=== PATIENT | male | born 1970 | race Caucasian/White ===

== ENCOUNTER → 2018-06-10 16:42 | Outpatient (REF) | payer OTHER, SELFPAY ==
[2018-06-10 20:27] LABS: Abs Immature Grans 0.01 k/cumm (0.0-0.09); Absolute Basophil Count 0.02 k/cumm (0.0-0.2); Absolute Eosinophil Count 0.11 k/cumm (0.0-0.7); Absolute Lymphocyte Count 1.48 k/cumm (1.2-3.4); Absolute Monocyte Count 0.65 k/cumm (0.11-0.7); Absolute Neutrophil Count 3.71 k/cumm (1.2-6.7); Basophils % 0.3; Eosinophils % 1.8; HCT 45.1 % (40.0-50.0); HGB 15.8 g/dL (13.5-17.5); Immature Grans % 0.2; Lymphocytes % 24.7; Mean Corpuscular Volume 88.6 fL (80-95); Mean Platelet Volume 10.6 fL (8.0-11.0); Monocytes % 10.9; Neutrophils % 62.1; Platelet Count 197 x1000/uL (130-400); RBC 5.09 m/cumm (4.50-6.00); RBC Distribution Width 12.5 % (11.8-14.1); White Blood Cell Count 5.98 k/cumm (4.4-10.8)
[2018-06-10 21:08] LABS: ALT 15 U/L (12-78); AST 18 U/L (15-37); Albumin 3.4 g/dL (3.4-5.0); Alkaline Phosphatase 80 U/L (46-116); Anion Gap 10.9 mmol/L (3-11); BUN 13 mg/dL (7-18); Bilirubin, Total 0.9 mg/dL (0.2-1.0); CO2 28.1 mmol/L (21.0-32.0); CREATININE 0.97 mg/dL (0.70-1.30); Calcium 8.7 mg/dL (8.5-10.1); Chloride 101 mmol/L (98-107); Glucose 270 mg/dL (70-100); Potassium 3.8 mmol/L (3.5-5.1); Sodium 140 mmol/L (136-145)
== END ==
LOC: NCHCN 16:42
PROVIDERS: PCP Internal Medicine; Visit Provider Family Medicine
DX: R05 Cough (principal); E11.9 Type 2 diabetes mellitus without complications
CPT/HCPCS: 80053; 85025

== ENCOUNTER 2018-08-05 18:06 | Emergency (ER) | payer OTHER, SELFPAY ==
[2018-08-05 18:10] VITALS: BP 185/117; PULSE 92; RESP 20; TEMP 36.5; O2SAT 99
--- NOTE | 2018-08-05 18:37 | DI.CT_ITS ---
SYMPTOMS/DIAGNOSIS: LEFT FLANK PAIN, ? STONE CT SCAN OF THE ABDOMEN AND PELVIS: No priors. CT scan was performed without oral or intravenous contrast material. The lack of IV contrast does limit evaluation of the abdominal organs. The visualized lung bases are clear. The unenhanced liver, spleen, pancreas, gallbladder and adrenal glands are unremarkable. The kidneys show no evidence of nephrolithiasis or hydronephrosis. The urinary bladder is intact. The reproductive organs are unremarkable. The abdominal aorta shows minimal atherosclerosis but is otherwise unremarkable. Incidental note is made of a circumaortic left renal vein. No significant abdominal or pelvic adenopathy, ascites or pneumoperitoneum is present. Note is made of a small fat-containing umbilical hernia. The bowel shows no evidence of obstruction or inflammation. There is a normal appendix visualized. There are mild degenerative changes seen in the spine. IMPRESSION: No evidence of an acute abdomen.
[2018-08-05 18:48] LABS: Abs Immature Grans 0.01 k/cumm (0.0-0.09); Absolute Basophil Count 0.02 k/cumm (0.0-0.2); Absolute Eosinophil Count 0.11 k/cumm (0.0-0.7); Absolute Lymphocyte Count 1.65 k/cumm (1.2-3.4); Absolute Monocyte Count 0.87 k/cumm (0.11-0.7); Absolute Neutrophil Count 6.24 k/cumm (1.2-6.7); Basophils % 0.2; Eosinophils % 1.2; HCT 41.2 % (40.0-50.0); HGB 14.8 g/dL (13.5-17.5); Immature Grans % 0.1; Lymphocytes % 18.5; Mean Corp. HGB Concentration 35.9 g/dL (32.0-36.0); Mean Corpuscular Hemoglobin 31.2 pg (27.0-33.0); Mean Corpuscular Volume 86.7 fL (80-95); Mean Platelet Volume 10.1 fL (8.0-11.0); Monocytes % 9.8; Neutrophils % 70.2; Platelet Count 213 x1000/uL (130-400); RBC 4.75 m/cumm (4.50-6.00); RBC Distribution Width 12.7 % (11.8-14.1)
[2018-08-05 19:04] LABS: ALT 14 U/L (12-78); AST 14 U/L (15-37); Albumin 3.2 g/dL (3.4-5.0); Alkaline Phosphatase 82 U/L (46-116); Anion Gap 9.7 mmol/L (3-11); BUN 9 mg/dL (7-18); Bilirubin, Total 1.1 mg/dL (0.2-1.0); CO2 27.3 mmol/L (21.0-32.0); CREATININE 0.97 mg/dL (0.70-1.30); Calcium 8.5 mg/dL (8.5-10.1); Chloride 97 mmol/L (98-107); Glucose 234 mg/dL (70-100); Potassium 3.9 mmol/L (3.5-5.1); Sodium 134 mmol/L (136-145); Total Protein 7.4 g/dL (6.4-8.2)
[2018-08-05] MEDS: Lidocaine 5% Patch 1 PATCH TP (19:05)
[2018-08-05] MEDS: Normal Saline 1,000 ML 1000 ML IV (19:06)
[2018-08-05] MEDS: Ketorolac 30 MG/ML VIAL IM (19:07)
[2018-08-05 19:17] LABS: Bilirubin Negative (Negative); Blood Negative (Negative); Clarity Clear; Glucose >=1000 mg/dL (Negative); Ketones 15 mg/dL (Negative); Leukocyte Esterase Negative (Negative); Nitrite Negative (Negative); Specific Gravity 1.015 (1.005-1.025); pH 5.5 (5-8)
--- NOTE | 2018-08-05 19:42 | W.ED.GENAD ---
Discharge Plan Disposition Patient Disposition: HOME Condition: Good Discharge Details Chief Complaint: Nk/Back Pain Clinical Impression: Lumbago, Acute flank pain Primary Care Provider: Jerry Ibrahim ED Provider: Bello Gonzalez Home Meds and New Rx's Prescriptions: New acetaminophen [Mapap Extra Strength] 500 MG tablet 1,000 mg PO Q6H 5 Days Qty: 60 RF: 0 lidocaine [Lidoderm] 1 PATCH patch 1 ea Topical Q24H Qty: 4 RF: 0 ibuprofen [Motrin IB] 200 MG tablet 600 mg PO Q6H 5 Days Qty: 60 RF: 0 No Action hydrochlorothiazide 25 MG tablet 25 mg PO DAILY RF: 0 sertraline 50 MG tablet 50 mg PO DAILY RF: 0 testosterone [AndroGel] 75 GM gel in metered-dose pump 20.25 mg Topical DAILY Qty: 1 RF: 6 insulin glargine [Lantus U-100 Insulin] 100 UNIT/1 ML solution 62 unit SQ HS RF: 0 metformin [Glucophage] 1,000 MG tablet 1,000 mg PO BID@0800,1700 RF: 0 amlodipine 5 MG tablet 5 mg PO BID RF: 0 gabapentin 300 MG capsule 600 mg PO BID RF: 0 losartan 100 MG tablet 100 mg PO DAILY RF: 0 Discharge Instructions Instructions: Low Back Strain (ED), Flank Pain (ED) Additional Instructions: Please take the medication as directed, if you notice any worsening of your symptoms, or any new symptoms such as vomiting, diarrhea, fever, chills, shortness of breath, chest pain, numbness, weakness, or fainting , please return immediately to the emergency department for reevaluation. Please follow up with your primary care provider as soon as possible for reassessment and reevaluation. As always, it was a pleasure participating in your medical care today. Referrals: Jerry Ibrahim MD [Primary Care Provider] - Medical Decision Making This is a 48-year-old male who presents for evaluation of left-sided flank pain. Began suddenly earlier tonight. Describes it as sharp and aching in nature with some radiation towards the anterior groin region. Physical exam demonstrates no significant abnormalities but he does have reproducible left flank pain. He almost demonstrates some hyperesthesia in this area. No abdominal tenderness rebound no evidence of groin herniation. No signs of midline spinal tenderness, he has normal rectal exam, normal strength, movement. We will evaluate for urolithiasis, get a CT scan, check for any other acute etiology. No evidence of chest pain, acute shoulder pain or neck pain, with his symptoms radiating towards the groin feel that his symptoms are inconsistent with any cardiac etiology at this time. 7:[address] scan results have returned and the patient demonstrates no acute process per virtual radiology. No evidence of urolithiasis, no evidence of any other acute process or rib fracture. The patient's laboratory workup demonstrates a negative urinalysis, no significant laboratory abnormalities, no white count, no signs of a left shift or bandemia. CT scan shows no other abnormalities. The patient's vital signs have been completely stable during his entire stay. No significant electrolyte abnormalities except for mild hyperglycemia. The patient did have a Lidoderm patch that was placed, and has had improvement of his symptoms since then. His symptoms are most likely musculoskeletal in origin. Will recommend continued Tylenol, Motrin, and Lidoderm patches. We discussed red flags for which to return the patient understands. I have extensively reviewed the treatment plan and discharge instructions with the patient. I have addressed all patient concerns at this time. The patient was made aware of what symptoms to monitor for that would warrant a return to the emergency department. Discussed the plan with the patient, they demonstrate verbal understanding and agreement with our assessment and plan at this time. HPI General Date/Time Provider Initiated Documentation: 08/05/18 18:21. HPI Narrative: This is a 48-year-old male with a past medical history of diabetes, hypertension, chronic right shoulder pain and elbow pain secondary to previous injuries that is currently being managed by orthopedics, who presents today for left-sided flank pain. Patient states that he was visiting his family member at a local rehab facility when he had a sudden onset of left-sided flank pain which she describes as severe. It radiated down to his groin. It came and went in severity but was always present. He did have some dry heaving but denies any vomiting, diarrhea, he denies any acute chest pain, arm pain, shoulder pain neck pain shortness of breath, pleuritic chest pain, or other complaints. He denies history of kidney stones. His symptoms are made worse with movement, relieved by nothing. Patient also complains of 1 month of mild upper respiratory infection. He has been seen by his PCP for this. He states that he has had some congestion in his nose, but denies any severe headache, vision changes, purulent nasal discharge, ear pain or hearing changes. Patient denies any other complaints at this time. 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 He denies lifting anything particularly heavy recently, he denies any recent trauma. He denies any pertinent family history or history of IV or illicit drug use. He denies any significant tobacco abuse or cardiac history. Related Data Home Medications Medication Instructions Recorded Confirmed insulin glargine [Lantus] 62 unit SQ HS 05/02/13 08/05/18 metformin [Glucophage] 1,000 mg PO BID@0800,1700 05/02/13 08/05/18 amlodipine 5 mg PO BID 09/22/13 08/05/18 gabapentin 600 mg PO BID 09/22/13 08/05/18 losartan 100 mg PO DAILY 09/22/13 08/05/18 hydrochlorothiazide 25 mg PO DAILY tab-cap 12/10/17 08/05/18 sertraline 50 mg PO DAILY tab-cap 12/10/17 08/05/18 testosterone [Androgel] 20.25 mg TOPICAL DAILY #1 script 12/21/17 acetaminophen [Mapap Extra 1,000 mg PO Q6H 5 Days #60 tab 08/05/18 Strength] ibuprofen [Motrin Ib] 600 mg PO Q6H 5 Days #60 tab 08/05/18 lidocaine [Lidoderm] 1 ea TOPICAL Q24H #4 patch 08/05/18 Previous Rx's Medication Instructions Recorded testosterone [Androgel] 20.25 mg TOPICAL DAILY #1 script 12/21/17 acetaminophen [Mapap Extra 1,000 mg PO Q6H 5 Days #60 tab 08/05/18 Strength] ibuprofen [Motrin Ib] 600 mg PO Q6H 5 Days #60 tab 08/05/18 lidocaine [Lidoderm] 1 ea TOPICAL Q24H #4 patch 08/05/18 Allergies Allergy/AdvReac Type Severity Reaction Status Date / Time lisinopril AdvReac Mild Unverified 09/22/13 10:34 General Stated Complaint: Nk/Back Pain KALIN: 3 Review of Systems Review of Systems All systems reviewed & are unremarkable except as noted in HPI and below PFSH Social History Smoking/Tobacco Use Status: Never Exam Narrative Exam Narrative: 1.Const: Well-nourished, Well-developed, appearing stated age 2.Eyes: PERRL, no conjunctival injection, and symmetrical lids. 3.ENT: Atraumatic external nose and ears. Moist MM. Neck: Symmetric, trachea midline, No thyromegaly. 4.CVS: +S1/S2, No murmurs or gallops. Peripheral pulses 2+ and equal in all extremities. Brisk capillary refill in all extremities. 5.RESP: Unlabored respiratory effort. Clear to auscultation bilaterally. No wheezes rales or rhonchi 6.GI: Soft, Nontender/Nondistended, No hepatosplenomegaly. No guarding or rebound. 7.MSK: Normocephalic/Atraumatic, Extremities w/o deformity or ttp No cyanosis or clubbing, Normal movement of all extremities no midline tenderness to palpation over the CTLS spine. Normal ROM in flexion, extension, side bend, and rotation. Patient has +5 out of 5 strength in the lower extremities in dorsiflexion and plantarflexion, knee flexion and extension, hip flexion and extension. There is +2 over 2 dorsalis pedis pulses bilaterally. There is normal sensation to the skin with light touch at the foot, knee, and hip. Normal saddle sensation. Good sensation over the deep sural nerve area bilaterally. Rectal exam deferred. Reflexes are +2 over 4 in the patellar reflex bilaterally. +5 out of 5 strength in the medial, ulnar, radial nerve distribution bilaterally in the hands as well as intact light touch sensation to these dermatomes on the hands. Patient does have some chronic pain in the right elbow and right shoulder secondary to previous injuries that are currently being evaluated by orthopedics at the [facility]. Patient does demonstrate some reproducible left-sided flank pain on palpation and light touch. Similar to hyperesthesias. No evidence of rash or shingles 8.Skin: Warm, Dry. No rashes or lesions. 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 Sensation grossly intact, no focal neurologic deficits. 10.Psych: (AAO) x3. Appropriate mood and affect Course Vital Signs Temperature 36.5 C 08/05/18 18:10 Pulse 92 H 08/05/18 18:10 Respiratory Rate 20 08/05/18 18:10 Blood Pressure 185/117 H 08/05/18 18:10 Pulse Oximetry 99 08/05/18 18:10 Temperature 36.5 C 08/05/18 18:10 Temperature Source Skin 08/05/18 18:10 Pulse 92 H 08/05/18 18:10 Respiratory Rate 20 08/05/18 18:10 Respiratory Effort Short of Breath 08/05/18 18:13 Blood Pressure 185/117 H 08/05/18 18:10 Pulse Oximetry 99 08/05/18 18:10 Pain Level 8 08/05/18 19:07 Lab/Test Results Lab/Test Results: Laboratory Tests Range/Units 08/05/18 08/05/18 08/05/18 18:35 18:35 19:10 WBC (4.4-10.8) k/cumm 8.90 RBC (4.50-6.00) m/cumm 4.75 Hgb (13.5-17.5) g/dL 14.8 Hct (40.0-50.0) % 41.2 MCV (80-95) fL 86.7 MCH (27.0-33.0) pg 31.2 MCHC (32.0-36.0) g/dL 35.9 RDW (11.8-14.1) % 12.7 Plt Count (130-400) x1000/uL 213 MPV (8.0-11.0) fL 10.1 Immature Gran % 0.1 Neutrophils % 70.2 Lymphocytes % 18.5 Monocytes % 9.8 Eosinophils % 1.2 Basophils % 0.2 Absolute Neutrophils (1.2-6.7) k/cumm 6.24 Absolute Lymphocytes (1.2-3.4) k/cumm 1.65 Absolute Monocytes (0.11-0.7) k/cumm 0.87 H Absolute Eosinophils (0.0-0.7) k/cumm 0.11 Absolute Basophils (0.0-0.2) k/cumm 0.02 Sodium (136-145) mmol/L 134 L Potassium (3.5-5.1) mmol/L 3.9 Chloride (98-107) mmol/L 97 L Carbon Dioxide (21.0-32.0) mmol/L 27.3 Anion Gap (3-11) mmol/L 9.7 BUN (7-18) mg/dL 9 Creatinine (0.70-1.30) mg/dL 0.97 Estimated GFR/1.73 m2 (mL/min/1.73m2) >= 60.00 Glucose (70-100) mg/dL 234 H Calcium (8.5-10.1) mg/dL 8.5 Total Bilirubin (0.2-1.0) mg/dL 1.1 H AST (15-37) U/L 14 L ALT (12-78) U/L 14 Alkaline Phosphatase (46-116) U/L 82 Total Protein (6.4-8.2) g/dL 7.4 Albumin (3.4-5.0) g/dL 3.2 L Urine Color (Yellow) Yellow Urine Clarity Clear Urine pH (5-8) 5.5 Ur Specific [place] (1.005-1.025) 1.015 Urine Protein (Negative) mg/dL Negative Urine Ketones (Negative) mg/dL 15 H Urine Blood (Negative) Negative Urine Nitrite (Negative) Negative Urine Bilirubin (Negative) Negative Urine Urobilinogen (Up TO 0.2) EU/dL 1.0 H Ur Leukocyte Esterase (Negative) Negative Urine Glucose (Negative) mg/dL >=1000 H
--- NOTE | 2018-08-05 19:48 | DI.VRAD_ITS ---
EXAM: CT Abdomen and Pelvis Without Intravenous Contrast CLINICAL HISTORY: 48 years old, male; Pain; Abdominal pain TECHNIQUE: Axial computed tomography images of the abdomen and pelvis without intravenous contrast. Coronal and sagittal reformatted images were created and reviewed. COMPARISON: No relevant prior studies available. FINDINGS: Lung bases: Unremarkable. No mass. No consolidation. ABDOMEN: Liver: Unremarkable. Gallbladder and bile ducts: Unremarkable. No calcified stones. No ductal dilation. Pancreas: Unremarkable. No ductal dilation. Spleen: Unremarkable. No splenomegaly. Adrenals: Unremarkable. No mass. Kidneys and ureters: Unremarkable. No obstructing stones. No hydronephrosis. Stomach and bowel: Unremarkable. No obstruction. No mucosal thickening. PELVIS: Appendix: No findings to suggest acute appendicitis. Bladder: Unremarkable. No stones. Reproductive: Unremarkable as visualized. ABDOMEN and PELVIS: Intraperitoneal space: Unremarkable. No free air. No significant fluid collection. Bones/joints: Mild degenerative spondylosis of the lower thoracic and lumbar spine. No acute fracture. No dislocation. Soft tissues: Tiny umbilical hernia containing fat. Vasculature: Unremarkable. No abdominal aortic aneurysm. Lymph nodes: Unremarkable. No enlarged lymph nodes. IMPRESSION: No acute findings. Dictated and Authenticated by: Clarence Cortez MD. Ordering:RANDAL FOX MD
[2018-08-05 20:16] VITALS: BP 154/91; PULSE 80; RESP 16; TEMP 36.8; O2SAT 95
== END 2018-08-05 20:20 | disposition home or self-care (01) ==
PROVIDERS: Emergency Provider Student in an Organized Health Care Education/Training Program; PCP Internal Medicine
DX: M54.5 Low back pain (principal); R10.32 Left lower quadrant pain; E11.65 Type 2 diabetes mellitus with hyperglycemia; Z79.4 Long term (current) use of insulin; I10 Essential (primary) hypertension
CPT/HCPCS: 36415; 80053; 96360; 96372; 99284; 74176; 81003; 85025; J1885

== ENCOUNTER 2018-11-11 16:33 | Outpatient (REF) | payer OTHER, SELFPAY ==
[2018-11-11 21:05] LABS: Abs Immature Grans 0.01 k/cumm (0.0-0.09); Absolute Basophil Count 0.03 k/cumm (0.0-0.2); Absolute Eosinophil Count 0.07 k/cumm (0.0-0.7); Absolute Lymphocyte Count 1.71 k/cumm (1.2-3.4); Absolute Monocyte Count 0.45 k/cumm (0.11-0.7); Basophils % 0.5; Eosinophils % 1.3; HCT 46.5 % (40.0-50.0); HGB 16.6 g/dL (13.5-17.5); Immature Grans % 0.2; Lymphocytes % 31.3; Mean Corp. HGB Concentration 35.7 g/dL (32.0-36.0); Mean Corpuscular Hemoglobin 30.7 pg (27.0-33.0); Mean Corpuscular Volume 86.1 fL (80-95); Mean Platelet Volume 10.5 fL (8.0-11.0); Monocytes % 8.2; Neutrophils % 58.5; Platelet Count 188 x1000/uL (130-400); RBC Distribution Width 13.2 % (11.8-14.1); White Blood Cell Count 5.47 k/cumm (4.4-10.8)
[2018-11-11 22:08] LABS: Iron 81 ug/dL (50-175); Total Iron Binding Capacity 293 ug/dL (250-450); Transferrin Sat 28 % (20-55)
[2018-11-11 22:24] LABS: Anion Gap 10.2 mmol/L (3-11); BUN 12 mg/dL (7-18); CO2 26.8 mmol/L (21.0-32.0); CREATININE 1.02 mg/dL (0.70-1.30); Calcium 9.2 mg/dL (8.5-10.1); Chloride 103 mmol/L (98-107); Ferritin 458 ng/mL (8-388); Glucose 228 mg/dL (70-100); Magnesium 1.7 mg/dL (1.8-2.4); Potassium 4.4 mmol/L (3.5-5.1); Sodium 140 mmol/L (136-145); TSH (W/Ref FT4) 1.52 uIU/mL (0.358-3.74)
== END 2018-11-11 16:53 ==
LOC: NCHCN 16:33
PROVIDERS: PCP Internal Medicine; Visit Provider Nurse Practitioner Family
DX: R55 Syncope and collapse (principal); B37.2 Candidiasis of skin and nail
CPT/HCPCS: 80048; 82728; 83540; 83550; 83735; 84443; 85025

== ENCOUNTER 2018-11-25 01:20 | Outpatient (CLI) | payer OTHER, SELFPAY ==
--- NOTE | 2018-11-28 10:39 | HOLTER_ITS ---
DATE OF DICTATION: November 28, 2018 HOLTER MONITOR REPORT 48-HOUR STUDY Baseline rhythm sinus. Rare single PAC. No SVT or atrial fibrillation. No ventricular ectopy. Heart rates as low as 40-45 bpm, sinus bradycardia, this occurring at 1207 hours. Review of heart rate would suggest lowest heart rates in the manager water wastewater hours up to approximately noon on the first day, manager water wastewater hours to 10 a.m. second day. No symptoms. Average heart rate 72 bpm.
== END 2018-11-25 01:40 ==
PROVIDERS: PCP Internal Medicine; Visit Provider Nurse Practitioner Family
DX: R55 Syncope and collapse (principal); R00.1 Bradycardia, unspecified
CPT/HCPCS: 93225

== ENCOUNTER 2018-11-27 17:20 | Outpatient (CLI) | payer OTHER, SELFPAY | END 2018-11-27 17:40 | PROVIDERS: PCP Internal Medicine; Visit Provider Nurse Practitioner Family | DX: R55 Syncope and collapse (principal); R00.1 Bradycardia, unspecified | CPT/HCPCS: 93226 ==

== ENCOUNTER 2019-12-27 13:58 | Outpatient (CLI) | payer OTHER, SELFPAY | END 2019-12-27 14:18 | PROVIDERS: PCP Internal Medicine; Visit Provider Orthopaedic Surgery | DX: Z01.818 Encounter for other preprocedural examination (principal) ==

== ENCOUNTER 2020-01-08 13:21 | Day surgery (SDC) | payer OTHER, SELFPAY ==
[2020-01-08] VITALS (9 sets, daily range): BP systolic 90–132; BP diastolic 32–88; PULSE 66–79; RESP 12–18; TEMP 36.3–36.9; O2SAT 95–98
[2020-01-08] MEDS: Lactated Ringers 1,000 ML 80 ML IV (14:13)
[2020-01-08] MEDS: ceFAZolin 2 GM/50 ML BAG IVPB (15:10)
--- NOTE | 2020-01-08 15:35 | SKI_PTH ---
PATIENT: Lino Ruiz LOC: [facility] U#:[id number] AGE/SX: 49/M ROOM: RE01/08/[address]: Andi Farrell MD : 1970 BED: DIS: 01/08/2020 SPEC #: [id number] RECD: 01/08/20 18:10 STATUS: ERIK REBrant #: [id number] LIV: 01/08/20 15:[address]: Andi Farrell DEPT: Surgical Specimen RECD BY: Patricia Elias ENTERED: 01/08/20 18:11 SP TYPE: SKI OTHR DR: Jerry Ibrahim Tissues: 1 - SKIN BIOPSY(SHAVE/PUNCH) Procedures: SPECIAL STAIN 2 GROSS AND MICRO LEVEL 4 Comments: [id number]
[2020-01-08] MEDS: Bupivacaine 0.5% Pres-Free 30 ML VIAL (15:36)
--- NOTE | 2020-01-08 15:49 | PDOC.DSDIS_ITS ---
Discharge Plan Disposition Patient Disposition: HOME Condition: Good Discharge Details Reason For Visit: MASS ARCH (R) FOOT Attending Provider: Andi Farrell Primary Care Provider: Jerry Ibrahim Home Meds and New Rx's Prescriptions: New hydrocodone-acetaminophen 5-325 mg tablet 1 tab PO Q6H PRN (Reason: pain) Qty: 7 RF: 0 Continued magnesium oxide 400 mg (241.3 mg magnesium) tablet 200 mg PO DAILY RF: 0 losartan-hydrochlorothiazide 100-25 mg tablet 1 tab PO DAILY RF: 0 tramadol 50 mg tablet 50 mg PO Q6H PRNRF: 0 terazosin 5 mg capsule 5 mg PO QHS RF: 0 valacyclovir 500 mg tablet 500 mg PO BID RF: 0 nystatin 100,000 unit/gram cream 1 applic TP BID RF: 0 albuterol sulfate [Ventolin HFA] 90 mcg/actuation HFA aerosol inhaler 2 puff IH Q4H PRNRF: 0 Levemir U-100 Insulin 100 unit/mL solution 50 unit SC QHS RF: 0 sertraline [Zoloft] 50 mg tablet 50 mg PO DAILY RF: 0 metformin [Glucophage] 1,000 MG tablet 1,000 mg PO BID@0800,1700 RF: 0 gabapentin 300 MG capsule 600 mg PO BID RF: 0 amlodipine 5 mg tablet 10 mg PO DAILY RF: 0 Discharge Instructions Additional Instructions: Try to elevate R foot on 1-2 pillows as much as possible for next 48 hours. Keep dressings dry and in place for 72 hours. After 72 hours, may remove dressings, shower, and get incision wet. Pat wound dry after showering and cover with large band-aid. Put as much weight on R foot as your discomfort allows. Take tylenol or ibuprofen for mild pain. Take hydrocodone for breakthru pain, if needed. Follow up with in 2 weeks. Referrals: Andi Farrell MD [ [facility] STAFF PHYSICIAN] - (f/u in 2 weeks.) Activity:: Activity as Tolerated Remove Dressings/Wound Care:: 72 hours Shower/Bathe:: 72 hours Diet:: As Tolerated Discharge Orders Discharge Orders: Discharge Order (Routine); Ordered 01/08/20 Ordered By: Andi Farrell
[2020-01-08] MEDS: fentaNYL 100 MCG/2 ML VIAL IVP ×2 (16:30→16:40)
[2020-01-08] MEDS: HYDROcodone 5/Acetaminophen 325 TAB PO (17:27)
--- NOTE | 2020-01-09 16:11 | ROE_ITS ---
DATE OF PROCEDURE: January 08, 2020 PREOPERATIVE DIAGNOSIS: Subcutaneous mass, right arch. POSTOPERATIVE DIAGNOSIS: Same. PROCEDURE: Excisional biopsy of subcutaneous mass, arch right foot. ANESTHESIA: General. SURGEON: Andi Farrell M.D. INDICATIONS: This is a 49-year-old white male who noted a mass in the arch of his right foot in appr oximately September of 2019. He began having pain in the area of the arch of his right foot over the next few months as he was working. He then developed some Achilles tendonitis and was put in a work boot. The Achilles tendonitis appeared to calm down, but his arch pain got worse. He was seen and e xamined by me. I felt that he had a nodule in his plantar fascia that was painful. It was in a non- weightbearing portion of the arch. It was fairly large. Probably 2.5 cm in its longest direction. I recommended excisional biopsy to alleviate his discomfort. The risks and complications of the proc edure were explained to the patient in detail preoperatively. PROCEDURE: The patient was taken to the operating room on 01/08/2020. He was placed supine on the ope rating table and a general anesthetic was administered. Once good anesthesia was obtained, a proxima l tourniquet was applied to the right thigh and the right foot and ankle were prepped and draped free in the usual sterile fashion. The right lower extremity was exsanguinated by elevation for two jose nancy and the tourniquet was inflated to 350 mmHg. A longitudinal incision was made over the medial arch just medial to the subcutaneous mass. The inci colton was carried down through the skin and subcu down to the plantar fascia. The incision was about three inches in length. I could easily palpate the nodule. The nodule was really a thickened area o f the plantar fascia. With sharp dissection I freed the plantar fascia from the musculature undernea th, or deep to it. I then excised the thickened plantar fascia nodule and sent it for pathologic exa mination. The rest of the plantar fascia looked normal and did not have any further or other nodules . The wound was irrigated with saline solution. Subcutaneous veins were cauterized. The wound wendi ins were infiltrated with 0.5% Marcaine with an epinephrine solution. The skin edges were approximat ed with interrupted #4-0 nylon sutures. The wound was dressed with Xeroform gauze, sterile gauze 4x4 's, wrapped with a 4-inch Kerlix bandage and wrapped with an RANDA bandage. He was placed in a postop shoe. The tourniquet was released; there was no breakthrough bleeding to the dressings. The patient tolerated the procedure well. His anesthesia was reversed without complications and he was discharg ed to the recovery room in good condition. The patient was discharged home from the Day Surgery Unit when fully recovered from his general anest hesia. He was given instructions to try to elevate his right foot on 1 to 2 pillows as much as possi ble for the next 48 hours. He is to limit his ambulation during this time. He may be weightbearing, as tolerated, to the right foot. He is to keep his dressings clean and dry until he follows up in a week for a wound check. He was given a prescription for breakthrough pain of Hydrocodone with APAP 5/325, one p.o. q6h p.r.n. He will take Tylenol or ibuprofen for mild pain. He will follow-up with me in one week.
== END 2020-01-08 18:26 | disposition home or self-care (01) ==
PROVIDERS: PCP Internal Medicine; Visit Provider Orthopaedic Surgery
PROC: (CPT 28043; principal; 2020-01-08 11:30)
DX: M72.2 Plantar fascial fibromatosis (principal)
CPT/HCPCS: 28043; 88305; 88313; J0690; J1100; J1885; J2405; J3010

== ENCOUNTER 2021-07-17 17:25 | Outpatient (REF) | payer OTHER, SELFPAY ==
[2021-07-17 20:47] LABS: BUN 14 mg/dL (7-18); Chloride 103 mmol/L (98-107); Glucose 237 mg/dL (74-106); Potassium 4.4 mmol/L (3.5-5.1); Sodium 140 mmol/L (136-145)
[2021-07-17 20:54] LABS: Hemoglobin A1C 7.7 % (<5.7)
== END 2021-07-17 17:26 | disposition home or self-care (01) ==
LOC: NCHCN 17:25
PROVIDERS: PCP Internal Medicine; Visit Provider Family Medicine
DX: E11.9 Type 2 diabetes mellitus without complications (principal)
CPT/HCPCS: 80048; 83036

== ENCOUNTER 2021-07-23 00:57 | Outpatient (CLI) | payer OTHER, SELFPAY ==
[2021-07-23 11:17] LABS: Source Nasal/Nares
[2021-07-23 14:12] LABS: COVID-19 PCR Negative (Negative)
== END 2021-07-23 00:58 | disposition home or self-care (01) ==
PROVIDERS: PCP Internal Medicine; Visit Provider Podiatrist
DX: Z20.822 Contact with and (suspected) exposure to COVID-19 (principal); Z01.818 Encounter for other preprocedural examination
CPT/HCPCS: 87635

== ENCOUNTER 2021-07-25 07:42 | Day surgery (SDC) | payer OTHER, SELFPAY ==
[2021-07-25] VITALS (10 sets, daily range): BP systolic 97–153; BP diastolic 59–96; PULSE 61–81; RESP 13–18; TEMP 36.2–36.8; O2SAT 95–100; BMI 30.3
--- NOTE | 2021-07-25 07:06 | HPE_ITS ---
Date of service: 07/25/21 Time of Service: 07:06 History of Present Illness History of Present Illness Chief Complaint: Chronic Achilles tendinitis- tendinosis left lower extremity Narrative: 51-year-old white male with type 2 diabetes with chronic pain associated with left Achilles tendinosis. Nonoperative treatments have failed to provide significant relief of symptoms and he is opting for surgical intervention. [facility] Medical History Diabetes Sleep apnea does not use device Surgical History H/O arthroscopic knee surgery History of nasal surgery Hx of arthroscopy of shoulder Hx of elbow surgery torn tendon Hx of wisdom tooth extraction Social History Smoking/Tobacco Use Status: Never Smoking risk assessment performed?: Yes Alcohol Intake: current Alcohol Intake frequency: holidays/special occasions only Alcohol type: beer Drug use: Never Substance use type: does not use Current gender identity: male Additional Social history: No opportunity to talk privately Meds Allergies and Home Medications Allergies Allergy/AdvReac Type Severity Reaction Status Date / Time lisinopril AdvReac Mild Unverified 07/22/21 14:26 Home Medications Medication Instructions Recorded Confirmed Type metformin [Glucophage] 1,000 mg PO BID@0800,1700 05/02/13 07/22/21 History gabapentin 600 mg PO BID 09/22/13 07/22/21 History albuterol sulfate 90 mcg/actuation 2 puff IH Q4H PRN gm 12/04/19 07/22/21 History aerosol inhaler insulin detemir U-100 100 unit/mL 50 unit SC QHS ml 12/04/19 07/22/21 History subcutaneous solution nystatin 100,000 unit/gram topical 1 applic TP BID 12/04/19 07/22/21 History cream sertraline 50 mg tablet 50 mg PO DAILY 12/04/19 07/22/21 History terazosin 5 mg capsule 5 mg PO QHS 12/04/19 07/22/21 History tramadol 50 mg tablet 50 mg PO Q6H PRN 12/04/19 07/22/21 History valacyclovir 500 mg tablet 500 mg PO BID 12/04/19 07/22/21 History amlodipine 5 mg tablet 10 mg PO DAILY tab 12/13/19 07/22/21 History losartan 100 1 tab PO DAILY 12/13/19 07/22/21 History mg-hydrochlorothiazide 25 mg tablet magnesium oxide 400 mg (241.3 mg 200 mg PO DAILY tab 12/13/19 07/22/21 History magnesium) tablet hydrocodone-acetaminophen 1 tab PO Q6H PRN #7 tab 01/08/20 07/22/21 Rx Exam Narrative Exam Narrative: 51-year-old white male in no acute distress, awake and alert. Head is normocephalic Eyes PERRLA Hearing is adequate Uvula is midline airway looks assessable Heart had regular rate and rhythm without gallops rubs or murmurs noted Lung mcdermott are clear Abdomen was nontender bowel sounds appreciated Peripheral pulses at the ankles easily palpable, no edema Muscle groups 5 out of 5 bilaterally. Diffuse thickening of the left Achilles tendon at its watershed region consistent with tendinosis appreciated. Pain is easily elicited with gentle palpation. Remaining exam is otherwise generally benign Skeletal exam revealed good range of motion of the left ankle. No joint inflammations or gross deformities noted. Neurologically he does suffer from diabetic neuropathy with diminished sensation primarily noted distally within the feet. Impressions: Left Achilles tendinosis chronic Plan: Lady is being brought to the OR for surgical debridement left Achilles tendon. He understands risk and complications pertaining to the potential for pain, scarring, infection, tendon rupture, neurologic injury, ongoing discomfort within the tendon potentially requiring revisional procedures. All questions have been answered in detail. No promises made to final outcome of surgery.
[2021-07-25] MEDS: Lactated Ringers 1,000 ML 80 ML IV (08:28)
--- NOTE | 2021-07-25 08:30 | ANES.PREOP_ITS ---
General Info Date of Service Date Performed: 07/25/21 Height: 5 ft 10 in Weight: 95.8 kg Body Mass Index (BMI): 30.3 Surgical Procedure: Operation Date: 07/25/21 08:55 Proposed Procedures Side Surgeon p Debridement (L) Achilles Tendon/ Resection Fibroma Left Dexter Breen DPM Meds Allergies and Home Medications Allergies Allergy/AdvReac Type Severity Reaction Status Date / Time lisinopril AdvReac Mild Unverified 07/25/21 08:01 Home Medication Medication Instructions Recorded metformin [Glucophage] 1,000 mg PO BID@0800,1700 05/02/13 gabapentin 600 mg PO BID 09/22/13 albuterol sulfate 90 mcg/actuation 2 puff IH Q4H PRN gm 12/04/19 aerosol inhaler insulin detemir U-100 100 unit/mL 50 unit SC QHS ml 12/04/19 subcutaneous solution nystatin 100,000 unit/gram topical 1 applic TP BID 12/04/19 cream sertraline 50 mg tablet 50 mg PO DAILY 12/04/19 terazosin 5 mg capsule 5 mg PO QHS 12/04/19 tramadol 50 mg tablet 50 mg PO Q6H PRN 12/04/19 valacyclovir 500 mg tablet 500 mg PO BID 12/04/19 amlodipine 5 mg tablet 10 mg PO DAILY tab 12/13/19 losartan 100 1 tab PO DAILY 12/13/19 mg-hydrochlorothiazide 25 mg tablet magnesium oxide 400 mg (241.3 mg 200 mg PO DAILY tab 12/13/19 magnesium) tablet hydrocodone-acetaminophen 1 tab PO Q6H PRN #7 tab 01/08/20 Current Visit Medications: Current Medications Generic Name Dose Route Start Last Admin Trade Name Freq PRN Reason Stop Dose Admin Sodium Chloride 500 mls @ 0 mls/hr 07/25/21 06:00 Saline 500ml Bag IV PRN PRN As Directed Cefazolin Sodium 2,000 mg/ 100 mls @ 200 mls/hr 07/25/21 06:00 Sodium Chloride IVPB 07/25/21 16:00 PREOP THEODORE Ringer's Solution 1,000 mls @ 80 mls/hr 07/25/21 06:00 07/25/21 08:28 IV 08/23/21 23:59 80 mls/hr INFUSION [facility] Administration IV Miscellaneous Supplies 1 each 07/25/21 06:00 Iv Access IV DIRECTED [facility] IV Miscellaneous Supplies 1 each 07/25/21 06:00 Iv Access IV 08/23/21 23:59 DIRECTED [facility] Povidone Iodine 0 ml 07/25/21 06:00 Povidone-Iodine Soln. 118 Ml Btl TP 07/25/21 16:00 DIRECTED [facility] Sodium Chloride 0 ml 07/25/21 06:00 Normal Saline Flush 10 Ml Syr IVP PRN PRN Sodium Chloride 0 ml 07/25/21 06:00 Normal Saline Flush 10 Ml Syr IV 08/23/21 23:59 PRN PRN Sodium Chloride 0 ml 07/25/21 06:00 Normal Saline 10 Ml Vial IJ 08/23/21 23:59 DIRECTED PRN Sterile Water 0 ml 07/25/21 06:00 Water,Injection,Sterile 10 Ml Vial IJ 08/23/21 23:59 DIRECTED PRN PFSH Active Problems Active Problems: Problem Status Onset Code Plantar fascial fibromatosis M72.2 Tendonitis, Achilles, right M76.61 Syncope R55 Bronchial pneumonia J18.0 Sexual dysfunction R37 Cough R05 Preventative health care Z00.00 Tinea pedis B35.3 Night sweats R61 Diabetic peripheral neuropathy E11.42 Neck pain, chronic M54.2, G89.29 Diabetic retinopathy, background E11.3299 Overweight E66.3 Herpes, genital A60.00 Depression F32.9 Hypertension I10 Subcutaneous mass of right foot R22.41 Medical History Medical History Diabetes Sleep apnea does not use device Surgical History Surgical History H/O arthroscopic knee surgery History of nasal surgery Hx of arthroscopy of shoulder Hx of elbow surgery torn tendon Hx of wisdom tooth extraction Tobacco Smoking/Tobacco Use Status: Never Alcohol Alcohol Intake: current Alcohol intake frequency: holidays/special occasions only Alcohol type: beer Substance Use Substance use: Never Substance use type: does not use Vital Signs and Lab Results Vital Signs Most Recent Vital Signs in EMR: Most Recent Vital Signs Temp Pulse Resp BP Pulse Ox 36.3 C L 81 16 153/96 H 100 07/25/21 07:53 07/25/21 07:53 07/25/21 07:53 07/25/21 07:53 07/25/21 07:53 Point of Care Results Point of Care Results: Finger Stick Blood Glucose 275 07/25/21 08:20 Lab Results Blood Type / Crossmatch: No Data to Display Complete Blood Count: No Data to Display Complete Metabolic Panel: Sodium Level 140 mmol/L (136-145) 07/17/21 11:30 07/17/21 Potassium Level 4.4 mmol/L (3.5-5.1) 07/17/21 11:30 07/17/21 Chloride Level 103 mmol/L (98-107) 07/17/21 11:30 07/17/21 Carbon Dioxide Level 32.0 mmol/L (21.0-32.0) 07/17/21 11:30 07/17/21 Blood Urea Nitrogen 14 mg/dL (7-18) 07/17/21 11:30 07/17/21 Creatinine 1.0 mg/dL (0.70-1.30) 07/17/21 11:30 07/17/21 Estimated GFR/1.73 m2 >= 60.00 (mL/min/1.73m2) 07/17/21 11:30 07/17/21 Calcium Level 9.0 mg/dL (8.5-10.1) 07/17/21 11:30 07/17/21 Glucose Level 237 mg/dL (74-106) H 07/17/21 11:30 07/17/21 Hemoglobin A1c 7.7 % (<5.7) H 07/17/21 11:30 07/17/21 Liver Function Panel: No Data to Display Coagulation Panel: No Data to Display Cardiac Panel: No Data to Display Arterial Blood Gas: No Data to Display Venous Blood Gas: No Data to Display Pancreas Panel: No Data to Display Thyroid Panel: No Data to Display Infectious Disease: Coronavirus (COVID-19)(PCR) Negative (Negative) 07/23/21 09:41 07/23/21 Coronavirus 2019 Source Nasal/Nares 07/23/21 09:41 07/23/21 Blood Cultures: No Data to Display Toxicology Panel: No Data to Display Anesthesia Assessment and Plan Anesthesia History Personal History: No History of Anesthesia Complications Family History: No Family History of Anesthesia Complications Exercise Tolerance Exercise Tolerance: Metabolic Equivalents>4 Pertinent Negatives Pertinent Negatives: No Symptoms of GERD Cardiac & Pulmonary Exam Cardiac Exam: Normal S1/S2 Heart Sounds Pulmonary Exam: Clear Bilateral Breath Sounds Airway Exam Known Difficult Airway: No Mallampati Class: 2 Mouth Opening: Normal (> 3cm) Thyromental Distance: Greater than 3 cm Neck Range of Motion: Full ROM Neck Circumference: Normal Teeth Condition: Normal Dentition and Removable Dentures/Plates Upper ASA Classification ASA Score: ASA 3 Emergency Case?: No NPO Status NPO Status: NPO Clears >2 hours, Solids >8 hours Anesthesia Plan Resuscitation Status: Full Code Anesthesia Technique: General Anesthesia Airway Planned: Natural Airway Monitors Used: Standard Monitors
[2021-07-25] MEDS: ceFAZolin 2,000 MG in Normal Saline 100 ML 200 ML IVPB (09:15)
[2021-07-25] MEDS: Lidocaine 1% Multi-Dose 50 ML VIAL (09:32)
[2021-07-25] MEDS: Bupivacaine 0.5% Pres-Free 30 ML VIAL (09:32)
--- NOTE | 2021-07-25 10:48 | BONE_PTH ---
PATIENT: Lino Ruiz LOC: [facility] U#:[id number] AGE/SX: 51/M ROOM: RE07/25/[address]: Dexter Breen : 1970 BED: DIS: 07/25/2021 SPEC #: [id number] RECD: 07/25/21 12:42 STATUS: ERIK REQ #: [id number] LIV: 07/25/21 10:[address]: Dexter Breen DEPT: Surgical Specimen RECD BY: Patricia Elias ENTERED: 07/25/21 12:43 SP TYPE: Bone OTHR DR: Jerry Ibrahim Tissues: 1 - BONE BX/CURRETTE NOT PATH FRACTURE Procedures: GROSS AND MICRO LEVEL 4 Comments: [id number]
--- NOTE | 2021-07-25 11:17 | W.PM.OP ---
Date of service: 07/25/21 Time of Service: 11:17 Operative Note Operative Note DATE OF PROCEDURE: 07/25/21 PRE-OP DIAGNOSIS: Achilles tendinosis left lower extremity; plantar fibromatosis left foot Complete Achilles tendon rupture left lower extremity; plantar fibromatosis left foot PROCEDURE: 1.: Open primary repair left Achilles tendon rupture with debridement 2. Excision plantar fibroma left foot SURGEON: Dexter Breen ANESTHESIA TYPE: General:No Airway Refer to Anesthesia Record ESTIMATED BLOOD LOSS: 25 PATHOLOGY: other TOURNIQUET TIME: 0 COMPLICATIONS: None Patient was transported to: same day Patient's condition: stable Indications: 51-year-old white male with chronic Achilles tendinosis left lower extremity interfering with daily activities and work requiring surgical intervention. Also suffering from a plantar fibroma within the medial slip of the plantar fascia causing pain with weightbearing shoe gear and ambulation. Both conditions fail to respond to nonoperative treatments. Lino understands risk and complications of surgery pertaining to pain, scarring, infection, tendon rupture, plantar fibroma recurrence, neurologic injury, the potential for revisional procedures. No promises have been made to the final outcome of surgeries. Informed consent has been obtained. Findings: Upon opening the Achilles tendon surgical site hemorrhagic change within the tendon was noted and upon entering that tissue layer a complete rupture was visualized. Procedure Description: Lino was brought to the operative suite placed in the supine position with the left lower extremity was prepped and draped in the usual podiatric fashion. Anesthesia was achieved through IV general by the anesthesia department. Local block of the Achilles tendon as well as the plantar fibroma was achieved with 30 cc of a 50: 50 mixture 1% lidocaine plain, 0.5% Marcaine plain. The incision lines were then injected with a total of 10 cc 1% lidocaine with epinephrine. Attention was directed to the posterior aspect of the left distal leg over the Achilles tendinosis region. The skin was incised dissection was carried down and it was immediately evident that there was hemorrhagic material within the Achilles tendon tissue this was abnormal in appearance. Hemostasis was acquired with electrocautery as needed the peritenon was incised and dark red bloody material was immediately noted. Inspection of the tendon revealed a full rupture with gapping noted. The hematoma was removed washed out there was a nice distal stump of tendon which was debrided unfortunately the more proximal section was closer to the myotendinous juncture and a little more difficult to grasp this was brought down nevertheless the edges were cleaned up and with the foot in full plantarflexion I was able to bring the edges together utilizing #2 FiberWire as well as 2-0 Vicryl silk suture. The wound was then further closed in layers utilizing 3-0 Vicryl to bring the peritenon together and subcutaneous layers. The skin was subsequently closed with combination of 2 partial continuous running suture of 4-0 nylon in simple interrupted suture. Attention was now directed to the plantar aspect of the foot where a lazy S incision was placed directly over the fibroma. This was located proximal to the first metatarsal head within the medial slip of the plantar fascia. The incision was deepened in controlled depth fashion with hemostasis being acquired with electrocautery. The fibroma was immediately evident once we got through the subcutaneous tissue and it was dissected proximally and distally. From the most proximal aspect a transverse incision was made through the fascia lifting the fascia with the fibroma distally at of the deeper layers. Dissection scissors were then used to further release the fibroma from the surrounding tissues and once I had it up out of the wound it was 7 distally and removed from the operative field sent to pathology. It was highly consistent with a plantar fibroma. Surrounding inspection of the remaining tissue was grossly benign. Copious irrigation was performed with normal saline. The deep layers were repaired with simple interrupted suture 3-0 Vicryl the subcutaneous and subcuticular layers were closed with 3-0 Vicryl and 4-0 Vicryl respectively and the skin was coapted with continuous interlocking suture of 4-0 nylon. Xeroform was applied to both surgical incisions and a well-padded posterior splint was applied with the foot in maximum plantarflexion to maintain the Achilles repair. He will remain nonweightbearing with the left lower extremity protected at all times. He will be followed by myself in the office next week.
--- NOTE | 2021-07-25 11:33 | W.PM.DSUDISC ---
Discharge Plan Disposition Patient Disposition: HOME Condition: Good Discharge Details Reason For Visit: Left Achilles rupture, plantar fibroma Attending Provider: Dexter Breen Primary Care Provider: Jerry Ibrahim Home Meds and New Rx's Prescriptions: Continued magnesium oxide 400 mg (241.3 mg magnesium) tablet 200 mg PO DAILY RF: 0 losartan-hydrochlorothiazide 100-25 mg tablet 1 tab PO DAILY RF: 0 tramadol 50 mg tablet 50 mg PO Q6H PRNRF: 0 terazosin 5 mg capsule 5 mg PO QHS RF: 0 valacyclovir 500 mg tablet 500 mg PO BID RF: 0 nystatin 100,000 unit/gram cream 1 applic TP BID RF: 0 albuterol sulfate [Ventolin HFA] 90 mcg/actuation HFA aerosol inhaler 2 puff IH Q4H PRNRF: 0 Levemir U-100 Insulin 100 unit/mL solution 50 unit SC QHS RF: 0 sertraline [Zoloft] 50 mg tablet 50 mg PO DAILY RF: 0 metformin [Glucophage] 1,000 MG tablet 1,000 mg PO BID@0800,1700 RF: 0 gabapentin 300 MG capsule 600 mg PO BID RF: 0 amlodipine 5 mg tablet 10 mg PO DAILY RF: 0 hydrocodone-acetaminophen 5-325 mg tablet 1 tab PO Q6H PRN (Reason: pain) Qty: 7 RF: 0 Discharge Instructions Activity:: Elevate Remove Dressings/Wound Care:: Do Not Remove Shower/Bathe:: Cover Diet:: Carb Counting Discharge Orders Discharge Orders: Discharge Order (Routine); Ordered 07/25/21 Ordered By: Dexter Breen DS: Diagnosis Discharge Diagnosis (1) Plantar fascial fibromatosis: Status: Acute (2) Tendonitis, Achilles, right: Status: Acute (3) Achilles rupture, left: Status: Acute
--- NOTE | 2021-07-25 11:36 | HPE_ITS ---
Date of service: 07/25/21 Time of Service: 11:36 Assessment and Plan Assessment and plan (1) Plantar fascial fibromatosis: Status: Acute (2) Tendonitis, Achilles, right: Status: Acute (3) Achilles rupture, left: Status: Acute History of Present Illness History of Present Illness Chief Complaint: Chronic Achilles tendinitis- tendinosis left lower extremity Narrative: 51-year-old white male with type 2 diabetes with chronic pain associated with left Achilles tendinosis. Nonoperative treatments have failed to provide significant relief of symptoms and he is opting for surgical intervention. [facility] Medical History Diabetes Sleep apnea does not use device Surgical History H/O arthroscopic knee surgery History of nasal surgery Hx of arthroscopy of shoulder Hx of elbow surgery torn tendon Hx of wisdom tooth extraction Social History Smoking/Tobacco Use Status: Never Smoking risk assessment performed?: Yes Alcohol Intake: current Alcohol Intake frequency: holidays/special occasions only Alcohol type: beer Drug use: Never Substance use type: does not use Current gender identity: male Do you feel safe at home: Yes Do you feel safe in your relationship?: Yes Additional Social history: No opportunity to talk privately Meds Allergies and Home Medications Allergies Allergy/AdvReac Type Severity Reaction Status Date / Time lisinopril AdvReac Mild Unverified 07/25/21 08:01 Home Medications Medication Instructions Recorded Confirmed Type metformin [Glucophage] 1,000 mg PO BID@0800,1700 05/02/13 07/25/21 History gabapentin 600 mg PO BID 09/22/13 07/25/21 History albuterol sulfate 90 mcg/actuation 2 puff IH Q4H PRN gm 12/04/19 07/25/21 History aerosol inhaler insulin detemir U-100 100 unit/mL 50 unit SC QHS ml 12/04/19 07/25/21 History subcutaneous solution nystatin 100,000 unit/gram topical 1 applic TP BID 12/04/19 07/25/21 History cream sertraline 50 mg tablet 50 mg PO DAILY 12/04/19 07/25/21 History terazosin 5 mg capsule 5 mg PO QHS 12/04/19 07/25/21 History tramadol 50 mg tablet 50 mg PO Q6H PRN 12/04/19 07/25/21 History valacyclovir 500 mg tablet 500 mg PO BID 12/04/19 07/25/21 History amlodipine 5 mg tablet 10 mg PO DAILY tab 12/13/19 07/25/21 History losartan 100 1 tab PO DAILY 12/13/19 07/25/21 History mg-hydrochlorothiazide 25 mg tablet magnesium oxide 400 mg (241.3 mg 200 mg PO DAILY tab 12/13/19 07/25/21 History magnesium) tablet hydrocodone-acetaminophen 1 tab PO Q6H PRN #7 tab 01/08/20 07/25/21 Rx Exam Narrative Exam Narrative: 51-year-old white male in no acute distress, awake and alert. Head is normocephalic Eyes PERRLA Hearing is adequate Uvula is midline airway looks assessable Heart had regular rate and rhythm without gallops rubs or murmurs noted Lung mcdermott are clear Abdomen was nontender bowel sounds appreciated Peripheral pulses at the ankles easily palpable, no edema Muscle groups 5 out of 5 bilaterally. Diffuse thickening of the left Achilles tendon at its watershed region consistent with tendinosis appreciated. Pain is easily elicited with gentle palpation. Remaining exam is otherwise generally benign Skeletal exam revealed good range of motion of the left ankle. No joint inflammations or gross deformities noted. A firm soft tissue mass is appreciated within the medial slip of the plantar fascia just proximal to the first metatarsal head of the left foot consistent with plantar fibroma. This has been problematic for him interfering with shoe gear weightbearing and ambulation. Neurologically he does suffer from diabetic neuropathy with diminished sensation primarily noted distally within the feet. Impressions: Left Achilles tendinosis chronic Left plantar fibromatosis Plan: Lino is being brought to the OR for surgical debridement left Achilles tendon and resection of the plantar fibroma. he understands risks and complications pertaining to the potential for pain, scarring, infection, tendon rupture, neurologic injury, ongoing discomfort within the tendon potentially requiring revisional procedures. All questions have been answered in detail. No promises made to final outcome of surgery. Results Last Vital Signs Temp 36.7 C 07/25/21 11:33 Pulse 62 07/25/21 11:33 Resp 13 07/25/21 11:33 BP 103/60 07/25/21 11:33 Pulse Ox 95 07/25/21 11:33
[2021-07-25] MEDS: fentaNYL 100 MCG/2 ML VIAL IVP (12:09)
[2021-07-25] MEDS: oxyCODONE 5 mg/Acetaminophen 325 mg TAB 1 TAB PO (13:35)
--- NOTE | 2021-07-25 13:57 | W.ANESPOSTOP ---
Postoperative Evaluation Date, Time and Location Date Performed: 07/25/21 Time Performed: 13:58 Patient Location: Day Surgery Unit Vital Signs Most Recent Imported Vital Signs: Most Recent Vital Signs Temp Pulse Resp BP Pulse Ox 36.3 C L 67 16 147/74 H 98 07/25/21 13:10 07/25/21 13:10 07/25/21 13:10 07/25/21 13:10 07/25/21 13:10 Pain Score Most Recent Pain Score: Most Recent Pain Score Pain Level 6 07/25/21 13:10 Assessment Mental Status: Awake (Alert & Oriented to Patient Baseline) Airway and Respiratory Function: Patent airway with normal (patient baseline) respiratory exam Cardiovascular Function: Hemodynamically Stable Hydration Status: Adequately Hydrated Nausea & Vomiting: No Nausea or Vomiting Pain: Pain is tolerable per patient Peripheral Nerve Block: Patient did not receive a nerve block
== END 2021-07-25 14:10 | disposition home or self-care (01) ==
PROVIDERS: PCP Internal Medicine; Visit Provider Podiatrist
PROC: (CPT 27650; principal; 2021-07-25 08:45)
DX: M72.2 Plantar fascial fibromatosis (principal); M76.61 Achilles tendinitis, right leg; E11.9 Type 2 diabetes mellitus without complications; G47.30 Sleep apnea, unspecified
CPT/HCPCS: 27650; 28060; 88305; 88304; J0690; J1100; J2001; J2405; J2704; J3010

== ENCOUNTER 2022-02-04 06:32 | Emergency (ER) | payer BC, SELFPAY ==
[2022-02-04] VITALS (26 sets, daily range): BP systolic 151–185; BP diastolic 75–96; PULSE 75–104; RESP 0–22; TEMP 36.7–37.9; O2SAT 84–100
--- NOTE | 2022-02-04 07:00 | RT.EKG_ITS ---
APPROVED REPORT Exam: Resting ECG Reason for Exam: cough, syncope Patient Location: E HR:88 bpm ECG Measurements Heart Rate 88 AXIS [place] 166 P 48 QRSd 90 QRS 31 QT 347 T 14 QTc 421 Conclusion Sinus rhythm...normal P axis, V-rate 60- 99 normal sinusrhythm, normal axis, normal intervals, non ischemic
--- NOTE | 2022-02-04 07:05 | ED.GENADUL_ITS ---
Discharge Plan Disposition Patient Disposition: STILL A PATIENT Condition: Stable Discharge Details Chief Complaint: RespSymp Clinical Impression: Cough, Fever Primary Care Provider: Jerry Ibrahim ED Provider: Navneet Moore Home Meds and New Rx's Prescriptions: No Action magnesium oxide 400 mg (241.3 mg magnesium) tablet 200 mg PO DAILY 0RF losartan-hydrochlorothiazide 100-25 mg tablet 1 tab PO DAILY 0RF tramadol 50 mg tablet 50 mg PO Q6H PRN0RF terazosin 5 mg capsule 5 mg PO QHS 0RF valacyclovir 500 mg tablet 500 mg PO BID 0RF nystatin 100,000 unit/gram cream 1 applic TP BID 0RF albuterol sulfate [Ventolin HFA] 90 mcg/actuation HFA aerosol inhaler 2 puff IH Q4H PRN0RF Levemir U-100 Insulin 100 unit/mL solution 50 unit SC QHS 0RF sertraline [Zoloft] 50 mg tablet 50 mg PO DAILY 0RF metformin [Glucophage] 1,000 MG tablet 1,000 mg PO BID@0800,1700 0RF gabapentin 300 MG capsule 600 mg PO BID 0RF amlodipine 5 mg tablet 10 mg PO DAILY 0RF hydrocodone-acetaminophen 5-325 mg tablet 1 tab PO Q6H PRN (Reason: pain) Qty: 7 0RF Medical Decision Making 51-year-old male history of diabetes tension generalized fatigue nausea vomiting dry cough and low energy over the last several days, multiple negative home Covid test, patient appears mildly uncomfortable fatigue does have dry cough on examination clear lungs, no hypoxia, low-grade fever,-suspicion for viral syndrome must consider COVID-19 versus early bacterial pneumonia versus gastroenteritis versus less likely primary cardiac etiology such as ACS however in the setting of possible syncopal episode will evaluate with EKG and troponin as well as basic labs, will obtain chest x-ray, must consider component of dehydration given persistent nausea vomiting over the past several days has also consider electrolyte abnormalities. Will provide fluid hydration, dose of dexamethasone for anti-inflammatory, Zofran for antiemetic. Close reassessment disposition pending result HPI General Date/Time Provider Initiated Documentation: 02/04/22 06:54 . HPI Narrative: 51-year-old male history of diabetes, obesity, presents with several days of fatigue nausea intermittent vomiting dry cough, feels very weak generalized and either tripped and fell or was so fatigued that he fell to the ground yesterday. Related Data Home Medications Medication Instructions Recorded Confirmed metformin 1,000 mg tablet 1,000 mg PO BID@0800,1700 05/02/13 02/04/22 (Glucophage) gabapentin 300 mg capsule 600 mg PO BID 09/22/13 02/04/22 albuterol sulfate 90 mcg/actuation 2 puff IH Q4H PRN gm 12/04/19 02/04/22 aerosol inhaler (Ventolin HFA) insulin detemir U-100 100 unit/mL 50 unit SC QHS ml 12/04/19 02/04/22 subcutaneous solution (Levemir U-100 Insulin) nystatin 100,000 unit/gram topical 1 applic TP BID 12/04/19 07/25/21 cream sertraline 50 mg tablet (Zoloft) 50 mg PO DAILY 12/04/19 02/04/22 terazosin 5 mg capsule 5 mg PO QHS 12/04/19 02/04/22 tramadol 50 mg tablet 50 mg PO Q6H PRN 12/04/19 07/25/21 valacyclovir 500 mg tablet 500 mg PO BID 12/04/19 07/25/21 amlodipine 5 mg tablet 10 mg PO DAILY tab 12/13/19 02/04/22 losartan 100 1 tab PO DAILY 12/13/19 02/04/22 mg-hydrochlorothiazide 25 mg tablet magnesium oxide 400 mg (241.3 mg 200 mg PO DAILY tab 12/13/19 02/04/22 magnesium) tablet hydrocodone 5 mg-acetaminophen 325 1 tab PO Q6H PRN #7 tab 01/08/20 07/25/21 mg tablet Previous Rx's Medication Instructions Recorded hydrocodone 5 mg-acetaminophen 325 1 tab PO Q6H PRN #7 tab 01/08/20 mg tablet Allergies Allergy/AdvReac Type Severity Reaction Status Date / Time lisinopril AdvReac Mild Unverified 07/25/21 08:01 General Stated Complaint: RespSymp KALIN: 3 Review of Systems Narrative: Review of Systems Constitutional: Fever fatigue Eyes: negative ENT: negative Cardiovascular: negative Respiratory: Cough Gastrointestinal: Nausea vomiting : negative Musculoskeletal: negative Skin: negative Neurologic: negative Psych: negative PFSH All Active Problems (Updated 02/04/22 @ 07:14 by Navneet Moore MD) Cough (Acute) Fever (Acute) Achilles rupture, left (Acute) Plantar fascial fibromatosis (Acute) Tendonitis, Achilles, right (Acute) Syncope (Chronic) Bronchial pneumonia (Acute) Sexual dysfunction (Acute) Cough (Acute) Preventative health care (Acute) Tinea pedis (Acute) Night sweats (Acute) Diabetic peripheral neuropathy (Acute) Neck pain, chronic (Acute) Diabetic retinopathy, background (Acute) Overweight (Acute) Herpes, genital (Acute) Depression (Chronic) Hypertension (Chronic) Subcutaneous mass of right foot (Acute) plantar aspect Medical History Diabetes Sleep apnea does not use device Surgical History H/O arthroscopic knee surgery History of nasal surgery Hx of arthroscopy of shoulder Hx of elbow surgery torn tendon Hx of wisdom tooth extraction Social History Smoking/Tobacco Use Status: Never Smoking risk assessment performed?: Yes Alcohol Intake: current Alcohol Intake frequency: holidays/special occasions only Alcohol type: beer Drug use: Never Substance use type: does not use Current gender identity: male Do you feel safe at home: Yes Do you feel safe in your relationship?: Yes Additional Social history: No opportunity to talk privately Exam Narrative Exam Narrative: Physical Examination General: alert, awake, cooperative, mildly uncomfortable appearing HEENT: normocephalic, atraumatic; PERRL, EOM intact, conjunctiva normal; no nasal discharge; moist mucous membranes, oral and pharyngeal mucosa normal, tolerating secretions Neck: supple, trachea midline; full ROM Chest: normal to inspection Respiratory: normal respiratory effort, speaking in full sentences, clear to auscultation, no wheezing, rales or rhonchi Cardiac: regular rate, regular rhythm, S1S2 intact, no murmurs rubs or gallops GI: abdomen soft, non-tender, non-distended; no palpable mass or hepatosplenomegaly Skin: no lesions, rashes or trauma appreciated Neuro: AAOx3, normal speech, moving all extremities Psych: Appropriate mood and affect Course Vital Signs Vital signs: Vital Signs Temperature 37.9 C H 02/04/22 06:36 Pulse 104 H 04/06/22 06:36 Respiratory Rate 18 02/04/22 06:36 Pulse Oximetry 100 02/04/22 06:36 Temperature 37.9 C H 02/04/22 06:36 Temperature Source Tympanic 02/04/22 06:36 Pulse 104 H 02/04/22 06:36 Respiratory Rate 18 02/04/22 06:36 Respiratory Effort 02/04/22 06:39 Respiratory Depth Normal 02/04/22 06:39 Blood Pressure 185/96 H 02/04/22 06:40 Blood Pressure Position Supine 02/04/22 06:36 Pulse Oximetry 100 02/04/22 06:36 Oxygen Delivery Method Room Air 02/04/22 06:36 Oxygen Flow Rate 0 02/04/22 06:36 Pain Level 7 02/04/22 06:36
[2022-02-04 07:12] LABS: Abs Immature Grans 0.01 10^3/uL (0.0-0.06); Absolute Basophil Count 0.02 10^3/uL (0.0-0.2); Absolute Eosinophil Count 0.01 10^3/uL (0.0-0.7); Absolute Lymphocyte Count 0.73 10^3/uL (1.2-3.4); Absolute Monocyte Count 0.82 10^3/uL (0.1-0.8); Absolute Neutrophil Count 6.26 10^3/uL (1.2-6.7); Basophils % 0.3; Eosinophils % 0.1; HGB 14.7 g/dL (13.5-17.5); Immature Grans % 0.1; Lymphocytes % 9.3; MCH 30.9 pg (27.0-33.0); MCHC 34.2 % (32.0-36.0); MCV 90.5 fL (80-95); MPV 10.2 fL (8.0-11.0); Monocytes % 10.4; Neutrophils % 79.8; Nucleated RBC 0 %; Platelet Count 159 10^3/uL (130-400); RBC 4.75 10^6/uL (4.36-5.78); RDW 12.3 % (11.8-14.1); WBC 7.85 10^3/uL (4.4-10.8)
[2022-02-04] MEDS: Normal Saline 1,000 ML 1000 ML IV (07:15)
[2022-02-04] MEDS: Ondansetron 4 MG/2 ML VIAL IVP (07:15)
[2022-02-04] MEDS: Dexamethasone 10 MG/ML VIAL IVP (07:20)
--- NOTE | 2022-02-04 07:28 | DI.RAD_ITS ---
Exam(s) XR PORTABLE CHEST AP EXAM: XR PORTABLE CHEST AP CLINICAL HISTORY: cough, fever. TECHNIQUE: 2D digital imaging was performed. COMPARISON: No exams were available for comparison FINDINGS: Single AP portable view. Heart size is upper normal. The mediastinum is not widened. Lungs are clear. No infiltrates nor obvious pleural effusions. IMPRESSION: No acute pulmonary findings on this single AP portable view of the chest. DATA REPOSITORY: RADIATION DOSE DELIVERED: All CT scans at this facility use at least one of these dose optimization techniques: automated exposure control; mA and/or kV adjustment per patient size (includes targeted e xams where dose is matched to clinical indication); or iterative reconstruction.
[2022-02-04 07:37] LABS: ALT 19 U/L (16-63); AST 21 U/L (15-37); Albumin 3.5 g/dL (3.4-5.0); Alkaline Phosphatase 74 U/L (46-116); Anion Gap 10.2 mmol/L (3-11); BUN 14 mg/dL (7-18); Bilirubin, Total 0.6 mg/dL (0.2-1.0); CO2 26.8 mmol/L (21.0-32.0); Calcium 8.6 mg/dL (8.5-10.1); Chloride 97 mmol/L (98-107); Glucose 248 mg/dL (74-106); Potassium 4.2 mmol/L (3.5-5.1); Sodium 134 mmol/L (136-145); Total Protein 7.7 g/dL (6.4-8.2); Troponin I < 50 ng/L (<or=60)
--- NOTE | 2022-02-04 07:38 | DI.VRAD_ITS ---
PROCEDURE INFORMATION: Exam: XR Chest Exam date and time: 02/04/2022 7:12 AM Age: 51 years old Clinical indication: Cough and fever; Patient HX: Cough, fever TECHNIQUE: Imaging protocol: XR of the chest. Views: 1 view. COMPARISON: CT ABDOMEN PELVIS WO 08/05/2018 7:02 PM FINDINGS: Tubes, catheters and devices: Monitoring leads project over the chest. Lungs: Low lung volumes. No pneumonia or pulmonary edema. Pleural spaces: No pleural effusion. No pneumothorax. Heart/Mediastinum: Cardiac size not enlarged. Central vessels unremarkable. Vasculature: Aorta normal caliber without aneurysm. Bones/joints: Mild degenerative changes noted throughout the spine. IMPRESSION: Low lung volumes. No acute process. Dictated and Authenticated by: Ozzy Nair MD. Ordering:CHETNA Toth MD
[2022-02-04 08:47] LABS: COVID-19 PCR Negative (Negative); Influenza A PCR Negative (Negative); Influenza B PCR Negative (Negative); RSV PCR Negative (Negative)
[2022-02-04 08:59] LABS: Source Nasopharynx
--- NOTE | 2022-02-04 10:15 | DI.RAD_ITS ---
Exam(s) XR HIP RT COMPLETE AP PELVIS EXAM: XR HIP RT COMPLETE AP PELVIS CLINICAL HISTORY: fall, pain. TECHNIQUE: 2D digital imaging was performed. COMPARISON: CT CT ABDOMEN PELVIS WO from 08/05/2018 FINDINGS: 3 views There is no evidence of obvious pelvic nor hip fracture. Mild degenerative changes are seen in the h ips. There is an amorphous type calcifications seen above the greater trochanter of the right hip which me asures approximately 9 x 7 millimeters, not having typical appearance of a fracture fragment. IMPRESSION: 9 x 7 millimeter osteophytic density seen above the greater trochanter of the right hip. This does n ot have the typical appearance of a fracture fragment. Indeed, it was also evident on prior CT scan of the abdomen performed 2018. DATA REPOSITORY: RADIATION DOSE DELIVERED:
--- NOTE | 2022-02-04 11:01 | W.EDPROG ---
Date of service: 02/04/22 Time of Service: 08:00 Medical Decision Making Care signed out by Dr. Moore, please see his documentation regarding initial ED presentation course. Plan at signout was to follow-up on labs, chest x-ray, and reassess patient for disposition. Labs reviewed: No leukocytosis, no electrolyte abnormalities, COVID-19 is negative. Glucose is elevated. Chest x-ray is reviewed and interpreted by radiology: No acute process. Patient was reassessed and notes continued fatigue, nausea improved, continues to have mild headache. Patient also notes right hip pain. He states he fell yesterday and impacted his hip. He does have some tenderness over his lateral hip and pain with external rotation. Consider fracture. Will obtain x-ray. Right hip x-ray was reviewed and interpreted by me: No fracture. Suspect contusion On reassessment patient has no meningismus. Patient is hypertensive and notes was not able to keep down his meds. Now tolerating p.o. Suspect viral illness, plan for supportive care and outpatient follow-up. Disposition decision was made weighing the risks and benefits of hospitalization versus outpatient treatment, the risk for further decompensation, and the patient's wishes. The patient was stable and requested discharge. Prior to discharge, my usual and customary return precautions were reviewed with the patient - this included follow-up instructions and reason to return to the emergency department if condition worsens, does not improve as expected, or other new concerns arise. Sign Out Sign Out Data: Sign Out Comment: cough, fever, fatigue, concern for covid v other viral syndrome; pending labs, xray, ekg, reassessment after fluids and meds for dispo Last updated by Navneet Moore MD at 02/04/22 07:17 Discharge Plan Disposition Patient Disposition: HOME Condition: Stable Discharge Details Clinical Impression: Cough, Fever, High blood pressure, Headache, Hyperglycemia, Viral illness, Contusion of hip, right Primary Care Provider: Jerry Ibrahim ED Provider: Dank Miller Home Meds and New Rx's Prescriptions: New ondansetron 4 mg tablet,disintegrating 4 mg PO Q8H PRNQty: 10 0RF Continued magnesium oxide 400 mg (241.3 mg magnesium) tablet 200 mg PO DAILY 0RF losartan-hydrochlorothiazide 100-25 mg tablet 1 tab PO DAILY 0RF tramadol 50 mg tablet 50 mg PO Q6H PRN0RF terazosin 5 mg capsule 5 mg PO QHS 0RF valacyclovir 500 mg tablet 500 mg PO BID 0RF albuterol sulfate [Ventolin HFA] 90 mcg/actuation HFA aerosol inhaler 2 puff IH Q4H PRN0RF Levemir U-100 Insulin 100 unit/mL solution 50 unit SC QHS 0RF sertraline [Zoloft] 50 mg tablet 50 mg PO DAILY 0RF metformin [Glucophage] 1,000 MG tablet 1,000 mg PO BID@0800,1700 0RF gabapentin 300 MG capsule 600 mg PO BID 0RF amlodipine 5 mg tablet 10 mg PO DAILY 0RF Discontinued nystatin 100,000 unit/gram cream 1 applic TP BID 0RF Discharge Instructions Additional Instructions: Please drink plenty of fluids and allow for plenty of rest. Be sure to take your medication as prescribed. Use Zofran as prescribed for nausea. Please contact your primary care physician to arrange follow-up. Return to the ER immediately for any worsening or new concerning symptoms. Stand Alone Forms: Work Release Referrals: Jerry Ibrahim MD [Primary Care Provider] - Discharge Data Discharge Date/Time-TO BE ENTERED AT DEPARTURE: 02/04/22 11:20
--- NOTE | 2022-02-04 11:06 | NUR.NOTE ---
PO challenge per MD Nursing Note:
--- NOTE | 2022-02-10 17:30 | INDS_ITS ---
Date of service: 02/10/22 PT Notes Physical Therapy Inpatient Discharge Summary Date: 02/19/22 Dates of services: 02/06/2022 through 02/09/2022 This is a clinical summary of care provided for the duration of dates listed above. No charge was made in the completion of this documentation. Referring Doctor: John Wing MD PT Orders: PT CONSULT: Eval and treat Precautions: Fall. Standard. Patient Profile/Admitting Diagnosis:? Lino is a 51 yo male that presented to the ER the morning of 02/04/22 for generalized fatigue, nausea, vomiting, and a dry cough for the last several days. He was discharged home then returned back to the ER the following afternoon for same complaint. He had a fall on Wednesday landing on his right hip hard. He is having pain in bilateral anterior thighs and lateral hips, more so on right. Ovverall not having back pain. Lumbar MRI this morning showed L5-S1 level there is central-right paracentral protrusion as described above.? There is no central canal stenosis.? There is mild right-sided foraminal stenosis at this level.? Exiting left neural foramen is nicely patent. PMHX: See EMR Social History/Home Situation: Lives with spouse in single level home, ramp to enter. Independent at baseline without AD. Works at [employer]. Equipment Owned/DME: Wheelchair, walker, commode Subjective: NT. See most recent STRATIGRAPHER notes. Objective:? General Observation: NT. See most recent STRATIGRAPHER notes. Mental Status: NT. See most recent STRATIGRAPHER notes. Pain: NT. See most recent STRATIGRAPHER notes. ROM: Right Upper Extremity: Shoulder Flexion WFL. Shoulder abduction WFL. Elbow flexion WFL. Wrist flexion WFL. Opening and closing of hand WFL. Left Upper Extremity: Shoulder Flexion WFL. Shoulder abduction WFL. Elbow flexion WFL. Wrist flexion WFL. Opening and closing of hand WFL. Right Lower Extremity: Hip flexion WFL. Hip abduction WFL. Knee flexion WFL. Ankle dorsiflexion WFL. Ankle plantarflexion WFL. Left Lower Extremity: Hip flexion WFL. Hip abduction WFL. Knee flexion WFL. Ankle dorsiflexion WFL. Ankle plantarflexion WFL. Strength: Right Upper Extremity: Shoulder flexors 5/5. Shoulder abductors 5/5. Elbow flexors 5/5. Elbow extensors 4+/5. Teacher Vocational Training strong. Left Upper Extremity: Shoulder flexors 5-/5. Shoulder abductors 5/5. Elbow flexors 5/5. Elbow extensors 4+/5. Teacher Vocational Training strong. Right Lower Extremity: Hip flexors Not assessed. Knee flexors 5/5. Knee extensors 4+/5 and pain. Ankle dorsiflexors 5/5. Left Lower Extremity: Hip flexors Not assessed. Knee flexors 5/5. Knee extensors 4+/5 and pain. Ankle dorsiflexors 5/5. Sensation:?Intact as to pain and pressure on bilateral lower extremities. Bed Mobility/Transfers: Supine to sit: independent Sit to supine: supervision Sit to stand: supervision Stand to sit: supervision Gait:?UP to 200 feet using FWW with stand by assist with report of continued pain in B hips after activity at 10/10 in anterior thigh. Balance:? Static Sitting: Normal Dynamic Sitting: Normal Static Standing: Fair Dynamic Standing: Poor Assessment: Patient is discharged from services for immediate intervention of bilateral hip abcessess. Will re-evaluate once appropriate agin for PT. Patient presents with clinical signs and symptoms consistent with current/admitting diagnoses that have resulted to mobility limitations, gait instability, generalized weakness, and impairment of motor control as demonstrated by the following impairment level findings: 1. Decreased strength to proximal LE major muscle groups 2. Impaired standing balance 3. Impaired activity tolerance 4. Limitation of joint range of motion in hip flexors, knee extension Impairments are contributing to the following functional limitations: 1. Dependent bed mobility skills 2. Increased dependence with transfers 3. Inability to safely ambulate without assistive device and physical assistance 4. Increase completion time for mobility ADL performance 5. Increased fall risk 6. Inability to negotiate steps alone safely Goals: Goals x1 week 1. Supine-Sit: independent MET 2. Sit-Supine: independent MET 3. Sit-Stand: independent NOT MET 4. Stand-Sit: independent NOT MET 5. Bed-Chair: independent NOT MET 6. Chair-Bed: independent NOT MET 7. Independent gait on level surface with use of least restrictive device for at least 300 feet without report of pain nor dyspnea NOT MET 8. Independent stair negotiation while holding onto bilateral rails for at least 10 steps without report of pain nor dyspnea NOT MET 9. Independent with home exercise program NOT MET 10. Good static and dynamic standing balance/tolerance NOT MET DISCHARGE RECOMMENDATIONS: Re-evaluation with new referral after drainage of bilateral hip drainage. TREATMENT CODE/TIME: NC Thank you for the opportunity to participate in the care of this patient. Ilsa Judd PT, DPT, CLT [facility] [place], [place]
== END 2022-02-04 11:20 | disposition home or self-care (01) ==
PROVIDERS: Emergency Medicine; Emergency Provider Student in an Organized Health Care Education/Training Program; PCP Internal Medicine
DX: R05.1 Acute cough (principal); R50.9 Fever, unspecified; M25.552 Pain in left hip; Z20.822 Contact with and (suspected) exposure to COVID-19; W18.39XA Other fall on same level, initial encounter; R55 Syncope and collapse
CPT/HCPCS: 36415; 80053; 87637; 93005; 96361; 96374; 96375; 99284; U0003; 71045; 73502; 84484; 85025; 93010; J1100; J2405

== ENCOUNTER 2022-02-05 16:31 | Inpatient (IN) | payer BC, SELFPAY ==
[2022-02-05 16:35] VITALS: BP 193/86; PULSE 85; RESP 23; TEMP 37.9; O2SAT 100
[2022-02-05 16:45] VITALS: RESP 23
--- NOTE | 2022-02-05 16:51 | ED.GENADUL_ITS ---
Discharge Plan Disposition Patient Disposition: [facility] INPATIENT Condition: Stable Discharge Details Clinical Impression: Acute pyelonephritis, Fever, Bilateral hip pain, Low back pain Admit Date/Time: 02/06/22 19:13 Admit Provider: John Geronimo Attending Provider: John Geronimo Primary Care Provider: Jerry Ibrahim ED Provider: Zayra Steen Discharge Data Discharge Date/Time-TO BE ENTERED AT DEPARTURE: 02/05/22 20:49 Medical Decision Making 51-year-old male with a history of obesity, diabetes and hypertension presents for vomiting, cough, shortness of breath, fever, low back and bilateral hip pain for the past few days. He denies cauda equina symptoms. Seen here yesterday for the same complaint and had a negative fluvid, unremarkable labs and chest xray and hip xray negative for acute findings. Temp 101.3 oral on arrival. Patient appears significantly uncomfortable and is moaning throughout exam. Patient has significant tenderness to light touch of his bilateral proximal thighs. He has significant pain in his bilateral hips and proximal thighs with limited range of motion of his hips due to pain but there is no obvious evidence of trauma or cellulitis and his distal pulses are intact w/o obvious focal deficits but limited neuro exam secondary to level of pain. He has no midline spinal tenderness. His abdomen is soft and nontender. His lungs are clear. His oxygen saturation is 100% on room air. He has no obvious meningeal signs. Differential diagnosis includes COVID, flu, UTI, pyelonephritis, colitis, pneumonia. As he has no history of IV drug use or evidence of spinal erythema, epidural abscess appears unlikely. We will place an IV, bolus IV fluids, screening labs, urinalysis, fluvid, CT chest abdomen pelvis and give Tylenol, ibuprofen, fluids and reassess. Labs and imaging reviewed. White blood cell count 11. Lactate 2.7. Glucose 247. Bicarb normal at 24. Anion gap minimally elevated at 12.7. Troponin negative. Urinalysis notes findings consistent with UTI. Fluvid negative. CT chest abdomen and pelvis negative for acute findings. There was questionable mild hazy opacities at the lung field and mild pulmonary edema cannot be excluded but no obvious consolidation. Patient reassessed and he is still complaining of significant pain in his bilateral hips. His overall presentation appears likely consistent with pyelonephritis. History and presentation does not appear consistent with cauda equina syndrome at this time. Will admit for IV antibiotics, pain control and observation. Case discussed with Dr. Geronimo who accepts patient for admission. A dose of Rocephin ordered. Medical Records Medical records reviewed: Yes I reviewed the patient's medical records. Medical records narrative: 02/04/22 XR PORTABLE CHEST AP CLINICAL HISTORY: ? cough, fever. ? TECHNIQUE:? 2D digital imaging was performed. COMPARISON:? No exams were available for comparison FINDINGS: Single AP portable view. Heart size is upper normal.? The mediastinum is not widened. Lungs are clear.? No infiltrates nor obvious pleural effusions. IMPRESSION: No acute pulmonary findings on this single AP portable view of the chest. 02/04/22 ?XR HIP RT COMPLETE ? AP PELVIS CLINICAL HISTORY: ? fall, pain. ? TECHNIQUE:? 2D digital imaging was performed. COMPARISON:? CT CT ABDOMEN ? PELVIS WO from 08/05/2018 FINDINGS: 3 views There is no evidence of obvious pelvic nor hip fracture.? Mild degenerative changes are seen in the hips. There is an amorphous type calcifications seen above the greater trochanter of the right hip which measures approximately 9 x 7 millimeters, not having typical appearance of a fracture fragment. IMPRESSION: 9 x 7 millimeter osteophytic density seen above the greater trochanter of the right hip.? This does not have the typical appearance of a fracture fragment.? Indeed, it was also evident on prior CT scan of the abdomen performed 2017. Imaging Data Radiologic Study: Radiologist's impression: CTA Chest With Contrast Exam date and time: 02/05/2022 6:06 PM Age: 51 years old Clinical indication: Other: Cough, SOB, vomiting, b/l hip pain TECHNIQUE: Imaging protocol: Computed tomographic angiography of the chest with contrast. 3D rendering (Not supervised by radiologist): MIP and/or 3D reconstructed images were created by the technologist. Radiation optimization: All CT scans at this facility use at least one of these dose optimization techniques: automated exposure control; mA and/or kV adjustment per patient size (includes targeted exams where dose is matched to clinical indication); or iterative reconstruction. Contrast material: OMNIPAQUE 350; Contrast volume: 99 ml; Contrast route: INTRAVENOUS (IV);? COMPARISON: 1. XR PORTABLE CHEST AP 02/04/2022 7:[address] ABDOMEN PELVIS WO 08/05/2018 7:02 PM FINDINGS: Pulmonary arteries: Normal. No pulmonary emboli. Aorta: Unremarkable. No aortic aneurysm. No aortic dissection. Lungs: Mild diffuse hazy ground-glass opacities throughout the lungs is likely related to the end expiratory phase of respiration. No focal consolidation is identified. Pleural spaces: Unremarkable. No pneumothorax. No pleural effusion. Heart: Unremarkable. No cardiomegaly. No pericardial effusion. Lymph nodes: Unremarkable. No enlarged lymph nodes. Bones/joints: Unremarkable. No acute fracture. Soft tissues: Unremarkable. IMPRESSION: Minimal hazy opacities throughout the lung mcdermott , which is likely due to the end expiratory phase of respiration. Mild pulmonary edema can also be considered. CT Angiography Abdomen With Contrast Exam date and time: 02/05/2022 6:06 PM Age: 51 years old Clinical indication: Other: Cough, SOB, vomiting, b/l hip pain TECHNIQUE: Imaging protocol: Computed tomographic angiography images of the abdomen with intravenous contrast material. 3D rendering (Not supervised by radiologist): MIP and/or 3D reconstructed images were created by the technologist. Radiation optimization: All CT scans at this facility use at least one of these dose optimization techniques: automated exposure control; mA and/or kV adjustment per patient size (includes targeted exams where dose is matched to clinical indication); or iterative reconstruction. Contrast material: OMNIPAQUE 350; Contrast volume: 99 ml; Contrast route: INTRAVENOUS (IV);? COMPARISON: 1. XR PORTABLE CHEST AP 02/04/2022 7:[address] ABDOMEN PELVIS WO 08/05/2018 7:02 PM FINDINGS: Aorta: No aortic aneurysm. No aortic dissection. Celiac trunk and mesenteric arteries: No occlusion or significant stenosis. Renal arteries: No occlusion or significant stenosis. Liver: Hepatic steatosis is present. Gallbladder and bile ducts: Normal. No calcified stones. No ductal dilation. Pancreas: Normal. No ductal dilation. Spleen: Spleen is mildly enlarged measuring 14.8 cm in craniocaudal dimension. Adrenals: Normal. No mass. Kidneys and ureters: A couple hypodense lesions are present in the kidneys bilaterally that are too small to characterize and likely represent cysts. Stomach and bowel: Unremarkable. No obstruction. No mucosal thickening. Lymph nodes: Unremarkable. No enlarged lymph nodes. Intraperitoneal space: Unremarkable. No free air. No significant fluid collection. Reproductive: The prostate gland is mildly enlarged causing mass effect on base the bladder. Bones/joints: Mild multilevel degenerative changes are present in the spine.? There are mild degenerative changes in the hips. Soft tissues: Unremarkable. IMPRESSION: 1. No acute abnormality of the abdomen and pelvis. 2. Hepatic steatosis. 3. Mild splenomegaly. 4. Prostatomegaly. Lab Data Lab results reviewed: Yes I reviewed the patient's lab results. Labs: 02/05/22 18:40 Blood Blood Culture - Pending 02/05/22 17:10 Blood Blood Culture - Pending 02/05/22 16:54 Urine - Reflex from Ua Urine Culture - Pending Laboratory Tests Range/Units 02/05/22 02/05/22 02/05/22 16:54 17:10 17:10 WBC (4.4-10.8) 10^3/uL RBC (4.36-5.78) 10^6/uL Hgb (13.5-17.5) g/dL Hct (40.0-50.0) % MCV (80-95) fL MCH (27.0-33.0) pg MCHC (32.0-36.0) % RDW (11.8-14.1) % Plt Count (130-400) 10^3/uL MPV (8.0-11.0) fL Immature Gran % Neutrophils % Lymphocytes % Monocytes % Eosinophils % Basophils % Nucleated RBC % % Absolute Neutrophils (1.2-6.7) 10^3/uL Absolute Lymphocytes (1.2-3.4) 10^3/uL Absolute Monocytes (0.1-0.8) 10^3/uL Absolute Eosinophils (0.0-0.7) 10^3/uL Absolute Basophils (0.0-0.2) 10^3/uL VBG Lactate (0.6-1.4) mmol/L 2.7 H* Sodium (136-145) mmol/L 137 Potassium (3.5-5.1) mmol/L 4.0 Chloride (98-107) mmol/L 100 Carbon Dioxide (21.0-32.0) mmol/L 24.3 Anion Gap (3-11) mmol/L 12.7 H BUN (7-18) mg/dL 20 H D Creatinine (0.70-1.30) mg/dL 0.9 Estimated GFR/1.73 m2 (mL/min/1.73m2) >= 60.00 Glucose (74-106) mg/dL 247 H Calcium (8.5-10.1) mg/dL 8.7 Magnesium (1.8-2.4) mg/dL 2.1 Total Bilirubin (0.2-1.0) mg/dL 0.6 AST (15-37) U/L 18 ALT (16-63) U/L 17 Alkaline Phosphatase (46-116) U/L 81 Troponin I (<or=60) ng/L < 50 Total Protein (6.4-8.2) g/dL 7.8 Albumin (3.4-5.0) g/dL 3.3 L Urine Color (Yellow) Yellow Urine Clarity (Clear) Cloudy Urine pH (5-8) 7.0 Ur Specific [place] (1.005-1.025) 1.025 Urine Protein (Negative) mg/dL 30 H Urine Ketones (Negative) mg/dL Negative Urine Blood (Negative) Small H Urine Nitrite (Negative) Positive H Urine Bilirubin (Negative) Negative Urine Urobilinogen (Up TO 0.2) EU/dL 1.0 H Ur Leukocyte Esterase (Negative) Small H Urine RBC (0-2) HPF Negative Urine WBC (0-5) HPF 5-10 Ur Epithelial Cells (Negative) HPF Negative Urine Crystals (Negative) HPF Negative Urine Bacteria (Negative) HPF Many Urine Casts (Negative) LPF Negative Urine Mucus (Negative) Negative Urine Other (Negative) Negative Ur Culture Indicated? Yes Urine Glucose (Negative) mg/dL >=1000 H COVID-19 Source SARS-CoV-2 (PCR) (Negative) Influenza Type A (PCR) (Negative) Influenza Type B (PCR) (Negative) RSV (PCR) (Negative) Range/Units 02/05/22 02/05/22 17:10 17:15 WBC (4.4-10.8) 10^3/uL 11.02 H RBC (4.36-5.78) 10^6/uL 4.80 Hgb (13.5-17.5) g/dL 14.6 Hct (40.0-50.0) % 42.8 MCV (80-95) fL 89.2 MCH (27.0-33.0) pg 30.4 MCHC (32.0-36.0) % 34.1 RDW (11.8-14.1) % 12.1 Plt Count (130-400) 10^3/uL 204 MPV (8.0-11.0) fL 10.2 Immature Gran % 0.2 Neutrophils % 82.6 Lymphocytes % 9.3 Monocytes % 7.7 Eosinophils % 0.0 Basophils % 0.2 Nucleated RBC % % 0 Absolute Neutrophils (1.2-6.7) 10^3/uL 9.10 H Absolute Lymphocytes (1.2-3.4) 10^3/uL 1.02 L Absolute Monocytes (0.1-0.8) 10^3/uL 0.85 H Absolute Eosinophils (0.0-0.7) 10^3/uL 0.00 Absolute Basophils (0.0-0.2) 10^3/uL 0.02 VBG Lactate (0.6-1.4) mmol/L Sodium (136-145) mmol/L Potassium (3.5-5.1) mmol/L Chloride (98-107) mmol/L Carbon Dioxide (21.0-32.0) mmol/L Anion Gap (3-11) mmol/L BUN (7-18) mg/dL Creatinine (0.70-1.30) mg/dL Estimated GFR/1.73 m2 (mL/min/1.73m2) Glucose (74-106) mg/dL Calcium (8.5-10.1) mg/dL Magnesium (1.8-2.4) mg/dL Total Bilirubin (0.2-1.0) mg/dL AST (15-37) U/L ALT (16-63) U/L Alkaline Phosphatase (46-116) U/L Troponin I (<or=60) ng/L Total Protein (6.4-8.2) g/dL Albumin (3.4-5.0) g/dL Urine Color (Yellow) Urine Clarity (Clear) Urine pH (5-8) Ur Specific [place] (1.005-1.025) Urine Protein (Negative) mg/dL Urine Ketones (Negative) mg/dL Urine Blood (Negative) Urine Nitrite (Negative) Urine Bilirubin (Negative) Urine Urobilinogen (Up TO 0.2) EU/dL Ur Leukocyte Esterase (Negative) Urine RBC (0-2) HPF Urine WBC (0-5) HPF Ur Epithelial Cells (Negative) HPF Urine Crystals (Negative) HPF Urine Bacteria (Negative) HPF Urine Casts (Negative) LPF Urine Mucus (Negative) Urine Other (Negative) Ur Culture Indicated? Urine Glucose (Negative) mg/dL COVID-19 Source Nasopharynx SARS-CoV-2 (PCR) (Negative) Negative Influenza Type A (PCR) (Negative) Negative Influenza Type B (PCR) (Negative) Negative RSV (PCR) (Negative) Negative HPI General Mode of arrival: ambulatory . Date/Time Provider Initiated Documentation: 02/05/22 16:48 . Limitations to Documentation: no limitations . Information obtained by: patient . HPI Narrative: Patient is a 51-year-old male with a history of obesity, diabetes, hypertension and depression who presents for cough, vomiting, shortness of breath, lower back and bilateral hip pain for the past 3 days. Patient states the symptoms first started with vomiting a few days ago. He states he has been had a cough with has been occasionally productive of white sputum. He states his vomitus has mainly been food or bile. He states he vomits every time he eats. He states for the past few days he has had right groin, right lower back and right hip pain. He states he was walking at home a couple days ago and slipped and fell onto his right hip and has had worsening pain since then. He states since this morning he now has worsening left-sided lower back and left hip pain. He denies any new injury. He states he has had a fever intermittently, T-max 100.3 yesterday. States his last dose of Tylenol or ibuprofen was yesterday. He admits to occasional headache. He denies any neck pain, chest pain, significant abdominal pain, diarrhea or urinary symptoms. He states he is fully vaccinated including a booster for COVID and denies any known exposure to coronavirus. Of note, patient was seen here yesterday for the same complaint and had negative Fluvid and unremarkable labs and chest and hip x-ray and was discharged home. Related Data Home Medications Medication Instructions Recorded Confirmed metformin 1,000 mg tablet 1,000 mg PO BID@0800,1700 05/02/13 02/05/22 (Glucophage) gabapentin 300 mg capsule 600 mg PO BID 09/22/13 02/05/22 albuterol sulfate 90 mcg/actuation 2 puff IH Q4H PRN gm 02/03/20 04/07/22 aerosol inhaler (Ventolin HFA) insulin detemir U-100 100 unit/mL 50 unit SC QHS ml 12/04/19 02/05/22 subcutaneous solution (Levemir U-100 Insulin) sertraline 50 mg tablet (Zoloft) 50 mg PO DAILY 12/04/19 02/05/22 terazosin 5 mg capsule 5 mg PO QHS 12/04/19 02/05/22 tramadol 50 mg tablet 50 mg PO Q6H PRN 12/04/19 02/05/22 valacyclovir 500 mg tablet 500 mg PO BID 12/04/19 02/05/22 amlodipine 5 mg tablet 10 mg PO DAILY tab 12/13/19 02/05/22 losartan 100 1 tab PO DAILY 12/13/19 02/05/22 mg-hydrochlorothiazide 25 mg tablet magnesium oxide 400 mg (241.3 mg 200 mg PO DAILY tab 12/13/19 02/05/22 magnesium) tablet ondansetron 4 mg disintegrating 4 mg PO Q8H PRN #10 tab 02/04/22 02/05/22 tablet Previous Rx's Medication Instructions Recorded ondansetron 4 mg disintegrating 4 mg PO Q8H PRN #10 tab 02/04/22 tablet Allergies Allergy/AdvReac Type Severity Reaction Status Date / Time lisinopril AdvReac Mild Unverified 02/05/22 16:45 General Stated Complaint: GenMedical KALIN: 3 Review of Systems All systems reviewed & are unremarkable except as noted in HPI and below Constitutional Constitutional: Reports as per HPI, Reports body ache(s), Denies chills, Denies excessive sweating, Denies fatigue and Reports fever(s) Eyes Eyes: Denies blurry vision ENT Ears, Nose, Mouth, and Throat: Denies dizziness, Denies sore throat and Denies throat swelling Cardiovascular Cardiovascular: Denies chest pain and Denies dyspnea Respiratory Respiratory: Denies cough and Denies dyspnea Gastrointestinal Gastrointestinal: Denies abdominal pain, Denies diarrhea and Denies vomiting Genitourinary Genitourinary: Denies hematuria and Denies dysuria Musculoskeletal Musculoskeletal: Reports back pain and Denies numbness Comments: b/l hip pain Integumentary/Breasts Skin/Breast: Denies lesions and Denies rash Neurologic Neurologic: Denies behavioral changes, Denies confusion, Denies dizziness, D enies localized weakness and Denies numbness Psychiatric Psychiatric: Denies behavioral changes, Denies confusion and Denies depression Endocrine Endocrine: Denies excessive sweating and Denies fatigue Hematologic/Lymphatic Hematologic/Lymphatic: Denies easy bruising and Denies lymphadenopathy Allergic/Immunologic Allergic/Immunologic: Denies throat swelling PFSH All Active Problems (Updated 02/07/22 @ 16:48 by Lizett Marmolejo MD) Bacteremia (Acute) Discharge planning issues (Acute) DVT prophylaxis (Acute) Herniation of intervertebral disc between L5 and S1 (Acute) Pain in both lower extremities (Acute) Type 2 diabetes mellitus (Chronic) Myalgia (Acute) Viral gastroenteritis (Acute) UTI (urinary tract infection) (Acute) Cough (Acute) Fever (Acute) High blood pressure (Chronic) Headache (Acute) Hyperglycemia (Acute) Viral illness (Acute) Contusion of hip, right (Acute) Acute pyelonephritis (Acute) Fever (Acute) Bilateral hip pain (Acute) Low back pain (Acute) Achilles rupture, left (Acute) Plantar fascial fibromatosis (Acute) Tendonitis, Achilles, right (Acute) Syncope (Chronic) Bronchial pneumonia (Acute) Sexual dysfunction (Acute) Cough (Acute) Preventative health care (Acute) Tinea pedis (Acute) Night sweats (Acute) Diabetic peripheral neuropathy (Acute) Neck pain, chronic (Acute) Diabetic retinopathy, background (Acute) Overweight (Acute) Herpes, genital (Acute) Depression (Chronic) Hypertension (Chronic) Subcutaneous mass of right foot (Acute) plantar aspect Medical History Diabetes Sleep apnea does not use device Surgical History H/O arthroscopic knee surgery History of nasal surgery Hx of arthroscopy of shoulder Hx of elbow surgery torn tendon Hx of wisdom tooth extraction Social History Smoking/Tobacco Use Status: Never Smoking risk assessment performed?: Yes Alcohol Intake: current Alcohol Intake frequency: holidays/special occasions only Alcohol type: beer Drug use: Never Substance use type: does not use Current gender identity: male Do you feel safe at home: Yes Do you feel safe in your relationship?: Yes Exam Const General: cooperative and in distress Orientation: alert, awake and oriented x3 HENMT Head: normal to inspection Ears: hearing grossly normal bilaterally and external ears normal General nose exam: external nose normal Face and sinus: normal facial exam Mouth: oral mucosae normal Throat: posterior oropharynx normal, uvula midline and no peritonsillar masses Eyes General: appearance normal, both eyes and all related structures Eyelids: eyelids normal Pupils: PERRL EOM: EOM intact bilaterally Neck Neck: normal visual inspection Lymphatic: no lymphadenopathy noted Chest Chest: normal inspection of the chest Resp Effort & Inspection: normal respiratory effort and able to speak in complete sentences Auscultation: clear to auscultation bilaterally Cardio Rate: regular rate Rhythm: regular rhythm GI Inspection: normal to inspection Palpation: soft, not firm, no guarding, no hepatosplenomegaly, no masses and nontender Auscultation: normal bowel sounds Back/Spine/Pelvis Back: no CVA tenderness Thoracic/Lumbar Spine: thoracic and lumbar spine normal to inspection, No thoracic spinal tenderness and No lumbar spinal tenderness Skin General skin exam: no rashes or lesions noted Neuro General: patient alert and patient awake Cognition: normal cognition Speech: speech normal Gait: normal gait Motor: muscle tone normal throughout Sensory Exam: no sensory deficits noted Extrem Other: Significant tenderness palpation to bilateral proximal thighs with light touch. Significant pain with range of motion in bilateral hips. No evidence of cellulitis to bilateral hips. Bilateral DP/PT pulses intact. Psych Appearance: grossly normal Mental Status: mental status grossly normal Speech and Movement: speech and movement normal Affect: normal affect Thought Process: normal Course Vital Signs Vital signs: Vital Signs Temperature 100.3 F H 02/05/22 16:35 Pulse 85 02/05/22 16:35 Respiratory Rate 23 02/05/22 16:35 Blood Pressure 193/86 H 02/05/22 16:35 Pulse Oximetry 100 02/05/22 16:35 Temperature 100.3 F H 02/05/22 16:35 Temperature Source Temporal Artery Scan 02/05/22 16:35 Pulse 85 02/05/22 16:35 Respiratory Rate 23 02/05/22 16:35 Respiratory Effort Non-Labored 02/05/22 16:42 Blood Pressure 193/86 H 02/05/22 16:35 Blood Pressure Position Supine 02/05/22 16:35 Pulse Oximetry 100 02/05/22 16:35 Oxygen Delivery Method Room Air 02/05/22 16:35 Oxygen Flow Rate 0 02/05/22 16:35 Pain Level 10 02/05/22 16:35 Lab/Test Results Lab/Test Results: 02/05/22 16:49 Blood Blood Culture - Pending 02/05/22 16:49 Blood Blood Culture - Pending
--- NOTE | 2022-02-05 17:00 | DI.CT_ITS ---
Exam(s) CT CHEST PE ABD PELVIS W EXAM: CT CHEST PE ABD PELVIS W CLINICAL HISTORY: cough, short of breath, vomiting, b/l hip pain. TECHNIQUE: Imaging Protocol: Axial CT angiography was performed with multi-slice acquisition and m ulti-planar and/or 3D reconstructions. CONTRAST MATERIAL: Intravenous: Omnipaque 350 Contrast volume:99 mL Oral: None COMPARISON: CT CT ABDOMEN PELVIS WO from 08/05/2018 CR,XR XR PORTABLE CHEST AP from 02/04/2022 FINDINGS: CHEST: PULMONARY ARTERIES: There are no intra-arterial filling defects to suggest the presence of acute pulm onary emboli. LUNGS: Mild diffuse hazy ground-glass opacities throughout the lung mcdermott is probably related to pha se of respiration. There are no confluent infiltrates. No ominous pulmonary nodules.. There are no pleural effusions. MEDIASTINUM: There is no hilar nor mediastinal adenopathy. Visualized thyroid unremarkable. CARDIAC: Heart size is normal. There is no pericardial effusion. There is no significant shift of t he interventricular septum.Caliber of the thoracic aorta is within normal limits. OSSEOUS: No significant osseous lesions.. ABDOMEN: There is no ascites. LIVER: There are no focal hepatic lesions nor dilatation of intrahepatic ducts. GALLBLADDER/BILIARY: No obvious gallbladder pathology. CBD is not dilated. PANCREAS: No evidence of pancreatic mass nor dilatation of the pancreatic duct. SPLEEN: Mild splenomegaly. No focal intrasplenic lesions. Splenic and portal veins are patent. ADRENALS: There are no significant adrenal masses. KIDNEYS:No cysts evident. No calculi nor hydronephrosis. No solid renal masses. Some relatively sym metrical perinephric streaking is unchanged from 2018. Ureters are not dilated. No obvious abnormal ity in the urinary bladder. ABDOMINAL AORTA: Abdominal aorta is not enlarged. LYMPH NODES: There are few slightly prominent portacaval lymph nodes which are unchanged from 2018. No increase in adenopathy. ABDOMINAL WALL/GI: No evidence of significant anterior abdominal wall hernia. No bowel obstruction. PELVIS: LYMPH NODES: There is no intrapelvic nor inguinal adenopathy. GI: No evidence of appendicitis.No evidence of sigmoid diverticulitis. URINARY BLADDER: No calculi nor masses evident REPRODUCTIVE: Mild prostate enlargement. Seminal vesicles unremarkable. OSSEOUS: No significant osseous lesions. Sacroiliac joints unremarkable. No fractures IMPRESSION: 1. No evidence of acute pulmonary emboli nor pulmonary infarction. 2. There are no pleural effusions.There is mild hazy opacities throughout both lung mcdermott which is p robably related to suboptimal inspiratory/air trapping. 3. Mild splenomegaly. 4. Mild prostate enlargement. 5. No ascites. RADIATION DOSE DELIVERED: 1,432.71mGy.cm Total DLP DATA REPOSITORY: All CT scans at this facility are submitted to the National Radiology Data Registry (NRDR) Dose Index Registry (DIR) with the [employer] (A[employer]). RADIATION OPTIMIZATION: All CT scans at this facility use at least one of these dose optimization te chniques: automated exposure control; mA and/or kV adjustment per patient size (includes targeted exa ms where dose is matched to clinical indication); or iterative reconstruction.
[2022-02-05 17:02] LABS: Bilirubin Negative (Negative); Blood Small (Negative); Clarity Cloudy (Clear); Glucose >=1000 mg/dL (Negative); Ketones Negative (Negative); Leukocyte Esterase Small (Negative); Nitrite Positive (Negative); Specific Gravity 1.025 (1.005-1.025)
[2022-02-05 17:09] LABS: Bacteria Many HPF (Negative); C & S Indicated? Yes; Casts Negative LPF (Negative); Crystals Negative HPF (Negative); Epithelial Cells Negative HPF (Negative); Mucus Negative (Negative); Other Cells Negative (Negative); RBC Negative HPF (0-2)
[2022-02-05 17:25] LABS: Abs Immature Grans 0.02 10^3/uL (0.0-0.06); Absolute Basophil Count 0.02 10^3/uL (0.0-0.2); Absolute Lymphocyte Count 1.02 10^3/uL (1.2-3.4); Absolute Monocyte Count 0.85 10^3/uL (0.1-0.8); Basophils % 0.2; HCT 42.8 % (40.0-50.0); HGB 14.6 g/dL (13.5-17.5); Immature Grans % 0.2; Lymphocytes % 9.3; MCH 30.4 pg (27.0-33.0); MCHC 34.1 % (32.0-36.0); MCV 89.2 fL (80-95); MPV 10.2 fL (8.0-11.0); Monocytes % 7.7; Neutrophils % 82.6; Nucleated RBC 0 %; Platelet Count 204 10^3/uL (130-400); RDW 12.1 % (11.8-14.1); WBC 11.02 10^3/uL (4.4-10.8)
[2022-02-05] MEDS: Normal Saline 1,000 ML 1000 ML IV ×2 (17:26→19:35)
[2022-02-05 17:27] LABS: Lactate 2.7 mmol/L (0.6-1.4)
[2022-02-05 17:30] VITALS: TEMP 38.5
[2022-02-05] MEDS: ACETAMINOPHEN 1,000 MG/100 ML BTL 400 MG IVPB (17:30)
[2022-02-05] MEDS: Ketorolac 30 MG/ML VIAL IVP (17:31)
[2022-02-05 17:42] LABS: ALT 17 U/L (16-63); AST 18 U/L (15-37); Albumin 3.3 g/dL (3.4-5.0); Alkaline Phosphatase 81 U/L (46-116); Anion Gap 12.7 mmol/L (3-11); BUN 20 mg/dL (7-18); Bilirubin, Total 0.6 mg/dL (0.2-1.0); CO2 24.3 mmol/L (21.0-32.0); CREATININE 0.9 mg/dL (0.70-1.30); Calcium 8.7 mg/dL (8.5-10.1); Chloride 100 mmol/L (98-107); Glucose 247 mg/dL (74-106); Magnesium 2.1 mg/dL (1.8-2.4); Sodium 137 mmol/L (136-145); Total Protein 7.8 g/dL (6.4-8.2); Troponin I < 50 ng/L (<or=60)
[2022-02-05] MEDS: Normal Saline Flush 10 ML SYR IVP ×2 (18:03→22:08)
[2022-02-05] MEDS: Omnipaque 350 MG/ML 100 ML BTL IJ (18:03)
[2022-02-05 18:06] LABS: COVID-19 PCR Negative (Negative); Influenza A PCR Negative (Negative); Influenza B PCR Negative (Negative); RSV PCR Negative (Negative)
[2022-02-05 18:07] LABS: Source Nasopharynx
--- NOTE | 2022-02-05 18:44 | DI.VRAD_ITS ---
PROCEDURE INFORMATION: Exam: CTA Chest With Contrast Exam date and time: 02/05/2022 6:06 PM Age: 51 years old Clinical indication: Other: Cough, SOB, vomiting, b/l hip pain TECHNIQUE: Imaging protocol: Computed tomographic angiography of the chest with contrast. 3D rendering (Not supervised by radiologist): MIP and/or 3D reconstructed images were created by the technologist. Radiation optimization: All CT scans at this facility use at least one of these dose optimization techniques: automated exposure control; mA and/or kV adjustment per patient size (includes targeted exams where dose is matched to clinical indication); or iterative reconstruction. Contrast material: OMNIPAQUE 350; Contrast volume: 99 ml; Contrast route: INTRAVENOUS (IV); COMPARISON: 1. XR PORTABLE CHEST AP 02/04/2022 7:[address] ABDOMEN PELVIS WO 08/05/2018 7:02 PM FINDINGS: Pulmonary arteries: Normal. No pulmonary emboli. Aorta: Unremarkable. No aortic aneurysm. No aortic dissection. Lungs: Mild diffuse hazy ground-glass opacities throughout the lungs is likely related to the end expiratory phase of respiration. No focal consolidation is identified. Pleural spaces: Unremarkable. No pneumothorax. No pleural effusion. Heart: Unremarkable. No cardiomegaly. No pericardial effusion. Lymph nodes: Unremarkable. No enlarged lymph nodes. Bones/joints: Unremarkable. No acute fracture. Soft tissues: Unremarkable. IMPRESSION: Minimal hazy opacities throughout the lung mcdermott , which is likely due to the end expiratory phase of respiration. Mild pulmonary edema can also be considered. PROCEDURE INFORMATION: Exam: CT Angiography Abdomen With Contrast Exam date and time: 02/05/2022 6:06 PM Age: 51 years old Clinical indication: Other: Cough, SOB, vomiting, b/l hip pain TECHNIQUE: Imaging protocol: Computed tomographic angiography images of the abdomen with intravenous contrast material. 3D rendering (Not supervised by radiologist): MIP and/or 3D reconstructed images were created by the technologist. Radiation optimization: All CT scans at this facility use at least one of these dose optimization techniques: automated exposure control; mA and/or kV adjustment per patient size (includes targeted exams where dose is matched to clinical indication); or iterative reconstruction. Contrast material: OMNIPAQUE 350; Contrast volume: 99 ml; Contrast route: INTRAVENOUS (IV); COMPARISON: 1. XR PORTABLE CHEST AP 02/04/2022 7:[address] ABDOMEN PELVIS WO 08/05/2018 7:02 PM FINDINGS: Aorta: No aortic aneurysm. No aortic dissection. Celiac trunk and mesenteric arteries: No occlusion or significant stenosis. Renal arteries: No occlusion or significant stenosis. Liver: Hepatic steatosis is present. Gallbladder and bile ducts: Normal. No calcified stones. No ductal dilation. Pancreas: Normal. No ductal dilation. Spleen: Spleen is mildly enlarged measuring 14.8 cm in craniocaudal dimension. Adrenals: Normal. No mass. Kidneys and ureters: A couple hypodense lesions are present in the kidneys bilaterally that are too small to characterize and likely represent cysts. Stomach and bowel: Unremarkable. No obstruction. No mucosal thickening. Lymph nodes: Unremarkable. No enlarged lymph nodes. Intraperitoneal space: Unremarkable. No free air. No significant fluid collection. Reproductive: The prostate gland is mildly enlarged causing mass effect on base the bladder. Bones/joints: Mild multilevel degenerative changes are present in the spine. There are mild degenerative changes in the hips. Soft tissues: Unremarkable. IMPRESSION: 1. No acute abnormality of the abdomen and pelvis. 2. Hepatic steatosis. 3. Mild splenomegaly. 4. Prostatomegaly. Dictated and Authenticated by: Morena Godfrey MD. Ordering:MARIA LUISA Iverson MD
[2022-02-05 19:30] LABS: BE (Venous) -1 mmol/L (-2-3); HCO3 (Venous) 23 mmol/L (23-28); pCO2 (Venous) 33 mmHg (41-51); pH (Venous) 7.44 (7.31-7.41); pO2 (Venous) 135 mmHg
[2022-02-05 19:32] LABS: O2 Sat (Venous) > 99 %
[2022-02-05] MEDS: HYDROmorphone 2 MG/ML VIAL 1 MG IVP (19:33)
[2022-02-05 19:34] LABS: TCO2 (Venous) 29 mmol/L (24-29)
[2022-02-05] MEDS: cefTRIAXone 1 GM/50 ML BAG IVPB (19:34)
--- NOTE | 2022-02-05 19:49 | HPE_ITS ---
Date of service: 02/05/22 Time of Service: 20:38 Assessment and Plan Assessment and plan (1) Viral gastroenteritis: Start date: 02/02/22 Status: Acute Assessment and plan: This is a 51-year-old gentleman who had an acute onset of viral appearing gastroenteritis which persisted for 4 days prior to admission. He has progressive symptoms of myalgias which were the main reason he was seen in the ED. Is mostly involving the lower extremities. He is having intermittent fever and appears to have an associated UTI but no evidence of pyelonephritis by exam or imaging. Patient is not tolerating pain well and is a diabetic with possible history of neuropathy on gabapentin. Patient GI symptoms are slowly improving though his myalgias are the main persisting symptoms along with intermittent fever. He was Covid and flu negative the day prior to admission. He will continue on clear fluid advance diet as tolerated and IV hydration for lactic acidosis. Follow-up lab in the morning. (2) UTI (urinary tract infection): Start date: 02/05/22 Status: Acute Assessment and plan: Patient has a positive urine with urine culture performed and Rocephin initiated. There is some questionable pacing in his lung mcdermott on chest x-ray and CT this should be covered with Rocephin as well. He did have a cough prior to admission but this is not a prominent part of his symptoms presently. Follow-up imaging and clinically. Adjust antibiotic therapy if urine culture positive for respiratory symptoms return indicating the need for broader antibiotic coverage for pneumonia. (3) Myalgia: Start date: 02/05/22 Status: Acute Assessment and plan: Patient has severe pain with muscle tenderness over lower extremities and pelvic area with sed rate and CRP to be checked consider steroid therapy if this appears to be viral induced myalgias or PMR. This is an unusual presentation for PMR. There is no evidence of synovitis associate with his probable viral infection. Continue to monitor and treat symptomatically. (4) Type 2 diabetes mellitus: Status: Chronic Assessment and plan: Glucometer checks with short acting insulin coverage while patient is hospitalized. Hold Metformin with lactic acidosis. Diabetic diet. History of Present Illness Narrative: Patient is a 51-year-old male with a history of obesity, diabetes, hypertension and depression who presents for cough, nausea and vomiting, shortness of breath for 4 days and lower back and bilateral hip pain for the past 2 days.? Patient states the symptoms first started with vomiting 4 days ago.? He states he has been had a cough with has been occasionally productive of white sputum.? He states his vomitus has mainly been food or bile.? He states he vomits every time he eats. He has missed work for the last 4 days because of this illness. He states for the past 2 days he has had right groin, right lower back and right hip pain.? He states he was walking at home a couple days ago and because of increasing weakness slipped and fell onto his right hip and has had worsening pain since that fall and has been seen in the ED the day prior to admission with imaging negative for acute fracture. He states since the morning of admission he has had worsening left sided lower back and left hip pain.? He denies any new injury. The patient states that the pain is mostly in his muscles and is very intense with any movement especially over his thighs. He describes the pain as 15 out of 10. He states he has had a fever intermittently, T-max 100.3 the day prior to admission.? Patient states his last dose of Tylenol or ibuprofen was the day prior to admission.? He admits to occasional headache.? He denies any neck pain, chest pain, significant abdominal pain, diarrhea or urinary symptoms.? He states he is fully vaccinated including a booster for COVID and denies any known exposure to coronavirus. Patient was seen in the ED the day prior to admission with similar complaint and had negative Fluvid and unremarkable labs and chest and hip x-ray and was discharged home. Patient temperature was 101.3 in the ED prior to admission. He was found to have a lactic acidosis and glucose elevated with a history of diabetes but only mildly elevated WBC and negative troponin. Chest x-ray and CT of the abdomen and pelvis were negative for acute findings except for questionable bases in the lung field without obvious consolidation. His urine was positive a urine culture was started with Rocephin IV given and to be continued. There was a question of pyelonephritis with the ED physician but CT scan did not appear to be pyelonephritis and he is not complaining of CVA area of pain but more hips and the lower extremities. Review of Systems Narrative: 13 point review of systems otherwise unrevealing or stable. Patient is not coping well with his acute illness and pain. [facility] All Active Problems (Updated 02/06/22 @ 09:30 by John Geronimo) Type 2 diabetes mellitus (Chronic) Myalgia (Acute) Viral gastroenteritis (Acute) UTI (urinary tract infection) (Acute) Cough (Acute) Fever (Acute) High blood pressure (Chronic) Headache (Acute) Hyperglycemia (Acute) Viral illness (Acute) Contusion of hip, right (Acute) Acute pyelonephritis (Acute) Fever (Acute) Bilateral hip pain (Acute) Low back pain (Acute) Achilles rupture, left (Acute) Plantar fascial fibromatosis (Acute) Tendonitis, Achilles, right (Acute) Syncope (Chronic) Bronchial pneumonia (Acute) Sexual dysfunction (Acute) Cough (Acute) Preventative health care (Acute) Tinea pedis (Acute) Night sweats (Acute) Diabetic peripheral neuropathy (Acute) Neck pain, chronic (Acute) Diabetic retinopathy, background (Acute) Overweight (Acute) Herpes, genital (Acute) Depression (Chronic) Hypertension (Chronic) Subcutaneous mass of right foot (Acute) plantar aspect Medical History Diabetes Sleep apnea does not use device Surgical History H/O arthroscopic knee surgery History of nasal surgery Hx of arthroscopy of shoulder Hx of elbow surgery torn tendon Hx of wisdom tooth extraction Social History Smoking/Tobacco Use Status: Never Smoking risk assessment performed?: Yes Alcohol Intake: current Alcohol Intake frequency: holidays/special occasions only Alcohol type: beer Drug use: Never Substance use type: does not use Current gender identity: male Do you feel safe at home: Yes Do you feel safe in your relationship?: Yes Meds Allergies and Home Medications Allergies Allergy/AdvReac Type Severity Reaction Status Date / Time lisinopril AdvReac Mild Unverified 02/05/22 16:45 Home Medications Medication Instructions Recorded Confirmed Type metformin 1,000 mg tablet 1,000 mg PO BID@0800,1700 05/02/13 02/05/22 History (Glucophage) gabapentin 300 mg capsule 600 mg PO BID 09/22/13 02/05/22 History albuterol sulfate 90 mcg/actuation 2 puff IH Q4H PRN gm 12/04/19 02/05/22 History aerosol inhaler (Ventolin HFA) insulin detemir U-100 100 unit/mL 50 unit SC QHS ml 12/04/19 02/05/22 History subcutaneous solution (Levemir U-100 Insulin) sertraline 50 mg tablet (Zoloft) 50 mg PO DAILY 12/04/19 02/05/22 History terazosin 5 mg capsule 5 mg PO QHS 12/04/19 02/05/22 History tramadol 50 mg tablet 50 mg PO Q6H PRN 12/04/19 02/05/22 History valacyclovir 500 mg tablet 500 mg PO BID 12/04/19 02/05/22 History amlodipine 5 mg tablet 10 mg PO DAILY tab 12/13/19 02/05/22 History losartan 100 1 tab PO DAILY 12/13/19 02/05/22 History mg-hydrochlorothiazide 25 mg tablet magnesium oxide 400 mg (241.3 mg 200 mg PO DAILY tab 12/13/19 02/05/22 History magnesium) tablet ondansetron 4 mg disintegrating 4 mg PO Q8H PRN #10 tab 02/04/22 02/05/22 Rx tablet Exam Narrative Exam Narrative: General: Patient appears appropriate for age, in moderate to severe distress with his complaints of pain in his lower extremities with flattened affect and becoming easily agitated. He is alert and oriented x3. HEENT: Normocephalic, eyes with pupils equal and reactive to light sy mmetrically, extraocular movement intact and sclera anicteric. Oropharynx with dry mucosa and fair dentition. Face does appear slightly puffy without pitting edema. There is flushing and erythema. Neck: Supple without JVD. Back: No CVA tenderness with slightly stooped posture. No tenderness palpation over the lumbar spine. Slightly tender over the SI joint areas bilaterally. No fluctuance. Lungs: Fair aeration and clear to auscultation and percussion. Heart: Regular rate and rhythm with no murmurs or gallops appreciated. Abdomen: Obese contour, soft and nontender to palpation with no palpable hepatosplenomegaly. Bowel sounds positive in all quadrants. Genitalia/rectal: Exam deferred. Extremities: Tender to palpation over the anterior. Of the hip as well as trochanteric areas and exquisitely tender with any movement of the patient's lower extremities especially flexion of the knees with increased pain over the thighs but no palpable fluctuance or swelling and no areas of erythema. No induration. Rotational movement of the hip is less tender when taking out of the movement of the thigh muscles. Peripheral pulses intact. No clubbing or cyanosis. Extremities without any tenderness to range of motion or palpation of muscles. Skin: Flushing of the face and upper body otherwise normal color, warm and dry. Normal turgor. Neuro: Cranial nerves II to XII grossly intact. No focal motor deficits. No Babinski's. No clonus though increased tone of lower extremities with patient guarding pain. Psych: Flattened affect with depressed mood with patient ruminating over physic al complaints and history of illness. No abnormal thought processes. Remote and recent memory intact. Results Imaging Imaging Studies: Exam: CTA Chest With Contrast Exam date and time: 02/05/2022 6:06 PM Age: 51 years old Clinical indication: Other: Cough, SOB, vomiting, b/l hip pain TECHNIQUE: Imaging protocol: Computed tomographic angiography of the chest with contrast. 3D rendering (Not supervised by radiologist): MIP and/or 3D reconstructed images were created by the technologist. Radiation optimization: All CT scans at this facility use at least one of these dose optimization techniques: automated exposure control; mA and/or kV adjustment per patient size (includes targeted exams where dose is matched to clinical indication); or iterative reconstruction. Contrast material: OMNIPAQUE 350; Contrast volume: 99 ml; Contrast route: INTRAVENOUS (IV);? COMPARISON: 1. XR PORTABLE CHEST AP 02/04/2022 7:[address] ABDOMEN PELVIS WO 08/05/2018 7:02 PM FINDINGS: Pulmonary arteries: Normal. No pulmonary emboli. Aorta: Unremarkable. No aortic aneurysm. No aortic dissection. Lungs: Mild diffuse hazy ground-glass opacities throughout the lungs is likely related to the end expiratory phase of respiration. No focal consolidation is identified. Pleural spaces: Unremarkable. No pneumothorax. No pleural effusion. Heart: Unremarkable. No cardiomegaly. No pericardial effusion. Lymph nodes: Unremarkable. No enlarged lymph nodes. Bones/joints: Unremarkable. No acute fracture. Soft tissues: Unremarkable. IMPRESSION: Minimal hazy opacities throughout the lung mcdermott , which is likely due to the end expiratory phase of respiration. Mild pulmonary edema can also be considered. PROCEDURE INFORMATION: Exam: CT Angiography Abdomen With Contrast Exam date and time: 02/05/2022 6:06 PM Age: 51 years old Clinical indication: Other: Cough, SOB, vomiting, b/l hip pain TECHNIQUE: Imaging protocol: Computed tomographic angiography images of the abdomen with intravenous contrast material. 3D rendering (Not supervised by radiologist): MIP and/or 3D reconstructed images were created by the technologist. Radiation optimization: All CT scans at this facility use at least one of these dose optimization techniques: automated exposure control; mA and/or kV adjustment per patient size (includes targeted exams where dose is matched to clinical indication); or iterative reconstruction. Contrast material: OMNIPAQUE 350; Contrast volume: 99 ml; Contrast route: INTRAVENOUS (IV);? COMPARISON: 1. XR PORTABLE CHEST AP 02/04/2022 7:[address] ABDOMEN PELVIS WO 08/05/2018 7:02 PM FINDINGS: Aorta: No aortic aneurysm. No aortic dissection. Celiac trunk and mesenteric arteries: No occlusion or significant stenosis. Renal arteries: No occlusion or significant stenosis. Liver: Hepatic steatosis is present. Gallbladder and bile ducts: Normal. No calcified stones. No ductal dilation. Pancreas: Normal. No ductal dilation. Spleen: Spleen is mildly enlarged measuring 14.8 cm in craniocaudal dimension. Adrenals: Normal. No mass. Kidneys and ureters: A couple hypodense lesions are present in the kidneys bilaterally that are too small to characterize and likely represent cysts. Stomach and bowel: Unremarkable. No obstruction. No mucosal thickening. Lymph nodes: Unremarkable. No enlarged lymph nodes. Intraperitoneal space: Unremarkable. No free air. No significant fluid collection. Reproductive: The prostate gland is mildly enlarged causing mass effect on base the bladder. Bones/joints: Mild multilevel degenerative changes are present in the spine.? There are mild degenerative changes in the hips. Soft tissues: Unremarkable. IMPRESSION: 1. No acute abnormality of the abdomen and pelvis. 2. Hepatic steatosis. 3. Mild splenomegaly. 4. Prostatomegaly. Dictated and Authenticated by: Morena Godfrey MD. EXAM:? XR HIP RT COMPLETE ? AP PELVIS CLINICAL HISTORY: ? fall, pain. ? TECHNIQUE:? 2D digital imaging was performed. COMPARISON:? CT CT ABDOMEN ? PELVIS WO from 08/05/2018 FINDINGS: 3 views There is no evidence of obvious pelvic nor hip fracture.? Mild degenerative changes are seen in the hips. There is an amorphous type calcifications seen above the greater trochanter of the right hip which measures approximately 9 x 7 millimeters, not having typical appearance of a fracture fragment. IMPRESSION: 9 x 7 millimeter osteophytic density seen above the greater trochanter of the right hip.? This does not have the typical appearance of a fracture fragment.? Indeed, it was also evident on prior CT scan of the abdomen performed 2018. Labs Result diagrams: 02/06/22 05:55 02/06/22 05:55 Labs: Laboratory Results - last 24 hr 02/05/22 02/05/22 02/05/22 16:54 17:10 17:10 WBC RBC Hgb Hct MCV MCH MCHC RDW Plt Count MPV Immature Gran % Neutrophils % Lymphocytes % Monocytes % Eosinophils % Basophils % Nucleated RBC % Absolute Neutrophils Absolute Lymphocytes Absolute Monocytes Absolute Eosinophils Absolute Basophils VBG pH VBG pCO2 VBG pO2 VBG HCO3 VBG Total CO2 VBG O2 Saturation VBG Base Excess VBG Lactate 2.7 H* Sodium 137 Potassium 4.0 Chloride 100 Carbon Dioxide 24.3 Anion Gap 12.7 H BUN 20 H D Creatinine 0.9 Estimated GFR/1.73 m2 >= 60.00 Glucose 247 H Calcium 8.7 Magnesium 2.1 Total Bilirubin 0.6 AST 18 ALT 17 Alkaline Phosphatase 81 Troponin I < 50 Total Protein 7.8 Albumin 3.3 L Urine Color Yellow Urine Clarity Cloudy Urine pH 7.0 Ur Specific [place] 1.025 Urine Protein 30 H Urine Ketones Negative Urine Blood Small H Urine Nitrite Positive H Urine Bilirubin Negative Urine Urobilinogen 1.0 H Ur Leukocyte Esterase Small H Urine RBC Negative Urine WBC 5-10 Ur Epithelial Cells Negative Urine Crystals Negative Urine Bacteria Many Urine Casts Negative Urine Mucus Negative Urine Other Negative Ur Culture Indicated? Yes Urine Glucose >=1000 H COVID-19 Source SARS-CoV-2 (PCR) Influenza Type A (PCR) Influenza Type B (PCR) RSV (PCR) 02/05/22 02/05/22 02/05/22 17:10 17:15 19:25 WBC 11.02 H RBC 4.80 Hgb 14.6 Hct 42.8 MCV 89.2 MCH 30.4 MCHC 34.1 RDW 12.1 Plt Count 204 MPV 10.2 Immature Gran % 0.2 Neutrophils % 82.6 Lymphocytes % 9.3 Monocytes % 7.7 Eosinophils % 0.0 Basophils % 0.2 Nucleated RBC % 0 Absolute Neutrophils 9.10 H Absolute Lymphocytes 1.02 L Absolute Monocytes 0.85 H Absolute Eosinophils 0.00 Absolute Basophils 0.02 VBG pH 7.44 H VBG pCO2 33 L VBG pO2 135 VBG HCO3 23 VBG Total CO2 29 VBG O2 Saturation > 99 VBG Base Excess -1 VBG Lactate Sodium Potassium Chloride Carbon Dioxide Anion Gap BUN Creatinine Estimated GFR/1.73 m2 Glucose Calcium Magnesium Total Bilirubin AST ALT Alkaline Phosphatase Troponin I Total Protein Albumin Urine Color Urine Clarity Urine pH Ur Specific [place] Urine Protein Urine Ketones Urine Blood Urine Nitrite Urine Bilirubin Urine Urobilinogen Ur Leukocyte Esterase Urine RBC Urine WBC Ur Epithelial Cells Urine Crystals Urine Bacteria Urine Casts Urine Mucus Urine Other Ur Culture Indicated? Urine Glucose COVID-19 Source Nasopharynx SARS-CoV-2 (PCR) Negative Influenza Type A (PCR) Negative Influenza Type B (PCR) Negative RSV (PCR) Negative Last Vital Signs Temp 38.5 C H 02/05/22 17:30 Pulse 85 02/05/22 16:35 Resp 23 02/05/22 16:45 BP 193/86 H 02/05/22 16:35 Pulse Ox 100 02/05/22 16:35
[2022-02-05 21:14] VITALS: BP 150/88; PULSE 71; RESP 18; TEMP 36.1; O2SAT 98
[2022-02-05] MEDS: traMADol 50 MG TAB PO (22:07)
[2022-02-05] MEDS: Enoxaparin 40 MG/0.4 ML SYR SC (22:08)
[2022-02-05] MEDS: Normal Saline 1,000 ML 125 ML IV (22:08)
[2022-02-05] MEDS: Acetaminophen 325 MG TAB 650 MG PO (23:56)
[2022-02-06] VITALS (7 sets, daily range): BP systolic 115–143; BP diastolic 71–95; PULSE 61–79; RESP 17–18; TEMP 35.7–37.1; O2SAT 95–98
--- NOTE | 2022-02-06 | DI.MRI_ITS ---
Exam(s) MR LUMBAR SPINE WO EXAM: MR LUMBAR SPINE WO CLINICAL HISTORY: lower back pain, BLE pain (?radiculopathy). TECHNIQUE: Multiplanar multisequence MRI of the Lumbar spine was performed. COMPARISON: CT CT ABDOMEN PELVIS WO from 08/05/[address] CHEST PE ABD PELVIS W from 02/05/2022 FINDINGS: There are no plain films of the lumbar spine available time this MRI interpretation. Therefore 5 lum bar vertebrae are presumed. Conus medullaris is at normal level. There is no evidence of conus mass nor subjacent clumping of in trathecal nerve roots to suggest arachnoiditis. The distal thecal sac appears unremarkable.There is no evidence of Tarlov intrasacral cysts nor other significant findings within the sacral canal Bones:There are no fractures nor ominous osseous lesions in the lumbar vertebral bodies and visualize d sacrum. With respect to the individual levels... T12-L1: Unremarkable L1-2: Normal disc height and signal. No disc herniation nor central canal stenosis.No foraminal steno sis L2-3: Normal disc height. No disc herniation nor central canal stenosis.No foraminal stenosis.No face t arthropathy. L3-4: Normal disc height. No disc herniation or central canal stenosis.No foraminal stenosis.No face t arthropathy. L4-5: Normal disc height and signal. No disc herniation or central spinal canal stenosis. No forami nal stenosis. No significant facet arthropathy. L5-S1: Normal disc height. However, there is a central-right paracentral disc protrusion extends pos teriorly 4 millimeters and is approximately 1.2 cm wide. There is some associated posterior bony rid ging exiting right neural foramen. The disc bulge here contacts the thecal sac but without prominent compression. It extends into the exiting right neural foramen. There is mild right-sided foraminal stenosis. No foraminal stenosis on the opposite-left side. Mild right-sided facet degenerative tye nges. Soft tissues: paraspinal soft tissues appear unremarkable. IMPRESSION: 1. At L5-S1 level there is central-right paracentral protrusion as described above. There is no cent ral canal stenosis. There is mild right-sided foraminal stenosis at this level. Exiting left neural foramen is nicely patent. 2. Other disc spaces appear unremarkable the lumbosacral spinal column. 3. There is no significant facet arthropathy evident. No significant osseous lesions. DATA REPOSITORY:
--- NOTE | 2022-02-06 | DI.RAD_ITS ---
Exam(s) XR HIP LT COMPLETE AP PELVIS EXAM: XR HIP LT COMPLETE AP PELVIS CLINICAL HISTORY: B hip pain. TECHNIQUE: 2D digital imaging was performed. COMPARISON: CR XR HIP RT COMPLETE AP PELVIS from 02/04/2022 FINDINGS: Four views There is no evidence of pelvic nor hip fracture. Additional views of the left hip reveal no osteophy nancy joint space narrowing. Bone density normal. No osseous. IMPRESSION: DATA REPOSITORY: RADIATION DOSE DELIVERED:
[2022-02-06] MEDS: HYDROmorphone 2 MG/ML SYR (02:53)
[2022-02-06] MEDS: Normal Saline 1,000 ML 125 ML IV (05:41)
[2022-02-06 06:14] LABS: Abs Immature Grans 0.05 10^3/uL (0.0-0.06); Absolute Basophil Count 0.01 10^3/uL (0.0-0.2); Absolute Eosinophil Count 0.01 10^3/uL (0.0-0.7); Absolute Lymphocyte Count 1.46 10^3/uL (1.2-3.4); Absolute Neutrophil Count 7.36 10^3/uL (1.2-6.7); Basophils % 0.1; Eosinophils % 0.1; HCT 34.6 % (40.0-50.0); HGB 11.5 g/dL (13.5-17.5); Immature Grans % 0.5; Lymphocytes % 14.6; MCH 30.6 pg (27.0-33.0); MCHC 33.2 % (32.0-36.0); Neutrophils % 73.7; Nucleated RBC 0 %; Platelet Count 161 10^3/uL (130-400); RBC 3.76 10^6/uL (4.36-5.78); RDW 12.5 % (11.8-14.1); RDW-SD 42.5 fL; WBC 9.99 10^3/uL (4.4-10.8)
[2022-02-06 06:29] LABS: ALT 11 U/L (16-63); AST 10 U/L (15-37); Albumin 2.5 g/dL (3.4-5.0); Alkaline Phosphatase 55 U/L (46-116); BUN 21 mg/dL (7-18); Bilirubin, Total 0.5 mg/dL (0.2-1.0); CREATININE 1.1 mg/dL (0.70-1.30); Calcium 7.4 mg/dL (8.5-10.1); Chloride 105 mmol/L (98-107); Glucose 261 mg/dL (74-106); Potassium 4.2 mmol/L (3.5-5.1); Sodium 136 mmol/L (136-145); Total Protein 5.9 g/dL (6.4-8.2)
[2022-02-06] MEDS: Magnesium Oxide 400 MG TAB 200 MG PO (08:02)
[2022-02-06] MEDS: valACYclovir 500 MG TAB PO ×2 (08:02→19:32)
[2022-02-06] MEDS: Sertraline 50 MG TAB PO (08:03)
[2022-02-06] MEDS: amLODIPine 5 MG TAB 10 MG PO (08:03)
[2022-02-06] MEDS: traMADol 50 MG TAB PO ×2 (08:03→16:47)
[2022-02-06] MEDS: Gabapentin 300 MG CAP 600 MG PO ×2 (08:04→20:07)
[2022-02-06] MEDS: Losartan 50 MG TAB 100 MG PO (08:04)
[2022-02-06] MEDS: Normal Saline Flush 10 ML SYR IVP (08:04)
[2022-02-06] MEDS: Insulin Aspart 300 UNITS/3 ML PEN SC ×4 (08:07→20:59)
[2022-02-06 08:33] LABS: Lactate 1.3 mmol/L (0.6-1.4)
[2022-02-06 08:34] LABS: ESR 20 mm/hr (0-15)
[2022-02-06 08:50] LABS: C-Reactive Protein 15.25 mg/dL (0.0-0.3); Creatine Kinase 78 U/L (39-308)
[2022-02-06 09:00] LABS: TSH (W/Ref FT4) 2.44 uIU/mL (0.36-3.74)
[2022-02-06 09:09] LABS: Procalcitonin 0.3 ng/mL
--- NOTE | 2022-02-06 09:17 | INITIAL_ITS ---
- If Service Date Differs Date of service: 02/06/22 Time of Service: 09:17 Care Management Initial Assess REASON FOR HOSPITALIZATION:: UTI, Myalgias, fever, lactic acidosis PAST MEDICAL HISTORY/PAST SURGICAL HISTORY:: All Active Problems . Cough (Acute). Fever (Acute). High blood pressure (Chronic). Headache (Acute). Hyperglycemia (Acute). Viral illness (Acute). Contusion of hip, right (Acute). Acute pyelonephritis (Acute). Fever (Acute). Bilateral hip pain (Acute). Low back pain (Acute). Achilles rupture, left (Acute). Plantar fascial fibromatosis (Acute). Tendonitis, Achilles, right (Acute). Syncope (Chronic). Bronchial pneumonia (Acute). Sexual dysfunction (Acute). Cough (Acute). Preventative health care (Acute). Tinea pedis (Acute). Night sweats (Acute). Diabetic peripheral n europathy (Acute). Neck pain, chronic (Acute). Diabetic retinopathy, background (Acute). Overweight (Acute). Herpes, genital (Acute). Depression (Chronic). Hypertension (Chronic). Subcutaneous mass of right foot (Acute). plantar aspect. Medical History . Diabetes. Sleep apnea. does not use device. Surgical History . H/O arthroscopic knee surgery. History of nasal surgery. Hx of arthroscopy of shoulder. Hx of elbow surgery. torn tendon. Hx of wisdom tooth extraction PREVIOUS FUNCTIONAL STATUS/SOCIAL/FAMILY SUPPORTS:: Lino lives in [place] with his Calli. He works at [employer] and is independent at baseline. CURRENT FUNCTIONAL STATUS:: Lino was lying in bed when CM met with him. He was alert, oriented and easy to engage in conversation. He is visiting with his . His pain is an 8 on 0-10 scale, RN aware and gave Dilaudid, followed by PO tylenol. ADVANCE DIRECTIVES:: Pt completed appointment of [facility] form today. [facility] is Call[facility], no alt. agent per pt request. No Adv. Directives, forms given to patient. Has patient been provided with info about the portal/API?: Yes Did the patient sign up for the portal?: No CODE STATUS:: Full Code INSURANCE COVERAGE / FINANCIAL ISSUES:: BC ANT. BC BS CURRENT HOME/COMMUNITY SERVICES/EQUIPMENT:: None PRIMARY CARE PHYSICIAN:: Jerry Ibrahim POTENTIAL DISCHARGE NEEDS:: Follow up appointments PATIENT/FAMILY EDUCATION NEEDS:: Review discharge instructions, limitations, medications and plan to follow up with community providers. ask me three. TRANSPORTATION:: via private vehicle with . PLAN:: Lino requires admission for close monitoring, IV abx and further medical work up. Anticipate, Lino will discharge home via private vehicle with when medically cleared by provider. Anticipate he will need follow up appointments with his PCP and urology. CM will continue to support discharge planning needs.
[2022-02-06] MEDS: Acetaminophen 500 MG TAB 1000 MG PO ×3 (09:54→20:59)
[2022-02-06] MEDS: Ondansetron 4 MG TAB PO (09:57)
[2022-02-06] MEDS: Docusate Sodium 100 MG CAP PO ×2 (11:03→21:06)
[2022-02-06] MEDS: Polyethylene Glycol 3350 17 GM PACKET PO (11:03)
[2022-02-06] MEDS: HYDROmorphone 2 MG/ML SYR 0.5 MG IVP (12:44)
--- NOTE | 2022-02-06 12:56 | IN_ITS ---
PT Notes Visit Reasons: UTI, Myalgias, Fever, Lactic acidosis Physical Therapy Inpatient Initial Evaluation Date: 02/06/22 Referring Doctor: John Wing MD PT Orders: PT CONSULT: Eval and treat Precautions: Fall. Standard. Patient Profile/Admitting Diagnosis: Lino is a 51 yo male that presented to the ER the morning of 02/04/22 for generalized fatigue, nausea, vomiting, and a dry cough for the last several days. He was discharged home then returned back to the ER the following afternoon for same complaint. He had a fall on Wednesday landing on his right hip hard. He is having pain in bilateral anterior thighs and lateral hips, more so on right. Ovverall not having back pain. Lumbar MRI this morning showed L5-S1 level there is central-right paracentral protrusion as described above.? There is no central canal stenosis.? There is mild right-sided foraminal stenosis at this level.? Exiting left neural foramen is nicely patent. PMHX: See EMR Social History/Home Situation: Lives with spouse in single level home, ramp to enter. Independent at baseline without AD. Works at [employer]. Equipment Owned/DME: Wheelchair, walker, commode Subjective: Cleared by nursing to see patient and patient is agreeable to PT. Patient is resting in bed at time of consult and had just finished lunch. He is connected to IV. Objective: General Observation: Resting in bed, pain with movement Mental Status: A&O x3 Pain: 6/10 thigh pain at rest, 10/10 with activity ROM: Right Upper Extremity: Shoulder Flexion WFL. Shoulder abduction WFL. Elbow flexion WFL. Wrist flexion WFL. Opening and closing of hand WFL. Left Upper Extremity: Shoulder Flexion WFL. Shoulder abduction WFL. Elbow flexion WFL. Wrist flexion WFL. Opening and closing of hand WFL. Right Lower Extremity: Hip flexion WFL. Hip abduction WFL. Knee flexion WFL. Ankle dorsiflexion WFL. Ankle plantarflexion WFL. Left Lower Extremity: Hip flexion WFL. Hip abduction WFL. Knee flexion WFL. Ankle dorsiflexion WFL. Ankle plantarflexion WFL. Strength: Right Upper Extremity: Shoulder flexors 5/5. Shoulder abductors 5/5. Elbow flexors 5/5. Elbow extensors 4+/5. Open End Spinning Operator strong. Left Upper Extremity: Shoulder flexors 5-/5. Shoulder abductors 5/5. Elbow flexors 5/5. Elbow extensors 4+/5. Open End Spinning Operator strong. Right Lower Extremity: Hip flexors Not assessed. Knee flexors 5/5. Knee extensors 4+/5 and pain. Ankle dorsiflexors 5/5. Left Lower Extremity: Hip flexors Not assessed. Knee flexors 5/5. Knee extensors 4+/5 and pain. Ankle dorsiflexors 5/5. Sensation: Intact as to pain and pressure on bilateral lower extremities. Bed Mobility/Transfers: Supine to sit: SBA Sit to supine: Min A with legs Sit to stand: CGA Stand to sit: CGA Gait: Ambulated to HOB of with left side step/shuffle using FWW Balance: Static Sitting: Normal Dynamic Sitting: Normal Static Standing: Fair Dynamic Standing: Poor Special Tests: Mobility Limitations Standardized Measure [facility] AM-PAC 6 clicks Basic Mobility Inpatient Short Form: Raw Score: 9 CMS Score: 81% Informed Consent/Education: Patient instructed in purpose of PT consult and plan of care. Assessment: Patient presents with clinical signs and symptoms consistent with current/ad mitting diagnoses that have resulted to mobility limitations, gait instability, generalized weakness, and impairment of motor control as demonstrated by the following impairment level findings: 1. Decreased strength to proximal LE major muscle groups 2. Impaired standing balance 3. Impaired activity tolerance 4. Limitation of joint range of motion in hip flexors, knee extension Impairments are contributing to the following functional limitations: 1. Dependent bed mobility skills 2. Increased dependence with transfers 3. Inability to safely ambulate without assistive device and physical assistance 4. Increase completion time for mobility ADL performance 5. Increased fall risk 6. Inability to negotiate steps alone safely Patient is assessed as a Low complexity based on the following: History: 51 year old male with impairment level findings, functional limitations, and past medical history as indicated above Examination: Demonstrable impairment in strength, balance, and mobility level w ith underlying impairments and functional limitations as documented above Presentation: Stable Decision Making: Low complexity Lino is not at his baseline of functional mobility. Very slow to perform transfers and pain in bilateral quads with any activation or stretch of them. He needs assist return to bed. Was able to stand with great effort, but has notable pain. L5-S1 level there is central-right paracentral protrusion on MRI does not correlate with his leg pain. Instructed in light bed exercises. Goals: Goals x1 week 1. Supine-Sit: independent 2. Sit-Supine: independent 3. Sit-Stand: independent 4. Stand-Sit: independent 5. Bed-Chair: independent 6. Chair-Bed: independent 7. Independent gait on level surface with use of least restrictive device for at least 300 feet without report of pain nor dyspnea 8. Independent stair negotiation while holding onto bilateral rails for at least 10 steps without report of pain nor dyspnea 9. Independent with home exercise program 10. Good static and dynamic standing balance/tolerance Plan of Care/Treatment Plan: 1-2x/day, 7 days/week x 1 week. Plan of care has been reviewed with the CASE MANAGER SPECIALIST providing the service under Physical Therapy direction. Initiate Physical Therapy intervention for strengthening, bed mobility, transfers, gait, stairs, balance training, and use of assistive device. Discharge Plan DISCHARGE RECOMMENDATIONS: Patient not at baseline of mobility, will monitor closely, not safe to return home in current state. TREATMENT CODE/TIME: 13:15-13:48 (33 minutes), [id number], [id number] Thank you for the opportunity to participate in the care of this patient. Hien Babin, PT, DPT, OCS [facility] [place], [place]
--- NOTE | 2022-02-06 14:46 | W.INDIABCONS ---
Date of service: 02/06/22 Time of Service: 14:46 Diabetes Inpatient Consult Reason for Visit: dm DESCRIPTION/ASSESSMENT: 51 year old male admitted with viral gastroenteritis, UTI with hx of DM2, obesity. Most recent Aid 7.7% (07/17/21) indicating mildly elevated blood sugars. Home MD meds: 50 units detrimir HS, 1000 mg metformin BID. Attempted to visit today and provide diabetes education/support. Not available. Will try again on Wednesday if still admitted. Following diabetic diet with adequate intake. BMI indicates obesity, stable. Not at nutritional risk. Time Spent in Nutritional Counseling and Treatment: 0
[2022-02-06] MEDS: cefTRIAXone 1 GM/50 ML BAG IVPB (17:14)
--- NOTE | 2022-02-06 17:54 | PGE_ITS ---
Date of Service Date of service: 02/06/22 Time of Service: 17:54 Assessment and Plan Assessment and plan (1) Pain in both lower extremities: Status: Acute Assessment and plan: Not matching the picture of where you would expect pain from a herniation at that level, however, quite significant. I am concerned about elevated inflammatory markers, though these could be elevated due to his UTI rather than the pain. Will schedule toradol and add prednisone in addition to increasing gabapentin. Tick/lyme studies pending. Ceftriaxone would at least be partially treating Lyme disease. CPK ok. CRP elevated. Checking B12. Continue PT. Obtain venous dopplers BLEs, though I doubt a VTE. The patient is clarifying for me whether he has a family h/o autoimmune disease. CPK is nml. (2) UTI (urinary tract infection): Status: Acute Assessment and plan: Due to Staph Aureus, present on admission. Blood cultures are pending. Will add vancomycin until more information is available about sensitivities. Given enlarged prostate, monitor bladder scans. (3) Type 2 diabetes mellitus: Status: Chronic Assessment and plan: Continue home basal bolus insulin (4) Herniation of intervertebral disc between L5 and S1: Status: Acute Assessment and plan: Will review images with [facility] [place] spine. No evidence of Cauda equina clinically. Continue working with PT. Monitor bladder scans. (5) DVT prophylaxis: Status: Acute Assessment and plan: enoxaparin SC (6) Discharge planning issues: Status: Acute Assessment and plan: Full code Admit to inpatient status Subjective Subjective Interval history since last seen: Continues to report BLE - anterior and lateral thigh pain, R>L, with hypersensitivity to touch. States that the pain started in right groin and got worse on the right after the fall and appeared the day after the fall on the left and he described it as stiffness on the left. Lower back hurts too. Noticed dark urine and is concerned about it. Denies dizziness, chest pain, shortness of breath, nausea. No abdominal pain. Appetite poor. Describes tick bites last year. Able to work with PT. Current pain management is not sufficient. Exam Narrative Exam Narrative: General: Anxious Obese male, A&Ox3, appears uncomfortable HEENT: EOMI, MMM Heart: RRR, no m/r/g Lungs: CTAB Abdomen: soft, nontender, nondistended Extremities: no edema; Bilateral anterior thigh tenderness to even mild touch Objective Last Vital Signs Temp 36.5 C 02/06/22 15:53 Pulse 79 02/06/22 15:53 Resp 18 02/06/22 15:53 BP 122/71 02/06/22 15:53 Pulse Ox 95 02/06/22 15:53 Laboratory Results - last 24 hr 02/05/22 02/05/22 02/06/22 17:15 19:25 05:55 WBC RBC Hgb Hct MCV MCH MCHC RDW Plt Count MPV Immature Gran % Neutrophils % Lymphocytes % Monocytes % Eosinophils % Basophils % Nucleated RBC % Absolute Neutrophils Absolute Lymphocytes Absolute Monocytes Absolute Eosinophils Absolute Basophils ESR VBG pH 7.44 H VBG pCO2 33 L VBG pO2 135 VBG HCO3 23 VBG Total CO2 29 VBG O2 Saturation > 99 VBG Base Excess -1 VBG Lactate Sodium 136 Potassium 4.2 Chloride 105 Carbon Dioxide 25.0 Anion Gap 6.0 BUN 21 H Creatinine 1.1 Estimated GFR/1.73 m2 >= 60.00 Glucose 261 H Calcium 7.4 L Total Bilirubin 0.5 AST 10 L ALT 11 L Alkaline Phosphatase 55 Creatine Kinase C-Reactive Protein Total Protein 5.9 L Albumin 2.5 L Procalcitonin TSH COVID-19 Source Nasopharynx SARS-CoV-2 (PCR) Negative Influenza Type A (PCR) Negative Influenza Type B (PCR) Negative RSV (PCR) Negative 02/06/22 02/06/22 02/06/22 05:55 08:25 08:25 WBC 9.99 RBC 3.76 L Hgb 11.5 L D Hct 34.6 L MCV 92.0 MCH 30.6 MCHC 33.2 RDW 12.5 Plt Count 161 MPV 10.0 Immature Gran % 0.5 Neutrophils % 73.7 Lymphocytes % 14.6 Monocytes % 11.0 Eosinophils % 0.1 Basophils % 0.1 Nucleated RBC % 0 Absolute Neutrophils 7.36 H Absolute Lymphocytes 1.46 Absolute Monocytes 1.10 H Absolute Eosinophils 0.01 Absolute Basophils 0.01 ESR VBG pH VBG pCO2 VBG pO2 VBG HCO3 VBG Total CO2 VBG O2 Saturation VBG Base Excess VBG Lactate 1.3 Sodium Potassium Chloride Carbon Dioxide Anion Gap BUN Creatinine Estimated GFR/1.73 m2 Glucose Calcium Total Bilirubin AST ALT Alkaline Phosphatase Creatine Kinase 78 C-Reactive Protein 15.25 H Total Protein Albumin Procalcitonin 0.3 TSH COVID-19 Source SARS-CoV-2 (PCR) Influenza Type A (PCR) Influenza Type B (PCR) RSV (PCR) 02/06/22 02/06/22 08:25 08:25 WBC RBC Hgb Hct MCV MCH MCHC RDW Plt Count MPV Immature Gran % Neutrophils % Lymphocytes % Monocytes % Eosinophils % Basophils % Nucleated RBC % Absolute Neutrophils Absolute Lymphocytes Absolute Monocytes Absolute Eosinophils Absolute Basophils ESR 20 H VBG pH VBG pCO2 VBG pO2 VBG HCO3 VBG Total CO2 VBG O2 Saturation VBG Base Excess VBG Lactate Sodium Potassium Chloride Carbon Dioxide Anion Gap BUN Creatinine Estimated GFR/1.73 m2 Glucose Calcium Total Bilirubin AST ALT Alkaline Phosphatase Creatine Kinase C-Reactive Protein Total Protein Albumin Procalcitonin TSH 2.44 COVID-19 Source SARS-CoV-2 (PCR) Influenza Type A (PCR) Influenza Type B (PCR) RSV (PCR) Objective Narrative Objective Narrative: MRI lumbar spine: 1. At L5-S1 level there is central-right paracentral protrusion as described above.? There is no central canal stenosis.? There is mild right-sided foraminal stenosis at this level.? Exiting left neural foramen is nicely patent. 2. Other disc spaces appear unremarkable the lumbosacral spinal column. 3. There is no significant facet arthropathy evident.? No significant osseous lesions.
[2022-02-06] MEDS: Enoxaparin 40 MG/0.4 ML SYR SC (19:10)
[2022-02-06] MEDS: Ketorolac 30 MG/ML VIAL IVP ×2 (19:11→23:23)
[2022-02-06] MEDS: VANCOMYCIN 1,500 MG in Normal Saline 250 ML 166.667 MG IVPB (20:00)
[2022-02-06] MEDS: predniSONE 20 MG TAB 40 MG PO (20:06)
[2022-02-07] VITALS (8 sets, daily range): BP systolic 130–168; BP diastolic 80–94; PULSE 50–69; RESP 16–20; TEMP 35.8–36.4; O2SAT 97–99
--- NOTE | 2022-02-07 | DI.RAD_ITS ---
Exam(s) XR FEMUR RT EXAM: XR FEMUR RT CLINICAL HISTORY: bacteremia, pain TECHNIQUE: COMPARISON: CR,XR XR FEMUR LT from 02/07/2022 FINDINGS: Three views were obtained. Moderate degenerative changes of the hip noted. No rows of or destructiv e process identified. No evidence of fracture. IMPRESSION: RADIATION DOSE DELIVERED: Total DLP
--- NOTE | 2022-02-07 | DI.RAD_ITS ---
Exam(s) XR FEMUR LT EXAM: XR FEMUR LT CLINICAL HISTORY: bacteremia, pain TECHNIQUE: COMPARISON: No exams were available for comparison FINDINGS: Four views were obtained. There are moderate degenerative changes of the hip. No gross erosive or d estructive lesion identified involving the femur. No fracture seen. IMPRESSION: RADIATION DOSE DELIVERED: Total DLP
[2022-02-07] MEDS: Acetaminophen 500 MG TAB 1000 MG PO ×3 (05:34→21:03)
[2022-02-07] MEDS: Ketorolac 30 MG/ML VIAL IVP (05:34)
[2022-02-07] MEDS: Normal Saline Flush 10 ML SYR IVP ×5 (05:36→23:14)
[2022-02-07 06:41] LABS: Abs Immature Grans 0.03 10^3/uL (0.0-0.06); Absolute Basophil Count 0.01 10^3/uL (0.0-0.2); Absolute Lymphocyte Count 0.51 10^3/uL (1.2-3.4); Absolute Monocyte Count 0.26 10^3/uL (0.1-0.8); Absolute Neutrophil Count 7.95 10^3/uL (1.2-6.7); Basophils % 0.1; HGB 12.3 g/dL (13.5-17.5); Immature Grans % 0.3; Lymphocytes % 5.8; MCH 30.1 pg (27.0-33.0); MCHC 33.2 % (32.0-36.0); MCV 90.5 fL (80-95); MPV 10.3 fL (8.0-11.0); Neutrophils % 90.8; Nucleated RBC 0 %; Platelet Count 188 10^3/uL (130-400); RBC 4.09 10^6/uL (4.36-5.78); RDW 12.2 % (11.8-14.1); RDW-SD 40.5 fL; WBC 8.76 10^3/uL (4.4-10.8)
[2022-02-07 06:49] LABS: Hemoglobin A1C 8.7 % (<5.7)
[2022-02-07 06:51] LABS: Magnesium 2.2 mg/dL (1.8-2.4)
[2022-02-07 07:15] LABS: C-Reactive Protein 22.81 mg/dL (0.0-0.3)
[2022-02-07 07:19] LABS: Anion Gap 8.5 mmol/L (3-11); BUN 21 mg/dL (7-18); CO2 24.5 mmol/L (21.0-32.0); Chloride 102 mmol/L (98-107); Glucose 286 mg/dL (74-106); Potassium 4.8 mmol/L (3.5-5.1); Sodium 135 mmol/L (136-145); Vitamin B12 635 pg/mL (193-986)
[2022-02-07] MEDS: cefTRIAXone 2 GM/50 ML BAG IVPB (08:51)
[2022-02-07] MEDS: Insulin Aspart 300 UNITS/3 ML PEN SC ×4 (08:51→21:03)
[2022-02-07] MEDS: VANCOMYCIN/WATER (PEG) 1.5 GM/300 ML BAG IV ×2 (09:41→18:31)
[2022-02-07] MEDS: Gabapentin 300 MG CAP 600 MG PO ×3 (09:42→20:54)
[2022-02-07] MEDS: Cyanocobalamin 500 MCG TAB 1000 MCG PO (09:42)
[2022-02-07] MEDS: amLODIPine 5 MG TAB 10 MG PO (09:42)
[2022-02-07] MEDS: Losartan 50 MG TAB 100 MG PO (09:42)
[2022-02-07] MEDS: Magnesium Oxide 400 MG TAB 200 MG PO (09:43)
[2022-02-07] MEDS: valACYclovir 500 MG TAB PO ×2 (09:43→20:54)
[2022-02-07] MEDS: Sertraline 50 MG TAB PO (09:43)
[2022-02-07] MEDS: Omeprazole 20 MG CAPCR PO (09:43)
--- NOTE | 2022-02-07 10:20 | DI.CT_ITS ---
Exam(s) CT LOWER EXTREMITY RT W EXAM: CT LOWER EXTREMITY RT W CLINICAL HISTORY: Right Thigh Pain and Swelling TECHNIQUE: COMPARISON: CT CT CHEST PE ABD PELVIS W from 02/05/2022 FINDINGS: CT examination of the thigh was performed intravenous infusion of 100 cc of Omnipaque 350. There are mild degenerative changes of the hip and knee. There is a knee joint effusion with fluid in the sup rapatellar bursa. Note is made of small quantity of fluid layered along the quadriceps musculature anteriorly which is nonspecific. No focal fluid collection seen. No evidence of enhancing margin. IMPRESSION: There is an apparent subfascial fluid collection of the quadriceps compartment, this measures up to a bout 5 millimeters in thickness. Mild overlying soft tissue edema also noted. No focal evidence of abscess or CT evidence of muscle necrosis. Additional evaluation with MR may be considered if clinic ally indicated. RADIATION DOSE DELIVERED: 1,100.35mGy.cm Total DLP !Error CTDIvol RADIATION OPTIMIZATION: All CT scans at this facility use at least one of these dose optimization te chniques: automated exposure control; mA and/or kV adjustment per patient size (includes targeted exa ms where dose is matched to clinical indication); or iterative reconstruction.
--- NOTE | 2022-02-07 10:20 | OCONE_ITS ---
History of Present Illness History of Present Illness Chief Complaint: Bilateral hip and thigh pain Narrative: Lino is a 51-year-old who presented to the emergency department initially on February 04. He reported having a GI bug with primarily nausea and vomiting for a few days. He tried to go to work but was unable to stay at work due to the nausea and vomiting and thus went home. After resting at home, he got up and felt quite weak. As he was walking from the bedroom he stumbled and fell onto his right side. He had some immediate discomfort about the right hip and thigh region but was able to stand on his own and proceeded to the kitchen. He had some continued discomfort about the right hip and thigh but it seemed to be manageable. However, due to this pain he presented to the emergency department where initial x-ray was performed and was negative for any acute fracture and he was diagnosed with a contusion. His initial work-up seem to reveal that this was all related to a GI bug. However, he then try to go back to work on once again was unable to with significant weakness and pain in his legs. Once again, he took a rest at home and when he got up he had immediate pain. He was unable to move very much and had to work to get back to bed. Even laying flat he had pain. At that point, he called EMS and was transferred to the emergency department now on February 05. He was admitted to the medicine service for this bilateral leg and hip pain as well as positive cultures of his urine. He has had 1 of 2 blood cultures returned posi tive for gram-positive cocci in both pairs and clusters. This is still awaiting confirmation with culture and repeat blood cultures have been drawn. I was consulted due to the pain about the hips and thighs. He states that the right is worse than the left although both bothered very similar ways. He reports significant sensitivity to touch over the anterior aspect of the mid thigh. He was able to stand and take a few steps earlier today where he was unable to do that previous. He is currently on ketorolac. Due to the current infection prednisone was initially considered but then not administered. He denies any groin or buttock pain. Does report some mild low back pain. No numbness or tingling. No pain radiating down the leg. The pain seems to be concentrated the midportion of the thigh, once again worse on the right. He denies any significant swelling which is different than his usual. He denies any knee pain. Currently denies fevers or chills. Does have malaise. Denies cough. No recent nausea vomiting. An MRI of his lumbar spine was also performed which demonstrated a small right-sided paracentral disc herniation L5-S1 with minimal foraminal encroachment on the right side and no central stenosis. Consults Consult date: 02/07/22 Requesting physician: Lizett Marmolejo Consult Reason Bilateral thigh pain in the setting of infection Assessment and Plan Assessment and plan (1) Bilateral hip pain: Status: Acute (2) Myalgia: Status: Acute Assessment and plan: Lino is a 51-year-old who has a very interesting presentation of pain about both legs. His pain is really about the mid thigh. It includes both a hypersensitivity component but also pain with active use. This would suggest that it is somewhat superficial or is in the muscle but not necessarily within the bone. His exam would also suggest this not within the joint. Int erestingly, it involves both right and left legs and very similar fashions. He does have 1 set of positive blood cultures which will need to be confirmed and there is a second set still pending. It is possible that he has urosepsis and has an abscess in this region although being very unique area to have an infection. I have very little concern about the joint being involved. Is also possible this may represent some type of post viral myalgia although I do not have a specific diagnosis. Given that the right side is the one that bothers him the most and is the most severe in symptoms, I would proceed with a CT scan of the right thigh with contrast to evaluate for any soft tissue fluid co llections or any other changes to the bone which may suggest an infectious process. Both sides bother him in a very similar fashion so we will use the right side as a first step. He is on ketorolac which is a good option. I think prednisone may be very beneficial if we rule out infection in the leg and follow his blood cultures. He is seemingly getting slightly better although slowly and therefore I do not think we need to urgently [place] anything except proceeding with a CT scan today. I will follow with a CT scan and also follow his labs. Review of Systems All systems reviewed & are unremarkable except as noted in HPI and below PFSH All Active Problems Discharge planning issues (Acute) DVT prophylaxis (Acute) Herniation of intervertebral disc between L5 and S1 (Acute) Pain in both lower extremities (Acute) Type 2 diabetes mellitus (Chronic) Myalgia (Acute) Viral gastroenteritis (Acute) UTI (urinary tract infection) (Acute) Cough (Acute) Fever (Acute) High blood pressure (Chronic) Headache (Acute) Hyperglycemia (Acute) Viral illness (Acute) Contusion of hip, right (Acute) Acute pyelonephritis (Acute) Fever (Acute) Bilateral hip pain (Acute) Low back pain (Acute) Achilles rupture, left (Acute) Plantar fascial fibromatosis (Acute) Tendonitis, Achilles, right (Acute) Syncope (Chronic) Bronchial pneumonia (Acute) Sexual dysfunction (Acute) Cough (Acute) Preventative health care (Acute) Tinea pedis (Acute) Night sweats (Acute) Diabetic peripheral neuropathy (Acute) Neck pain, chronic (Acute) Diabetic retinopathy, background (Acute) Overweight (Acute) Herpes, genital (Acute) Depression (Chronic) Hypertension (Chronic) Subcutaneous mass of right foot (Acute) plantar aspect Medical History Diabetes Sleep apnea does not use device Surgical History H/O arthroscopic knee surgery History of nasal surgery Hx of arthroscopy of shoulder Hx of elbow surgery torn tendon Hx of wisdom tooth extraction Social History Smoking/Tobacco Use Status: Never Smoking risk assessment performed?: Yes Alcohol Intake: current Alcohol Intake frequency: holidays/special occasions only Alcohol type: beer Drug use: Never Substance use type: does not use Current gender identity: male Do you feel safe at home: Yes Do you feel safe in your relationship?: Yes Exam Narrative Exam Narrative: Resting in the hospital bed. He is in no acute distress. Head is normocephalic and atraumatic. He is able to demonstrate full active motion of bilateral upper extremities. Cranial nerves are intact without any significant asymmetries to his face. In the bed he has his right leg slightly more externally rotated in the left side. Both legs are actually rotated. He has a resting plantigrade position of both feet. He is able demonstrate active ankle dorsiflexion and plantarflexion as well as great toe extension and flexion of both feet. Palpation throughout his leg is generally negative except for an area over the anterior aspect of the mid thigh. There may be some slight fluid or at least some increased swelling this area. This literally is within the midportion of the thigh distal to the hip and proximal to the knee over an area of about 10 to 12 cm. He has pain mostly on the right side but the left side has pain in the exact same region. He also has some hyperesthesias in this region as well. Palpation laterally, medially, and posteriorly does not seem to elicit the pain. He is unable to actively straight leg raise. He is able demonstrate active hip flexion with the heel against the bed on the right side but it causes significant pain. On the left side he is able do this with much less discomfort although it does cause pain. When he is fully relaxed I am able to flex and extend the right knee with minimal discomfort. I can also logroll and internally and externally rotate the right hip with minimal discomfort. Once again, any active motion about the right leg causes pain in the mid thigh region. There is no surrounding erythema or swelling about either leg. Once again, there may be some mild fullness in the thigh region but no area of fluctuance. The muscle to palpation is soft. The compartments are soft. No notable lymphadenopathy is palpable. Results Last Vital Signs Temp 36.0 C L 02/07/22 07:27 Pulse 63 02/07/22 09:54 Resp 20 02/07/22 07:27 BP 168/90 H 02/07/22 09:54 Pulse Ox 98 02/07/22 07:27 Labs Result diagrams: 02/07/22 05:55 02/07/22 05:55 Labs: Laboratory Results - last 24 hr 02/07/22 02/07/22 02/07/22 05:55 05:55 05:55 WBC RBC Hgb Hct MCV MCH MCHC RDW Plt Count MPV Immature Gran % Neutrophils % Lymphocytes % Monocytes % Eosinophils % Basophils % Nucleated RBC % Absolute Neutrophils Absolute Lymphocytes Absolute Monocytes Absolute Eosinophils Absolute Basophils Sodium 135 L Potassium 4.8 Chloride 102 Carbon Dioxide 24.5 Anion Gap 8.5 BUN 21 H Creatinine 1.0 Estimated GFR/1.73 m2 >= 60.00 Glucose 286 H Hemoglobin A1c 8.7 H Calcium 8.0 L Magnesium 2.2 C-Reactive Protein 22.81 H Vitamin B12 635 02/07/22 05:55 WBC 8.76 RBC 4.09 L Hgb 12.3 L Hct 37.0 L MCV 90.5 MCH 30.1 MCHC 33.2 RDW 12.2 Plt Count 188 MPV 10.3 Immature Gran % 0.3 Neutrophils % 90.8 Lymphocytes % 5.8 Monocytes % 3.0 Eosinophils % 0.0 Basophils % 0.1 Nucleated RBC % 0 Absolute Neutrophils 7.95 H Absolute Lymphocytes 0.51 L Absolute Monocytes 0.26 Absolute Eosinophils 0.00 Absolute Basophils 0.01 Sodium Potassium Chloride Carbon Dioxide Anion Gap BUN Creatinine Estimated GFR/1.73 m2 Glucose Hemoglobin A1c Calcium Magnesium C-Reactive Protein Vitamin B12 Imaging Imaging Studies: X-ray of the right hip and left hip did not show any significant findings. There are no suspicious bony lesions. No notable effusions. There is some mild arthritis of each hip with still preserved joint space superiorly. Some minor fragmentation seen at the superior rim of the acetabulum with some prominent posterior acetabular osteophyte. The head neck angles are slightly varus. There is dense cortical thickness throughout the proximal femur shaft. X-ray of the right and the left femur does not show any significant abnormalities. He does have very thick cortical dimensions. On the lateral of the right femur there may be some dystrophic calcification seen around the midportion of the femur but I do not see it on the AP view. Is hard appreciate any significant soft tissue abnormality with the x-ray. No significant abnormality in soft tissue and no bony lesions.
--- NOTE | 2022-02-07 11:07 | DI.VRAD_ITS ---
PROCEDURE INFORMATION: Exam: XR Left Femur Exam date and time: 02/07/2022 10:27 AM Age: 51 years old Clinical indication: Pain; Thigh; Bilateral; Patient HX: HX tick bite TECHNIQUE: Imaging protocol: XR Left femur. Views: 2 views. COMPARISON: CR XR HIP LT COMPLETE AP PELVIS 02/06/2022 12:11 PM FINDINGS: Bones/joints: Small left knee effusion. No evidence of acute fracture Soft tissues: Unremarkable. Vasculature: Diffuse vascular calcifications IMPRESSION: No evidence of acute fracture Small left knee joint effusion Dictated and Authenticated by: Sindhu Cotton MD. Ordering:ILIR Phoenix MD
--- NOTE | 2022-02-07 11:08 | DI.VRAD_ITS ---
PROCEDURE INFORMATION: Exam: XR Right Femur Exam date and time: 02/07/2022 10:30 AM Age: 51 years old Clinical indication: Pain; Thigh; Bilateral; Patient HX: HX tick bite TECHNIQUE: Imaging protocol: XR Right femur. Views: 2 views. COMPARISON: MR LOWER EXT RIGHT W/O 11/27/2019 1:40 AM FINDINGS: Bones/joints: Mild osteoarthritis right hip. Small knee joint effusion. No evidence of acute fracture Soft tissues: Unremarkable. Vasculature: Diffuse vascular calcifications IMPRESSION: No evidence of acute fracture Dictated and Authenticated by: Sindhu Cotton MD. Ordering:ILIR Phoenix MD
[2022-02-07] MEDS: Ketorolac 15 MG/ML VIAL IVP ×3 (12:54→23:14)
--- NOTE | 2022-02-07 13:00 | PT.INTREAT ---
PT Notes Visit Reasons: UTI, Myalgias, Fever, Lactic acidosis Inpatient Physical Therapy Treatment Note [facility] Date: 02/07/22 SUBJECTIVE: Lino states that he is will to go for a walk. Still unsure as to what is going on but seems to think it is muscular. OBJECTIVE: [] PAIN:bilateral thighs, right greater than left. BED MOBILITY/TRANSFERS Rolling L/R: I Supine-sit:I Sit-stand: S Stand-sit: S GAIT Assistive Device:FWW Weight bearing:WBAT Assist: CGA Distance: 100' ASSESSMENT: tolerated session well. Pain seemed to get better once on his feet and few steps in. Tends to hold his breath and cues were given to avoid that. PLAN: will look to continue. Progressing ambulation and begin a ther ex routine tomorrow am. TREATMENT CODE/TIME: 15 min [id number]
[2022-02-07] MEDS: Omnipaque 350 MG/ML 100 ML BTL IJ (14:29)
[2022-02-07] MEDS: traMADol 50 MG TAB PO (14:49)
--- NOTE | 2022-02-07 16:20 | W.PM.PROGNOT ---
Date of Service Date of service: 02/07/22 Time of Service: 16:20 Assessment and Plan Assessment and plan (1) Bacteremia: Status: Acute Assessment and plan: 1 blood culture/4 positive for GPCs in pairs and clusters. This is concerning because the patient is growing Staph aureus in his urine (sensitivities pending), so this may be true bacteremia. Vancomycin added yesterday. Increase dose of ceftriaxone to 2 grams daily. Repeat blood cultures. If discordant results from urine C&S, likely a contaminant. However, if concordant, would consider getting an echo to r/o endocaridtis. (2) Pain in both lower extremities: Status: Acute Assessment and plan: Not matching the picture of where you would expect pain from a herniation at that level, however, quite significant. Orthopedics consulted and CT of RLE obtained, demonstrating a small fluid collection which is subfascial in the quadriceps compartment, 5 mm in thickness with soft tissue edema. No evidence of muscle necrosis. MRI is recommended which we plan to obtain on Wednesday. Ddx: hematoma, abscess, serous fluid. Will trial baclofen. Continue antibiotics. Continue scheduled toradol, but d/c prednisone, continue increased dose of gabapentin. Tick/lyme studies pending. Ceftriaxone would at least be partially treating Lyme disease. CPK ok. CRP elevated. B12 somewhat low, but not enough to expalin pain. Continue PT. Await venous dopplers BLEs, though I doubt a VTE. Consider neurology eval. (3) UTI (urinary tract infection): Status: Acute Assessment and plan: Due to Staph Aureus, present on admission. Blood cultures positive (1 bottle/4). Sensitivities of urine C&S pending, speciation of blood cultures is also pending. Continue vancomycin and ceftriaxone 2 grams daily. Given enlarged prostate, monitor bladder scans. (4) Type 2 diabetes mellitus: Status: Chronic Assessment and plan: Continue home basal bolus insulin (5) Herniation of intervertebral disc between L5 and S1: Status: Acute Assessment and plan: Discussed with Dr Moran - not a clinical concern at this time. Will need follow up. No evidence of Cauda equina clinically. Continue working with PT. Monitor bladder scans. (6) Sleep apnea: Assessment and plan: Used to use CPAP, but does not have one currently. PCP is attempting to set up a sleep study referral for him. Meanwhile, we will provide CPAP here because the patient was having apneic episodes when I came to examine him today and he was asleep. (7) DVT prophylaxis: Status: Acute Assessment and plan: enoxaparin SC (8) Discharge planning issues: Status: Acute Assessment and plan: Full code Continues to require hospitalization. Subjective Subjective Interval history since last seen: Mr Ruiz states that the pain in his RLE is a little better. The pain in LLE persists. RLE is worse. It feels like squeezing or a spasm every time he stretches his leg. Denies dizziness, chest pain, shortness of breath, nausea. States he is supposed to use a CPAP - he was diagnosed with sleep apnea after a sleep study at [facility] [place]. 1 blood culture bottle positive for GPCs in pairs and clusters. Exam Narrative Exam Narrative: General: Obese male, asleep and snoring loudy with apneic pauses, wakes up startled, A&Ox3, appears uncomfortable HEENT: EOMI, MMM Heart: RRR, no m/r/g Lungs: CTAB Abdomen: soft, nontender, nondistended Extremities: no edema; Bilateral anterior thigh tenderness to even mild touch, no noticeable improvement. Objective Last Vital Signs Temp 35.8 C L 02/07/22 11:27 Pulse 69 02/07/22 11:27 Resp 20 02/07/22 11:27 BP 168/94 H 02/07/22 11:27 Pulse Ox 99 02/07/22 11:27 Laboratory Results - last 24 hr 02/07/22 02/07/22 02/07/22 05:55 05:55 05:55 WBC RBC Hgb Hct MCV MCH MCHC RDW Plt Count MPV Immature Gran % Neutrophils % Lymphocytes % Monocytes % Eosinophils % Basophils % Nucleated RBC % Absolute Neutrophils Absolute Lymphocytes Absolute Monocytes Absolute Eosinophils Absolute Basophils Sodium 135 L Potassium 4.8 Chloride 102 Carbon Dioxide 24.5 Anion Gap 8.5 BUN 21 H Creatinine 1.0 Estimated GFR/1.73 m2 >= 60.00 Glucose 286 H Hemoglobin A1c 8.7 H Calcium 8.0 L Magnesium 2.2 C-Reactive Protein 22.81 H Vitamin B12 635 02/07/22 05:55 WBC 8.76 RBC 4.09 L Hgb 12.3 L Hct 37.0 L MCV 90.5 MCH 30.1 MCHC 33.2 RDW 12.2 Plt Count 188 MPV 10.3 Immature Gran % 0.3 Neutrophils % 90.8 Lymphocytes % 5.8 Monocytes % 3.0 Eosinophils % 0.0 Basophils % 0.1 Nucleated RBC % 0 Absolute Neutrophils 7.95 H Absolute Lymphocytes 0.51 L Absolute Monocytes 0.26 Absolute Eosinophils 0.00 Absolute Basophils 0.01 Sodium Potassium Chloride Carbon Dioxide Anion Gap BUN Creatinine Estimated GFR/1.73 m2 Glucose Hemoglobin A1c Calcium Magnesium C-Reactive Protein Vitamin B12
[2022-02-07] MEDS: Docusate Sodium 100 MG CAP PO (21:04)
[2022-02-07] MEDS: Milk of Magnesia 30 ML CUP PO (21:04)
[2022-02-08] MEDS: VANCOMYCIN/WATER (PEG) 1.5 GM/300 ML BAG IV (03:15)
[2022-02-08] MEDS: Normal Saline Flush 10 ML SYR IVP ×6 (03:16→18:05)
[2022-02-08 03:44] VITALS: BP 132/85; PULSE 61; RESP 18; TEMP 36.7; O2SAT 96
[2022-02-08] MEDS: Acetaminophen 500 MG TAB 1000 MG PO ×3 (05:32→22:33)
[2022-02-08] MEDS: Ketorolac 15 MG/ML VIAL IVP ×3 (05:33→18:05)
[2022-02-08 07:04] LABS: Abs Immature Grans 0.02 10^3/uL (0.0-0.06); Absolute Basophil Count 0.03 10^3/uL (0.0-0.2); Absolute Lymphocyte Count 0.87 10^3/uL (1.2-3.4); Absolute Monocyte Count 0.66 10^3/uL (0.1-0.8); Absolute Neutrophil Count 6.17 10^3/uL (1.2-6.7); Basophils % 0.4; Eosinophils % 1.3; HCT 33.9 % (40.0-50.0); HGB 11.3 g/dL (13.5-17.5); Immature Grans % 0.3; Lymphocytes % 11.1; MCH 30.5 pg (27.0-33.0); MCHC 33.3 % (32.0-36.0); MCV 91.4 fL (80-95); MPV 10.1 fL (8.0-11.0); Monocytes % 8.4; Neutrophils % 78.5; Nucleated RBC 0 %; Platelet Count 204 10^3/uL (130-400); RBC 3.71 10^6/uL (4.36-5.78); RDW 12.2 % (11.8-14.1); RDW-SD 40.9 fL; WBC 7.85 10^3/uL (4.4-10.8)
[2022-02-08 07:37] LABS: Anion Gap 9.4 mmol/L (3-11); BUN 21 mg/dL (7-18); CO2 22.6 mmol/L (21.0-32.0); Calcium 7.9 mg/dL (8.5-10.1); Chloride 107 mmol/L (98-107); Glucose 139 mg/dL (74-106); Magnesium 2.1 mg/dL (1.8-2.4); Potassium 3.9 mmol/L (3.5-5.1); Sodium 139 mmol/L (136-145)
[2022-02-08 07:42] VITALS: BP 148/89; PULSE 64; RESP 16; TEMP 36.3; O2SAT 99
[2022-02-08] MEDS: Gabapentin 300 MG CAP 600 MG PO ×3 (07:47→20:28)
[2022-02-08] MEDS: valACYclovir 500 MG TAB PO ×2 (07:47→20:27)
[2022-02-08] MEDS: Cyanocobalamin 500 MCG TAB 1000 MCG PO (07:47)
[2022-02-08] MEDS: amLODIPine 5 MG TAB 10 MG PO (07:48)
[2022-02-08] MEDS: Magnesium Oxide 400 MG TAB 200 MG PO (07:48)
[2022-02-08] MEDS: cefTRIAXone 2 GM/50 ML BAG IVPB (07:48)
[2022-02-08] MEDS: Omeprazole 20 MG CAPCR PO (07:48)
[2022-02-08] MEDS: Sertraline 50 MG TAB PO (07:48)
[2022-02-08 07:49] LABS: Procalcitonin 0.2 ng/mL
[2022-02-08] MEDS: Losartan 50 MG TAB 100 MG PO (07:51)
[2022-02-08 08:00] LABS: C-Reactive Protein 10.79 mg/dL (0.0-0.3)
[2022-02-08] MEDS: ceFAZolin 2 GM/50 ML BAG IVPB ×2 (11:04→18:05)
[2022-02-08 11:47] VITALS: BP 160/90; PULSE 70; RESP 18; TEMP 35.8; O2SAT 98
[2022-02-08] MEDS: Baclofen 10 MG TAB PO ×2 (11:57→20:28)
--- NOTE | 2022-02-08 13:46 | PT.INTREAT ---
PT Notes Visit Reasons: UTI, Myalgias, Fever, Lactic acidosis Inpatient Physical Therapy Treatment Note [facility] Date: 02/07/22 SUBJECTIVE: Lino states that he is concerned and frustrated as he still doesn't have answers as to what is going on. He reports that the antibiotic he was on yesterday is not the right one. Feels he lost a day. Spasms are worse today with any type of mvmt. Willing to walk. Willing ot sit for lunch but doesn't want to sit too long. OBJECTIVE: [] PAIN:bilateral thighs, right greater than left. Seems to be worse with knee flex greater than 80 degrees either actively or passively. BED MOBILITY/TRANSFERS Supine-sit:I Sit-supine: min A with LE Sit-stand: S Stand-sit: S GAIT Assistive Device:FWW Weight bearing:WBAT Assist: CGA Distance: 100' Ther ex: performed bed level ex, see flowsheet for detials. ASSESSMENT: tolerated session fair. Many spasms today which took his breath away. Any type of stretch of quads/ hip flexors seems to trigger a muscle spasm. He can sit as long as his knees are straight. This almost immediately takes pain away. Seems to have good strength in both U/LE. States meds are not helpful. PLAN: will look to continue with mobility. TREATMENT CODE/TIME: 30 min total. [id number], [id number]
[2022-02-08] MEDS: Polyethylene Glycol 3350 17 GM PACKET PO (14:59)
[2022-02-08] MEDS: Docusate Sodium 100 MG CAP PO ×2 (14:59→20:28)
[2022-02-08] MEDS: Milk of Magnesia 30 ML CUP PO ×2 (14:59→20:28)
--- NOTE | 2022-02-08 15:19 | W.PM.PROGNOT ---
Date of Service Date of service: 02/08/22 Time of Service: 15:20 Assessment and Plan Assessment and plan (1) MSSA bacteremia: Status: Acute Assessment and plan: Present on admission 02/05: 1 blood culture bottle/4 positive 02/06: 1 bottle/4 positive for GPCs, speciation/sensitivities pending. Likely due to MSSA UTI, also present on admission; however, there is a concern that other parts of the body, such as BLEs, have now been seeded as well as this is where the patient has pain. Endocarditis is also a possibility. Change abx to cefazolin. Await MRIs BLEs tomorrow as well as echo. Blood cultures repeated today. (2) Pain in both lower extremities: Status: Acute Assessment and plan: Not improving. Not matching the picture of where you would expect pain from a herniation at that level, however, quite significant. CT RLE shows a small fluid collection which is subfascial in the quadriceps compartment, 5 mm in thickness with soft tissue edema. No evidence of muscle necrosis on CT, which rules out necrotizing fasciitis. Await MRI BLEs ordered for tomorrow - w/w/o contrast. Continue scheduled toradol and gabapentin. Also pending venous dopplers BLEs, which I expect to be negative. Schedule baclofen, increase dose of dilaudid. Bowel regimen. As above. (3) UTI (urinary tract infection): Status: Acute Assessment and plan: Due to Staph Aureus, present on admission. See #1: changing abx to cefazolin. The patient did not have a full series of bladder scans, so we will reattempt this now given his enlarged prostate. Consider urology consult. (4) Type 2 diabetes mellitus: Status: Chronic Assessment and plan: Half the dose of long acting insulin in anticipation of possible need for OR tomrorow. (5) Herniation of intervertebral disc between L5 and S1: Status: Acute Assessment and plan: Discussed with Dr Moran - not a clinical concern at this time. Will need follow up as outpatient. No evidence of Cauda equina clinically. Continue working with PT. Monitor bladder scans. (6) Sleep apnea: Assessment and plan: Used to use CPAP at home but does not have one currently. Doing well with CPAP at night here. PCP is attempting to set up a sleep study referral for him - we will attempt to call sleep clinic. Continue CPAP HS/with naps (7) DVT prophylaxis: Status: Acute Assessment and plan: enoxaparin SC on hold in light of potential surgery tomorrow (8) Discharge planning issues: Status: Acute Assessment and plan: Full code Continues to require hospitalization. Subjective Subjective Interval history since last seen: Mr Ruiz states that he slept very well on the CPAP last night. I had not slept like that in I don't know how long. The thigh pain in both legs is not any better. He again compares the feeling in the legs to rubber band and spasm with any stretching kind of movement, such as sitting in a chair. He denies dizziness, chest pain, shortness of breath, nausea. Appetite is picking up. He is constipated. He is very anxious about not knowing what's going on. We discussed the plan for tomorrow; MRIs, venous doppler of the legs, echo, that he will be kept NPO after midnight. I saw the patient with his Rosenda present, and all questions were answered. Exam Narrative Exam Narrative: General: Obese male, awake, anxious and uncomfortable, A&Ox3 HEENT: EOMI, MMM Heart: RRR, no m/r/g Lungs: CTAB Abdomen: soft, nontender, nondistended Extremities: no edema; Bilateral anterior thigh tenderness to even mild touch, no erythema; R thigh does feel warm; no clinical improvement Objective Last Vital Signs Temp 35.8 C L 02/08/22 11:47 Pulse 70 02/08/22 11:47 Resp 18 02/08/22 11:47 BP 160/90 H 02/08/22 11:47 Pulse Ox 98 02/08/22 11:47 Laboratory Results - last 24 hr 02/08/22 02/08/22 02/08/22 06:10 06:10 06:10 WBC 7.85 RBC 3.71 L Hgb 11.3 L Hct 33.9 L MCV 91.4 MCH 30.5 MCHC 33.3 RDW 12.2 Plt Count 204 MPV 10.1 Immature Gran % 0.3 Neutrophils % 78.5 Lymphocytes % 11.1 Monocytes % 8.4 Eosinophils % 1.3 Basophils % 0.4 Nucleated RBC % 0 Absolute Neutrophils 6.17 Absolute Lymphocytes 0.87 L Absolute Monocytes 0.66 Absolute Eosinophils 0.10 Absolute Basophils 0.03 Sodium 139 Potassium 3.9 Chloride 107 Carbon Dioxide 22.6 Anion Gap 9.4 BUN 21 H Creatinine 1.0 Estimated GFR/1.73 m2 >= 60.00 Glucose 139 H D Calcium 7.9 L Magnesium 2.1 C-Reactive Protein 10.79 H Procalcitonin 0.2 Vancomycin Trough 02/08/22 13:00 WBC RBC Hgb Hct MCV MCH MCHC RDW Plt Count MPV Immature Gran % Neutrophils % Lymphocytes % Monocytes % Eosinophils % Basophils % Nucleated RBC % Absolute Neutrophils Absolute Lymphocytes Absolute Monocytes Absolute Eosinophils Absolute Basophils Sodium Potassium Chloride Carbon Dioxide Anion Gap BUN Creatinine Estimated GFR/1.73 m2 Glucose Calcium Magnesium C-Reactive Protein Procalcitonin Vancomycin Trough Cancelled
[2022-02-08 15:35] VITALS: BP 184/108; PULSE 66; RESP 26; TEMP 36.9; O2SAT 98
[2022-02-08] MEDS: traMADol 50 MG TAB PO (15:52)
[2022-02-08] MEDS: Insulin Aspart 300 UNITS/3 ML PEN SC ×3 (17:18→23:58)
[2022-02-08 19:43] VITALS: BP 145/89; PULSE 72; RESP 15; TEMP 36.5; O2SAT 99
[2022-02-08] MEDS: HYDROmorphone 2 MG/ML SYR 1 MG IVP (20:27)
[2022-02-08 22:32] VITALS: BP 155/95; PULSE 70; RESP 16; TEMP 36.6; O2SAT 98
[2022-02-09] MEDS: Ketorolac 15 MG/ML VIAL IVP ×4 (00:01→23:12)
[2022-02-09] MEDS: Normal Saline Flush 10 ML SYR IVP ×6 (00:01→20:19)
[2022-02-09] MEDS: DEXTROSE 5%-0.9% SALINE 1,000 ML 100 ML IV ×2 (00:06→10:33)
[2022-02-09] MEDS: ceFAZolin 2 GM/50 ML BAG IVPB ×2 (02:07→09:22)
[2022-02-09 03:10] VITALS: BP 152/82; PULSE 72; RESP 16; TEMP 36.7; O2SAT 98
[2022-02-09] MEDS: Insulin Aspart 300 UNITS/3 ML PEN SC ×3 (05:59→20:18)
[2022-02-09 06:49] LABS: Abs Immature Grans 0.03 10^3/uL (0.0-0.06); Absolute Basophil Count 0.02 10^3/uL (0.0-0.2); Absolute Eosinophil Count 0.19 10^3/uL (0.0-0.7); Absolute Lymphocyte Count 1.06 10^3/uL (1.2-3.4); Absolute Monocyte Count 0.61 10^3/uL (0.1-0.8); Absolute Neutrophil Count 4.23 10^3/uL (1.2-6.7); Basophils % 0.3; Eosinophils % 3.1; HCT 35.8 % (40.0-50.0); HGB 11.6 g/dL (13.5-17.5); Immature Grans % 0.5; Lymphocytes % 17.3; MCH 30.2 pg (27.0-33.0); MCHC 32.4 % (32.0-36.0); MCV 93.2 fL (80-95); MPV 9.6 fL (8.0-11.0); Monocytes % 9.9; Neutrophils % 68.9; Nucleated RBC 0 %; Platelet Count 237 10^3/uL (130-400); RBC 3.84 10^6/uL (4.36-5.78); RDW 12.3 % (11.8-14.1); RDW-SD 42.5 fL; WBC 6.14 10^3/uL (4.4-10.8)
[2022-02-09 07:28] LABS: Anion Gap 6.5 mmol/L (3-11); BUN 18 mg/dL (7-18); C-Reactive Protein 8.83 mg/dL (0.0-0.3); CO2 28.5 mmol/L (21.0-32.0); Calcium 7.9 mg/dL (8.5-10.1); Chloride 106 mmol/L (98-107); Creatine Kinase 23 U/L (39-308); Glucose 150 mg/dL (74-106); Magnesium 2.4 mg/dL (1.8-2.4); Sodium 141 mmol/L (136-145)
[2022-02-09 07:44] VITALS: BP 156/89; PULSE 60; RESP 18; TEMP 36; O2SAT 99
--- NOTE | 2022-02-09 08:00 | DI.US_ITS ---
Exam(s) US EXTREMITY VENOUS BI EXAM: US EXTREMITY VENOUS BI CLINICAL HISTORY: BLE pain. TECHNIQUE: Bilateral lower extremity venous ultrasound performed using grayscale, color-flow, and sp ectral Doppler analysis. COMPARISON: No exams were available for comparison FINDINGS: The bilateral common femoral, femoral and popliteal veins demonstrate normal compressibility, augment ation, and color Doppler. The posterior tibial veins are patent. IMPRESSION: Right: Negative for DVT Left: Negative for DVT DATA REPOSITORY:
--- NOTE | 2022-02-09 08:00 | DI.MRI_ITS ---
Exam(s) MR LOWER EXTREMITY RT WO/W MR LOWER EXTREMITY LT WO/W EXAM: MR LOWER EXTREMITY RT WO/W CLINICAL HISTORY: RLE pain hip to knee, subfacial fluid collection. TECHNIQUE: Multiplanar multisequence MRI was performed. CONTRAST MATERIAL: IV Contrast: 20 mL of Dotarem contrast administered. COMPARISON: CT 07 February 2022 FINDINGS: Right thigh: There is abnormal swelling and edema within the right vastus lateralis muscle. There is a focal abscess measuring 3.7 cm in diameter by 5.7 cm in length. There is also subcutaneous edema and fluid along the lateral aspect of the vastus lateralis muscle. The marrow signal appears normal where visualized. The knee and hip joints are not included on the exam. Left side: Edema and rim enhancement seen distally in the left vastus lateralis muscle with area of e nhancement measuring 4.2 AP by 1.5 transverse by 3.1 cm cephalo caudad. Remaining muscles show daisy l signal. No abnormal marrow signal. Edema in the subcutaneous fat laterally with without drainable collection. IMPRESSION: 5.7 cm abscess in the proximal right vastus lateralis muscle. 4.2 cm abscess in the distal left vastus lateralis muscle. DATA REPOSITORY:
--- NOTE | 2022-02-09 08:00 | DI.US_ITS ---
APPROVED REPORT EXAM: Comprehensive 2D, Doppler, and color-flow Echocardiogram Patient Location: In-Patient Room/Bed: 212 Sde: Ciara Eng RDCS (AE) Indications: Staph bacteremia, Concern for endocarditis Other Information Study Quality: Adequate. Technically limited study due to inability to position patient exam done sup ine on stretcher. Conclusion Normal left ventricular wall thickness and chamber size. Estimated ejection fraction is 60%. Wall m otion is normal The right ventricle is not well visualized Both atria are normal in size There is no structural or hemodynamically significant valvular disease No valvular vegetations were identified Mildly dilated ascending aorta measuring 3.73 cm Wall motion Left Ventricle The left ventricle is normal size. The left ventricular systolic function is normal. The left ventric ular ejection fraction is within the normal range. There is normal left ventricular wall thickness. T here is normal LV segmental wall motion. There is no ventricular septal defect visualized. LVEF is 60 %. Right Ventricle Right ventricle is not well visualized. Right ventricular systolic function could not be assessed. Atria The left atrium size is normal. The right atrium size is normal. The interatrial septum is intact wit h no evidence for an atrial septal defect. Aortic Valve The aortic valve is normal in structure. Aortic valve is trileaflet. There is no aortic valvular sten osis. No aortic regurgitation is present. There is no aortic valvular vegetation. Mitral Valve The mitral valve is normal in structure. No evidence of mitral valve stenosis. Trace mitral regurgita tion. There is no evidence of mitral valve vegetations. Tricuspid Valve The tricuspid valve is normal in structure. Trace tricuspid regurgitation. Unable to assess PA pressu re. There is no tricuspid valve vegetations. Pulmonic Valve The pulmonary valve is normal in structure. There is no pulmonic valvular stenosis. Trace pulmonic re gurgitation. There is no pulmonic valve vegetations. Great Vessels The aortic root is normal in size. The ascending aorta is mildly dilated. Aortic arch is not well vis ualized. The IVC collapses <50% with inspiration. Pericardium There is no pericardial effusion. 2D Dimensions IVSD d PLAX 1.05 cm M: 0.6-1.2 LV Vol A2C d MOD 126.3 mL LVPW d PLAX 1.06 cm M: 0.6 - 1.2 LV Vol A4C d MOD 128.5 mL LVID d PLAX 4.77 cm M: 4.2 - 5.8 LA vol/ BSA A2C s A-L 10.4 mL/m2 LVDs 3.20 cm M: 2.5 - 4.0 LA vol/ BSA A4C s A-L 13.7 mL/m2 Ao Root d 2.91 cm M: 3.1 - 3.7 LA Vol/ BSA Biplane s A-L 14.0 mL/m2 RA Area A4C 13.10 cm2 LA Area A4C s MOD 13.01 cm2 RA Vol/ BSA A4C s A-L 16.3 mL/m2 LA Area A2C s MOD 9.72 cm2 Ao Asc Diam d 3.73 cm M: 2.6 - 3.4 LV EF A4C MOD 58.0 % LV EF Teichholz 60.1 % LV EF A2C MOD 60.3 % LVEF (Prieto's) 60.19 % M: 52 - 72 LV EF Biplane MOD 60.2 % LV Volume 99.60 mL M: 62 - 150 SV 82.09 mL LV Volume Index 45.89 mL/m2 M: 34 - 74 SV Index 37.80 mL/m2 LV Vol Biplane MOD 136.4 mL FS 32.00 % M-Mode TAPSE 2.45 cm (M/F) >1.7 LV Diastology MV E' medial 0.117 (>0.07 m/s) E/A Ratio 1.8 LV E/e MED 7.55 (<14) MV E Vmax 0.89 (0.4-1.3 m/s) MV E' lateral 0.142 (>0.1 m/s) MV A Vmax 0.50 (0.4-1.3 m/s) LV E/e LAT 6.25 (<14) MV E/A Ratio 1.72 MV E/E' medial 7.57 MV E/E' lateral 6.26 Aortic Valve LVOT Area 3.28 cm2 AoV Area Vmax 2.69 cm2 LVOT Vmax 0.94 m/s AoV Area/ BSA (Vmax) 1.24 cm2/m2 LVOT Mean Carlos. 0.63 m/s GUS Mean Carlos. 2.42 cm2 LVOT Peak Grad 3.5 mmHg GUS Mean Carlos. Index 1.11 cm2/m2 LVOT Mean Grad 1.8 mmHg LVOT VTI 0.207 m LVOT Diam s 2.00 cm AoV Vmax 1.15 m/s Velocity Ratio 0.81 AoV Mean Carlos. 0.85 m/s AoV Peak Grad 5.3 mmHg LVOT SV 67.93 mL AoV Mean Grad 3.2 mmHg AoV VTI 0.233 m AoV Area VTI 2.91 cm2 AoV Area/ BSA (VTI) 1.34 cm/m2 Mitral Valve MV DT 180 (160-240 msec) MV PHT 52 msec MV Area PHT 4.22 cm2 MV VTI 0.319 m MV Area VTI 2.13 (4.0-6.0 cm2) Pulmonary Valve PV Vmax 1.02 (0.5-1.5 m/s) RVOT Peak Gr. 1.25 mmHg PV Peak Grad 4.2 mmHg RVOT Mean Gr. 0.70 mmHg PV Mean Grad 2.4 mmHg RVOT VTI 0.138 m PV VTI 0.238 m RVOT Vmax 0.56 m/s
[2022-02-09] MEDS: Gabapentin 300 MG CAP 600 MG PO ×3 (08:04→20:15)
[2022-02-09] MEDS: Baclofen 10 MG TAB PO ×3 (08:04→20:17)
[2022-02-09] MEDS: Polyethylene Glycol 3350 17 GM PACKET PO (08:04)
[2022-02-09] MEDS: Docusate Sodium 100 MG CAP PO ×2 (08:04→20:16)
[2022-02-09] MEDS: amLODIPine 5 MG TAB 10 MG PO (08:04)
[2022-02-09] MEDS: Losartan 50 MG TAB 100 MG PO (08:04)
[2022-02-09] MEDS: Magnesium Oxide 400 MG TAB 200 MG PO (08:05)
[2022-02-09] MEDS: Omeprazole 20 MG CAPCR PO (08:05)
[2022-02-09] MEDS: valACYclovir 500 MG TAB PO ×2 (08:05→20:16)
[2022-02-09] MEDS: Cyanocobalamin 500 MCG TAB 1000 MCG PO (08:05)
[2022-02-09] MEDS: Sertraline 50 MG TAB PO (08:05)
--- NOTE | 2022-02-09 08:05 | NUR.NOTE ---
Nursing Note: At this time patient is NPO. Charge nurse stated he can have all his AM medications.
[2022-02-09] MEDS: Ondansetron 4 MG TAB PO (08:14)
--- NOTE | 2022-02-09 08:41 | CMPROGNOTE_ITS ---
- If Service Date Differs Date of service: 02/09/22 Time of Service: 08:41 Care Management Progress Note S/O: Lino was sitting up in bed visiting with his when CM met with him. He was alert, oriented and easy to engage in conversation. He had additional testing today and is back on a regular diet which he is happy about. Lino is using a CPAP at and tolerating well. A: 51 year old male admitted to [facility] on 02/06/22 for UTI, Myalgias, fever, lactic acidosis P: Lino requires admission for close monitoring, IV abx and further medical work up. Anticipate, Lino will discharge home via private vehicle with when medically cleared by provider. Anticipate he will need follow up appointments with his PCP and urology. CM will continue to support discharge planning needs.
[2022-02-09] MEDS: HYDROmorphone 2 MG/ML SYR 1 MG IVP (09:22)
[2022-02-09 10:48] LABS: Lyme Ab w Rflx to Lyme Confirm Negative (Negative)
[2022-02-09] MEDS: Gadoterate meglumine 20 ML VIAL IVP (11:55)
--- NOTE | 2022-02-09 13:48 | PT.INTREAT ---
Date of service: 02/09/22 Time of Service: 10:47 PT Notes Visit Reasons: UTI, Myalgias, Fever, Lactic acidosis Inpatient Physical Therapy Treatment Note [facility] Date: 02/09/2022 PRECAUTIONS: Fall, activity as tolerated SUBJECTIVE: Lino reports that he continues to experience significant stretching pain in B anterior thighs and B hips with changes in position. His SO is present for afternoon session, stating that she has experience helping him with bathing, dressing, etc, from his recent surgical repair of his Achilles tendon. She also reports that they still have all of the DME he needed after that procedure, including crutches, FWW, wheelchair, commode. OBJECTIVE: Sent request to Clinical Coordinator for Aqu[employer] heating unit for relief of B thigh and hip pain. PAIN: Patient c/o pain in B anterior thigh and B hips with position chages, occasionally reaching 10/10. BED MOBILITY/TRANSFERS Supine-sit: I Sit-supine: Min A of B LE in a.m.; I in p.m. Sit-stand: S Stand-sit: S GAIT Assistive Device: FWW Weight bearing: WBAT B Assist: SBA Distance: 100' in a.m.; 200' in p.m. Deviation: Increased B LE pain, flexed hip and trunk posture, standing rest THEREX: With patient in long-sitting, performed hip abductor stretch 3x20 seconds, bilaterally. ASSESSMENT: Patient tolerated session with complaint of increased pain in B anterior thigh and hips with changes in position and gait training. He was able to demonstrate independence with bed mobility and tolerated a progression in gait training with FWW support. PLAN: Continue with stretching to B LE, ?add manual therapy (IASTM) per PT discretion, continue with gait and transfer training for improved mobility and activity tolerance. TREATMENT CODE/TIME: Session 1: 19 minutes; 17588 (10:47) Session 2: 23 minutes; 47465 x2 (14:27)
[2022-02-09] MEDS: Acetaminophen 500 MG TAB 1000 MG PO ×2 (13:55→20:13)
[2022-02-09 15:25] VITALS: BP 144/86; PULSE 62; RESP 18; TEMP 36; O2SAT 98
--- NOTE | 2022-02-09 16:48 | W.PM.PROGNOT ---
Date of Service Date of service: 02/10/22 Time of Service: 15:16 Assessment and Plan Assessment and plan (1) MSSA bacteremia: Start date: 02/09/22 Start time: 17:37 Status: Acute Assessment and plan: Present on admission 02/05: 1 blood culture bottle/4 positive 02/06: 1 bottle/4 positive for GPCs, speciation/sensitive to cipro, gentamicin, dapto, erythromycin, oxacillin, vanco 02/07: blood cultures with MSSA ID'd. 02/08: blood cultures negative x 48 hours. Likely due to MSSA UTI, also present on admission; Cont oxacillin. MRI bilateral proximal legs: 5.7 cm abscess in the proximal right vastus lateralis muscle. 4.2 cm abscess in the distal left vastus lateralis muscle. US of bilateral proximal legs: left thigh, there is a 2.9 x 0.6 x 3.5 cm intramuscular fluid collection.? right thigh, there is a 5 x 1.3 x 3.1 cm intramuscular fluid collection Echo revealing : Normal left ventricular wall thickness and chamber size.? Estimated ejection fraction is 60%.? Wall motion is normal The right ventricle is not well visualized Both atria are normal in size There is no structural or hemodynamically significant valvular disease No valvular vegetations were identified Mildly dilated ascending aorta measuring 3.73 cm IR at [facility] evaluating radiology studies to determine if fluid collections are amenable to drainage. (2) Pain in both lower extremities: Start date: 02/09/22 Start time: 17:40 Status: Acute Assessment and plan: Warm compressed have been helpful. Pain has improved. Hold off on PT at this time. He states it makes pain and spasing worse. (3) UTI (urinary tract infection): Start date: 02/09/22 Start time: 17:43 Status: Acute Assessment and plan: Due to Staph Aureus, present on admission. as above (4) Type 2 diabetes mellitus: Start date: 02/09/22 Start time: 17:44 Status: Chronic Assessment and plan: SSI and long acting; adjusing as necessary. (5) Herniation of intervertebral disc between L5 and S1: Start date: 02/09/22 Start time: 17:45 Status: Acute Assessment and plan: Discussed with Dr Moran - not a clinical concern at this time. Will need follow up as outpatient. No evidence of Cauda equina clinically. Continue working with PT. Monitor bladder scans. (6) Sleep apnea: Start date: 02/09/22 Start time: 17:45 Assessment and plan: Used to use CPAP at home but does not have one currently. Doing well with CPAP at night here. PCP is attempting to set up a sleep study referral for him, sleep study referral on discharge Continue CPAP HS/with naps (7) DVT prophylaxis: Start date: 02/09/22 Start time: 17:46 Status: Acute Assessment and plan: enoxaparin SC on hold in light of potential IR tomorrow (8) Discharge planning issues: Start date: 02/09/22 Start time: 17:46 Status: Acute Assessment and plan: Full code Continues to require hospitalization. Subjective Subjective Patient reports: no new complaints, still having pain, pain is less, bowel movement, afebrile and other; denies nausea, vomiting or shortness of breath Exam Const General: cooperative and no acute distress Orientation: alert, awake and oriented x3 HENMT Head: normal to inspection Ears: hearing grossly normal bilaterally, external ears normal and TM's normal bilaterally General nose exam: external nose normal Face and sinus: normal facial exam Mouth: oral mucosae normal Teeth and gingiva: dentition normal Throat: posterior oropharynx normal, uvula midline and no peritonsillar masses Eyes General: appearance normal, both eyes and all related structures Eyelids: eyelids normal Pupils: PERRL EOM: EOM intact bilaterally Neck Neck: normal visual inspection Chest Chest: normal inspection of the chest Resp Effort & Inspection: normal respiratory effort and able to speak in complete sentences Auscultation: clear to auscultation bilaterally Cardio Rate: regular rate Rhythm: regular rhythm Heart Sounds: S1 normal and S2 normal GI Inspection: normal to inspection Palpation: soft, not firm, no guarding, no hepatosplenomegaly, no masses and nontender Auscultation: normal bowel sounds Back/Spine/Pelvis Back: no CVA tenderness Thoracic/Lumbar Spine: thoracic and lumbar spine normal to inspection, No thoracic spinal tenderness and No lumbar spinal tenderness Skin General skin exam: no rashes or lesions noted Neuro General: patient alert and patient awake Cognition: normal cognition Speech: speech normal Gait: normal gait Motor: muscle tone normal throughout Sensory Exam: no sensory deficits noted Extrem General: normal to inspection, full ROM, capillary refill normal, no pedal edema and no calf tenderness Upper/lower leg/hip images: 1. Tenderness in proximal lateral thigh. No erythema/swelling. 2. Tenderness in distal lateral thigh. No erhtyema/swelling. Psych Appearance: grossly normal Mental Status: mental status grossly normal Speech and Movement: speech and movement normal Affect: normal affect Thought Process: normal Objective Last Vital Signs Temp 36.0 C L 02/09/22 07:44 Pulse 60 02/09/22 07:44 Resp 18 02/09/22 07:44 BP 156/89 H 02/09/22 07:44 Pulse Ox 99 02/09/22 07:44 Laboratory Results - last 24 hr 02/06/22 02/09/22 02/09/22 08:25 06:18 06:18 WBC 6.14 RBC 3.84 L Hgb 11.6 L Hct 35.8 L MCV 93.2 MCH 30.2 MCHC 32.4 RDW 12.3 Plt Count 237 MPV 9.6 Immature Gran % 0.5 Neutrophils % 68.9 Lymphocytes % 17.3 Monocytes % 9.9 Eosinophils % 3.1 Basophils % 0.3 Nucleated RBC % 0 Absolute Neutrophils 4.23 Absolute Lymphocytes 1.06 L Absolute Monocytes 0.61 Absolute Eosinophils 0.19 Absolute Basophils 0.02 Sodium 141 Potassium 4.0 Chloride 106 Carbon Dioxide 28.5 Anion Gap 6.5 BUN 18 Creatinine 1.0 Estimated GFR/1.73 m2 >= 60.00 Glucose 150 H Calcium 7.9 L Magnesium 2.4 Creatine Kinase 23 L C-Reactive Protein 8.83 H Lyme Disease Antibody Negative
[2022-02-09 17:41] LABS: Anaplasma phagocytophilum Negative (Negative); B. miyamotoi PCR Negative (Negative); Babesia divergens/MO-1 Negative (Negative); Babesia duncani Negative (Negative); Babesia microti Negative (Negative); Ehrlichia chaffeensis Negative (Negative); Ehrlichia ewingii/canis Negative (Negative); Ehrlichia muris eauclairensis Negative (Negative)
[2022-02-09 19:45] VITALS: BP 132/71; PULSE 71; RESP 18; TEMP 36.6; O2SAT 98
[2022-02-09 23:51] VITALS: BP 132/71; PULSE 70; RESP 20; TEMP 36.6; O2SAT 98
--- NOTE | 2022-02-10 | DI.US_ITS ---
Exam(s) US SOFT TISSUE EXTREMITY EXAM: US SOFT TISSUE EXTREMITY CLINICAL HISTORY: bilateral vastus lateralis abscesses. TECHNIQUE: Ultrasound was performed using standard protocol. COMPARISON: MR MR LOWER EXTREMITY RT WO/W from 02/09/2022 US US SOFT TISSUE EXTREMITY from 02/10/2022 FINDINGS: Sonographic assessment utilizing grayscale and color Doppler imaging was performed and targeted to th e area of clinical concern. In the left thigh, there is a 2.9 x 0.6 x 3.5 cm intramuscular fluid collection. On the MRI, the flu id collection measured 4.2 cm. IMPRESSION: DATA REPOSITORY:
--- NOTE | 2022-02-10 | DI.US_ITS ---
Exam(s) US SOFT TISSUE EXTREMITY EXAM: US SOFT TISSUE EXTREMITY CLINICAL HISTORY: Bilateral thigh abscesses.. TECHNIQUE: Ultrasound was performed using standard protocol. COMPARISON: MR MR LOWER EXTREMITY RT WO/W from 02/09/2022 FINDINGS: Sonographic assessment utilizing grayscale and color Doppler imaging was performed and targeted to th e area of clinical concern. In the right thigh, there is a 5 x 1.3 x 3.1 cm intramuscular fluid collection. On the MRI, this col lection measured 5.7 cm. IMPRESSION: DATA REPOSITORY:
[2022-02-10 03:26] VITALS: BP 157/95; PULSE 102; RESP 20; TEMP 36.6; O2SAT 99
[2022-02-10] MEDS: Normal Saline Flush 10 ML SYR IVP ×6 (04:56→23:20)
[2022-02-10] MEDS: Ketorolac 15 MG/ML VIAL IVP ×4 (05:04→23:20)
[2022-02-10] MEDS: Acetaminophen 500 MG TAB 1000 MG PO ×3 (05:04→21:00)
[2022-02-10 06:47] LABS: Abs Immature Grans 0.03 10^3/uL (0.0-0.06); Absolute Basophil Count 0.03 10^3/uL (0.0-0.2); Absolute Eosinophil Count 0.21 10^3/uL (0.0-0.7); Absolute Lymphocyte Count 1.13 10^3/uL (1.2-3.4); Absolute Monocyte Count 0.59 10^3/uL (0.1-0.8); Absolute Neutrophil Count 4.25 10^3/uL (1.2-6.7); Basophils % 0.5; Eosinophils % 3.4; HCT 33.2 % (40.0-50.0); Immature Grans % 0.5; Lymphocytes % 18.1; MCH 30.6 pg (27.0-33.0); MCHC 33.1 % (32.0-36.0); MCV 92.2 fL (80-95); MPV 9.5 fL (8.0-11.0); Monocytes % 9.5; Nucleated RBC 0 %; Platelet Count 246 10^3/uL (130-400); RDW 12.4 % (11.8-14.1); WBC 6.24 10^3/uL (4.4-10.8)
[2022-02-10 06:58] LABS: Anion Gap 6.7 mmol/L (3-11); BUN 20 mg/dL (7-18); CO2 27.3 mmol/L (21.0-32.0); Chloride 107 mmol/L (98-107); Glucose 134 mg/dL (74-106); Potassium 4.5 mmol/L (3.5-5.1); Sodium 141 mmol/L (136-145)
[2022-02-10] MEDS: Losartan 50 MG TAB 100 MG PO (07:44)
[2022-02-10] MEDS: Gabapentin 300 MG CAP 600 MG PO ×3 (07:44→21:01)
[2022-02-10] MEDS: Polyethylene Glycol 3350 17 GM PACKET PO (07:44)
[2022-02-10] MEDS: amLODIPine 5 MG TAB 10 MG PO (07:44)
[2022-02-10] MEDS: Cyanocobalamin 500 MCG TAB 1000 MCG PO (07:45)
[2022-02-10] MEDS: Omeprazole 20 MG CAPCR PO (07:45)
[2022-02-10] MEDS: Sertraline 50 MG TAB PO (07:45)
[2022-02-10] MEDS: valACYclovir 500 MG TAB PO ×2 (07:45→21:00)
[2022-02-10] MEDS: Magnesium Oxide 400 MG TAB 200 MG PO (07:45)
[2022-02-10] MEDS: Docusate Sodium 100 MG CAP PO ×2 (07:45→21:01)
[2022-02-10] MEDS: Baclofen 10 MG TAB PO ×2 (07:45→14:41)
[2022-02-10 07:51] VITALS: BP 169/96; PULSE 63; RESP 20; TEMP 36; O2SAT 98
--- NOTE | 2022-02-10 08:49 | PDOC.CMPRO ---
- If Service Date Differs Date of service: 02/10/22 Time of Service: 08:49 Care Management Progress Note S/O: Lino continues to require hospitalization for IV Abx, PT and additional medication work up. Lino is using a CPAP at and tolerating well. He is anxious to discharge home, however he also wants to be medically ready. A: 51 year old male admitted to [facility] on 02/06/22 for UTI, Myalgias, fever, lactic acidosis P: Lino requires admission for close monitoring, IV abx and further medical work up. Anticipate, Lino will discharge home via private vehicle with when medically cleared by provider. Anticipate he will need follow up appointments with his PCP and urology. CM will continue to support discharge planning needs.
[2022-02-10 12:15] VITALS: BP 170/97; PULSE 69; RESP 18; TEMP 36.4; O2SAT 97
[2022-02-10] MEDS: Insulin Aspart 300 UNITS/3 ML PEN SC ×3 (12:23→21:02)
[2022-02-10 15:30] VITALS: BP 149/87; PULSE 71; RESP 18; TEMP 36.4; O2SAT 97
[2022-02-10] MEDS: diazePAM 5 MG TAB PO ×2 (18:04→20:59)
[2022-02-10 19:58] VITALS: BP 150/82; PULSE 72; RESP 18; TEMP 36.7; O2SAT 97
[2022-02-10 23:27] VITALS: BP 156/90; PULSE 69; RESP 18; TEMP 36.6; O2SAT 98
[2022-02-11 03:22] VITALS: BP 155/85; PULSE 70; RESP 18; TEMP 36.8; O2SAT 98
[2022-02-11] MEDS: Normal Saline Flush 10 ML SYR IVP ×8 (05:05→23:29)
[2022-02-11] MEDS: Ketorolac 15 MG/ML VIAL IVP ×4 (05:05→23:30)
[2022-02-11] MEDS: Acetaminophen 500 MG TAB 1000 MG PO ×3 (06:00→21:24)
[2022-02-11 06:27] LABS: HCT 31.9 % (40.0-50.0); HGB 10.4 g/dL (13.5-17.5); MCH 30.2 pg (27.0-33.0); MCHC 32.6 % (32.0-36.0); MCV 92.7 fL (80-95); MPV 9.7 fL (8.0-11.0); Platelet Count 259 10^3/uL (130-400); RBC 3.44 10^6/uL (4.36-5.78); RDW 12.1 % (11.8-14.1); RDW-SD 41.7 fL; WBC 5.62 10^3/uL (4.4-10.8)
[2022-02-11 07:45] VITALS: BP 164/96; PULSE 106; RESP 19; TEMP 36; O2SAT 98
[2022-02-11] MEDS: amLODIPine 5 MG TAB 10 MG PO (07:56)
[2022-02-11] MEDS: Cyanocobalamin 500 MCG TAB 1000 MCG PO (07:56)
[2022-02-11] MEDS: Gabapentin 300 MG CAP 600 MG PO ×3 (07:57→21:23)
[2022-02-11] MEDS: diazePAM 5 MG TAB PO ×2 (07:57→18:50)
[2022-02-11] MEDS: Docusate Sodium 100 MG CAP PO ×2 (07:57→21:23)
[2022-02-11] MEDS: Losartan 50 MG TAB 100 MG PO (07:58)
[2022-02-11] MEDS: Omeprazole 20 MG CAPCR PO (07:59)
[2022-02-11] MEDS: Magnesium Oxide 400 MG TAB 200 MG PO (07:59)
[2022-02-11] MEDS: Sertraline 50 MG TAB PO (08:00)
[2022-02-11] MEDS: valACYclovir 500 MG TAB PO ×2 (08:00→21:24)
[2022-02-11] MEDS: Insulin Aspart 300 UNITS/3 ML PEN SC ×4 (08:18→21:29)
--- NOTE | 2022-02-11 09:07 | PDOC.CMPRO ---
- If Service Date Differs Date of service: 02/11/22 Time of Service: 09:07 Care Management Progress Note S/O: Lino was sitting up in bed eating his lunch when CM met with him. He is planning on having surgical intervention tomorrow, and will be NPO after Mid-Night. Per Dr. Murillo, if Lino is able to transition to oral ABX he may be able to discharge home on Wednesday. He would benefit from outpatient PT or [facility] PT. Pts brought in Medical forms from his employer for short term disability. CM faxed forms to his PCP, Mariella Ramon at [facility] to complete. Original forms were handed back to Lino's . Lino will follow up with his PCP for short term disability, if he qualifies. Lino doesn't feel he needs a note for work to support his inpatient hospital admission, at this time. He will notify CM if that changes. A: 51 year old male admitted to [facility] on 02/06/22 for UTI, Myalgias, fever, lactic acidosis P: Lino requires admission for close monitoring, IV abx and further medical work up. Anticipate, Lino will discharge home via private vehicle with when medically cleared by provider. Anticipate he will need follow up appointments with his PCP and urology. CM will continue to support discharge planning needs.
[2022-02-11 12:00] VITALS: BP 164/100; PULSE 66; RESP 18; TEMP 36.4; O2SAT 98
--- NOTE | 2022-02-11 14:08 | W.PM.PROGNOT ---
Date of Service Date of service: 02/11/22 Time of Service: 14:08 Assessment and Plan Assessment and plan (1) MSSA bacteremia: Status: Acute Assessment and plan: Present on admission 02/05: 1 blood culture bottle/4 positive 02/06: 1 bottle/4 positive for GPCs, speciation/sensitive to cipro, gentamicin, dapto, erythromycin, oxacillin, vanco 02/07: blood cultures with MSSA ID'd. 02/08: blood cultures negative x 48 hours. Likely due to MSSA UTI, also present on admission; Cont oxacillin. MRI bilateral proximal legs: 5.7 cm abscess in the proximal right vastus lateralis muscle. 4.2 cm abscess in the distal left vastus lateralis muscle. US of bilateral proximal legs: left thigh, there is a 2.9 x 0.6 x 3.5 cm intramuscular fluid collection.? right thigh, there is a 5 x 1.3 x 3.1 cm intramuscular fluid collection Echo revealing : Normal left ventricular wall thickness and chamber size.? Estimated ejection fraction is 60%.? Wall motion is normal The right ventricle is not well visualized Both atria are normal in size There is no structural or hemodynamically significant valvular disease No valvular vegetations were identified Mildly dilated ascending aorta measuring 3.73 cm Planned drainage of RLE abscess tomorrow [place] [facility] [place]. Orders sent. (2) Pain in both lower extremities: Status: Acute Assessment and plan: Warm compressed have been helpful. Pain has improved. Hold off on PT at this time. He states it makes pain and spasing worse. (3) UTI (urinary tract infection): Status: Acute (4) Type 2 diabetes mellitus: Status: Chronic Assessment and plan: SSI and long acting; adjusing as necessary. (5) Herniation of intervertebral disc between L5 and S1: Status: Acute (6) Sleep apnea: Assessment and plan: Previous use of CPAP but not currently. PCP planning to set up sleep study. Using CPAP while inpatient. (7) DVT prophylaxis: Status: Acute Assessment and plan: Enoxaparin on hold for procedure tomorrow. SCDs. (8) Discharge planning issues: Status: Acute Assessment and plan: Full code Continues to require hospitalization. Subjective Subjective Patient reports: no new complaints, tolerating a regular diet and afebrile; denies nausea, vomiting or shortness of breath Exam Const General: cooperative and no acute distress Orientation: alert, awake and oriented x3 HENMT Head: normal to inspection Ears: hearing grossly normal bilaterally, external ears normal and TM's normal bilaterally General nose exam: external nose normal Face and sinus: normal facial exam Mouth: oral mucosae normal Teeth and gingiva: dentition normal Throat: posterior oropharynx normal, uvula midline and no peritonsillar masses Eyes General: appearance normal, both eyes and all related structures Eyelids: eyelids normal Pupils: PERRL EOM: EOM intact bilaterally Neck Neck: normal visual inspection Chest Chest: normal inspection of the chest Resp Effort & Inspection: normal respiratory effort and able to speak in complete sentences Auscultation: clear to auscultation bilaterally Cardio Rate: regular rate Rhythm: regular rhythm Heart Sounds: S1 normal and S2 normal GI Inspection: normal to inspection Palpation: soft, not firm, no guarding, no hepatosplenomegaly, no masses and nontender Auscultation: normal bowel sounds Back/Spine/Pelvis Back: no CVA tenderness Thoracic/Lumbar Spine: thoracic and lumbar spine normal to inspection, No thoracic spinal tenderness and No lumbar spinal tenderness Skin General skin exam: no rashes or lesions noted Neuro General: patient alert and patient awake Cognition: normal cognition Speech: speech normal Gait: normal gait Motor: muscle tone normal throughout Sensory Exam: no sensory deficits noted Extrem General: normal to inspection, full ROM, no pedal edema and no calf tenderness Upper/lower leg/hip images: 1. Mild tenderness with deep palpation. NO swelling/erythema. 2. Mild tenderness with deep palpation. No swelling/erythema. Psych Appearance: grossly normal Mental Status: mental status grossly normal Speech and Movement: speech and movement normal Affect: normal affect Thought Process: normal Objective Last Vital Signs Temp 36.4 C L 02/11/22 12:00 Pulse 66 02/11/22 12:00 Resp 18 02/11/22 12:00 BP 164/100 H 02/11/22 12:00 Pulse Ox 98 02/11/22 12:00 Laboratory Results - last 24 hr 02/11/22 06:02 WBC 5.62 RBC 3.44 L Hgb 10.4 L Hct 31.9 L MCV 92.7 MCH 30.2 MCHC 32.6 RDW 12.1 Plt Count 259 MPV 9.7
[2022-02-11 15:30] VITALS: BP 158/96; PULSE 71; RESP 17; TEMP 36.7; O2SAT 96
[2022-02-11 18:44] VITALS: BP 160/85; PULSE 76; RESP 18; TEMP 36.1; O2SAT 99
--- NOTE | 2022-02-11 21:19 | W.PM.PROGNOT ---
Date of Service Date of service: 02/11/22 Time of Service: 13:00 Assessment and Plan Assessment and plan (1) Abscess of right thigh: Status: Acute Assessment and plan: Lino is a 51yo who has MSSA urosepsis and intramuscular abscesses of both the right and left vastus lateralis. I recommend IR drainage of these abscesses if amenable but given the relatively small size, this is not a good case for any open debridement due to its positioning and the inherent collateral damage required to access these areas. There are no signs or symptoms of any contiguous spread to neighboring joints. At this point, I will continue to follow peripherally but do not see any need for orthopaedic involvement but simply to treat the infection per ID recommendations. (2) Abscess of left thigh: Status: Acute Subjective Subjective Interval history since last seen: Lino has had some improvement with the symptoms. He is now able to ambulate far distances. His right hip and thigh is definitely the worst of the 2. However, the left still bothersome. In general, he is happy that he is making some progress. He has had an MRI which I had reviewed previously with Dr. Bach current staff which did show to intramuscular abscesses. Further imaging has been performed and I recommended interventional radiology for drainage of these abscesses. He is scheduled for this on February 12. He has had no other changes symptoms. He denies any groin or buttock pain. He denies any knee joint pain. Objective Last Vital Signs Temp 36.1 C L 02/11/22 18:44 Pulse 76 02/11/22 18:44 Resp 18 02/11/22 18:44 BP 160/85 H 02/11/22 18:44 Pulse Ox 99 02/11/22 18:44 Laboratory Results - last 24 hr 02/11/22 06:02 WBC 5.62 RBC 3.44 L Hgb 10.4 L Hct 31.9 L MCV 92.7 MCH 30.2 MCHC 32.6 RDW 12.1 Plt Count 259 MPV 9.7
[2022-02-11 23:25] VITALS: BP 151/92; PULSE 65; RESP 18; TEMP 36.3; O2SAT 94
[2022-02-12] MEDS: Ketorolac 15 MG/ML VIAL IVP (06:06)
[2022-02-12] MEDS: Normal Saline Flush 10 ML SYR IVP ×3 (06:06→23:42)
[2022-02-12 06:08] VITALS: BP 162/78; PULSE 73; RESP 18; TEMP 36.2; O2SAT 95
[2022-02-12 07:13] LABS: Anion Gap 7.9 mmol/L (3-11); BUN 23 mg/dL (7-18); CO2 30.1 mmol/L (21.0-32.0); Calcium 8.3 mg/dL (8.5-10.1); Chloride 104 mmol/L (98-107); Glucose 160 mg/dL (74-106); Potassium 4.5 mmol/L (3.5-5.1); Sodium 142 mmol/L (136-145)
[2022-02-12 08:39] VITALS: BP 152/95; PULSE 72; RESP 16; TEMP 36.3; O2SAT 98
--- NOTE | 2022-02-12 09:55 | CMPROGNOTE_ITS ---
- If Service Date Differs Date of service: 02/12/22 Time of Service: 09:55 Care Management Progress Note S/O: Lino is going to [facility] for a down and back procedure today. Per yesterday's discussion with Dr. Murillo, if Lino is able to transition to oral ABX after the procedure he may be able to discharge home on Wednesday. Lino will need outpatient PT vs [facility] PT. Yesterday, CM faxed Short Term disability paperwork to his PCP, Mariella Ramon at [facility]. Original forms were handed back to Lino's . Lino reports that his employer is aware of his Hospital Admission and a work letter is not needed at this time. Lino will notify CM if that changes. A: 51 year old male admitted to [facility] on 02/06/22 for UTI, Myalgias, fever, lactic acidosis P: Lino requires admission for close monitoring, IV abx and further medical work up. Anticipate, Lino will discharge home via private vehicle with when medically cleared by provider. Anticipate he will need follow up appointments with his PCP and urology. CM will continue to support discharge planning needs.
[2022-02-12 13:35] VITALS: BP 154/91; PULSE 66; RESP 16; TEMP 36.8; O2SAT 94
[2022-02-12] MEDS: Acetaminophen 500 MG TAB 1000 MG PO ×2 (13:48→21:17)
[2022-02-12] MEDS: ceFAZolin 2 GM/50 ML BAG IVPB ×2 (13:49→21:17)
[2022-02-12] MEDS: amLODIPine 5 MG TAB 10 MG PO (13:49)
[2022-02-12] MEDS: Gabapentin 300 MG CAP 600 MG PO ×2 (13:50→20:18)
[2022-02-12] MEDS: diazePAM 5 MG TAB PO ×2 (13:50→20:17)
[2022-02-12] MEDS: Cyanocobalamin 500 MCG TAB 1000 MCG PO (13:50)
[2022-02-12] MEDS: Magnesium Oxide 400 MG TAB 200 MG PO (13:51)
[2022-02-12] MEDS: Omeprazole 20 MG CAPCR PO (13:51)
[2022-02-12] MEDS: Polyethylene Glycol 3350 17 GM PACKET PO (13:51)
[2022-02-12] MEDS: Losartan 50 MG TAB 100 MG PO (13:51)
[2022-02-12] MEDS: Sertraline 50 MG TAB PO (13:52)
[2022-02-12] MEDS: valACYclovir 500 MG TAB PO ×2 (14:15→20:18)
--- NOTE | 2022-02-12 15:21 | PGE_ITS ---
Date of Service Date of service: 02/12/22 Time of Service: 15:44 Assessment and Plan Assessment and plan (1) MSSA bacteremia: Status: Acute Assessment and plan: Present on admission 02/05: 1 blood culture bottle/4 positive 02/06: 1 bottle/4 positive for GPCs, speciation/sensitive to cipro, gentamicin, dapto, erythromycin, oxacillin, vanco 02/07: blood cultures with MSSA ID'd. 02/08: blood cultures negative x 48 hours. Likely due to MSSA UTI, also present on admission; Cont oxacillin. MRI bilateral proximal legs: 5.7 cm abscess in the proximal right vastus latera lis muscle. 4.2 cm abscess in the distal left vastus lateralis muscle. US of bilateral proximal legs: left thigh, there is a 2.9 x 0.6 x 3.5 cm intramuscular fluid collection.? right thigh, there is a 5 x 1.3 x 3.1 cm intramuscular fluid collection Echo revealing : Normal left ventricular wall thickness and chamber size.? Estimated ejection fraction is 60%.? Wall motion is normal The right ventricle is not well visualized Both atria are normal in size There is no structural or hemodynamically significant valvular disease No valvular vegetations were identified Mildly dilated ascending aorta measuring 3.73 cm Antibiotic coverage changed to Cefazolin 2 gr Q8H. This may allow for him to d/c to home with self administration. Planning 1 more week of antibiotics. (2) UTI (urinary tract infection): Status: Acute Assessment and plan: MSSA / treated and asymptomatic. (3) Type 2 diabetes mellitus: Status: Chronic Assessment and plan: SSI and long acting; adjusing as necessary. (4) Sleep apnea: Assessment and plan: Previous use of CPAP but not currently. PCP planning to set up sleep study. Using CPAP while inpatient. (5) DVT prophylaxis: Status: Acute Assessment and plan: Enoxaparin on hold for procedure tomorrow. SCDs. (6) Discharge planning issues: Status: Acute Assessment and plan: Full code Continues to require hospitalization. (7) Abscess of leg, right: Status: Acute Assessment and plan: Abscess of both R and L vastus lateralis muscle. S/P drainage of RLE abscess drainage by IR. Drain in place. See above for antibiotic coverage. Subjective Subjective Patient reports: no new complaints, tolerating a regular diet and afebrile; denies nausea or vomiting Interval history since last seen: s/p IR guided drainage of RLE abscess. Some discomfort/pain in the RLE drainage site. Exam Const General: cooperative and no acute distress Orientation: alert, awake and oriented x3 HENMT Head: normal to inspection Ears: hearing grossly normal bilaterally, external ears normal and TM's normal bilaterally General nose exam: external nose normal Face and sinus: normal facial exam Mouth: oral mucosae normal Teeth and gingiva: dentition normal Throat: posterior oropharynx normal, uvula midline and no peritonsillar masses Eyes General: appearance normal, both eyes and all related structures Eyelids: eyelids normal Pupils: PERRL EOM: EOM intact bilaterally Neck Neck: normal visual inspection Chest Chest: normal inspection of the chest Resp Effort & Inspection: normal respiratory effort and able to speak in complete sentences Auscultation: clear to auscultation bilaterally Cardio Rate: regular rate Rhythm: regular rhythm Heart Sounds: S1 normal and S2 normal GI Inspection: normal to inspection Palpation: soft, not firm, no guarding, no hepatosplenomegaly, no masses and nontender Auscultation: normal bowel sounds Back/Spine/Pelvis Back: no CVA tenderness Thoracic/Lumbar Spine: thoracic and lumbar spine normal to inspection, No thoracic spinal tenderness and No lumbar spinal tenderness Skin General skin exam: no rashes or lesions noted Neuro General: patient alert and patient awake Cognition: normal cognition Speech: speech normal Gait: normal gait Motor: muscle tone normal throughout Sensory Exam: no sensory deficits noted Extrem General: normal to inspection, no pedal edema and no calf tenderness Upper/lower leg/hip images: 1. ANJELICA drain Psych Appearance: grossly normal Mental Status: mental status grossly normal Speech and Movement: speech and movement normal Affect: normal affect Thought Process: normal Objective Last Vital Signs Temp 36.8 C 02/12/22 13:35 Pulse 66 02/12/22 13:35 Resp 16 02/12/22 13:35 BP 154/91 H 02/12/22 13:35 Pulse Ox 94 02/12/22 13:35 Laboratory Results - last 24 hr 02/12/22 06:30 Sodium 142 Potassium 4.5 Chloride 104 Carbon Dioxide 30.1 Anion Gap 7.9 BUN 23 H Creatinine 1.0 Estimated GFR/1.73 m2 >= 60.00 Glucose 160 H Calcium 8.3 L
[2022-02-12 15:24] VITALS: BP 155/92; PULSE 67; RESP 20; TEMP 35.6; O2SAT 96
[2022-02-12] MEDS: traMADol 50 MG TAB PO ×2 (16:29→21:33)
[2022-02-12] MEDS: HYDROmorphone 2 MG/ML SYR 1 MG IVP ×2 (16:44→23:42)
[2022-02-12] MEDS: Lactated Ringers 1,000 ML 80 ML IV (19:23)
[2022-02-12 19:42] VITALS: BP 134/90; PULSE 68; RESP 19; TEMP 36.1; O2SAT 95
[2022-02-12] MEDS: Docusate Sodium 100 MG CAP PO (20:18)
[2022-02-12] MEDS: Insulin Aspart 300 UNITS/3 ML PEN SC (21:27)
[2022-02-12 23:10] VITALS: BP 160/90; PULSE 68; RESP 18; TEMP 36.2; O2SAT 97
[2022-02-13] MEDS: Zolpidem 5 MG TAB PO (00:04)
[2022-02-13 04:19] VITALS: BP 142/91; PULSE 59; RESP 20; TEMP 36.4; O2SAT 96
[2022-02-13] MEDS: Acetaminophen 500 MG TAB 1000 MG PO ×3 (05:14→21:35)
[2022-02-13] MEDS: ceFAZolin 2 GM/50 ML BAG IVPB ×3 (05:15→21:36)
[2022-02-13] MEDS: HYDROmorphone 2 MG/ML SYR 1 MG IVP (05:22)
[2022-02-13] MEDS: Normal Saline Flush 10 ML SYR IVP (05:23)
[2022-02-13 06:25] LABS: Platelet Count 295 10^3/uL (130-400)
[2022-02-13 07:46] VITALS: BP 149/90; PULSE 71; RESP 22; TEMP 36.1; O2SAT 96
[2022-02-13] MEDS: Gabapentin 300 MG CAP 600 MG PO ×3 (08:03→20:20)
[2022-02-13] MEDS: Docusate Sodium 100 MG CAP PO ×2 (08:03→20:20)
[2022-02-13] MEDS: Cyanocobalamin 500 MCG TAB 1000 MCG PO (08:03)
[2022-02-13] MEDS: amLODIPine 5 MG TAB 10 MG PO (08:03)
[2022-02-13] MEDS: valACYclovir 500 MG TAB PO ×2 (08:03→20:32)
[2022-02-13] MEDS: Magnesium Oxide 400 MG TAB 200 MG PO (08:04)
[2022-02-13] MEDS: Sertraline 50 MG TAB PO (08:04)
[2022-02-13] MEDS: Losartan 50 MG TAB 100 MG PO (08:04)
[2022-02-13] MEDS: Omeprazole 20 MG CAPCR PO (08:04)
[2022-02-13] MEDS: diazePAM 5 MG TAB PO ×3 (08:05→20:20)
[2022-02-13] MEDS: Polyethylene Glycol 3350 17 GM PACKET PO (08:05)
--- NOTE | 2022-02-13 09:56 | CMPROGNOTE_ITS ---
- If Service Date Differs Date of service: 02/13/22 Time of Service: 09:56 Care Management Progress Note S/O: CM spoke with Lino and his about discharge plan for tomorrow Morning. Lino is planning on discharging at 10am, after he works with PT. Pt will receive home IV ABX and Equipment through [facility]. Per Mariella at [facility] DME will be delivered to patients home by 2pm Wednesday. Irving at [facility] was notified, and will plan to have a RN there for 2pm, to help administer first home dose. Patient's is willing to help support the process. Lino hasn't ambulated much since his procedure at [facility] and would like to work with PT tomorrow morning before he's discharged. This will give him peace of mind that he's ready for discharge from a PT standpoint. His took a week off work, so she can be home with him following discharge. A: 51 year old male admitted to [facility] on 02/06/22 for UTI, Myalgias, fever, lactic acidosis P: Lino requires admission for close monitoring, IV abx and further medical work up. Anticipate, Lino will discharge home via private vehicle with . He will require IV ABX X 7 days through [facility] and New [facility] RN, PT. Anticipate he will need follow up appointments with his PCP and urology. CM will continue to support discharge planning needs.
[2022-02-13 11:19] VITALS: BP 164/97; PULSE 70; RESP 17; TEMP 36.2; O2SAT 97
--- NOTE | 2022-02-13 11:56 | W.ANESVAS ---
Midline Placement Date Performed: 02/13/22 Procedure Time: 11:48 Requesting Provider: Navneet Murillo Procedure Location: Med/Surg Sedation Given (Indicate Dose Given): No Sedation given Patient Mental Status: Awake Sterility: Hand Hygiene, Surgical Cap, Surgical Mask, Sterile Gloves and Chlorhexidine Laterality: Right Insertion Site: Brachial Midline Device: PowerGlide Pro 18G Catheter Length: 10 cm Midline Procedure Procedure: 1% Lidocaine to skin and subcutaneous tissue with 25g needle, Vessel accessed with needle, Vessel accessed with catheter over needle, Guidewire placed with ease and Catheter placed without resistance Dressing: Tegaderm Applied and Chlorhexidine Dressing Blood Return: Present Flushes: Easily Ultrasound: Sterile probe cover and gel used Ultrasound Image Saved?: Yes Number of Attempts (See previous attempts in note section): 1 Procedure Tolerated: No Complications Procedure Outcome: Successful Performed By: Fabrizio Harvey
[2022-02-13 11:59] LABS: Bilirubin Negative (Negative); Blood Large (Negative); Clarity Cloudy (Clear); Glucose Negative (Negative); Ketones Negative (Negative); Leukocyte Esterase Negative (Negative); Nitrite Negative (Negative); Urobilinogen 0.2 EU/dL (Up TO 0.2)
[2022-02-13] MEDS: traMADol 50 MG TAB PO ×2 (12:05→20:20)
[2022-02-13 12:08] LABS: Bacteria Negative HPF (Negative); C & S Indicated? No; Crystals Negative HPF (Negative); Epithelial Cells Rare HPF (Negative); Mucus Negative (Negative); RBC >50 HPF (0-2); WBC 0-2 HPF (0-5)
[2022-02-13] MEDS: Insulin Aspart 300 UNITS/3 ML PEN SC ×3 (12:16→21:37)
[2022-02-13 15:35] VITALS: BP 150/69; PULSE 82; RESP 22; TEMP 36.7; O2SAT 98
[2022-02-13 20:23] VITALS: BP 131/78; PULSE 76; RESP 16; TEMP 36.6; O2SAT 98
[2022-02-13] MEDS: Lactated Ringers 1,000 ML 80 ML IV (20:34)
[2022-02-13 23:29] VITALS: BP 142/87; PULSE 70; RESP 18; TEMP 37.2; O2SAT 95
[2022-02-14 05:57] VITALS: BP 131/89; PULSE 67; RESP 16; TEMP 36.4; O2SAT 98
[2022-02-14] MEDS: ceFAZolin 2 GM/50 ML BAG IVPB ×3 (05:57→21:51)
[2022-02-14] MEDS: Acetaminophen 500 MG TAB 1000 MG PO ×3 (05:57→21:50)
[2022-02-14] MEDS: traMADol 50 MG TAB PO ×2 (06:32→22:00)
[2022-02-14] MEDS: Polyethylene Glycol 3350 17 GM PACKET PO (07:38)
[2022-02-14] MEDS: Gabapentin 300 MG CAP 600 MG PO ×3 (07:38→19:48)
[2022-02-14] MEDS: Magnesium Oxide 400 MG TAB 200 MG PO (07:38)
[2022-02-14] MEDS: Omeprazole 20 MG CAPCR PO (07:38)
[2022-02-14] MEDS: Sertraline 50 MG TAB PO (07:38)
[2022-02-14] MEDS: amLODIPine 5 MG TAB 10 MG PO (07:38)
[2022-02-14] MEDS: Losartan 50 MG TAB 100 MG PO (07:38)
[2022-02-14] MEDS: Cyanocobalamin 500 MCG TAB 1000 MCG PO (07:39)
[2022-02-14] MEDS: valACYclovir 500 MG TAB PO ×2 (07:39→19:48)
[2022-02-14] MEDS: diazePAM 5 MG TAB PO ×3 (07:39→19:48)
[2022-02-14] MEDS: Docusate Sodium 100 MG CAP PO ×2 (07:39→19:48)
[2022-02-14 07:43] VITALS: BP 152/94; PULSE 70; RESP 17; TEMP 35.9; O2SAT 98
--- NOTE | 2022-02-14 09:21 | PGE_ITS ---
Date of Service Date of service: 02/14/22 Time of Service: 09:21 Assessment and Plan Assessment and plan (1) MSSA bacteremia: Status: Acute Assessment and plan: Present on admission 02/05: 1 blood culture bottle/4 positive 02/06: 1 bottle/4 positive for GPCs, speciation/sensitive to cipro, gentamicin, dapto, erythromycin, oxacillin, vanco 02/07: blood cultures with MSSA ID'd. 2 of 4 bottles cultures positive 02/08: blood cultures negative x 120 hrs MRI bilateral proximal legs: 5.7 cm abscess in the proximal right vastus lateralis muscle. 4.2 cm abscess in the distal left vastus lateralis muscle. US of bilateral proximal legs: left thigh, there is a 2.9 x 0.6 x 3.5 cm intramuscular fluid collection.? right thigh, there is a 5 x 1.3 x 3.1 cm intramuscular fluid collection Echo revealing : Normal left ventricular wall thickness and chamber size.? Estimated ejection fraction is 60%.? Wall motion is normal The right ventricle is not well visualized Both atria are normal in size There is no structural or hemodynamically significant valvular disease No valvular vegetations were identified Mildly dilated ascending aorta measuring 3.73 cm Antibiotic coverage changed to Cefazolin 2 gr Q8H since 02/08 but prior coverage w/ Rocephin and oxacillin. His was prepared to give him his cefazolin at home and [facility] was to provide the antibiotics, however w/ his concerns over not having walked for P.T. and wi th his new hematuria, I have put his dc on hold for the weekend. (2) UTI (urinary tract infection): Status: Acute Assessment and plan: MSSA / treated and asymptomatic. He continues to claim no dysuria or flank pain and no difficulty initiating his stream. however he has had gross hematuria for two days beginning yesterday. I will reculture his urine and get UA w/micro. I will also have Dr. Alvarez from urology see him on Wednesday and get renal and bladder U.S. His CT of his abdomen and pelvis reportedly did not show any pathology of his kidneys, ureteres or bladder and he did not have a olivia during this admission. (3) Type 2 diabetes mellitus: Status: Chronic Assessment and plan: SSI and long acting; adjusing as necessary. (4) Sleep apnea: Assessment and plan: Previous use of CPAP but not currently. PCP planning to set up sleep study. Using CPAP while inpatient. (5) DVT prophylaxis: Status: Acute Assessment and plan: Enoxaparin on hold for procedure tomorrow. SCDs. (6) Abscess of leg, right: Status: Acute Assessment and plan: Abscess of both R and L vastus lateralis muscle. S/P drainage of RLE abscess drainage by IR. Drain in place but is draining minimal amount of serosanguineous fluid. Total of 15 mL all day yesterday. I have nursing discontinue his drainage catheter. See above for antibiotic coverage. (7) Discharge planning issues: Status: Acute Assessment and plan: Full code Continues to require hospitalization For physical therapy, parenteral antibiotic treatment as well as evaluation of his hematuria. Will discharge home with the above who have been completed. Subjective Subjective Interval history since last seen: Patient still complaining of significant bilateral thigh pain and pain in his hips. Patient is concerned that he still does not work with physical therapy and is concerned about his ability to ambulate at home. His brought up a concern that for the last 2 days he has been voiding blood in his urine. Patient saved a urine specimen and clearly he has some blood in the urine. Patient has MSSA bacteremia with initial positive blood cultures from February 05 February 06 and February 07 and finally had negative blood cultures on February 08, 2022. He has bilateral psoas abscesses and is status post IR drainage of the right psoas abscess. Drainage catheter still in the right thigh but now just has serosanguineous fluid. Patient was treated for UTI had MSSA in his urine however he states that until yesterday he had been voiding clear yellow urine and had no gross blood in his urine. Patient was scheduled to return home and continue receiving Ancef 2 g IV every 8 hours for another week. We will get a hold up his discharge over the weekend pending his working with physical therapy to assess his gait and strength and balance. This will also give us time to work-up his hematuria and continue parenteral antibiotics for MSSA. Patient had a transthoracic echocardiogram performed February 09, 2022 that showed normal left ventricular size and function with an EF of 60% with no significant valvular disease and no valvular vegetations. He has a mildly dilated ascending aorta measuring 3.7 cm. Exam Narrative Exam Narrative: Obese male lying in bed in semisolid position talking on cell phone with his Rosenda who is outside hospital. I also spoke with his Rosenda and discussed her concerns. Patient showed me a urine sample that was not a clean-catch midstream void that appears to be somewhat cloudy and pinkish in coloration. Lungs are clear to auscultation Heart regular rate and rhythm no appreciable murmur rub Abdomen is obese soft and slightly distended but nontender. Normal bowel sounds. Lower extremities right thigh has induration around the anterolateral aspect of the thigh extending from the hip to a few centimeters above the knee. The area of previously demarcated erythema has receded. The area was marked with a skin marker and there is obviously been recession in the area of erythema and induration. However still feels firm and is tender to touch. Furthermore with hip flexion and external rotation elicits significant pain. Likewise the left thigh is examined the area of induration is smaller and there is no erythema but is cloth washer back tender over the lateral aspect of the proximal to mid thigh and again there is pain with hip flexion and external rotation. Feet are examined patient has a dry ulcerated callus over the bottom of his first toe on the right foot. There is no purulent drainage. Patient states that his creping machine operator helper Dr. Breen is aware of it and has been following this. I do not see any other openings in the skin over the rest of his right or his left foot. Pedal pulses are intact. Upper extremities were examined. He has a left antecubital IV in place there is no induration or erythema. He has a midline in the right upper arm also with no induration or erythema. Objective Last Vital Signs Temp 35.9 C L 02/14/22 07:43 Pulse 70 02/14/22 07:43 Resp 17 02/14/22 07:43 BP 152/94 H 02/14/22 07:43 Pulse Ox 98 02/14/22 07:43 Laboratory Results - last 24 hr 02/13/22 11:38 Urine Color [place] Urine Clarity Cloudy Urine pH 6.0 Ur Specific [place] 1.020 Urine Protein 30 H Urine Ketones Negative Urine Blood Large H Urine Nitrite Negative Urine Bilirubin Negative Urine Urobilinogen 0.2 Ur Leukocyte Esterase Negative Urine RBC >50 H Urine WBC 0-2 Ur Epithelial Cells Rare Urine Crystals Negative Urine Bacteria Negative Urine Mucus Negative Ur Culture Indicated? No Urine Glucose Negative
--- NOTE | 2022-02-14 09:33 | PT.INIE ---
Date of service: 02/14/22 Time of Service: 11:33 PT Notes Visit Reasons: UTI, Myalgias, Fever, Lactic acidosis Physical Therapy Inpatient Initial Evaluation Date: 02/14/2022 Referring Doctor: Navneet Murillo MD PT Orders: PT CONSULT: Eval and treat Precautions: Fall. Standard. WBAT on B LE with AD. Patient Profile/Admitting Diagnosis:? Lino is a [id number] male who presented to the ED on 02/04/22 for generalized fatigue, nausea, vomiting, and a dry cough for the last several days. He was discharged home then returned back to the ER the following afternoon for same complaint. He had a fall on at home prior to admission which caused him to land on his R hip. Patient is diagnosed with MSSA bacteremia, urinary tract infection, type II DM, sleep apnea, and abscess of the right and left leg status post drainage of the right leg abscess with drain in place. PMHX: All Active Problems?(Updated 02/06/22 @ 09:30 by John Geronimo) Type 2 diabetes mellitus (Chronic) Myalgia (Acute) Viral gastroenteritis (Acute) UTI (urinary tract infection) (Acute) Cough (Acute) Fever (Acute) High blood pressure (Chronic) Headache (Acute) Hyperglycemia (Acute) Viral illness (Acute) Contusion of hip, right (Acute) Acute pyelonephritis (Acute) Fever (Acute) Bilateral hip pain (Acute) Low back pain (Acute) Achilles rupture, left (Acute) Plantar fascial fibromatosis (Acute) Tendonitis, Achilles, right (Acute) Syncope (Chronic) Bronchial pneumonia (Acute) Sexual dysfunction (Acute) Cough (Acute) Preventative health care (Acute) Tinea pedis (Acute) Night sweats (Acute) Diabetic peripheral neuropathy (Acute) Neck pain, chronic (Acute) Diabetic retinopathy, background (Acute) Overweight (Acute) Herpes, genital (Acute) Depression (Chronic) Hypertension (Chronic) Subcutaneous mass of right foot (Acute) plantar aspect Medical History? Diabetes Sleep apnea does not use device Surgical History? H/O arthroscopic knee surgery History of nasal surgery Hx of arthroscopy of shoulder Hx of elbow surgery torn tendonHx of wisdom tooth extraction Social History/Home Situation: Lives with spouse in single level home, ramp to enter. Independent at baseline without AD. 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 Equipment Owned/DME: Wheelchair, 4WW, bedside commode Subjective:? Agreeable to PT consult. Anxious about how he is going to manage at home with persistent pain during transfers and ambulation. Fell once in the past 12 months which contribited to this admission. Objective:? General Observation: Resting in bed. Drain in place in R thigh. IV through L UE. Mental Status: A&O x3 Pain: 6/10 thigh pain at rest, 9-10/10 with movement transitions and weight bearing ROM: Right Upper Extremity: Shoulder Flexion WFL. Shoulder abduction WFL. Elbow flexion WFL. Wrist flexion WFL. Opening and closing of hand WFL. Left Upper Extremity: Shoulder Flexion WFL. Shoulder abduction WFL. Elbow flexion WFL. Wrist flexion WFL. Opening and closing of hand WFL. Right Lower Extremity: Hip flexion to 80 degrees in supine. Hip abduction 20 degrees in supine, gravity eliminated. Knee flexion allows up to 90 degrees in supine. Knee extension WFL. Ankle dorsiflexion WFL. Ankle plantarflexion WFL. Left Lower Extremity: Hip flexion to 100 degrees in supine. Hip abduction 30 degrees in supine, gravity eliminated. Knee flexion allows up to 90 degrees in supine. Knee extension WFL. Ankle dorsiflexion WFL. Ankle plantarflexion WFL. Strength: Right Upper Extremity: Shoulder flexors 5/5. Shoulder abductors 5/5. Elbow flexors 5/5. Elbow extensors 4+/5. Professor Of Exercise Science strong. Left Upper Extremity: Shoulder flexors 5-/5. Shoulder abductors 5/5. Elbow flexors 5/5. Elbow extensors 4+/5. Professor Of Exercise Science strong. Right Lower Extremity: Hip flexors 3-/5. Knee flexors 4/5. Knee extensors 4-/5. Ankle dorsiflexors 5/5. Ankle plantar flexors 5/5. Left Lower Extremity: Hip flexors 3-/5. Knee flexors 4/5. Knee extensors 4-/5. Ankle dorsiflexors 5/5. Ankle plantar flexors 5/5. Sensation:?Intact as to pain and pressure on bilateral lower extremities. Bed Mobility/Transfers: Supine to sit: Standby assist Sit to supine: Standby assist Sit to stand: Standby assist Stand to sit: Standby assist Gait:? Level surface ambulation 100 feet using front wheeled walker with step to gait pattern with report of 2 9?10/10 pain in bilateral thighs with the right hip and thigh more than the left. No loss of balance. No shortness of breath that subsided with rest. Hip flexion limited during limb advancement. Balance:? Static Sitting: Normal Dynamic Sitting: Normal Static Standing: Fair Dynamic Standing: Fair Special Tests: Mobility Limitations Standardized Measure [facility]-PAC 6 clicks Basic Mobility Inpatient Short Form: Raw Score: 23 ? CMS Score: 11% Informed Consent/Education:?Patient instructed in purpose of PT consult and plan of care. ASSESSMENT: Lino demonstrates functional mobility decline due to persistent bilateral hip and thigh pain requiring the use of a front wheeled walker for all transfers and ambulation test performance. The distance he covered during mobility assessment is far more than he is going to walk at home. He will require home health physical therapy services for a week or 2 and then transition to outpatient PT services for continued rehabilitation of bilateral quadriceps muscles to facilitate return to work. Patient presents with clinical signs and symptoms consistent with current/admitting diagnoses that have resulted to mobility limitations, gait instability, generalized weakness, and impairment of motor control as demonstrated by the following impairment level findings: 1. Decreased strength to proximal LE major muscle groups 2. Impaired standing balance 3. Impaired activity tolerance 4. Limitation of joint range of motion in hip flexors, knee extension Impairments are contributing to the following functional limitations: 1. Dependent bed mobility skills 2. Increased dependence with transfers 3. Inability to safely ambulate without assistive device and physical assistance 4. Increase completion time for mobility ADL performance 5. Increased fall risk 6. Inability to negotiate steps alone safely Patient is assessed as a 35870 moderate complexity based on the following: History: 51 year old male with impairment level findings, functional limitations, and past medical history as indicated above Examination: Demonstrable impairment in strength, balance, and mobility level with underlying impairments and functional limitations as documented above Presentation: Stable Decision Makin moderate complexity Goals: Goals x1 week 1. Supine-Sit: independent 2. Sit-Supine: independent 3. Sit-Stand: independent 4. Stand-Sit: independent 5. Bed-Chair: independent 6. Chair-Bed: independent 7. Independent gait on level surface with use of least restrictive device for at least 100 feet without report of pain nor dyspnea 8. Good static and dynamic standing balance/tolerance Plan of Care/Treatment Plan: 1-2x/day, 7 days/week x 1 week. Plan of care has been reviewed with the TUBE ROLLER providing the service under Physical Therapy direction. Initiate Physical Therapy intervention for strengthening, bed mobility, transfers, gait, stairs, balance training, and use of assistive device. DISCHARGE RECOMMENDATIONS: [] Home with no services [] [X] Home with services. Home when medically cleared by hospitalist. Patient will benefit from home health PT services in order to progress mobility level using least restrictive assistive ambulatory device, assess home safety, identify additional equipment needs, and establish a functional maintenance program that will increase ability of patient to remain at home. [] Home with outpatient PT [] [] SNF for continued rehabilitation [] [] Nursing Home Care [] [] SNF versus LTC based on ability to participate and progress [] [X] patient will benefit from the use of a front wheeled walker to maximize independence and reduce fall risk at home. TREATMENT CODE/TIME: 00240 x 20 minutes, 15077 x 38 minutes beginning at 9:33 AM. Thank you for the opportunity to participate in the care of this patient. Ilsa Judd PT, DPT, CLT [facility] [place], [place]
[2022-02-14 10:06] LABS: Bilirubin Negative (Negative); Blood Large (Negative); Clarity Clear (Clear); Glucose Negative (Negative); Ketones Negative (Negative); Leukocyte Esterase Negative (Negative); Nitrite Negative (Negative); Specific Gravity 1.015 (1.005-1.025); Urobilinogen 0.2 EU/dL (Up TO 0.2)
[2022-02-14 10:12] LABS: Bacteria Few HPF (Negative); C & S Indicated? C&S Done As Ordered; Casts Negative LPF (Negative); Crystals Negative HPF (Negative); Epithelial Cells Negative HPF (Negative); Mucus Trace (Negative); RBC >50 HPF (0-2)
[2022-02-14 11:33] VITALS: BP 127/80; PULSE 73; RESP 15; TEMP 36.7; O2SAT 98
[2022-02-14 15:24] VITALS: BP 130/84; PULSE 69; RESP 15; TEMP 36.2; O2SAT 99
[2022-02-14] MEDS: Normal Saline Flush 10 ML SYR IVP ×2 (21:51→22:07)
[2022-02-14] MEDS: Insulin Aspart 300 UNITS/3 ML PEN SC (22:00)
[2022-02-14] MEDS: Zolpidem 5 MG TAB PO (22:06)
[2022-02-14 23:31] VITALS: BP 134/82; PULSE 66; RESP 16; TEMP 36.3; O2SAT 97
[2022-02-15] MEDS: Acetaminophen 500 MG TAB 1000 MG PO ×3 (05:44→22:17)
[2022-02-15] MEDS: ceFAZolin 2 GM/50 ML BAG IVPB ×3 (05:44→22:17)
[2022-02-15 06:24] LABS: Platelet Count 271 10^3/uL (130-400)
[2022-02-15 06:36] VITALS: BP 143/91; PULSE 75; RESP 16; TEMP 37.4; O2SAT 96
[2022-02-15] MEDS: amLODIPine 5 MG TAB 10 MG PO (07:55)
[2022-02-15] MEDS: Docusate Sodium 100 MG CAP PO ×2 (07:55→20:51)
[2022-02-15] MEDS: Gabapentin 300 MG CAP 600 MG PO ×3 (07:55→20:50)
[2022-02-15] MEDS: Cyanocobalamin 500 MCG TAB 1000 MCG PO (07:55)
[2022-02-15] MEDS: diazePAM 5 MG TAB PO ×3 (07:56→20:51)
[2022-02-15] MEDS: Magnesium Oxide 400 MG TAB 200 MG PO (07:56)
[2022-02-15] MEDS: valACYclovir 500 MG TAB PO ×2 (07:56→20:51)
[2022-02-15] MEDS: Omeprazole 20 MG CAPCR PO (07:57)
[2022-02-15] MEDS: Losartan 50 MG TAB 100 MG PO (07:57)
[2022-02-15] MEDS: Polyethylene Glycol 3350 17 GM PACKET PO (07:57)
[2022-02-15] MEDS: Insulin Aspart 300 UNITS/3 ML PEN SC ×4 (07:57→22:20)
[2022-02-15] MEDS: Sertraline 50 MG TAB PO (07:57)
[2022-02-15] MEDS: traMADol 50 MG TAB PO (12:25)
--- NOTE | 2022-02-15 15:01 | W.PM.PROGNOT ---
Date of Service Date of service: 02/15/22 Time of Service: 15:01 Assessment and Plan Assessment and plan (1) MSSA bacteremia: Status: Acute Assessment and plan: 02/05: 1 blood culture bottle/4 positive 02/06: 1 bottle/4 positive for GPCs, speciation/sensitive to cipro, gentamicin, dapto, erythromycin, oxacillin, vanco 02/07: blood cultures with MSSA ID'd. 2 of 4 bottles cultures positive 02/08: blood cultures negative x 120 hrs MRI bilateral proximal legs: 5.7 cm abscess in the proximal right vastus lateralis muscle. 4.2 cm abscess in the distal left vastus lateralis muscle. US of bilateral proximal legs: left thigh, there is a 2.9 x 0.6 x 3.5 cm intramuscular fluid collection.? right thigh, there is a 5 x 1.3 x 3.1 cm intramuscular fluid collection Echo: Normal left ventricular wall thickness and chamber size.? Estimated ejection fraction is 60%.? Wall motion is normal The right ventricle is not well visualized Both atria are normal in size There is no structural or hemodynamically significant valvular disease No valvular vegetations were identified Mildly dilated ascending aorta measuring 3.73 cm Antibiotic coverage changed to Cefazolin 2 gr Q8H since 02/08 but prior coverage w/ Rocephin and oxacillin. patient and his still concened over hematuria and I have explained that he had MSSA in his urine and may have a cytstitis w/ a lot of inflammation of the bladder leading to heamturia. Nevertheless, I have repeat his urine culture, ordered renal and bladder US and requested urology consult for tomorrrow. (2) Abscess of leg, right: Status: Acute Assessment and plan: Abscess of both R and L vastus lateralis muscle. S/P drainage of RLE abscess drainage by IR. Drain in place but is draining minimal amount of serosanguineous fluid. Total of 15 mL all day yesterday. I have nursing discontinue his drainage catheter. See above for antibiotic coverage. (3) Hematuria: Status: Acute Assessment and plan: Work-up as above Qualifiers: Hematuria type: gross Qualified Code(s): R31.0 - Gross hematuria (4) UTI (urinary tract infection): Status: Acute Assessment and plan: MSSA / treated and asymptomatic. He continues to claim no dysuria or flank pain and no difficulty initiating his stream. however he has had gross hematuria for two days beginning yesterday. I will reculture his urine and get UA w/micro. I will also have Dr. Alvarez from urology see him on Wednesday and get renal and bladder U.S. His CT of his abdomen and pelvis reportedly did not show any pathology of his kidneys, ureteres or bladder and he did not have a olivia during this admission. Qualifiers: Urinary tract infection type: acute cystitis Hematuria presence: with hematuria Qualified Code(s): N30.01 - Acute cystitis with hematuria (5) Type 2 diabetes mellitus: Status: Chronic Assessment and plan: SSI and long acting; adjusing as necessary. (6) Sleep apnea: Assessment and plan: Previous use of CPAP but not currently. PCP planning to set up sleep study. Using CPAP while inpatient. Qualifiers: Sleep apnea type: obstructive Qualified Code(s): G47.33 - Obstructive sleep apnea (adult) (pediatric) (7) DVT prophylaxis: Status: Acute Assessment and plan: Enoxaparin was placed on hold on 02/07 but was discontinued on 02/14. He received a total of 2 doses of enoxaparin on 4?7, and again on 4?8. (8) Discharge planning issues: Status: Acute Assessment and plan: Full code Continues to require hospitalization For physical therapy, parenteral antibiotic treatment as well as evaluation of his hematuria. Will discharge home with the above who have been completed. Subjective Subjective Interval history since last seen: Patient was seen with his present at the time of my visit this afternoon. Patient still has discomfort in his legs but he is now ambulating on his own and not requiring any assistance. Physical therapy has cleared him to return home. Both he and his are still concerned that he is having hematuria when he voids. Repeat urine culture is pending at this time. I explained to his and to the patient that we will go to have urology see him tomorrow as well as get follow-up ultrasound of his kidneys and bladder. I will review his medication record with the pharmacist and see if any of the antibiotics could have caused this hematuria. His expressed concern that he has been on different antibiotics and she seems to associate hematuria with the change from amoxicillin to Ancef. Exam Narrative Exam Narrative: Middle aged white male sitting up in his chair no acute distress. Lungs: clear Heart: RRR Abdomen: soft, nondistended, nontender; no suprapubic tenderness Flank w/out CVA tenderness Legs: no erythema;areas of induration over right and left lateral thighs is softer now but still mildly tender Objective Last Vital Signs Temp 37.4 C 02/15/22 06:36 Pulse 75 02/15/22 06:36 Resp 16 02/15/22 06:36 BP 143/91 H 02/15/22 06:36 Pulse Ox 96 02/15/22 06:36 Laboratory Results - last 24 hr 02/15/22 05:45 Plt Count 271 Reviewed Pertinent PMH: Yes
[2022-02-15 15:17] VITALS: BP 135/85; PULSE 67; RESP 16; TEMP 36; O2SAT 98
[2022-02-15] MEDS: Zolpidem 5 MG TAB PO (22:17)
[2022-02-15 22:56] VITALS: BP 144/88; PULSE 84; RESP 16; TEMP 36.7; O2SAT 97
--- NOTE | 2022-02-16 | DI.CT_ITS ---
Exam(s) CT LOWER EXTREMITY LT W EXAM: CT LOWER EXTREMITY LT W CLINICAL HISTORY: abscess left vastus lateralis. TECHNIQUE: Imaging Protocol: Axial computed tomography images with coronal and sagittal reformatted images were created and reviewed. CONTRAST MATERIAL: Intravenous: Omnipaque 350 Contrast volume:structured data in ml Contrast route:I V - Oral: yes / no COMPARISON: MR MR LOWER EXTREMITY RT WO/W from 02/09/2022 FINDINGS: SOFT TISSUES: There is significant subcutaneous edema throughout the thigh, most evident posterolater ally. There is still a small fluid collection in the vastus lateralis muscle, presently measuring 3. 4 x 0.5 x 2 cm and consistent with probable abscess. This exhibits minimal change from the prior lorenzo dy. There is no radiopaque foreign body. OSSEOUS: No evidence of femur fracture. No evidence of osteomyelitis. However, there is small-moder ate size ipsilateral left knee joint effusion evident. IMPRESSION: Persistent abscess in the left vastus lateralis muscle, allowing for differences in modalities this e xhibits minimal change from the MRI scan of 02/09/2022. In addition, there is prominent subcutaneous edema again noted. In addition, there is an ipsilateral left knee joint effusion. If clinically in dicated this can be tapped to determine if it is septic. No obvious evidence of osteomyelitis. RADIATION DOSE DELIVERED: 503.19mGy.cm Total DLP DATA REPOSITORY: All CT scans at this facility are submitted to the National Radiology Data Registry (NRDR) Dose Index Registry (DIR) with the [employer] (ACR). RADIATION OPTIMIZATION: All CT scans at this facility use at least one of these dose optimization te chniques: automated exposure control; mA and/or kV adjustment per patient size (includes targeted exa ms where dose is matched to clinical indication); or iterative reconstruction.
[2022-02-16 03:15] VITALS: BP 143/84; PULSE 70; RESP 18; TEMP 37.8; O2SAT 98
[2022-02-16] MEDS: Acetaminophen 500 MG TAB 1000 MG PO ×3 (06:03→21:57)
[2022-02-16] MEDS: ceFAZolin 2 GM/50 ML BAG IVPB ×3 (06:03→21:58)
[2022-02-16 06:10] VITALS: BP 115/77; PULSE 61; RESP 16; TEMP 36.8; O2SAT 97
[2022-02-16 06:49] LABS: Abs Immature Grans 0.02 10^3/uL (0.0-0.06); Absolute Basophil Count 0.04 10^3/uL (0.0-0.2); Absolute Eosinophil Count 0.15 10^3/uL (0.0-0.7); Absolute Monocyte Count 0.44 10^3/uL (0.1-0.8); Basophils % 0.7; Eosinophils % 2.6; HCT 37.3 % (40.0-50.0); Immature Grans % 0.3; Lymphocytes % 18.8; MCHC 32.2 % (32.0-36.0); MCV 93.3 fL (80-95); MPV 9.5 fL (8.0-11.0); Monocytes % 7.5; Neutrophils % 70.1; Platelet Count 272 10^3/uL (130-400); RDW 11.9 % (11.8-14.1); RDW-SD 41.3 fL; WBC 5.85 10^3/uL (4.4-10.8)
[2022-02-16 07:09] LABS: Anion Gap 4.7 mmol/L (3-11); BUN 23 mg/dL (7-18); C-Reactive Protein 1.92 mg/dL (0.0-0.3); CO2 32.3 mmol/L (21.0-32.0); CREATININE 1.1 mg/dL (0.70-1.30); Calcium 8.9 mg/dL (8.5-10.1); Chloride 102 mmol/L (98-107); Glucose 142 mg/dL (74-106); Potassium 4.3 mmol/L (3.5-5.1); Sodium 139 mmol/L (136-145)
--- NOTE | 2022-02-16 07:35 | UCONE_ITS ---
Date of service: 02/16/22 Time of Service: 15:30 Assessment and Plan Assessment and plan (1) Hematuria: Status: Acute Assessment and plan: This gentleman certainly has an unusual presentation for his illness. He does not really have any of the usual risk factors for a Staph UTI such as previous urologic instrumentation. In spite of his positive urine culture, he has had no typical UTI symptoms. Because Staph Aureus is such an unusual organism for urinary tract infections in the absence of previous instrumentation, it would not surprise me if the bacteria spread by hematogenous route to the kidneys (which filter roughly 1/4 of the blood flow in the body every minute). Blood and urine cultures from 02/05 both showed the presence of staph aureus. I do not know a way of telling which infection came first. If the infection happened to spread to the urinary tract by hematogenous means, postinfectious glomerulonephritis is certainly a possibility. This is most commonly seen with strep or staph organisms. Regardless of the exact timing of his infectious process, our management remains the same. We treat with antibiotics as dictated by the cultures. If the blood is related to hemorrhagic cystitis from a UTI, the hematuria should resolve on its own within a week. The blood in the urine is generally self-limited, but if it is not, we would have a low threshold for performing cystoscopy to rule out lower urinary tract etiologies for bleeding. If no pathology is identified with cystoscopy or if there is any evidence of renal function impairment, we would need to get nephrology involved. As far as I am aware, postinfectious glomerulonephritis requires a renal biopsy for con firmation. Qualifiers: Hematuria type: gross Qualified Code(s): R31.0 - Gross hematuria History of Present Illness History of Present Illness Chief Complaint: Hematuria Narrative: This is a 51-year-old gentleman who presented to the emergency department with what he thought was viral gastroenteritis. He developed nausea and vomiting while he was at work one day. He was sent home from work and tried to return the following day, but again developed nausea and vomiting. He had a low-grade fever and a dry cough. He took some home Covid tests but no infection was identified. He describes some weakness and fatigue, so much so that he fell while ambulating at home and landed on his right hip. He was seen in the emergency department. His lab work appeared relatively normal. His Covid test was negative. His chest x-ray was unremarkable. A hip x-ray was unremarkable. He was reassured and discharged, but returned to the emergency room about 24 mercedes rs later when his pain worsened and began affecting the left lower extremity as well. At the time of his ER visit, he was not having any dysuria or gross hematuria. Urine and blood cultures both grew staph aureus. A CT of the chest, abdomen and pelvis was performed. No hydronephrosis, stones, perinephric abscess or renal mass was identified. It was presumed that he had a urinary tract infection that spread to the bloodstream. Ultimately, he was found to have bilateral thigh abscess which required drainage and antibiotics. His most recent blood and urine cultures have been unremarkable, but he developed gross painless hematuria about 3 or 4 days ago. I have been asked to see him for this issue. This gentleman does have diabetes, but has never had a urethral catheter. He is not anticoagulated. He is not immunocompromised. He has no history of urinary retention and no prior history of kidney stones or UTIs. He has never been a smoker. He has no history of pesticide/chemical exposure. Review of Systems Narrative: No fevers or chills No vision change or dysphasia Hx diabetes. No thyroid dysfunction No shortness of breath, cough or hemoptysis No chest pain or palpitations No hepatitis, ulcers, jaundice Peripheral neuropathy. No seizures, strokes No bleeding disorders or anemia No gout PFSH All Active Problems (Updated 02/15/22 @ 19:19 by Dixon Greenberg) Hematuria (Acute) Abscess of leg, right (Acute) Abscess of left thigh (Acute) Abscess of right thigh (Acute) MSSA bacteremia (Acute) Bacteremia (Acute) Discharge planning issues (Acute) DVT prophylaxis (Acute) Herniation of intervertebral disc between L5 and S1 (Acute) Pain in both lower extremities (Acute) Type 2 diabetes mellitus (Chronic) Myalgia (Acute) Viral gastroenteritis (Acute) UTI (urinary tract infection) (Acute) Cough (Acute) Fever (Acute) High blood pressure (Chronic) Headache (Acute) Hyperglycemia (Acute) Viral illness (Acute) Contusion of hip, right (Acute) Acute pyelonephritis (Acute) Fever (Acute) Bilateral hip pain (Acute) Low back pain (Acute) Achilles rupture, left (Acute) Plantar fascial fibromatosis (Acute) Tendonitis, Achilles, right (Acute) Syncope (Chronic) Bronchial pneumonia (Acute) Sexual dysfunction (Acute) Cough (Acute) Preventative health care (Acute) Tinea pedis (Acute) Night sweats (Acute) Diabetic peripheral neuropathy (Acute) Neck pain, chronic (Acute) Diabetic retinopathy, background (Acute) Overweight (Acute) Herpes, genital (Acute) Depression (Chronic) Hypertension (Chronic) Subcutaneous mass of right foot (Acute) plantar aspect Medical History Diabetes Sleep apnea does not use device Surgical History H/O arthroscopic knee surgery History of nasal surgery Hx of arthroscopy of shoulder Hx of elbow surgery torn tendon Hx of wisdom tooth extraction Social History Smoking/Tobacco Use Status: Never Smoking risk assessment performed?: Yes Alcohol Intake: current Alcohol Intake frequency: holidays/special occasions only Alcohol type: beer Drug use: Never Substance use type: does not use Current gender identity: male Do you feel safe at home: Yes Do you feel safe in your relationship?: Yes Exam Narrative Exam Narrative: He is seen at his bedside. His is present during the encounter as well. He does not appear septic or toxic His vital signs are documented elsewhere in the chart His abdomen is soft with no peritoneal signs. He has no CVA tenderness He is awake and alert Results Last Vital Signs Temp 36.8 C 02/16/22 06:10 Pulse 61 02/16/22 06:10 Resp 16 02/16/22 06:10 BP 115/77 02/16/22 06:10 Pulse Ox 97 02/16/22 06:10 Labs Result diagrams: 02/17/22 06:10 02/17/22 06:10 Labs: Laboratory Results - last 24 hr 02/16/22 02/16/22 06:18 06:18 WBC 5.85 RBC 4.00 L Hgb 12.0 L Hct 37.3 L MCV 93.3 MCH 30.0 MCHC 32.2 RDW 11.9 Plt Count 272 MPV 9.5 Immature Gran % 0.3 Neutrophils % 70.1 Lymphocytes % 18.8 Monocytes % 7.5 Eosinophils % 2.6 Basophils % 0.7 Nucleated RBC % 0.0 Absolute Neutrophils 4.10 Absolute Lymphocytes 1.10 L Absolute Monocytes 0.44 Absolute Eosinophils 0.15 Absolute Basophils 0.04 Sodium 139 Potassium 4.3 Chloride 102 Carbon Dioxide 32.3 H Anion Gap 4.7 BUN 23 H Creatinine 1.1 Estimated GFR/1.73 m2 >= 60.00 Glucose 142 H Calcium 8.9 C-Reactive Protein 1.92 H Imaging Imaging Studies: I reviewed the CT of the abdomen and pelvis done on 02/05/2022. The study was done with IV contrast. I do not see any evidence of hydronephrosis, renal mass, renal stone, perinephric abscess or bladder lesion.
[2022-02-16] MEDS: amLODIPine 5 MG TAB 10 MG PO (07:37)
[2022-02-16] MEDS: valACYclovir 500 MG TAB PO ×2 (07:37→19:44)
[2022-02-16] MEDS: Magnesium Oxide 400 MG TAB 200 MG PO (07:37)
[2022-02-16] MEDS: Cyanocobalamin 500 MCG TAB 1000 MCG PO (07:37)
[2022-02-16] MEDS: Losartan 50 MG TAB 100 MG PO (07:38)
[2022-02-16] MEDS: Sertraline 50 MG TAB PO (07:38)
[2022-02-16] MEDS: Polyethylene Glycol 3350 17 GM PACKET PO (07:38)
[2022-02-16] MEDS: Docusate Sodium 100 MG CAP PO ×2 (07:38→19:43)
[2022-02-16] MEDS: diazePAM 5 MG TAB PO ×3 (07:38→19:43)
[2022-02-16] MEDS: Gabapentin 300 MG CAP 600 MG PO ×3 (07:38→19:43)
[2022-02-16] MEDS: Omeprazole 20 MG CAPCR PO (07:38)
[2022-02-16] MEDS: Insulin Aspart 300 UNITS/3 ML PEN SC ×3 (07:39→17:48)
--- NOTE | 2022-02-16 09:38 | DI.US_ITS ---
Exam(s) US RENAL EXAM: US RENAL CLINICAL HISTORY: hematuria. TECHNIQUE: Stroud scale, color and spectral Doppler were used. COMPARISON: CT CT ABDOMEN PELVIS WO from 08/05/[address] LOWER EXTREMITY RT W from 02/07/2022 US US OR ANESTHESIA from 02/13/2022 FINDINGS: Renal size in cm: Right: 12 left: 12 Echogenicity: Normal Hydronephrosis: No Cyst or mass: No Nephrolithiasis: No Bladder:Normal Prevoid vol:170 Prostate volume 53 cc IMPRESSION: Negative renal ultrasound. DATA REPOSITORY:
--- NOTE | 2022-02-16 10:54 | PT.INTREAT ---
Date of service: 02/16/22 Time of Service: 10:54 PT Notes Visit Reasons: UTI, Myalgias, Fever, Lactic acidosis Physical Therapy Inpatient Trreatment Note Date: 02/16/2022 Precautions: Fall. Standard.? WBAT on B LE with AD. Subjective:? Understands that he may not need to walk as far as he has been walking at home but hopes to ultimately return to work whenever medically cleared. Objective:? General Observation: Resting in bed.? Drain in place in R thigh.? IV access in L UE. Mental Status: A&O x3 Pain: 6/10 thigh pain with movement transitions and weight bearing. States that the R hip screams at him more during walking Bed Mobility/Transfers: Supine to sit: Standby assist Sit to supine: Standby assist Sit to stand: Standby assist Stand to sit: Standby assist Gait:? Level surface ambulation 240 feet using front-wheeled walker with step-to gait pattern with report of 6/10 pain in bilateral thighs with the right hip and thigh more than the left.? No loss of balance.? Increasing bilateral hip flexion during each limb advancement compared to 02/14/2022. 2 standing rests. Balance:? Static Sitting: Normal Dynamic Sitting: Normal Static Standing: Fair Dynamic Standing: Fair ASSESSMENT: Lino demonstrates functional mobility decline due to persistent bilateral hip and thigh pain requiring the use of a front-wheeled walker for all transfers and ambulation test performance.? He will require home health physical therapy services and then transition to outpatient PT services for continued rehabilitation of bilateral quadriceps muscles to facilitate return to work. DISCHARGE RECOMMENDATIONS: [] ? Home with no services [] [X] ? Home with services.? Home when medically cleared by hospitalist.? Patient will benefit from home health PT services in order to progress mobility level using least restrictive assistive ambulatory device, assess home safety, identify additional equipment needs, and establish a functional maintenance program that will increase ability of patient to remain at home. [] ? Home with outpatient PT [] [] ? SNF for continued rehabilitation [] [] ? [employer] [] [] ? SNF versus LTC based on ability to participate and progress [] [X] patient will benefit from the use of a front wheeled walker to maximize independence and reduce fall risk at home. TREATMENT CODE/TIME: 39151 x 16 minutes beginning at 10:54 AM.
--- NOTE | 2022-02-16 11:50 | PDOC.CMPRO ---
- If Service Date Differs Date of service: 02/16/22 Time of Service: 11:50 Care Management Progress Note S/O: Lino had a consult with Dr. Alvarez today, followed by a renal US. His discharge for Wednesday was postponed due to hematuria. He requires a few additional days of IV ABX, unsure if he will remain at the hospital to finish out the course of ABX vs. discharge home with home IV abx and [facility] RN/PT. A: 51 year old male admitted to [facility] on 02/06/22 for UTI, Myalgias, fever, lactic acidosis P: Lino requires admission for close monitoring, IV abx and further medical work up. Anticipate, Lino will discharge home via private vehicle with . He will require IV ABX X 7 days through [facility] and New [facility] RN, PT. Anticipate he will need follow up appointments with his PCP and urology. CM will continue to support discharge planning needs.
[2022-02-16] MEDS: traMADol 50 MG TAB PO (12:39)
[2022-02-16 15:15] VITALS: BP 143/84; PULSE 70; RESP 18; TEMP 35.8; O2SAT 98
--- NOTE | 2022-02-16 17:41 | W.PM.PROGNOT ---
Date of Service Date of service: 02/16/22 Time of Service: 17:41 Assessment and Plan Assessment and plan (1) MSSA bacteremia: Status: Acute Assessment and plan: Initially had positive B.C. for MSSA and blood cultures remained positive from 02/05 and 02/07 but finally became negative on 02/08 and have remained negative. TTE did not show any vegetations. Urine cultures from 02/05 also grew MSSA. Patient was initially treated w/ Ceftriaxone (02/05 to 02/08) and Vancomycin (02/06 to 02/08) but then was put on oxacillin (02/09 to 02/12) and finally Ancef was started on 410-02/09 and restarted on 02/12 through today. Patient probably needs I&D of his right thigh abscess. He should remain on parenteral antibiotics for at least two weeks and then continue oral antibiotics for another 4 weeks, however, I will discuss w/ I.D. (2) Abscess of leg, right: Status: Acute Assessment and plan: Abscess of both R and L vastus lateralis muscle. S/P drainage of RLE abscess drainage by IR. Drain in place but is draining minimal amount of serosanguineous fluid. Total of 15 mL all day yesterday. I have nursing discontinue his drainage catheter. See above for antibiotic coverage. (3) Abscess of left thigh: Status: Acute Assessment and plan: I spoke w/ [facility] tape controlled machine stitcher IR fellow, Dr. Randolph who reviewed the patient's MRI from last week and feels that the patient needs an updated study and recommends getting CT of the left thigh. Once this is done, he indicated that he will review the film to determine whether or not there is enough fluid to drain (4) Hematuria: Status: Acute Assessment and plan: Work-up as above. I do not feel that this is a glomerulonephritis as he has not had SOO, nor uncontrolled HTN nor edema. Nevertheless this bears watching. Patient did state that his urine appeared to be clearing a bit today. I still think this could just be severe cystitis from the MSSA. Dr. Alvarez's input is appreciated. Renal and bladder U.S. were unremarkable which I conveyed to the patient. Qualifiers: Hematuria type: gross Qualified Code(s): R31.0 - Gross hematuria (5) UTI (urinary tract infection): Status: Acute Assessment and plan: MSSA / treated and asymptomatic. He continues to claim no dysuria or flank pain and no difficulty initiating his stream. however he has had gross hematuria for two days beginning yesterday. I will reculture his urine and get UA w/micro. I will also have Dr. Alvarez from urology see him on Wednesday and get renal and bladder U.S. His CT of his abdomen and pelvis reportedly did not show any pathology of his kidneys, ureteres or bladder and he did not have a olivia during this admission. Qualifiers: Urinary tract infection type: acute cystitis Hematuria presence: with hematuria Qualified Code(s): N30.01 - Acute cystitis with hematuria (6) Type 2 diabetes mellitus: Status: Chronic Assessment and plan: SSI and long acting; adjusing as necessary. (7) Sleep apnea: Assessment and plan: Previous use of CPAP but not currently. PCP planning to set up sleep study. Using CPAP while inpatient. Qualifiers: Sleep apnea type: obstructive Qualified Code(s): G47.33 - Obstructive sleep apnea (adult) (pediatric) (8) DVT prophylaxis: Status: Acute Assessment and plan: Enoxaparin was placed on hold on 02/07 but was discontinued on 02/14. He received a total of 2 doses of enoxaparin on 4?7, and again on 4?8. (9) Discharge planning issues: Status: Acute Assessment and plan: Full code Continues to require hospitalization For physical therapy, parenteral antibiotic treatment as well as evaluation of his hematuria. Will discharge home with the above who have been completed. Subjective Subjective Interval history since last seen: Lino is complaining of incr. pain in his L. thigh. He remains aferile. R. thigh has improved in pain and induration has gone down but L. thigh is still swollen. Exam Narrative Exam Narrative: R. thigh edema and erythema have resolved and it really is not tender to palpation However, left thigh is tender and firm over the lateral aspect of his mid to lower thigh. no redness however Objective Last Vital Signs Temp 36.8 C 02/16/22 06:10 Pulse 61 02/16/22 06:10 Resp 16 02/16/22 06:10 BP 115/77 02/16/22 06:10 Pulse Ox 97 02/16/22 06:10 Laboratory Results - last 24 hr 02/16/22 02/16/22 06:18 06:18 WBC 5.85 RBC 4.00 L Hgb 12.0 L Hct 37.3 L MCV 93.3 MCH 30.0 MCHC 32.2 RDW 11.9 Plt Count 272 MPV 9.5 Immature Gran % 0.3 Neutrophils % 70.1 Lymphocytes % 18.8 Monocytes % 7.5 Eosinophils % 2.6 Basophils % 0.7 Nucleated RBC % 0.0 Absolute Neutrophils 4.10 Absolute Lymphocytes 1.10 L Absolute Monocytes 0.44 Absolute Eosinophils 0.15 Absolute Basophils 0.04 Sodium 139 Potassium 4.3 Chloride 102 Carbon Dioxide 32.3 H Anion Gap 4.7 BUN 23 H Creatinine 1.1 Estimated GFR/1.73 m2 >= 60.00 Glucose 142 H Calcium 8.9 C-Reactive Protein 1.92 H
[2022-02-16] MEDS: Omnipaque 350 MG/ML 100 ML BTL IJ (19:19)
[2022-02-16] MEDS: Normal Saline Flush 10 ML SYR IVP ×2 (19:21→21:58)
--- NOTE | 2022-02-16 19:30 | DI.VRAD_ITS ---
PROCEDURE INFORMATION: Exam: CT Left Lower Extremity With Contrast; Thigh Exam date and time: 02/16/2022 6:54 PM Age: 51 years old Clinical indication: Pain; Thigh; Patient HX: Abscess left vastus lateralis; Additional info: Thigh pain for a week and a half TECHNIQUE: Imaging protocol: CT of the Left lower extremity with intravenous contrast was performed. Exam focused on the thigh. Radiation optimization: All CT scans at this facility use at least one of these dose optimization techniques: automated exposure control; mA and/or kV adjustment per patient size (includes targeted exams where dose is matched to clinical indication); or iterative reconstruction. Contrast material: OMNIPAQUE 350; Contrast volume: 100 ml; Contrast route: INTRAVENOUS (IV); COMPARISON: 1. MR LOWER EXTREMITY LT WO/W 02/09/2022 11:[address] LOWER EXTREMITY RT W 02/07/2022 2:24 PM FINDINGS: Bones/joints: The left femur is intact, without fracture or bony erosion. A mild joint effusion is present in the left knee. Mild narrowing and osteophyte formation noted in the left hip. Soft tissues: A small fluid collection in the vastus lateralis muscle continues, measuring 3.5 x 0.6 x 1.9 cm. Previous measurements 4.2 x 1.5 x 3.1 cm. There is no air within the collection. There are no new loculated collections in the left thigh. Moderate subcutaneous edema is present throughout the thigh, most severe in the posterolateral thigh. IMPRESSION: Continued small abscess or other fluid collection in the left vastus lateralis muscle, improved from previous. Dictated and Authenticated by: Colin Alvarez MD. [facility] Dionicio Metcalf MD
[2022-02-16 23:08] VITALS: BP 149/84; PULSE 75; RESP 18; TEMP 36.1; O2SAT 96
[2022-02-17] MEDS: ceFAZolin 2 GM/50 ML BAG IVPB ×3 (06:12→21:23)
[2022-02-17] MEDS: Acetaminophen 500 MG TAB 1000 MG PO ×3 (06:12→21:22)
[2022-02-17 06:50] LABS: Abs Immature Grans 0.03 10^3/uL (0.0-0.06); Absolute Basophil Count 0.05 10^3/uL (0.0-0.2); Absolute Eosinophil Count 0.12 10^3/uL (0.0-0.7); Absolute Lymphocyte Count 1.16 10^3/uL (1.2-3.4); Absolute Monocyte Count 0.42 10^3/uL (0.1-0.8); Absolute Neutrophil Count 4.34 10^3/uL (1.2-6.7); Basophils % 0.8; HGB 11.3 g/dL (13.5-17.5); Immature Grans % 0.5; MCH 30.3 pg (27.0-33.0); MCHC 33.2 % (32.0-36.0); MCV 91.2 fL (80-95); MPV 9.9 fL (8.0-11.0); Monocytes % 6.9; Neutrophils % 70.8; Platelet Count 299 10^3/uL (130-400); RBC 3.73 10^6/uL (4.36-5.78); RDW 12.2 % (11.8-14.1); RDW-SD 40.7 fL; WBC 6.12 10^3/uL (4.4-10.8)
[2022-02-17 06:53] LABS: ESR 50 mm/hr (0-15)
[2022-02-17 06:57] LABS: Anion Gap 5.8 mmol/L (3-11); BUN 23 mg/dL (7-18); CO2 30.2 mmol/L (21.0-32.0); Chloride 102 mmol/L (98-107); Glucose 169 mg/dL (74-106); Potassium 4.3 mmol/L (3.5-5.1); Sodium 138 mmol/L (136-145)
[2022-02-17 07:04] LABS: ALT 13 U/L (16-63); AST 18 U/L (15-37); Albumin 2.7 g/dL (3.4-5.0); Alkaline Phosphatase 70 U/L (46-116); Bilirubin, Direct < 0.1 mg/dL (0.0-0.2); Bilirubin, Total 0.2 mg/dL (0.2-1.0); Total Protein 6.8 g/dL (6.4-8.2)
[2022-02-17 07:10] VITALS: BP 132/87; PULSE 74; RESP 17; TEMP 36.3; O2SAT 98
[2022-02-17] MEDS: Losartan 50 MG TAB 100 MG PO (07:50)
[2022-02-17] MEDS: Docusate Sodium 100 MG CAP PO ×2 (07:50→19:37)
[2022-02-17] MEDS: diazePAM 5 MG TAB PO ×3 (07:50→19:38)
[2022-02-17] MEDS: Insulin Aspart 300 UNITS/3 ML PEN SC ×3 (07:50→21:24)
[2022-02-17] MEDS: Omeprazole 20 MG CAPCR PO (07:50)
[2022-02-17] MEDS: Sertraline 50 MG TAB PO (07:50)
[2022-02-17] MEDS: Cyanocobalamin 500 MCG TAB 1000 MCG PO (07:51)
[2022-02-17] MEDS: Gabapentin 300 MG CAP 600 MG PO ×3 (07:51→19:37)
[2022-02-17] MEDS: Magnesium Oxide 400 MG TAB 200 MG PO (07:51)
[2022-02-17] MEDS: Polyethylene Glycol 3350 17 GM PACKET PO (07:51)
[2022-02-17] MEDS: valACYclovir 500 MG TAB PO ×2 (07:51→19:37)
[2022-02-17] MEDS: amLODIPine 5 MG TAB 10 MG PO (07:51)
--- NOTE | 2022-02-17 09:28 | PGE_ITS ---
Date of Service Date of service: 02/17/22 Time of Service: 09:28 Assessment and Plan Assessment and plan (1) MSSA bacteremia: Status: Acute Assessment and plan: Initially had positive B.C. for MSSA and blood cultures remained positive from 02/05 and 02/07 but finally became negative on 02/08 and have remained negative. TTE did not show any vegetations. Urine cultures from 02/05 also grew MSSA. Patient was initially treated w/ Ceftriaxone (02/05 to 02/08) and Vancomycin (02/06 to 02/08) but then was put on oxacillin (02/09 to 02/12) and finally Ancef was started on 410-02/09 and restarted on 02/12 through today. Per [facility] IR radiologist, Dr. Castellano, the IR team reviewed his CT of his left leg and have determined that there is not enough pocket of fluid to drain. I have placed a call to [facility] infectious disease for a call back to have a telephone consultation with an ID doctor to discuss optimal length of treatment for his MSSA bacteremia and bilateral thigh abscesses as well as to discuss whether to pursue TETO. Once his questions have been settled the patient can be discharged home. (2) Abscess of leg, right: Status: Acute Assessment and plan: Abscess of both R and L vastus lateralis muscle. Right thigh abscess is markedly improved. No tenderness to palpation and no induration and no redness. Drainage catheter was removed over the weekend. (3) Abscess of left thigh: Status: Acute Assessment and plan: Discussion with IR radiologist from [facility] as noted above. Left thigh abscess has decreased in size. Per V rad's reading last night the left vastus lateralis muscle fluid collection is decreased to 3.5 cm x 0.6 cm x 1.9 cm from his previous values of 4.2 x 1.5 x 3.1 cm. (4) Hematuria: Status: Acute Assessment and plan: Work-up as above. I do not feel that this is a glomerulonephritis as he has not had SOO, nor uncontrolled HTN nor edema. Nevertheless this bears watching. Patient did state that his urine appeared to be clearing a bit today. I still think this could just be severe cystitis from the MSSA. Dr. Alvarez's input is appreciated. Renal and bladder U.S. were unremarkable which I conveyed to the patient. Awaiting complement levels. Urinalysis yesterday only showed trace of protein. Blood pressure has not been uncontrolled. If he has normal complement levels and this would go against glomerulonephritis. Qualifiers: Hematuria type: gross Qualified Code(s): R31.0 - Gross hematuria (5) UTI (urinary tract infection): Status: Acute Assessment and plan: MSSA grew in his urine culture. Question whether this was the primary source of his infection with this also entered into his urine through kidney damage. Qualifiers: Urinary tract infection type: acute cystitis Hematuria presence: with hematuria Qualified Code(s): N30.01 - Acute cystitis with hematuria (6) Type 2 diabetes mellitus: Status: Chronic Assessment and plan: SSI and long acting; adjusing as necessary. (7) Sleep apnea: Assessment and plan: Previous use of CPAP but not currently. PCP planning to set up sleep study. Using CPAP while inpatient. Qualifiers: Sleep apnea type: obstructive Qualified Code(s): G47.33 - Obstructive sleep apnea (adult) (pediatric) (8) DVT prophylaxis: Status: Acute Assessment and plan: Enoxaparin was placed on hold on 02/07 but was discontinued on 02/14. He received a total of 2 doses of enoxaparin on 4?7, and again on 4?8. Now using SCDs and will add BESSY hose. (9) Discharge planning issues: Status: Acute Assessment and plan: Possible discharge home later this afternoon or tomorrow morning at the latest pending my conversation with infectious disease. Subjective Subjective Interval history since last seen: Patient states that his urine is clearing this morning. Still has pain in the left thigh but not as severe. Right thigh is feeling markedly better. He remains afebrile. I explained to the patient that I had a discussion with in terventional radiology from [facility] I spoke with Dr. Rhodes who had a discussion with the entire IR team after reviewing the patient's left leg CT scan from last night they feel that the abscess is decreased significantly enough that they would not be able to put a drainage catheter in there. They did indicate potential ability to aspirate it if we need fluid for cultures however at this point we already know the organism. Dr. Rhodes looked up the cultures from the drainage from the right leg and this was growing rare staph aureus. It is MSSA the same as his blood cultures and urine cultures. I also explained to Lino and his whom we called on his cell phone that his discharge is pending my discussion with infectious disease from [facility] to answer 3 questions. #1 how long does hetal need to be on IV antibiotics, #2 when can we switch him to oral antibiotics and what is the duration of his entire antibiotic course that is required, #3 does hetal need a TETO to definitively rule out endocarditis given that his TTE was negative for vegetations and his most recent blood culture showed clearance of the MSSA bacteremia. Once I am able to answer those questions I think we can arrange for him to be discharged home although if he still requires IV antibiotics we will have to reconsult [facility] and arrange home Ancef. Exam Narrative Exam Narrative: He is sitting up in bed in no acute distress. He and I spoke with his over his cell phone and went over the discussion as noted above. Examination of his legs the right thigh no longer has induration or tenderness and no redness. Left thigh still has an area of induration that is few centimeters in length and a couple centimeters wide. There is no redness but there is still some tenderness to the thigh. Pedal pulses are intact. Patient has chronic edema in left foot and ankle secondary to prior Achilles tendon repair. Right foot does not appear edematous. Objective Last Vital Signs Temp 36.3 C L 02/17/22 07:10 Pulse 74 02/17/22 07:10 Resp 17 02/17/22 07:10 BP 132/87 02/17/22 07:10 Pulse Ox 98 02/17/22 07:10 Laboratory Results - last 24 hr 02/17/22 02/17/22 02/17/22 06:10 06:10 06:10 WBC 6.12 RBC 3.73 L Hgb 11.3 L Hct 34.0 L MCV 91.2 MCH 30.3 MCHC 33.2 RDW 12.2 Plt Count 299 MPV 9.9 Immature Gran % 0.5 Neutrophils % 70.8 Lymphocytes % 19.0 Monocytes % 6.9 Eosinophils % 2.0 Basophils % 0.8 Nucleated RBC % 0.0 Absolute Neutrophils 4.34 Absolute Lymphocytes 1.16 L Absolute Monocytes 0.42 Absolute Eosinophils 0.12 Absolute Basophils 0.05 ESR 50 H Sodium 138 Potassium 4.3 Chloride 102 Carbon Dioxide 30.2 Anion Gap 5.8 BUN 23 H Creatinine 1.0 Estimated GFR/1.73 m2 >= 60.00 Glucose 169 H Calcium 9.0 Total Bilirubin Conjugated Bilirubin AST ALT Alkaline Phosphatase Total Protein Albumin 02/17/22 06:10 WBC RBC Hgb Hct MCV MCH MCHC RDW Plt Count MPV Immature Gran % Neutrophils % Lymphocytes % Monocytes % Eosinophils % Basophils % Nucleated RBC % Absolute Neutrophils Absolute Lymphocytes Absolute Monocytes Absolute Eosinophils Absolute Basophils ESR Sodium Potassium Chloride Carbon Dioxide Anion Gap BUN Creatinine Estimated GFR/1.73 m2 Glucose Calcium Total Bilirubin 0.2 Conjugated Bilirubin < 0.1 AST 18 ALT 13 L Alkaline Phosphatase 70 Total Protein 6.8 Albumin 2.7 L Reviewed Pertinent PMH: Yes Objective Narrative Objective Narrative: complement levels are still pending
--- NOTE | 2022-02-17 12:36 | W.PM.PROGNOT ---
Date of Service Date of service: 02/17/22 Time of Service: 12:37 Assessment and Plan Assessment and plan (1) Hematuria: Status: Acute Assessment and plan: We discussed our proposed followup. If his urine clears within a week or so, no cystoscopy should be needed. If the blood persists, we would recommend cystoscopy. If the cysto is normal, we would then refer to nephrology. Qualifiers: Hematuria type: gross Qualified Code(s): R31.0 - Gross hematuria Subjective Subjective Interval history since last seen: His urine is about the same color. He still has no dysuria and his most recent urine culture shows no bacterial growth. Exam Narrative Exam Narrative: He does not appear septic or toxic His vital signs are documented elsewhere He is awake and alert I reviewed yesterday's renal ultrasound on the PACS system. There is no hydronephrosis and no perinephric abscess noted. His most recent urine culture shows no bacterial growth Objective Last Vital Signs Temp 36.3 C L 02/17/22 07:10 Pulse 74 02/17/22 07:10 Resp 17 02/17/22 07:10 BP 132/87 02/17/22 07:10 Pulse Ox 98 02/17/22 07:10 Laboratory Results - last 24 hr 02/17/22 02/17/22 02/17/22 06:10 06:10 06:10 WBC 6.12 RBC 3.73 L Hgb 11.3 L Hct 34.0 L MCV 91.2 MCH 30.3 MCHC 33.2 RDW 12.2 Plt Count 299 MPV 9.9 Immature Gran % 0.5 Neutrophils % 70.8 Lymphocytes % 19.0 Monocytes % 6.9 Eosinophils % 2.0 Basophils % 0.8 Nucleated RBC % 0.0 Absolute Neutrophils 4.34 Absolute Lymphocytes 1.16 L Absolute Monocytes 0.42 Absolute Eosinophils 0.12 Absolute Basophils 0.05 ESR 50 H Sodium 138 Potassium 4.3 Chloride 102 Carbon Dioxide 30.2 Anion Gap 5.8 BUN 23 H Creatinine 1.0 Estimated GFR/1.73 m2 >= 60.00 Glucose 169 H Calcium 9.0 Total Bilirubin Conjugated Bilirubin AST ALT Alkaline Phosphatase Total Protein Albumin 02/17/22 06:10 WBC RBC Hgb Hct MCV MCH MCHC RDW Plt Count MPV Immature Gran % Neutrophils % Lymphocytes % Monocytes % Eosinophils % Basophils % Nucleated RBC % Absolute Neutrophils Absolute Lymphocytes Absolute Monocytes Absolute Eosinophils Absolute Basophils ESR Sodium Potassium Chloride Carbon Dioxide Anion Gap BUN Creatinine Estimated GFR/1.73 m2 Glucose Calcium Total Bilirubin 0.2 Conjugated Bilirubin < 0.1 AST 18 ALT 13 L Alkaline Phosphatase 70 Total Protein 6.8 Albumin 2.7 L
[2022-02-17 14:24] VITALS: BP 117/70; PULSE 71; RESP 17; TEMP 35.5; O2SAT 96
--- NOTE | 2022-02-17 14:40 | PT.INTREAT ---
Date of service: 02/17/22 Time of Service: 10:40 PT Notes Visit Reasons: UTI, Myalgias, Fever, Lactic acidosis Inpatient Physical Therapy Treatment Note [facility] Date: 02/17/2022 PRECAUTIONS: Activity as tolerated, WBAT B SUBJECTIVE: Lino is pleasant and agreeable to participating in PT. He reports that he is feeling a bit better and that he wants to get up and walk today. OBJECTIVE: PAIN: Patient c/o pain in B thighs with gait training and transfers BED MOBILITY/TRANSFERS Sit-stand: S Stand-sit: S GAIT Assistive Device: FWW Weight bearing: WBAT B Assist: S Distance: 600' in a.m.; 800' in p.m. Deviation: Cueing for FWW management for safety, step-through gait pattern, exaggerated B hip flexion ASSESSMENT: Patient tolerated session with c/o B anterior thigh pain with gait training and transfers. He was able to tolerate a progression in gait distance with FWW support and supervision, although requires cueing for FWW management for safety. PLAN: Continue with global strengthening and general conditioning for improved mobility and activity tolerance. TREATMENT CODE/TIME: Session 1: 25 minutes; [id number] x2 (10:40) Session 2: 28 minutes; [id number] x2 (15:34)
--- NOTE | 2022-02-17 14:45 | PDOC.CMPRO ---
- If Service Date Differs Date of service: 02/17/22 Time of Service: 14:45 Care Management Progress Note S/O: Lino requires further medical work up and IV abx. Dr. Greenberg has been in contact with [facility]. Lino may have a down and back to [facility] for a TETO this week, which will help determine the course of IV ABX. CM will continue to support discharge planning needs. A: 51 year old male admitted to [facility] on 02/06/22 for UTI, Myalgias, fever, lactic acidosis P: Lino requires admission for close monitoring, IV abx and further medical work up. Anticipate, Lino will discharge home via private vehicle with . He will require IV ABX X 7 days through [facility] and New [facility] RN, PT. Anticipate he will need follow up appointments with his PCP and urology. CM will continue to support discharge planning needs.
--- NOTE | 2022-02-17 17:40 | INDS_ITS ---
Date of service: 02/17/22 PT Notes Visit Reasons: MSSA bacteremia with bilateral leg abscesses, UTI Physical Therapy Inpatient Discharge Summary Date: 02/17/2022 Precautions: Fall. Standard.? WBAT on B LE with AD. Patient Profile/Admitting Diagnosis:? Lino is a [id number]-csb male who presented to the ED on 02/04/22 for generalized fatigue, nausea, vomiting, and a dry cough for the last several days. He was discharged home then returned back to the ER the following afternoon for same complaint. He had a fall on at home prior to admission which caused him to land on his R hip.? Patient is diagnosed with MSSA bacteremia, urinary tract infection, type II DM, sleep apnea, and abscess of the right and left leg status post drainage of the right leg abscess with drain in place. PMHX: All Active Problems?(Updated 02/06/22 @ 09:30 by John Geronimo) Type 2 diabetes mellitus (Chronic) Myalgia (Acute) Viral gastroenteritis (Acute) UTI (urinary tract infection) (Acute) Cough (Acute) Fever (Acute) High blood pressure (Chronic) Headache (Acute) Hyperglycemia (Acute) Viral illness (Acute) Contusion of hip, right (Acute) Acute pyelonephritis (Acute) Fever (Acute) Bilateral hip pain (Acute) Low back pain (Acute) Achilles rupture, left (Acute) Plantar fascial fibromatosis (Acute) Tendonitis, Achilles, right (Acute) Syncope (Chronic) Bronchial pneumonia (Acute) Sexual dysfunction (Acute) Cough (Acute) Preventative health care (Acute) Tinea pedis (Acute) Night sweats (Acute) Diabetic peripheral neuropathy (Acute) Neck pain, chronic (Acute) Diabetic retinopathy, background (Acute) Overweight (Acute) Herpes, genital (Acute) Depression (Chronic) Hypertension (Chronic) Subcutaneous mass of right foot (Acute) plantar aspect Medical History? Diabetes Sleep apnea does not use device Surgical History? H/O arthroscopic knee surgery History of nasal surgery Hx of arthroscopy of shoulder Hx of elbow surgery torn tendonHx of wisdom tooth extraction Social History/Home Situation: Lives with spouse in single level home, ramp to enter. Independent at baseline without AD. 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 Equipment Owned/DME: Wheelchair, 4WW, bedside commode Subjective:? NT. See most recent HYDRAULIC LIFT DRIVER notes. Objective:? General Observation: NT. See most recent HYDRAULIC LIFT DRIVER notes. Mental Status: NT. See most recent HYDRAULIC LIFT DRIVER notes. Pain: NT. See most recent HYDRAULIC LIFT DRIVER notes. ROM: Right Upper Extremity: Shoulder Flexion WFL. Shoulder abduction WFL. Elbow flexion WFL. Wrist flexion WFL. Opening and closing of hand WFL. Left Upper Extremity: Shoulder Flexion WFL. Shoulder abduction WFL. Elbow flexion WFL. Wrist flexion WFL. Opening and closing of hand WFL. Right Lower Extremity: Hip flexion to 80 degrees in supine. Hip abduction 20 degrees in supine, gravity eliminated. Knee flexion allows up to 90 degrees in supine.? Knee extension WFL.? Ankle dorsiflexion WFL. Ankle plantarflexion WFL. Left Lower Extremity: Hip flexion to 100 degrees in supine. Hip abduction 30 degrees in supine, gravity eliminated. Knee flexion allows up to 90 degrees in supine.? Knee extension WFL.? Ankle dorsiflexion WFL. Ankle plantarflexion WFL. Strength: Right Upper Extremity: Shoulder flexors 5/5. Shoulder abductors 5/5. Elbow flexors 5/5. Elbow extensors 4+/5. Kindergarten Paraprofessional strong. Left Upper Extremity: Shoulder flexors 5-/5. Shoulder abductors 5/5. Elbow flexors 5/5. Elbow extensors 4+/5. Kindergarten Paraprofessional strong. Right Lower Extremity: Hip flexors 3-/5. Knee flexors 4/5. Knee extensors 4-/5. Ankle dorsiflexors 5/5.? Ankle plantar flexors 5/5. Left Lower Extremity: Hip flexors 3-/5. Knee flexors 4/5. Knee extensors 4-/5. Ankle dorsiflexors 5/5.? Ankle plantar flexors 5/5. Sensation:?Intact as to pain and pressure on bilateral lower extremities. Bed Mobility/Transfers: Supine to sit: supervision Sit to supine: supervision Sit to stand: supervision Stand to sit: supervision Gait:? Level surface ambulation 800 feet using front-wheeled walker with step-to gait pattern. No loss of balance.? No shortness of breath that subsided with rest.? Balance:? Static Sitting: Normal Dynamic Sitting: Normal Static Standing: Fair Dynamic Standing: Fair Informed Consent/Education:?Patient instructed in purpose of PT consult and plan of care. ASSESSMENT: Patient demonstrates functional mobility improvement as by mobility level above and goal status below. Goals: Goals x1 week 1. Supine-Sit: independent MET 2. Sit-Supine: independent MET 3. Sit-Stand: independent MET 4. Stand-Sit: independent MET 5. Bed-Chair: independent MET 6. Chair-Bed: independent MET 7. Independent gait on level surface with use of least restrictive device for at least 100 feet without report of pain nor dyspnea MET 8. Good static and dynamic standing balance/tolerance MET DISCHARGE RECOMMENDATIONS: [] ? Home with no services [] [X] ? Home with services.? Home when medically cleared by hospitalist.? Patient will benefit from home health PT services in order to progress mobility level using least restrictive assistive ambulatory device, assess home safety, identify additional equipment needs, and establish a functional maintenance program that will increase ability of patient to remain at home. [] ? Home with outpatient PT [] [] ? SNF for continued rehabilitation [] [] ? [facility] [] [] ? SNF versus LTC based on ability to participate and progress [] [X] patient will benefit from the use of a front wheeled walker to maximize independence and reduce fall risk at home. TREATMENT CODE/TIME: SC Thank you for the opportunity to participate in the care of this patient. Ilsa Judd PT, DPT, CLT [facility] [place], [place]
[2022-02-17] MEDS: Normal Saline Flush 10 ML SYR IVP (21:22)
[2022-02-17 22:57] VITALS: BP 148/88; PULSE 74; RESP 16; TEMP 36.6; O2SAT 96
[2022-02-18] MEDS: traMADol 50 MG TAB PO (03:16)
[2022-02-18] MEDS: Acetaminophen 500 MG TAB 1000 MG PO ×3 (05:31→21:49)
[2022-02-18] MEDS: ceFAZolin 2 GM/50 ML BAG IVPB ×3 (05:32→21:50)
[2022-02-18] MEDS: Normal Saline Flush 10 ML SYR IVP ×5 (05:32→21:50)
[2022-02-18 08:00] VITALS: BP 135/85; PULSE 71; RESP 20; TEMP 36.4; O2SAT 93
[2022-02-18] MEDS: Losartan 50 MG TAB 100 MG PO (08:01)
[2022-02-18] MEDS: Cyanocobalamin 500 MCG TAB 1000 MCG PO (08:01)
[2022-02-18] MEDS: amLODIPine 5 MG TAB 10 MG PO (08:01)
[2022-02-18] MEDS: Sertraline 50 MG TAB PO (08:01)
[2022-02-18] MEDS: Omeprazole 20 MG CAPCR PO (08:01)
[2022-02-18] MEDS: diazePAM 5 MG TAB PO ×3 (08:01→19:30)
[2022-02-18] MEDS: valACYclovir 500 MG TAB PO ×2 (08:01→19:30)
[2022-02-18] MEDS: Gabapentin 300 MG CAP 600 MG PO ×3 (08:01→19:31)
[2022-02-18] MEDS: Docusate Sodium 100 MG CAP PO ×2 (08:02→19:30)
[2022-02-18] MEDS: Magnesium Oxide 400 MG TAB 200 MG PO (08:02)
[2022-02-18] MEDS: Insulin Aspart 300 UNITS/3 ML PEN SC ×4 (08:03→21:51)
[2022-02-18 08:55] LABS: C3 Complement 187 mg/dL (81-157)
--- NOTE | 2022-02-18 09:27 | CMPROGNOTE_ITS ---
- If Service Date Differs Date of service: 02/18/22 Time of Service: 09:27 Care Management Progress Note S/O: Lino requires further medical work up and IV abx. Dr. Greenberg has been in contact with [facility] ID. Lino may have a down and back to [facility] for a TETO this week, which will help determine the course of IV ABX. CM will continue to support discharge planning needs. A: 51 year old male admitted to [facility] on 02/06/22 for UTI, Myalgias, fever, lactic acidosis P: Lino requires admission for close monitoring, IV abx and further medical work up. Anticipate, Lino will discharge home via private vehicle with . He will require IV ABX X 7 days through [facility] and New [facility] RN, PT. Anticipate he will need follow up appointments with his PCP and urology. CM will continue to support discharge planning needs.
--- NOTE | 2022-02-18 09:27 | PDOC.CMPRO ---
- If Service Date Differs Date of service: 02/18/22 Time of Service: 09:27 Care Management Progress Note S/O: Lino requires further medical work up and IV abx. Dr. Greenberg has been in contact with [facility] ID. Lino may have a down and back to [facility] for a TETO this week, which will help determine the course of IV ABX. CM will continue to support discharge planning needs. A: 51 year old male admitted to [facility] on 02/06/22 for UTI, Myalgias, fever, lactic acidosis P: Lino requires admission for close monitoring, IV abx and further medical work up. Anticipate, Lino will discharge home via private vehicle with . He will require IV ABX X 7 days through [facility] and New [facility] RN, PT. Anticipate he will need follow up appointments with his PCP and urology. CM will continue to support discharge planning needs.
[2022-02-18 10:45] LABS: HBs Antibody, Qual Negative (See Note); HBs Antibody, Quant 4.4 mIU/mL (See Note); Hepatitis B Core Antibody Negative (Negative); Hepatitis B surface Ag Negative (Negative); Hepatitis C Ab w Rflx HCV PCR Negative (Negative)
[2022-02-18 16:11] VITALS: BP 121/78; PULSE 78; RESP 20; TEMP 35.7; O2SAT 98
--- NOTE | 2022-02-18 17:05 | CMPROGNOTE_ITS ---
- If Service Date Differs Date of service: 02/18/22 Time of Service: 17:05 Care Management Progress Note Anticipate Lino will discharge home tomorrow or the following day, depending on how long it takes to coordinate his home IV ABX through [facility]. Per Dr. Greenberg he needs more 4 weeks of home IV ABX, through 03/19/22. CM faxed the new order to [facility]. He will also need [facility] RN to help manage his home IV ABX, once approved. CM will arrange.
--- NOTE | 2022-02-18 18:00 | W.PM.PROGNOT ---
Date of Service Date of service: 02/18/22 Time of Service: 18:00 Assessment and Plan Assessment and plan (1) Abscess of leg, right: Status: Acute Assessment and plan: see dc summary from 02/19 (2) Abscess of left thigh: Status: Acute (3) Endocarditis: Status: Suspected Subjective Subjective Interval history since last seen: see dc note from early moning of 02/19 for details. Note that dc note reflects my visit details and phone calls made on 02/18 in attempts to arrange TETO and IR drainage of his thigh abscess. No further details for this note are necessary Exam Narrative Exam Narrative: exam unchanged from 02/17 and note from 02/19 reflects my visit from 02/18 Objective Last Vital Signs Temp 36.5 C 02/20/22 07:33 Pulse 74 02/20/22 07:33 Resp 17 02/20/22 07:33 BP 142/95 H 02/20/22 07:33 Pulse Ox 96 02/20/22 07:33
[2022-02-18] MEDS: LORazepam 2 MG/ML VIAL 1 MG IM (18:01)
[2022-02-18 20:17] LABS: Complement, Total 72 U/mL (30-75)
[2022-02-19] MEDS: traMADol 50 MG TAB PO (01:30)
--- NOTE | 2022-02-19 02:48 | DSE_ITS ---
Date of service: 02/19/22 Time of Service: 02:48 DS: Diagnosis Discharge Diagnosis (1) Endocarditis: Status: Suspected Asessment and Plan: suspected based on multiple blood cultures positive for MSSA. TTE did not show any vegeations.. patient to have outpatient TETO at [facility] in [place], [place] next week. The echo lab will call the patient to schedule date/time. (2) MSSA bacteremia: Status: Acute Asessment and Plan: Positive BC on 02/05, 02/07 but negative on 02/08. Treated w/ Vancomycin and Rocephin initially 02/05 to 02/08 then treated w/ oxacillin 02/09 to 02/12 and finally treated w/ Ancef 02/12 through present. Plan is for 4 to 6 weeks of Ancef from first negative blood culture on 02/08. Patient to have OP TETO at [place], [place] next week. (3) Abscess of left thigh: Status: Acute Asessment and Plan: s/p I&D by IR radiology w/ drainage catheter 02/12; catheter removed on 02/15. wound cultures also positive for MSSA (4) Abscess of right thigh: Status: Acute (5) Type 2 diabetes mellitus: Status: Chronic (6) UTI (urinary tract infection): Status: Acute Asessment and Plan: MSSA bacteruria that followup urine culture from 02/14 was negative. Suspect that this was not the primary site as he had no symptoms of dysuria prior to admission. Susptect hematogenous spread to the kidneys. Renal function remained stable through hospital course. Creatinine remained 1.0 to 1.1 and BUN 20 to 23. complement levels were checked and found to be normal (7) Hematuria: Status: Acute Asessment and Plan: probably secondary to hematogenous spread of bacteremia to kidneys. however may need cystoscopy to be sure no anatomical abnormalities. Patient to follow up w/ Dr. Alvarez Discharge Plan Disposition Patient Disposition: HOME W/HOME HEALTH SERVICE Condition: Improving Discharge Details Reason For Visit: MSSA bacteremia with bilateral leg abscesses, UTI Admit Date/Time: 02/06/22 18:25 Admit Provider: John Geronimo Attending Provider: John Geronimo Primary Care Provider: Jerry Ibrahim Hospital Course Hospital Course: This 51 yr old male w/ PMH of DM2 on insulin, HTN, HLD, s/p L achilles tendon repair in fall of 2020, presented w/ 4 days of nauea, vomting, myalgias, low grade fevers, low back pain and bilateral hip pain and groin pain w/ pain in both thighs. Workup revealed that he had MSSA bacteremia and MSSA cystitis and b ilateral vastus lateralis abscess also growing MSSA. MRI fo LS spine did not show any vertebral osteomyelitis but demonstrated DJD. Xrays of hips was unrevealing. CT of right leg suggested an abscess and MRI of both legs demonstrated bilateral abscess involving the vastus lateralis muscles on each side (R. leg 5.7 cm and L. leg 4.2 cm). TTE showed normal LV function w/out vegetations. Patient was treated initially w/ Vancomycin and Rocephin then switched to oxacillin for a few days before being put on Ancef on 02/12. Blood cultures were positive on 02/05, 02/07 but finally cleared on 02/08. Orthopedic consult was obtained w/ Dr. Moran who recommended IR drainage and appropriate antibiotic coverage. Patient was sent to [facility] interventional radiology on 02/12 for I&D w/ drainage catheter. Wound culture also grew MSSA. Catheter was left in place until 02/15 when it was pulled d/t minimal drainage of serosanguinous fluid (10 mL/24h). Although the patient had microscopic hematuria on admssion labs, he did not develop gross hematuria until 02/14. Although admission CTA of abdomen and pelvis did not show any renal/bladder abnormalities, a renal and bladder US was performed on 02/16 and urology consult was obtained w/ Dr. Alvarez. he felt that it was likely the urinary tract infection had been seed from hematogenous route to the kidneys. He recommended continued treatment of the infection and wa tchful waiting and if the hematuria did not clear up within 1 week then he would recommend cystoscopy and if this was unrevealing then nephrology referral. When the patient continued to have pain and induration in the left mid thigh a CT of the left leg was done on 02/16 and this showed a decr. in size of abscess to 3.4 cm. IR radiology at [facility] was again consulted but after a meeting of the IR team on 02/17 they decided that the abscess was too small to place a drainage catheter. I.D. telephone consult was obtained on 02/17 w/ Dr. Andi Zuniga from [facility], while he could not address specifics on this patient w/out seeing Mr. Ruiz, he did indicate that he would recommend at least 4 wks of iv antibiotics w/ Ancef and probably longer if endocarditis is shown on TETO. He did recommend TETO be performed. [facility] cardiology was consulted on 02/17 however they could not perform a down and back inpatient TETO but offered an outpatient appointment in 3 to 4 weeks. I consulted w/ the echo team at [facility] in [place], [place] and they offered an appointment as outpatient in the next week. They requested an order and H&P and demographic sheet be faxed to them and they would call the patient to make the appointment for next week. Case management facilitiated arrranging outpatient Ancef to be delivered from [facility]. Patient needs a minimum of 4 weeks of antibiotics from his first negative blood culture and probably needs as much as 6 weeks. Proposed end date March 08 if only doing 4 weeks but March 22 if going out to 6 weeks. Patient should have follow up with infectious disease as outpatient and follow up with Dr. Alvarez. Patient received P.T. services to work on his strength and gait. He was ambulating w/ a FWW but he should continue w/ home P.T. and home health nurse to help w/ supervising the patient's on administration of iv antibiotics. He had a midline placed in his right arm on 02/13 but this was exchanged for PICC line on 02/18. Home Meds and New Rx's Prescriptions: No Action magnesium oxide 400 mg (241.3 mg magnesium) tablet 200 mg PO DAILY 0RF losartan-hydrochlorothiazide 100-25 mg tablet 1 tab PO DAILY 0RF tramadol 50 mg tablet 50 mg PO Q6H PRN0RF terazosin 5 mg capsule 5 mg PO QHS 0RF valacyclovir 500 mg tablet 500 mg PO BID 0RF albuterol sulfate [Ventolin HFA] 90 mcg/actuation HFA aerosol inhaler 2 puff IH Q4H PRN0RF Levemir U-100 Insulin 100 unit/mL solution 50 unit SC QHS 0RF sertraline [Zoloft] 50 mg tablet 50 mg PO DAILY 0RF metformin [Glucophage] 1,000 MG tablet 1,000 mg PO BID@0800,1700 0RF gabapentin 300 MG capsule 600 mg PO BID 0RF amlodipine 5 mg tablet 10 mg PO DAILY 0RF ondansetron 4 mg tablet,disintegrating 4 mg PO Q8H PRNQty: 10 0RF Discharge Instructions Instructions: Endocarditis (DC), Sepsis (DC), Bacteremia (DC) Additional Instructions: You have been treated for a bacterial bloodstream infection known as methicillin sensitive staph aureus which infected both of your thighs as well as her kidneys and bladder. It is suspected that you may have endocarditis. A surface echocardiogram did not show any vegetations on your heart valves. However given the fact that the bacteria was found in the muscles in both eyes as well as your bladder and the fact that she had hematuria it is suspected that the source came from elsewhere and quite possibly infected your heart valves. You have been referred to the [facility] cardiology department to have a transesophageal echocardiogram. This is an ultrasound of your heart obtained by placing a probe down your esophagus to obtain ultrasound pictures from the backside of the heart. This is a procedure in which she will be given an anesthetic to facilitate the procedure. The echocardiography department within the cardiology department at the [facility] will call you next week with a date and time for your procedure and they will give you instructions to have a preoperative COVID test performed. Stand Alone Forms: Nursing Discharge Form Referrals: Mariella Ramon [ NON-[facility] STAFF PHYSICIAN] - 02/27/22 1:30 pm Activity:: Activity as Tolerated Equipment/Supplies:: No Equipment Needed Diet:: Carb Counting Discharge Orders Discharge Orders: Discharge Order (Routine); Ordered 02/19/22 Ordered By: Dixon Greenberg DS: Summary Time Spent with Patient providing and/or coordinating discharge services: Greater than 30 minutes Specific discharge activities: Setting up cardiology follow-up, arranging home IV antibiotics, discharge instructions Status at Discharge Functional status at discharge: uses cane/walker Overall status at discharge: patient is progressing back to baseline Mental Status: mental status grossly normal Speech and Movement: speech and movement normal Mood: congruent mood Affect: normal affect Exam Narrative Exam Narrative: Examination of his legs the right thigh no longer has induration or tenderness and no redness. Left thigh still has an area of induration that is few centimeters in length and a couple centimeters wide. There is no redness but there is still some tenderness to the thigh. Pedal pulses are intact. Patient has chronic edema in left foot and ankle secondary to prior Achilles tendon repair. Right foot does not appear edematous. Psych Mental Status: mental status grossly normal Speech and Movement: speech and movement normal Mood: congruent mood Affect: normal affect DS: Data Vitals/I&O Vitals and I&O: Vital Signs Temperature 35.7 C L 02/18/22 16:11 Temperature Source Tympanic 02/18/22 16:11 Pulse 78 02/18/22 16:11 Pulse Rhythm Regular 02/18/22 20:31 Respiratory Rate 20 02/18/22 16:11 Respiratory Effort Non-Labored 02/18/22 20:31 Respiratory Depth Normal 02/18/22 20:31 Respiratory Pattern Normal 02/18/22 20:31 Blood Pressure 121/78 02/18/22 16:11 Blood Pressure Position Supine 02/05/22 16:35 Pulse Oximetry 98 02/18/22 16:11 Oxygen Delivery Method Room Air 02/18/22 16:11 Oxygen Flow Rate 0 02/18/22 16:11 Fraction of Inspired Oxygen (FIO2) 02/18/22 08:33 Pain Level 10 02/19/22 01:30 Comment 02/12/22 23:10 Intake & Output 02/18/22 02/18/22 02/19/22 11:59 23:59 11:59 Intake Total 340 / 930 590 / 930 Output Total 800 / 1100 300 / 1100 Balance -460 / -170 290 / -170 Weight 102.3 kg Intake: IV 100 / 150 50 / 150 Oral 240 / 780 540 / 780 Output: Urine 800 / 1100 300 / 1100 Other: Urine Color Light Altagracia Brown Urine Appearance Clear Clear Urine Odor None Comment pT is indepentdently toileting at this time. Stool Size Moderate Stool Characteristics Formed Voiding Methods Urinal Toilet Data Completed and Pending Labs on day of discharge: Labs from last 24 hours 02/17/22 02/17/22 06:10 06:10 Complement C3 187 H Tot Complement (CH50) 72 Hep Bs Antigen Negative Hep Bs Antibody Negative Hep Bs Antibody, Quant 4.4 Hep B Core Total Ab Negative Hepatitis C Antibody Negative PFSH All Active Problems Hematuria (Acute) Abscess of leg, right (Acute) Abscess of left thigh (Acute) Abscess of right thigh (Acute) MSSA bacteremia (Acute) Bacteremia (Acute) Discharge planning issues (Acute) DVT prophylaxis (Acute) Herniation of intervertebral disc between L5 and S1 (Acute) Pain in both lower extremities (Acute) Type 2 diabetes mellitus (Chronic) Myalgia (Acute) Viral gastroenteritis (Acute) UTI (urinary tract infection) (Acute) Cough (Acute) Fever (Acute) High blood pressure (Chronic) Headache (Acute) Hyperglycemia (Acute) Viral illness (Acute) Contusion of hip, right (Acute) Acute pyelonephritis (Acute) Fever (Acute) Bilateral hip pain (Acute) Low back pain (Acute) Achilles rupture, left (Acute) Plantar fascial fibromatosis (Acute) Tendonitis, Achilles, right (Acute) Syncope (Chronic) Bronchial pneumonia (Acute) Sexual dysfunction (Acute) Cough (Acute) Preventative health care (Acute) Tinea pedis (Acute) Night sweats (Acute) Diabetic peripheral neuropathy (Acute) Neck pain, chronic (Acute) Diabetic retinopathy, background (Acute) Overweight (Acute) Herpes, genital (Acute) Depression (Chronic) Hypertension (Chronic) Subcutaneous mass of right foot (Acute) plantar aspect Medical History Diabetes Sleep apnea does not use device Surgical History H/O arthroscopic knee surgery History of nasal surgery Hx of arthroscopy of shoulder Hx of elbow surgery torn tendon Hx of wisdom tooth extraction Social History Smoking/Tobacco Use Status: Never Smoking risk assessment performed?: Yes Alcohol Intake: current Alcohol Intake frequency: holidays/special occasions only Alcohol type: beer Drug use: Never Substance use type: does not use Current gender identity: male Do you feel safe at home: Yes Do you feel safe in your relationship?: Yes
--- NOTE | 2022-02-19 03:00 | PDOC.HHF2F ---
Home Health Certification Home Health Certification: 1. Encounter Date and Reason I certify that Lino Ruiz was seen by Dixon Greenberg on 02/19/22 and that I had a [id number] encounter with this patient that meets the physician face to face encounter requirements. 2. Clinical Findings Supporting Skilled Need and Homebound Status I certify that home health services are medically necessary, include either intermittent senior care and/or physical/speech therapy, and that this patient is homebound in that absences from the home require considerable and taxing effort and are infrequent or of short duration, or are attributable to the need to receive medical care. [X] (a) Attached documentation from encounter provides clinical findings supporting skilled need and homebound status (including what assistance patient requires to leave the home). The encounter with the patient was in whole, or in part, for the following medical condition, which is the primary reason for home health care: MSSA bacteremia with bilateral leg abscesses, UTI Mcc: correction is needed to assist patient and his and setting up and administering IV antibiotics as well as monitoring his response to treatment. Physical Therapy: Home physical therapy as needed to improve the patient's gait strength and amatory function. Speech Therapy: Homebound: Patient is homebound due to generalized weakness and deconditioning due to recent hospital stay due to MSSA bacteremia. 3. Certification and Authentication I certify that I composed the above information based on my clinical judgement relating to this patient's medical condition and, if applicable, clinical findings communicated to me by the NPP or inpatient physician who performed the Home Health Referral. All further orders will be obtained through Mariella Ramon (Community Based Physician - PCP)
[2022-02-19] MEDS: Acetaminophen 500 MG TAB 1000 MG PO ×3 (05:45→21:41)
[2022-02-19] MEDS: ceFAZolin 2 GM/50 ML BAG IVPB ×3 (05:47→21:41)
[2022-02-19] MEDS: Normal Saline Flush 10 ML SYR IVP ×4 (05:47→20:32)
[2022-02-19 07:32] VITALS: BP 105/86; PULSE 79; RESP 17; TEMP 35.7; O2SAT 97
[2022-02-19 08:28] VITALS: BP 149/94; PULSE 80
[2022-02-19] MEDS: diazePAM 5 MG TAB PO ×3 (08:29→20:31)
[2022-02-19] MEDS: amLODIPine 5 MG TAB 10 MG PO (08:29)
[2022-02-19] MEDS: Cyanocobalamin 500 MCG TAB 1000 MCG PO (08:29)
[2022-02-19] MEDS: Losartan 50 MG TAB 100 MG PO (08:29)
[2022-02-19] MEDS: valACYclovir 500 MG TAB PO ×2 (08:30→20:31)
[2022-02-19] MEDS: Insulin Aspart 300 UNITS/3 ML PEN SC ×4 (08:30→21:41)
[2022-02-19] MEDS: Sertraline 50 MG TAB PO (08:30)
[2022-02-19] MEDS: Docusate Sodium 100 MG CAP PO ×2 (08:30→20:31)
[2022-02-19] MEDS: Omeprazole 20 MG CAPCR PO (08:30)
[2022-02-19] MEDS: Gabapentin 300 MG CAP 600 MG PO ×3 (08:30→20:31)
[2022-02-19] MEDS: Magnesium Oxide 400 MG TAB 200 MG PO (08:30)
--- NOTE | 2022-02-19 14:32 | PDOC.CMPRO ---
- If Service Date Differs Date of service: 02/19/22 Time of Service: 14:32 Care Management Progress Note S/O: Lino was siting up in a chair when CM met with him. During the visit his daughter and arrived and joined in the conversation. Lino had hoped to be discharged home today but [facility] was unable to get the antibiotics delivered today. Additionally, [facility] was unable to do an admission today so the discharge is now planned for tomorrow. Lino was very disappointed and a bit teary because he could not go home and see his dogs. His was frustrated about the delay and was unable to understand the chronology of the orders for the antibiotic and the home health orders. While the plan for home infusions was made several days ago and the orders were faxed to [facility] and [facility] was notified, Lino's condition required an additional few days of hospitalization. All of the orders had to be redone late in the day yesterday when it was clear he was ready for discharge but neither agency was able to provide same day service. A: 51 year old male admitted to [facility] on 02/06/22 for UTI, Myalgias, fever, lactic acidosis P: Lino will discharge home via private vehicle with , likely tomorrow. He will require IV ABX X 7 days through [facility] and [facility] RN, PT. Orders were faxed late in the day yesterday but services were unable to be initiated until tomorrow. Anticipate he will need follow up appointments with his PCP and urology. will continue to support discharge planning needs.
[2022-02-19 14:50] VITALS: BP 130/85; PULSE 84; RESP 17; TEMP 36.2; O2SAT 98
[2022-02-19] MEDS: Zolpidem 5 MG TAB PO (21:47)
[2022-02-19 23:30] VITALS: BP 131/83; PULSE 77; RESP 18; TEMP 36.4; O2SAT 93
[2022-02-20] MEDS: traMADol 50 MG TAB PO ×2 (03:35→09:08)
[2022-02-20] MEDS: ceFAZolin 2 GM/50 ML BAG IVPB (05:07)
[2022-02-20] MEDS: Acetaminophen 500 MG TAB 1000 MG PO (05:07)
[2022-02-20] MEDS: Normal Saline Flush 10 ML SYR IVP ×2 (05:08→08:59)
[2022-02-20 07:33] VITALS: BP 142/95; PULSE 74; RESP 17; TEMP 36.5; O2SAT 96
--- NOTE | 2022-02-20 08:00 | DI.US_ITS ---
Exam(s) US SOFT TISSUE EXTREMITY EXAM: US SOFT TISSUE EXTREMITY CLINICAL HISTORY: LLE - follow up abscess L thigh. TECHNIQUE: Ultrasound was performed using standard protocol. COMPARISON: US US SOFT TISSUE EXTREMITY from 02/10/[address] LOWER EXTREMITY LT W from 02/16/2022 US US RENAL from 02/16/2022 FINDINGS: Sonographic assessment utilizing grayscale and color Doppler imaging was performed and targeted to th e area of clinical concern. There has been interval increase in size of the previously noted abscess of the mid thigh, now measur ing 4 x 0.7 x 2.1 cm compared with 2.9 x 0.6 x 3.5 cm on the previous exam. No new collections ident ified. IMPRESSION: Mild interval increase in size of left thigh abscess. DATA REPOSITORY:
[2022-02-20] MEDS: Polyethylene Glycol 3350 17 GM PACKET PO (08:58)
[2022-02-20] MEDS: Insulin Aspart 300 UNITS/3 ML PEN SC ×2 (08:58→12:16)
[2022-02-20] MEDS: Magnesium Oxide 400 MG TAB 200 MG PO (08:59)
[2022-02-20] MEDS: Docusate Sodium 100 MG CAP PO (09:00)
[2022-02-20] MEDS: diazePAM 5 MG TAB PO (09:00)
[2022-02-20] MEDS: valACYclovir 500 MG TAB PO (09:00)
[2022-02-20] MEDS: Sertraline 50 MG TAB PO (09:00)
[2022-02-20] MEDS: amLODIPine 5 MG TAB 10 MG PO (09:00)
[2022-02-20] MEDS: Cyanocobalamin 500 MCG TAB 1000 MCG PO (09:00)
[2022-02-20] MEDS: Gabapentin 300 MG CAP 600 MG PO (09:01)
[2022-02-20] MEDS: Losartan 50 MG TAB 100 MG PO (09:01)
[2022-02-20] MEDS: Omeprazole 20 MG CAPCR PO (09:01)
--- NOTE | 2022-02-20 11:38 | CMDISCH_ITS ---
- If Service Date Differs Date of service: 02/20/22 Time of Service: 11:39 LACE Index Scoring Tool - Questions: Length of Stay (in days): 14 or more Acuity (Admit via E.D.?): Yes Comorbidities: Diabetes w/o Complication E.D. Visits: 2 - Answers: Total Score: 13 Risk of Readmission: High Risk Care Management Discharge Reason for Hospitalization: UTI, Myalgias, fever, lactic acidosis Discharge Plan: Discharge home with New IV ABX and [facility] RN/PT services. [facility] will admit Lino to services today at 2pm. [facility] will deliver home IV DME prior to that time. Lino will have a TETO at [facility] next week, date/time TBD. He also needs an appointment with [facility] ID. [facility] Echo lab will call pt next week to schedule date/time. In addition, Lino needs an appointment with [facility] for outpatient drainage, order faxed to [facility], appointment date and time to follow. In addition, Lino has a follow up with his PCP 02/27/22 1:30pm and a follow up with Urology on 03/03/22 at 0900. Patient/Family Education Needs: Review discharge instructions, limitations, med ications and plan to follow up with community providers. ask me three. Services Needed at Discharge: DME Agency ([facility], IV ABX), Home Health Care Services ([facility] RN, PT)
--- NOTE | 2022-02-20 11:38 | PDOC.CMDIS ---
- If Service Date Differs Date of service: 02/20/22 Time of Service: 11:39 LACE Index Scoring Tool - Questions: Length of Stay (in days): 14 or more Acuity (Admit via E.D.?): Yes Comorbidities: Diabetes w/o Complication E.D. Visits: 2 - Answers: Total Score: 13 Risk of Readmission: High Risk Care Management Discharge Reason for Hospitalization: UTI, Myalgias, fever, lactic acidosis Discharge Plan: Discharge home with New IV ABX and [facility] RN/PT services. [facility] will admit Lino to services today at 2pm. [facility] will deliver home IV DME prior to that time. Lino will have a TETO at [facility] next week, date/time TBD. He also needs an appointment with [facility] ID. [facility] Echo lab will call pt next week to schedule date/time. In addition, Lino needs an appointment with [facility] for outpatient drainage, order faxed to [facility], appointment date and time to follow. In addition, Lino has a follow up with his PCP 02/27/22 1:30pm and a follow up with Urology on 03/03/22 at 0900. Patient/Family Education Needs: Review discharge instructions, limitations, medications and plan to follow up with community providers. ask me three. Services Needed at Discharge: DME Agency ([facility], IV ABX), Home Health Care Services ([facility] RN, PT)
--- NOTE | 2022-02-20 12:29 | W.PM.PROGNOT ---
Date of Service Date of service: 02/20/22 Time of Service: 12:29 Assessment and Plan Assessment and plan (1) MSSA bacteremia: Status: Acute Assessment and plan: Present on admission, suspected endocarditis. Being discharged home on cefazolin via home health. Has a PICC Will need LLE abscesses drained. TETO referral is at [facility], but it is not yet scheduled. Will need ID follow up - referral sent. (2) Pain in both lower extremities: Status: Acute Assessment and plan: Due to BLE abscesses. RLE pain has resolved post drainage. LLE pain remains - due to an abscess. IR drainage referral sent. Able to ambulate. (3) Endocarditis: Status: Suspected Assessment and plan: TETO referral received at [facility] but it is not yet scheduled. I have discussed with our care management that this will need to be followed up next week. (4) Abscess of left thigh: Status: Acute Assessment and plan: As above. (5) Hematuria: Status: Acute Assessment and plan: evaluated by urology. Glomerulonephritis unlikely - complement levels not consistent with it. F/u as outpatient. Qualifiers: Hematuria type: gross Qualified Code(s): R31.0 - Gross hematuria (6) UTI (urinary tract infection): Status: Resolved Assessment and plan: Due to Staph Aureus, present on admission. On cefazolin. Qualifiers: Urinary tract infection type: acute cystitis Hematuria presence: with hematuria Qualified Code(s): N30.01 - Acute cystitis with hematuria Subjective Subjective Interval history since last seen: The patient remained in our hospital overnight until his abx can be delivered home this afternoon. He denies dizziness, chest pain, shortness of breath, nausea. His LLE is still swollen and painful. US today shows increase in size of his LLE abscess. This was reviewed with [facility] who feel that the patient would be a candidate for drainage of this. Order for outpatient drainage faxed to [facility]. Exam Narrative Exam Narrative: General: Obese male, awake, sitting up in a chair, looks comfortable HEENT: EOMI, MMM Heart: RRR, no m/r/g Lungs: CTAB Abdomen: soft, nontender, nondistended Extremities: lateral L thigh fluid collection appears bigger; no erythema. Objective Last Vital Signs Temp 36.5 C 02/20/22 07:33 Pulse 74 02/20/22 07:33 Resp 17 02/20/22 07:33 BP 142/95 H 02/20/22 07:33 Pulse Ox 96 02/20/22 07:33 Objective Narrative Objective Narrative: US soft tissues LLE: Sonographic assessment utilizing grayscale and color Doppler imaging was performed and targeted to the area of clinical concern. There has been interval increase in size of the previously noted abscess of the mid thigh, now measuring 4 x 0.7 x 2.1 cm compared with 2.9 x 0.6 x 3.5 cm on the previous exam.? No new collections identified
== END 2022-02-20 13:17 | disposition home health service (06) | DRG 307 ==
LOC: ER 19:10 → MS 20:52
PROVIDERS: Family Medicine; General Practice; Internal Medicine; Nurse Practitioner Family; Admitting Provider Family Medicine; Emergency Provider Physician Assistant; PCP Internal Medicine; Visit Provider Family Medicine
DX: I38 Endocarditis, valve unspecified (principal); N30.01 Acute cystitis with hematuria; M60.003 Infective myositis, unspecified right leg; R78.81 Bacteremia; M60.004 Infective myositis, unspecified left leg; E66.9 Obesity, unspecified; Z68.33 Body mass index [BMI] 33.0-33.9, adult; I10 Essential (primary) hypertension; M25.552 Pain in left hip; M25.551 Pain in right hip; M51.27 Other intervertebral disc displacement, lumbosacral region; E11.42 Type 2 diabetes mellitus with diabetic polyneuropathy; F32.A Depression, unspecified; A08.4 Viral intestinal infection, unspecified; W01.0XXA Fall on same level from slipping, tripping and stumbling without subsequent striking against object, initial encounter; R53.1 Weakness; N40.0 Benign prostatic hyperplasia without lower urinary tract symptoms; B95.61 Methicillin susceptible Staphylococcus aureus infection as the cause of diseases classified elsewhere; G47.33 Obstructive sleep apnea (adult) (pediatric)
CPT/HCPCS: 36410; 36415; 36569; 71275; 73552; 74177; 76770; 76881; 76942; 80048; 80053; 80076; 82550; 82805; 84145; 85027; 85652; 86704; 86706; 86803; 87040; 87077; 87340; 87637; 87798; 96361; 96365; 96367; 96375; 97110; 97161; 97162; 97530; 99285; J1650; 72148; 73502; 73701; 73720; 80202; 81003; 81015; 82607; 83036; 83605; 83735; 84443; 84484; 85025; 85049; 86140; 86160; 86162; 86618; 87086; 87186; 93306; 93970; 94660; 99220; 99232; 99233; 99238; G0378; J0131; J0690; J0696; J1170; J1885; J2060; J2700; J3490; J7042; J7512; J8597

== ENCOUNTER 2022-02-24 14:04 | Outpatient (REF) | payer BC, SELFPAY ==
[2022-02-24 14:58] LABS: Abs Immature Grans 0.01 10^3/uL (0.0-0.06); Absolute Basophil Count 0.05 10^3/uL (0.0-0.2); Absolute Eosinophil Count 0.16 10^3/uL (0.0-0.7); Absolute Lymphocyte Count 1.28 10^3/uL (1.2-3.4); Absolute Neutrophil Count 2.73 10^3/uL (1.2-6.7); Basophils % 1.1; Eosinophils % 3.5; HCT 37.8 % (40.0-50.0); HGB 12.6 g/dL (13.5-17.5); Immature Grans % 0.2; Lymphocytes % 27.6; MCH 30.1 pg (27.0-33.0); MCHC 33.3 % (32.0-36.0); MCV 90.4 fL (80-95); MPV 10.4 fL (8.0-11.0); Monocytes % 8.6; Platelet Count 241 10^3/uL (130-400); RBC 4.18 10^6/uL (4.36-5.78); RDW 12.9 % (11.8-14.1); RDW-SD 41.1 fL; WBC 4.63 10^3/uL (4.4-10.8)
[2022-02-24 15:04] LABS: Anion Gap 6.9 mmol/L (3-11); BUN 15 mg/dL (7-18); CO2 31.1 mmol/L (21.0-32.0); CREATININE 0.9 mg/dL (0.70-1.30); Chloride 102 mmol/L (98-107); Glucose 120 mg/dL (74-106); Potassium 4.4 mmol/L (3.5-5.1); Sodium 140 mmol/L (136-145)
== END 2022-02-24 14:05 | disposition home or self-care (01) ==
LOC: LBN 14:04
PROVIDERS: PCP Internal Medicine; Visit Provider Internal Medicine
DX: R78.81 Bacteremia (principal)
CPT/HCPCS: 80048; 85025

== ENCOUNTER 2022-02-27 13:57 | Outpatient (REF) | payer BC, SELFPAY ==
[2022-02-27 14:06] LABS: Source Nasal/Nares
[2022-02-27 17:28] LABS: COVID-19 PCR Negative (Negative)
== END 2022-02-27 13:58 | disposition home or self-care (01) ==
LOC: NCHCN 13:57
PROVIDERS: PCP Internal Medicine; Visit Provider Family Medicine
DX: Z20.822 Contact with and (suspected) exposure to COVID-19 (principal); Z01.818 Encounter for other preprocedural examination
CPT/HCPCS: 87635

== ENCOUNTER 2022-03-03 19:10 | Outpatient (REF) | payer BC, SELFPAY ==
[2022-03-03 13:05] LABS: ESR 17 mm/hr (0-15)
[2022-03-03 13:06] LABS: Abs Immature Grans 0.01 10^3/uL (0.0-0.06); Absolute Basophil Count 0.04 10^3/uL (0.0-0.2); Absolute Eosinophil Count 0.19 10^3/uL (0.0-0.7); Absolute Monocyte Count 0.62 10^3/uL (0.1-0.8); Absolute Neutrophil Count 5.03 10^3/uL (1.2-6.7); Basophils % 0.6; Eosinophils % 2.7; HCT 36.8 % (40.0-50.0); HGB 12.5 g/dL (13.5-17.5); Immature Grans % 0.1; Lymphocytes % 16.9; MCH 30.3 pg (27.0-33.0); MCV 89 fL (80-95); MPV 10.3 fL (8.0-11.0); Monocytes % 8.7; Platelet Count 194 10^3/uL (130-400); RBC 4.13 10^6/uL (4.36-5.78); RDW 13.1 % (11.8-14.1); RDW-SD 42.4 fL; WBC 7.09 10^3/uL (4.4-10.8)
[2022-03-03 14:11] LABS: BUN 18 mg/dL (7-18); C-Reactive Protein 0.67 mg/dL (0.0-0.3)
== END 2022-03-03 19:11 | disposition home or self-care (01) ==
LOC: NCHCN 19:10
PROVIDERS: PCP Internal Medicine; Visit Provider Family Medicine
DX: L02.415 Cutaneous abscess of right lower limb (principal)
CPT/HCPCS: 84520; 85652; 82565; 85025; 86140

== ENCOUNTER 2022-03-10 22:19 | Outpatient (REF) | payer BC, SELFPAY ==
[2022-03-10 14:31] LABS: Abs Immature Grans 0.01 10^3/uL (0.0-0.06); Absolute Basophil Count 0.05 10^3/uL (0.0-0.2); Absolute Eosinophil Count 0.27 10^3/uL (0.0-0.7); Absolute Lymphocyte Count 1.34 10^3/uL (1.2-3.4); Absolute Monocyte Count 0.52 10^3/uL (0.1-0.8); Absolute Neutrophil Count 3.03 10^3/uL (1.2-6.7); Eosinophils % 5.2; HCT 39.1 % (40.0-50.0); HGB 13.4 g/dL (13.5-17.5); Immature Grans % 0.2; Lymphocytes % 25.7; MCH 30.7 pg (27.0-33.0); MCHC 34.3 % (32.0-36.0); MCV 90 fL (80-95); MPV 10.1 fL (8.0-11.0); Neutrophils % 57.9; Platelet Count 226 10^3/uL (130-400); RBC 4.36 10^6/uL (4.36-5.78); RDW 12.7 % (11.8-14.1); WBC 5.22 10^3/uL (4.4-10.8)
[2022-03-10 14:35] LABS: ESR 22 mm/hr (0-15)
[2022-03-10 14:39] LABS: C-Reactive Protein 0.72 mg/dL (0.0-0.3); CREATININE 1.1 mg/dL (0.70-1.30)
[2022-03-10 22:02] LABS: BUN 17 mg/dL (7-18)
== END 2022-03-10 22:20 | disposition home or self-care (01) ==
LOC: NCHCN 22:19
PROVIDERS: Internal Medicine Infectious Disease; PCP Internal Medicine; Visit Provider Family Medicine
DX: B95.61 Methicillin susceptible Staphylococcus aureus infection as the cause of diseases classified elsewhere (principal); R78.81 Bacteremia; Z79.899 Other long term (current) drug therapy
CPT/HCPCS: 84520; 85652; 82565; 85025; 86140

== ENCOUNTER 2022-03-17 16:25 | Outpatient (REF) | payer BC, SELFPAY ==
[2022-03-17 12:20] LABS: ESR 17 mm/hr (0-15)
[2022-03-17 12:21] LABS: Abs Immature Grans 0.01 10^3/uL (0.0-0.06); Absolute Basophil Count 0.04 10^3/uL (0.0-0.2); Absolute Lymphocyte Count 0.97 10^3/uL (1.2-3.4); Absolute Neutrophil Count 2.88 10^3/uL (1.2-6.7); Basophils % 0.9; Eosinophils % 2.3; HCT 36.8 % (40.0-50.0); HGB 12.4 g/dL (13.5-17.5); Immature Grans % 0.2; MCH 30.1 pg (27.0-33.0); MCHC 33.7 % (32.0-36.0); MCV 89 fL (80-95); MPV 9.9 fL (8.0-11.0); Monocytes % 9.1; Neutrophils % 65.5; Platelet Count 197 10^3/uL (130-400); RBC 4.12 10^6/uL (4.36-5.78); RDW 12.6 % (11.8-14.1); RDW-SD 41.8 fL
[2022-03-17 12:42] LABS: BUN 19 mg/dL (7-18); C-Reactive Protein 0.46 mg/dL (0.0-0.3)
== END 2022-03-17 16:26 | disposition home or self-care (01) ==
LOC: NCHCN 16:25
PROVIDERS: PCP Internal Medicine; Visit Provider Family Medicine
DX: R78.81 Bacteremia (principal); B95.61 Methicillin susceptible Staphylococcus aureus infection as the cause of diseases classified elsewhere; Z79.899 Other long term (current) drug therapy
CPT/HCPCS: 84520; 85652; 82565; 85025; 86140

== ENCOUNTER 2022-08-07 00:59 | Outpatient (CLI) | payer OTHER, SELFPAY ==
--- NOTE | 2022-08-07 07:15 | DI.RAD_ITS ---
Exam(s) XR FOOT LT COMPLETE EXAM: XR FOOT LT COMPLETE CLINICAL HISTORY: L hallux ulcer,DIABETES, E11.9,L97.509. TECHNIQUE: 2D digital imaging was performed. COMPARISON: CR,XR HEEL RIGHT 2 VIEW from 11/25/2019 FINDINGS: 3 views No evidence of fracture or diastasis of Lisfranc joint. No osseous lesions. Great toe metatarsophal angeal joint appears unremarkable. Also no hallux valgus. On the oblique view there is a region of interest marked over the region of interphalangeal joint of the great toe. There is a possible skin ulcer at this level. There is a small focus of subcortical bone lucency in the lateral aspect of the head of the proximal phalanx at this level. Cortical thinn ing also noted. IMPRESSION: As above. If there is suspicion for osteomyelitis and I recommend dedicated views of the great toe a s the next step. DATA REPOSITORY: RADIATION DOSE DELIVERED:
== END 2022-08-07 01:19 ==
LOC: DI 00:59
PROVIDERS: PCP Internal Medicine; Visit Provider Podiatrist Foot & Ankle Surgery
DX: E11.9 Type 2 diabetes mellitus without complications (principal); L97.529 Non-pressure chronic ulcer of other part of left foot with unspecified severity
CPT/HCPCS: 73630

== ENCOUNTER 2022-09-28 16:00 | Outpatient (CLI) | payer OTHER, SELFPAY ==
--- NOTE | 2022-09-28 15:45 | DI.RAD_ITS ---
Exam(s) XR FOOT LT LIMITED EXAM: XR FOOT LT LIMITED INDICATION: assess for osteomyelitis, compare to previous xray L97.509 ULCER LEFT FOOT. COMPARISON: CR XR FOOT LT COMPLETE from 08/07/2022 TECHNIQUE: 2D digital imaging was performed. Two views. FINDINGS: Exam is limited by overlap of the toes on the lateral view. There is soft tissue swelling at the med ial aspect adjacent to the interphalangeal joint of the great toe. No bony erosion is seen. DATA REPOSITORY: RADIATION DOSE DELIVERED:
== END 2022-09-28 16:20 ==
LOC: DI 16:00
PROVIDERS: PCP Internal Medicine; Visit Provider Podiatrist Foot & Ankle Surgery
DX: L97.528 Non-pressure chronic ulcer of other part of left foot with other specified severity; M79.89 Other specified soft tissue disorders
CPT/HCPCS: 73620

== ENCOUNTER 2023-03-16 17:57 | Outpatient (REF) | payer OTHER, SELFPAY ==
[2023-03-16 15:26] LABS: Abs Immature Grans 0.01 10^3/uL (0.0-0.06); Absolute Basophil Count 0.03 10^3/uL (0.0-0.2); Absolute Eosinophil Count 0.07 10^3/uL (0.0-0.7); Absolute Lymphocyte Count 1.21 10^3/uL (1.2-3.4); Absolute Monocyte Count 0.39 10^3/uL (0.1-0.8); Absolute Neutrophil Count 3.56 10^3/uL (1.2-6.7); Basophils % 0.6; Eosinophils % 1.3; HCT 43.1 % (40.0-50.0); Immature Grans % 0.2; MCH 31.2 pg (27.0-33.0); MCHC 34.8 % (32.0-36.0); MCV 90 fL (80-95); MPV 10.5 fL (8.0-11.0); Monocytes % 7.4; Neutrophils % 67.5; Platelet Count 230 10^3/uL (130-400); RBC 4.81 10^6/uL (4.36-5.78); RDW 12.3 % (11.8-14.1); RDW-SD 40.2 fL; WBC 5.27 10^3/uL (4.4-10.8)
[2023-03-16 15:31] LABS: ESR 8 mm/hr (0-20)
[2023-03-16 15:43] LABS: ALT 20 U/L (16-63); AST 26 U/L (15-37); Albumin 3.8 g/dL (3.4-5.0); Alkaline Phosphatase 69 U/L (46-116); Anion Gap 5.7 mmol/L (3-11); BUN 21 mg/dL (7-18); Bilirubin, Total 0.5 mg/dL (0.2-1.0); C-Reactive Protein 0.31 mg/dL (0.0-0.3); CO2 29.3 mmol/L (21.0-32.0); CREATININE 1.5 mg/dL (0.70-1.30); Calcium 8.9 mg/dL (8.5-10.1); Chloride 106 mmol/L (98-107); Estimated GFR 56.02 (mL/min/1.73m2); Glucose 136 mg/dL (74-106); Potassium 4.4 mmol/L (3.5-5.1); Sodium 141 mmol/L (136-145); Total Protein 7.3 g/dL (6.4-8.2)
== END 2023-03-16 17:58 | disposition home or self-care (01) ==
LOC: NCHCN 17:57
PROVIDERS: PCP Internal Medicine; Visit Provider Internal Medicine
DX: R10.32 Left lower quadrant pain (principal); E11.9 Type 2 diabetes mellitus without complications; Z87.2 Personal history of diseases of the skin and subcutaneous tissue; Z86.19 Personal history of other infectious and parasitic diseases; R79.82 Elevated C-reactive protein (CRP)
CPT/HCPCS: 80053; 85652; 85025; 86140

== ENCOUNTER 2023-05-10 22:33 | Emergency (ER) | payer OTHER, SELFPAY ==
[2023-05-10 22:39] VITALS: BP 150/121; PULSE 74; RESP 16; TEMP 36.4; O2SAT 99
[2023-05-10 22:47] VITALS: RESP 16
--- NOTE | 2023-05-10 23:06 | W.EDPROG ---
Date of service: 05/10/23 Time of Service: 23:25 Discharge Plan Discharge Details Chief Complaint: Vascular Primary Care Provider: Jerry Ibrahim ED Provider: Osei Wells Home Meds and New Rx's Prescriptions: No Action magnesium oxide 400 mg (241.3 mg magnesium) tablet 200 mg PO DAILY losartan-hydrochlorothiazide 100-25 mg tablet 1 tab PO DAILY terazosin 5 mg capsule 5 mg PO QHS valacyclovir 500 mg tablet 500 mg PO BID albuterol sulfate [Ventolin HFA] 90 mcg/actuation HFA aerosol inhaler 2 puff IH Q4H PRN sertraline [Zoloft] 50 mg tablet 50 mg PO DAILY Levemir U-100 Insulin 100 unit/mL solution 62 unit SC QHS metformin [Glucophage] 1,000 MG tablet 1,000 mg PO BID@0800,1700 gabapentin 300 MG capsule 600 mg PO BID amlodipine 5 mg tablet 10 mg PO DAILY
[2023-05-10] MEDS: Amoxicillin 875/Clav. 125 TAB PO (23:25)
[2023-05-10] MEDS: Povidone-Iodine Soln. 118 ML BTL (23:25)
--- NOTE | 2023-05-10 23:25 | ED.GENADUL_ITS ---
Discharge Plan Disposition Patient Disposition: Home Discharge Details Clinical Impression: Blister of toe Primary Care Provider: Jerry Ibrahim ED Provider: Osei Wells Meds and New Rx's Prescriptions: New amoxicillin-pot clavulanate 875-125 mg tablet 1 tab PO BID Qty: 14 0RF Continued magnesium oxide 400 mg (241.3 mg magnesium) tablet 200 mg PO DAILY losartan-hydrochlorothiazide 100-25 mg tablet 1 tab PO DAILY terazosin 5 mg capsule 5 mg PO QHS valacyclovir 500 mg tablet 500 mg PO BID albuterol sulfate [Ventolin HFA] 90 mcg/actuation HFA aerosol inhaler 2 puff IH Q4H PRN sertraline [Zoloft] 50 mg tablet 50 mg PO DAILY Levemir U-100 Insulin 100 unit/mL solution 62 unit SC QHS metformin [Glucophage] 1,000 MG tablet 1,000 mg PO BID@0800,1700 gabapentin 300 MG capsule 600 mg PO BID amlodipine 5 mg tablet 10 mg PO DAILY Discharge Instructions Stand Alone Forms: Work Release Referrals: Jerry Ibrahim MD [Primary Care Provider] - 2 days Discharge Data Discharge Physician: Osei Wells Medical Decision Making MDM: Summary: Patient presents to the emergency department when he noted that his left great toe was red with the broken blister. He is a diabetic who has neuropathy so does not feel and this is clearly an injury from being in wet Environment. There is no signs of infection at this time just a broken blister. He will be placed on antibiotics. He had labs done which were unremarkable. Data Review Analysis All the data on this patient was reviewed by me including laboratory and imaging studies as well as bedside studies performed by me Independent review of Studies Imaging Lab: Labs do not show white count or any electrolyte abnormality Risk Stratification: Patient who is a diabetic who has diabetic neuropathy and only today noted that his foot was red reddened and a blister but there is no signs of infection he will be placed on prophylactic antibiotics and will be off work with a dressing and spoken to him that he needs his foot to be dry. Differential Diagnosis: 1. Wet injury diabetic neuropathy 2. Cellulitis 3. Diabetic foot ulcer 4. 5. Consultants: Shared disposition: Patient understands instructions and he will follow-up with his primary care physician Impression: Medical Records Medical records reviewed: Yes I reviewed the patient's medical records. Lab Data Lab results reviewed: Yes I reviewed the patient's lab results. HPI General Date/Time Provider Initiated Documentation: 05/10/23 22:45 . HPI Narrative: Patient presents to the emergency department stating that he was working all day with wet shoes and he has diabetic neuropathy and does not feel his feet and when he took off his shoe he noted that his left great toe had a denuded blister and was swollen and red. Patient states that he does not have feeling denies any fever denies any chills denies any foot redness. He states that he did not notice that the skin was peeling on the bottom of his left great toe Related Data Home Medications Medication Instructions Recorded Confirmed metformin 1,000 mg tablet 1,000 mg PO BID@0800,1700 05/02/13 02/18/23 (Glucophage) gabapentin 300 mg capsule 600 mg PO BID 09/22/13 02/18/23 albuterol sulfate 90 mcg/actuation 2 puff inhalation Q4H PRN 12/04/19 02/18/23 aerosol inhaler (Ventolin HFA) sertraline 50 mg tablet (Zoloft) 50 mg PO DAILY 12/04/19 02/18/23 terazosin 5 mg capsule 5 mg PO QHS 12/04/19 02/18/23 valacyclovir 500 mg tablet 500 mg PO BID 12/04/19 02/18/23 amlodipine 5 mg tablet 10 mg PO DAILY 12/13/19 02/18/23 losartan 100 1 tab PO DAILY 12/13/19 02/18/23 mg-hydrochlorothiazide 25 mg tablet magnesium oxide 400 mg (241.3 mg 200 mg PO DAILY 12/13/19 02/18/23 magnesium) tablet insulin detemir U-100 100 unit/mL 62 unit subcut QHS 08/03/22 02/18/23 subcutaneous solution (Levemir U-100 Insulin) amoxicillin 875 mg-potassium 1 tab PO BID #14 tabs 05/11/23 clavulanate 125 mg tablet Previous Rx's Medication Instructions Recorded amoxicillin 875 mg-potassium 1 tab PO BID #14 tabs 05/11/23 clavulanate 125 mg tablet Allergies Allergy/AdvReac Type Severity Reaction Status Date / Time lisinopril AdvReac Mild Unverified 02/22/23 15:58 General Stated Complaint: GenMedical KALIN: 4 Review of Systems Narrative: Review of Systems: Constitutional: No fevers, chills, sweats Eye: No recent visual problems ENT: No ear pain, nasal congestion, sore throat Respiratory: No shortness of breath, cough Cardiovascular: No Chest pain, palpitations, syncope Gastrointestinal: No nausea, vomiting, diarrhea Genitourinary: No hematuria Jose/Lymph: Negative for bruising tendency, swollen lymph glands Endocrine: Negative for excessive thirst, excessive hunger Musculoskeletal: No back pain, neck pain, joint pain, muscle pain, decreased range of motion Integumentary: No rash, pruritus, abrasions Neurologic: Alert & oriented X 4 Psychiatric: No anxiety, depression PFSH All Active Problems (Updated 05/11/23 @ 01:01 by Osei Wells MD) Blister of toe (Acute) Ulcer of other part of foot (Acute) Hematuria (Acute) Abscess of leg, right (Acute) Abscess of left thigh (Acute) Abscess of right thigh (Acute) Herniation of intervertebral disc between L5 and S1 (Acute) Type 2 diabetes mellitus (Chronic) Achilles rupture, left (Acute) Plantar fascial fibromatosis (Acute) Tendonitis, Achilles, right (Acute) Syncope (Chronic) Bronchial pneumonia (Acute) Sexual dysfunction (Acute) Cough (Acute) Preventative health care (Acute) Tinea pedis (Acute) Night sweats (Acute) Diabetic peripheral neuropathy (Acute) Neck pain, chronic (Acute) Diabetic retinopathy, background (Acute) Overweight (Acute) Herpes, genital (Acute) Depression (Chronic) Hypertension (Chronic) Subcutaneous mass of right foot (Acute) plantar aspect Medical History Diabetes Sleep apnea does not use device Surgical History H/O arthroscopic knee surgery History of nasal surgery Hx of arthroscopy of shoulder Hx of elbow surgery torn tendon Hx of wisdom tooth extraction Social History Smoking/Tobacco Use Status: Never Smoking risk assessment performed?: Yes Alcohol Intake: current Alcohol Intake frequency: holidays/special occasions only Alcohol type: beer Drug use: Never Substance use type: does not use Household members: none Number of Children: 0 current occupation: employed - [employer]. Current gender identity: male Do you feel safe at home: Yes Do you feel safe in your relationship?: Yes Exam Narrative Exam Narrative: Exam; vitals signs as reported above Constitutional; In no acute distress, afebrile General: cooperative, healthy appearing, comfortable and no acute distress HEENT: Head: normal to inspection, no palpable skull fracture and normocephalic Eyes: l: appearance normal, both eyes and all related structures ]Pupils: PERRL EOM: EOM intact bilaterally Direct ophthalmoscopy: normal light reflex, normal conjunctiva, normal visual acuity Neck no JVD, supple Neck: normal visual inspection, full ROM and no lymphadenopathy Chest Chest: normal inspection of the chest Respiratory : normal respiratory effort and able to speak in complete sentences Cardio Rate: regular rate Rhythm: regular rhythm normal heart sounds S1 and S2 no murmurs, gallops, or rubs GI Inspection: normal to inspection, normal bowel sounds, soft, non tender, non distended, no organomegally Back/Spine/ no CVA tenderness Thoracic/Lumbar Spine: no tenderness or deformities Skin no rashes or lesions redness to the dorsal aspect of the left great toe with skin avulsion in the inferior aspect and visible wet injury Neuro: patient alert and no meningeal signs, Cranial Nerves: CN's II-XI intact bilaterally, Cognition: normal cognition, Speech: speech normal, Gait: normal g ait, Depp tendon reflexes normal 2+ Extremities, no edema, full range of motion, normal strength Course Vital Signs Vital signs: Vital Signs Temperature 36.4 C 05/10/23 22:39 Pulse 74 05/10/23 22:39 Respiratory Rate 16 05/10/23 22:39 Blood Pressure 150/121 H 05/10/23 22:39 Pulse Oximetry 99 05/10/23 22:39 Temperature 36.4 C 05/10/23 22:39 Temperature Source Oral 05/10/23 22:39 Pulse 74 05/10/23 22:39 Respiratory Rate 16 05/10/23 22:47 Respiratory Effort Normal 05/10/23 22:47 Respiratory Depth Normal 05/10/23 22:47 Respiratory Pattern Normal 05/10/23 22:47 Blood Pressure 150/121 H 05/10/23 22:39 Blood Pressure Position Sitting 05/10/23 22:39 Pulse Oximetry 99 05/10/23 22:39 Oxygen Delivery Method Room Air 05/10/23 22:39 Oxygen Flow Rate 0 05/10/23 22:39 Pain Level 3 05/10/23 22:39 Comment pain where skin is peeled 05/10/23 22:39 Vital Signs & Lab Results Vital Signs Most Recent Vital Signs: Most Recent Vital Signs Temp Pulse Resp BP Pulse Ox 36.4 C 74 16 150/121 H 99 05/10/23 22:39 05/10/23 22:39 05/10/23 22:47 05/10/23 22:39 05/10/23 22:39 Point of Care Results Nursing Point of Care Results: No Data to Display Lab Results 05/10/23 23:30 05/10/23 23:30 Blood Type / Crossmatch: No Data to Display Complete Blood Count: White Blood Count 5.46 10^3/uL (4.4-10.8) 05/10/23 23:30 Red Blood Count 4.55 10^6/uL (4.36-5.78) 05/10/23 23:30 Hemoglobin 14.2 g/dL (13.5-17.5) 05/10/23 23:30 Hematocrit 40.6 % (40.0-50.0) 05/10/23 23:30 Platelet Count 208 10^3/uL (130-400) 05/10/23 23:30 Complete Metabolic Panel: Sodium 139 mmol/L (136-145) 05/10/23 23:30 Potassium 4.7 mmol/L (3.5-5.1) 05/10/23 23:30 Chloride 103 mmol/L (98-107) 05/10/23 23:30 Carbon Dioxide 30.0 mmol/L (21.0-32.0) 05/10/23 23:30 BUN 15 mg/dL (7-18) 05/10/23 23:30 Creatinine 1.1 mg/dL (0.70-1.30) 05/10/23 23:30 Est GFR (CKD-EPI 2020) 81.28 (mL/min/1.73m2) 05/10/23 23:30 Calcium 8.3 mg/dL (8.5-10.1) L 05/10/23 23:30 Albumin 3.6 g/dL (3.4-5.0) 05/10/23 23:30 Glucose 278 mg/dL (74-106) H 05/10/23 23:30 Liver Function Panel: Alanine Aminotransferase (ALT/SGPT) 18 U/L (16-63) 05/10/23 23: 30 Aspartate Amino Transf (AST/SGOT) 22 U/L (15-37) 05/10/23 23:30 Coagulation Panel: No Data to Display Cardiac Panel: No Data to Display Arterial Blood Gas: No Data to Display Venous Blood Gas: No Data to Display Pancreas Panel: No Data to Display Thyroid Panel: No Data to Display Infectious Disease: No Data to Display Blood Cultures: No Data to Display Toxicology Panel: No Data to Display
[2023-05-10 23:34] LABS: Abs Immature Grans 0.01 10^3/uL (0.0-0.06); Absolute Basophil Count 0.05 10^3/uL (0.0-0.2); Absolute Eosinophil Count 0.09 10^3/uL (0.0-0.7); Absolute Lymphocyte Count 1.48 10^3/uL (1.2-3.4); Absolute Monocyte Count 0.57 10^3/uL (0.1-0.8); Absolute Neutrophil Count 3.26 10^3/uL (1.2-6.7); Basophils % 0.9; Eosinophils % 1.6; HCT 40.6 % (40.0-50.0); HGB 14.2 g/dL (13.5-17.5); Immature Grans % 0.2; Lymphocytes % 27.1; MCH 31.2 pg (27.0-33.0); MCV 89 fL (80-95); MPV 9.8 fL (8.0-11.0); Monocytes % 10.4; Neutrophils % 59.8; Platelet Count 208 10^3/uL (130-400); RBC 4.55 10^6/uL (4.36-5.78); RDW 12.7 % (11.8-14.1); RDW-SD 41.7 fL; WBC 5.46 10^3/uL (4.4-10.8)
[2023-05-10 23:58] LABS: ALT 18 U/L (16-63); AST 22 U/L (15-37); Albumin 3.6 g/dL (3.4-5.0); Alkaline Phosphatase 76 U/L (46-116); BUN 15 mg/dL (7-18); Bilirubin, Total 0.6 mg/dL (0.2-1.0); CREATININE 1.1 mg/dL (0.70-1.30); Calcium 8.3 mg/dL (8.5-10.1); Chloride 103 mmol/L (98-107); Estimated GFR 81.28 (mL/min/1.73m2); Glucose 278 mg/dL (74-106); Potassium 4.7 mmol/L (3.5-5.1); Sodium 139 mmol/L (136-145); Total Protein 6.5 g/dL (6.4-8.2)
== END 2023-05-11 01:07 | disposition home or self-care (01) ==
PROVIDERS: Emergency Provider Emergency Medicine Emergency Medical Services; PCP Internal Medicine
DX: S90.442A External constriction, left great toe, initial encounter (principal); X58.XXXA Exposure to other specified factors, initial encounter
CPT/HCPCS: 80053; 99283; 85025; 99284

== ENCOUNTER 2023-08-04 19:42 | Outpatient (REF) | payer OTHER, SELFPAY ==
[2023-08-04 15:55] LABS: Abs Immature Grans 0.02 10^3/uL (0.0-0.06); Absolute Basophil Count 0.04 10^3/uL (0.0-0.2); Absolute Eosinophil Count 0.15 10^3/uL (0.0-0.7); Absolute Lymphocyte Count 1.19 10^3/uL (1.2-3.4); Absolute Monocyte Count 0.35 10^3/uL (0.1-0.8); Absolute Neutrophil Count 2.86 10^3/uL (1.2-6.7); Basophils % 0.9; Eosinophils % 3.3; HCT 41.9 % (40.0-50.0); HGB 14.7 g/dL (13.5-17.5); Immature Grans % 0.4; Lymphocytes % 25.8; MCH 31.3 pg (27.0-33.0); MCHC 35.1 % (32.0-36.0); MCV 89 fL (80-95); MPV 10.4 fL (8.0-11.0); Monocytes % 7.6; Platelet Count 219 10^3/uL (130-400); RDW-SD 39.1 fL; WBC 4.61 10^3/uL (4.4-10.8)
[2023-08-04 16:07] LABS: Anion Gap 6.4 mmol/L (3-11); BUN 12 mg/dL (7-18); CO2 28.6 mmol/L (21.0-32.0); Calcium 8.9 mg/dL (8.5-10.1); Chloride 102 mmol/L (98-107); Estimated GFR 91.12 (mL/min/1.73m2); Glucose 204 mg/dL (74-106); Potassium 4.8 mmol/L (3.5-5.1); Sodium 137 mmol/L (136-145)
== END 2023-08-04 19:43 | disposition home or self-care (01) ==
LOC: NCHCN 19:42
PROVIDERS: PCP Internal Medicine; Visit Provider Family Medicine
DX: E11.621 Type 2 diabetes mellitus with foot ulcer (principal); Z01.818 Encounter for other preprocedural examination
CPT/HCPCS: 80048; 85025

== ENCOUNTER 2024-01-26 21:38 | Outpatient (REF) | payer BC, SELFPAY ==
[2024-01-26 21:26] LABS: HCT 48.9 % (40.0-50.0); HGB 17.2 g/dL (13.5-17.5); MCH 31.4 pg (27.0-33.0); MCHC 35.2 % (32.0-36.0); MCV 89 fL (80-95); MPV 10.5 fL (8.0-11.0); Platelet Count 191 10^3/uL (130-400); RBC 5.48 10^6/uL (4.36-5.78); RDW 12.1 % (11.8-14.1)
== END 2024-01-26 21:39 | disposition home or self-care (01) ==
LOC: NCHCN 21:38
PROVIDERS: PCP Internal Medicine; Visit Provider Family Medicine
DX: M54.6 Pain in thoracic spine (principal)
CPT/HCPCS: 85027

== ENCOUNTER → 2024-02-16 02:39 | Outpatient (CLI) | payer OTHER, SELFPAY ==
--- NOTE | 2024-02-16 09:11 | DI.RAD_ITS ---
Exam(s) XR LUMBAR SPINE AP, LAT EXAM: XR LUMBAR SPINE AP, LAT CLINICAL HISTORY: Z02.71 Disability Determination, Low Back Pain,state severity of disease. TECHNIQUE: 2D digital imaging was performed. Five views. COMPARISON: No exams were available for comparison FINDINGS: BONES: No fracture or destructive lesion. Vertebral body heights are maintained. Mild endplate osteo phytes, mainly projecting anteriorly. Mild facet hypertrophy identified L4-5 and L5-S1.. DISKS: Intervertebral disc spaces are maintained. ALIGNMENT: Lumbar spinal alignment is within normal limits. SOFT TISSUE: Normal. IMPRESSION: Mild degenerative changes of the lumbar spine. DATA REPOSITORY: RADIATION DOSE DELIVERED:
--- NOTE | 2024-02-16 09:11 | DI.RAD_ITS ---
Exam(s) XR CERVICAL SP CEDENO TRAUMA 2-3V EXAM: XR CERVICAL SP CEDENO TRAUMA 2-3V CLINICAL HISTORY: Z02.71 Disability Determination, Neck pain,state severity of disease. TECHNIQUE: 2D digital imaging was performed. Three views. COMPARISON: No exams were available for comparison FINDINGS: BONES: No fracture or destructive lesion. Vertebral bodies are unremarkable. No significant facet de generative changes. DISKS: Moderate narrowing of the C5-6 and C6-7 disc spaces with circumferentially projecting osteophy nancy. The remaining intervertebral disc spaces are maintained. ALIGNMENT: Cervical spinal alignment is within normal limits. The odontoid and atlantoaxial articulat ions are normal. SOFT TISSUE: Normal. The lung apices are clear. IMPRESSION: Moderate degenerative disc changes at C5-6 and C6-7. DATA REPOSITORY: RADIATION DOSE DELIVERED:
--- NOTE | 2024-02-16 09:11 | DI.RAD_ITS ---
Exam(s) XR SHOULDER LT COMPLETE 2+V EXAM: XR SHOULDER LT COMPLETE 2+V CLINICAL HISTORY: Z02.71 Disability Determination, L- shoulder pain,state severity of disease. TECHNIQUE: 2D digital imaging was performed. Five views. COMPARISON: CR LEFT SHOULDER COMPLETE from 09/13/2013 FINDINGS: BONES: No acute fracture is present. No bony destructive lesion is seen. JOINTS: No dislocation present. Minimal changes of the AC joint. Spurring at the tip of the acromio n. Glenohumeral joint space is maintained. Mild spurring at the glenoid. SOFT TISSUE: Normal. IMPRESSION: Mild degenerative changes of the left shoulder. DATA REPOSITORY: RADIATION DOSE DELIVERED:
== END ==
PROVIDERS: PCP Internal Medicine; Visit Provider Pediatrics Pediatric Rheumatology
DX: Z02.71 Encounter for disability determination (principal); M54.50 Low back pain, unspecified; M54.2 Cervicalgia; M25.512 Pain in left shoulder; M19.012 Primary osteoarthritis, left shoulder; M51.36 Other intervertebral disc degeneration, lumbar region; M50.322 Other cervical disc degeneration at C5-C6 level; M50.323 Other cervical disc degeneration at C6-C7 level
CPT/HCPCS: 72040; 72100; 73030

== ENCOUNTER 2024-05-19 07:17 | Day surgery (SDC) | payer BC, SELFPAY ==
--- NOTE | 2024-05-18 21:11 | W.PM.DSUDISC ---
Date of service: 05/19/24 Time of Service: 09:57 Discharge Plan Disposition Patient Disposition: Home Condition: Good Discharge Details Reason For Visit: screening colonoscopy Attending Provider: Ozzy Garcia Primary Care Provider: Jerry Ibrahim Home Meds and New Rx's Prescriptions: Continued magnesium oxide 400 mg (241.3 mg magnesium) tablet 200 mg PO DAILY losartan-hydrochlorothiazide 100-25 mg tablet 1 tab PO DAILY polyethylene glycol 3350 17 gram/dose powder 17 g PO ONCE Qty: 238 0RF Rx Instructions: Take per colonoscopy instructions provided by ordering providers office terazosin 5 mg capsule 5 mg PO QHS valacyclovir 500 mg tablet 500 mg PO BID Patient Comments: pt reports not taking anymore albuterol sulfate [Ventolin HFA] 90 mcg/actuation HFA aerosol inhaler 2 puff IH Q4H PRN sertraline [Zoloft] 50 mg tablet 50 mg PO DAILY methocarbamol 1,000 mg tablet 1,000 mg PO QID meloxicam 15 mg tablet 15 mg PO DAILY Levemir U-100 Insulin 100 unit/mL solution 80 unit SC QHS Patient Comments: 40 U HS 7/18 metformin [Glucophage] 1,000 MG tablet 1,000 mg PO BID@0800,1700 gabapentin 300 MG capsule 600 mg PO BID amlodipine 5 mg tablet 10 mg PO DAILY Discontinued bisacodyl [Dulcolax (bisacodyl)] 5 mg tablet,delayed release (DR/EC) 5 mg PO ONCE Qty: 4 0RF Rx Instructions: Take per colonoscopy instructions provided by ordering providers office Discharge Instructions Instructions: Colon polyps Additional Instructions: Lino, we were able to complete yur colonoscopy today just as we discussed. I did find and remove 2 polyps today. There are no features worrisome to the naked eye. I will send them off for testing and that information will guide the timing of your next colonscopy. Those results will take aweek or two and we will be in touch as soon as they are available. 1. If tolerated, consume a soft, low fiber diet for 1-2 days. 2[address] Do not drive, drink alcohol, operate machinery, make critical decisions, or do activities that require coordination or balance for 24 hours. 3. Because air was put into your colon during the procedure, expelling air from your rectum (passing gas or farting) is normal. 4. You may not have a bowel movement for 1-3 days because of the colonoscopy prep. This is normal. 5. Go directly to the emergency room if you notice any of the following: Develop chills (warm to touch), or if you have a thermometer and your temperature is above 101 Difficulty breathing or difficultly swallowing Persistent vomiting Severe abdominal pain, other than gas cramps Severe chest pain Black, tarry stools Any bleeding ? exceeding one tablespoon 6. Call your physician if the site where your intravenous was started becomes red, swollen, painful, and warm to touch. 7. Your physician has reviewed your pre-procedure medications. Please continue to take those medications as previously ordered. You will be given specific information/education regarding any changes to your medications before leaving. Activity:: Activity as Tolerated Diet:: As Tolerated Discharge Orders Discharge Orders: Discharge Order (Routine); Ordered 05/18/24 Ordered By: Ozzy Garcia DS: Diagnosis Discharge Diagnosis (1) Encounter for screening colonoscopy: Status: Acute Asessment and Plan: Follow up on polypectomy results
--- NOTE | 2024-05-18 21:13 | W.COLOREPORT ---
Date of service: 05/19/24 Time of Service: 09:59 Colonoscopy Report Date of procedure: 05/19/24 Pre-op diagnosis general: screening colonoscopy Post-op diagnosis procedure note: other (colon polyps) Procedure: colonoscopy with polypectomy Surgeon: Ozzy Garcia Anesthesia Type: General:No Airway Estimated blood loss (mL): 5 Pathology: other (0.25 cm flat polyp at 65 cm, 0.5 cm pedunculated polyp at 40 cm) Complications: None Disposition: same day Indications: Lino is a 54 years old. He needs a screening colonoscopy. He has a family history of colon cancer. Prep: Miralax/Dulcolax Procedure Start Time: 09:32 Procedure End Time: 09:50 Retraction Time: 13 Findings: 0.25 cm flat polyp at 65 cm, 0.5 cm pedunculated polyp at 40 cm Procedure Description: After the induction of anesthesia, and with the patient in left lateral decubitus position, I began by performing an external anorectal exam.? The perineum and skin were normal, as was the anal verge.? There was no evidence of external hemorrhoids.? Next, I performed a digital rectal exam.? I did not appreciate any abnormal findings.? Next, I advanced a colonoscope into the rectal vault.? I performed retroflexion.? This appeared normal.? Using insufflation, I then advanced the colonoscope beyond the rectal folds and into the sigmoid colon before advancing towards the cecum.? The scope was noted to be in the cecum by identification of the ileocecal valve and appendiceal orifice.? I then began withdrawing the colonoscope using repeated irrigation as necessary for full evaluation of the colonic mucosa. Around 65 cm from the anal verge I identified a 0.25 cm polyp. ?It appeared flat in character. ?I was able to remove this with a cold forcep polypectomy. ?I examined the site, and there was minimal bleeding. ?Once this was completed, I continued to withdraw the scope and examine the remainder of the colonic mucosa.? I found another polyp at 40 cm from the anal verge. This was about half of a centimeter. This was a little more pedunculated. I was able to remove this in its entirety with cold forceps as well. Once the scope was withdrawn to the level of the rectum, great care was taken to examine portions of the rectal folds.? Finally, the scope was withdrawn and the patient was brought to the same-day surgery recovery unit as the anesthetic wore off. ?The findings and instructions were shared with the patient prior to discharge. [place] Bowel Prep [place] Bowel Prep Right Colon: 3 Left Colon: 3 Transverse Colon: 3 Total Score: 9
[2024-05-19 08:11] VITALS: BP 172/105; PULSE 69; RESP 16; TEMP 36.3; O2SAT 100
--- NOTE | 2024-05-19 08:34 | W.ANESPRE ---
General Info Date of Service Date Performed: 05/19/24 Height: 5 ft 9 in Weight: 97.7 kg Body Mass Index (BMI): 31.8 Surgical Procedure: Operation Date: 05/19/24 09:05 Proposed Procedure Side Surgeon arsenio Garcia MD Meds Allergies and Home Medications Allergies Allergy/AdvReac Type Severity Reaction Status Date / Time lisinopril AdvReac Mild Other (See Verified 05/19/24 08:04 Comment) Home Medication ?Medication ?Instructions ?Recorded metformin 1,000 mg tablet 1,000 mg PO BID@0800,1700 05/02/13 (Glucophage) gabapentin 300 mg capsule 600 mg PO BID 09/22/13 albuterol sulfate 90 mcg/actuation 2 puff inhalation Q4H PRN 12/04/19 aerosol inhaler (Ventolin HFA) sertraline 50 mg tablet (Zoloft) 50 mg PO DAILY 12/04/19 terazosin 5 mg capsule 5 mg PO QHS 12/04/19 valacyclovir 500 mg tablet 500 mg PO BID 12/04/19 amlodipine 5 mg tablet 10 mg PO DAILY 12/13/19 losartan 100 1 tab PO DAILY 12/13/19 mg-hydrochlorothiazide 25 mg tablet magnesium oxide 400 mg (241.3 mg 200 mg PO DAILY 12/13/19 magnesium) tablet meloxicam 15 mg tablet 15 mg PO DAILY 08/31/23 methocarbamol 1,000 mg tablet 1,000 mg PO QID 08/31/23 insulin detemir U-100 100 unit/mL 80 unit subcut QHS 04/27/24 subcutaneous solution (Levemir U-100 Insulin) polyethylene glycol 3350 17 17 g PO ONCE #238 grams 04/27/24 gram/dose oral powder Current Visit Medications: Current Medications Generic Name Dose Route Start Last Admin Trade Name Freq PRN Reason Stop Dose Admin Ringer's Solution 1,000 mls @ 80 mls/hr 05/19/24 06:00 IV 05/19/24 23:59 INFUSION [facility] IV Miscellaneous Supplies 1 each 05/19/24 06:00 Iv Access IV 05/19/24 23:59 DIRECTED [facility] Ondansetron HCl 4 mg 05/18/24 21:12 Ondansetron 4 Mg/2 Ml Vial IVP 06/17/24 21:11 Q4H PRN PRN Nausea / Vomiting Sodium Chloride 0 ml 05/19/24 06:00 Normal Saline Flush 10 Ml Syr IV 05/19/24 23:59 PRN PRN Sodium Chloride 0 ml 05/19/24 06:00 Normal Saline 10 Ml Vial IJ 05/19/24 23:59 DIRECTED PRN Sterile Water 0 ml 05/19/24 06:00 Water,Injection,Sterile 10 Ml Vial IJ 05/19/24 23:59 DIRECTED PRN PFSH Active Problems Active Problems: Problem Status Onset Code Encounter for screening colonoscopy Acute Z12.11 Ulcer of other part of foot Acute L97.509 Hematuria Acute R31.9 Abscess of leg, right Acute L02.415 Abscess of left thigh Acute L02.416 Abscess of right thigh Acute L02.415 Herniation of intervertebral disc between L5 and S1 Acute M51.27 Type 2 diabetes mellitus Chronic E11.9 Achilles rupture, left Acute S86.012A Plantar fascial fibromatosis Acute M72.2 Subcutaneous mass of right foot Acute R22.41 Hypertension Chronic I10 Depression Chronic F32.9 Herpes, genital Acute A60.00 Overweight Acute E66.3 Diabetic retinopathy, background Acute E11.3299 Neck pain, chronic Acute M54.2, G89.29 Diabetic peripheral neuropathy Acute E11.42 Night sweats Acute R61 Tinea pedis Acute B35.3 Preventative health care Acute Z00.00 Cough Acute R05 Sexual dysfunction Acute R37 Bronchial pneumonia Acute J18.0 Syncope Chronic R55 Tendonitis, Achilles, right Acute M76.61 Medical History Medical History Family hx of colon cancer Brother Sleep apnea does not use device Diabetes Medical History Comments:: Reports brother had stage 1 colon Ca; pt reports startling easy on waking up Surgical History Surgical History Hx of foot surgery Hx of wisdom tooth extraction Hx of arthroscopy of shoulder Hx of elbow surgery torn tendon History of nasal surgery H/O arthroscopic knee surgery Tobacco Smoking/Tobacco Use Status: Never Alcohol Alcohol Intake: current Alcohol intake frequency: holidays/special occasions only Alcohol type: beer Substance Use Substance use: Never Substance use type: does not use Vital Signs and Lab Results Vital Signs Most Recent Vital Signs in EMR: Most Recent Vital Signs Temp Pulse Resp BP Pulse Ox 36.3 C L 69 16 172/105 H 100 05/19/24 08:11 05/19/24 08:11 05/19/24 08:11 05/19/24 08:11 05/19/24 08:11 Lab Results Blood Type / Crossmatch: No Data to Display Complete Blood Count: No Data to Display Complete Metabolic Panel: No Data to Display Liver Function Panel: No Data to Display Coagulation Panel: No Data to Display Cardiac Panel: No Data to Display Arterial Blood Gas: No Data to Display Venous Blood Gas: No Data to Display Pancreas Panel: No Data to Display Thyroid Panel: No Data to Display Infectious Disease: No Data to Display Blood Cultures: No Data to Display Toxicology Panel: No Data to Display Imaging and Studies Imaging and Studies Study information below may be from another EMR and interpreted by another provider. Please see original notes in EMR for more complete details. EKG Summary: Conclusion Sinus rhythm...normal P axis, V-rate 60- 99 normal sinusrhythm, normal axis, normal intervals, non ischemic 02/04/22 Stress Test Summary: RESULTS Arrhythmias: None Angina: None HR response: Max 166 bpm BP response: Hypertensive ST-T changes: No significant EKG changes. MIBI SPECT images: Functional Capacity: Negative for ischemia. Mildly diminished functional capacity CONCLUSION: Negative for ischemia. 09/12/13 Echocardiogram Summary: Conclusion Normal left ventricular wall thickness and chamber size. Estimated ejection fraction is 60%. Wall motion is normal The right ventricle is not well visualized Both atria are normal in size There is no structural or hemodynamically significant valvular disease No valvular vegetations were identified Mildly dilated ascending aorta measuring 3.73 cm 02/09/22 Anesthesia Assessment and Plan Anesthesia History Personal History: Delayed Emergence Family History: No Family History of Anesthesia Complications Exercise Tolerance Exercise Tolerance: Metabolic Equivalents>4 Pertinent Negatives Pertinent Negatives: No Symptoms of GERD, No Major Cardiovascular Symptoms or Complaints and No Major Pulmonary Symptoms or Complaints Cardiac & Pulmonary Exam Cardiac Exam: Normal S1/S2 Heart Sounds Pulmonary Exam: Clear Bilateral Breath Sounds Implantable Cardiac Device Does patient have a Pacemaker or an ICD?: No Airway Exam Known Difficult Airway: No Mallampati Class: 2 Mouth Opening: Normal (> 3cm) Thyromental Distance: Greater than 3 cm Neck Range of Motion: Full ROM Neck Circumference: Normal Teeth Condition: Normal Dentition and Removable Dentures/Plates Upper ASA Classification ASA Score: ASA 2 Emergency Case?: No NPO Status NPO Status: NPO Clears >2 hours, Solids >8 hours Anesthesia Plan Resuscitation Status: Full Code Anesthesia Technique: General Anesthesia Airway Planned: Natural Airway Monitors Used: Standard Monitors Preoperative Comments:: 54 y/o male with history of HTN, Type 2 DM, depression and diabetic peripheral neuropathy presents for colonoscopy screening pre-op. He has a family history of colon cancer in his brother
[2024-05-19] MEDS: Lactated Ringers 1,000 ML 80 ML IV (08:45)
[2024-05-19 09:11] VITALS: BMI 31.8
--- NOTE | 2024-05-19 09:44 | BOWEL_PTH ---
PATIENT: Lino Ruiz LOC: [facility] U#:[id number] AGE/SX: 54/M ROOM: RE05/19/[address]: Ozzy Garcia MD : 1970 BED: DIS: 05/19/2024 SPEC #: [id number] RECD: 05/19/24 12:56 STATUS: ERIK RE #: [id number] LIV: 05/19/24 09:[address]: Ozzy Garcia DEPT: Surgical Specimen RECD BY: Patricia Elias ENTERED: 05/19/24 12:58 SP TYPE: Bowel OTHR DR: Jerry Ibrahim Tissues: 1 - BIOPSY BOWEL 2 - BIOPSY BOWEL Procedures: GROSS AND MICRO LEVEL 4 Comments: [id number]
[2024-05-19 09:56] VITALS: BP 99/68; PULSE 68; RESP 14; TEMP 36.1; O2SAT 97
--- NOTE | 2024-05-19 10:11 | W.ANESPOSTOP ---
Postoperative Evaluation Date, Time and Location Date Performed: 05/19/24 Time Performed: 10:11 Patient Location: Day Surgery Unit Vital Signs Most Recent Imported Vital Signs: Most Recent Vital Signs Temp Pulse Resp BP Pulse Ox 36.3 C L 69 16 172/105 H 100 05/19/24 08:11 05/19/24 08:11 05/19/24 08:11 05/19/24 08:11 05/19/24 08:11 Pain Score Most Recent Pain Score: Most Recent Pain Score Pain Level 0 05/19/24 08:11 Assessment Mental Status: Awake (Alert & Oriented to Patient Baseline) Airway and Respiratory Function: Patent airway with normal (patient baseline) respiratory exam Cardiovascular Function: Hemodynamically Stable Hydration Status: Adequately Hydrated Nausea & Vomiting: No Nausea or Vomiting Pain: Pt. Denies Any Pain Peripheral Nerve Block: Patient did not receive a nerve block
[2024-05-19 10:40] VITALS: BP 166/98; PULSE 66; RESP 15; TEMP 36.3; O2SAT 97
== END 2024-05-19 11:05 | disposition home or self-care (01) ==
PROVIDERS: PCP Internal Medicine; Visit Provider Surgery
PROC: 0DJD8ZZ Inspection of Lower Intestinal Tract, Via Natural or Artificial Opening Endoscopic (ICD-10-PCS; CPT 45378; principal; 2024-05-19 09:00)
DX: Z12.11 Encounter for screening for malignant neoplasm of colon (principal); I10 Essential (primary) hypertension; Z80.0 Family history of malignant neoplasm of digestive organs; D12.5 Benign neoplasm of sigmoid colon; D12.4 Benign neoplasm of descending colon
CPT/HCPCS: 45380; 88305; J2250; J2704

== ENCOUNTER 2024-08-20 14:12 | Emergency (ER) | payer BC, SELFPAY ==
[2024-08-20] VITALS (36 sets, daily range): BP systolic 137–219; BP diastolic 66–114; PULSE 63–83; RESP 9–20; TEMP 36.8; O2SAT 75–99
--- NOTE | 2024-08-20 14:20 | ED.GENADUL_ITS ---
Discharge Plan Disposition Patient Disposition: Home Condition: Improving Discharge Details Clinical Impression: Anaphylaxis Primary Care Provider: Jerry Ibrahim ED Provider: Navneet Moore Home Meds and New Rx's Prescriptions: New epinephrine [EpiPen 2-Moiz] 0.3 mg/0.3 mL auto-injector 0.3 ml IM ONCE Qty: 2 0RF Rx Instructions: as a single dose; may repeat once No Action magnesium oxide 400 mg (241.3 mg magnesium) tablet 200 mg PO DAILY losartan-hydrochlorothiazide 100-25 mg tablet 1 tab PO DAILY polyethylene glycol 3350 17 gram/dose powder 17 g PO ONCE Qty: 238 0RF Rx Instructions: Take per colonoscopy instructions provided by ordering providers office terazosin 5 mg capsule 5 mg PO QHS valacyclovir 500 mg tablet 500 mg PO BID Patient Comments: pt reports not taking anymore albuterol sulfate [Ventolin HFA] 90 mcg/actuation HFA aerosol inhaler 2 puff IH Q4H PRN sertraline [Zoloft] 50 mg tablet 50 mg PO DAILY methocarbamol 1,000 mg tablet 1,000 mg PO QID meloxicam 15 mg tablet 15 mg PO DAILY Levemir U-100 Insulin 100 unit/mL solution 80 unit SC QHS Patient Comments: 40 U HS 05/18 metformin [Glucophage] 1,000 MG tablet 1,000 mg PO BID@0800,1700 gabapentin 300 MG capsule 600 mg PO BID amlodipine 5 mg tablet 10 mg PO DAILY Discharge Instructions Instructions: Anaphylaxis Additional Instructions: Please follow-up with your primary care physician. Return to the emergency department for any worsening symptoms HPI General Date/Time Provider Initiated Documentation: 08/20/24 14:19 . 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 Related Data Home Medications ?Medication ?Instructions ?Recorded ?Confirmed metformin 1,000 mg tablet 1,000 mg PO BID@0800,1700 05/02/13 08/20/24 (Glucophage) gabapentin 300 mg capsule 600 mg PO BID 09/22/13 08/20/24 albuterol sulfate 90 mcg/actuation 2 puff inhalation Q4H PRN 12/04/19 08/20/24 aerosol inhaler (Ventolin HFA) sertraline 50 mg tablet (Zoloft) 50 mg PO DAILY 12/04/19 08/20/24 terazosin 5 mg capsule 5 mg PO QHS 12/04/19 08/20/24 valacyclovir 500 mg tablet 500 mg PO BID 12/04/19 08/20/24 amlodipine 5 mg tablet 10 mg PO DAILY 12/13/19 08/20/24 losartan 100 1 tab PO DAILY 12/13/19 08/20/24 mg-hydrochlorothiazide 25 mg tablet magnesium oxide 400 mg (241.3 mg 200 mg PO DAILY 12/13/19 08/20/24 magnesium) tablet meloxicam 15 mg tablet 15 mg PO DAILY 08/31/23 08/20/24 methocarbamol 1,000 mg tablet 1,000 mg PO QID 08/31/23 08/20/24 insulin detemir U-100 100 unit/mL 80 unit subcut QHS 04/27/24 08/20/24 subcutaneous solution (Levemir U-100 Insulin) polyethylene glycol 3350 17 17 g PO ONCE #238 grams 04/27/24 08/20/24 gram/dose oral powder epinephrine 0.3 mg/0.3 mL 0.3 ml IM ONCE #2 ea 08/20/24 injection, auto-injector (EpiPen 2-Moiz) Previous Rx's ?Medication ?Instructions ?Recorded polyethylene glycol 3350 17 17 g PO ONCE #238 grams 04/27/24 gram/dose oral powder epinephrine 0.3 mg/0.3 mL 0.3 ml IM ONCE #2 ea 08/20/24 injection, auto-injector (EpiPen 2-Moiz) Allergies Allergy/AdvReac Type Severity Reaction Status Date / Time venom-honey bee Allergy Severe Anaphylaxis Verified 08/20/24 14:23 lisinopril AdvReac Mild Other (See Verified 08/20/24 14:23 Comment) General KALIN: 4 Exam Narrative Exam Narrative: Alert interactive Tolerating secretions normal voice no stridor Shallow quiet breath sounds bilaterally no wheeze rales or rhonchi appreciated Localized erythema to right lateral neck no stinger in place Normal heart sounds no murmurs rubs or gallops Abdomen soft nontender nondistended No peripheral edema No systemic rash noted Medical Decision Making 54-year-old 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 Close reassessment of symptomatology to determine disposition 16: 45 resting comfortably hemodynamically stable no acute distress. Will continue to assess for any worsening signs or recrudescence of anaphylaxis 18: 09 resting comfortably no acute distress. Asymptomatic. Hemodynamically stable. Home care instructions and strict return precautions given. Will be given prescription for EpiPen Quality:[facility] Health Related Social Needs: No Data to Display PFSH All Active Problems (Updated 08/20/24 @ 18:10 by Navneet Moore MD) Anaphylaxis (Acute) Encounter for screening colonoscopy (Acute) Ulcer of other part of foot (Acute) Hematuria (Acute) Abscess of leg, right (Acute) Abscess of left thigh (Acute) Abscess of right thigh (Acute) Herniation of intervertebral disc between L5 and S1 (Acute) Type 2 diabetes mellitus (Chronic) Achilles rupture, left (Acute) Plantar fascial fibromatosis (Acute) Subcutaneous mass of right foot (Acute) plantar aspect Hypertension (Chronic) Depression (Chronic) Herpes, genital (Acute) Overweight (Acute) Diabetic retinopathy, background (Acute) Neck pain, chronic (Acute) Diabetic peripheral neuropathy (Acute) Night sweats (Acute) Tinea pedis (Acute) Preventative health care (Acute) Cough (Acute) Sexual dysfunction (Acute) Bronchial pneumonia (Acute) Syncope (Chronic) Tendonitis, Achilles, right (Acute) Medical History (Updated 08/20/24 @ 18:10 by Navneet Moore MD) Tubular adenoma of colon (~05/2024) Family hx of colon cancer Brother Sleep apnea does not use device Diabetes Surgical History (Updated 05/23/24 @ 07:47 by Urmila Bundy) History of colonoscopy (~05/2024) Hx of foot surgery Hx of wisdom tooth extraction Hx of arthroscopy of shoulder Hx of elbow surgery torn tendon History of nasal surgery H/O arthroscopic knee surgery Family History (Updated 04/27/24 @ 13:47 by ERIC Evans) Brother Colon cancer Social History (Reviewed 04/27/24 @ 13:47 by MARA Evans Smoking/Tobacco Use Status: Never Smoking risk assessment performed?: Yes Alcohol Intake: current Alcohol Intake frequency: holidays/special occasions only Alcohol type: beer Drug use: Never Substance use type: does not use Household members: none Housing: house Number of Children: 0 current occupation: employed - [employer] Current gender identity: male Additional Social history: [employer]
--- OUTSIDE RECORDS SUMMARY | 2024-08-20 14:21 | XMS_ITS ---
Author Organization Unknown Address [address] [place] [address] [phone] Phone Care Team Providers Care Runner Out Name Role Phone DAVE Meza Attending Unavailable LOLA Herr Primary Unavailable Social History Type Status Start Date End Date Code Code Syst em Sex Male Hospital Discharge Instructions Should you have any questions prior to discharge, please contact a member of your healthcare team. If you have left the hospital and have any questions, please contact your primary care physician. Reason For Referral No Data Found Allergies and Adverse Reactions Allergy Substance Reaction Severity Start Date Concern Status Co de Code System LISINOPRIL Active 06338 RxNorm Plan of Treatment MRI LOWER EXT W/O CONTRAST 08/06/2023 Encounters Encounter Diagnosis Start Date Code Code Sys tem Chronic ulcer of foot 05/25/2023 893943385 SNOMED -CT Personal Care Team Section Performer Name Performer Role Active Date Inactive Da suresh
--- OUTSIDE RECORDS SUMMARY | 2024-08-20 14:22 | XMS_ITS ---
Author Organization Unknown Address [address] [place] [address] [phone] Phone Care Team Providers Care Centrifugal Supervisor Name Role Phone DAVE Meza Attending Unavailable LOLA Herr Primary Unavailable Results HEMOGLOBIN A1C* - Collect Da te/Time: 06/30/2023 15:23 [facility] ID: [id number] [address] [place] [address], [address] LOINC: 4548-4 Test Value Unit Reference Range Code Code System Flag Hgb A1c 9.3 % L=3.8 H=5.7 4548-4 LOINC H MEAN BLOOD GLUCOSE 224 mg/dL 18545-6 LOINC COMPREHENSIVE METABOLIC PANE L (CMP) - Collect Date/Time: 06/30/2023 15:23 [facility] ID: [id number] [address] [place] [address], [address] LOINC: 13370-2 Test Value Unit Reference Range Code Code System Flag GLUCOSE 242 mg/dL L=70 H=116 2345-7 LOINC H BUN 22 mg/dL L=6 H=25 3094-0 LOINC CREATININE 1.45 mg/dL L=0.67 H=1.17 2160-0 LOINC H SODIUM SERUM 138 mmol/L L=136 H=145 2951-2 LOINC POTASSIUM SERUM 4.4 mmol/L L=3.4 H=5.2 2823-3 LOINC CHLORIDE SERUM 103 mmol/L L=96 H=110 2075-0 LOINC CARBON DIOXIDE (CO2) 29 mmol/L L=22 H=34 2028-9 LOINC ANION GAP 6.0 mmol/L 81392-0 LOINC CALCIUM SERUM 9.0 mg/dL L=8.2 H=10.2 89322-7 LOINC BILIRUBIN TOTAL 0.6 mg/dL L=0.0 H=1.3 1975-2 LOINC ALK. PHOS. 86 U/L L=46 H=116 6768-6 LOINC SGOT (AST) 19 U/L L=15 H=37 1920-8 LOINC SGPT (ALT) 13 U/L L=12 H=78 1742-6 LOINC TOTAL PROTEIN 7.0 gm/dL L=6.0 H=8.0 2885-2 LOINC ALBUMIN 3.5 gm/dL L=3.4 H=5.0 1751-7 LOINC AGE 53 years eGFR (non-Afr.Amer.) 51 mL/min 59770-9 LOINC eGFR (Afr-Sudanese) 62 mL/min 86467-6 LOINC Social History Type Status Start Date End [...] Status Co de Code System LISINOPRIL Active 10746 RxNorm Plan of Treatment MRI LOWER EXT W/O CONTRAST 08/06/2023 Encounters Encounter Diagnosis Start Date Code Code Sys tem Non-pressure chronic ulcer o f other part of left foot with fat layer exposed 06/30/2023 SNOMED-CT Personal Care Team Section Performer Name Performer Role Active Date Inactive Da te
--- OUTSIDE RECORDS SUMMARY | 2024-08-20 14:22 | XMS_ITS ---
Author Organization Unknown Address [address] [place] [address] [phone] Phone Care Team Providers Care Sales Representative Aircraft Name Role Phone DAVE Meza Attending Unavailable LOLA Herr Primary Unavailable Results XR TOE(S) 2V OR MORE LT* - C ompleted: 06/30/2023 14:40 [facility]: [place], [place] [address] PACS GROUND PRODUCTS DIRECTOR REPORT Patient Name: LUDY JARA MRN: Sex: : Age: [id number] M 1970 53 Account: Accession: Admit: StayType: [id number] 06/30/2023 CLINIC Ordered: Order ID: Submitted: Ordering Provider: 06/30/2023 14:28 [id number] [facility] MARTY ACOSTA Completed: Technologist: Resulted: 06/30/2023 14:40 [facility] 06/30/2023 15:15 Study Description: XR TOES 2V OR MORE LT Study Reason: Pain Technique: 2D digital imaging was performed. 3 images were obtained. COMPARISON: None. FINDINGS: Bones: No acute fractures present. There is an erosion at the medial aspect of the head of the proximal phalanx of the great toe. Joint space is otherwise well-maintained. Joints: No dislocation is present. Soft tissues: There is soft tissue swelling of the great toe. IMPRESSION: Erosion of the head of the proximal phalanx of the great toe with soft tissue swelling. An inflammatory arthritis or infection should be considered. Report Digitally Signed by Thompson Garcia on 06/30/2023 03:15 PM EDT Social History Type Status Start Date End [...] Status Co de Code System LISINOPRIL Active 18315 RxNorm Plan of Treatment MRI LOWER EXT W/O CONTRAST 08/06/2023 Encounters Encounter Diagnosis Start Date Code Code Sys tem Chronic ulcer of foot 06/30/2023 [id number] SNOMED -CT Personal Care Team Section Performer Name Performer Role Active Date Inactive Da te
--- OUTSIDE RECORDS SUMMARY | 2024-08-20 14:22 | XMS_ITS ---
Author Organization Unknown Address [address] [place] [address] [phone] Phone Care Team Providers Care Threat Analyst Name Role Phone DAVE Meza Attending Unavailable [...] Status Co de Code System LISINOPRIL Active 71651 RxNorm Plan of Treatment MRI LOWER EXT W/O CONTRAST 08/06/2023 Encounters Encounter Diagnosis Start Date Code Code Sys tem Chronic ulcer of foot 06/03/2023 900154456 SNOMED -CT Personal Care Team Section Performer Name Performer Role Active Date Inactive Da suresh
--- OUTSIDE RECORDS SUMMARY | 2024-08-20 14:22 | XMS_ITS ---
Author Organization Unknown Address [address] [place] [address] [phone] Phone Care Team Providers Care Prototype Technician Name Role Phone DAVE Meza Attending Unavailable [...] Status Co de Code System LISINOPRIL Active 01306 RxNorm Plan of Treatment MRI LOWER EXT W/O CONTRAST 08/06/2023 Encounters Encounter Diagnosis Start Date Code Code Sys tem Chronic ulcer of foot 06/16/2023 [id number] SNOMED -CT Personal Care Team Section Performer Name Performer Role Active Date Inactive Da suresh
--- OUTSIDE RECORDS SUMMARY | 2024-08-20 14:23 | XMS_ITS ---
Author Organization Unknown Address [address] [place] [address] [phone] Phone Care Team Providers Care Social Economist Name Role Phone DAVE Meza Attending Unavailable [...] Status Co de Code System LISINOPRIL Active 36852 RxNorm Plan of Treatment MRI LOWER EXT W/O CONTRAST 08/06/2023 Encounters Encounter Diagnosis Start Date Code Code Sys tem Canceled operative procedure 08/03/2023 29687856 SNOMED-CT Personal Care Team Section Performer Name Performer Role Active Date Inactive Da suresh
--- OUTSIDE RECORDS SUMMARY | 2024-08-20 14:23 | XMS_ITS ---
Author Organization Unknown Address [address] [place] [address] [phone] Phone Care Team Providers Care Sock Knitting Machine Operator Name Role Phone DAVE Meza Attending Unavailable LOLA Herr Primary Unavailable Results XR TOE(S) 2V OR MORE LT* - C ompleted: 07/14/2023 15:31 [facility]: [place], [place] [address] PACS DISC RECORDIST REPORT Patient Name: LUDY JARA MRN: Sex: : Age: [id number] M 1970 53 Account: Accession: Admit: StayType: [id number] 07/14/2023 CLINIC Ordered: Order ID: Submitted: Ordering Provider: 07/14/2023 15:01 [id number] [facility] MARTY ACOSTA Completed: Technologist: Resulted: 07/14/2023 15:01 07/14/2023 15:15 Study Description: XR TOE(S) 2V OR MORE LT Study Reason: Numbness TECHNIQUE: 3 Views COMPARISON: Left great toe 30 June 2023 FINDINGS: There is a smoothly marginated erosion at the medial distal distal aspect of the proximal phalanx of the great toe. There has been no further progression. There are mild degenerative changes of the interphalangeal joint and first MTP joint. No new findings. IMPRESSION: Stable appearance of road erosion at the distal aspect of the proximal phalanx Report Digitally Signed by Arabella Lara on 07/14/2023 03:15 PM EDT Social History Type Status [...] Status Co de Code System LISINOPRIL Active 30375 RxNorm Plan of Treatment MRI LOWER EXT W/O CONTRAST 08/06/2023 Encounters Encounter Diagnosis Start Date Code Code Sys tem Chronic ulcer of foot 07/14/2023 040922221 SNOMED -CT Personal Care Team Section Performer Name Performer Role Active Date Inactive Da te
[2024-08-20] MEDS: EPINEPHrine 0.3 MG KIT IM ×2 (14:24→18:22)
--- OUTSIDE RECORDS SUMMARY | 2024-08-20 14:24 | XMS_ITS ---
Author Organization Unknown Address [address] [place] [address] [phone] Phone Care Team Providers Care State Attorney Name Role Phone DAVE Meza Attending Unavailable LOLA Herr Primary Unavailable Results MR LOWER EXT NOT JOINT LT WO CONTRAST - Completed: 08/06/2023 11:40 [facility]: RADIOLOGY [place], [place] [address] PACS DISTRIBUTOR SALES CONSULTANT REPORT Patient Name: LUDY JARA MRN: Sex: : Age: [id number] M 1970 53 Account: Accession: Admit: StayType: [id number] 08/06/2023 E/R Ordered: Order ID: Submitted: Ordering Provider: 08/06/2023 10:54 [id number] [facility] MARTY ACOSTA Completed: Technologist: Resulted: 08/06/2023 11:41 [facility] 08/06/2023 13:20 Study Description: MR LOWER EXT NOT JOINT LT WO CONTRAST Study Reason: Osteomyelitis TECHNIQUE: Multiplanar multisequence MRI was performed without intravenous contrast. COMPARISON: Plain films 07/28/2023 reviewed. FINDINGS: SKIN/SUBCUTANEOUS: There is ulceration over the distal aspect of the great toe over the dorsal aspect. BONES/JOINTS: There is STIR bright abnormal signal throughout the distal phalanx of the great toe. On the T1 images there is confluent hypointense signal in the distal phalanx with additional ghosting of the tuft of the distal phalanx. There is no joint effusion in the interphalangeal joint. Mild edema is noted in the distal half of the proximal phalanx seen on STIR sequence but there is no abnormal hypointense intraosseous signal on T1 images in the middle phalanx. There is some degenerative change in the great toe metatarsophalangeal joint. Small joint effusion at this level. No evidence of osteomyelitis in the great toe metatarsal. Incidentally noted is abnormal signal within the more medial of the 2 sesamoid bones subjacent to the great toe metatarsal head. However on T1 images there appears to be a fracture line in this sesamoid. SOFT TISSUES: Some inflammatory signal is noted in the musculature on the undersurface of the great toe. No abscess evident. Tendons are intact. No tenosynovitis. No evidence of interdigital neuroma. IMPRESSION: 1. Findings are consistent with osteomyelitis of the distal phalanx of the great toe. 2. Other findings as above including what appears to be a fracture in the more medial of the 2 sesamoid bones subjacent to the great toe metatarsal head. Report Digitally Signed by Enrrique Whelan on 08/06/2023 01:20 PM EDT Social History Type Status Start [...] Status Co de Code System LISINOPRIL Active 98789 RxNorm Plan of Treatment MRI LOWER EXT W/O CONTRAST 08/06/2023 Encounters Encounter Diagnosis Start Date Code Code Sys tem Osteomyelitis, unspecified 08/06/2023 S NOMED-CT Personal Care Team Section Performer Name Performer Role Active Date Inactive Da te
--- OUTSIDE RECORDS SUMMARY | 2024-08-20 14:24 | XMS_ITS ---
Author Organization Unknown Address [address] [place] [address] [phone] Phone Care Team Providers Care Machine Precision Engraver Name Role Phone DAVE Meza Attending Unavailable LOLA Herr Primary Unavailable Results XR TOE(S) 2V OR MORE LT* - C ompleted: 07/28/2023 15:54 [facility]: [place], [place] [address] PACS SHIP SCRAPER REPORT Patient Name: LUDY JARA MRN: Sex: : Age: [id number] M 1970 53 Account: Accession: Admit: StayType: [id number] 07/28/2023 CLINIC Ordered: Order ID: Submitted: Ordering Provider: 07/28/2023 14:41 [id number] BSK MARTY ACOSTA Completed: Technologist: Resulted: 07/28/2023 15:54 BSK 07/28/2023 18:45 Study Description: XR TOES 2V OR MORE LT Study Reason: toe pain TECHNIQUE: 2D digital imaging was performed. COMPARISON: Prior x-rays 07/14/2023. FINDINGS: NUMBER OF VIEWS: 3 Great toe distal ulcer noted. No fractures. No obvious radiographic evidence of osteomyelitis of the subjacent tuft of the distal phalanx. Smooth erosion on the distal medial aspect proximal phalanx remains stable. No new additional osseous findings. IMPRESSION: As above without new radiographic evidence of osteomyelitis. Report Digitally Signed by Enrrique Whelan on 07/28/2023 06:45 PM EDT Social History Type Status Start [...] Status Co de Code System LISINOPRIL Active 39082 RxNorm Plan of Treatment MRI LOWER EXT W/O CONTRAST 08/06/2023 Encounters Encounter Diagnosis Start Date Code Code Sys tem Chronic ulcer of foot 07/28/2023 851292082 SNOMED -CT Personal Care Team Section Performer Name Performer Role Active Date Inactive Da te
--- OUTSIDE RECORDS SUMMARY | 2024-08-20 14:24 | XMS_ITS ---
Author Organization Unknown Address [address] [place] [address] [phone] Phone Care Team Providers Care Voting Machine Mechanic Name Role Phone DAVE Meza Attending Unavailable LOLAPIERRE FARRAR Nemesio Primary Unavailable Results GRAM STAIN* - Collect Date/T vito: 08/02/2023 15:05 [facility] ID: [id number] [address] [place] [address], [phone] LOINC: 664-3 Test Value Unit Reference Range Code Code System Flag SOURCE- Other WBC s few [employer] Gram neg rods Social History Type Status Start Date End [...] Status Co de Code System LISINOPRIL Active 69643 RxNorm Plan of Treatment MRI LOWER EXT W/O CONTRAST 08/06/2023 Encounters Encounter Diagnosis Start Date Code Code Sys tem Acute osteomyelitis of ankle and/or foot 08/02/2023 804358250 SNOMED-CT Personal Care Team Section Performer Name Performer Role Active Date Inactive Da te
--- OUTSIDE RECORDS SUMMARY | 2024-08-20 14:25 | XMS_ITS ---
Author Organization Unknown Address [address] [place] [address] [phone] Phone Care Team Providers Care Animation Camera Operator Name Role Phone DAVE Meza Attending [...] Status Co de Code System LISINOPRIL Active 00548 RxNorm Plan of Treatment MRI LOWER EXT W/O CONTRAST 08/06/2023 Encounters Encounter Diagnosis Start Date Code Code Sys tem Acute osteomyelitis of ankle and/or foot 08/19/2023 831594279 SNOMED-CT Personal Care Team Section Performer Name Performer Role Active Date Inactive Da suresh
--- OUTSIDE RECORDS SUMMARY | 2024-08-20 14:25 | XMS_ITS ---
Author Organization Unknown Address [address] [place] [address] [phone] Phone Care Team Providers Care Tree Fruit And Nut Crops Farmer Name Role Phone DAVE Meza Attending Unavailable Social History Type Status Start Date [...] Status Co de Code System LISINOPRIL Active 25958 RxNorm Plan of Treatment MRI LOWER EXT W/O CONTRAST 08/06/2023 Encounters Encounter Diagnosis Start Date Code Code Sys tem Acute osteomyelitis of ankle and/or foot 08/12/2023 271993333 SNOMED-CT Personal Care Team Section Performer Name Performer Role Active Date Inactive Da te
--- OUTSIDE RECORDS SUMMARY | 2024-08-20 14:25 | XMS_ITS ---
Author Organization Unknown Address [address] [place] [address] [phone] Phone Care Team Providers Care Regional Marketing Manager Name Role Phone DAVE eMza Attending Unavailable RUPERT Montenegro HVAC FIELD SERVICE TECHNICIAN Unavailable LOLA Herr Primary Unavailable Results CULT ANAEROBIC ([facility]) CULTU RE - Collect Date/Time: 08/12/2023 08:46 [facility] ID: [id number] [address] [place] [address], [phone] LOINC: 635-3 Test Value Unit Reference Range Code Code System Flag Result ACTINOMYCES ODONTOLYTICUS A GRAM STAIN* - Collect Date/T vito: 08/12/2023 08:46 [facility] ID: [id number] [address] [place] [address], [phone] LOINC: 664-3 Test Value Unit Reference Range Code Code System Flag SOURCE- Other WBC s few [employer] Gram pos cocci GRAM STAIN* - Collect Date/T vito: 08/12/2023 08:46 [facility] ID: [id number] [address] [place] [address], [phone] LOINC: 664-3 Test Value Unit Reference Range Code Code System Flag SOURCE- Other WBC s few [employer] Gram pos cocci CULT ANAEROBIC ([facility]) CULTU RE - Collect Date/Time: 08/12/2023 08:46 [facility] ID: [id number] [address] [place] [address] [place], [phone] LOINC: 635-3 Test Value Unit Reference Range Code Code System Flag Result IVON Meza BASIC METABOLIC PANEL (BMP) - Collect Date/Time: 08/12/2023 07:00 [facility] ID: [id number] [address] [place] [address], [address] LOINC: 17663-8 Test Value Unit Reference Range Code Code System Flag GLUCOSE 256 mg/dL L=70 H=116 2345-7 LOINC H BUN 21 mg/dL L=6 H=25 3094-0 LOINC CREATININE 1.00 mg/dL L=0.67 H=1.17 2160-0 LOINC SODIUM SERUM 135 mmol/L L=136 H=145 2951-2 LOINC L POTASSIUM SERUM 4.3 mmol/L L=3.4 H=5.2 2823-3 LOINC CHLORIDE SERUM 100 mmol/L L=96 H=110 2075-0 LOINC CARBON DIOXIDE (CO2) 26 mmol/L L=22 H=34 2028-9 LOINC ANION GAP 9.0 mmol/L 59338-5 LOINC CALCIUM SERUM 9.1 mg/dL L=8.2 H=10.2 85742-4 LOINC AGE 53 years eGFR (non-Afr.Amer.) 79 mL/min 15612-8 LOINC eGFR (Afr-Cymro) 95 mL/min 98084-0 LOINC CBC W/ DIFFERENTIAL* - Colle ct Date/Time: 08/12/2023 07:00 [facility] ID: [id number] [address] [place] [address], [address] LOINC: 12712-9 Test Value Unit Reference Range Code Code System Flag WBC 5.01 th/cmm L=5.00 H=10.00 6690-2 LOINC NEUT % 60.9 % L=40.0 H=80.0 LYMPH % 25.9 % L=10.0 H=50.0 MONO % 9.6 % L=2.0 H=12.0 42439-2 LOINC EOS % 2.6 % L=0.0 H=8.0 BASO % 0.8 % L=0.0 H=3.0 IG % 0.2 % L=0.0 H=1.1 2514-8 LOINC NRBC % 0.0 % L=0.0 H=0.0 72132-8 LOINC NEUT abs count 3.1 th/cmm L=1.6 H=8.4 751-8 LOINC LYMPH abs count 1.3 th/cmm L=1.5 H=4.0 731-0 LOINC L MONO abs count 0.5 th/cmm L=0.2 H=1.0 742-7 LOINC EOS abs count 0.1 th/cmm L=0.0 H=0.5 711-2 LOINC BASO abs count 0.0 th/cmm L=0.0 H=0.2 704-7 LOINC IG abs count 0.0 th/cmm L=0.0 H=0.1 27524-6 LOINC NRBC abs count 0.0 mil/cmm L=0.0 H=0.0 90812-2 LOINC RBC 4.85 mil/cmm L=4.30 H=6.20 789-8 LOINC HEMOGLOBIN 14.7 gm/dL L=13.0 H=17.0 718-7 LOINC HEMATOCRIT 43 % L=45 H=52 4544-3 LOINC L MCV 89 fL L=82 H=92 787-2 LOINC MCH 30.3 pg L=27.0 H=31.0 785-6 LOINC MCHC 34.0 % L=32.0 H=36.0 786-4 LOINC RDW-SD 40.0 fL L=39.0 H=49.0 788-0 LOINC PLATELET COUNT 221 th/cmm L=150 H=450 777-3 LOINC NOVA GLUCOSE FINGER HEEL CAP ILLARY - Collect Date/Time: 08/12/2023 06:55 [facility] ID: [id number] [address] [place], [place], [phone] LOINC: 89826-0 Test Value Unit Reference Range Code Code System Flag GLUCOSE CAP 236 mg/dL L=70 H=116 48206-3 LOINC H Social History Type Status Start Date End Date Code Code Rochelle em Sex Male Vital Signs Vital Sign Value Unit Ely Value Ely Unit Date/Time Recent/Initial? Code Code System Body Mass Index 32.19 kg/m2 08/04/2023 14:04 Initial 14096 -5 LOINC Systolic Blood Pressure 171 mm[Hg] 08/12/2023 09:13 Initial 8480- 6 LOINC Diastolic Blood Pressure 95 mm[Hg] 08/12/2023 09:13 Initial 8462- 4 LOINC Body Surface Area 2.19 m2 08/04/2023 14:04 Initial 3140- 1 LOINC Height 175.260 0 cm 69.00 in 08/04/2023 14:04 Initial 8302- 2 LOINC O2 Saturation 97 % 2022 09:13 Initial 35901 -5 LOINC Pulse 59.0 /min 08/12/2023 09:13 Initial 8867- 4 LOINC Respiration 10 /min 08/12/20 09:13 Initial 9279- 1 LOINC Temperature 36.3 Destiny 97.3 F 08/12/20 09:13 Initial 8310- 5 LOINC Weight 98.88 kg 217.99 lbs 08/04/2023 14:04 Initial 39333 -7 LOINC Hospital Discharge Instructions Should you have any questions prior to discharge, please contact a member of your healthcare team. If you have left the hospital and have any questions, please contact your primary care physician. Reason For Referral No Data Found Procedures Procedure Name Date Status Code Code Maite meraz Amputation, Toe; Interphalangeal Joint 08/12/2023 complete d 68441 CPT Anesthesia, Nerves/Muscles/T endons & Fascia, Lower Leg/Ankle/Foot; NOS 08/12/2023 completed 45498 CPT Allergies and Adverse Reactions Allergy Substance Reaction Severity Start Date Concern Status Co de Code System LISINOPRIL Active 26177 RxNorm Plan of Treatment MRI LOWER EXT W/O CONTRAST 08/06/2023 Encounters Encounter Diagnosis Start Date Code Code Sys tem Other acute osteomyelitis, left ankle and foot 023 SNOMED-CT Personal Care Team Section Performer Name Performer Role Active Date Inactive Da te
--- OUTSIDE RECORDS SUMMARY | 2024-08-20 14:25 | XMS_ITS ---
Author Organization Unknown Address [address] [place] [address] [phone] Phone Care Team Providers Care Heel Scorer Name Role Phone DAVE Meza Attending Unavailable [...] Status Co de Code System LISINOPRIL Active 47893 RxNorm Plan of Treatment MRI LOWER EXT W/O CONTRAST 08/06/2023 Encounters Encounter Diagnosis Start Date Code Code Sys tem Acute osteomyelitis of ankle and/or foot 08/09/2023 858731434 SNOMED-CT Personal Care Team Section Performer Name Performer Role Active Date Inactive Da suresh
--- OUTSIDE RECORDS SUMMARY | 2024-08-20 14:26 | XMS_ITS ---
Author Organization Unknown Address [address] [place] [address] [phone] Phone Care Team Providers Care Auto Clutch Rebuilder Name Role Phone DAVE Meza Attending Unavailable LOLAPIERRE FARRAR Nemesio Primary Unavailable Results GRAM STAIN* - Collect Date/T vito: 09/15/2023 17:12 [facility] ID: [id number] [address] [place] [address], [phone] LOINC: 664-3 Test Value Unit Reference Range Code Code System Flag SOURCE- Other WBC s moderate [employer] Gram pos cocci SUSCEPTIBILITY OF BACTERIAL ORGANISM* - Collect Date/Time: 09/15/2023 16:00 [facility] ID: [id number] [address] [place] [address], [phone] LOINC: 71887-0 Test Value Unit Reference Range Code Code System Flag Result STAPHYLOCOCCUS CAPRAE A Report Status See Below Social History Type Status Start Date End [...] Status Co de Code System LISINOPRIL Active 49878 RxNorm Plan of Treatment MRI LOWER EXT W/O CONTRAST 08/06/2023 Encounters Encounter Diagnosis Start Date Code Code Sys tem Abscess of foot 09/15/2023 859290469 SNOMED-CT Personal Care Team Section Performer Name Performer Role Active Date Inactive Da te
--- OUTSIDE RECORDS SUMMARY | 2024-08-20 14:26 | XMS_ITS ---
Author Organization Unknown Address [address] [place] [address] [phone] Phone Care Team Providers Care Operations Advisor Name Role Phone DAVE Meza Attending Unavailable [...] Status Co de Code System LISINOPRIL Active 14445 RxNorm Plan of Treatment MRI LOWER EXT W/O CONTRAST 08/06/2023 Encounters Encounter Diagnosis Start Date Code Code Sys tem Abscess of foot 09/22/2023 013139070 SNOMED-CT Personal Care Team Section Performer Name Performer Role Active Date Inactive Da suresh
--- OUTSIDE RECORDS SUMMARY | 2024-08-20 14:26 | XMS_ITS ---
Author Organization Unknown Address [address] [place] [address] [phone] Phone Care Team Providers Care Automotive Metalsmith Name Role Phone DAVE Meza Attending Unavailable [...] Status Co de Code System LISINOPRIL Active 74793 RxNorm Plan of Treatment MRI LOWER EXT W/O CONTRAST 08/06/2023 Encounters Encounter Diagnosis Start Date Code Code Sys tem Abscess of foot 09/29/2023 727825509 SNOMED-CT Personal Care Team Section Performer Name Performer Role Active Date Inactive Da suresh
--- OUTSIDE RECORDS SUMMARY | 2024-08-20 14:26 | XMS_ITS ---
Author Organization Unknown Address [address] [place] [address] [phone] Phone Care Team Providers Care Attorney Name Role Phone DAVE Meza Attending [...] Status Co de Code System LISINOPRIL Active 25823 RxNorm Plan of Treatment MRI LOWER EXT W/O CONTRAST 08/06/2023 Encounters Encounter Diagnosis Start Date Code Code Sys tem 10/20/2023 [id number] SNOMED-CT Personal Care Team Section Performer Name Performer Role Active Date Inactive Da suresh
--- OUTSIDE RECORDS SUMMARY | 2024-08-20 14:27 | XMS_ITS ---
Author Organization Unknown Address [address] [place] [address] [phone] Phone Care Team Providers Care Mailroom Manager Name Role Phone DAVE Meza Attending Unavailable [...] Status Co de Code System LISINOPRIL Active 91124 RxNorm Plan of Treatment MRI LOWER EXT W/O CONTRAST 08/06/2023 Encounters Encounter Diagnosis Start Date Code Code Sys tem Abscess of foot 10/07/2023 601543566 SNOMED-CT Personal Care Team Section Performer Name Performer Role Active Date Inactive Da suresh
--- OUTSIDE RECORDS SUMMARY | 2024-08-20 14:27 | XMS_ITS ---
Author Organization Unknown Address [address] [place] [address] [phone] Phone Care Team Providers Care Retail Salesworker Name Role Phone DAVE Meza Attending Unavailable LOLA Herr Primary Unavailable Results CBC W/ DIFFERENTIAL* - Colle ct Date/Time: 10/27/2023 11:36 [facility] ID: [id number] [address] [place] [address], [address] LOINC: 34684-5 Test Value Unit Reference Range Code Code System Flag WBC 5.47 th/cmm L=5.00 H=10.00 6690-2 LOINC NEUT % 64.0 % L=40.0 H=80.0 LYMPH % 25.8 % L=10.0 H=50.0 MONO % 7.7 % L=2.0 H=12.0 98975-2 LOINC EOS % 1.8 % L=0.0 H=8.0 BASO % 0.5 % L=0.0 H=3.0 IG % 0.2 % L=0.0 H=1.1 2514-8 LOINC NRBC % 0.0 % L=0.0 H=0.0 07908-9 LOINC NEUT abs count 3.5 th/cmm L=1.6 H=8.4 751-8 LOINC LYMPH abs count 1.4 th/cmm L=1.5 H=4.0 731-0 LOINC L MONO abs count 0.4 th/cmm L=0.2 H=1.0 742-7 LOINC EOS abs count 0.1 th/cmm L=0.0 H=0.5 711-2 LOINC BASO abs count 0.0 th/cmm L=0.0 H=0.2 704-7 LOINC IG abs count 0.0 th/cmm L=0.0 H=0.1 49945-8 LOINC NRBC abs count 0.0 mil/cmm L=0.0 H=0.0 50269-9 LOINC RBC 5.18 mil/cmm L=4.30 H=6.20 789-8 LOINC HEMOGLOBIN 15.8 gm/dL L=13.0 H=17.0 718-7 LOINC HEMATOCRIT 47 % L=45 H=52 4544-3 LOINC MCV 90 fL L=82 H=92 787-2 LOINC MCH 30.5 pg L=27.0 H=31.0 785-6 LOINC MCHC 33.8 % L=32.0 H=36.0 786-4 LOINC RDW-SD 41.6 fL L=39.0 H=49.0 788-0 LOINC PLATELET COUNT 214 th/cmm L=150 H=450 777-3 LOINC BASIC METABOLIC PANEL (BMP) - Collect Date/Time: 10/27/2023 11:36 [facility] ID: [id number] [address] [place] [address], [address] LOINC: 34627-5 Test Value Unit Reference Range Code Code System Flag GLUCOSE 200 mg/dL L=70 H=116 2345-7 LOINC H BUN 22 mg/dL L=6 H=25 3094-0 LOINC CREATININE 1.34 mg/dL L=0.67 H=1.17 2160-0 LOINC H SODIUM SERUM 137 mmol/L L=136 H=145 2951-2 LOINC POTASSIUM SERUM 4.9 mmol/L L=3.4 H=5.2 2823-3 LOINC CHLORIDE SERUM 100 mmol/L L=96 H=110 2075-0 LOINC CARBON DIOXIDE (CO2) 32 mmol/L L=22 H=34 2028-9 LOINC ANION GAP 4.7 mmol/L 88854-0 LOINC CALCIUM SERUM 8.8 mg/dL L=8.2 H=10.2 17042-5 LOINC AGE 53 years eGFR (non-Afr.Amer.) 56 mL/min 75546-8 LOINC eGFR (Afr-Scottish) 68 mL/min 26792-9 LOINC XR TOE(S) 2V OR MORE LT* - C ompleted: 10/27/2023 11:21 LOINC: [facility] RADIOLOGY [place], [place] [address] PACS MANAGEMENT DEPARTMENT CHAIR REPORT Patient Name: LUDY JARA MRN: Sex: : Age: [id number] M [id number] Account: Accession: Admit: StayType: [id number] 10/27/2023 CLINIC Ordered: Order ID: Submitted: Ordering Provider: 10/27/2023 08:04 [id number] MARTY WARD Completed: Technologist: Resulted: 10/27/2023 11:21 MLL 10/27/2023 11:23 Study Description: XR TOE(S) 2V OR MORE LT Study Reason: PRE OP LT 2ND TOE 3 Views TECHNIQUE: 2D digital imaging was performed. COMPARISON: 02 September 2023 FINDINGS: Marked soft tissue swelling around distal aspect of the second toe. Erosion at the tip of the distal phalanx. No foreign body. 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 Impression: Erosion at the tip of the distal phalanx of the second toe consistent with osteomyelitis. Report Digitally Signed by Arabella Lara on 10/27/2023 11:23 AM EST Social History Type Status Start Date End [...] Status Co de Code System LISINOPRIL Active 20894 RxNorm Plan of Treatment MRI LOWER EXT W/O CONTRAST 08/06/2023 Encounters Encounter Diagnosis Start Date Code Code Sys tem Acute osteomyelitis of ankle and/or foot 10/27/2023 [id number] SNOMED-CT Personal Care Team Section Performer Name Performer Role Active Date Inactive Da te
--- OUTSIDE RECORDS SUMMARY | 2024-08-20 14:27 | XMS_ITS ---
Author Organization Unknown Address [address] [place] [address] [phone] Phone Care Team Providers Care Cruise Coordinator Name Role Phone DAVE Meza Attending Unavailable [...] Status Co de Code System LISINOPRIL Active 33609 RxNorm Plan of Treatment MRI LOWER EXT W/O CONTRAST 08/06/2023 Encounters Encounter Diagnosis Start Date Code Code Sys tem Acute osteomyelitis of ankle and/or foot 11/10/2023 818384222 SNOMED-CT Personal Care Team Section Performer Name Performer Role Active Date Inactive Da suresh
--- OUTSIDE RECORDS SUMMARY | 2024-08-20 14:27 | XMS_ITS ---
Author Organization Unknown Address [address] [address] [phone] Phone Care Team Providers Care Drafter Civil (Cad) Name Role Phone DAVE Meza Attending Unavailable [...] Status Co de Code System LISINOPRIL Active 44720 RxNorm Plan of Treatment MRI LOWER EXT W/O CONTRAST 08/06/2023 Encounters Encounter Diagnosis Start Date Code Code Sys tem 10/14/2023 [id number] SNOMED-CT Personal Care Team Section Performer Name Performer Role Active Date Inactive Da suresh
--- OUTSIDE RECORDS SUMMARY | 2024-08-20 14:28 | XMS_ITS | Clinical Summary ---
Author Organization [facility] Address [address] [place] [address] Care Team Providers Care Prescription Eyeglass Maker Name Role Phone Mariella Ramon MD Primary Care Provider [phone] Allergies Active Allergy Reactions Criticality Noted Date Comments Lisinopril Low 02/26/2022 Medications Medication Sig Dispensed Refills Start Date End Date Status cefazolin sodium (CEFAZOLIN INTRAVENOUS) Inject into the vein daily. Active metFORMIN (GLUCOPHAGE) 1,000 mg tablet Take 1,000 mg by mouth 2 times daily. Active gabapentin (NEURONTIN) 600 mg tablet Take 600 mg by mouth 2 times daily. Active traMADol (ULTRAM) 50 mg tablet Take 50 mg by mouth every 6 hours as needed for Pain. Active terazosin (HYTRIN) 5 mg capsule Take 5 mg by mouth at bedtime. Active sertraline (ZOLOFT) 50 mg tablet Take 50 mg by mouth daily. Active valACYclovir (VALTREX) 500 mg tablet Take 500 mg by mouth 2 times daily. Active ALBUTEROL SULFATE INHALATION Inhale as directed as needed. Active insulin detemir U-100 (LEVEMIR) 100 unit/mL injection Inject into the skin at bedtime. Active MAGNESIUM OXIDE ORAL Take 200 mg by mouth daily. Active LOSARTAN-HYDROCHLORO THIAZIDE ORAL Take by mouth daily. Active amLODIPine (NORVASC) 10 mg tablet Take 10 mg by mouth daily. Active ondansetron (ZOFRAN) 4 mg tablet Take 8 mg by mouth every 8 hours as needed for Nausea. Active diphenhydrAMINE (BENADRYL) 50 mg capsuleIndications:H igh risk medication use Take 1 capsule by mouth as needed for up to 1 dose (hives). 2 capsule 02/26/2022 Active Active Problems Patient Care Coordination No te Formatting of this note migh t be different from the original. Clinic: Please confirm that PT does not have a Middle Initial. Hien Sheffield 02/20/2022 18:09 Problem Noted Date Diagnosed Date MSSA bacteremia 02/26/2022 Social History Tobacco Use Types Packs/Day Years Used Date Smoking Tobacco: Never Assessed Interpersonal Safety Answer Date Record ed Physically Hurt Never 06/03/2020 Verbally Threaten Not on file 06/03/2020 Sex and Gender Information Value Date Recorded Sex Assigned at Not on file Gender Identity Male 02/20/2022 18:09 EDT Sexual Orientation Not on file Last Filed Vital Signs Vital Sign Reading Time Taken Comments Blood Pressure 169/92 02/26/2022 0902 EDT Pulse 77 02/26/2022 0902 EDT Temperature 36.2 ??C (97.1 ??F) 02/26/2022 0902 EDT Respiratory Rate - - Oxygen Saturation - - Inhaled Oxygen Concentration - - Weight 103.9 kg (229 lb) 02/26/2022 0902 EDT pt reported Height - - Body Mass Index - - Plan of Treatment Health Maintenance Due Date Last Done Comments Hepatitis C Screen 1970 Hepatitis B Vaccine (1 of 3 - 19+ 3-dose series) 03/07 COVID-19 Vaccine (2023- season) 2024 Care Teams Prescription Eyeglass Maker Relationship Specialty Start Date End Date Mariella Ramon MD [address] [place] [address] PCP - General Family Medicine - Primary Care 02/23/22
--- OUTSIDE RECORDS SUMMARY | 2024-08-20 14:28 | XMS_ITS | Encounter Summary ---
Author Organization [facility] Address [address] [place] [address] Care Team Providers Care Shoe Repair Supervisor Name Role Phone Mariella Ramon MD Primary Care Provider [phone] Encounter Details Date Type Department Care Team (Late st Contact Info) Description 05/20/2024 Lab Requisition [facility] Pathology & Laboratory Medicine - [address] [address] Ozzy Garcia MD [address] [place] [address], [address] [place], [place] [address] Encounter for screening for malignant neoplasm of colon Social History Tobacco Use Types Packs/Day Years Used Date Smoking Tobacco: Never Assessed Interpersonal Safety Answer Date Record ed Physically Hurt Never 06/03/2020 Verbally Threaten Not on file 06/03/2020 Sex and Gender Information Value Date Recorded Sex Assigned at Not on file Gender Identity Male 02/20/2022 18:09 EDT Sexual Orientation Not on file documented as of this encounter Plan of Treatment Not on file documented as of this encounter Procedures Procedure Name Priority Date/Time Associated Diagnosis Comments SURGICAL PATHOLOGY Today 05/19/2024 9:44 EDT Encounter for screening for malignant neoplasm of colon documented in this encounter Results * SURGICAL PATHOLOGY (05/19/2024 9:44 EDT) Note to Patient The following pathology results have been interpreted by your pathologist and may be available to you before your health provider has had the opportunity to review them. Please allow time for your provider to receive these results and explore management options, if applicable. 05/25/2024 14:22 [facility] Final Diagnosis A. COLON, 65 CM, POLYP, BIOPSY: - Tubular adenoma fragments. B. COLON, 40 CM, POLYP, BIOPSY: - Tubular adenoma fragments. 05/25/2024 14:22 [facility] Attestation By the signature below, the attending physician certifies that they have 1) personally conducted a gross and/or microscopic examination of the described specimen(s), and/or personally interpreted the results of laboratory testing of the described specimen(s), and 2) personally rendered or confirmed the above diagnosis. 05/25/2024 14:22 [facility] at 1422 Clinical History Screening colonoscopy, polyps 05/25/2024 14:22 [facility] Gross Description A. Received in formalin labelled with proper patient identification (initials L, L) and 1. Polyp at 65 cm are 2 castro tissue fragments (0.7 x 0.3 x 0.1 cm in aggregate). Entirely submitted in A1. B. Received in formalin labelled with proper patient identification (initials L, L) and 2. Polyp at 40 cm is an aggregate of castro-brown tissue fragments (0.9 x 0.9 x 0.2 cm). Entirely submitted in B1. ERIC ABRAHAM(ASCP) 05/22/2024 7:34 05/25/2024 14:22 [facility] Performing Lab [facility] 05/25/2024 14:22 T [facility] Scanned Images 05/25/2024 14:22 [facility] Tissue POLYP OF COLON / Unknown 05/19/2024 9:44 EDT 05/20/2024 10:36 EDT Tissue specimen (specimen) POLYP OF COLON / Unknown 05/19/2024 9:44 EDT 05/20/2024 10:36 EDT Ozzy Garcia MD PATHOLOGY ORDERABLES [facility] [address] [place] [address] documented in this encounter Visit Diagnoses Diagnosis Encounter for screening for malignant neoplasm of colon Special screening for malignant neoplasms, colon documented in this encounter Care Teams Shoe Repair Supervisor Relationship Specialty Start Date End Date Mariella Ramon MD [address] [place] [address] PCP - General Family Medicine - Primary Care 02/23/22 documented as of this encounter
--- OUTSIDE RECORDS SUMMARY | 2024-08-20 14:28 | XMS_ITS | Encounter Summary ---
Author Organization [facility] Address [address] [place] [address] Care Team Providers Care Sailmaker Name Role Phone Mariella Ramon MD Primary Care Provider [phone] Encounter Details Date Type Department Care Team (Late st Contact Info) Description 08/12/2023 Lab Requisition [facility] Pathology & Laboratory Medicine - [address] [address] Outr Resulting Lab, Provider Social History Tobacco Use Types Packs/Day Years [...] Procedure Name Priority Date/Time Associated Diagnosis Comments ANAEROBE CULTURE, REFERENCE Routine 08/12/2023 8:46 EDT documented in this encounter Results * (ABNORMAL) ANAEROBE CULTURE, REFERENCE (08/12/2023 8:46 EDT) Organism ID Few Actinomyces odontolyticus(A ) 08/19/2023 11:02 EDT [facility] Tissue TOE STRUCTURE / Unknown 08/12/2023 8:46 EDT 08/12/2023 22:49 EDT Provider Outr Resulting Lab MICROBIOLOGY - GENERAL ORDERABLES [facility] [address] [place] [address] documented in this encounter Visit Diagnoses Not on filedocumented in this encounter Care Teams Sailmaker Relationship Specialty Start Date End Date Mariella Ramon MD [address] [place] [phone] PCP - General Family Medicine - Primary Care 02/23/22 documented as of this encounter
--- OUTSIDE RECORDS SUMMARY | 2024-08-20 14:28 | XMS_ITS | Referral Summary ---
Author Organization [facility] Address [address] [place] [address] Care Team Providers Care Rayon Winder Name Role Phone Mariella Ramon MD Primary Care Provider [phone] Allergies Active Allergy Reactions Criticality Noted Date [...] Mass Index - - Plan of Treatment Not on file Care Teams Rayon Winder Relationship Specialty Start Date End Date Mariella Ramon MD [address] [place] [address] PCP - General Family Medicine - Primary Care 02/23/22
--- OUTSIDE RECORDS SUMMARY | 2024-08-20 14:28 | XMS_ITS ---
Author Organization Unknown Address [address] [place] [address] [phone] Phone Care Team Providers Care Java Web Engineer Name Role Phone DAVE Meza Attending Unavailable [...] Status Co de Code System LISINOPRIL Active 22643 RxNorm Plan of Treatment MRI LOWER EXT W/O CONTRAST 08/06/2023 Encounters Encounter Diagnosis Start Date Code Code Sys tem 12/16/2023 [id number] SNOMED-CT Personal Care Team Section Performer Name Performer Role Active Date Inactive Da suresh
--- OUTSIDE RECORDS SUMMARY | 2024-08-20 14:28 | XMS_ITS | Encounter Summary ---
Author Organization [facility] Address [address] [place] [address] Care Team Providers Care Mold Press Operator Name Role Phone Mariella Ramon MD Primary Care Provider [phone] Encounter Details Date Type Department Care Team (Late st Contact Info) Description 09/20/2023 Lab Requisition [facility] Pathology & Laboratory Medicine - [address] [phone] Outr Resulting Lab, Provider Social History Tobacco [...] Procedure Name Priority Date/Time Associated Diagnosis Comments SUSCEPTIBILITY Routine 09/15/2023 16:00 EST documented in this encounter Results * (ABNORMAL) SUSCEPTIBILITY (09/15/2023 16:00 EST) Organism ID Staphylococcus caprae(A) VITEK SUSCEPTIBILITY 09/22/2023 7:48 EST [facility] Organism TOE STRUCTURE / Unknown 09/15/2023 16:00 EST 09/20/2023 16:39 EST Narrative Organism Antibiotic Method Susceptibility Staphylococcus caprae Cefazolin VITEK SUSCEPTIBILIT Y Deduced Susceptible Staphylococcus caprae Clindamycin VITEK SUSCEPTIBILIT Y >=4 ug/mL: Resistant Staphylococcus caprae Erythromycin VITEK SUSCEPTIBILIT Y >=8 ug/mL: Resistant Staphylococcus caprae Oxacillin VITEK SUSCEPTIBILIT Y <=0.25 ug/mL: Susceptible Staphylococcus caprae Trimethoprim-Sulfa me thoxazole VITEK SUSCEPTIBILITY <=10 ug/mL: Susceptible Staphylococcus caprae Vancomycin VITEK SUSCEPTIBILIT Y <=0.5 ug/mL: Susceptible Provider Outr Resulting Lab MICROBIOLOGY - GENERAL ORDERABLES [facility] [address] [place] [address] documented in this encounter Visit Diagnoses Not on filedocumented in this encounter Care Teams Mold Press Operator Relationship Specialty Start Date End Date Mariella Ramon MD [address] [place] [address] PCP - General Family Medicine - Primary Care 02/23/22 documented as of this encounter
--- OUTSIDE RECORDS SUMMARY | 2024-08-20 14:28 | XMS_ITS ---
Author Organization Unknown Address [address] [place] [address] [phone] Phone Care Team Providers Care Senior Medical Director Name Role Phone DAVE Meza Attending Unavailable [...] Procedures Procedure Name Date Status Code Code Syste m Amputation, Toe; Interphalangeal Joint 11/15/2023 complete d 09393 CPT Allergies and Adverse Reactions Allergy Substance Reaction Severity Start Date Concern Status Co de Code System LISINOPRIL Active 76468 RxNorm Plan of Treatment MRI LOWER EXT W/O CONTRAST 08/06/2023 Encounters Encounter Diagnosis Start Date Code Code Sys tem Other chronic osteomyelitis, left ankle and foot 11/15 SNOMED-CT Personal Care Team Section Performer Name Performer Role Active Date Inactive Da te
--- OUTSIDE RECORDS SUMMARY | 2024-08-20 14:28 | XMS_ITS ---
Author Organization Unknown Address [address] [place] [address] [phone] Phone Care Team Providers Care Video Effects Editor Name Role Phone DAVE Meza Attending Unavailable EVELIN Javier ADJUNCT PROFESSOR OF ENGLISH Unavailable LOLA Herr Primary Unavailable Results GRAM STAIN* - Collect Date/T vito: 11/15/2023 11:15 [facility] ID: [id number] [address] [place] [address], [id number] LOINC: 664-3 Test Value Unit Reference Range Code Code System Flag SOURCE- Other WBC s few [employer] Gram pos cocci NOVA GLUCOSE FINGER HEEL CAP ILLARY - Collect Date/Time: 11/15/2023 08:56 [facility] ID: [id number] [address] [place] [address], [id number] LOINC: 37742-9 Test Value Unit Reference Range Code Code System Flag GLUCOSE CAP 244 mg/dL L=70 H=116 77593-0 LOINC H NOVA GLUCOSE FINGER HEEL CAP ILLARY - Collect Date/Time: 11/15/2023 07:31 [facility] ID: [id number] [address] [place] [address], [id number] LOINC: 30032-6 Test Value Unit Reference Range Code Code System Flag GLUCOSE CAP 267 mg/dL L=70 H=116 70704-6 LOINC H Social History Type Status Start Date End Date Code Code Syst em Sex Male Vital Signs Vital Sign Value Unit [place] Value [place] Unit Date/Time Recent/Initial? Code Code System Body Mass Index 33.23 kg/m2 11/10/2023 12:45 Initial 44470 -5 LOINC Systolic Blood Pressure 176 mm[Hg] 11/15/2023 10:15 Most Recent 8480- 6 LOINC Diastolic Blood Pressure 87 mm[Hg] 11/15/2023 10:15 Most Recent 8462- 4 LOINC Systolic Blood Pressure 93 mm[Hg] 11/15/2023 09:01 Initial 8480- 6 LOINC Diastolic Blood Pressure 57 mm[Hg] 11/15/2023 09:01 Initial 8462- 4 [facility] Body Surface Area 2.23 m2 11/10/2023 12:45 Initial 3140- 1 [facility] Height 175.260 0 cm 69.00 in 11/10/2023 12:45 Initial 8302- 2 INC O2 Saturation 95 % 2023 10:15 Most Recent 32833 -5 [facility] O2 Saturation 100 % 2023 09:01 Initial 02435 -5 INC Pulse 64.0 /min 11/15/2023 10:15 Most Recent 8867- 4 [facility] Pulse 65.0 /min 11/15/2023 09:01 Initial 8867- 4 INC Respiration 12 /min 11/15/19 24 10:15 Most Recent 9279- 1 LOINC Respiration 11 /min 11/15/19 24 09:01 Initial 9279- 1 INC Temperature 36.5 Destiny 97.7 F 11/15/19 24 09:01 Initial 8310- 5 INC Weight 102.06 kg 225.00 lbs 11/10/2023 12:45 Initial 95425 -7 [facility] Hospital Discharge Instructions Should you have any questions prior to discharge, please contact a member of your healthcare team. If you have left the hospital and have any questions, please contact your primary care physician. Reason For Referral No Data Found Procedures Procedure Name Date Status Code Code Syste m Amputation, Toe; Interphalangeal Joint 11/15/2023 complete d 85898 CPT Anesthesia, Nerves/Muscles/T endons & Fascia, Lower Leg/Ankle/Foot; NOS 11/15/2023 completed 30434 CPT Allergies and Adverse Reactions Allergy Substance Reaction Severity Start Date Concern Status Co de Code System LISINOPRIL Active 14297 RxNorm Plan of Treatment MRI LOWER EXT W/O CONTRAST 08/06/2023 Encounters Encounter Diagnosis Start Date Code Code Sys tem Other chronic osteomyelitis, left ankle and foot 11/15 SNOMED-CT Personal Care Team Section Performer Name Performer Role Active Date Inactive Da te
--- OUTSIDE RECORDS SUMMARY | 2024-08-20 14:29 | XMS_ITS | Encounter Summary ---
Author Organization [facility] [place] [address] Care Team Providers Care Liquid Natural Gas Plant Operator Name Role Phone Mariella Ramon MD Primary Care Provider [phone] Encounter Details Date Type Department Care Team (Late st Contact Info) Description 02/10/2022 1:40 PM EDT Ancillary Procedure Radiology Library at [facility] [place] [phone] Mariella Ramon MD [address] [place], [place] [phone] Social History Tobacco Use Types Packs/Day Years Used Date Smoking Tobacco: Never Assessed Sex and Gender Information Value Date Recorded Sex Assigned at Male 02/26/2022 5:17 PM EDT Gender Identity Not on file Sexual Orientation Not on file documented as of this encounter Plan of Treatment Not on file documented as of this encounter Procedures Procedure Name Priority Date/Time Associated Diagnosis Comments FILM LIBRARY STORAGE ONLY ULTRASOUND STUDY Routine 02/10/2022 1:39 PM EDT documented in this encounter Results * Film Library- Storage Only Ultrasound Study (02/10/2022 1:39 PM EDT) Narrative PING - 02/10/2022 1:39 PM EDT This exam is auto-finalizing. It's purpose is for storage only. Mariella Ramon MD G FILM LIBRARY ORD ERABLES [place], [place] documented in this encounter Visit Diagnoses Not on filedocumented in this encounter Care Teams Liquid Natural Gas Plant Operator Relationship Specialty Start Date End Date Mariella Ramon MD [address] [place] [address] PCP - General Family Medicine 06/01/19 documented as of this encounter
--- OUTSIDE RECORDS SUMMARY | 2024-08-20 14:29 | XMS_ITS | Encounter Summary ---
Author Organization [facility] [place] [address] Care Team Providers Care Licensed Aircraft Maintenance Engineer Name Role Phone Mariella Ramon MD Primary Care Provider [phone] Encounter Details Date Type Department Care Team (Late st Contact Info) Description 02/07/2022 Ancillary Procedure Radiology Library at [facility] [place] [phone] Mariella Ramon MD [address] [place], [place] [phone] Social History Tobacco Use Types Packs/Day Years [...] Associated Diagnosis Comments FILM LIBRARY STORAGE ONLY CT LOWER EXTREMITY Routine 02/07/2022 12:00 AM EDT documented in this encounter Results * Film Library- Storage Only CT Lower Extremity (02/07/2022 12:00 AM EDT) Narrative [facility] - 02/16/2022 6:07 PM EDT This exam is auto-finalizing. It's purpose is for storage only. Mariella Ramon MD G FILM LIBRARY ORD ERABLES [facility] [place] documented in this encounter Visit Diagnoses Not on filedocumented in this encounter Care Teams Licensed Aircraft Maintenance Engineer Relationship Specialty Start Date End Date Mariella Ramon MD [address] [place] [address] PCP - General Family Medicine 06/01/19 documented as of this encounter
--- OUTSIDE RECORDS SUMMARY | 2024-08-20 14:29 | XMS_ITS | Encounter Summary ---
[place] [address] Care Team Providers Care Aquarium Tank Attendant Name Role Phone Mariella Ramon MD Primary Care Provider [phone] Encounter Details Date Type Department Care Team (Late st Contact Info) Description 02/26/2022 [place] [address] Davi Bower MD [facility] [address] Social History Tobacco Use Types Packs/Day Years Used Date Smoking Tobacco: Never Assessed Sex and Gender Information Value Date Recorded Sex Assigned at Male 02/26/2022 5:17 PM EDT Gender Identity Not on file Sexual Orientation Not on file documented as of this encounter H&P Notes * Davi Bower MD - 02/26/2022 1:27 PM EDT Images from the original note were not included. INTERVENTIONAL RADIOLOGY FOCUSED H&P and PRE-PROCEDURE NOTE: PCP: Mariella Ramon MD Referring Provider: No ref. provider found Planned Procedure: Procedure Indication: Recurrent thigh soft tissue abscesses Interventional Radiology Service contacted by Jerry Sams MD at [facility] Infectious Disease clinic regarding the procedure request below. There are no answered order specific questions. Presenting Diagnosis/ Complaint: Lino Ruiz is a 51 y.o. male with past medical history of type2 diabetes, sleep apnea, recent admission to [facility] with MSSA bacteremia and UTI. MRI 02/09 showed bilateral thigh collections. Ultrasound 02/10 showed the right collection to be drainable but not the left. IR placed right-sided thigh drain on 02/12/2022. Patient is was readmitted at [facility] with increased pain, erythema, and tenderness of the left thigh. IR was contacted by about aspirating/draining the left thigh, on 02/[address] showed the collection was too small to drain, which was communicated to [facility] team as documented in a consult note written by myself. On day of discharge (02/20/22) the collection had increased in size on ultrasound and we agreed to complete an outpatient drain placement once we received a fax with an order and recent H&P. This is documented in Paul Ennis's consult note dated 02/20/22. Interval history: The order from [facility] was received on 02/25/22. Today, 02/26 we received a call from Per Sams MD from [facility] Infectious Disease about mr Ruiz who is currently in clinic and presenting with increasing size of the left thigh collection. Per Dr. Sams his labs today show a normal WBC, and additionally he has had no fevers. He is continuing on antibiotic therapy with ID at [facility], and they are requesting drain placement. Past Medical/Surgical History: There is no problem list on file for this patient. No past medical history on file. Past Surgical History: Procedure Laterality Date ??? IR ALL DRAINAGE PROCEDURES 02/12/2022 IR All Drainage Procedures 02/12/2022 Wilfrido Rojo MD [facility] INTERVENTIONL RAD Medications: Current Outpatient Medications on File Prior to Visit Medication Sig Dispense Refill ??? CIS Free Text Med - Albuterol ??? hydrochlorothiazide (HYDRODIURIL) 25 mg tablet ??? metoprolol tartrate (LOPRESSOR) 50 mg tablet ??? sitaGLIPtin-metFORMIN (JANUMET) 50-1,000 mg per tablet 1 Tablet(s), PO, Twice daily No current facility-administered medications on file prior to visit. Allergies: Patient has no known allergies. Social History and Habits: Social History Socioeconomic History ??? Marital status: Single Spouse name: Not on file ??? Number of children: Not on file ??? Years of education: Not on file ??? Highest education level: Not on file Occupational History ??? Not on file Tobacco Use ??? Smoking status: Not on file ??? Smokeless tobacco: Not on file Substance and Sexual Activity ??? Alcohol use: Not on file ??? Drug use: Not on file ??? Sexual activity: Not on file Other Topics Concern ??? Not on file Social History Narrative ??? Not on file Social Determinants of Health Financial Resource Strain: Not on file Food Insecurity: Not on file Transportation Needs: Not on file Physical Activity: Not on file Housing Stability: Not on file Significant Family History: No family history on file. Pertinent ROS: as per HPI Labs: normal WBC at [facility] ID clinic per Dr. Sams Imaging: OSH Ultrasound dated 02/20/22 Physical Exam: Pending (to be performed in angio the day of procedure) ASA: Pending (to be assessed in angio the day of procedure) Mallampati Class: Pending (to be assessed in angio the day of procedure) Assessment: 51 y.o. male with bilateral thigh soft tissue collections presenting to [facility] for drain placement in the setting of increased collection size and ultra Plan: Planned procedure: Left thigh drain placement Labs to be performed day of procedure: No labs Sedation: Moderate (Conscious sedation) Prophylactic antibiotic : None Contrast: No contrast Additional medications for procedure: Lidocaine Planned access site: to be determined Position: Supine Consent: Pending Medications to discontinue (and days held): None Discussed with Dr. Baker 02/26/2022 documented in this encounter Plan of Treatment Not on file documented as of this encounter Visit Diagnoses Not on filedocumented in this encounter Care Teams Aquarium Tank Attendant Relationship Specialty Start Date End Date Mariella Ramon MD [address] [place] [address] PCP - General Family Medicine 06/01/19 documented as of this encounter
--- OUTSIDE RECORDS SUMMARY | 2024-08-20 14:29 | XMS_ITS | Encounter Summary ---
[place] [address] Care Team Providers Care Mess Attendant Crew Name Role Phone Mariella Ramon MD Primary Care Provider [phone] Reason for Referral * Consultation (Routine) - Authorized Specialty Diagnoses / Procedures Referred By Contac t Referred To Contact [facility] Diagnoses Low back pain, unspecified back pain laterality, unspecified chronicity, unspecified whether sciatica present low back pain/h/o diabetic foot issues/MRI 02/22/24 in e-DH/Tried PT Mariella Ramon MD [address] [place] [address] [facility] [place] [place] [address] Referral ID Status Reason Start Date Expiration Date Visits Requested Visits Authorized [id number] Authorized Consult, Test & Treat PCP Updated and/or Approved 02/14/2024 02/13/2025 1 1 Encounter Details Date Type Department Care Team (Latest Contact Info) Description 02/22/2024 Transcribe Orders eDH Incoming Referrals [phone] Mariella Ramon MD [address] [place] [address] Low back pain, unspecified back pain laterality, unspecified chronicity, unspecified whether sciatica present Social History Tobacco Use Types Packs/Day Years Used Date Smoking Tobacco: Never Smokeless Tobacco: Never Alcohol Use Standard Drinks/Week Comments Not Currently 0 (1 standard drink = 0.6 oz pur e alcohol) Sex and Gender Information Value Date Recorded Sex Assigned at Male 02/26/2022 5:17 PM EDT Gender Identity Not on file Sexual Orientation Not on file documented as of this encounter Plan of Treatment Scheduled Referrals Name Type Priority Associated Diagnoses Orde r Schedule Referral to Spine Center Outpatient Referral Routine Low back pain, unspecified back pain laterality, unspecified chronicity, unspecified whether sciatica present Ordered: 02/22/2024 documented as of this encounter Visit Diagnoses Diagnosis Low back pain, unspecified back pain laterality, unspecified chronicity, unspecified whether sciatica present documented in this encounter Care Teams Mess Attendant Crew Relationship Specialty Start Date End Date Mariella Ramon MD [address] [place] [id number] PCP - General Family Medicine 06/01/19 documented as of this encounter
--- OUTSIDE RECORDS SUMMARY | 2024-08-20 14:29 | XMS_ITS | Encounter Summary ---
Author Organization [facility] Address [address] [place] [address] Care Team Providers Care Physician/Internist Name Role Phone Mariella Ramon MD Primary Care Provider [phone] Encounter Details Date Type Department Care Team (Late st Contact Info) Description 08/12/2023 Lab Requisition [facility] Pathology & Laboratory Medicine - [address] [id number] Outr Resulting Lab, Provider Social History Tobacco [...] REFERENCE (08/12/2023 8:46 EDT) Organism ID Few [email or web address] [id number]([email or web address]) 08/18/2023 13:55 EDT [facility] Tissue TOE STRUCTURE / Unknown 08/12/2023 8:46 EDT 08/12/2023 22:48 EDT Provider Outr Resulting Lab MICROBIOLOGY - GENERAL ORDERABLES [facility] [address] [place] [address] documented in this encounter Visit Diagnoses Not on filedocumented in this encounter Care Teams Physician/Internist Relationship Specialty Start Date End Date Mariella Ramon MD [address] [place] [id number] PCP - General Family Medicine - Primary Care 02/23/22 documented as of this encounter
--- OUTSIDE RECORDS SUMMARY | 2024-08-20 14:29 | XMS_ITS | Encounter Summary ---
Author Organization [facility] [place] [address] Care Team Providers Care Inserter Operator Name Role Phone Mariella Ramon MD Primary Care Provider [phone] Encounter Details Date Type Department Care Team (Late st Contact Info) Description 02/09/2022 12:05 AM EDT Ancillary Procedure Radiology Library at [facility] [place] [id number] Mariella Ramon MD [address] [place], [place] [id number] Social History Tobacco Use Types Packs/Day Years [...] FILM LIBRARY STORAGE ONLY ULTRASOUND STUDY Routine 02/09/2022 12:05 AM EDT documented in this encounter Results * Film Library- Storage Only Ultrasound Study (02/09/2022 12:05 AM EDT) Narrative PING - 02/17/2022 11:55 AM EDT This exam is auto-finalizing. It's purpose is for storage only. Mariella Ramon MD G FILM LIBRARY ORD ERABLES [place] [place] documented in this encounter Visit Diagnoses Not on filedocumented in this encounter Care Teams Inserter Operator Relationship Specialty Start Date End Date Mariella Ramon MD [address] [place] [address] PCP - General Family Medicine 06/01/19 documented as of this encounter
--- OUTSIDE RECORDS SUMMARY | 2024-08-20 14:29 | XMS_ITS | Encounter Summary ---
[place] [address] Care Team Providers Care Hat Sizer Name Role Phone Mariella Ramon MD Primary Care Provider [phone] Reason for Referral * Diagnostic Test (Routine) - Closed Specialty Diagnoses / Procedures Referred By Contac t Referred To Contact Radiology Diagnoses MSSA bacteremia Urinary tract infection without hematuria, site unspecified Abscess of thigh Pain of thigh, unspecified laterality Procedures IR All Drainage Procedures Navneet Murillo MD [address] [place] [id number] [place] [address] Referral ID Status Reason Start Date Expiration Date V isits Requested Visits Authorized [id number] Closed Specialty Service Requested 02/12/2022 10/31/2022 1 1 Reason for Visit * Diagnostic Test (Routine) - Closed Specialty Diagnoses / Procedures Referred By Contac t Referred To Contact Radiology Diagnoses MSSA bacteremia Urinary tract infection without hematuria, site unspecified Abscess of thigh Pain of thigh, unspecified laterality Procedures IR All Drainage Procedures Navneet Murillo MD [address] [place] [address] [place] [address] Referral ID Status Reason Start Date Expiration Date V isits Requested Visits Authorized [id number] Closed Specialty Service Requested 02/12/2022 10/31/2022 1 1 Encounter Details Date Type Department Care Team (Latest Contact Info) Description 02/12/2022 9:23 AM EDT - 02/12/2022 11:59 PM EDT Hospital [place] [address] Navneet Murillo MD [address] [place] [id number] MSSA bacteremia; Urinary tract infection without hematuria, site unspecified; Abscess of thigh; Pain of thigh, unspecified laterality Discharge Disposition: Home Social History Tobacco Use Types Packs/Day Years Used Date Smoking Tobacco: Never Assessed Sex and Gender Information Value Date Recorded Sex Assigned at Male 02/26/2022 5:17 PM EDT Gender Identity Not on file Sexual Orientation Not on file documented as of this encounter Last Filed Vital Signs Vital Sign Reading Time Taken Comments Blood Pressure 20272 02/12/2022 11:45 AM EDT Pulse 64 02/12/2022 10:00 AM EDT Temperature 36.6 ??C (97.9 ??F) 02/12/2022 10:00 AM E DT Respiratory Rate 16 02/12/2022 11:45 AM EDT Oxygen Saturation 96% 02/12/2022 11:50 AM EDT Inhaled Oxygen Concentration - - Weight - - Height - - Body Mass Index - - documented in this encounter Discharge Instructions * Discharge Instructions* Julianne Hobbs RN - 02/12/2022 11:52 AM EDT Images from the original note were not included. INTERVENTIONAL RADIOLOGY DRAIN CARE INSTRUCTIONS Drains help to keep fluid from collecting by removing the extra blood and fluid from under the skinor from an abscess within the body. A drain is temporary. It stays in place until the drainage has slowed down or stopped. Your Provider will decide when each drain should be removed. This is usuallyafter each drain has 30cc or less in 24 hours for 2-3 days in a row. You will then be scheduled for what is called a Sinogram to check and see if the fluid collection has gotten smaller. How do I care for the drains at home? Pin your drain/s to your clothing by using a safety pin through the plastic loop on the top of the bulb. If the drain is not attached to your clothing, it may pull out from under your skin. Also, a drain usually feels more comfortable when it???s attached. To care for the drain at home, you will have to empty the drain, ???strip?? the drain tubing, and change the dressing if applicable. * See the following information on instructions on how to do this. You will go home with a dressing over the insertion site. Usually, Visiting Nurses are set up to show you how to change the dressing and care for the drain. They may teach a family member if they arewilling. The dressing needs to only be change once a week provided there is no leakage around the tube. What problems may I have with my drain? The bulb is not compressed- The bulb may not be squeezed tightly enough, the plug may not be closedsecurely, or the tube has slipped out a bit and is leaking. Follow the instructions on how to emptythe drain. If the bulb remains expanded, then notify your doctor or nurse during business hours. No drainage or sudden decrease in amount of drainage- This may be due to a plug in the drain. Please notify your doctor or nurse during business hours. The tube accidentally falls out- If this happens, place a dry gauze dressing over the drain site and notify your doctor or nurse during business hours. Increased redness, swelling, or heat around the tube insertion site- This may be a sign of infection. Take your temperature: if it is higher than 101F or 38.8C, call your doctor or nurse immediately.Otherwise, notify your doctor or nurse during business hours and keep the dressing clean and dry. How to Empty Your Drain and flush drain Note: Wash your hands thoroughly before emptying your drain(s). Unpin the drain from your clothing. 1. Turn the white stopcock so it is not parallel (in line) with the tubing. 2. Unscrew the tubing with the bulb attached from stopcock. Make sure you keep everything clean. 3. Attach the syringe with sterile saline to the stopcock. 4. Inject saline per MD order, 3-5 cc's once per day. Forward flush only, do not aspirate back. 5. Re-attach the tubing with the bulb to the stopcock. 6. Invert the bulb and pull open the plug. 7. Have the plastic measuring cup from the hospital ready to collect and measure the drainage. Please measure the output at the same time every 24 hours and record the amount. 8. Turn the drain upside down and squeeze the contents of the bulb into the measuring cup. Be sure to empty the bulb as completely as possible. Flush the contents in the toilet. 9. Use the drain output log chart to record the amount of drainage twice a day or any time the bulbis full. Record the total for 24 hours for each drain you have. 10. If you have more than one drain, remember to record the drainage from each drain separately. 11. To prevent infection, do not let the stopper or top of the bottle touch the measuring cup or any other surface. Use one hand to squeeze all of the air from the drain. With the drain still squeezed, use your other hand to replace the top. This creates the suction necessary to remove the fluids from your body. Pin the drain back on your clothing to avoid pulling it out accidently. Wash your hands again. Remember to wash your hands before and after the procedure to reduce the risk of infection. Flushing the Drain: Your doctor may want the drain to be flushed once or twice daily to keep the fluid from plugging the drain. Flush the drain with 3-5 cc daily with the syringes supplied to you. FORWARD FLUSH ONLY, DO NOT ASPIRATE BACK. When to call the Interventional Radiology Department: Please call with any questions or concerns. If it is during regular office hours, please call [phone]. If it is after regular office hours, or on weekends or holidays, please call [phone] and ask to speak to the Gasoline [employer] electronics utility worker for Interventional Radiology. XX You have received medication during your procedure to help lessen anxiety and keep you comfortable. These medications affect judgement and reaction time. We recommend that you do not drive, operate equipment, sign any important documents, or smoke unattended for 24 hours following your procedure. Because of the sedation, be careful on stairs, as you may be unsteady on your feet. You may resume your regular diet as tolerated. IV site -- slight redness, or tenderness is normal, you can use a warm compress. If tenderness and redness increases or foul drainage occurs, please contact your M. D. Revised 08/17/19 Drainage Record NAME: Date of Surgery: Date: Time: If more than one drain, which one: Drainage Amount (per drain) Total Amount (per drain; in 24 hours) documented in this encounter Medications at Time of Discharge Medication Sig Dispensed Refills Start Date End Date CIS Free Text Med - Albuterol 12/14/2008 hydrochlorothiazide (HYDRODIURIL) 25 mg tablet 12/14/2008 metoprolol tartrate (LOPRESSOR) 50 mg tablet 12/14/2008 sitaGLIPtin-metFORMIN (JANUMET) 50-1,000 mg per tablet 1 Tablet(s), PO, Twice daily 12/14/2008 documented as of this encounter Progress Notes * Davi Bower MD - 02/12/2022 11:59 PM EDT Images from the original note were not included. Results: Abscess/Wound Aspirate Culture Abscess; Leg, Right Abnormal Status: Final result (Collected: 02/12/2022 11:42) Result Information Date and Time: Resulted: 02/16/2022 08:21 Status: Final result ??-- Abnormal??Abnormal?? Component Results Specimen Information: Leg, Right; Abscess ?? Component Value Abscess/Wound Aspirate Culture ??Abnormal?? Rare Staphylococcus aureus Gram Stain ??Abnormal?? Many Neutrophils seen Rare Gram Positive Cocci seen ??Contains abnormal data??Abscess/Wound Aspirate Culture Abscess; Leg, Right Order: [id number] Status: Final result ?? Visible to patient: No (not released) ?? Next appt: None ?? Specimen Information: Leg, Right; Abscess ?? 0 Result Notes Component 5 d ago Abscess/Wound Aspirate Culture Rare Staphylococcus aureus??Abnormal?? Gram Stain ??Abnormal?? Many Neutrophils seen Rare Gram Positive Cocci seen Organism Staphylococcus aureus??Abnormal?? Organism Gram Positive Cocci??Abnormal?? Resulting Agency [facility] Lab Susceptibility Staphylococcus aureus VITEK 2 METHOD Clindamycin Sensitive Erythromycin Sensitive Gentamicin Sensitive 1 Oxacillin Sensitive 2 Tetracycline Sensitive Trimethoprim/Sulfa Sensitive Vancomycin Sensitive ?? 1 Gentamicin is not appropriate for Lee-therapy. 2 Oxacillin (methicillin) susceptibility is a surrogate for the oral and parenteral cephalosporins, beta-lactam combination agents (amoxicillin-clavulanate, ampicillin-sulbactam and piperacillin-tazobactam) and carbapenem agents. ??It is NOT a surrogate for penicillin, ampicillin or piperacillin susceptibility. Resulting Agency's Comment Spec In Lab Specimen Collected: 02/12/22 11:42 Last Resulted: 02/16/22 08:21 ??Lab Flowsheet ?? Order Details ?? View Encounter ?? Lab and Collection Details ?? Routing ?? Result History ?? Result Care Coordination Patient Communication Not Released Not seen Back to Top Other Results from 02/12/2022 POCT Glucose Order: [id number] Status: Final result ?? Visible to patient: No (not released) ?? Next appt: None ?? 0 Result Notes Component Ref Range & Units 5 d ago POC Glucose 65 - 199 mg/dL 142 Comment: Supplemental ranges: <140 mg/dL before meals <180 mg/dL all other times of the day Resulting Agency [facility] Lab Specimen Collected: 02/12/22 10:16 Last Resulted: 02/12/22 10:16 ??Lab Flowsheet ?? Order Details ?? View Encounter ?? Lab and Collection Details ?? Routing ?? Result History ?? Result Care Coordination Patient Communication Not Released Not seen Back to Top Susceptibility Staphylococcus aureus VITEK 2 METHOD Clindamycin Sensitive Erythromycin Sensitive Gentamicin Sensitive 1 Oxacillin Sensitive 2 Tetracycline Sensitive Trimethoprim/Sulfa Sensitive Vancomycin Sensitive ?? 1 Gentamicin is not appropriate for Lee-therapy. 2 Oxacillin (methicillin) susceptibility is a surrogate for the oral and parenteral cephalosporins, beta-lactam combination agents (amoxicillin-clavulanate, ampicillin-sulbactam and piperacillin-tazobactam) and carbapenem agents. ??It is NOT a surrogate for penicillin, ampicillin or piperacillin susceptibility. Linear View Reference Links Lab Handbook ?? Lab Information Lab unless otherwise noted: [facility] [place], [place] [address] Heating Equipment Repairer: Sierra Brandt M.D., M.Sc., F.R.C.Path ? Results Routing Details Abscess/Wound Aspirate Culture Abscess; Leg, Right (Order #[id number]) on 02/12/22 Base Name & eD-H Order Name Info Abscess/Wound Aspirate Culture Abscess; Leg, Right (Order #[id number]) on 02/12/22 Printer Friendly Result Report Printable Result Report * Julianne Hobbs RN - 02/12/2022 11:02 AM EDT [facility]IO NURSING DATABASE Name: LINO RUIZ Date of : 1970 AGE: 51 y.o. Address: [address] [place] [address] (home) [phone] (work) Mobile: Telephone Information: Referring Provider: Navneet Murillo REASON FOR VISIT: U/S Guided Thigh Drain Placement Order Questions Answers Where will study be performed? [facility] Radiology [120] Is the patient on anticoagulant / antiplatelet therapy? No Reason for exam and clinical history: Thigh muscle abscess. ,Please culture abscess fluid. Plan: Planned procedure: US guided drain placement Labs to be performed day of procedure: No labs Sedation: Moderate sedation Prophylactic antibiotic: None Contrast: No contrast Additional medications for procedure: Lidocaine Position: Supine Consent: Pending Medications to discontinue (and days held): None Cytopathology presence needed: No Case Urgency: G-Other (non E or F elective cases) ?? Case discussed with Dr. Carvajal, IR attending ?? Ozzy Bazan MD, JAMILA Resident, Interventional Radiology, PGY-3 No Known Allergies Pertinent PMH: There is no problem list on file for this patient. Pertinent PSH: No past surgical history on file. Date/Procedure Meds Given/Comments 02/12/22 US guided R thigh drain placement Fentanyl 100 mcg IV. Tolerated procedure well. 1112 to procedure room 1 via stretcher. Onto stretcher supine. All monitors, O2, safety strap in place. Meds per protocol. Laboratory Results: Medications: Prior to Admission medications Medication Sig Start Date End Date Taking? Authorizing Provider CIS Free Text Med - Albuterol 12/14/08 hydrochlorothiazide (HYDRODIURIL) 25 mg tablet 2/13/09 metoprolol tartrate (LOPRESSOR) 50 mg tablet 12/14/08 sitaGLIPtin-metFORMIN (JANUMET) 50-1,000 mg per tablet 1 Tablet(s), PO, Twice daily 12/14/08 documented in this encounter H&P Notes * Kalpana Wilkerson PA - 02/12/2022 10:09 AM EDT INTERVENTIONAL RADIOLOGY FOCUSED H&P: Procedure: Right lower extremity drainage catheter placement The patient's history and physical exam have been reviewed and completed. There has been no interval change from that of the pre-operative history and physical exam done within the last 30 days. Physical Exam: Cardiovascular: Regular, Normal Pulmonary: Breath sounds clear to auscultation The planned procedure (and sedation plan if appropriate) , its benefits and risks, and alternativeswere discussed with the patient. The patient consented to the procedure. PRE-SEDATION ASSESSMENT: Sedation Plan: moderate (conscious sedation) ASA: 2: Patient with mild systemic disease Mallampati: I: soft palate, fauces, tonsillar pillars and uvula can be seen Confirm NPO status: Yes History of anesthetic complications: No Current medications reviewed: Yes Allergies reviewed: Yes Source Note - Ozzy Bazan MD - 02/11/2022 11:50 AM EDT Images from the original note were not included. INTERVENTIONAL RADIOLOGY FOCUSED H&P and PRE-PROCEDURE NOTE: PCP: Mariella Ramon MD Referring Provider: Navneet Murillo MD Planned Procedure: IR Drainage Procedure Procedure Indication: Right lower extremity collection Interventional Radiology Service contacted by the transfer center 02/10/2022 at approximately 0938 regarding the procedure request below. Presenting Diagnosis/ Complaint: Lino Ruiz is a 51 y.o. male with history of type 2 DM and sleep apnea, currently admitted to [facility] with MSSA bacteremia and UTI.He has tenderness to palpation in his right proximal lateral thigh and his left distal lateral thigh. MRI concerning for a 5.7 cm abscess in the proximal right vastus lateralis muscle and a 4.2 cm abscess in the distal left vastus lateralis muscle. IR was contacted by Dr. Murillo through the transfer center regarding aspirating fluid for culture and placing a drain in the collections. Due to the sensitivity of MRI for edema, IR requested an US be obtained of the collections to verify there was adrainable collection. US was obtained revealing a right lateral thigh 5.0 cm fluid collection that appears amenable to drainage. The left thigh fluid collection does not appear amendable to drainage. Past Medical/Surgical History: Type 2 DM Sleep apnea Medications: Please see scanned docs for current medications at [facility] Current Outpatient Medications on File Prior to [...] file. Pertinent ROS: as per HPI Labs: Platelet Count 259 02/11/22. See scan docs for complete labs. Imaging: MRI 02/09/22 US 02/10/22 Physical Exam: Pending (to be performed in angio the day of procedure) ASA: Pending (to be assessed in angio the day of procedure) Mallampati Class: Pending (to be assessed in angio the day of procedure) Assessment: 51 y.o. male with history of type 2 DM and sleep apnea, currently admitted to [facility] with MSSA bacteremia and UTI. He appears to have a right lateral thigh5.0 cm fluid collection that appears amenable to drainage. The left thigh fluid collection does notappear amendable to drainage. Plan: Planned procedure: US guided drain placement Labs to be performed day of procedure: No labs Sedation: Moderate sedation Prophylactic antibiotic: None Contrast: No contrast Additional medications for procedure: Lidocaine Position: Supine Consent: Pending Medications to discontinue (and days held): None Cytopathology presence needed: No Case Urgency: G-Other (non E or F elective cases) Case discussed with Dr. Carvajal, IR attending Ozzy Bazan MD, JAMILA Resident, Interventional Radiology, PGY-3 02/11/2022 documented in this encounter Plan of Treatment Not on file documented as of this encounter Procedures Procedure Name Priority Date/Time Associated Diagnosis Comments IR ALL DRAINAGE PROCEDURES Routine 02/12/2022 12:01 PM EDT MSSA bacteremia Urinary tract infection without hematuria, site unspecified Abscess of thigh Pain of thigh, unspecified laterality HC WOUND/ABSCESS CX Routine 02/12/2022 1 1:42 AM EDT POCT GLUCOSE Routine 02/12/2022 10:16 AM EDT documented in this encounter Results * IR All Drainage Procedures (02/12/2022 12:01 PM EDT) Anatomical Region Laterality Modality X-Ray Angiograph y Narrative 02/12/2022 12:04 PM EDT IR Procedure Note Procedure: ?? US guided right lateral thigh drain placement History/indication: ?? 51 yr old m patient- PMHx ??of type 2 DM and sleep apnea. Currently admitted to [facility] with MSSA bacteremia and UTI. MRI concerning for a 5.7 cm abscess in the proximal right vastus lateralis muscle; due to the sensitivity of MRI for edema, IR requested an US be obtained of the collections to verify there was a drainable collection. US was obtained revealing a right lateral thigh 5.0 cm fluid collection that appears amenable to drainage. Technique: ?? After discussing risks (including infection and hemorrhage), and benefits, patient consented to the procedure. The patient received split doses of intravenous fentanyl from the IR nurse while pulse, pressure, end tidal CO2 and oxygen saturation were continuously monitored. Fluid was identified in the proximal/lateral aspect of the right thigh, approximately 5 cm deep, superficial to the femur. After sterile preparation of the overlying skin, 1% lidocaine SQ was administered for anesthesia, and an 18 ga Smiley needle was advanced under US guidance into the collection. ??There was spontaneous return of marco, purulent appearing fluid. A specimen was sent for Gram stain and culture. Over an .035 Sauceda guidewire, tract was dilated to 7 Fr, and an 8.5 Fr locking pigtail drain ([place]) was placed. ??The catheter was secured to the skin with 2-0 nylon suture and connected to suction bulb drainage. ?? The patient tolerated the procedure well. Complications: ?None immediate; ??EBL=0 Medications: ??1% lidocaine (<10 cc); fentanyl 100 mcg Findings: 1. US evaluation identified the fluid collection in the proximal/lateral aspect of the right thigh. 2. ??Spontaneous return of marco, purulent appearing fluid; specimen was sent for microbiology. 3. Placement of an 8.5 Fr locking loop drain as detailed above. Recommendation: ??Fluoroscopic drain injection in 7-14 days. Attending: ?Birgit Rojo MD ? I was present during the intraservice time as documented by the IR Nurse. Navneet Murillo MD IM IR ORDERABLES * (ABNORMAL) Abscess/Wound Aspirate Culture Abscess; Leg, Right (02/12/2022 11:42 AM EDT) Abscess/Wound Aspirate Culture Rare Staphylococcus aureus(A) [facility] Gram Stain Many Neutrophils seen Rare Gram Positive Cocci seen (A) [facility] Organism Staphylococcus aureus(A) [facility] Organism Gram Positive Cocci(A) [facility] Abscess STRUCTURE OF RIGHT LOWER LIMB / Unknown 02/12/2022 11:42 AM EDT 02/12/2022 12:23 PM EDT Narrative Resulting Agency Comment Spec In Lab Organism Antibiotic Method Susceptibility Staphylococcus aureus Clindamycin VITEK 2 METHOD Sensitive Staphylococcus aureus Erythromycin VITEK 2 METHOD Sensitive Staphylococcus aureus Gentamicin VITEK 2 METHOD Sensitive Comment:Gentamicin i s not appropriate for Lee-therapy. Staphylococcus aureus Oxacillin VITEK 2 METHOD Sensitive Comment: Oxacillin (methicillin) susceptibility is a surrogate for the oral and parenteral cephalosporins, beta-lactam combination agents (amoxicillin-clavulanate, ampicillin-sulbactam and piperacillin-tazobactam) and carbapenem agents. ??It is NOT a surrogate for penicillin, ampicillin or piperacillin susceptibility. Staphylococcus aureus Trimethoprim/Sulfa VITEK 2 METHO D Sensitive Staphylococcus aureus Tetracycline VITEK 2 METHOD Sensitive Staphylococcus aureus Vancomycin VITEK 2 METHOD Sensitive Navneet Murillo MD MICROBIOLOGY - GENER AL ORDERABLES Performing Organization Address City/[facility]/ZIP Co de Phone Number [facility] [place] [address] * POCT Glucose (02/12/2022 10:16 AM EDT) Glucose, POC 142 65 - 199 mg/dL [facility] Comment: Supplemental ranges: <140 mg/dL before meals <180 mg/dL all other times of the day Blood 02/12/2022 10:1 6 AM EDT 02/12/2022 10:16 AM EDT Navneet Murillo MD POINT OF CARE TEST O RDERABLES Performing Organization Address [facility]/ZIP Co de Phone Number [facility] [place] [address] documented in this encounter Visit Diagnoses Diagnosis MSSA bacteremia Urinary tract infection without hematuria, site unspecified Abscess of thigh Cellulitis and abscess of leg, except foot Pain of thigh, unspecified laterality documented in this encounter Administered Medications Inactive Administered Medications - up to 3 most recent administrations Medication Order MAR Action Action Date Dose Rate Site fentaNYL (pf) (50 mcg/mL) multi-dose injection 25-50 mcg 25-50 mcg, Intravenous, EVERY 3 MIN PRN, Starting on Amy 02/12/22 at 1013, Until Wed02/13/22 at 0439, Pain, per unit protocol, - Start dose 50 mcg (reduce dose to 25 mcg if history of sedation sensitivity). - Titration dose 25-50 mcg IV, (based on patient response) every 3 minutes PRN, to maintain procedural pain less than 2 per pain Scale. Maximum dose: 50 mcg/dose, 250 mcg/hour For use in Interventional Radiology (IR) only for procedural sedation with direct provider supervision and verbal order., Angio/IR (Day of Procedure), Routine Given 02/12/2022 11:34 AM EDT 25 mcg Given 02/12/2022 11:29 AM EDT 25 mcg Given 02/12/2022 11:25 AM EDT 25 mcg lidocaine (Xylocaine) 1% (10 mg/mL) injection 10 mg 10 mg, Subcutaneous, ONCE, 1 dose, On Amy 02/12/22 at 1030, For use in Interventional Radiology (IR) only for procedure with direct provider supervision and verbal order., Angio/IR (Day of Procedure), Routine Given 02/12/2022 11:34 AM EDT 10 mg sodium chloride 0.9 % (flush) (BD PosiFlush Normal Saline 0.9) flush 5 mL 5 mL, Intravenous, 2 TIMES DAILY, First dose on Amy 02/12/22 at 1030, Until Discontinued, Angio/IR (Day of Procedure), Routine Given 02/12/2022 11:25 AM EDT 5 mLs documented in this encounter Care Teams Hat Sizer Relationship Specialty Start Date End Date Mariella Ramon MD PO [address] [place] [address] PCP - General Family Medicine 06/01/19 documented as of this encounter
--- OUTSIDE RECORDS SUMMARY | 2024-08-20 14:29 | XMS_ITS | Encounter Summary ---
Author Organization [facility] Address [address] [place] [address] Care Team Providers Care Rn Cvor Name Role Phone Mariella Ramon MD Primary Care Provider Reason for Visit * Reason Comments Acute Illness * Consult (Routine) - Receiving Office to Obtain Authorization Specialty Diagnoses / Procedures Referred By Contac t Referred To Contact Infectious Disease Diagnoses MSSA bacteremia Thigh abscess Lizett Marmolejo MD [address] [place] [phone] [facility] Ep5 Infectious Disease [address] [place] [address] Referral ID Status Reason Start Date Expiration Date Visits Requested Visits Authorized [id number] Receiving Office to Obtain Authorization 1 1 Encounter Details Date Type Department Care Team (Late st Contact Info) Description 02/26/2022 9:30 EDT Office Visit [facility] Infectious Disease - [facility] [address], [place] [id number] Jerry Sams DO [address] [facility], [facility] [address] [place] [address] Staph aureus infection (Primary Dx) Social History Tobacco Use Types Packs/Day Years [...] Reading Time Taken Comments Blood Pressure 169/92 02/26/2022901 EDT Pulse 77 02/26/2022901 EDT Temperature 36.2 ??C (97.1 ??F) 02/26/2022901 EDT Respiratory Rate - - Oxygen Saturation - - Inhaled Oxygen Concentration - - Weight 103.9 kg (229 lb) 02/26/2022901 EDT pt reported Height - - Body Mass Index - - documented in this encounter Progress Notes * Jerry Sams, DO - 02/26/2022929 EDT Images from the original note were not included. I spent a total of 120 minutes on the date of this encounter meeting with the patient and reviewingdocumentation/coordinating care as described in the above note. No procedures were performed at thetime of the visit. INFECTIOUS DISEASE CLINIC VISIT Patient name: Lino Ruiz Today's date: 02/25/2022 Chief Complaint: Hospital follow-up care, initial visit with [facility] ID HPI: Mr. Ruiz is a 51 y.o. male with a history of type 2 diabetes, HLD, status post left Achilles tendon repair, and sleep apnea was referred to [facility] infectious diseases clinic in follow-up of a prolonged admission earlier this month at [facility] for MSSA bacteremia and a bilateral thigh abscess. Records are limited but during his admission, ID at [facility] was consulted over the phone for antibiotic recommendations and patient transported briefly down to [facility] for IR guided right thigh drain placement and then returned to [facility] same day. [facility] was not able to provide TETO in setting of high-grade MSSA bacteremia. Patient was discharged home and referred to the [facility] system for ID follow-up and a TETO. Patient was in usual state of health when he presented to the ER 05 February with a chief complaint of4 days of nausea, vomiting, low-grade fevers, bilateral hip pain and bilateral thigh pain. Blood cultures and urine cultures were collected that day both of which grew MSSA. Imaging of his bilateral thighs showed a R>L bilateral thigh abscesses. Patient transported to [facility] briefly 14 [address] for IR guided drainage of the right abscess. The left abscess was deemed too small to require drainage. Patient had a surface echo that was unremarkable for endocarditis. His bacteremia cleared starting 08 February and after a brief course of ceftriaxone/vancomycin, then oxacillin, patient was transferred to [facility] with a plan for 4-6 weeks of IV antibiotics. Initially [facility] ID recommended TETO viaa phone consult but [facility] was unable to schedule patient for another month so upon discharge Apr, patient was scheduled to have follow-up with [facility] ID and then a TETO with [facility] cardiology. Currently, feels OK. No fevers, chills, night sweats. No nausea, vomiting or diarrhea. VNA visits weekly for dressing change on PICC. L thigh pain at site of known abcess is getting worse and making it difficult to walk. No other ortho or CLINICAL SPECIALIST complaints. Pt R thigh pain has improved. Review of Systems: 10-point review of systems is negative except as noted in the HPI. Current antibiotics [facility] 12 February-present Prior antibiotics Vancomycin/ceftriaxone 05 February-08 February Oxacillin 09 February-12 February Past Medical History: Type 2 diabetes Obstructive sleep apnea Hypertension Depression Past Surgical History: Arthroscopy knee Arthroscopy shoulder Elbow surgery for torn tendon No current outpatient medications on file. Not on File FB: R UE PICC Social History Tobacco:none Alcohol:rare Recreational drugs: None Professional drives fork lift Relationships / Living Situation: Lives in [place] [facility] [place] [facility] [place], with . No kids Travel:Born [facility], came to [place] age 7. No overseas. Never lived anywhere else. Animal exposure: Dogs/cats Food: no raw milk or meat. Other comments: No HCV or HIV testing his report. Meds: gabapentin Metformin Social History Socioeconomic History ??? Marital status: Spouse name: Not on file ??? Number of children: Not on file ??? Years of education: Not on file ??? Highest education level: Not on file Occupational History ??? Not on file Tobacco Use ??? Smoking status: Not on file Substance and Sexual Activity [...] on file Physical Activity: Not on file Stress: Not on file Social Connections: Not on file Family history: Pertinent for The Family History was reviewed and is non-contributory for a past history of infection or immunocompromised state. Physical Exam General: NAD HEENT and oral exam: AT/NC. EOMI. PERRL. Sclera anicteric. Oropharnyx w/o erythema or exudates. Dentures on top, fair dentition on bottom. CV: RRR, no MRG, S1 + S2 normal Pulm: CTAB, no wheezes, rales, or rhonchi Abd: BS+, soft, non-tender, non-distended, no hepatosplenomegaly Ext: Warm, well-perfused, no edema, 2+ pulses globally. See photo of R foot. No TTP. Suspect this was entry point for MSSA. Neuro: A+Ox3 Thigh: R thigh soft, minimal TTP, no erythema. L thigh soft, TTP on lateral aspect. No erythema or drainage. No warmth Skin: No concern for lesions of immunological or vascular phenomenon consistent with endocarditis. Laboratory: 05 February urine cultures MSSA 05 February blood cultures MSSA ([facility]) susceptible to Cipro, gentamicin, daptomycin, erythromycin, oxacillin, vancomycin 05 February blood cultures no growth 07 February blood cultures MSSA ( St ) 08 February blood cultures no growth 12 February right thigh abscess MSSA ([facility]) Radiology: 12 February ultrasound-guided right lateral thigh IR drain placement. Spontaneous return of ready, purulent appearing fluid. IR catheter removed 15 February. Pus grew MSSA Remainder of radiology results extracted from discharge summary written 19 February so exact dates areunclear during his 2-week admission: 1. MRI lumbar spine no concern for infection but DJD. 2. Bilateral hip x-rays unremarkable 3. MRI bilateral legs: Bilateral abscess involving the vastus lateralis muscle in both thighs. Right leg 7.7 cm diameter and left leg 4.2 cm diameter) 4. TTE, no concerns for vegetations 5. CTA of abdomen and pelvis showed no renal or bladder abnormalities 6. Renal and bladder ultrasound 7. Repeat CT left leg 16 February showed a decrease in the size of the abscess down to 3.4 cm diameter. IR at [facility] determined this abscess was too small to drain. 8. PICC line placed 18 February Assessment 1. MSSA bacteremia 05 February, 07 February. Blood cultures cleared on 08 February. Etiology of bacteremia unclear but suspect lesion on R foot (see photo) resulted in skin breakdown etc. Admitted at [facility] 05 February-19 February surface echo unremarkable, TETO pending at [facility] this week per report but pt waiting for insurance paper work. TETO recommended by [facility] ID via phone call based on records considering MSSA bacteremia. Lumbar spine without concern for osteomyelitis/discitis. Plan upon discharge was 6 weeks IV Ancef 2g IV q8, start day 08 February, 6-week stop day 22 March. ThePICC line was placed 18 February. 2. Left thigh abscess, too small to require drainage while in house, it was u/s at least twice but we dont have dates. I have left a message with hospitalists in [facility] and placed a page as well, awaiting their return call to clarify that the u/s done near d/c (20 February) did show the L thigh abscessas still not drainable as pt is concerned due to continued pain. Will ask our ID bowling or skating front desk clerk team totry to get this u/s result as well. 3. R thigh abscess, addressed with IR placed drain 12 February, removed 15 February. Pus grew MSSA. Getting PT at home, still having difficulty walking due to pain but better than two weeks ago so appears to be going in right direction. 4. Asymptomatic MSSA bacteriuria 05 February presumably due to bacteremia. Urology consulted while in house and recommended cystoscope if hematuria persisted as an outpatient. 5. DM2, A1C 8.4 regions Plan: 1. For now, stay the course with a 6-week planned course of antibiotics to end on 22 March 2. Weekly CBC, creatinine while on IV antibiotics, last blood draw 25 February, not sure where those results went. Will ask ID RN team to see if we can find them and take over his OPAT orders. 3. Repeat L/R thigh US around 5 week soto to measure progress ordered for [facility]. Suspect after IV finishes, if there is residual abscess present, pt will need course of keflex 500mg po QID and then repeat u/s again in about a month. 4. Pt with nl surface echo. No signs of sx of endocarditis on exam and ROS. Logistics of getting a TETO as outpt sound very challenging. I dont think it will telephone exchange operator with regards to length of therapy, we are going with 6 weeks anyway due to thigh abscess. For these reasons, I think we can hold off on the TETO. 5. Follow up with [facility] 10 March for OPAT safety review, then me 20 March to review u/s and make plans to convert to PO. 6. Letter given to today excusing her from work. 7. Optimize DM management per PCM It has been a pleasure seeing Mr. Ruiz in clinic today. Jerry Sams DO Pager [phone] Infectious Diseases documented in this encounter Plan of Treatment Not on file documented as of this encounter Visit Diagnoses Diagnosis Staph aureus infection- Primary Methicillin susceptible Staphylococcus aureus in conditions classified elsewhere and of unspecified site documented in this encounter Historical Medications * This list may reflect changes made after this encounter. Medication Sig Dispensed Refills Start Date End Date ondansetron (ZOFRAN) 4 mg tablet Take 8 mg by mouth every 8 hours as needed for Nausea. amLODIPine (NORVASC) 10 mg tablet Take 10 mg by mouth daily. LOSARTAN-HYDROCHLOROTHIAZ VICENTA ORAL Take by mouth daily. MAGNESIUM OXIDE ORAL Take 200 mg by mouth daily. insulin detemir U-100 (LEVEMIR) 100 unit/mL injection Inject into the skin at bedtime. ALBUTEROL SULFATE INHALATION Inhale as directed as needed. valACYclovir (VALTREX) 500 mg tablet Take 500 mg by mouth 2 times daily. sertraline (ZOLOFT) 50 mg tablet Take 50 mg by mouth daily. terazosin (HYTRIN) 5 mg capsule Take 5 mg by mouth at bedtime. traMADol (ULTRAM) 50 mg tablet Take 50 mg by mouth every 6 hours as needed for Pain. gabapentin (NEURONTIN) 600 mg tablet Take 600 mg by mouth 2 times daily. metFORMIN (GLUCOPHAGE) 1,000 mg tablet Take 1,000 mg by mouth 2 times daily. cefazolin sodium (CEFAZOLIN INTRAVENOUS) Inject into the vein daily. added in this encounter Care Teams Rn Cvor Relationship Specialty Start Date End Date Mariella Ramon MD [address] [place] [address] PCP - General Family Medicine - Primary Care 02/23/22 documented as of this encounter
--- OUTSIDE RECORDS SUMMARY | 2024-08-20 14:29 | XMS_ITS | Encounter Summary ---
Author Organization [facility] Address [address] [place] [address] Care Team Providers Care Stoker Erector And Servicer Name Role Phone Unknown, Provider Primary Care Provider Mariella Ramon MD Primary Care Provider [phone] Encounter Details Date Type Department Care Team (Late st Contact Info) Description 07/26/2021 Lab Requisition [facility] Pathology & Laboratory Medicine - [facility] [address] [place] [address] Dexter Breen, DPZana [address] [place] [phone] Plantar fascial fibromatosis; Achilles tendinitis, right leg; Strain of left Achilles tendon, initial encounter Social History Tobacco Use Types Packs/Day Years [...] Date/Time Associated Diagnosis Comments SURGICAL PATHOLOGY Today 07/25/2021 10 :48 EDT Plantar fascial fibromatosis Achilles tendinitis, right leg Strain of left Achilles tendon, initial encounter documented in this encounter Results * SURGICAL PATHOLOGY (07/25/2021 10:48 EDT) Note to Patient The following pathology results have been interpreted by your pathologist and may be available to you before your health provider has had the opportunity to review them. Please allow time for your provider to receive these results and explore management options, if applicable. 07/30/2021 17:24 [facility] Final Diagnosis A. SOFT TISSUE, LEFT PLANTAR, EXCISION: - Plantar fibromatosis. 07/30/2021 17:24 [facility] Attestation There was significant resident/fellow involvement in the diagnostic evaluation of this case. By the signature below, the attending physician certifies that they have personally conducted a gross and/or microscopic examination of the described specimens and rendered or confirmed the above diagnosis. 07/30/2021 17:24 [facility] at 1724 Clinical History Left plantar fibrosis; clinical diagnosis code: M72.2, M76.61, S86.012A 07/30/2021 17:24 [facility] Gross Description A. Received in formalin labelled with proper patient identification (initials L, L) and plantar L fibroma is a portion of white-castro fibroconnective tissue (2.4 x 1.9 x 0.7 cm). There is a white rubbery ill-defined area (1.7 x 1.0 x 0.6 cm), located at the center of the specimen. The outer surface is inked blue. The specimen is serially sectioned to reveal white cut surfaces. A mass is not grossly discernible. The specimen is entirely submitted in A1-A3. ERIC ABRAHAM(ASCP) 07/28/2021 8:43 07/30/2021 17:24 [facility] Resident/Danny w: Ben Zacarias DO 07/30/2021 17:24 [facility] Performing Lab [facility] 17:24 [facility] Scanned Images 07/30/2021 17:24 [facility] Tissue SOFT TISSUE / Unknown 07/25/2021 10:48 EDT 07/26/2021 10:52 EDT Dexter Breen DPM PATHOLOGY [facility] [address] [place] [address] documented in this encounter Visit Diagnoses Diagnosis Plantar fascial fibromatosis Achilles tendinitis, right leg Strain of left Achilles tendon, initial encounter documented in this encounter Care Teams Stoker Erector And Servicer Relationship Specialty Start Date End Date Unknown, Provider, PCP - General 02/20/22 02/22/22 Mariella Ramon MD [address] [place] [phone] PCP - General Family Medicine - Primary Care 02/23/22 documented as of this encounter
--- OUTSIDE RECORDS SUMMARY | 2024-08-20 14:29 | XMS_ITS | Encounter Summary ---
Author Organization [facility] Address [address] [place] [address] Care Team Providers Care General Studies Program Chair Name Role Phone Mariella Ramon MD Primary Care Provider [phone] Reason for Visit * Reason Onset Date Comments Follow-up 02/26/2022 Encounter Details Date Type Department Care Team (Late st Contact Info) Description 02/26/2022 Telephone [facility] Infectious Disease - [facility] [address] [place], [place] [phone] Jerry Sams, [address] [facility], [address] [place] [address] Follow-up Social History Tobacco Use Types Packs/Day Years Used Date Smoking Tobacco: Never Assessed Interpersonal Safety Answer Date Record ed Physically Hurt Never 06/03/2020 Verbally Threaten Not on file 06/03/2020 Sex and Gender Information Value Date Recorded Sex Assigned at Not on file Gender Identity Male 02/20/2022 18:09 EDT Sexual Orientation Not on file documented as of this encounter Miscellaneous Notes * Telephone Encounter - Jerry Sams DO - 02/26/2022 1146 EDT Update from our visit earlier today. U/s 20 February performed on day of d/c showed interval increase in size of L thigh abscess. In retrospect, it looks like [facility] IM placed out pt consult at [facility] to have it drained as out pt. Case d/w IR at [facility]. They have received the consult from IM at [facility] yesterday which was placed last week and will contact the patient to schedule IR drainage at [facility]. Pt and family given this information and were relieved. His phone number is correct in [facility] and he knowsto await call. Labs from 24 February reviewed, creat 0.9. WBC 4.63. We have taken over his OPAT ordersand lab review. Will see us via zoom/phone call and 20 March to follow up on micro cultures if [facility] IR is able to drain his L abscess. Pt is afebrile, well appearing and clinically stable so I don'tthink this warrants emergent drainage today. Pt and family comfortable with plan. documented in this encounter Plan of Treatment Not on file documented as of this encounter Visit Diagnoses Not on filedocumented in this encounter Care Teams General Studies Program Chair Relationship Specialty Start Date End Date Mariella Ramon MD [address] [place] [phone] PCP - General Family Medicine - Primary Care 02/23/22 documented as of this encounter
--- OUTSIDE RECORDS SUMMARY | 2024-08-20 14:29 | XMS_ITS | Encounter Summary ---
Author Organization [facility] Address [address] [place] [address] Care Team Providers Care Column Precaster Name Role Phone Mariella Ramon MD Primary Care Provider [phone] Reason for Visit * Reason Comments Follow-up Encounter Details Date Type Department Care Team (Late st Contact Info) Description 05/06/2022 11:00 EDT Telemedicine [facility] Infectious Disease - [address] [phone] Jerry Sams, [address] [facility], [address] [place] [address] MSSA bacteremia (Primary Dx) Social History Tobacco Use Types Packs/Day Years Used Date Smoking Tobacco: Never Assessed Interpersonal Safety Answer Date Record ed Physically Hurt Never 06/03/2020 Verbally Threaten Not on file 06/03/2020 Sex and Gender Information Value Date Recorded Sex Assigned at Not on file Gender Identity Male 02/20/2022 18:09 EDT Sexual Orientation Not on file documented as of this encounter Progress Notes * Jerry Sams, - 05/06/2022 1100 EDT I spent a total of 30 minutes on the date of this encounter meeting with the patient and reviewing documentation/coordinating care as described in the above note. No procedures were performed at the time of the visit. Division of Infectious Disease Follow up/Progress Note Telephone visit 05/06/22 13:25 The concept of ???Telemedicine?? has been described to the patient.? Patient has been informed of the anticipated benefits and possible risks.? Patient understands the information provided regardingtelemedicine, has had the opportunity to ask questions about this information, and all questions have been answered to patient???s satisfaction. Patient consents for the use of telemedicine in his/her medical care and authorizes the transmission of any relevant medical information to providers and their staff involved in patient???s medical or mental health care. I spent a total of 30 minutes with Lino Ruiz today and 30 minutes of that time was spent in counseling and coordination of care as described in the progress note. Chief Complaint: follow-up care ?? Current antibiotics: Keflex 500mg po QID 22 March- Prior antibiotics Ancef 12 February-present 22 March Vancomycin/ceftriaxone 05 February-08 February Oxacillin 09 February-12 February ?? HPI: Mr. Ruiz is a 52 y.o. male with a history of type 2 diabetes, sleep apnea, prolonged admission at [facility] for MSSA bacteremia that most likely resulted from diabetic foot ulcer and led to bilateral thigh abscesses. Please see initial ID note 26 February for fulldetails. Patient was on a 6-week course of IV Ancef which finished 22 March and as he had residual thigh fluid collections see on u/s, he was transition to chronic keflex 22 March with plan for serial imaging of thighs which was done 01 May. Pt here to discuss results of serial u/s. Currently, pt feels well systemically. He denies fevers, chills, night sweats, nausea, vomiting or diarrhea. Perfect adherence with his antibiotics. He does admit to residual left hip pain, especially at work when he is climbing stairs. He describes it at a 3/10 level. ??Review of Systems: 10-point review of systems is negative except as noted in the HPI. ?? Past Medical History: No past medical history on file. Diabetes HLD Sleep apnea ?? Past Surgical History: No past surgical history on file. Left Achilles tendon repair Right thigh IR guided drainage January 2022 Left thigh IR guided drainage march 2022 ? Current Outpatient Medications Medication Sig ??? ALBUTEROL SULFATE INHALATION Inhale as directed as needed. ??? amLODIPine (NORVASC) 10 mg tablet Take 10 mg by mouth daily. ??? ceFAZolin 2,000 mg in sodium chloride 0.9 % 50 mL Inject 2,000 mg into the vein every 8 hours for 24 days. Or continue until follow-up appointment with ID. Compound in patient ready to use form. Pharmacy may adjust diluent and/or volume. ??? cefazolin sodium (CEFAZOLIN INTRAVENOUS) Inject into the vein daily. ??? diphenhydrAMINE (BENADRYL) 50 mg capsule Take 1 capsule by mouth as needed for up to 1 dose (hives). ??? gabapentin (NEURONTIN) 600 mg tablet Take 600 mg by mouth 2 times daily. ??? insulin detemir U-100 (LEVEMIR) 100 unit/mL injection Inject into the skin at bedtime. ??? IV Infusion Pump Accessory infusion set Use as directed. Order includes administration suppliesand pump (if required), and catheter care supplies for home IV therapy. ??? LOSARTAN-HYDROCHLOROTHIAZIDE ORAL Take by mouth daily. ??? MAGNESIUM OXIDE ORAL Take 200 mg by mouth daily. ??? metFORMIN (GLUCOPHAGE) 1,000 mg tablet Take 1,000 mg by mouth 2 times daily. ??? ondansetron (ZOFRAN) 4 mg tablet Take 8 mg by mouth every 8 hours as needed for Nausea. ??? sertraline (ZOLOFT) 50 mg tablet Take 50 mg by mouth daily. ??? sodium chloride 0.9 %, flush, flush syringe For valved catheters (Groshong, Vaxcel, Solo PICC, Mid-line, and Groshong Chest Port): Flush all lumens with 10 mL every week if not in use. Flush 10 mL before and 10 mL after each medication dose (20 mL after vancomycin doses). Also flush with 20 mL after blood draws. Dispense quantity sufficient. ??? terazosin (HYTRIN) 5 mg capsule Take 5 mg by mouth at bedtime. ??? traMADol (ULTRAM) 50 mg tablet Take 50 mg by mouth every 6 hours as needed for Pain. ??? valACYclovir (VALTREX) 500 mg tablet Take 500 mg by mouth 2 times daily. ? Allergies Allergen Reactions ??? Lisinopril ? Social History ?? Socioeconomic History ??? Marital status: ? Spouse name: Not on file ??? Number [...] Social History Narrative ??? Not on file ?? Social Determinants of Health ?? Financial Resource Strain: Not on file Food Insecurity: Not on file Transportation Needs: Not on file Physical Activity: Not on file Stress: Not on file Social Connections: Not on file ? Family history: Pertinent for ?? The Family History was reviewed and is non-contributory for a past history of infection or immunocompromised state. ?? Physical Exam ?? General: NAD, very pleasant, patient was on the phone with his as well. ?? Microbiology 05 February urine cultures MSSA 05 February blood cultures MSSA??([facility])??susceptible to Cipro, gentamicin, daptomycin, erythromycin, oxacillin, vancomycin 05 February blood cultures no growth 07 February blood cultures MSSA??( [facility]) 08 February blood cultures no growth 12 February right thigh abscess MSSA[place] 02 March left thigh fluid collection no growth ?? Radiology: See official report below ?? 02 march IR report from [facility] 1. ??The anterior left thigh collection appeared smaller in size compared to the prior ultrasound dated 02/20/2022. 2. ??Percutaneous aspiration of two small intramuscular collections in the left thigh (one anterior lateral lower thigh and one lateral proximal thigh), yielding scant volume of serosanguinous fluid. No drainage catheter was left in place. ? 16 March bilateral lower extremity thigh ultrasound Left thigh fluid collection decreased in size measuring 3.9 x 0.3 x 1.4 cm (was 4 x 0.7 x 2.1 cm.) Right thigh fluid collection 2.0 x 0.3 x 1.3 cm ?? 01 May bilat thigh u/s Abscess on R is barely perceptible L sided abscess slightly smaller and now down to 3.9cm x 0.2cm x 0.2cm. Assessment 1. High-grade MSSA bacteremia that most likely stemmed from a diabetic foot ulcer. Plan was 6 weeksof IV Ancef which ended 22 March. Surface echo at outside facility unremarkable. We did not pursue TETO as we were going to treat with 6 weeks of IV antibiotics anyways for thigh abscess 2. Bilateral MSSA thigh abscess. Both were dressed with IR drains. Right thigh drain placed 12 February and cultures grew MSSA. Drain was removed several days later. Left abscess was drained 02 March, cultures were negative, drain never left in. Follow-up ultrasound in March showed residual fluid collections bilaterally. Sterility unclear. Due to residual fluid, we went with plan for continued antibiotic treatment and transitioned him to keflex 22 March. Repeat u/s of thighs 01 May showing essentially resolution on the R side and improvement of L down to 3.9cm x 0.2 cm x 0.2cm. Patient globally doingvery well and just has some residual pain in his left thigh/hip secondary to what is most likely a residual, sterile fluid collection. We had a long discussion on how we cannot really assure that theremaining fluid is sterile or not but he has been on antibiotics for 3 months now and clinically feels well so I think it is reasonable to go ahead and stop and just follow clinically. Patient very comfortable with this plan as well after prolonged discussion with shared decision making. Patient kno ws to reach out to me if he develops fevers or chills and is very comfortable with plan. 3. Diabetes, suspect DM foot lesion led to bacteremia. 4. Sleep apnea 5. HLD ?? Plan: 1. We will go ahead and stop long-term antibiotics today and follow clinically. 2. We will fax my note to primary care provider, Dr Ramon [phone] ?? It has been a pleasure seeing Mr. Ruiz in clinic today. All questions answered. ?? Jerry Sams DO Pager [phone] Infectious Diseases documented in this encounter Plan of Treatment Not on file documented as of this encounter Visit Diagnoses Diagnosis MSSA bacteremia- Primary documented in this encounter Care Teams Column Precaster Relationship Specialty Start Date End Date Mariella Ramon MD [address] [place] [id number] PCP - General Family Medicine - Primary Care 02/23/22 documented as of this encounter
--- OUTSIDE RECORDS SUMMARY | 2024-08-20 14:29 | XMS_ITS | Encounter Summary ---
[place] [address] Care Team Providers Care Restaurant Host Name Role Phone Mariella Ramon MD Primary Care Provider [phone] Reason for Referral * Diagnostic Test (Routine) - Closed Specialty Diagnoses / Procedures Referred By Contac t Referred To Contact Radiology Diagnoses Low back pain, unspecified back pain laterality, unspecified chronicity, unspecified whether sciatica present Procedures MRI Lumbar Spine wo Contrast (Generic) Mariella Ramon MD [address] [place] [address] [place] [address] Referral ID Status Reason Start Date Expiration Date V isits Requested Visits Authorized [id number] Closed Specialty Service Requested 02/15/2024 08/16/2025 1 1 Reason for Visit * Diagnostic Test (Routine) - Closed Specialty Diagnoses / Procedures Referred By Contac t Referred To Contact Radiology Diagnoses Low back pain, unspecified back pain laterality, unspecified chronicity, unspecified whether sciatica present Procedures MRI Lumbar Spine wo Contrast (Generic) Mariella Ramon MD [address] [place] [address] [place] [address] Referral ID Status Reason Start Date Expiration Date V isits Requested Visits Authorized [id number] Closed Specialty Service Requested 02/15/2024 08/16/2025 1 1 Encounter Details Date Type Department Care Team (Latest Contact Info) Description 02/22/2024 6:57 AM EDT - 02/22/2024 11:59 PM EDT Hospital [place] [address] Mariella Ramon MD [address] [place] [address] Low back pain, unspecified back pain laterality, unspecified chronicity, unspecified whether sciatica present Discharge Disposition: Home Social History Tobacco Use [...] on file documented as of this encounter Medications at Time of Discharge Medication Sig Dispensed Refills Start Date End Date CIS Free Text Med - Albuterol 12/14/2008 hydrochlorothiazide (HYDRODIURIL) 25 mg tablet 12/14/2008 metoprolol tartrate (LOPRESSOR) 50 mg tablet 12/14/2008 sitaGLIPtin-metFORMIN (JANUMET) 50-1,000 mg per tablet 1 Tablet(s), PO, Twice daily 12/14/2008 documented as of this encounter Plan of Treatment Not on file documented as of this encounter Procedures Procedure Name Priority Date/Time Associated Diagnosis Comments MRI LUMBAR SPINE WITHOUT CONTRAST Routine 02/22/2024 7:50 AM EDT Low back pain, unspecified back pain laterality, unspecified chronicity, unspecified whether sciatica present documented in this encounter Results * MRI Lumbar Spine wo Contrast (Generic) (02/22/2024 7:50 AM EDT) WORKSTATION ID [id number] [facility] Anatomical Region Laterality Modality L-spine Magnetic Resonan ce Impressions 02/22/2024 3:08 PM EDT Mild lumbar spine degenerative changes as above. Comment: The following findings are so common in people without low back pain that while we report their presence, they must be interpreted with caution and in context of the clinical situation (Reference- Austink Et Al, Spine 2001). Findings: (Prevalence in patients without low back pain), disc degeneration (decreased T2 signal, height loss, bulge) (91%), disc T2-signal loss (83%), disc height loss (56%), disc bulge (64%), disc protrusion (32%), annular fissure (38%). Thank you for letting us participate in the care of this patient. ??If you are a health care provider and have any questions regarding this report, please contact the number below. ??For patients who have questions please contact the health outdoor emergency care technician that requested your imaging first. ? Electronically signed by: Navneet Gagnon MD, [facility] ([phone]), at 02/22/2024 3:08 PM Narrative 02/22/2024 3:08 PM EDT EXAMINATION: MRI LUMBAR SPINE WO CONTRAST (GENERIC) CLINICAL HISTORY: low back pain M54.50, Low back pain, unspecified TECHNIQUE: MRI of the lumbar spine performed without intravenous contrast administration. COMPARISON: None FINDINGS: Overall lumbar alignment is unremarkable. There is no focal, aggressive appearing marrow lesion. The normal appearing conus terminates at the L2 level. Visualized retroperitoneal structures are unremarkable. Findings at specific levels: L1-L2: No canal or foraminal stenosis. L2-L3: There is slight disc bulging without canal or foraminal stenosis. L3-L4: No canal or foraminal stenosis. L4-L5: There is slight disc bulging and facet arthropathy without canal or foraminal stenosis. L5-S1: A right foraminal lateral disc trusion is present in the background of disc bulge. This contributes to mild right foraminal narrowing. There is no canal stenosis. There are bilateral facet degenerative changes. Procedure Note Navneet Gagnon MD - 02/22/2024 EXAMINATION: MRI LUMBAR SPINE WO CONTRAST (GENERIC) CLINICAL HISTORY: low back pain M54.50, Low back pain, unspecified TECHNIQUE: MRI of the lumbar spine performed without intravenous contrastadministration. COMPARISON: None FINDINGS: Overall lumbar alignment is unremarkable. There is no focal, aggressive appearing marrow lesion. The normal appearing conus terminates at the T1bluat. Visualized retroperitoneal structures are unremarkable. Findings at specific levels: L1-L2: No canal or foraminal stenosis. L2-L3: There is slight disc bulging without canal or foraminal stenosis. L3-L4: No canal or foraminal stenosis. L4-L5: There is slight disc bulging and facet arthropathy without canalor foraminal stenosis. L5-S1: A right foraminal lateral disc trusion is present in the backgroundof disc bulge. This contributes to mild right foraminal narrowing. There isno canal stenosis. There are bilateral facet degenerative changes. IMPRESSION Mild lumbar spine degenerative changes as above. Comment: The following findings are so common in people without low backpain that while we report their presence, they must be interpreted with cautionand in context of the clinical situation (Reference- Michael Et Al, [id number]). Findings: (Prevalence in patients without low back pain), discdegeneration (decreased T2 signal, height loss, bulge) (91%), disc T2-signal loss(83%), disc height loss (56%), disc bulge (64%), disc protrusion (32%), annularfissure (38%). Thank you for letting us participate in the care of this patient. If youare a health care provider and have any questions regarding this report,please contact the number below. For patients who have questions please contactthe health outdoor emergency care technician that requested your imaging first. Mariella Ramon MD IMG MRI ORDERABLES documented in this encounter Visit Diagnoses Diagnosis Low back pain, unspecified back pain laterality, unspecified chronicity, unspecified whether sciatica present documented in this encounter Care Teams Restaurant Host Relationship Specialty Start Date End Date Mariella Ramon MD [address] [place] [address] PCP - General Family Medicine 06/01/19 documented as of this encounter
--- OUTSIDE RECORDS SUMMARY | 2024-08-20 14:29 | XMS_ITS | Encounter Summary ---
Author Organization [facility] [place] [address] Care Team Providers Care Galvanizer Name Role Phone Mariella Ramon MD Primary Care Provider [phone] Encounter Details Date Type Department Care Team (Late st Contact Info) Description 02/20/2022 11:05 AM EDT Ancillary Procedure Radiology Library at [facility] [place] [phone] Mariella Ramon MD [address] [place], [place] [id number] Social History Tobacco Use Types Packs/Day Years [...] FILM LIBRARY STORAGE ONLY ULTRASOUND STUDY Routine 02/20/2022 11:02 AM EDT documented in this encounter Results * Film Library- Storage Only Ultrasound Study (02/20/2022 11:02 AM EDT) Narrative PING - 02/20/2022 11:02 AM EDT This exam is auto-finalizing. It's purpose is for storage only. Mariella Ramon MD G FILM LIBRARY ORD ERABLES [facility] [place] documented in this encounter Visit Diagnoses Not on filedocumented in this encounter Care Teams Galvanizer Relationship Specialty Start Date End Date Mariella Ramon MD [address] [place] [address] PCP - General Family Medicine 06/01/19 documented as of this encounter
--- OUTSIDE RECORDS SUMMARY | 2024-08-20 14:29 | XMS_ITS | Encounter Summary ---
Author Organization [facility] Address [address] [place] [address] Care Team Providers Care Director Sterile Processing Name Role Phone Mariella Ramon MD Primary Care Provider [phone] Reason for Visit * (Routine/Next Available) - Receiving Office to Obtain Authorization Specialty Diagnoses / Procedures Referred By Contac t Referred To Contact Procedures US OUTSIDE IMAGES BODY Unknown, Provider, Referral ID Status Reason Start Date Expiration Date Visits Requested Visits Authorized [id number] Receiving Office to Obtain Authorization 03/16/2022 1 1 Encounter Details Date Type Department Care Team (Latest Contact Info) Description 03/16/2022 11:06 EDT - 03/16/2022 23:59 EDT Hospital Encounter [facility] Secondary [place] Discharge Disposition: Home or Self Care Social History Tobacco Use Types Packs/Day Years [...] Sig Dispensed Refills Start Date End Date ALBUTEROL SULFATE INHALATION Inhale as directed as needed. amLODIPine (NORVASC) 10 mg tablet Take 10 mg by mouth daily. cefazolin sodium (CEFAZOLIN INTRAVENOUS) Inject into the vein daily. diphenhydrAMINE (BENADRYL) 50 mg capsuleIndications:H igh risk medication use Take 1 capsule by mouth as needed for up to 1 dose (hives). 2 capsule 02/26/2022 gabapentin (NEURONTIN) 600 mg tablet Take 600 mg by mouth 2 times daily. insulin detemir U-100 (LEVEMIR) 100 unit/mL injection Inject into the skin at bedtime. LOSARTAN-HYDROCHLORO THIAZIDE ORAL Take by mouth daily. MAGNESIUM OXIDE ORAL Take 200 mg by mouth daily. metFORMIN (GLUCOPHAGE) 1,000 mg tablet Take 1,000 mg by mouth 2 times daily. ondansetron (ZOFRAN) 4 mg tablet Take 8 mg by mouth every 8 hours as needed for Nausea. sertraline (ZOLOFT) 50 mg tablet Take 50 mg by mouth daily. terazosin (HYTRIN) 5 mg capsule Take 5 mg by mouth at bedtime. traMADol (ULTRAM) 50 mg tablet Take 50 mg by mouth every 6 hours as needed for Pain. valACYclovir (VALTREX) 500 mg tablet Take 500 mg by mouth 2 times daily. ceFAZolin 2,000 mg in sodium chloride 0.9 % 50 mLIndications:MSSA bacteremia Inject 2,000 mg into the vein every 8 hours for 24 days. Or continue until follow-up appointment with ID. Compound in patient ready to use form. Pharmacy may adjust diluent and/or volume. 0 02/26/2022 03/22/2022 IV Infusion Pump Accessory infusion setIndications:High risk medication use Use as directed. Order includes administration supplies and pump (if required), and catheter care supplies for home IV therapy. 0 02/26/2022 03/22/2022 sodium chloride 0.9 %, flush, flush syringeIndications:H igh risk medication use For valved catheters (Groshong, Vaxcel, Solo PICC, Mid-line, and Groshong Chest Port): Flush all lumens with 10 mL every week if not in use. Flush 10 mL before and 10 mL after each medication dose (20 mL after vancomycin doses). Also flush with 20 mL after blood draws. Dispense quantity sufficient. 02/26/2022 02/26/2023 documented as of this encounter Discharge Disposition Disposition Code Departure Means Destination Home or Self Care documented in this encounter Plan of Treatment Not on file documented as of this encounter Procedures Procedure Name Priority Date/Time Associated Diagnosis Comments US OUTSIDE IMAGES BODY Routine 03/16/2022 11:06 EDT documented in this encounter Results * US OUTSIDE IMAGES BODY (03/16/2022 11:06 EDT) Narrative 03/16/2022 11:06 EDT This is a non-reportable exam. Provider Unknown MD ZURITA OTHER IMAGING OR DERABLES documented in this encounter Visit Diagnoses Not on filedocumented in this encounter Care Teams Director Sterile Processing Relationship Specialty Start Date End Date Mariella Ramon MD [address] [place] [address] PCP - General Family Medicine - Primary Care 02/23/22 documented as of this encounter
--- OUTSIDE RECORDS SUMMARY | 2024-08-20 14:29 | XMS_ITS | Encounter Summary ---
Author Organization [facility] [place] [address] Care Team Providers Care Music Producer Name Role Phone Mariella Ramon MD Primary Care Provider [phone] Encounter Details Date Type Department Care Team (Late st Contact Info) Description 02/09/2022 Ancillary Procedure Radiology Library at [facility] [place] [phone] Mariella Ramon MD [address] [place], [place] [phone] Social History Tobacco Use Types Packs/Day Years [...] Associated Diagnosis Comments FILM LIBRARY STORAGE ONLY MR LOWER EXTREMITY Routine 02/09/2022 12:00 AM EDT documented in this encounter Results * Film Library- Storage Only MR Lower Extremity (02/09/2022 12:00 AM EDT) Narrative [facility] - 02/10/2022 8:41 AM EDT This exam is auto-finalizing. It's purpose is for storage only. Mariella Ramon MD G FILM LIBRARY ORD ERABLES [place], [place] documented in this encounter Visit Diagnoses Not on filedocumented in this encounter Care Teams Music Producer Relationship Specialty Start Date End Date Mariella Ramon MD [address] [place] [address] PCP - General Family Medicine 06/01/19 documented as of this encounter
--- OUTSIDE RECORDS SUMMARY | 2024-08-20 14:29 | XMS_ITS | Encounter Summary ---
Author Organization [facility] Address [address] [place] [address] Care Team Providers Care Account Adjuster Name Role Phone Mariella Ramon MD Primary Care Provider [phone] Reason for Visit * Reason Onset Date Comments Pharmacy 03/23/2022 Encounter Details Date Type Department Care Team (Late st Contact Info) Description 03/23/2022 Telephone [facility] Infectious Disease - [address] [id number] Jerry Sams, DO [address] [facility], [address] [place] [address] Pharmacy Social History Tobacco Use Types Packs/Day Years [...] encounter Miscellaneous Notes * Telephone Encounter - Haven Bolanos RN - 03/23/2022 8106 EDT Confirmed with pt PICC was removed today by PCP per plan Advised pt that we did fax order for ultrasound to [facility]- he should wait to hear for scheduling, butcall if has not heard by end of week I contacted [facility] care to advise PICC is done, no longer need their services * Telephone Encounter - Payton Justice - 03/23/2022 1401 EDT Maria M from [facility] pharmacy states that end date of therapy was yesterday. Asking for plan. Would like a call back at [phone]. documented in this encounter Plan of Treatment Not on file documented as of this encounter Visit Diagnoses Not on filedocumented in this encounter Care Teams Account Adjuster Relationship Specialty Start Date End Date Mariella Ramon MD [address] [place] [address] PCP - General Family Medicine - Primary Care 02/23/22 documented as of this encounter
--- OUTSIDE RECORDS SUMMARY | 2024-08-20 14:29 | XMS_ITS | Encounter Summary ---
Author Organization [facility] Address [address] [place] [address] Care Team Providers Care Sushi Chef Name Role Phone Mariella Ramon MD Primary Care Provider [phone] Reason for Visit * Reason Onset Date Comments IV Maintenance 03/20/2022 Encounter Details Date Type Department Care Team (Late st Contact Info) Description 03/20/2022 Telephone [facility] Infectious Disease - [facility] [address] [place], [place] [address] Jerry Sams, DO 111 [facility], [address] [place] [address] IV Maintenance Social History Tobacco Use Types Packs/Day Years [...] encounter Miscellaneous Notes * Telephone Encounter - Maryjane Arce RN - 03/20/2022 0653 EDT Please see plan below per Dr. Sams. Order placed for bilateral thigh ultrasound to be completed at [facility] hospital 5-6 weeks from now. Faxed order to [facility] Radiology. Phoned Dr. Ramon's office at [facility]. Confirmed with their office Dr. Ramon will remove patient's PICC line at visit with her on Friday 03/23. MARYJANE ARCE RN Could we please order a bilateral thigh ultrasound in about 5-6 weeks from now? ??We are following abscesses in his bilateral thigh muscles that could not be completely drained. ??Patient is on long-term antibiotics. ??Could we please order this to the radiology department up at the hospital in [facility]? ?? ID RN team. ??Patient will finish his 6 weeks of Ancef on 22 March. ??Patient has a visit with his primary care provider on Wednesday, at the [facility], Dr. Ramon, who had already told the patient (per his report) that they can pull the PICC line on his routine follow-up visit scheduled 23 March. I try to fax my note from today's visit to their clinic but I am not sure it went through. ??Could somebody please relay this message to Dr. Ramon's nurse? ??Thank you, Per * Telephone Encounter - Nona Coffman MA - 03/20/2022 1323 EDT Received call from Nicki at [facility] stating they have orders for patient ending treatment on 03/22/22. Nicki would like to receive orders to discontinue IV antibiotics and picc line. Fax # [phone] documented in this encounter Plan of Treatment Not on file documented as of this encounter Visit Diagnoses Diagnosis Abscess- Primary Cellulitis and abscess of unspecified site Abscess of left thigh Cellulitis and abscess of leg, except foot Abscess of right thigh Cellulitis and abscess of leg, except foot MSSA bacteremia documented in this encounter Care Teams Sushi Chef Relationship Specialty Start Date End Date Mariella Ramon MD [address] [place] [address] PCP - General Family Medicine - Primary Care 02/23/22 documented as of this encounter
--- OUTSIDE RECORDS SUMMARY | 2024-08-20 14:29 | XMS_ITS | Encounter Summary ---
Author Organization [facility] Address [address] [place] [address] Care Team Providers Care Licensed Mental Health Professional Name Role Phone Mariella Ramon MD Primary Care Provider [phone] Reason for Referral * Laboratory Services (Routine/Next Available) - New Request Specialty Diagnoses / Procedures Referred By Contac t Referred To Contact Diagnoses High risk medication use Procedures C REACTIVE PROTEIN Jerry Sams DO [address] [address] Referral ID Status Reason Start Date Expiration Date V isits Requested Visits Authorized [id number] New Request 02/26/2022 1 1 * Laboratory Services (Routine/Next Available) - New Request Specialty Diagnoses / Procedures [facility] Referred To Contact Diagnoses High risk medication use Procedures SED RATE Jerry Sams DO [address] [address] Referral ID Status Reason Start Date Expiration Date V isits Requested Visits Authorized [id number] New Request 02/26/2022 1 1 * Laboratory Services (Routine/Next Available) - New Request Specialty Diagnoses / Procedures [facility] Referred To Contact Diagnoses High risk medication use Procedures CREATININE Jerry Sams DO [address] [place] [phone] Referral ID Status Reason Start Date Expiration Date V isits Requested Visits Authorized [id number] New Request 02/26/2022 1 1 * Laboratory Services (Routine/Next Available) - New Request Specialty Diagnoses / Procedures Referred By Contkassandra shah Referred To Contact Diagnoses High risk medication use Procedures Jerry Mc DO [address] [place] [phone] Referral ID Status Reason Start Date Expiration Date V isits Requested Visits Authorized [id number] New Request 02/26/2022 1 1 * Laboratory Services (Routine/Next Available) - New Request Specialty Diagnoses / Procedures Referred By Salena shah Referred To Contact Diagnoses High risk medication use Procedures COMPLETE BLOOD COUNT AND DIFFERENTIAL Jerry Sams DO [address] [place] [phone] Referral ID Status Reason Start Date Expiration Date V isits Requested Visits Authorized [id number] New Request 02/26/2022 1 1 Reason for Visit * Reason Onset Date Comments Follow-up 02/26/2022 Switching care f [facility] Encounter Details Date Type Department Care Team (Late st Contact Info) Description 02/26/2022 Orders Only [facility] [place] [address] Irish Barrera RN Abscess of left thigh (Primary Dx); High risk medication use; MSSA bacteremia; Abscess of right thigh Social History Tobacco Use Types Packs/Day Years Used Date Smoking Tobacco: Never Assessed Interpersonal Safety Answer Date Record ed Physically Hurt Never 06/03/2020 Verbally Threaten Not on file 06/03/2020 Sex and Gender Information Value Date Recorded Sex Assigned at Not on file Gender Identity Male 02/20/2022 18:09 EDT Sexual Orientation Not on file documented as of this encounter Ordered Prescriptions Prescription Sig Dispensed Refills Start Date End Da te diphenhydrAMINE (BENADRYL) 50 mg capsuleIndications:Hi gh risk medication use Take 1 capsule by mouth as needed for up to 1 dose (hives). 2 capsule 02/26/2022 ceFAZolin 2,000 mg in sodium chloride 0.9 [...] 03/22/2022 sodium chloride 0.9 %, flush, flush syringeIndications:Hi gh risk medication use For valved catheters (Groshong, Vaxcel, Solo PICC, Mid-line, and Groshong Chest Port): Flush all lumens with 10 mL every week if not in use. Flush 10 mL before and 10 mL after each medication dose (20 mL after vancomycin doses). Also flush with 20 mL after blood draws. Dispense quantity sufficient. 02/26/2022 02/26/2023 documented in this encounter Progress Notes * Irish Barrera RN - 02/26/2022 1020 EDT Orders re-written and sent to [facility]. Weekly labs are cbc/d, BUN, Creatinine, Sed Rate, CRP also faxed. Order written for US of both thighs to be done week of . Has OPAT follow-up with Sylvie Olguin NP on 08/10/22. Also sent information on PICC insertion (02/18) at [facility]. documented in this encounter Plan of Treatment Scheduled Orders Name Type Priority Associated Diagnoses Orde r Schedule COMPLETE BLOOD COUNT AND DIFFERENTIAL Lab Routine High risk medication use Ordered: 02/26/2022 BUN Lab Routine High risk medication use Ordered: 02/26/2022 CREATININE Lab Routine High risk medication use Ordered: 02/26/2022 SED RATE Lab Routine High risk medication use Ordered: 02/26/2022 C REACTIVE PROTEIN Lab Routine High risk medication use Ordered: 02/26/2022 documented as of this encounter Visit Diagnoses Diagnosis Abscess of left thigh- Primary Cellulitis and abscess of leg, except foot High risk medication use Encounter for long-term (current) use of other medications MSSA bacteremia Abscess of right thigh Cellulitis and abscess of leg, except foot documented in this encounter Orders Nursing Count Last Ordered Date First Orde red Date CHECK CENTRAL LINE 1 02/26/2022 LAB INSTRUCTIONS 1 02/26/2022 NURSING COMMUNICATION 1 02/26/2022 NURSING IV THERAPY - MISCELLANEOUS 1 2021 IV Count Last Ordered Date First Orde red Date BLOOD DRAW/ADMIN OF CONTRAST PER CVAD PROTOCOL 1 02/26/2022 documented in this encounter Care Teams Licensed Mental Health Professional Relationship Specialty Start Date End Date Mariella Ramon MD [address] [place] [address] PCP - General Family Medicine - Primary Care 02/23/22 documented as of this encounter
--- OUTSIDE RECORDS SUMMARY | 2024-08-20 14:29 | XMS_ITS | Encounter Summary ---
Author Organization [facility] Address [address] [place] [address] Care Team Providers Care Mellowing Machine Operator Name Role Phone Mariella Ramon MD Primary Care Provider [phone] Reason for Visit * (Routine/Next Available) - Receiving Office to Obtain Authorization Specialty Diagnoses / Procedures Referred By Contkassandra t Referred To Contact Procedures US OUTSIDE IMAGES BODY Unknown, Provider, Referral ID Status Reason Start Date Expiration Date Visits Requested Visits Authorized [id number] Receiving Office to Obtain Authorization 05/01/2022 1 1 Encounter Details Date Type Department Care Team (Latest Contact Info) Description 05/01/2022 16:06 EDT - 05/01/2022 23:59 EDT Hospital Encounter [facility] Secondary Reads [place] Discharge Disposition: Home [...] the vein daily. diphenhydrAMINE (BENADRYL) 50 mg capsuleIndications:Hig h risk medication use Take 1 capsule by mouth as needed for up to 1 dose (hives). 2 capsule 02/26/2022 gabapentin (NEURONTIN) 600 mg tablet Take 600 mg by mouth 2 times daily. insulin detemir U-100 (LEVEMIR) 100 unit/mL injection Inject into the skin at bedtime. LOSARTAN-HYDROCHLOROTH IAZIDE ORAL Take by mouth daily. MAGNESIUM OXIDE [...] 500 mg by mouth 2 times daily. sodium chloride 0.9 %, flush, flush syringeIndications:Hig h risk medication use For valved catheters (Groshong, [...] Diagnosis Comments US OUTSIDE IMAGES BODY Routine 05/01/2022 16:06 EDT documented in this encounter Results * US OUTSIDE IMAGES BODY (05/01/2022 16:06 EDT) Narrative 05/01/2022 16:06 EDT This is a non-reportable exam. Provider Unknown MD ZURTIA OTHER IMAGING OR DERABLES documented in this encounter Visit Diagnoses Not on filedocumented in this encounter Care Teams Mellowing Machine Operator Relationship Specialty Start Date End Date Mariella Ramon MD [address] [place] [address] PCP - General Family Medicine - Primary Care 02/23/22 documented as of this encounter
--- OUTSIDE RECORDS SUMMARY | 2024-08-20 14:29 | XMS_ITS | Encounter Summary ---
Author Organization [facility] Address [address] [place] [address] Care Team Providers Care Circus Roustabout Name Role Phone Mariella Raomn MD Primary Care Provider [phone] Reason for Visit * Reason Onset Date Comments Other 03/24/2022 Encounter Details Date Type Department Care Team (Late st Contact Info) Description 03/24/2022 Telephone [facility] Infectious Disease - [address] [id number] Jerry Sams, DO 111 [facility], [address] [place] [address] Other Social History Tobacco Use Types Packs/Day Years [...] encounter Miscellaneous Notes * Telephone Encounter - Nona Coffman MA - 03/24/2022 1431 EDT Received call from [facility] nurse, Kathy, who confirms patients picc line has been removed andthey are discharging patient from services. Any additional jd and Kathy can be reached at [phone]. documented in this encounter Plan of Treatment Not on file documented as of this encounter Visit Diagnoses Not on filedocumented in this encounter Care Teams Circus Roustabout Relationship Specialty Start Date End Date Mariella Ramon MD [address] [place] [address] PCP - General Family Medicine - Primary Care 02/23/22 documented as of this encounter
--- OUTSIDE RECORDS SUMMARY | 2024-08-20 14:29 | XMS_ITS | Encounter Summary ---
Author Organization [facility] Address [address] [place] [address] Care Team Providers Care Manager Of Training And Development Name Role Phone Mariella Ramon MD Primary Care Provider [phone] Reason for Visit * Reason Comments Follow-up Encounter Details Date Type Department Care Team (Late st Contact Info) Description 03/10/2022 9:00 EDT Telemedicine [facility] Infectious Disease - [address] [id number] Sylvie Olguin NP 111 [facility], [address] [place] [address] MSSA bacteremia (Primary Dx); Abscess of right thigh Social History Tobacco [...] as of this encounter Progress Notes * Sylvie Olguin NP - 03/10/2022 0900 EDT Infectious Disease Clinic OPAT Progress Note Today's Date: 03/10/2022 Visit via: TELEPHONE. The concept of Telemedicine has been described to the patient. Patient has been informed of the anticipated benefits and possible risks. Patient understands the information provided regarding telemedicine, has had the opportunity to ask questions about this information, and all questions have been answered to patient's satisfaction. Patient consents for the use of telemedicine in his/her medical care and authorizes the transmission of any relevant medical information to providers and their staff involved in patient's medical or mental health care. I spent a total of 20minutes with Lino Ruiz today and 20 minutes of that time was spent in counseling and coordination of care as described in the progress note. ?? Demographics HPI: Lino Ruiz is a 52 y.o. year old male following up for OPAT. He is currently being treatedwith Cefazolin for MSSA bacteremia, he is tolerating the IV antibiotics well with no side effects. He continues with fatigue, and is going to establish working with PT again. He had an abscess on his Left thigh which was drained at [facility]- cultures did not grow anything.He is no longer having any pain in that thigh. ROS: a 10 point ROS is otherwise negative. Social History: Lino Ruiz . Family History: Reviewed and is non-contributory for a past history of infection or immunocompromised state. Physical Exam: gen a x3 in ?? Clinical Data Current antimicrobials: Parenteral: cefazolin Oral: None Indication: bacteremia (uncomplicated) Planned Stop date: March 22, 2022 Is there plan to convert to PO antibiotics upon completion of IV antibiotics: Unclear- determined by results of ultrasound of abscess. Adverse Events Adverse symptoms from antibiotics: None Central line type: PICC Central line complications: None ?? Are weekly labs available for review today? Yes. Clinically significant new abnormalities: No Specific lab abnormalities: None Other data reviewed: 03/02/2022 Anaerobic culture no growth 03/02/2022 abscess wound culture no growth 05 February urine cultures MSSA 05 February blood cultures MSSA ([facility]) susceptible to Cipro, gentamicin, daptomycin, erythromycin, oxacillin, vancomycin 05 February blood cultures no growth 07 February blood cultures MSSA ( [facility]) 08 February blood cultures no growth 12 February right thigh abscess MSSA ([facility]) Assessment/Plan MSSA Bactermia, blood cultures positive on the . Cleared on February 08. Currently on IV Cefazolin for a six week total. Tolerating it well. Left thigh abscess- drained at [facility], no growth on cultures. Will complete an ultrasound around03/17 at [facility] to determine if abscess has cleared. If there is still residual abscess plan will be to put on oral Keflex. Follow up Is this the final visit specifically for OPAT? No. Next visit date: 03/20/2022. Does patient need a longer than expected course of OPAT? no documented in this encounter Plan of Treatment Not on file documented as of this encounter Visit Diagnoses Diagnosis MSSA bacteremia- Primary Abscess of right thigh Cellulitis and abscess of leg, except foot documented in this encounter Care Teams Manager Of Training And Development Relationship Specialty Start Date End Date Mariella Ramon MD [address] [place] [address] PCP - General Family Medicine - Primary Care 02/23/22 documented as of this encounter
--- OUTSIDE RECORDS SUMMARY | 2024-08-20 14:29 | XMS_ITS | Encounter Summary ---
Author Organization [facility] [place] [address] Care Team Providers Care Gas Jockey Name Role Phone Mariella Ramon MD Primary Care Provider [phone] Encounter Details Date Type Department Care Team (Late st Contact Info) Description 02/07/2022 12:05 AM EDT Ancillary Procedure Radiology Library at [facility] [place] [phone] Mariella Ramon MD [address] [place], [place] [id number] Social History Tobacco Use Types Packs/Day Years [...] Associated Diagnosis Comments FILM LIBRARY STORAGE ONLY DX LOWER EXTREMITY Routine 02/07/2022 12:05 AM EDT documented in this encounter Results * Film Library- Storage Only DX Lower Extremity (02/07/2022 12:05 AM EDT) Narrative PING - 02/17/2022 11:53 AM EDT This exam is auto-finalizing. It's purpose is for storage only. Mariella Ramon MD IMG FILM LIBRARY ORD ERABLES [place], [place] documented in this encounter Visit Diagnoses Not on filedocumented in this encounter Care Teams Gas Jockey Relationship Specialty Start Date End Date Mariella Ramon MD [address] [place] [address] PCP - General Family Medicine 06/01/19 documented as of this encounter
--- OUTSIDE RECORDS SUMMARY | 2024-08-20 14:29 | XMS_ITS | Clinical Summary ---
Author Organization [facility] [place] [address] Care Team Providers Care Global Expansion Sales Director Name Role Phone Mariella Ramon MD Primary Care Provider [phone] Allergies Active Allergy Reactions Criticality Noted Date Comments Lisinopril Low 02/26/2022 Medications Medication Sig Dispensed Refills Start Date End Date Status CIS Free Text Med - Albuterol 12/14/2008 Active hydrochlorothiazide (HYDRODIURIL) 25 mg tablet 12/14/2008 Active metoprolol tartrate (LOPRESSOR) 50 mg tablet 12/14/2008 Active sitaGLIPtin-metFORMIN (JANUMET) 50-1,000 mg per tablet 1 Tablet(s), PO, Twice daily 12/14/2008 Active Social History Tobacco Use Types Packs/Day Years Used Date Smoking Tobacco: Never Smokeless Tobacco: Never Alcohol Use Standard Drinks/Week Comments Not Currently 0 (1 standard drink = 0.6 oz pur e alcohol) Sex and Gender Information Value Date Recorded Sex Assigned at Male 02/26/2022 5:17 PM EDT Gender Identity Not on file Sexual Orientation Not on file Last Filed Vital Signs Vital Sign Reading Time Taken Comments Blood Pressure 143/92 03/02/2022 3:36 PM EDT Pulse 73 03/02/2022 2:21 PM EDT Temperature 36.1 ??C (97 ??F) 03/02/2022 2:58 PM EDT Respiratory Rate 16 03/02/2022 2:21 PM EDT Oxygen Saturation 97% 03/02/2022 3:36 PM EDT Inhaled Oxygen Concentration - - Weight - - Height - - Body Mass Index - - Plan of Treatment Health Maintenance Due Date Last Done Comments CT Colonography 1972 Colonoscopy 1972 Colorectal Cancer Screening 1972 FIT DNA 1972 FIT 1972 Sigmoidoscopy (10 year) with FIT yearly 1972 Sigmoidoscopy 1972 HIV screen 1990 Hepatitis C Screening 1990 Lipid Screening 1990 Hepatitis B vaccine (0-59 yrs) (1) 1991 Tetanus/Diphtheria/Pertussis Vaccines (1 - Tdap) 03/07 Zoster vaccine (1 of 2) 2022 Covid-19 Vaccine (1 - 2022-24 season) 2024 Influenza (Flu) vaccine (1 o f 1 - Influenza standard series) 07/02/2024 Advance Directives * Attempt Cardiopulmonary Resuscitation - Inpatient (Latest Code Status on File) Date Activated Date Inactivated Comments 03/02/2022 2:08 PM 03/03/2022 4:38 AM Question Answer Comments Code Status decision made by: Patient * Attempt Cardiopulmonary Resuscitation - Inpatient Date Activated Date Inactivated Comments 02/12/2022 10:09 AM 02/13/2022 4:34 AM Question Answer Comments Code Status decision made by: Patient Care Teams Global Expansion Sales Director Relationship Specialty Start Date End Date Mariella Ramon MD [address] [place], [place] [address] PCP - General Family Medicine 06/01/19
--- OUTSIDE RECORDS SUMMARY | 2024-08-20 14:29 | XMS_ITS | Encounter Summary ---
Author Organization [facility] [place] [address] Care Team Providers Care Mill Operator Head Name Role Phone Mariella Ramon MD Primary Care Provider [phone] Encounter Details Date Type Department Care Team (Late st Contact Info) Description 02/16/2022 8:45 PM EDT Ancillary Procedure Radiology Library at [facility] [place] [phone] Mariella Ramon MD [address] [place] [address] Social History Tobacco Use Types Packs/Day Years [...] LIBRARY STORAGE ONLY CT LOWER EXTREMITY Routine 02/16/2022 8:40 PM EDT documented in this encounter Results * Film Library- Storage Only CT Lower Extremity (02/16/2022 8:40 PM EDT) Narrative PING - 02/16/2022 8:40 PM EDT This exam is auto-finalizing. It's purpose is for storage only. Mariella Ramon MD IMG FILM LIBRARY ORD ERABLES [place], [place] documented in this encounter Visit Diagnoses Not on filedocumented in this encounter Care Teams Mill Operator Head Relationship Specialty Start Date End Date Mariella Ramon MD [address] [place] [address] PCP - General Family Medicine 06/01/19 documented as of this encounter
--- OUTSIDE RECORDS SUMMARY | 2024-08-20 14:29 | XMS_ITS | Encounter Summary ---
Author Organization [facility] Address [address] [place] [address] Care Team Providers Care Mushroom Press Operator Name Role Phone Mariella Ramon MD Primary Care Provider [phone] Reason for Visit * Reason Onset Date Comments Appointment Related 02/23/2022 Encounter Details Date Type Department Care Team (Late st Contact Info) Description 02/23/2022 Telephone [facility] Non-Invasive Cardiology - [facility] [address] [place], [place] [id number] Janae Ngo MD [address] [place] [address] Appointment Related Social History Tobacco Use Types Packs/Day Years [...] encounter Miscellaneous Notes * Telephone Encounter - Amy Gutierrez - 02/23/2022 0840 EDT Pt called to schedule TETO. Faxed Non-invasive order form to referring office. documented in this encounter Plan of Treatment Not on file documented as of this encounter Visit Diagnoses Not on filedocumented in this encounter Care Teams Mushroom Press Operator Relationship Specialty Start Date End Date Mariella Ramon MD [address] [place] [address] PCP - General Family Medicine - Primary Care 02/23/22 documented as of this encounter
--- OUTSIDE RECORDS SUMMARY | 2024-08-20 14:29 | XMS_ITS | Encounter Summary ---
Author Organization [facility] Address [address] [place] [address] Care Team Providers Care Music Librarian Name Role Phone Mariella Ramon MD Primary Care Provider [phone] Reason for Visit * Reason Onset Date Comments Other 03/12/2022 Encounter Details Date Type Department Care Team (Late st Contact Info) Description 03/12/2022 Telephone [facility] Infectious Disease - [address] [id number] Jerry Sams, DO [address] [facility], Level [address] [place] [address] Other Social History Tobacco Use [...] encounter Miscellaneous Notes * Telephone Encounter - Irish Barrera RN - 03/12/2022 1050 EDT Re-printed original order and faxed it to Radiology at [facility] @ [phone]. 10:50 am Lino had already heard from scheduling in radiology. * Telephone Encounter - Nona Coffman MA - 03/12/2022 1010 EDT Received call from patient who states [facility] does not have US order and patient is unable to scheduleappointment for procedure. Patient would like a call back to discuss. documented in this encounter Plan of Treatment Not on file documented as of this encounter Visit Diagnoses Not on filedocumented in this encounter Care Teams Music Librarian Relationship Specialty Start Date End Date Mariella Ramon MD [address] [place] [address] PCP - General Family Medicine - Primary Care 02/23/22 documented as of this encounter
--- OUTSIDE RECORDS SUMMARY | 2024-08-20 14:29 | XMS_ITS | Encounter Summary ---
Author Organization [facility] [place] [address] Care Team Providers Care Borematic Machine Operator Name Role Phone Mariella Ramon MD Primary Care Provider [phone] Encounter Details Date Type Department Care Team (Late st Contact Info) Description 02/06/2022 Ancillary Procedure Radiology Library at [facility] N[place]Y Brock [id number] Mariella Ramon MD [address] [place], [place] [id number] Social History Tobacco Use Types Packs/Day Years [...] Diagnosis Comments FILM LIBRARY STORAGE ONLY MR SPINE Routine 02/06/2022 12:00 AM EDT documented in this encounter Results * Film Library- Storage Only MR Spine (02/06/2022 12:00 AM EDT) Narrative PING - 02/16/2022 6:07 PM EDT This exam is auto-finalizing. It's purpose is for storage only. Mariella Ramon MD G FILM LIBRARY ORD ERABLES [facility] [place] documented in this encounter Visit Diagnoses Not on filedocumented in this encounter Care Teams Borematic Machine Operator Relationship Specialty Start Date End Date Mariella Ramon MD [address] [place] [address] PCP - General Family Medicine 06/01/19 documented as of this encounter
--- OUTSIDE RECORDS SUMMARY | 2024-08-20 14:29 | XMS_ITS | Encounter Summary ---
Author Organization [facility] Address [address] [place] [address] Care Team Providers Care Speech Pathology Assistant Name Role Phone Unknown, Provider Primary Care Provider [phone] Mariella Ramon MD Primary Care Provider [phone] Encounter Details Date Type Department Care Team (Late st Contact Info) Description 02/06/2022 Lab Requisition [facility] Pathology & Laboratory Medicine - [facility] [address] [place] [address] Outr Resulting Lab, Provider Social History Tobacco [...] Procedure Name Priority Date/Time Associated Diagnosis Comments LYME AB Routine 02/06/2022 8:25 EDT documented in this encounter Results * LYME AB (02/06/2022 8:25 EDT) Lyme Ab Negative Negative 02/09/2022 10:43 EDT [facility] Blood VENOUS BLOOD / Unknown 02/06/2022 8:25 EDT 02/06/2022 16:51 EDT Provider Outr Resulting Lab IMMUNOLOGY A ND SEROLOGY ORDERABLES [facility] [address] [place] [address] documented in this encounter Visit Diagnoses Not on filedocumented in this encounter Care Teams Speech Pathology Assistant Relationship Specialty Start Date End Date Unknown, Provider, PCP - General 02/20/22 02/22/22 Mariella Ramon MD [address] [place] [address] PCP - General Family Medicine - Primary Care 02/23/22 documented as of this encounter
--- OUTSIDE RECORDS SUMMARY | 2024-08-20 14:29 | XMS_ITS | Encounter Summary ---
Author Organization [facility] Address [address] [place] [address] Care Team Providers Care Submarine Element Coordinator Name Role Phone Mariella Ramon MD Primary Care Provider Reason for Referral * Cardiology (STAT) - Authorized Specialty Diagnoses / Procedures Referred By Contac t Referred To Contact Diagnoses Bacteremia due to Staphylococcus aureus Procedures TRANSESOPHAGEAL ECHO (TETO) MD ECHO HEART XTHORACIC,COMPLETE W DOPPLER Lizett Marmolejo MD [address] [place] [address] [facility] Referral ID Status Reason Start Date Expiration Date V isits Requested Visits Authorized [id number] Authorized 02/23/2022 10/31/2023 1 1 Encounter Details Date Type Department Care Team (Latest Contact Info) Description 02/23/2022 Transcribe Orders [facility] Cardiology - [address] [place] [address] Lizett Marmolejo MD [address] [place] [address] Bacteremia due to Staphylococcus aureus (Primary Dx) Social History Tobacco Use Types [...] of this encounter Plan of Treatment Scheduled Orders Name Type Priority Associated Diagnoses Orde r Schedule TRANSESOPHAGEAL ECHO (TETO) Echocardiography STAT Bacteremia due to Staphylococcus aureus Expected: 02/23/2022, Expires: 02/24/2024 documented as of this encounter Visit Diagnoses Diagnosis Bacteremia due to Staphylococcus aureus- Primary Bacteremia documented in this encounter Care Teams Submarine Element Coordinator Relationship Specialty Start Date End Date Mariella Ramon MD [address] [place] [address] PCP - General Family Medicine - Primary Care 02/23/22 documented as of this encounter
--- OUTSIDE RECORDS SUMMARY | 2024-08-20 14:29 | XMS_ITS | Encounter Summary ---
Author Organization [facility] Address [address] [place] [address] Care Team Providers Care Category Analyst Name Role Phone Jerry Ibrahim MD Primary Care Provider [phone] Unknown, Provider Primary Care Provider [phone] Mariella Ramon MD Primary Care Provider [phone] Encounter Details Date Type Department Care Team (Late st Contact Info) Description 01/09/2020 Lab Requisition [facility] Pathology & Laboratory Medicine - [facility] [address] [place] [address] Andi Farrell MD [address] [place] [address] [place] [address] Encounter for other general examination Social History Tobacco Use Types Packs/Day Years [...] Date/Time Associated Diagnosis Comments SURGICAL PATHOLOGY Today 01/08/2020 15 :35 EDT Encounter for other general examination documented in this encounter Results * SURGICAL PATHOLOGY (01/08/2020 15:35 EDT) Final Diagnosis A. SOFT TISSUE OF FOOT, RIGHT ARCH, MASS, EXCISION: - Nodular plantar fibromatosis. See comment. [facility] Diagnosis Comment Congo red fails to highlight evidence of amyloid deposition. Atg Architect slides of this case were reviewed at the intradepartmental consultation conference. 01/18/2020 9:47 [facility] Attestation There was significant resident/fellow involvement in the diagnostic evaluation of this case. By the signature below, the attending physician certifies that they have personally conducted a gross and/or microscopic examination of the described specimens and rendered or confirmed the above diagnosis. 01/18/2020 9:47 [facility] at 0947 Clinical History Mass arch right foot 01/18/2020 9:47 [facility] Gross Description Received in formalin labelled with proper patient identification (initials L, L) and mass right foot arch is a piece of fibrofatty tissue that measures 2.5 x 1.5 x 0.8 cm. The outer surface is glistening castro white with a scant amount of attached adipose. There is a tendon running along 1 aspect of the specimen. The outside surface is inked blue. The specimen is serially sectioned revealing a solid castro-white cut surface. The specimen is entirely submitted in A1-A2. Sudarshan Goins MD 01/09/2020 14:51 01/18/2020 9:47 EDT [facility] Resident/Fell ow: Sudarshan Goins MD 01/18/2020 9:47 T [facility] Scanned Images 01/18/2020 9:47 [facility] Tissue SOFT TISSUE / Unknown 01/08/2020 15:35 EDT 01/09/2020 9:47 EDT Andi Farrell MD PATHOLOGY ORDERABLES [facility] [address] [place] [address] documented in this encounter Visit Diagnoses Diagnosis Encounter for other general examination documented in this encounter Care Teams Category Analyst Relationship Specialty Start Date End Date Jerry Ibrahim MD [address] [place] [address] PCP - General 11/01/19 02/11/20 Unknown, Provider, PCP - General 02/20/22 02/22/22 Mariella Ramon MD [address] [place] [address] PCP - General Family Medicine - Primary Care 02/23/22 documented as of this encounter
--- OUTSIDE RECORDS SUMMARY | 2024-08-20 14:29 | XMS_ITS | Encounter Summary ---
Author Organization [facility] [place] [address] Care Team Providers Care Watch Repairer Name Role Phone Mariella Ramon MD Primary Care Provider [phone] Encounter Details Date Type Department Care Team (Late st Contact Info) Description 02/16/2022 6:10 PM EDT Ancillary Procedure Radiology Library at [facility] [place] [phone] Mariella Ramon MD [address] [place], [place] [id number] Social History Tobacco Use Types Packs/Day Years [...] FILM LIBRARY STORAGE ONLY ULTRASOUND STUDY Routine 02/16/2022 6:08 PM EDT documented in this encounter Results * Film Library- Storage Only Ultrasound Study (02/16/2022 6:08 PM EDT) Narrative PING - 02/16/2022 6:08 PM EDT This exam is auto-finalizing. It's purpose is for storage only. Mariella Ramon MD G FILM LIBRARY ORD ERABLES [place], [place] documented in this encounter Visit Diagnoses Not on filedocumented in this encounter Care Teams Watch Repairer Relationship Specialty Start Date End Date Mariella Ramon MD [address] [place] [address] PCP - General Family Medicine 06/01/19 documented as of this encounter
--- OUTSIDE RECORDS SUMMARY | 2024-08-20 14:29 | XMS_ITS | Encounter Summary ---
Author Organization [facility] Address [address] [place] [address] Care Team Providers Care Special Education Teachers Name Role Phone Unknown, Provider Primary Care Provider Mariella Ramon MD Primary Care Provider [phone] Encounter Details Date Type Department Care Team (Late st Contact Info) Description 02/17/2022 Lab Requisition [facility] Pathology & Laboratory Medicine - [address] [address] Outr Resulting Lab, Provider Social History Tobacco [...] Procedure Name Priority Date/Time Associated Diagnosis Comments CHRONIC HEPATITIS PROFILE, UNKNOWN TYPE Routine 02/17/2022 6:10 EDT documented in this encounter Results * CHRONIC HEPATITIS PROFILE, UNKNOWN TYPE (02/17/2022 6:10 EDT) Hep B Surface Ag Negative Negative 02/19/20 10:[address] [facility] Hep B Surface Ab, Quantitative 4.4 See Note mIU/mL 02/18/2022 10:[address] [facility] Comment: Reference Range for Hep B Surface Ab, Quant: Positive: >= 10.0 mIU/mL Negative: ??< 10.0 mIU/mL Patient is presumed to not be immune to infection with Hepatitis B Virus. Hep B Surface Ab, Qualitative Negative See Note 02/18/2022 10:[address] [facility] Comment: Reference Range for Hep B Surface Ab, Qual: Unvaccinated: ??Negative Vaccinated: ??Positive Hepatitis B Core Ab, Total Negative Negative 02/18/2022 10:[address] [facility] Hep C Antibody Negative Negative 02/18/2022 10:[address] [facility] Blood VENOUS BLOOD / Unknown 02/17/2022 6:10 EDT 02/17/2022 17:43 EDT Provider Outr Resulting Lab CHEMISTRY & BLOOD GAS ORDERABLES Performing Organization Address City/State/[facility] Co de Phone Number [facility] [address] [place] [address] documented in this encounter Visit Diagnoses Not on filedocumented in this encounter Care Teams Special Education Teachers Relationship Specialty Start Date End Date Unknown, Provider, PCP - General 02/20/22 02/22/22 Mariella Ramon MD [address] [place] [address] PCP - General Family Medicine - Primary Care 02/23/22 documented as of this encounter
--- OUTSIDE RECORDS SUMMARY | 2024-08-20 14:29 | XMS_ITS | Encounter Summary ---
Author Organization [facility] Address [address] [place] [address] Care Team Providers Care Educational Director Name Role Phone Unavailable Primary Care Provider Unavailabl e Reason for Visit * Cardiology (Routine/Next Available) - New Request Specialty Diagnoses / Procedures Referred By Salena shah Referred To Contact Procedures OUTSIDE IMAGES FOR ARCHIVE - ECHO Imaging, External Referral ID Status Reason Start Date Expiration Date V isits Requested Visits Authorized [id number] New Request 02/18/2022 1 1 Encounter Details Date Type Department Care Team (Latest Contact Info) Description 02/09/2022 - 02/09/2022 23:59 EDT Hospital Encounter [facility] Radiology - Main [place] [address] [place] [address] Discharge Disposition: Home or Self Care Social [...] on file documented as of this encounter Discharge Disposition Disposition Code Departure Means Destination Home or Self Care documented in this encounter Plan of Treatment Not on file documented as of this encounter Procedures Procedure Name Priority Date/Time Associated Diagnosis Comments OUTSIDE IMAGES FOR ARCHIVE - ECHO Routine 02/18/2022 21:47 EDT documented in this encounter Results * OUTSIDE IMAGES FOR ARCHIVE - ECHO (02/18/2022 21:47 EDT) Narrative [facility] - 02/18/2022 21:47 EDT This is a non-reportable exam. External Imaging CARDIAC ECHO ORDERAB L[facility] documented in this encounter Visit Diagnoses Not on filedocumented in this encounter
--- OUTSIDE RECORDS SUMMARY | 2024-08-20 14:29 | XMS_ITS | Encounter Summary ---
[place] [address] Care Team Providers Care Sewer Pipe Cleaner Name Role Phone Mariella Ramon MD Primary Care Provider [phone] Encounter Details Date Type Department Care Team (Late st Contact Info) Description 02/16/2022 Orders [place] [address] Calvin Randolph MD [facility] [place] [address] Abscess of thigh Social History Tobacco Use Types Packs/Day Years Used Date Smoking Tobacco: Never Assessed Sex and Gender Information Value Date Recorded Sex Assigned at Male 02/26/2022 5:17 PM EDT Gender Identity Not on file Sexual Orientation Not on file documented as of this encounter Progress Notes * Davi Bower MD - 02/16/2022 6:29 PM EDT Interventional Radiology - Brief Consult Note Patient Name: Lino Ruiz : [id number] MR#: [id number] Greenberg at [facility] regarding the left thigh fluid collection being too small to place a drain, we discussed the possibility of aspiration. However given the recent right thigh drain placement and cultures we agree that that would be unnecessary. Dr. Gallardo and I have notreceived the culture results as of this a.m., I read the culture and susceptibility results from the right thigh drain to him over the phone, and then faxed the report to him as well. He and I agreedthat there would be no need to proceed with a new aspiration on the left side given the right thighfluid culture results are concordant with the blood cultures that he had collected at their hospital. If the clinical picture was to change and a focal, drainable abscess was to recur we would be happyto help in the future. Thank you for allowing us to participate in the care of this patient. Davi Bower MD Interventional & Diagnostic Radiology IR Team Pager: [phone] 02/17/2022 documented in this encounter H&P Notes * Calvin Randolph MD - 02/16/2022 6:29 PM EDT INTERVENTIONAL RADIOLOGY FOCUSED H&P and PRE-PROCEDURE NOTE: PCP: Mariella Ramon MD Referring Provider: Dr. Hanley at [facility]. Planned Procedure: Planned procedure: Left thigh drain placement Procedure Indication: MSSA bacteremia, left thigh collection Interventional Radiology Service contacted by Dr. Greenberg at 600 pm on 02/16/2022 regarding the procedure request below. There are no answered order specific questions. Presenting Diagnosis/ Complaint: Lino Ruiz is a 51 y.o. male with Per chart review past medical history of type 2 diabetes, sleep apnea, recent admission to [facility] with MSSA bacteremia and UTI. MRI 02/09 showed bilateral thigh collections. Ultrasound 02/10 showed the right collection to be drainable but not the left. IR placed right-sided thigh drain on 02/12/2022. Patient is now readmitted at [facility] with increased pain, erythema, and tenderness of the left thigh. IR was contacted by about aspirating/draining the left thigh. As there has been no imaging since 02/10/2022 and the last ultrasound from 02/10 did not show a drainable collection in the left thigh it was recommended that he get a CT or ultrasound. If collection is found IR will consider here and back for drainage. Patient is reportedly hemodynamically stable. Platelets reportedly 273. Assessment: 51 y.o. male Plan: CT vs US tonight-images being forwarded to PACS NPO midnight Faxing order, labs, and HandP. He will call back after 8 am to discuss findings and plan Planned procedure: Left thigh drain placement Labs to be performed day of procedure: No labs Sedation: Moderate (Conscious sedation) Prophylactic antibiotic : None Contrast: No contrast Additional medications for procedure: Lidocaine Planned access site: to be determined Position: Supine Consent: Pending Medications to discontinue (and days held): None 02/16/2022 Abad Agustín PGY-6 Past Medical/Surgical History: There is no problem list on file for this patient. No past medical history on file. Past Surgical History: Procedure Laterality Date ??? IR ALL DRAINAGE PROCEDURES 02/12/2022 IR All Drainage Procedures 02/12/2022 Wilfrido Rojo MD [facility] INTERVENTIONL RAD Medications: Current Outpatient [...] file. Pertinent ROS: as per HPI Labs: being faxed Platelets reported to be 273 Imaging: being sent Physical Exam: Pending (to be performed in angio the day of procedure) ASA: Pending (to be assessed in angio the day of procedure) Mallampati Class: Pending (to be assessed in angio the day of procedure) documented in this encounter Plan of Treatment Not on file documented as of this encounter Visit Diagnoses Diagnosis Abscess of thigh Cellulitis and abscess of leg, except foot documented in this encounter Care Teams Sewer Pipe Cleaner Relationship Specialty Start Date End Date Mariella Ramon MD [address] [place] [address] PCP - General Family Medicine 06/01/19 documented as of this encounter
--- OUTSIDE RECORDS SUMMARY | 2024-08-20 14:29 | XMS_ITS | Encounter Summary ---
Author Organization [facility] Address [address] [place] [address] Care Team Providers Care Coin Box Inspector Name Role Phone Unknown, Provider Primary Care Provider Mariella Ramon MD Primary Care Provider [phone] Encounter Details Date Type Department Care Team (Late st Contact Info) Description 02/17/2022 Lab Requisition [facility] Pathology & Laboratory Medicine - [address] [address] Outr Resulting Lab, Provider Social History Tobacco [...] Procedure Name Priority Date/Time Associated Diagnosis Comments C3 COMPLEMENT Routine 02/17/2022 6:10 EDT documented in this encounter Results * (ABNORMAL) C3 COMPLEMENT (02/17/2022 6:10 EDT) C3 Complement 187(H) 81 - 157 mg/dL 02/18/2022 8:49 EDT [facility] Blood VENOUS BLOOD / Unknown 02/17/2022 6:10 EDT 02/17/2022 17:43 EDT Provider Outr Resulting Lab CHEMISTRY & BLOOD GAS ORDERABLES [facility] [address] [place] [address] documented in this encounter Visit Diagnoses Not on filedocumented in this encounter Care Teams Coin Box Inspector Relationship Specialty Start Date End Date Unknown, Provider, PCP - General 02/20/22 02/22/22 Mariella Ramon MD [address] [place] [address] PCP - General Family Medicine - Primary Care 02/23/22 documented as of this encounter
--- OUTSIDE RECORDS SUMMARY | 2024-08-20 14:29 | XMS_ITS | Encounter Summary ---
Author Organization [facility] Address [address] [place] [address] Care Team Providers Care Rfid Manager Name Role Phone Mariella Ramon MD Primary Care Provider [phone] Reason for Visit * Reason Comments Follow-up Encounter Details Date Type Department Care Team (Late st Contact Info) Description 03/20/2022 14:00 EDT Telemedicine [facility] Infectious Disease - [address] [phone] Jerry Sams, DO [address] [facility], [address] [place] [address] MSSA bacteremia (Primary Dx) Social [...] encounter Progress Notes * Jerry Sams, - 03/20/2022 1400 EDT Images from the original note were not included. I spent a total of 30 minutes on the date of this encounter meeting with the patient and reviewing documentation/coordinating care as described in the above note. No procedures were performed at the time of the visit. Division of Infectious Disease Follow up/Progress Note Telephone visit 03/20/22 14:05 The concept of ???Telemedicine?? has been described [...] care as described in the progress note. INFECTIOUS DISEASE CLINIC VISIT Patient name: Lino Ruiz Today's date: 03/19/2022 Chief Complaint: follow-up care Current antibiotics: Ancef 12 February-present Prior antibiotics Vancomycin/ceftriaxone 05 February-08 February Oxacillin 09 February-12 February HPI: Mr. Ruiz is a 52 y.o. male with a history of type 2 diabetes, sleep apnea, prolonged admission at [facility] for MSSA bacteremia that most likely resulted from diabetic foot ulcer and led to bilateral thigh abscesses. Please see initial ID note 26 February for fulldetails. Patient is on a 6-week course of IV Ancef which he will reach on 22 March. Since her last evaluation last month, patient was seen at [facility] 0 to March who performed drainage of left thigh abscess. Notes indicate he had a percutaneous aspiration of 2 small intramuscular collections of theleft thigh yielding scant serosanguineous fluid. No drainage catheter was left in place. The culture showed no growth. Today, pt feels great. He's become more mobile. No fevers, chills, night sweats. No diarrhea. PICC working well. Thigh pain improving considerably. Wants to go back to work. Review of Systems: 10-point review of systems is negative except as noted in the HPI. Past Medical History: No past medical history on file. Diabetes HLD Sleep apnea Past Surgical History: No past surgical history on file. Left Achilles tendon repair Right thigh IR guided drainage January 2022 Left thigh IR guided drainage march 2022 Current Outpatient Medications Medication Sig ??? ALBUTEROL [...] 500 mg by mouth 2 times daily. Allergies Allergen Reactions ??? Lisinopril Social History Socioeconomic History ??? Marital status: [...] infection or immunocompromised state. Physical Exam General: NAD, very pleasant, patient was on the phone with his as well. Microbiology 05 February urine cultures MSSA 05 February blood cultures MSSA ([facility]) susceptible to Cipro, gentamicin, daptomycin, erythromycin, oxacillin, vancomycin 05 February blood cultures no growth 07 February blood cultures MSSA ( [facility] ) 08 February blood cultures no growth 12 February right thigh abscess MSSA ([facility]) 02 March left thigh fluid collection no growth Radiology: See official report below 02 march IR report from [facility] 1. The anterior left thigh collection appeared smaller in size compared to the prior ultrasound dated 02/20/2022. 2. Percutaneous aspiration of two small intramuscular collections in the left thigh (one anterior lateral lower thigh and one lateral proximal thigh), yielding scant volume of serosanguinous fluid. No drainage catheter was left in place. 16 March bilateral lower extremity thigh ultrasound Left thigh fluid collection decreased in size measuring 3.9 x 0.3 x 1.4 cm (was 4 x 0.7 x 2.1 cm.) Right thigh fluid collection 2.0 x 0.3 x 1.3 cm Assessment 1. High-grade MSSA bacteremia that most likely stemmed from a diabetic foot ulcer. Plan is 6 weeks of IV Ancef which will end 22 March. Surface echo at outside facility [...] negative, drain never left in. Follow-up ultrasound this week showing residual fluid collections bilaterally. Sterility unclear. We had a long discussion over the phone with patient and hiswife today. He has completed his 6-week course of IV Ancef for the high-grade bacteremia and deep thigh abscesses. He is tolerating the antibiotics very well and feels very comfortable switching to p.o. Keflex as we continue to monitor the size of these abscesses. Patient knows to contact me if he starts to get side effects from the Keflex and we will reconsider the risks and benefits of prolonging his antibiotics. 3. Diabetes, pt sees PCM Wednesday. Patient voiced understanding that we suspect the superficial diabetic ulcer on his foot led to transient, high-grade MSSA bacteremia. Patient understands he needs to do what he can to prevent future foot ulcers. 4. Sleep apnea 5. HLD Plan: 1. Proceed with plan to stop IV Ancef on schedule 22 March. 2. Due to residual fluid collections seen on ultrasound and bilateral thigh, and the concern that there could be residual infection, would convert to Keflex 500 mg p.o. 4 times daily. Patient given 2-month supply. Prescription phoned into [facility] in [facility]. 3. Repeat bilateral thigh ultrasound 5-6 weeks. 4. Repeat Zoom visit/phone call visit with me in about 6-7 weeks to review the results of the ultrasound. 5. We will fax my note to primary care provider so they can pull PICC line when he sees her on Wednesday. Dr Ramon [phone] It has been a pleasure seeing Mr. Ruiz in clinic today. Jerry Sams DO Pager [phone] Infectious Diseases documented in this encounter Plan of Treatment Not on file documented as of this encounter Visit Diagnoses Diagnosis MSSA bacteremia- Primary documented in this encounter Care Teams Rfid Manager Relationship Specialty Start Date End Date Mariella Ramon MD [address] [place] [address] PCP - General Family Medicine - Primary Care 02/23/22 documented as of this encounter
--- OUTSIDE RECORDS SUMMARY | 2024-08-20 14:29 | XMS_ITS | Encounter Summary ---
[place] [address] Care Team Providers Care Microsoft Bi Developer Name Role Phone Mariella Ramon MD Primary Care Provider [phone] Reason for Referral * Diagnostic Test (Emergency) - Closed Specialty Diagnoses / Procedures Referred By Contac t Referred To Contact Radiology Diagnoses Abscess of left thigh Procedures IR All Drainage Procedures Jasson Greenberg MD [address] [address] [place] [address] Referral ID Status Reason Start Date Expiration Date V isits Requested Visits Authorized [id number] Closed Specialty Service Requested 03/02/2022 10/31/2022 1 1 Reason for Visit * Diagnostic Test (Emergency) - Closed Specialty Diagnoses / Procedures Referred By Contac t Referred To Contact Radiology Diagnoses Abscess of left thigh Procedures IR All Drainage Procedures Jasson Greenberg MD [address] [place] [address] [place] [address] Referral ID Status Reason Start Date Expiration Date V isits Requested Visits Authorized [id number] Closed Specialty Service Requested 03/02/2022 10/31/2022 1 1 Encounter Details Date Type Department Care Team (Late st Contact Info) Description 03/02/2022 1:01 PM EDT - 03/02/2022 11:59 PM EDT Hospital Encounter Radiology at [facility] [place] [address] [facility] [place] [address] Abscess of left thigh Discharge Disposition: Home Social History Tobacco Use [...] this encounter Discharge Instructions * Discharge Instructions* Layne Bernardo RN - 03/02/2022 2:25 PM EDT Discharge Instructions For Your Puncture Site Activity and Diet: Go Home and rest quietly for the remainder of the day. You may resume your normal activities tomorrow. Resume your usual diet after the procedure. Bandage: There is a sterile dressing over the puncture site consisting of small gauze with a clear dressing (Tegaderm). This dressing should be left in place for 24 hours. If the clear dressing becomes loose you should place tape over the edges to secure it in place. Bathing: Do not take a shower until 24 hours after your procedure; after this time you may shower with the dressing in place, then remove it and pat your skin dry. You may use a bandaid to cover the site if there is any drainage. When to call your healthcare provider: If you notice bleeding or a bulge from the puncture site, you should apply firm pressure over the site for 10-15 minutes, keeping the site covered and call your doctor. If you are still bleeding after 10-15 minutes, reapply pressure, and have someone drive you to the nearest Emergency Department, or call 911. If you develop pain, redness, drainage or swelling at or around the puncture site. If you develop fever equal to or greater than 101F and/or shaking chills. When to call the Interventional Radiology Department: Please call with any questions or concerns. If it is during regular office hours, please call [phone]. If it is after regular office hours, or on weekends or holidays, please call [phone] and ask to speak to the Registered Mail Clerk heritage consultant for Interventional Radiology. You have received medication during your procedure to help lessen anxiety and keep you comfortable.These medications affect judgement and reaction time. We [...] occurs, please contact your M. D. Revised 11/15/15 documented in this encounter Medications at Time of Discharge Medication Sig Dispensed Refills Start Date End Date CIS Free Text Med - Albuterol 12/14/2008 hydrochlorothiazide (HYDRODIURIL) 25 mg tablet 12/14/2008 metoprolol tartrate (LOPRESSOR) 50 mg tablet 12/14/2008 sitaGLIPtin-metFORMIN (JANUMET) 50-1,000 mg per tablet 1 Tablet(s), PO, Twice daily 12/14/2008 documented as of this encounter Progress Notes * Nabila Paul RN - 03/02/2022 3:45 PM EDT Pt d/c'd home with selfcare. AVS reviewed. All questions and concerns addressed. Pt is stable at this time. Dressings are c/d/i. Pt states his pain is tolerable for him at 6/10. Picc line flushed without difficult. Pt left with in wheelchair. * Layne Bernardo RN - 02/27/2022 8:01 AM EDT ANGIO NURSING DATABASE Name: LUDY RUIZ Date of : 1970 AGE: 51 y.o. [address]: [address] [place] [id number] (home) [phone] (work) Mobile: Telephone Information: Referring Provider: Jasson Greenberg REASON FOR VISIT: Order Questions Answers Where will study be performed? [facility] Radiology [120] Is the patient on anticoagulant / antiplatelet therapy ? No Reason for exam and clinical history: Abscess of left thigh Plan: Planned procedure: Left thigh drain placement Labs to be performed day of procedure: No labs Sedation: Moderate (Conscious sedation) Prophylactic antibiotic : None Contrast: No contrast Additional medications for procedure: Lidocaine Planned access site: to be determined Position: Supine Consent: Pending Medications to discontinue (and days held): None ?? No Known Allergies Pertinent PMH: There is no problem list on file for this patient. Pertinent PSH: Past Surgical History: Procedure Laterality Date ??? IR ALL DRAINAGE PROCEDURES 02/12/2022 IR All Drainage Procedures 02/12/2022 Wilfrido Rojo MD [facility] INTERVENTIONL RAD Date/Procedure Meds given/comments 03/02/22 left thigh abscess aspiration x 2 Fentanyl 200 mcg pt did well 1410 to procedure room 2 via stretcher. Onto table supine. All monitors, O2, safety strap in place.Meds per protocol. Laboratory Results: documented in this encounter H&P Notes * Jerry Cruz MD - 03/02/2022 2:01 PM EDT INTERVENTIONAL RADIOLOGY FOCUSED H&P: Procedure: Left thigh aspiration x2 The patient's history and physical exam have been reviewed and completed. There has been no interval change from that of the pre-operative history and physical exam done within the last 30 days. The planned procedure (and sedation plan if appropriate) , its benefits and risks, and alternativeswere discussed with the patient. The patient consented to the procedure. PRE-SEDATION ASSESSMENT: Sedation Plan: minimal (single agent only) Confirm NPO status: Yes History of anesthetic complications: No Current medications reviewed: Yes Allergies reviewed: Yes Code Status: Attempt Cardiopulmonary Resuscitation (Full Code) Source Note - Davi Bower MD - 02/26/2022 1:27 PM EDT Images from the original note were not included. INTERVENTIONAL RADIOLOGY FOCUSED H&P and PRE-PROCEDURE NOTE: PCP: Mariella Ramon MD Referring Provider: No ref. provider found Planned Procedure: Procedure Indication: Recurrent thigh soft tissue abscesses Interventional Radiology Service contacted by Jerry Sams MD at [facility] Infectious Disease clinic regarding the procedure request below. There are no answered order specific questions. Presenting Diagnosis/ Complaint: Ludy Ruiz is a 51 y.o. male with past medical history of type2 diabetes, sleep apnea, recent admission to [facility] with MSSA bacteremia and UTI. MRI 02/09 showed bilateral thigh collections. Ultrasound 02/10 showed the right collection to be drainable but not the left. IR placed right-sided thigh drain on 02/12/2022. Patient is was readmitted at [facility] with increased pain, erythema, and tenderness of the left thigh. IR was contacted by about aspirating/draining the left thigh, on 02/[address] showed the collection was too small to drain, which was communicated to [facility] team as documented in a consult note written by myself. On day of discharge (02/20/22) the collection had increased in size on ultrasound and we agreed to complete an outpatient drain placement once we received a fax with an order and recent H&P. This is documented in Paul Ennis's consult note dated 02/20/22. Interval history: The order from [facility] was received on 02/25/22. Today, 02/26 we received a call from Per Sams MD from [facility] Infectious Disease about mr Ruiz who is currently in clinic and presenting with increasing size of the left thigh collection. Per Dr. Sams his labs today show a normal WBC, and additionally he has had no fevers. He is continuing on antibiotic therapy with ID at [facility], and they are requesting drain placement. Past Medical/Surgical History: There is no problem list on file for this patient. No past medical history on file. Past Surgical History: Procedure Laterality Date ??? IR ALL DRAINAGE PROCEDURES 02/12/2022 IR All Drainage Procedures 02/12/2022 Wilfrido Rojo MD [facility] INTERVENTIONL RAD Medications: Current Outpatient Medications on [...] as per HPI Labs: normal WBC at [facility] ID clinic per Dr. Sams Imaging: OSH Ultrasound dated 02/20/22 Physical Exam: Pending (to be performed in angio the day of procedure) ASA: Pending (to be assessed in angio the day of procedure) Mallampati Class: Pending (to be assessed in angio the day of procedure) Assessment: 51 y.o. male with bilateral thigh soft tissue collections presenting to [facility] for drain placement in the setting [...] Dr. Baker 02/26/2022 documented in this encounter Miscellaneous Notes * Brief Op Note - Jerry Cruz MD - 03/02/2022 3:05 PM EDT INTERVENTIONAL RADIOLOGY BRIEF PROCEDURE NOTE Patient Name: Ludy Ruiz : 1970 Case Date: 03/02/2022 Operators: Attending: Nayla Resident/Fellow/Student: Nancy Post-operative diagnosis/Indication: MSSA bacteremia Name of Procedure Performed: Left thigh aspiration x2 Brief description of the procedure: ?? Targeted U/S of the left thigh ?? U/S-guided aspiration of the left thigh x2 Findings of the procedure: ?? Two small hypo to anechoic collections in left anterior and lateral thigh, needle-guided aspiration performed x2 EBL: <10 mL Specimens: Left thigh aspirate x2 for gram stain and culture Complications: No immediate Plan/Disposition: - To IR/Angio recovery room. May discharge home when nursing criteria is met. FULL PROCEDURE NOTE TO FOLLOW IN IMAGE REPORT documented in this encounter Plan of Treatment Not on file documented as of this encounter Procedures Procedure Name Priority Date/Time Associated Diagnosis Comments IR ALL DRAINAGE PROCEDURES STAT 03/02/2022 2:55 PM EDT Abscess of left thigh ANAEROBIC CULTURE Routine 03/02/2022 2:2 8 PM EDT ANAEROBIC CULTURE Routine 03/02/2022 2:2 8 PM EDT HC GRAM STAIN FOR BACTERIA Routine 03/02/2022 2:28 PM EDT HC GRAM STAIN FOR BACTERIA Routine 03/02/2022 2:28 PM EDT ABSCESS/WOUND ASPIRATE CULTURE Routine 03/02/2022 2:28 PM EDT ABSCESS/WOUND ASPIRATE CULTURE Routine 03/02/2022 2:28 PM EDT documented in this encounter Results * IR All Drainage Procedures (03/02/2022 2:55 PM EDT) Anatomical Region Laterality Modality X-Ray Angiograph y Impressions 03/03/2022 8:52 AM EDT 1. ??The anterior left thigh collection appeared smaller in size compared to the prior ultrasound dated 02/20/2022. 2. ??Percutaneous aspiration of two small intramuscular collections in the left thigh (one anterior lateral lower thigh and one lateral proximal thigh), yielding scant volume of serosanguinous fluid. No drainage catheter was left in place. Plan: 1. ??To IR/angio recovery room. May discharge home when IR nursing criteria is met. 2. ??Follow-up Gram stain/culture from left thigh aspirations. PROCEDURE SUMMARY: - Aspiration of fluid collection x2 under ultrasound guidance - Additional procedure(s): None PROCEDURE DETAILS: Pre-procedure Consent: Informed consent for the procedure including risks, benefits and alternatives was obtained and time-out was performed prior to the procedure. Preparation: The site was prepared and draped using maximal sterile barrier technique including cutaneous antisepsis. Anesthesia/sedation Level of anesthesia/sedation: Minimal sedation (anxiolysis) Anesthesia/sedation administered by: Independent trained observer under attending supervision with continuous monitoring of the patients level of consciousness and physiologic status Total intra-service sedation time (minutes): As documented Fluid collection aspiration The patient was positioned supine. Initial imaging was performed. Local anesthesia was administered. The proximal lateral thigh fluid collection was accessed using an access needle. Position within the fluid collection was confirmed, and fluid aspiration was performed. Next, a similar technique was employed to access the anterior distal thigh fluid collection, and fluid aspiration was performed. All instruments were then removed. - Initial imaging findings: Initial ultrasound demonstrated an approximately 2.2 cm x 0.3 cm (CC by AP) hypoechoic to anechoic collection in the left lateral thigh and a 1.7 x 0.7 cm (TR by AP) hypoechoic collection in the left anterior thigh. These collections corresponded with the locations of the previously CT visualized collections (CT leg 02/16/2022). The anteriorly located collection appeared smaller in size compared to the outside hospital ultrasound performed on 02/20/2022. - Aspiration needle/catheter: 18 ga BSDN needle - Post-aspiration imaging findings: Other- post-aspiration ultrasound demonstrated scattered hyperechoic foci within both collections consistent with air. This confirmed post-aspiration changes within both collections. Contrast Contrast agent: None Contrast volume (mL): N/A Radiation Dose CT dose length product (mGy-cm): N/A Fluoroscopy time (minutes): N/A Reference air kerma (mGy): N/A Kerma area product (Gy-cm2): N/A Additional Details Additional description of procedure: None Equipment details: None Specimens removed: Aspirated fluid was sent for analysis. Estimated blood loss (mL): Less than 10 Standardized report: [email or web address] Attestation Signer name: Thompson Winslow MD I attest that I was present and scrubbed for the entire procedure. I reviewed the stored images and agree with the report as written. Sedation attestation: N/A Preliminary report signed by: Jerry Cruz at 03/02/2022 6:07 PM I have personally reviewed the image(s) and the resident's interpretation and agree with the findings, Thompson Winslow MD at 03/03/2022 8:52 AM Thank you for letting us participate in the care of this patient. ??If you are a health care provider and have any questions regarding this report, please contact the number below. ??For patients who have questions please contact the health intensive care nurse that requested your imaging first. ? Electronically signed by: Thompson Winslow MD, [facility] ([phone]), at 03/03/2022 8:52 AM Narrative 03/03/2022 8:52 AM EDT PROCEDURE: Fluid collection aspiration Procedural Personnel Attending physician(s): Thompson Winslow MD Resident physician(s): Jerry Cruz MD Pre-procedure diagnosis: MSSA bacteremia, multifocal abscesses Post-procedure diagnosis: Same Indication: Pain associated with fluid collection Additional clinical history: None Complications: No immediate complications. Procedure Note Thompson Winslow MD - 03/03/2022 PROCEDURE: Fluid collection aspiration Procedural Personnel Attending physician(s): Thompson Winslow MD Resident physician(s): Jerry Cruz MD Pre-procedure diagnosis: MSSA bacteremia, multifocal abscesses Post-procedure diagnosis: Same Indication: Pain associated with fluid collection Additional clinical history: None Complications: No immediate complications. IMPRESSION 1. The anterior left thigh collection appeared smaller in size comparedto the prior ultrasound dated 02/20/2022. 2. Percutaneous aspiration of two small intramuscular collections in theleft thigh (one anterior lateral lower thigh and one lateral proximal thigh), yielding scant volume of serosanguinous fluid. No drainage catheter wasleft in place. Plan: 1. To IR/angio recovery room. May discharge home when IR nursing criteriais met. 2. Follow-up Gram stain/culture from left thigh aspirations. PROCEDURE SUMMARY: - Aspiration of fluid collection x2 under ultrasound guidance - Additional procedure(s): None PROCEDURE DETAILS: Pre-procedure Consent: Informed consent for the procedure including risks, benefitsand alternatives was obtained and time-out was performed prior to theprocedure. Preparation: The site was prepared and draped using maximal sterilebarrier technique including cutaneous antisepsis. Anesthesia/sedation Level of anesthesia/sedation: Minimal sedation (anxiolysis) Anesthesia/sedation administered by: Independent trained observer under attending supervision with continuous monitoring of the patients levelof consciousness and physiologic status Total intra-service sedation time (minutes): As documented Fluid collection aspiration The patient was positioned supine. Initial imaging was performed. Local anesthesia was administered. The proximal lateral thigh fluid collectionwas accessed using an access needle. Position within the fluid collectionwas confirmed, and fluid aspiration was performed. Next, a similar techniquewas employed to access the anterior distal thigh fluid collection, and fluid aspiration was performed. All instruments were then removed. - Initial imaging findings: Initial ultrasound demonstrated anapproximately 2.2 cm x 0.3 cm (CC by AP) hypoechoic to anechoic collection in the leftlateral thigh and a 1.7 x 0.7 cm (TR by AP) hypoechoic collection in the leftanterior thigh. These collections corresponded with the locations of the previouslyCT visualized collections (CT leg 02/16/2022). The anteriorly locatedcollection appeared smaller in size compared to the outside hospital ultrasoundperformed on 02/20/2022. - Aspiration needle/catheter: 18 ga BSDN needle - Post-aspiration imaging findings: Other- post-aspiration ultrasound demonstrated scattered hyperechoic foci within both collections consistentwith air. This confirmed post-aspiration changes within both collections. Contrast Contrast agent: None Contrast volume (mL): N/A Radiation Dose CT dose length product (mGy-cm): N/A Fluoroscopy time (minutes): N/A Reference air kerma (mGy): N/A Kerma area product (Gy-cm2): N/A Additional Details Additional description of procedure: None Equipment details: None Specimens removed: Aspirated fluid was sent for analysis. Estimated blood loss (mL): Less than 10 Standardized report: [email or web address] Attestation Signer name: Thompson Winslow MD I attest that I was present and scrubbed for the entire procedure. Ireviewed the stored images and agree with the report as written. Sedation attestation: N/A Preliminary report signed by: Jerry Cruz at 03/02/2022 6:07 PM I have personally reviewed the image(s) and the resident's interpretationand agree with the findings, Thompson Winslow MD at 03/03/2022 8:52 AM Thank you for letting us participate in the care of this patient. If youare a health care provider and have any questions regarding this report,please contact the number below. For patients who have questions please contactthe health intensive care nurse that requested your imaging first. Electronically signed by: Thompson Winslow MD, [facility]([phone]), at 03/03/2022 8:52 AM Jasson Greenberg MD IMG IR ORDER NORMA * Anaerobic Culture (03/02/2022 2:28 PM EDT) Anaerobic Culture No anaerobic organisms isolated [facility] Abscess STRUCTURE OF LEFT THIGH / Unknown 03/02/2022 2:28 PM EDT 03/02/2022 3:47 PM EDT Comment:Anterior left thigh Narrative Resulting Agency Comment Spec In Lab Jerry Cruz MD MICROBIOLOGY - GENER AL ORDERABLES Performing Organization Address [facility] [place] [address] * Abscess/Wound Aspirate Culture (03/02/2022 2:28 PM EDT) Abscess/Wound Aspirate Culture No growth [facility] Gram Stain No Neutrophils seen. No microorganisms seen. [facility] Abscess STRUCTURE OF LEFT THIGH / Unknown 03/02/2022 2:28 PM EDT 03/02/2022 3:47 PM EDT Comment:Anterior left thigh Narrative Resulting Agency Comment Spec In Lab Jerry Cruz MD MICROBIOLOGY - GENER AL ORDERABLES Performing Organization Address City/[facility]/ZIP Co de Phone Number [facility], [address] [place] [address] * Anaerobic Culture (03/02/2022 2:28 PM EDT) Anaerobic Culture No anaerobic organisms isolated [facility] Abscess STRUCTURE OF LEFT THIGH / Unknown 03/02/2022 2:28 PM EDT 03/02/2022 3:38 PM EDT Comment:Left lateral thigh Narrative Resulting Agency Comment Spec In Lab Jerry Cruz MD MICROBIOLOGY - GENER AL ORDERABLES Performing Organization Address [facility] Co de Phone Number [facility] [place] [address] * Abscess/Wound Aspirate Culture (03/02/2022 2:28 PM EDT) Abscess/Wound Aspirate Culture No growth [facility] Gram Stain No Neutrophils seen. No microorganisms seen. [facility] Abscess STRUCTURE OF LEFT THIGH / Unknown 03/02/2022 2:28 PM EDT 03/02/2022 3:38 PM EDT Comment:Left lateral thigh Narrative Resulting Agency Comment Spec In Lab Jerry Cruz MD MICROBIOLOGY - GENER AL ORDERABLES Performing Organization Address [facility] [place] [address] documented in this encounter Visit Diagnoses Diagnosis Abscess of left thigh Cellulitis and abscess of leg, except foot documented in this encounter Administered Medications Inactive Administered Medications - up to 3 most recent administrations Medication Order MAR Action Action Date Dose Rate Site fentaNYL (pf) (50 mcg/mL) multi-dose injection 25-50 mcg 25-50 mcg, Intravenous, EVERY 3 MIN PRN, Starting on Wed03/02/22 at 1311, Until Wed03/03/22 at 0433, Pain, per unit protocol, - Start dose [...] direct provider supervision and verbal order., Angio/IR (Intra-Procedure), Routine Given 03/02/2022 2:47 PM EDT 50 mcg Given 03/02/2022 2:40 PM EDT 50 mcg Given 03/02/2022 2:30 PM EDT 50 mcg documented in this encounter Care Teams [employer] Bi Developer Relationship Specialty Start Date End Date Mariella Ramon MD [address] [place] [id number] PCP - General Family Medicine 06/01/19 documented as of this encounter
--- OUTSIDE RECORDS SUMMARY | 2024-08-20 14:29 | XMS_ITS | Encounter Summary ---
Author Organization [facility] [place] [address] Care Team Providers Care Ammonia Print Operator Name Role Phone Mariella Ramon MD Primary Care Provider [phone] Encounter Details Date Type Department Care Team (Late st Contact Info) Description 02/17/2022 Telephone Cardiology at [address] [phone] Marizol Lu PA [facility] [place] [address] Social History Tobacco Use Types Packs/Day Years Used Date Smoking Tobacco: Never Assessed Sex and Gender Information Value Date Recorded Sex Assigned at Male 02/26/2022 5:17 PM EDT Gender Identity Not on file Sexual Orientation Not on file documented as of this encounter Miscellaneous Notes * Telephone Encounter - Marizol Lu PA - 02/17/2022 11:32 AM EDT Images from the original note were not included. 02/17/2022 Lino Ruiz Initial Contact Date: 02/17/2022 Initial contact time: 11:32 AM Referring Provider: Dr. Greenberg Patient Location: [facility] Past Medical History: ?? DM ?? MSSA Bacteremia ?? Bilateral Thigh Abscess, s/p drainage ?? Has been on Abx since January Presenting Symptoms per OSH: 51 Y O M with Diabetes, MSSA Bacteremia, Bilateral Thigh Abscess, s/p drainage, has been on Abx since January, wanting patient to come here and back for a TETO. Was set to go home on Ancef. However, patient may need 6 weeks of antibiotics pending TETO results. We need to talk to the Echo department here. Medicine does not have any beds. Fellow Dr. Malone to speak with Cardiology Echo team here to discuss further. Plan: Dr. Malone to discuss options with Cardiology team. Above recommendations were based on my discussion with Dr. Greenberg; I have not personally interviewed or examined this patient. Advised to call the transfer center back with any changes in the patient condition. ERIC Lorenzo 02/17/2022 Pager [phone] I have not personally reviewed EKGs. 02/17/2022 documented in this encounter Plan of Treatment Not on file documented as of this encounter Visit Diagnoses Not on filedocumented in this encounter Care Teams Ammonia Print Operator Relationship Specialty Start Date End Date Mariella Ramon MD [address] [place] [phone] PCP - General Family Medicine 06/01/19 documented as of this encounter
--- OUTSIDE RECORDS SUMMARY | 2024-08-20 14:29 | XMS_ITS | Encounter Summary ---
[place] [address] Care Team Providers Care Legal Mediator Name Role Phone Jerry Ibrahim MD Primary Care Provider [phone] Encounter Details Date Type Department Care Team (Late st Contact Info) Description 10/21/2013 Orders [place] [address] Edd Simmons MD [facility] [place] [address] Social History Tobacco Use Types Packs/Day Years Used Date Smoking Tobacco: Never Assessed Sex and Gender Information Value Date Recorded Sex Assigned at Male 02/26/2022 5:17 PM EDT Gender Identity Not on file Sexual Orientation Not on file documented as of this encounter Plan of Treatment Pending Results Name Type Priority Associated Diagnoses Date /Time Film Library- Storage only MR Spine Imaging Routine 10/21/2013 2:08 PM EST documented as of this encounter Visit Diagnoses Not on filedocumented in this encounter Care Teams Legal Mediator Relationship Specialty Start Date End Date Jerry Ibrahim MD [address] [place], [place] [phone] PCP - General 09/23/10 05/31/19 documented as of this encounter
[2024-08-20] MEDS: Famotidine 20 MG/2 ML VIAL IVP (14:34)
[2024-08-20] MEDS: diphenhydrAMINE 50 MG/ML VIAL 25 MG IVP (14:34)
[2024-08-20] MEDS: Dexamethasone 10 MG/ML VIAL IVP (14:34)
[2024-08-20] MEDS: Ondansetron 4 MG/2 ML VIAL (14:49)
[2024-08-20 14:50] LABS: Abs Immature Grans 0.02 10^3/uL (0.0-0.06); Absolute Basophil Count 0.07 10^3/uL (0.0-0.2); Absolute Eosinophil Count 0.18 10^3/uL (0.0-0.7); Absolute Lymphocyte Count 2.85 10^3/uL (1.2-3.4); Absolute Monocyte Count 0.58 10^3/uL (0.1-0.8); Absolute Neutrophil Count 3.58 10^3/uL (1.2-6.7); Eosinophils % 2.5 %; HCT 46.5 % (40.0-50.0); HGB 16.7 g/dL (13.5-17.5); Immature Grans % 0.3 %; Lymphocytes % 39.1 %; MCH 31.5 pg (27.0-33.0); MCHC 35.9 % (32.0-36.0); MCV 88 fL (80-95); MPV 10.1 fL (8.0-11.0); Neutrophils % 49.1 %; Platelet Count 210 10^3/uL (130-400); RDW 12.2 % (11.8-14.1); RDW-SD 39.3 fL; WBC 7.28 10^3/uL (4.4-10.8)
[2024-08-20 15:07] LABS: ALT 19 U/L (16-63); AST 17 U/L (15-37); Albumin 3.8 g/dL (3.4-5.0); Alkaline Phosphatase 94 U/L (46-116); Anion Gap 9.2 mmol/L (3-11); BUN 13 mg/dL (7-18); Bilirubin, Total 0.68 mg/dL (0.2-1.0); CO2 29.8 mmol/L (21.0-32.0); CREATININE 1.2 mg/dL (0.70-1.30); Calcium 9.2 mg/dL (8.5-10.1); Chloride 102 mmol/L (98-107); Estimated GFR 72.76 (mL/min/1.73m2); Glucose 324 mg/dL (74-106); Sodium 141 mmol/L (136-145); Total Protein 7.3 g/dL (6.4-8.2)
== END 2024-08-20 18:23 | disposition home or self-care (01) ==
PROVIDERS: Emergency Provider Emergency Medicine; PCP Internal Medicine
DX: T63.441A Toxic effect of venom of bees, accidental (unintentional), initial encounter (principal); T78.2XXA Anaphylactic shock, unspecified, initial encounter; I10 Essential (primary) hypertension; E11.40 Type 2 diabetes mellitus with diabetic neuropathy, unspecified; Z79.4 Long term (current) use of insulin; Z79.84 Long term (current) use of oral hypoglycemic drugs; Z91.030 Bee allergy status
CPT/HCPCS: 36415; 80053; 96372; 96374; 96375; 99284; 85025; 99283; J0171; J1100; J1200; J2405

== ENCOUNTER 2024-09-01 17:17 | Emergency (ER) | payer BC, SELFPAY ==
[2024-09-01 17:22] VITALS: BP 154/102; PULSE 90; RESP 18; TEMP 36.7; O2SAT 98
--- OUTSIDE RECORDS SUMMARY | 2024-09-01 17:26 | XMS_ITS ---
Author Organization Unknown Address [address] [place] [address] [phone] Phone Care Team Providers Care Biochemical Engineer Name Role Phone DAVE Meza Attending [...] Status Co de Code System LISINOPRIL Active 03335 RxNorm Plan of Treatment MRI LOWER EXT W/O CONTRAST 08/06/2023 Encounters Encounter Diagnosis Start Date Code Code Sys tem Chronic ulcer of foot 05/25/2023 [id number] SNOMED -CT Personal Care Team Section Performer Name Performer Role Active Date Inactive Da suresh
--- OUTSIDE RECORDS SUMMARY | 2024-09-01 17:26 | XMS_ITS ---
Author Organization Unknown Address [address] [place] [address] [phone] Phone Care Team Providers Care Statistical Geneticist Name Role Phone DAVE Meza Attending Unavailable [...] Status Co de Code System LISINOPRIL Active 70482 RxNorm Plan of Treatment MRI LOWER EXT W/O CONTRAST 08/06/2023 Encounters Encounter Diagnosis Start Date Code Code Sys tem Chronic ulcer of foot 06/03/2023 [id number] SNOMED -CT Personal Care Team Section Performer Name Performer Role Active Date Inactive Da suresh
--- OUTSIDE RECORDS SUMMARY | 2024-09-01 17:27 | XMS_ITS ---
Author Organization Unknown Address [address] [place] [address] [phone] Phone Care Team Providers Care Grader Marker Name Role Phone DAVE Meza Attending Unavailable [...] Status Co de Code System LISINOPRIL Active 48849 RxNorm Plan of Treatment MRI LOWER EXT W/O CONTRAST 08/06/2023 Encounters Encounter Diagnosis Start Date Code Code Sys tem Chronic ulcer of foot 06/16/2023 904314039 SNOMED -CT Personal Care Team Section Performer Name Performer Role Active Date Inactive Da suresh
--- OUTSIDE RECORDS SUMMARY | 2024-09-01 17:27 | XMS_ITS ---
Author Organization Unknown Address [address] [place] [address] [phone] Phone Care Team Providers Care Abrasive Band Winder Name Role Phone DAVE Meza Attending Unavailable LOLA Herr Primary Unavailable Results HEMOGLOBIN A1C* - Collect Da te/Time: 06/30/2023 15:23 [facility] ID: [id number] [address] [place] [address], [address] LOINC: 4548-4 Test Value Unit Reference Range Code Code System Flag Hgb A1c 9.3 % L=3.8 H=5.7 4548-4 LOINC H MEAN BLOOD GLUCOSE 224 mg/dL 60865-3 LOINC COMPREHENSIVE METABOLIC PANE L (CMP) - Collect Date/Time: 06/30/2023 15:23 [facility] ID: [id number] [address] [place] [address], [address] LOINC: 12523-3 Test Value Unit Reference Range Code Code [...] H=34 2028-9 LOINC ANION GAP 6.0 mmol/L 92890-9 LOINC CALCIUM SERUM 9.0 mg/dL L=8.2 H=10.2 61559-8 LOINC BILIRUBIN TOTAL 0.6 mg/dL L=0.0 H=1.3 1975-2 LOINC ALK. PHOS. 86 U/L L=46 H=116 6768-6 LOINC SGOT (AST) 19 U/L L=15 H=37 1920-8 LOINC SGPT (ALT) 13 U/L L=12 H=78 1742-6 LOINC TOTAL PROTEIN 7.0 gm/dL L=6.0 H=8.0 2885-2 LOINC ALBUMIN 3.5 gm/dL L=3.4 H=5.0 1751-7 LOINC AGE 53 years eGFR (non-Afr.Amer.) 51 mL/min 01880-5 LOINC eGFR (Afr-Panamanian) 62 mL/min 04526-9 LOINC Social History Type Status Start Date [...] Status Co de Code System LISINOPRIL Active 90552 RxNorm Plan of Treatment MRI LOWER EXT W/O CONTRAST 08/06/2023 Encounters Encounter Diagnosis Start Date Code Code Sys tem Non-pressure chronic ulcer o f other part of left foot with fat layer exposed 06/30/2023 SNOMED-CT Personal Care Team Section Performer Name Performer Role Active Date Inactive Da te
--- OUTSIDE RECORDS SUMMARY | 2024-09-01 17:27 | XMS_ITS ---
Author Organization Unknown Address [address] [place] [address] [phone] Phone Care Team Providers Care Surveyor Oil Well Directional Name Role Phone DAVE Meza Attending Unavailable LOLA Herr Primary Unavailable Results XR TOE(S) 2V OR MORE LT* - C ompleted: 06/30/2023 14:40 [facility]: [place], [place] [address] PACS INTEGRATION DEVELOPER REPORT Patient Name: LUDY JARA MRN: Sex: : Age: [id number] M 1970 53 Account: Accession: Admit: StayType: [id number] 06/30/2023 CLINIC Ordered: Order ID: Submitted: Ordering Provider: 06/30/2023 14:28 [id number] [facility] MARTY ACOSTA Completed: Technologist: Resulted: 06/30/2023 14:40 [facility] 06/30/2023 15:15 Study Description: XR TOES [...] Status Co de Code System LISINOPRIL Active 43493 RxNorm Plan of Treatment MRI LOWER EXT W/O CONTRAST 08/06/2023 Encounters Encounter Diagnosis Start Date Code Code Sys tem Chronic ulcer of foot 06/30/2023 906147807 SNOMED -CT Personal Care Team Section Performer Name Performer Role Active Date Inactive Da te
--- OUTSIDE RECORDS SUMMARY | 2024-09-01 17:28 | XMS_ITS ---
Author Organization Unknown Address [address] [place] [address] [phone] Phone Care Team Providers Care Mulcher Operator Name Role Phone DAVE Meza Attending Unavailable LOLAPIERRE FARRAR Nemesio Primary Unavailable Results GRAM STAIN* - Collect Date/T vito: 08/02/2023 15:05 [facility] ID: [id number] [address] [place] [address], [id number] LOINC: 664-3 Test Value Unit Reference Range [...] Status Co de Code System LISINOPRIL Active 29609 RxNorm Plan of Treatment MRI LOWER EXT W/O CONTRAST 08/06/2023 Encounters Encounter Diagnosis Start Date Code Code Sys tem Acute osteomyelitis of ankle and/or foot 08/02/2023 181156586 SNOMED-CT Personal Care Team Section Performer Name Performer Role Active Date Inactive Da te
--- OUTSIDE RECORDS SUMMARY | 2024-09-01 17:28 | XMS_ITS ---
Author Organization Unknown Address [address] [place] [address] [phone] Phone Care Team Providers Care Wax Pourer Name Role Phone DAVE Meza Attending Unavailable LOLA Herr Primary Unavailable Results XR TOE(S) 2V OR MORE LT* - C ompleted: 07/14/2023 15:31 [facility]: [place], [place] [address] PACS WINDOWS SYSTEMS ADMIN REPORT Patient Name: LUDY JARA MRN: Sex: : Age: [id number] M 1970 53 Account: Accession: Admit: StayType: [id number] 07/14/2023 CLINIC Ordered: Order ID: Submitted: Ordering Provider: 07/14/2023 15:01 [id number] [facility] MARTY ACOSTA Completed: Technologist: Resulted: 07/14/2023 [...] Status Co de Code System LISINOPRIL Active 71717 RxNorm Plan of Treatment MRI LOWER EXT W/O CONTRAST 08/06/2023 Encounters Encounter Diagnosis Start Date Code Code Sys tem Chronic ulcer of foot 07/14/2023 795059803 SNOMED -CT Personal Care Team Section Performer Name Performer Role Active Date Inactive Da te
--- OUTSIDE RECORDS SUMMARY | 2024-09-01 17:28 | XMS_ITS ---
Author Organization Unknown Address [address] [place] [address] [phone] Phone Care Team Providers Care Side Seam Machine Operator Name Role Phone DAVE Meza Attending Unavailable LOLA Herr Primary Unavailable Results XR TOE(S) 2V OR MORE LT* - C ompleted: 07/28/2023 15:54 [facility]: [place], [place] [address] PACS POWER PLANT OPERATOR APPRENTICE REPORT Patient Name: LUDY JARA MRN: Sex: : Age: [id number] M 1970 53 Account: Accession: Admit: StayType: [id number] 07/28/2023 CLINIC Ordered: Order ID: Submitted: Ordering Provider: 07/28/2023 14:41 [id number] [facility] MARTY ACOSTA Completed: Technologist: Resulted: 07/28/2023 [...] Status Co de Code System LISINOPRIL Active 55265 RxNorm Plan of Treatment MRI LOWER EXT W/O CONTRAST 08/06/2023 Encounters Encounter Diagnosis Start Date Code Code Sys tem Chronic ulcer of foot 07/28/2023 501553333 SNOMED -CT Personal Care Team Section Performer Name Performer Role Active Date Inactive Da te
--- OUTSIDE RECORDS SUMMARY | 2024-09-01 17:28 | XMS_ITS ---
Author Organization Unknown Address [address] [place] [address] [phone] Phone Care Team Providers Care Esol Teacher Name Role Phone DAVE Meza Attending Unavailable [...] Status Co de Code System LISINOPRIL Active 81825 RxNorm Plan of Treatment MRI LOWER EXT W/O CONTRAST 08/06/2023 Encounters Encounter Diagnosis Start Date Code Code Sys tem Canceled operative procedure 08/03/2023 20374051 SNOMED-CT Personal Care Team Section Performer Name Performer Role Active Date Inactive Da suresh
--- OUTSIDE RECORDS SUMMARY | 2024-09-01 17:29 | XMS_ITS ---
Author Organization Unknown Address [address] [place] [address] [phone] Phone Care Team Providers Care Database Development Project Manager Name Role Phone DAVE Meza Attending [...] Status Co de Code System LISINOPRIL Active 11889 RxNorm Plan of Treatment MRI LOWER EXT W/O CONTRAST 08/06/2023 Encounters Encounter Diagnosis Start Date Code Code Sys tem Acute osteomyelitis of ankle and/or foot 08/09/2023 123706925 SNOMED-CT Personal Care Team Section Performer Name Performer Role Active Date Inactive Da suresh
--- OUTSIDE RECORDS SUMMARY | 2024-09-01 17:29 | XMS_ITS ---
Author Organization Unknown Address [address] [place] [address] [phone] Phone Care Team Providers Care Methods Examiner Name Role Phone DAVE Meza Attending Unavailable LOLA Herr Primary Unavailable Results MR LOWER EXT NOT JOINT LT WO CONTRAST - Completed: 08/06/2023 11:40 LOINC: [facility] [place], [place] [address] PACS STARCH COOKER REPORT Patient Name: LUDY JARA MRN: Sex: : Age: [id number] M 1970 53 Account: Accession: Admit: StayType: [id number] 08/06/2023 E/R Ordered: Order ID: Submitted: Ordering Provider: 08/06/2023 10:54 [id number] [facility] MARTY ACOSTA Completed: Technologist: Resulted: 08/06/2023 [...] Status Co de Code System LISINOPRIL Active 74273 RxNorm Plan of Treatment MRI LOWER EXT W/O CONTRAST 08/06/2023 Encounters Encounter Diagnosis Start Date Code Code Sys tem Osteomyelitis, unspecified 08/06/2023 S NOMED-CT Personal Care Team Section Performer Name Performer Role Active Date Inactive Da te
--- NOTE | 2024-09-01 17:30 | DI.RAD_ITS ---
Exam(s) XR CHEST 2V PA LATERAL EXAM: XR CHEST 2V PA LATERAL CLINICAL HISTORY: Cough, eval PNA. TECHNIQUE: 2D digital imaging was performed. COMPARISON: CR,XR XR PORTABLE CHEST AP from 02/04/2022 FINDINGS: 2 views: Heart size is normal. The mediastinum is not widened. There are no confluent pulmonary infiltrates nor pleural effusions. Density in the right upper lobe region is most probably 1st costochondral junction IMPRESSION: No acute pulmonary findings. DATA REPOSITORY: RADIATION DOSE DELIVERED:
--- OUTSIDE RECORDS SUMMARY | 2024-09-01 17:30 | XMS_ITS ---
Author Organization Unknown Address [address] [place] [address] [phone] Phone Care Team Providers Care Silk Hanger Name Role Phone DAVE Meza Attending Unavailable LOLAPIERRE FARRAR Nemesio Primary Unavailable Results GRAM STAIN* - Collect Date/T vito: 09/15/2023 17:12 [facility] ID: [id number] [address] [place] [address], [phone] LOINC: 664-3 Test Value Unit Reference Range Code Code System Flag SOURCE- Other WBC s moderate PREDOMINANT ORGANISM Gram pos cocci SUSCEPTIBILITY OF BACTERIAL ORGANISM* - Collect Date/Time: 09/15/2023 16:00 [facility] ID: [id number] [address] [place] [address], [phone] LOINC: 56188-3 Test Value Unit Reference Range Code Code [...] Status Co de Code System LISINOPRIL Active 87681 RxNorm Plan of Treatment MRI LOWER EXT W/O CONTRAST 08/06/2023 Encounters Encounter Diagnosis Start Date Code Code Sys tem Abscess of foot 09/15/2023 [id number] SNOMED-CT Personal Care Team Section Performer Name Performer Role Active Date Inactive Da te
--- OUTSIDE RECORDS SUMMARY | 2024-09-01 17:30 | XMS_ITS ---
Author Organization Unknown Address [address] [place] [address] [phone] Phone Care Team Providers Care Cardiovascular Invasive Specialist Name Role Phone DAVE Meza Attending Unavailable RUPERT Montenegro REAL ESTATE OFFICER Unavailable LOLA Herr Primary Unavailable Results CULT ANAEROBIC ([facility]) CULTU RE - Collect Date/Time: 08/12/2023 08:46 [facility] ID: [id number] [address] [place] [address], [phone] LOINC: 635-3 Test Value Unit Reference Range Code Code System Flag Result ACTINOMYCES ODONTOLYTICUS A GRAM STAIN* - Collect Date/T vito: 08/12/2023 08:46 [facility] ID: [id number] [address] [place] [address], [phone] LOINC: 664-3 Test Value Unit Reference Range Code Code System Flag SOURCE- Other WBC s few PREDOMINANT ORGANISM Gram pos cocci GRAM STAIN* - Collect Date/T vito: 08/12/2023 08:46 [facility] ID: [id number] [address] [place] [address], [phone] LOINC: 664-3 Test Value Unit Reference Range Code Code System Flag SOURCE- Other WBC s few PREDOMINANT ORGANISM Gram pos cocci CULT ANAEROBIC ([facility]) CULTU RE - Collect Date/Time: 08/12/2023 08:46 [facility] ID: [id number] [address] [place] [address], [phone] LOINC: 635-3 Test Value Unit Reference Range Code Code System Flag Result IVON Meza BASIC METABOLIC PANEL (BMP) - Collect Date/Time: 08/12/2023 07:00 [facility] ID: [id number] [address] [place] [address], [address] LOINC: 81174-2 Test Value Unit Reference Range Code Code [...] H=34 2028-9 LOINC ANION GAP 9.0 mmol/L 36381-0 LOINC CALCIUM SERUM 9.1 mg/dL L=8.2 H=10.2 50109-0 LOINC AGE 53 years eGFR (non-Afr.Amer.) 79 mL/min 67429-3 LOINC eGFR (Afr-Mauritanian) 95 mL/min 60626-2 LOINC CBC W/ DIFFERENTIAL* - Colle ct Date/Time: 08/12/2023 07:00 [facility] ID: [id number] [address] [place] [address], [address] LOINC: 85494-6 Test Value Unit Reference Range Code Code System Flag WBC 5.01 th/cmm L=5.00 H=10.00 6690-2 LOINC NEUT % 60.9 % L=40.0 H=80.0 LYMPH % 25.9 % L=10.0 H=50.0 MONO % 9.6 % L=2.0 H=12.0 33929-5 LOINC EOS % 2.6 % L=0.0 H=8.0 BASO % 0.8 % L=0.0 H=3.0 IG % 0.2 % L=0.0 H=1.1 2514-8 LOINC NRBC % 0.0 % L=0.0 H=0.0 60519-6 LOINC NEUT abs count 3.1 th/cmm L=1.6 H=8.4 751-8 LOINC LYMPH abs count 1.3 th/cmm L=1.5 H=4.0 731-0 LOINC L MONO abs count 0.5 th/cmm L=0.2 H=1.0 742-7 LOINC EOS abs count 0.1 th/cmm L=0.0 H=0.5 711-2 LOINC BASO abs count 0.0 th/cmm L=0.0 H=0.2 704-7 LOINC IG abs count 0.0 th/cmm L=0.0 H=0.1 32666-0 LOINC NRBC abs count 0.0 mil/cmm L=0.0 H=0.0 53051-8 LOINC RBC 4.85 mil/cmm L=4.30 H=6.20 789-8 [...] CAP ILLARY - Collect Date/Time: 08/12/2023 06:55 [facility] ID: [id number] [address] [place], [place], [phone] LOINC: 89969-2 Test Value Unit Reference Range Code Code System Flag GLUCOSE CAP 236 mg/dL L=70 H=116 33776-1 LOINC H Social History Type Status Start Date End Date Code Code Rochelle em Sex Male Vital Signs Vital Sign Value Unit [place] Value [place] Unit Date/Time Recent/Initial? Code Code System Body Mass Index 32.19 kg/m2 08/04/2023 14:04 Initial 70731 -5 LOINC Systolic Blood Pressure 171 mm[Hg] 08/12/2023 09:13 Initial 8480- 6 LOINC Diastolic Blood Pressure 95 mm[Hg] 08/12/2023 09:13 Initial 8462- 4 LOINC Body Surface Area 2.19 m2 08/04/2023 14:04 Initial 3140- 1 LOINC Height 175.260 0 cm 69.00 in 08/04/2023 14:04 Initial 8302- 2 LOINC O2 Saturation 97 % 2022 09:13 Initial 24349 -5 LOINC Pulse 59.0 /min 08/12/2023 09:13 Initial 8867- 4 LOINC Respiration 10 /min 08/12/20 09:13 Initial 9279- 1 LOINC Temperature 36.3 Destiny 97.3 F 08/12/20 09:13 Initial 8310- 5 LOINC Weight 98.88 kg 217.99 lbs 08/04/2023 14:04 Initial 30511 -7 LOINC Hospital Discharge Instructions Should you have any questions prior to discharge, please contact a member of your healthcare team. If you have left the hospital and have any questions, please contact your primary care physician. Reason For Referral No Data Found Procedures Procedure Name Date Status Code Code Maite m Amputation, Toe; Interphalangeal Joint 08/12/2023 complete d 33402 CPT Anesthesia, Nerves/Muscles/T endons & Fascia, Lower Leg/Ankle/Foot; NOS 08/12/2023 completed 86456 CPT Allergies and Adverse Reactions Allergy Substance Reaction Severity Start Date Concern Status Co de Code System LISINOPRIL Active 05388 RxNorm Plan of Treatment MRI LOWER EXT W/O CONTRAST 08/06/2023 Encounters Encounter Diagnosis Start Date Code Code Sys tem Other acute osteomyelitis, left ankle and foot 023 SNOMED-CT Personal Care Team Section Performer Name Performer Role Active Date Inactive Da te
--- OUTSIDE RECORDS SUMMARY | 2024-09-01 17:30 | XMS_ITS ---
Author Organization Unknown Address [address] [place] [address] [phone] Phone Care Team Providers Care Car Knocker Name Role Phone DAVE Meza Attending Unavailable [...] Status Co de Code System LISINOPRIL Active 59705 RxNorm Plan of Treatment MRI LOWER EXT W/O CONTRAST 08/06/2023 Encounters Encounter Diagnosis Start Date Code Code Sys tem Acute osteomyelitis of ankle and/or foot 08/12/2023 600178783 SNOMED-CT Personal Care Team Section Performer Name Performer Role Active Date Inactive Da te
--- OUTSIDE RECORDS SUMMARY | 2024-09-01 17:30 | XMS_ITS ---
Author Organization Unknown Address [address] [place] [address] [phone] Phone Care Team Providers Care Cut To Length Operator Name Role Phone DAVE Meza Attending [...] Status Co de Code System LISINOPRIL Active 87151 RxNorm Plan of Treatment MRI LOWER EXT W/O CONTRAST 08/06/2023 Encounters Encounter Diagnosis Start Date Code Code Sys tem Acute osteomyelitis of ankle and/or foot 08/19/2023 713916627 SNOMED-CT Personal Care Team Section Performer Name Performer Role Active Date Inactive Da suresh
--- OUTSIDE RECORDS SUMMARY | 2024-09-01 17:31 | XMS_ITS ---
Author Organization Unknown Address [address] [place] [address] [phone] Phone Care Team Providers Care Fisher Pot Name Role Phone DAVE Meza Attending Unavailable [...] Status Co de Code System LISINOPRIL Active 96848 RxNorm Plan of Treatment MRI LOWER EXT W/O CONTRAST 08/06/2023 Encounters Encounter Diagnosis Start Date Code Code Sys tem 10/20/2023 [id number] SNOMED-CT Personal Care Team Section Performer Name Performer Role Active Date Inactive Da suresh
--- OUTSIDE RECORDS SUMMARY | 2024-09-01 17:31 | XMS_ITS ---
Author Organization Unknown Address [address] [place] [address] [phone] Phone Care Team Providers Care Java Web Architect Name Role Phone DAVE Meza Attending Unavailable [...] Status Co de Code System LISINOPRIL Active 51329 RxNorm Plan of Treatment MRI LOWER EXT W/O CONTRAST 08/06/2023 Encounters Encounter Diagnosis Start Date Code Code Sys tem Abscess of foot 09/29/2023 010719865 SNOMED-CT Personal Care Team Section Performer Name Performer Role Active Date Inactive Da suresh
--- OUTSIDE RECORDS SUMMARY | 2024-09-01 17:31 | XMS_ITS ---
Author Organization Unknown Address [address] [place] [address] [phone] Phone Care Team Providers Care Pole Peeler Name Role Phone DAVE Meza Attending Unavailable [...] Status Co de Code System LISINOPRIL Active 86701 RxNorm Plan of Treatment MRI LOWER EXT W/O CONTRAST 08/06/2023 Encounters Encounter Diagnosis Start Date Code Code Sys tem Abscess of foot 09/22/2023 175141788 SNOMED-CT Personal Care Team Section Performer Name Performer Role Active Date Inactive Da suresh
--- OUTSIDE RECORDS SUMMARY | 2024-09-01 17:32 | XMS_ITS ---
Author Organization Unknown Address [address] [place] [address] [phone] Phone Care Team Providers Care Global Category Manager Name Role Phone DAVE Meza Attending Unavailable LOLA Herr Primary Unavailable Results CBC W/ DIFFERENTIAL* - Colle ct Date/Time: 10/27/2023 11:36 [facility] ID: [id number] [address] [place] [address], [address] LOINC: 28936-4 Test Value Unit Reference Range Code Code System Flag WBC 5.47 th/cmm L=5.00 H=10.00 6690-2 LOINC NEUT % 64.0 % L=40.0 H=80.0 LYMPH % 25.8 % L=10.0 H=50.0 MONO % 7.7 % L=2.0 H=12.0 24650-1 LOINC EOS % 1.8 % L=0.0 H=8.0 BASO % 0.5 % L=0.0 H=3.0 IG % 0.2 % L=0.0 H=1.1 2514-8 LOINC NRBC % 0.0 % L=0.0 H=0.0 22347-4 LOINC NEUT abs count 3.5 th/cmm L=1.6 H=8.4 751-8 LOINC LYMPH abs count 1.4 th/cmm L=1.5 H=4.0 731-0 LOINC L MONO abs count 0.4 th/cmm L=0.2 H=1.0 742-7 LOINC EOS abs count 0.1 th/cmm L=0.0 H=0.5 711-2 LOINC BASO abs count 0.0 th/cmm L=0.0 H=0.2 704-7 LOINC IG abs count 0.0 th/cmm L=0.0 H=0.1 90020-3 LOINC NRBC abs count 0.0 mil/cmm L=0.0 H=0.0 79999-3 LOINC RBC 5.18 mil/cmm L=4.30 H=6.20 789-8 [...] PANEL (BMP) - Collect Date/Time: 10/27/2023 11:36 [facility] ID: [id number] [address] [place] [address], [address] LOINC: 76628-0 Test Value Unit Reference Range Code Code [...] H=34 2028-9 LOINC ANION GAP 4.7 mmol/L 88527-4 LOINC CALCIUM SERUM 8.8 mg/dL L=8.2 H=10.2 81585-6 LOINC AGE 53 years eGFR (non-Afr.Amer.) 56 mL/min 97895-6 LOINC eGFR (Afr-Prydeinig) 68 mL/min 44167-8 LOINC XR TOE(S) 2V OR MORE LT* - C ompleted: 10/27/2023 11:21 LOINC: [facility] RADIOLOGY [place], [place] [address] PACS CARDIAC EXERCISE SPECIALIST REPORT Patient Name: LUDY JARA MRN: Sex: : Age: [id number] M [id number] Account: Accession: Admit: StayType: [id number] 10/27/2023 CLINIC Ordered: Order ID: Submitted: Ordering Provider: 10/27/2023 08:04 [id number] MARTY WARD Completed: Technologist: Resulted: 10/27/2023 11:21 [...] Status Co de Code System LISINOPRIL Active 07378 RxNorm Plan of Treatment MRI LOWER EXT W/O CONTRAST 08/06/2023 Encounters Encounter Diagnosis Start Date Code Code Sys tem Acute osteomyelitis of ankle and/or foot 10/27/2023 085642396 SNOMED-CT Personal Care Team Section Performer Name Performer Role Active Date Inactive Da te
--- OUTSIDE RECORDS SUMMARY | 2024-09-01 17:32 | XMS_ITS ---
Author Organization Unknown Address [address] [place] [address] [phone] Phone Care Team Providers Care High Rigger Name Role Phone DAVE Meza Attending Unavailable [...] Status Co de Code System LISINOPRIL Active 33818 RxNorm Plan of Treatment MRI LOWER EXT W/O CONTRAST 08/06/2023 Encounters Encounter Diagnosis Start Date Code Code Sys tem 10/14/2023 [id number] SNOMED-CT Personal Care Team Section Performer Name Performer Role Active Date Inactive Da suresh
--- OUTSIDE RECORDS SUMMARY | 2024-09-01 17:32 | XMS_ITS ---
Author Organization Unknown Address [address] [place] [address] [phone] Phone Care Team Providers Care Director Of Training Name Role Phone DAVE Meza Attending Unavailable [...] Status Co de Code System LISINOPRIL Active 52552 RxNorm Plan of Treatment MRI LOWER EXT W/O CONTRAST 08/06/2023 Encounters Encounter Diagnosis Start Date Code Code Sys tem Acute osteomyelitis of ankle and/or foot 11/10/2023 263113835 SNOMED-CT Personal Care Team Section Performer Name Performer Role Active Date Inactive Da suresh
--- OUTSIDE RECORDS SUMMARY | 2024-09-01 17:32 | XMS_ITS ---
Author Organization Unknown Address [address] [place] [address] [phone] Phone Care Team Providers Care Shotweld Operator Name Role Phone DAVE Meza Attending [...] Status Co de Code System LISINOPRIL Active 01065 RxNorm Plan of Treatment MRI LOWER EXT W/O CONTRAST 08/06/2023 Encounters Encounter Diagnosis Start Date Code Code Sys tem Abscess of foot 10/07/2023 080343498 SNOMED-CT Personal Care Team Section Performer Name Performer Role Active Date Inactive Da suresh
--- OUTSIDE RECORDS SUMMARY | 2024-09-01 17:33 | XMS_ITS | Encounter Summary ---
Author Organization [facility] Address [address] [place] [address] Care Team Providers Care Pig Machine Crane Operator Name Role Phone Mariella Ramon MD Primary Care Provider [phone] Encounter Details Date Type Department Care Team (Late st Contact Info) Description 05/20/2024 Lab Requisition [facility] Pathology & Laboratory Medicine - [address] [address] Ozzy Garcia MD [address] [place] [address], [address] [place], [place] [phone] Encounter for screening for malignant neoplasm of [...] explore management options, if applicable. 05/25/2024 14:22 [facility] Final Diagnosis A. COLON, 65 CM, POLYP, BIOPSY: - Tubular adenoma fragments. B. COLON, 40 CM, POLYP, BIOPSY: - Tubular adenoma fragments. 05/25/2024 14:22 [facility] Attestation By the signature below, the attending physician certifies that they have 1) personally conducted a gross and/or microscopic examination of the described specimen(s), and/or personally interpreted the results of laboratory testing of the described specimen(s), and 2) personally rendered or confirmed the above diagnosis. 05/25/2024 14:22 [facility] at 1422 Clinical History Screening colonoscopy, polyps 05/25/2024 14:22 [facility] Gross Description A. Received in [...] B1. ERIC ABRAHAM(ASCP) 05/22/2024 7:34 05/25/2024 14:22 [facility] Performing Lab [facility] 05/25/2024 14:22 T [facility] Scanned Images 05/25/2024 14:22 [facility] Tissue POLYP OF COLON / Unknown 05/19/2024 9:44 EDT 05/20/2024 10:36 EDT Tissue specimen (specimen) POLYP OF COLON / Unknown 05/19/2024 9:44 EDT 05/20/2024 10:36 EDT Ozzy Garcia MD PATHOLOGY ORDERABLES [facility] [address] [place] [address] documented in this encounter Visit Diagnoses Diagnosis Encounter for screening for malignant neoplasm of colon Special screening for malignant neoplasms, colon documented in this encounter Care Teams Pig Machine Crane Operator Relationship Specialty Start Date End Date Mariella Ramon MD [address] [place] [address] PCP - General Family Medicine - Primary Care 02/23/22 documented as of this encounter
--- OUTSIDE RECORDS SUMMARY | 2024-09-01 17:33 | XMS_ITS ---
Author Organization Unknown Address [address] [place] [address] [phone] Phone Care Team Providers Care Systems Support Specialist Name Role Phone DAVE Meza Attending [...] Amputation, Toe; Interphalangeal Joint 11/15/2023 complete d 61370 CPT Allergies and Adverse Reactions Allergy Substance Reaction Severity Start Date Concern Status Co de Code System LISINOPRIL Active 60630 RxNorm Plan of Treatment MRI LOWER EXT W/O CONTRAST 08/06/2023 Encounters Encounter Diagnosis Start Date Code Code Sys tem Other chronic osteomyelitis, left ankle and foot 11/15 SNOMED-CT Personal Care Team Section Performer Name Performer Role Active Date Inactive Da te
--- OUTSIDE RECORDS SUMMARY | 2024-09-01 17:33 | XMS_ITS ---
Author Organization Unknown Address [address] [place] [address] [phone] Phone Care Team Providers Care Machine Heel Builder Name Role Phone DAVE Meza Attending Unavailable EVELIN Javier ACCOUNT RELATIONSHIP MANAGER Unavailable LOLA Herr Primary Unavailable Results GRAM STAIN* - Collect Date/T vito: 11/15/2023 11:15 [facility] ID: [id number] [address] [place] [address], [id number] LOINC: 664-3 Test Value Unit Reference Range Code Code System Flag SOURCE- Other WBC s few [employer] Gram pos cocci NOVA GLUCOSE FINGER HEEL CAP ILLARY - Collect Date/Time: 11/15/2023 08:56 [facility] ID: [id number] [address] [place], [place], [id number] LOINC: 65612-0 Test Value Unit Reference Range Code Code System Flag GLUCOSE CAP 244 mg/dL L=70 H=116 47020-4 LOINC H NOVA GLUCOSE FINGER HEEL CAP ILLARY - Collect Date/Time: 11/15/2023 07:31 [facility] ID: [id number] [address] [place] [address], [phone] LOINC: 77328-8 Test Value Unit Reference Range Code Code System Flag GLUCOSE CAP 267 mg/dL L=70 H=116 22291-7 LOINC H Social History Type Status Start Date End Date Code Code Syst em Sex Male Vital Signs Vital Sign Value Unit Weld Value Weld Unit Date/Time Recent/Initial? Code Code System Body Mass Index 33.23 kg/m2 11/10/2023 12:45 Initial 51414 -5 [facility] Systolic Blood Pressure 176 mm[Hg] 11/15/2023 10:15 Most Recent 8480- 6 LOINC Diastolic Blood Pressure 87 mm[Hg] 11/15/2023 10:15 Most Recent 8462- 4 [facility] Systolic Blood Pressure 93 mm[Hg] 11/15/2023 09:01 Initial 8480- 6 [facility] Diastolic Blood Pressure 57 mm[Hg] 11/15/2023 09:01 Initial 8462- 4 [facility] Body Surface Area 2.23 m2 11/10/2023 12:45 Initial 3140- 1 [facility] Height 175.260 0 cm 69.00 in 11/10/2023 12:45 Initial 8302- 2 [facility] O2 Saturation 95 % 2023 10:15 Most Recent 78872 -5 [facility] O2 Saturation 100 % 2023 09:01 Initial 29828 -5 [facility] Pulse 64.0 /min 11/15/2023 10:15 Most Recent 8867- 4 [facility] Pulse 65.0 /min 11/15/2023 09:01 Initial 8867- 4 INC Respiration 12 /min 11/15/19 24 10:15 Most Recent 9279- 1 [facility] Respiration 11 /min 11/15/19 24 09:01 Initial 9279- 1 [facility] Temperature 36.5 Destiny 97.7 F 11/15/19 24 09:01 Initial 8310- 5 INC Weight 102.06 kg 225.00 lbs 11/10/2023 12:45 Initial 89583 -7 [facility] Hospital Discharge Instructions Should you have any questions prior to discharge, please contact a member of your healthcare team. If you have left the hospital and have any questions, please contact your primary care physician. Reason For Referral No Data Found Procedures Procedure Name Date Status Code Code Syste m Amputation, Toe; Interphalangeal Joint 11/15/2023 complete d 91190 CPT Anesthesia, Nerves/Muscles/T endons & Fascia, Lower Leg/Ankle/Foot; NOS 11/15/2023 completed 30499 CPT Allergies and Adverse Reactions Allergy Substance Reaction Severity Start Date Concern Status Co de Code System LISINOPRIL Active 69569 RxNorm Plan of Treatment MRI LOWER EXT W/O CONTRAST 08/06/2023 Encounters Encounter Diagnosis Start Date Code Code Sys tem Other chronic osteomyelitis, left ankle and foot 11/15 SNOMED-CT Personal Care Team Section Performer Name Performer Role Active Date Inactive Da te
--- OUTSIDE RECORDS SUMMARY | 2024-09-01 17:33 | XMS_ITS | Referral Summary ---
Author Organization [facility] Address [address] [place] [address] Care Team Providers Care Four Slide Machine Operator Name Role Phone Mariella Ramon MD Primary Care Provider Allergies Active Allergy Reactions Criticality Noted Date [...] of Treatment Not on file Care Teams Four Slide Machine Operator Relationship Specialty Start Date End Date Mariella Ramon MD [address] [place] [address] PCP - General Family Medicine - Primary Care 02/23/22
--- OUTSIDE RECORDS SUMMARY | 2024-09-01 17:33 | XMS_ITS ---
Author Organization Unknown Address [address] [place] [address] [phone] Phone Care Team Providers Care Simplex Operator Name Role Phone DAVE Meza Attending [...] Status Co de Code System LISINOPRIL Active 38169 RxNorm Plan of Treatment MRI LOWER EXT W/O CONTRAST 08/06/2023 Encounters Encounter Diagnosis Start Date Code Code Sys tem 12/16/2023 [id number] SNOMED-CT Personal Care Team Section Performer Name Performer Role Active Date Inactive Da suresh
--- OUTSIDE RECORDS SUMMARY | 2024-09-01 17:33 | XMS_ITS | Clinical Summary ---
Author Organization [facility] Address [address] [place] [address] Care Team Providers Care Wet Mixer Name Role Phone Mariella Ramon MD Primary Care Provider [phone] Allergies Active Allergy Reactions Criticality Noted Date [...] COVID-19 Vaccine (2023- season) 2024 Care Teams Wet Mixer Relationship Specialty Start Date End Date Mariella Ramon MD [address] [place] [address] PCP - General Family Medicine - Primary Care 02/23/22
--- OUTSIDE RECORDS SUMMARY | 2024-09-01 17:33 | XMS_ITS | Encounter Summary ---
Author Organization [facility] Address [address] [place] [address] Care Team Providers Care Site Superintendent Name Role Phone Mariella Ramon MD Primary Care Provider [phone] Encounter Details Date Type Department Care Team (Late st Contact Info) Description 08/12/2023 Lab Requisition [facility] Pathology & Laboratory Medicine - [address] [address] Outr Resulting Lab, Provider Social History Tobacco [...] Few Actinomyces odontolyticus(A ) 08/19/2023 11:02 EDT [facility] Tissue TOE STRUCTURE / Unknown 08/12/2023 8:46 EDT 08/12/2023 22:49 EDT Provider Outr Resulting Lab MICROBIOLOGY - GENERAL ORDERABLES [facility] [address] [place] [address] documented in this encounter Visit Diagnoses Not on filedocumented in this encounter Care Teams Site Superintendent Relationship Specialty Start Date End Date Mariella Ramon MD [address] [place] [phone] PCP - General Family Medicine - Primary Care 02/23/22 documented as of this encounter
--- OUTSIDE RECORDS SUMMARY | 2024-09-01 17:33 | XMS_ITS | Encounter Summary ---
Author Organization [facility] Address [address] [place] [address] Care Team Providers Care Oracle Drm Consultant Name Role Phone Mariella Ramon MD Primary Care Provider [phone] Encounter Details Date Type Department Care Team (Late st Contact Info) Description 08/12/2023 Lab Requisition [facility] Pathology & Laboratory Medicine - [address] [address] Outr Resulting Lab, Provider Social History Tobacco [...] ID Few Deniseldia magna(A) 08/18/2023 13:55 EDT [facility] Tissue TOE STRUCTURE / Unknown 08/12/2023 8:46 EDT 08/12/2023 22:48 EDT Provider Outr Resulting Lab MICROBIOLOGY - GENERAL ORDERABLES [facility] [address] [place] [address] documented in this encounter Visit Diagnoses Not on filedocumented in this encounter Care Teams Oracle Drm Consultant Relationship Specialty Start Date End Date Mariella Ramon MD [address] [place] [phone] PCP - General Family Medicine - Primary Care 02/23/22 documented as of this encounter
--- OUTSIDE RECORDS SUMMARY | 2024-09-01 17:33 | XMS_ITS | Encounter Summary ---
Author Organization [facility] Address [address] [place] [address] Care Team Providers Care Buttonhole Marker Name Role Phone Mariella Ramon MD Primary Care Provider [phone] Encounter Details Date Type Department Care Team (Late st Contact Info) Description 09/20/2023 Lab Requisition [facility] Pathology & Laboratory Medicine - [address] [address] Outr Resulting Lab, Provider Social History Tobacco [...] Staphylococcus caprae(A) VITEK SUSCEPTIBILITY 09/22/2023 7:48 EST [facility] Organism TOE STRUCTURE / [...] Outr Resulting Lab MICROBIOLOGY - GENERAL ORDERABLES [facility] [address] [place] [address] documented in this encounter Visit Diagnoses Not on filedocumented in this encounter Care Teams Buttonhole Marker Relationship Specialty Start Date End Date Mariella Ramon MD [address] [place] [address] PCP - General Family Medicine - Primary Care 02/23/22 documented as of this encounter
--- OUTSIDE RECORDS SUMMARY | 2024-09-01 17:33 | XMS_ITS | Encounter Summary ---
Author Organization [facility] Address [address] [place] [address] Care Team Providers Care Sales Account Specialist Name Role Phone Mariella Ramon MD Primary Care Provider [phone] Reason for Visit * Reason Comments Follow-up Encounter Details Date Type Department Care Team (Late st Contact Info) Description 05/06/2022 11:00 EDT Telemedicine [facility] Infectious Disease - [address] [phone] Jerry Sams, [address] [facility], [address] [place] [address] MSSA bacteremia (Primary Dx) Social [...] 2 diabetes, sleep apnea, prolonged admission at [facility] for MSSA bacteremia that most likely [...] urine cultures MSSA 05 February blood cultures MSSA??([facility])??susceptible to Cipro, gentamicin, daptomycin, erythromycin, oxacillin, vancomycin 05 February blood cultures no growth 07 February blood cultures MSSA??( [facility]) 08 February blood cultures no growth 12 February right thigh abscess MSSA??([facility]) 02 March left thigh fluid collection no growth ?? Radiology: See official report below ?? 02 march IR report from [facility] 1. ??The anterior left thigh [...] note to primary care provider, Dr Ramon [phone] ?? It has been a pleasure seeing Mr. Ruiz in clinic today. All questions answered. ?? Jerry Sams DO Pager [phone] Infectious Diseases documented in this encounter Plan of Treatment Not on file documented as of this encounter Visit Diagnoses Diagnosis MSSA bacteremia- Primary documented in this encounter Care Teams Sales Account Specialist Relationship Specialty Start Date End Date Mariella Ramon MD [address] [place] [phone] PCP - General Family Medicine - Primary Care 02/23/22 documented as of this encounter
--- OUTSIDE RECORDS SUMMARY | 2024-09-01 17:34 | XMS_ITS | Encounter Summary ---
Author Organization [facility] [place] [address] Care Team Providers Care Gericare Aide Teacher Name Role Phone Mariella Ramon MD Primary Care Provider [phone] Encounter Details Date Type Department Care Team (Late st Contact Info) Description 02/17/2022 Telephone Cardiology at [address] [phone] Marizol Lu PA [facility] [place] [address] Social History Tobacco Use Types Packs/Day Years [...] AM Referring Provider: Dr. Greenberg Patient Location: [facility] Past Medical History: ?? DM ?? [...] the patient condition. ERIC Lorenzo 02/17/2022 Pager [phone] I have not personally reviewed EKGs. 02/17/2022 documented in this encounter Plan of Treatment Not on file documented as of this encounter Visit Diagnoses Not on filedocumented in this encounter Care Teams Gericare Aide Teacher Relationship Specialty Start Date End Date Mariella Ramon MD [address] [place] [address] PCP - General Family Medicine 06/01/19 documented as of this encounter
--- OUTSIDE RECORDS SUMMARY | 2024-09-01 17:34 | XMS_ITS | Encounter Summary ---
[place] [address] Care Team Providers Care Rubber Goods Tester Water Name Role Phone Mariella Ramon MD Primary Care Provider [phone] Encounter Details Date Type Department Care Team (Late st Contact Info) Description 02/26/2022 [place] [address] Davi Bower MD [facility] [place] [address] Social History Tobacco Use Types Packs/Day Years [...] Service contacted by Jerry Sams MD at [facility] Infectious Disease clinic regarding the procedure request below. There are no answered order specific questions. Presenting Diagnosis/ Complaint: Lino Ruiz is a 51 y.o. male with past medical history of type2 diabetes, sleep apnea, recent admission to [facility] with MSSA bacteremia and UTI. MRI 02/09 showed bilateral thigh collections. Ultrasound 02/10 showed the right collection to be drainable but not the left. IR placed right-sided thigh drain on 02/12/2022. Patient is was readmitted at [facility] with increased pain, erythema, and tenderness of the left thigh. IR was contacted by about aspirating/draining the left thigh, on 02/[address] showed the collection was too small to drain, which was communicated to [facility] team as documented in a consult note written by myself. On day of discharge (02/20/22) the collection had increased in size on ultrasound and we agreed to complete an outpatient drain placement once we received a fax with an order and recent H&P. This is documented in Paul Ennis's consult note dated 02/20/22. Interval history: The order from [facility] was received on 02/25/22. Today, 02/26 we received a call from Per Sams MD from [facility] Infectious Disease about mr Ruiz who is currently in clinic and presenting with increasing size of the left thigh collection. Per Dr. Sams his labs today show a normal WBC, and additionally he has had no fevers. He is continuing on antibiotic therapy with ID at [facility], and they are requesting drain placement. Past Medical/Surgical History: There is no problem list on file for this patient. No past medical history on file. Past Surgical History: Procedure Laterality Date ??? IR ALL DRAINAGE PROCEDURES 02/12/2022 IR All Drainage Procedures 02/12/2022 Wilfrido Rojo MD [facility] INTERVENTIONL RAD Medications: Current Outpatient Medications [...] as per HPI Labs: normal WBC at [facility] ID clinic per Dr. Sams Imaging: OSH Ultrasound dated 02/20/22 Physical Exam: Pending (to be performed in angio the day of procedure) ASA: Pending (to be assessed in angio the day of procedure) Mallampati Class: Pending (to be assessed in angio the day of procedure) Assessment: 51 y.o. male with bilateral thigh soft tissue collections presenting to [facility] for drain placement in the setting of [...] on filedocumented in this encounter Care Teams Rubber Goods Tester Water Relationship Specialty Start Date End Date Mariella aRmon MD [address] [place] [address] PCP - General Family Medicine 06/01/19 documented as of this encounter
--- OUTSIDE RECORDS SUMMARY | 2024-09-01 17:34 | XMS_ITS | Encounter Summary ---
Author Organization [facility] Address [address] [place] [address] Care Team Providers Care Conveyor Feeder Name Role Phone Mariella Ramon MD Primary Care Provider [phone] Reason for Visit * Reason Onset Date Comments IV Maintenance 03/20/2022 Encounter Details Date Type Department Care Team (Late st Contact Info) Description 03/20/[address] [facility] Infectious Disease - [facility] [address] [place], [place] [address] Jerry Sams, DO [address] [facility], Level [address] [place] [address] IV Maintenance Social History Tobacco [...] Encounter - Maryjane Arce RN - 03/20/2022 1593 EDT Please see plan below per Dr. Sams. Order placed for bilateral thigh ultrasound to be completed at [facility] hospital 5-6 weeks from now. Faxed order to [facility] Radiology. Phoned Dr. Ramon's office at [facility]. Confirmed with their office Dr. Ramon will [...] radiology department up at the hospital in [facility]? ?? ID RN team. ??Patient will finish his 6 weeks of Ancef on 22 March. ??Patient has a visit with his primary care provider on [facility] Dr. Ramon, who had already told the [...] 1323 EDT Received call from Nicki at [facility] stating they have orders for patient ending treatment on 03/22/22. Nicki would like to receive orders to discontinue IV antibiotics and picc line. Fax # [phone] documented in this encounter Plan of Treatment Not on file documented as of this encounter Visit Diagnoses Diagnosis Abscess- Primary Cellulitis and abscess of unspecified site Abscess of left thigh Cellulitis and abscess of leg, except foot Abscess of right thigh Cellulitis and abscess of leg, except foot MSSA bacteremia documented in this encounter Care Teams Conveyor Feeder Relationship Specialty Start Date End Date Mariella Ramon MD [address] [place] [address] PCP - General Family Medicine - Primary Care 02/23/22 documented as of this encounter
--- OUTSIDE RECORDS SUMMARY | 2024-09-01 17:34 | XMS_ITS | Encounter Summary ---
Author Organization [facility] [place] [address] Care Team Providers Care Scrap Iron Loader Name Role Phone Mariella Ramon MD Primary Care Provider [phone] Encounter Details Date Type Department Care Team (Late st Contact Info) Description 02/16/2022 6:10 PM EDT Ancillary Procedure Radiology Library at [facility] [place] [id number] Mariella Ramon MD [address] [place], [place] [id number] Social History Tobacco Use Types Packs/Day Years [...] Ramon MD G FILM LIBRARY ORD ERABLES [place], [place] documented in this encounter Visit Diagnoses Not on filedocumented in this encounter Care Teams Scrap Iron Loader Relationship Specialty Start Date End Date Mariella Ramon MD [address] [place] [address] PCP - General Family Medicine 06/01/19 documented as of this encounter
--- OUTSIDE RECORDS SUMMARY | 2024-09-01 17:34 | XMS_ITS | Encounter Summary ---
Author Organization [facility] Address [address] [place] [address] Care Team Providers Care Elevator Operator Freight Name Role Phone Mariella Ramon MD Primary Care Provider Reason for Visit * Reason Onset Date Comments Other 03/24/2022 Encounter Details Date Type Department Care Team (Late st Contact Info) Description 03/24/2022 Telephone [facility] Infectious Disease - [address] [id number] Jerry Sams, DO 111 [facility], [address] [place] [address] Other Social History Tobacco Use [...] - 03/24/2022 1431 EDT Received call from [facility] nurse, Kathy, who confirms patients picc line has been removed andthey are discharging patient from services. Any additional jd and Kathy can be reached at [phone]. documented in this encounter Plan of Treatment Not on file documented as of this encounter Visit Diagnoses Not on filedocumented in this encounter Care Teams Elevator Operator Freight Relationship Specialty Start Date End Date Mariella Ramon MD [address] [place] [address] PCP - General Family Medicine - Primary Care 02/23/22 documented as of this encounter
--- OUTSIDE RECORDS SUMMARY | 2024-09-01 17:34 | XMS_ITS | Encounter Summary ---
[place] [address] Care Team Providers Care Commercial Attorney Name Role Phone Mariella Ramon MD Primary Care Provider Reason for Referral * Diagnostic Test (Routine) - Closed Specialty Diagnoses / Procedures Referred By Contac t Referred To Contact Radiology Diagnoses Low back pain, unspecified back pain laterality, unspecified chronicity, unspecified whether sciatica present Procedures MRI Lumbar Spine wo Contrast (Generic) Mariella Ramon MD [address] [place] [address] [place] [address] Referral ID Status Reason Start Date Expiration Date V isits Requested Visits Authorized [id number] Closed Specialty Service Requested 02/15/2024 08/16/2025 1 1 Reason for Visit * Diagnostic Test (Routine) - Closed Specialty Diagnoses / Procedures Referred By Contac t Referred To Contact Radiology Diagnoses Low back pain, unspecified back pain laterality, unspecified chronicity, unspecified whether sciatica present Procedures MRI Lumbar Spine wo Contrast (Generic) Mariella Ramon MD [address] [place] [address] [place] [address] Referral ID Status Reason Start Date Expiration Date V isits Requested Visits Authorized [id number] Closed Specialty Service Requested 02/15/2024 08/16/2025 1 1 Encounter Details Date Type Department Care Team (Latest Contact Info) Description 02/22/2024 6:57 AM EDT - 02/22/2024 11:59 PM EDT Hospital [place] [address] Mariella Ramon MD [address] [place] [address] Low back pain, unspecified back pain laterality, [...] (Generic) (02/22/2024 7:50 AM EDT) WORKSTATION ID [id number] [facility] Anatomical Region Laterality Modality L-spine Magnetic Resonan [...] who have questions please contact the health cna caregiver that requested your imaging first. ? Electronically signed by: Navneet Gagnon MD, [facility] ([phone]), at 02/22/2024 3:08 PM Narrative 02/22/2024 3:08 [...] The normal appearing conus terminates at the [id number]. Visualized retroperitoneal structures are unremarkable. Findings at [...] the clinical situation (Reference- Michael Et Al, [id number]). Findings: (Prevalence in patients without low back [...] patients who have questions please contactthe health cna caregiver that requested your imaging first. Mariella Ramon MD IMG MRI ORDERABLES documented in this encounter Visit Diagnoses Diagnosis Low back pain, unspecified back pain laterality, unspecified chronicity, unspecified whether sciatica present documented in this encounter Care Teams Commercial Attorney Relationship Specialty Start Date End Date Mariella Ramon MD [address] [place] [address] PCP - General Family Medicine 06/01/19 documented as of this encounter
--- OUTSIDE RECORDS SUMMARY | 2024-09-01 17:34 | XMS_ITS | Encounter Summary ---
Author Organization [facility] [place] [address] Care Team Providers Care Controller Mechanic Name Role Phone Mariella Ramon MD Primary Care Provider [phone] Encounter Details Date Type Department Care Team (Late st Contact Info) Description 02/07/2022 12:05 AM EDT Ancillary Procedure Radiology Library at [facility] [place] [phone] Mariella Ramon MD [address] [place], [place] [id number] Social History Tobacco Use Types Packs/Day Years [...] Ramon MD IMG FILM LIBRARY ORD ERABLES [place], [place] documented in this encounter Visit Diagnoses Not on filedocumented in this encounter Care Teams Controller Mechanic Relationship Specialty Start Date End Date Mariella Ramon MD [address] [place] [address] PCP - General Family Medicine 06/01/19 documented as of this encounter
--- OUTSIDE RECORDS SUMMARY | 2024-09-01 17:34 | XMS_ITS | Encounter Summary ---
Author Organization [facility] [place] [address] Care Team Providers Care Tinning Machine Set Up Operator Name Role Phone Mariella Ramon MD Primary Care Provider [phone] Encounter Details Date Type Department Care Team (Late st Contact Info) Description 02/09/2022 12:05 AM EDT Ancillary Procedure Radiology Library at [facility] [place] [phone] Mariella Ramon MD [address] [place], [place] [id number] Social History Tobacco Use Types Packs/Day Years [...] Ramon MD G FILM LIBRARY ORD ERABLES [place] documented in this encounter Visit Diagnoses Not on filedocumented in this encounter Care Teams Tinning Machine Set Up Operator Relationship Specialty Start Date End Date Mariella Ramon MD [address] [place] [address] PCP - General Family Medicine 06/01/19 documented as of this encounter
--- OUTSIDE RECORDS SUMMARY | 2024-09-01 17:34 | XMS_ITS | Encounter Summary ---
[place] [address] Care Team Providers Care Residential Service Technician Name Role Phone Mariella Ramon MD Primary Care Provider [phone] Reason for Referral * Diagnostic Test (Emergency) - Closed Specialty Diagnoses / Procedures Referred By Contac t Referred To Contact Radiology Diagnoses Abscess of left thigh Procedures IR All Drainage Procedures Jasson Greenberg MD [address] [place] [address] [place] [address] Referral ID Status Reason Start Date Expiration Date V isits Requested Visits Authorized [id number] Closed Specialty Service Requested 03/02/2022 10/31/2022 1 1 Reason for Visit * Diagnostic Test (Emergency) - Closed Specialty Diagnoses / Procedures Referred By Contac t Referred To Contact Radiology Diagnoses Abscess of left thigh Procedures IR All Drainage Procedures Jasson Greenberg MD [address] [place] [address] [place] [address] Referral ID Status Reason Start Date Expiration Date V isits Requested Visits Authorized [id number] Closed Specialty Service Requested 03/02/2022 10/31/2022 1 1 Encounter Details Date Type Department Care Team (Late st Contact Info) Description 03/02/2022 1:01 PM EDT - 03/02/2022 11:59 PM EDT Hospital Encounter Radiology at [facility] [place] [address] Jasson Greenberg MD [facility] [place] [address] Abscess of left thigh Discharge Disposition: Home [...] is during regular office hours, please call [phone]. If it is after regular office hours, or on weekends or holidays, please call [phone] and ask to speak to the Mannequin Sander And Finisher solution engineer for Interventional Radiology. You have received medication [...] of : 1970 AGE: 51 y.o. Address: [address] [place] [phone] (home) [phone] (work) Mobile: Telephone Information: Referring Provider: Jasson Greenberg REASON FOR VISIT: Order Questions Answers Where will study be performed? [facility] Radiology [120] Is the patient [...] All Drainage Procedures 02/12/2022 Wilfrido Rojo MD [facility] INTERVENTIONL RAD Date/Procedure Meds given/comments 03/02/22 left [...] Service contacted by Jerry Sams MD at [facility] Infectious Disease clinic regarding the procedure request below. There are no answered order specific questions. Presenting Diagnosis/ Complaint: Ludy Ruiz is a 51 y.o. male with past medical history of type2 diabetes, sleep apnea, recent admission to [facility] with MSSA bacteremia and UTI. MRI 02/09 showed bilateral thigh collections. Ultrasound 02/10 showed the right collection to be drainable but not the left. IR placed right-sided thigh drain on 02/12/2022. Patient is was readmitted at [facility] with increased pain, erythema, and tenderness of the left thigh. IR was contacted by about aspirating/draining the left thigh, on 02/[address] showed the collection was too small to drain, which was communicated to [facility] team as documented in a consult note written by myself. On day of discharge (02/20/22) the collection had increased in size on ultrasound and we agreed to complete an outpatient drain placement once we received a fax with an order and recent H&P. This is documented in Paul Ennis's consult note dated 02/20/22. Interval history: The order from [facility] was received on 02/25/22. Today, 02/26 we received a call from Per Sams MD from [facility] Infectious Disease about mr Ruiz who is currently in clinic and presenting with increasing size of the left thigh collection. Per Dr. Sams his labs today show a normal WBC, and additionally he has had no fevers. He is continuing on antibiotic therapy with ID at [facility], and they are requesting drain placement. Past Medical/Surgical History: There is no problem list on file for this patient. No past medical history on file. Past Surgical History: Procedure Laterality Date ??? IR ALL DRAINAGE PROCEDURES 02/12/2022 IR All Drainage Procedures 02/12/2022 Wilfrido Rojo MD [facility] INTERVENTIONL RAD Medications: Current Outpatient Medications [...] as per HPI Labs: normal WBC at [facility] ID clinic per Dr. Sasm Imaging: OSH Ultrasound dated 02/20/22 Physical Exam: Pending (to be performed in angio the day of procedure) ASA: Pending (to be assessed in angio the day of procedure) Mallampati Class: Pending (to be assessed in angio the day of procedure) Assessment: 51 y.o. male with bilateral thigh soft tissue collections presenting to [facility] for drain placement in the setting [...] who have questions please contact the health direct care supervisor that requested your imaging first. ? Electronically signed by: Thompson Winslow MD, [facility] ([phone]), at 03/03/2022 8:52 AM Narrative 03/03/2022 8:52 [...] patients who have questions please contactthe health direct care supervisor that requested your imaging first. Electronically signed by: Thompson Winslow MD, [facility]([phone]), at 03/03/2022 8:52 AM Jasson Greenberg MD [...] - GENER AL ORDERABLES Performing Organization Address [facility] [place] [address] * Abscess/Wound Aspirate Culture (03/02/2022 2:28 PM [...] - GENER AL ORDERABLES Performing Organization Address City/[facility]/ZIP Co de Phone Number [address] [place] [address] * Anaerobic Culture (03/02/2022 2:28 PM EDT) Anaerobic Culture No anaerobic organisms isolated [facility] Abscess STRUCTURE OF LEFT THIGH / Unknown 03/02/2022 2:28 PM EDT 03/02/2022 3:38 PM EDT Comment:Left lateral thigh Narrative Resulting Agency Comment Spec In Lab Jerry Cruz MD MICROBIOLOGY - GENER AL ORDERABLES Performing Organization Address [facility] Co de Phone Number [facility] [place] [address] * Abscess/Wound Aspirate Culture (03/02/2022 2:28 PM [...] - GENER AL ORDERABLES Performing Organization Address [facility] [place] [address] documented in this encounter Visit Diagnoses Diagnosis [...] mcg documented in this encounter Care Teams Residential Service Technician Relationship Specialty Start Date End Date Mariella Ramon MD [address] [place] [address] PCP - General Family Medicine 06/01/19 documented as of this encounter
--- OUTSIDE RECORDS SUMMARY | 2024-09-01 17:34 | XMS_ITS | Encounter Summary ---
[place] [address] Care Team Providers Care Resident Care Coordinator Name Role Phone Mariella Ramon MD Primary Care Provider [phone] Reason for Referral * Consultation (Routine) - Authorized Specialty Diagnoses / Procedures Referred By Contac t Referred To Contact [facility] Diagnoses Low back pain, unspecified back pain laterality, unspecified chronicity, unspecified whether sciatica present low back pain/h/o diabetic foot issues/MRI 02/22/24 in e-DH/Tried PT Mariella Ramon MD [address] [place] [address] [facility] [place] [address] Referral ID Status Reason Start Date Expiration Date Visits Requested Visits Authorized [id number] Authorized Consult, Test & Treat PCP Updated and/or Approved 02/14/2024 02/13/2025 1 1 Encounter Details Date Type Department Care Team (Latest Contact Info) Description 02/22/2024 Transcribe Orders eDH Incoming Referrals [phone] Mariella Ramon MD [address] [place] [address] Low back pain, unspecified back [...] present documented in this encounter Care Teams Resident Care Coordinator Relationship Specialty Start Date End Date Mariella Ramon MD [address] [place] [address] PCP - General Family Medicine 06/01/19 documented as of this encounter
--- OUTSIDE RECORDS SUMMARY | 2024-09-01 17:34 | XMS_ITS | Encounter Summary ---
Author Organization [facility] Address [address] [place] [address] Care Team Providers Care Hydroelectric Plant Structural Engineer Name Role Phone Unknown, Provider Primary Care Provider Mariella Haq MD Primary Care Provider [phone] Encounter Details Date Type Department Care Team (Late st Contact Info) Description 07/26/2021 Lab Requisition [facility] Pathology & Laboratory Medicine - [address] [address] Dexter Breen, DPZana [address] [place] [address] Plantar fascial fibromatosis; Achilles tendinitis, right [...] explore management options, if applicable. 07/30/2021 17:24 [facility] Final Diagnosis A. SOFT TISSUE, LEFT PLANTAR, EXCISION: - Plantar fibromatosis. 07/30/2021 17:24 [facility] Attestation There was significant resident/fellow involvement in the diagnostic evaluation of this case. By the signature below, the attending physician certifies that they have personally conducted a gross and/or microscopic examination of the described specimens and rendered or confirmed the above diagnosis. 07/30/2021 17:24 [facility] at 1724 Clinical History Left plantar fibrosis; clinical diagnosis code: M72.2, M76.61, S86.012A 07/30/2021 17:24 [facility] Gross Description A. Received [...] A1-A3. ERIC ABRAHAM(ASCP) 07/28/2021 8:43 07/30/2021 17:24 [facility] Resident/Danny w: Ben Zacarias DO 07/30/2021 17:24 [facility] Performing Lab [facility] 17:24 [facility] Scanned Images 07/30/2021 17:24 [facility] Tissue SOFT TISSUE / Unknown 07/25/2021 10:48 EDT 07/26/2021 10:52 EDT Dexter Breen DPM PATHOLOGY [facility] [address] [place] [address] documented in this encounter Visit Diagnoses Diagnosis Plantar fascial fibromatosis Achilles tendinitis, right leg Strain of left Achilles tendon, initial encounter documented in this encounter Care Teams Hydroelectric Plant Structural Engineer Relationship Specialty Start Date End Date Unknown, Provider, PCP - General 02/20/22 02/22/22 Mariella Ramon MD [address] [place] [address] PCP - General Family Medicine - Primary Care 02/23/22 documented as of this encounter
--- OUTSIDE RECORDS SUMMARY | 2024-09-01 17:34 | XMS_ITS | Encounter Summary ---
Author Organization [facility] Address [address] [place] [address] Care Team Providers Care Ceramic Coater Machine Name Role Phone Mariella Ramon MD Primary Care Provider [phone] Reason for Referral * Laboratory Services (Routine/Next Available) - New Request Specialty Diagnoses / Procedures Referred By Contac t Referred To Contact Diagnoses High risk medication use Procedures C REACTIVE PROTEIN Jerry Sams DO [address] [address] Referral ID Status Reason Start Date Expiration Date V isits Requested Visits Authorized [id number] New Request 02/26/2022 1 1 * Laboratory Services (Routine/Next Available) - New Request Specialty Diagnoses / Procedures [facility] Referred To Contact Diagnoses High risk medication use Procedures SED RATE Jerry Sams DO [address] [address] Referral ID Status Reason Start Date Expiration Date V isits Requested Visits Authorized [id number] New Request 02/26/2022 1 1 * Laboratory Services (Routine/Next Available) - New Request Specialty Diagnoses / Procedures [facility] Referred To Contact Diagnoses High risk medication use Procedures CREATININE Jerry Sams DO [address] [place] [phone] Referral ID Status Reason Start Date Expiration Date V isits Requested Visits Authorized [id number] New Request 02/26/2022 1 1 * Laboratory Services (Routine/Next Available) - New Request Specialty Diagnoses / Procedures Referred By Contkassandra shah Referred To Contact Diagnoses High risk medication use Procedures Jerry Mc DO [address] [place] [phone] Referral ID Status Reason Start Date Expiration Date V isits Requested Visits Authorized [id number] New Request 02/26/2022 1 1 * Laboratory Services (Routine/Next Available) - New Request Specialty Diagnoses / Procedures Referred By Salena shah Referred To Contact Diagnoses High risk medication use Procedures COMPLETE BLOOD COUNT AND DIFFERENTIAL Jerry Sams DO [address] [place] [phone] Referral ID Status Reason Start Date Expiration Date V isits Requested Visits Authorized [id number] New Request 02/26/2022 1 1 Reason for Visit * Reason Onset Date Comments Follow-up 02/26/[address] [facility] Encounter Details Date Type Department Care Team (Late st Contact Info) Description 02/26/2022 Orders Only [facility] [place] [address] Irish Barrera RN Abscess of left thigh [...] 1020 EDT Orders re-written and sent to [facility]. Weekly labs are cbc/d, BUN, Creatinine, Sed Rate, CRP also faxed. Order written for US of both thighs to be done week of . Has OPAT follow-up with Sylvie Olguin NP on 08/10/22. Also sent information on PICC insertion (02/18) at [facility]. documented in this encounter Plan of Treatment [...] 02/26/2022 documented in this encounter Care Teams Ceramic Coater Machine Relationship Specialty Start Date End Date Mariella Ramon MD [address] [place] [address] PCP - General Family Medicine - Primary Care 02/23/22 documented as of this encounter
--- OUTSIDE RECORDS SUMMARY | 2024-09-01 17:34 | XMS_ITS | Encounter Summary ---
Author Organization [facility] Address [address] [place] [address] Care Team Providers Care Active Directory Systems Administrator Name Role Phone Mariella Ramon MD Primary Care Provider [phone] Reason for Visit * Reason Comments Follow-up Encounter Details Date Type Department Care Team (Late st Contact Info) Description 03/20/2022 14:00 EDT Telemedicine [facility] Infectious Disease - [address] [address] Jerry Sams, DO [address] [facility], Level [address] [place] [address] MSSA bacteremia (Primary Dx) Social [...] 2 diabetes, sleep apnea, prolonged admission at [facility] for MSSA bacteremia that most likely resulted from diabetic foot ulcer and led to bilateral thigh abscesses. Please see initial ID note 26 February for fulldetails. Patient is on a 6-week course of IV Ancef which he will reach on 22 March. Since her last evaluation last month, patient was seen at [facility] 0 to March who performed drainage [...] MSSA 05 February blood cultures MSSA ([facility]) susceptible to Cipro, gentamicin, daptomycin, erythromycin, oxacillin, vancomycin 05 February blood cultures no growth 07 February blood cultures MSSA ( St ) 08 February blood cultures no growth 12 February right thigh abscess MSSA ([facility] 02 March left thigh fluid collection no growth Radiology: See official report below 02 march IR report from [facility] 1. The anterior left thigh collection [...] Patient given 2-month supply. Prescription phoned into [facility] in [facility]. 3. Repeat bilateral thigh ultrasound 5-6 weeks. 4. Repeat Zoom visit/phone call visit with me in about 6-7 weeks to review the results of the ultrasound. 5. We will fax my note to primary care provider so they can pull PICC line when he sees her on Wednesday. Dr Ramon [phone] It has been a pleasure seeing Mr. Ruiz in clinic today. Jerry Sams DO Pager [phone] Infectious Diseases documented in this encounter Plan of Treatment Not on file documented as of this encounter Visit Diagnoses Diagnosis MSSA bacteremia- Primary documented in this encounter Care Teams Active Directory Systems Administrator Relationship Specialty Start Date End Date Mariella Ramon MD [address] [place] [address] PCP - General Family Medicine - Primary Care 02/23/22 documented as of this encounter
--- OUTSIDE RECORDS SUMMARY | 2024-09-01 17:34 | XMS_ITS | Encounter Summary ---
Author Organization [facility] Address [address] [place] [address] Care Team Providers Care Head Of Business Development Name Role Phone Mariella Ramon MD Primary Care Provider [phone] Reason for Visit * Reason Comments Acute Illness * Consult (Routine) - Receiving Office to Obtain Authorization Specialty Diagnoses / Procedures Referred By Contac t Referred To Contact Infectious Disease Diagnoses MSSA bacteremia Thigh abscess Lizett Marmolejo MD [address] [place] [phone] [facility] Ep5 Infectious Disease [address] [place] [address] Referral ID Status Reason Start Date Expiration Date Visits Requested Visits Authorized [id number] Receiving Office to Obtain Authorization 1 1 Encounter Details Date Type Department Care Team (Late st Contact Info) Description 02/26/2022 9:30 EDT Office Visit [facility] Infectious Disease - [address] [id number] Jerry Sams DO 111 [facility] [address] [place] [address] Staph aureus infection (Primary Dx) [...] Complaint: Hospital follow-up care, initial visit with [facility] ID HPI: Mr. Ruiz is a 51 y.o. male with a history of type 2 diabetes, HLD, status post left Achilles tendon repair, and sleep apnea was referred to [facility] infectious diseases clinic in follow-up of a prolonged admission earlier this month at [facility] for MSSA bacteremia and a bilateral thigh abscess. Records are limited but during his admission, ID at [facility] was consulted over the phone for antibiotic recommendations and patient transported briefly down to [facility] for IR guided right thigh drain placement and then returned to [facility] same day. [facility] was not able to provide TETO in setting of high-grade MSSA bacteremia. Patient was discharged home and referred to the [facility] system for ID follow-up and a TETO. [...] R>L bilateral thigh abscesses. Patient transported to [facility] briefly [address] for IR guided drainage of the right abscess. The left abscess was deemed too small to require drainage. Patient had a surface echo that was unremarkable for endocarditis. His bacteremia cleared starting 08 February and after a brief course of ceftriaxone/vancomycin, then oxacillin, patient was transferred to [facility] with a plan for 4-6 weeks of IV antibiotics. Initially [facility] ID recommended TETO viaa phone consult but [facility] was unable to schedule patient for another month so upon discharge Apr, patient was scheduled to have follow-up with [facility] ID and then a TETO with [facility] cardiology. Currently, feels OK. No fevers, chills, night sweats. No nausea, vomiting or diarrhea. VNA visits weekly for dressing change on PICC. L thigh pain at site of known abcess is getting worse and making it difficult to walk. No other ortho or CARBON COATING MACHINE OPERATOR complaints. Pt R thigh pain has improved. Review of Systems: 10-point review of systems is negative except as noted in the HPI. Current antibiotics [facility] 12 February-present Prior antibiotics Vancomycin/ceftriaxone 05 February-08 [...] lift Relationships / Living Situation: Lives in [place], with . No kids Travel:Born [facility], came to [place] age 7. No overseas. Never lived anywhere [...] cultures MSSA 05 February blood cultures MSSA ([facility]) susceptible to Cipro, gentamicin, daptomycin, erythromycin, oxacillin, vancomycin 05 February blood cultures no growth 07 February blood cultures MSSA ( St ) 08 February blood cultures no growth 12 February right thigh abscess MSSA ([facility] Radiology: 12 February ultrasound-guided right lateral thigh [...] down to 3.4 cm diameter. IR at [facility] determined this abscess was too small to drain. 8. PICC line placed 18 February Assessment 1. MSSA bacteremia 05 February, 07 February. Blood cultures cleared on 08 February. Etiology of bacteremia unclear but suspect lesion on R foot (see photo) resulted in skin breakdown etc. Admitted at [facility] 05 February-19 February surface echo unremarkable, TETO pending at [facility] this week per report but pt waiting for insurance paper work. TETO recommended by [facility] ID via phone call based on records [...] have left a message with hospitalists in [facility] and placed a page as well, awaiting their return call to clarify that the u/s done near d/c (20 February) did show the L thigh abscessas still not drainable as pt is concerned due to continued pain. Will ask our ID supervisor front team totry to get this u/s result [...] very challenging. I dont think it will exchange teller with regards to length of therapy, we are going with 6 weeks anyway due to thigh abscess. For these reasons, I think we can hold off on the TETO. 5. Follow up with [facility] 10 March for OPAT safety review, then me 20 March to review u/s and make plans to convert to PO. 6. Letter given to today excusing her from work. 7. [employer] DM management per PCM It has been a pleasure seeing Mr. Ruiz in clinic today. Jerry Sams DO Pager [phone] Infectious Diseases documented in this encounter Plan [...] daily. added in this encounter Care Teams Head Of Business Development Relationship Specialty Start Date End Date Mariella Ramon MD [address] [place] [address] PCP - General Family Medicine - Primary Care 02/23/22 documented as of this encounter
--- OUTSIDE RECORDS SUMMARY | 2024-09-01 17:34 | XMS_ITS | Encounter Summary ---
Author Organization [facility] Address [address] [place] [address] Care Team Providers Care Home Health Lvn Name Role Phone Unknown, Provider Primary Care Provider Mariella Haq MD Primary Care Provider [phone] Encounter Details Date Type Department Care Team (Late st Contact Info) Description 02/06/2022 Lab Requisition [facility] Pathology & Laboratory Medicine - [address] [address] Outr Resulting Lab, Provider Social History Tobacco [...] Lyme Ab Negative Negative 02/09/2022 10:43 EDT [facility] Blood VENOUS BLOOD / Unknown 02/06/2022 8:25 EDT 02/06/2022 16:51 EDT Provider Outr Resulting Lab IMMUNOLOGY A ND SEROLOGY ORDERABLES [facility] [address] [place] [address] documented in this encounter Visit Diagnoses Not on filedocumented in this encounter Care Teams Home Health Lvn Relationship Specialty Start Date End Date Unknown, Provider, PCP - General 02/20/22 02/22/22 Mariella Ramon MD [address] [place] [phone] PCP - General Family Medicine - Primary Care 02/23/22 documented as of this encounter
--- OUTSIDE RECORDS SUMMARY | 2024-09-01 17:34 | XMS_ITS | Encounter Summary ---
Author Organization [facility] Address [address] [place] [address] Care Team Providers Care Open Hearth Melter Name Role Phone Mariella Ramon MD Primary Care Provider [phone] Reason for Visit * (Routine/Next Available) - Receiving Office to Obtain Authorization Specialty Diagnoses / Procedures Referred By Contac t Referred To Contact Procedures US OUTSIDE IMAGES BODY Unknown, Provider, MAIN Referral ID Status Reason Start Date Expiration Date Visits Requested Visits Authorized [id number] Receiving Office to Obtain Authorization 03/16/2022 1 1 Encounter Details Date Type Department Care Team (Latest Contact Info) Description 03/16/2022 11:06 EDT - 03/16/2022 23:59 EDT Hospital Encounter [facility] Secondary Reads [place] Discharge Disposition: Home [...] on filedocumented in this encounter Care Teams Open Hearth Melter Relationship Specialty Start Date End Date Mariella Ramon MD [address] [place] [address] PCP - General Family Medicine - Primary Care 02/23/22 documented as of this encounter
--- OUTSIDE RECORDS SUMMARY | 2024-09-01 17:34 | XMS_ITS | Encounter Summary ---
Author Organization [facility] [place] [address] Care Team Providers Care Perinatal Educator Name Role Phone Mariella Ramon MD Primary Care Provider [phone] Encounter Details Date Type Department Care Team (Late st Contact Info) Description 02/20/2022 11:05 AM EDT Ancillary Procedure Radiology Library at [facility] N[place] Brock [phone] Mariella Ramon MD [address] [place], [place] [phone] Social History Tobacco Use Types Packs/Day Years [...] Ramon MD G FILM LIBRARY ORD ERABLES [facility] [place] documented in this encounter Visit Diagnoses Not on filedocumented in this encounter Care Teams Perinatal Educator Relationship Specialty Start Date End Date Mariella Ramon MD [address] [place] [address] PCP - General Family Medicine 06/01/19 documented as of this encounter
--- OUTSIDE RECORDS SUMMARY | 2024-09-01 17:34 | XMS_ITS | Encounter Summary ---
Author Organization [facility] Address [address] [place] [address] Care Team Providers Care Bridges Supervisor Name Role Phone Jerry Ibrahim MD Primary Care Provider [phone] Unknown, Provider Primary Care Provider Mariella Haq MD Primary Care Provider [phone] Encounter Details Date Type Department Care Team (Late st Contact Info) Description 01/09/2020 Lab Requisition [facility] Pathology & Laboratory Medicine - [address] [address] Andi Farrell MD [address] [place] [address] [place] [address] Encounter for other general examination [...] Nodular plantar fibromatosis. See comment. 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 Deputy Sheriff Generalist/Bailiff slides of this case were reviewed at the intradepartmental consultation conference. 01/18/2020 9:47 [facility] Attestation There was significant resident/fellow involvement in the diagnostic evaluation of this case. By the signature below, the attending physician certifies that they have personally conducted a gross and/or microscopic examination of the described specimens and rendered or confirmed the above diagnosis. 01/18/2020 9:47 [facility] at 0947 Clinical History Mass arch right foot 01/18/2020 9:47 [facility] Gross Description Received in [...] Goins MD 01/09/2020 14:51 01/18/2020 9:47 EDT [facility] Resident/Fell ow: Sudarshan Goins MD 01/18/2020 9:47 T [facility] Scanned Images 01/18/2020 9:47 [facility] Tissue SOFT TISSUE / Unknown 01/08/2020 15:35 EDT 01/09/2020 9:47 EDT Andi Farrell MD PATHOLOGY ORDERABLES [facility] [address] [place] [address] documented in this encounter Visit Diagnoses Diagnosis Encounter for other general examination documented in this encounter Care Teams Bridges Supervisor Relationship Specialty Start Date End Date Jerry Ibrahim MD [address] [place] [address] PCP - General 11/01/19 02/11/20 Unknown, Provider, MD [address] [place] [address] PCP - General 02/20/22 02/22/22 Mariella Ramon MD [address] [place] [address] PCP - General Family Medicine - Primary Care 02/23/22 documented as of this encounter
--- OUTSIDE RECORDS SUMMARY | 2024-09-01 17:34 | XMS_ITS | Encounter Summary ---
Author Organization [facility] Address [address] [place] [address] Care Team Providers Care Museum Informatics Specialist Name Role Phone Mariella Ramon MD Primary Care Provider [phone] Reason for Visit * Reason Comments Follow-up Encounter Details Date Type Department Care Team (Late st Contact Info) Description 03/10/2022 9:00 EDT Telemedicine [facility] Infectious Disease - [address] [phone] Sylvie Olguin NP 111 [facility], Level [address] [place] [address] MSSA bacteremia (Primary Dx); Abscess [...] his Left thigh which was drained at [facility]- cultures did not grow anything.He [...] MSSA 05 February blood cultures MSSA ([facility]) susceptible to Cipro, gentamicin, daptomycin, erythromycin, oxacillin, vancomycin 05 February blood cultures no growth 07 February blood cultures MSSA ( [facility]) 08 February blood cultures no growth 12 February right thigh abscess MSSA ([facility]) Assessment/Plan MSSA Bactermia, blood cultures positive on the . Cleared on February 08. Currently on IV Cefazolin for a six week total. Tolerating it well. Left thigh abscess- drained at [facility], no growth on cultures. Will complete an ultrasound around03/17 at [facility] to determine if abscess has cleared. If [...] foot documented in this encounter Care Teams Museum Informatics Specialist Relationship Specialty Start Date End Date Mariella Ramon MD [address] [place] [address] PCP - General Family Medicine - Primary Care 02/23/22 documented as of this encounter
--- OUTSIDE RECORDS SUMMARY | 2024-09-01 17:34 | XMS_ITS | Encounter Summary ---
Author Organization [facility] Address [address] [place] [address] Care Team Providers Care Jacquard Card Lacer Name Role Phone Mariella Ramon MD Primary Care Provider [phone] Reason for Visit * Reason Onset Date Comments Pharmacy 03/23/2022 Encounter Details Date Type Department Care Team (Late st Contact Info) Description 03/23/2022 Telephone [facility] Infectious Disease - [address] [id number] Jerry Sams, DO 111 [facility], Level [address] [place] [address] Pharmacy Social History Tobacco Use [...] Encounter - Haven Bolanos RN - 03/23/2022 1206 EDT Confirmed with pt PICC was removed today by PCP per plan Advised pt that we did fax order for ultrasound to [facility]- he should wait to hear for scheduling, butcall if has not heard by end of week I contacted [facility] care to advise PICC is done, no longer need their services * Telephone Encounter - Payton Justice - 03/23/2022 1401 EDT Maria M from [facility] pharmacy states that end date of therapy was yesterday. Asking for plan. Would like a call back at [phone]. documented in this encounter Plan of Treatment Not on file documented as of this encounter Visit Diagnoses Not on filedocumented in this encounter Care Teams Jacquard Card Lacer Relationship Specialty Start Date End Date Mariella Ramon MD [address] [place] [address] PCP - General Family Medicine - Primary Care 02/23/22 documented as of this encounter
--- OUTSIDE RECORDS SUMMARY | 2024-09-01 17:34 | XMS_ITS | Encounter Summary ---
Author Organization [facility] Address [address] [place] [address] Care Team Providers Care Oil Field Equipment Mechanic Supervisor Name Role Phone Unavailable Primary Care Provider Unavailabl e Reason for Visit * Cardiology (Routine/Next Available) - New Request Specialty Diagnoses / Procedures Referred By Salena shah Referred To Contact Procedures OUTSIDE IMAGES FOR ARCHIVE - ECHO Imaging, External Referral ID Status Reason Start Date Expiration Date V isits Requested Visits Authorized [id number] New Request 02/18/2022 1 1 Encounter Details Date Type Department Care Team (Latest Contact Info) Description 02/09/2022 - 02/09/2022 23:59 EDT Hospital Encounter [facility] Radiology - Main [place] [address] [place] [address] Discharge Disposition: Home or Self Care Social [...]
--- OUTSIDE RECORDS SUMMARY | 2024-09-01 17:34 | XMS_ITS | Encounter Summary ---
Author Organization [facility] [place] [address] Care Team Providers Care Market Maker Name Role Phone Mariella Ramon MD Primary Care Provider [phone] Encounter Details Date Type Department Care Team (Late st Contact Info) Description 02/16/2022 8:45 PM EDT Ancillary Procedure Radiology Library at [facility] [place] [phone] Mariella Ramon MD [address] [place] [address] Social History Tobacco Use Types [...] Ramon MD IMG FILM LIBRARY ORD ERABLES [place], [place] documented in this encounter Visit Diagnoses Not on filedocumented in this encounter Care Teams Market Maker Relationship Specialty Start Date End Date Mariella Ramon MD [address] [place] [address] PCP - General Family Medicine 06/01/19 documented as of this encounter
--- OUTSIDE RECORDS SUMMARY | 2024-09-01 17:34 | XMS_ITS | Encounter Summary ---
Author Organization [facility] Address [address] [place] [address] Care Team Providers Care Finisher Hand Name Role Phone Unknown, Provider Primary Care Provider Mariella Haq MD Primary Care Provider [phone] Encounter Details Date Type Department Care Team (Late st Contact Info) Description 02/17/2022 Lab Requisition [facility] Pathology & Laboratory Medicine - [address] [address] Outr Resulting Lab, Provider Social History Tobacco [...] 81 - 157 mg/dL 02/18/2022 8:49 EDT [facility] Blood VENOUS BLOOD / Unknown 02/17/2022 6:10 EDT 02/17/2022 17:43 EDT Provider Outr Resulting Lab CHEMISTRY & BLOOD GAS ORDERABLES [facility] [address] [place] [address] documented in this encounter Visit Diagnoses Not on filedocumented in this encounter Care Teams Finisher Hand Relationship Specialty Start Date End Date Unknown, Provider, PCP - General 02/20/22 02/22/22 Mariella Ramon MD [address] [place] [address] PCP - General Family Medicine - Primary Care 02/23/22 documented as of this encounter
--- OUTSIDE RECORDS SUMMARY | 2024-09-01 17:34 | XMS_ITS | Encounter Summary ---
Author Organization [facility] Address [address] [place] [address] Care Team Providers Care Dtp Operator Name Role Phone Mariella Ramon MD Primary Care Provider [phone] Reason for Visit * Reason Onset Date Comments Other 03/12/2022 Encounter Details Date Type Department Care Team (Late st Contact Info) Description 03/12/2022 Telephone [facility] Infectious Disease - [address] [phone] Jerry Sams, DO 111 [facility], Level [address] [place] [address] Other Social History Tobacco Use [...] order and faxed it to Radiology at [facility] @ [phone]. 10:50 am Lino had already heard from scheduling in radiology. * Telephone Encounter - Nona Coffman MA - 03/12/2022 1010 EDT Received call from patient who states [facility] does not have US order and patient is unable to scheduleappointment for procedure. Patient would like a call back to discuss. documented in this encounter Plan of Treatment Not on file documented as of this encounter Visit Diagnoses Not on filedocumented in this encounter Care Teams Dtp Operator Relationship Specialty Start Date End Date Mariella Ramon MD [address] [place] [address] PCP - General Family Medicine - Primary Care 02/23/22 documented as of this encounter
--- OUTSIDE RECORDS SUMMARY | 2024-09-01 17:34 | XMS_ITS | Encounter Summary ---
Author Organization [facility] Address [address] [place] [address] Care Team Providers Care Contract Law Specialist Name Role Phone Mariella Ramon MD Primary Care Provider [phone] Reason for Visit * Reason Onset Date Comments Appointment Related 02/23/2022 Encounter Details Date Type Department Care Team (Late st Contact Info) Description 02/23/2022 Telephone [facility] Non-Invasive Cardiology - [facility] [address] [place], [place] [phone] Janae Ngo MD [address] [place] [address] Appointment Related Social History Tobacco Use Types [...] on filedocumented in this encounter Care Teams Contract Law Specialist Relationship Specialty Start Date End Date Mariella Ramon MD [address] [place] [address] PCP - General Family Medicine - Primary Care 02/23/22 documented as of this encounter
--- OUTSIDE RECORDS SUMMARY | 2024-09-01 17:34 | XMS_ITS | Encounter Summary ---
Author Organization [facility] [place] [address] Care Team Providers Care Stucco Mason Name Role Phone Mariella Ramon MD Primary Care Provider [phone] Encounter Details Date Type Department Care Team (Late st Contact Info) Description 02/07/2022 Ancillary Procedure Radiology Library at [facility] [place] NANCY Brock [phone] Mariella Ramon MD [address] [place], [place] [id number] Social History Tobacco Use Types Packs/Day Years [...] Lower Extremity (02/07/2022 12:00 AM EDT) Narrative [facility] - 02/16/2022 6:07 PM EDT This exam is auto-finalizing. It's purpose is for storage only. Mariella Ramon MD G FILM LIBRARY ORD ERABLES [place], [place] documented in this encounter Visit Diagnoses Not on filedocumented in this encounter Care Teams Stucco Mason Relationship Specialty Start Date End Date Mariella Ramon MD [address] [place] [address] PCP - General Family Medicine 06/01/19 documented as of this encounter
--- OUTSIDE RECORDS SUMMARY | 2024-09-01 17:34 | XMS_ITS | Clinical Summary ---
Author Organization [facility] [place] [address] Care Team Providers Care Cant Gang Sawyer Name Role Phone Mariella Ramon MD Primary Care Provider [phone] Allergies Active Allergy Reactions Criticality Noted Date [...] Status decision made by: Patient Care Teams Cant Gang Sawyer Relationship Specialty Start Date End Date Mariella Ramon MD [address] [place], [place] [address] PCP - General Family Medicine 06/01/19
--- OUTSIDE RECORDS SUMMARY | 2024-09-01 17:34 | XMS_ITS | Encounter Summary ---
Author Organization [facility] [place] [address] Care Team Providers Care Cook Roast Name Role Phone Mariella Ramon MD Primary Care Provider [phone] Encounter Details Date Type Department Care Team (Late st Contact Info) Description 02/09/2022 Ancillary Procedure Radiology Library at [facility] NANCY Brock [phone] Mariella Ramon MD [address] [place], [place] [phone] Social History Tobacco Use Types Packs/Day Years [...] Lower Extremity (02/09/2022 12:00 AM EDT) Narrative [facility] - 02/10/2022 8:41 AM EDT This exam is auto-finalizing. It's purpose is for storage only. Mariella Ramon MD G FILM LIBRARY ORD ERABLES [place], [place] documented in this encounter Visit Diagnoses Not on filedocumented in this encounter Care Teams Cook Roast Relationship Specialty Start Date End Date Mariella Ramon MD [address] [place] [address] PCP - General Family Medicine 06/01/19 documented as of this encounter
--- OUTSIDE RECORDS SUMMARY | 2024-09-01 17:34 | XMS_ITS | Encounter Summary ---
Author Organization [facility] Address [address] [place] [address] Care Team Providers Care Clinical Trials Assistant Name Role Phone Mariella Ramon MD Primary Care Provider [phone] Reason for Visit * (Routine/Next Available) - Receiving Office to Obtain Authorization Specialty Diagnoses / Procedures Referred By Contac t Referred To Contact Procedures US OUTSIDE IMAGES BODY Unknown, Provider, MAIN Referral ID Status Reason Start Date Expiration Date Visits Requested Visits Authorized [id number] Receiving Office to Obtain Authorization 05/01/2022 1 1 Encounter Details Date Type Department Care Team (Latest Contact Info) Description 05/01/2022 16:06 EDT - 05/01/2022 23:59 EDT Hospital Encounter [facility] Secondary [place] Discharge Disposition: Home or [...] on filedocumented in this encounter Care Teams Clinical Trials Assistant Relationship Specialty Start Date End Date Mariella Ramon MD [address] [place] [address] PCP - General Family Medicine - Primary Care 02/23/22 documented as of this encounter
--- OUTSIDE RECORDS SUMMARY | 2024-09-01 17:34 | XMS_ITS | Encounter Summary ---
Author Organization [facility] [place] [address] Care Team Providers Care Crystal Calibrator Name Role Phone Mariella Ramon MD Primary Care Provider [phone] Encounter Details Date Type Department Care Team (Late st Contact Info) Description 02/06/2022 Ancillary Procedure Radiology Library at [facility] NANCY Brock [phone] Mariella Ramon MD [address] [place], [place] [phone] Social History Tobacco Use Types Packs/Day Years [...] Ramon MD G FILM LIBRARY ORD ERABLES [facility] [place] documented in this encounter Visit Diagnoses Not on filedocumented in this encounter Care Teams Crystal Calibrator Relationship Specialty Start Date End Date Mariella Ramon MD [address] [place] [address] PCP - General Family Medicine 06/01/19 documented as of this encounter
--- OUTSIDE RECORDS SUMMARY | 2024-09-01 17:34 | XMS_ITS | Encounter Summary ---
Author Organization [facility] Address [address] [place] [address] Care Team Providers Care Supervisor Mold Construction Name Role Phone Unknown, Provider Primary Care Provider Mariella Haq MD Primary Care Provider [phone] Encounter Details Date Type Department Care Team (Late st Contact Info) Description 02/17/2022 Lab Requisition [facility] Pathology & Laboratory Medicine - [address] [address] Outr Resulting Lab, Provider Social History Tobacco [...] Surface Ag Negative Negative 02/19/20 10:41 EDT [facility] Hep B Surface Ab, Quantitative 4.4 See Note mIU/mL 02/18/2022 10:41 EDT [facility] Comment: Reference Range for Hep B Surface Ab, Quant: Positive: >= 10.0 mIU/mL Negative: ??< 10.0 mIU/mL Patient is presumed to not be immune to infection with Hepatitis B Virus. Hep B Surface Ab, Qualitative Negative See Note 02/18/2022 10:41 EDT [facility] Comment: Reference Range for Hep B Surface Ab, Qual: Unvaccinated: ??Negative Vaccinated: ??Positive Hepatitis B Core Ab, Total Negative Negative 02/18/2022 10:41 EDT [facility] Hep C Antibody Negative Negative 02/18/2022 10:41 EDT [facility] Blood VENOUS BLOOD / Unknown 02/17/2022 6:10 EDT 02/17/2022 17:43 EDT Provider Outr Resulting Lab CHEMISTRY & BLOOD GAS ORDERABLES Performing Organization Address City/State/[facility] Co de Phone Number [facility] [address] [place] [address] documented in this encounter Visit Diagnoses Not on filedocumented in this encounter Care Teams Supervisor Mold Construction Relationship Specialty Start Date End Date Unknown, Provider, PCP - General 02/20/22 02/22/22 Mariella Ramon MD [address] [place] [address] PCP - General Family Medicine - Primary Care 02/23/22 documented as of this encounter
--- OUTSIDE RECORDS SUMMARY | 2024-09-01 17:34 | XMS_ITS | Encounter Summary ---
Author Organization [facility] [place] [address] Care Team Providers Care Research Technologist Name Role Phone Mariella Ramon MD Primary Care Provider [phone] Encounter Details Date Type Department Care Team (Late st Contact Info) Description 02/10/2022 1:40 PM EDT Ancillary Procedure Radiology Library at [facility] [place] [phone] Mariella Ramon MD [address] [place], [place] [phone] Social History Tobacco Use Types Packs/Day Years [...] Ramon MD G FILM LIBRARY ORD ERABLES [place], [place] documented in this encounter Visit Diagnoses Not on filedocumented in this encounter Care Teams Research Technologist Relationship Specialty Start Date End Date Mariella Ramon MD [address] [place] [address] PCP - General Family Medicine 06/01/19 documented as of this encounter
--- OUTSIDE RECORDS SUMMARY | 2024-09-01 17:34 | XMS_ITS | Encounter Summary ---
[place] [address] Care Team Providers Care Binder Stripper Machine Name Role Phone Mariella Ramon MD Primary Care Provider [phone] Encounter Details Date Type Department Care Team (Late st Contact Info) Description 02/16/2022 [place] [address] Calvin Randolph MD [facility] [place] [address] Abscess of thigh Social History Tobacco Use [...] Consult Note Patient Name: Lino Ruiz : [id number] MR#: [id number] Greenberg at [facility] regarding the left thigh fluid collection being [...] Interventional & Diagnostic Radiology IR Team Pager: [phone] 02/17/2022 documented in this encounter H&P Notes * Calvin Randolph MD - 02/16/2022 6:29 PM EDT INTERVENTIONAL RADIOLOGY FOCUSED H&P and PRE-PROCEDURE NOTE: PCP: Mariella Ramon MD Referring Provider: Dr. Hanley at [facility]. Planned Procedure: Planned procedure: Left thigh drain [...] 2 diabetes, sleep apnea, recent admission to [facility] with MSSA bacteremia and UTI. MRI 02/09 showed bilateral thigh collections. Ultrasound 02/10 showed the right collection to be drainable but not the left. IR placed right-sided thigh drain on 02/12/2022. Patient is now readmitted at [facility] with increased pain, erythema, and tenderness of [...] All Drainage Procedures 02/12/2022 Wilfrido Rojo MD [facility] INTERVENTIONL RAD Medications: Current Outpatient Medications [...] foot documented in this encounter Care Teams Binder Stripper Machine Relationship Specialty Start Date End Date Mariella Ramon MD [address] [place] [address] PCP - General Family Medicine 06/01/19 documented as of this encounter
--- OUTSIDE RECORDS SUMMARY | 2024-09-01 17:34 | XMS_ITS | Encounter Summary ---
Author Organization Health system Address [address] [place] [address] Care Team Providers Care Lobby Porter Name Role Phone Mariella Ramon MD Primary Care Provider [phone] Reason for Referral * Cardiology (STAT) - Authorized Specialty Diagnoses / Procedures Referred By Contac t Referred To Contact Diagnoses Bacteremia due to Staphylococcus aureus Procedures TRANSESOPHAGEAL ECHO (TETO) ME ECHO HEART XTHORACIC,COMPLETE W DOPPLER Lizett Marmolejo MD [address] [place] [address] [facility] Referral ID Status Reason Start Date Expiration Date V isits Requested Visits Authorized [id number] Authorized 02/23/2022 10/31/2023 1 1 Encounter Details Date Type Department Care Team (Latest Contact Info) Description 02/23/2022 Transcribe Orders [facility] Cardiology - [address] [place] [address] Lizett Marmolejo MD [address] [place] [address] Bacteremia due to Staphylococcus aureus [...] Bacteremia documented in this encounter Care Teams Lobby Porter Relationship Specialty Start Date End Date Mariella Ramon MD [address] [place] [address] PCP - General Family Medicine - Primary Care 02/23/22 documented as of this encounter
--- OUTSIDE RECORDS SUMMARY | 2024-09-01 17:34 | XMS_ITS | Encounter Summary ---
Author Organization [facility] Address [address] [place] [address] Care Team Providers Care Regasification Plant Operator Name Role Phone Mariella Ramon MD Primary Care Provider [phone] Reason for Visit * Reason Onset Date Comments Follow-up 02/26/2022 Encounter Details Date Type Department Care Team (Late st Contact Info) Description 02/26/2022 Telephone [facility] Infectious Disease - [facility] [address] [place], [place] [address] Jerry Sams, [address] [facility], [address] [place] [address] Follow-up Social History Tobacco Use [...] J's IM placed out pt consult at [facility] to have it drained as out pt. Case d/w IR at [facility]. They have received the consult from IM at [facility] yesterday which was placed last week and will contact the patient to schedule IR drainage at [facility]. Pt and family given this information and were relieved. His phone number is correct in [facility] and he knowsto await call. Labs from 24 February reviewed, creat 0.9. WBC 4.63. We have taken over his OPAT ordersand lab review. Will see us via zoom/phone call and 20 March to follow up on micro cultures if [facility] IR is able to drain his L abscess. Pt is afebrile, well appearing and clinically stable so I don'tthink this warrants emergent drainage today. Pt and family comfortable with plan. documented in this encounter Plan of Treatment Not on file documented as of this encounter Visit Diagnoses Not on filedocumented in this encounter Care Teams Regasification Plant Operator Relationship Specialty Start Date End Date Mariella Ramon MD [address] [place] [address] PCP - General Family Medicine - Primary Care 02/23/22 documented as of this encounter
--- OUTSIDE RECORDS SUMMARY | 2024-09-01 17:34 | XMS_ITS | Encounter Summary ---
[place] [address] Care Team Providers Care Designer Name Role Phone Jerry Ibrahim MD Primary Care Provider [phone] Encounter Details Date Type Department Care Team (Late st Contact Info) Description 10/21/2013 Orders [place] [address] Edd Simmons MD [facility] [place] [address] Social History Tobacco Use Types Packs/Day Years [...] on filedocumented in this encounter Care Teams Designer Relationship Specialty Start Date End Date Jerry Ibrahim MD [address] [place], [place] [phone] PCP - General 09/23/10 05/31/19 documented as of this encounter
--- OUTSIDE RECORDS SUMMARY | 2024-09-01 17:34 | XMS_ITS | Encounter Summary ---
[place] [address] Care Team Providers Care Professor Of Marketing Name Role Phone Mariella Ramon MD Primary Care Provider Reason for Referral * Diagnostic Test (Routine) - Closed Specialty Diagnoses / Procedures Referred By Contac t Referred To Contact Radiology Diagnoses MSSA bacteremia Urinary tract infection without hematuria, site unspecified Abscess of thigh Pain of thigh, unspecified laterality Procedures IR All Drainage Procedures Navneet Murillo MD [address] [place] [address] [place] [address] Referral ID Status Reason Start Date Expiration Date V isits Requested Visits Authorized [id number] Closed Specialty Service Requested 02/12/2022 10/31/2022 1 1 Reason for Visit * Diagnostic Test (Routine) - Closed Specialty Diagnoses / Procedures Referred By Contac t Referred To Contact Radiology Diagnoses MSSA bacteremia Urinary tract infection without hematuria, site unspecified Abscess of thigh Pain of thigh, unspecified laterality Procedures IR All Drainage Procedures Navneet Murillo MD [address] [place] [address] [place] [address] Referral ID Status Reason Start Date Expiration Date V isits Requested Visits Authorized [id number] Closed Specialty Service Requested 02/12/2022 10/31/2022 1 1 Encounter Details Date Type Department Care Team (Latest Contact Info) Description 02/12/2022 9:23 AM EDT - 02/12/2022 11:59 PM EDT Hospital [place] [address] Navneet Murillo MD [address] [place] [address] MSSA bacteremia; Urinary tract infection without hematuria, [...] is during regular office hours, please call [phone]. If it is after regular office hours, or on weekends or holidays, please call [phone] and ask to speak to the Soliciting Freight Agent operations examiner for Interventional Radiology. XX You have received [...] data??Abscess/Wound Aspirate Culture Abscess; Leg, Right Order: [id number] Status: Final result ?? Visible to patient: No (not released) ?? Next appt: None ?? Specimen Information: Leg, Right; Abscess ?? 0 Result Notes Component 5 d ago Abscess/Wound Aspirate Culture Rare Staphylococcus aureus??Abnormal?? Gram Stain ??Abnormal?? Many Neutrophils seen Rare Gram Positive Cocci seen Organism Staphylococcus aureus??Abnormal?? Organism Gram Positive Cocci??Abnormal?? Resulting Agency [facility] Lab Susceptibility Staphylococcus aureus VITEK 2 METHOD Clindamycin Sensitive Erythromycin Sensitive Gentamicin Sensitive 1 Oxacillin Sensitive 2 Tetracycline Sensitive Trimethoprim/Sulfa Sensitive Vancomycin Sensitive ?? 1 Gentamicin is not appropriate for Barren-therapy. 2 Oxacillin (methicillin) susceptibility is a surrogate [...] Other Results from 02/12/2022 POCT Glucose Order: [id number] Status: Final result ?? Visible to patient: No (not released) ?? Next appt: None ?? 0 Result Notes Component Ref Range & Units 5 d ago POC Glucose 65 - 199 mg/dL 142 Comment: Supplemental ranges: <140 mg/dL before meals <180 mg/dL all other times of the day Resulting Agency [facility] Lab Specimen Collected: 02/12/22 10:16 Last Resulted: [...] ?? 1 Gentamicin is not appropriate for Barren-therapy. 2 Oxacillin (methicillin) susceptibility is a surrogate for the oral and parenteral cephalosporins, beta-lactam combination agents (amoxicillin-clavulanate, ampicillin-sulbactam and piperacillin-tazobactam) and carbapenem agents. ??It is NOT a surrogate for penicillin, ampicillin or piperacillin susceptibility. Linear View Reference Links Lab Handbook ?? Lab Information Lab unless otherwise noted: [facility] [address] Comb Fixer: Sierra Brandt M.D., M.Sc., F.R.C.Path ? Results Routing Details Abscess/Wound Aspirate Culture Abscess; Leg, Right (Order #[id number]) on 02/12/22 Base Name & eD-H Order Name Info Abscess/Wound Aspirate Culture Abscess; Leg, Right (Order #[id number]) on 02/12/22 Printer Friendly Result Report Printable Result Report * Julianne Hobbs RN - 02/12/2022 11:02 AM EDT [facility] Name: LINO RUIZ Date of : 1970 AGE: 51 y.o. Address: [address] [place] [address] (home) [phone] (work) Mobile: Telephone Information: Referring Provider: Navneet Murillo REASON FOR VISIT: U/S Guided Thigh Drain Placement Order Questions Answers Where will study be performed? [facility] Radiology [120] Is the patient on [...] DM and sleep apnea. Currently admitted to [facility] with MSSA bacteremia and UTI. [...] EDT) Abscess/Wound Aspirate Culture Rare Staphylococcus aureus(A) [facility] Gram Stain Many Neutrophils seen Rare Gram Positive Cocci seen (A) [facility] Organism Staphylococcus aureus(A) [facility] Organism Gram Positive Cocci(A) [facility] Abscess STRUCTURE OF RIGHT LOWER LIMB / Unknown 02/12/2022 11:42 AM EDT 02/12/2022 12:23 PM EDT Narrative Resulting Agency Comment Spec In Lab Organism Antibiotic Method Susceptibility Staphylococcus aureus Clindamycin VITEK 2 METHOD Sensitive Staphylococcus aureus Erythromycin VITEK 2 METHOD Sensitive Staphylococcus aureus Gentamicin VITEK 2 METHOD Sensitive Comment:Gentamicin i s not appropriate for Barren-therapy. Staphylococcus aureus Oxacillin VITEK 2 METHOD Sensitive [...] - GENER AL ORDERABLES Performing Organization Address City/[facility]/ZIP Co de Phone Number [facility] [place] [address] * POCT Glucose (02/12/2022 10:16 AM EDT) Glucose, POC 142 65 - 199 mg/dL [facility] Comment: Supplemental ranges: <140 mg/dL before meals <180 mg/dL all other times of the day Blood 02/12/2022 10:1 6 AM EDT 02/12/2022 10:16 AM EDT Navneet Murillo MD POINT OF CARE TEST O RDERABLES Performing Organization Address [facility]/ZIP Co de Phone Number [facility] [place] [address] documented in this encounter Visit Diagnoses Diagnosis [...] mLs documented in this encounter Care Teams Professor Of Marketing Relationship Specialty Start Date End Date Mariella Ramon MD [address] [place] [address] PCP - General Family Medicine 06/01/19 documented as of this encounter
[2024-09-01 17:51] LABS: Abs Immature Grans 0.02 10^3/uL (0.0-0.06); Absolute Basophil Count 0.07 10^3/uL (0.0-0.2); Absolute Eosinophil Count 0.05 10^3/uL (0.0-0.7); Absolute Lymphocyte Count 0.96 10^3/uL (1.2-3.4); Absolute Monocyte Count 0.72 10^3/uL (0.1-0.8); Absolute Neutrophil Count 8.52 10^3/uL (1.2-6.7); Basophils % 0.7 %; Eosinophils % 0.5 %; Immature Grans % 0.2 %; Lymphocytes % 9.3 %; MCH 31.5 pg (27.0-33.0); MCHC 35.4 % (32.0-36.0); MCV 89 fL (80-95); MPV 9.9 fL (8.0-11.0); Neutrophils % 82.3 %; Platelet Count 205 10^3/uL (130-400); RBC 5.39 10^6/uL (4.36-5.78); RDW 12.2 % (11.8-14.1); RDW-SD 39.2 fL; WBC 10.34 10^3/uL (4.4-10.8)
[2024-09-01] MEDS: Ondansetron 4 MG/2 ML VIAL IVP (18:00)
[2024-09-01 18:06] LABS: ALT 16 U/L (16-63); AST 25 U/L (15-37); Albumin 3.6 g/dL (3.4-5.0); Alkaline Phosphatase 104 U/L (46-116); Anion Gap 10.8 mmol/L (3-11); BUN 12 mg/dL (7-18); Bilirubin, Total 0.75 mg/dL (0.2-1.0); CO2 27.2 mmol/L (21.0-32.0); CREATININE 1.3 mg/dL (0.70-1.30); Calcium 9.3 mg/dL (8.5-10.1); Chloride 99 mmol/L (98-107); Glucose 362 mg/dL (74-106); Magnesium 1.6 mg/dL (1.8-2.4); Potassium 4.6 mmol/L (3.5-5.1); Sodium 137 mmol/L (136-145); Total Protein 7.6 g/dL (6.4-8.2)
--- NOTE | 2024-09-01 18:21 | ED.GENADUL_ITS ---
Discharge Plan Disposition Patient Disposition: Home Condition: Stable Discharge Details Clinical Impression: Cough, Nausea and vomiting, Hypertension, Type 2 diabetes mellitus Primary Care Provider: Jerry Ibrahim ED Provider: Maggie Thomas Home Meds and New Rx's Prescriptions: New benzonatate 200 mg capsule 200 mg PO TID PRNQty: 10 0RF No Action magnesium oxide 400 mg (241.3 mg magnesium) tablet 200 mg PO DAILY losartan-hydrochlorothiazide 100-25 mg tablet 1 tab PO DAILY polyethylene glycol 3350 17 gram/dose powder 17 g PO ONCE Qty: 238 0RF Rx Instructions: Take per colonoscopy instructions provided by ordering providers office terazosin 5 mg capsule 5 mg PO QHS valacyclovir 500 mg tablet 500 mg PO BID Patient Comments: pt reports not taking anymore albuterol sulfate [Ventolin HFA] 90 mcg/actuation HFA aerosol inhaler 2 puff IH Q4H PRN sertraline [Zoloft] 50 mg tablet 50 mg PO DAILY methocarbamol 1,000 mg tablet 1,000 mg PO QID meloxicam 15 mg tablet 15 mg PO DAILY Levemir U-100 Insulin 100 unit/mL solution 80 unit SC QHS Patient Comments: 40 U HS 7/18 metformin [Glucophage] 1,000 MG tablet 1,000 mg PO BID@0800,1700 gabapentin 300 MG capsule 600 mg PO BID amlodipine 5 mg tablet 10 mg PO DAILY epinephrine [EpiPen 2-Moiz] 0.3 mg/0.3 mL auto-injector 0.3 ml IM ONCE Qty: 2 0RF Rx Instructions: as a single dose; may repeat once Discharge Instructions Instructions: Cough, Adult ED Additional Instructions: You were seen in the emergency department today for evaluation of a cough with nausea and vomiting. In our department you had a full physical examination performed, had laboratory studies that were reassuring. Your COVID and flu test was negative, and your x-ray shows no sign of pneumonia. You likely have a persistent viral infection, which unfortunately has to go away on its own time. He can maintain good hydration and nutrition, use [id number]-bgawfxq medications as needed for symptoms, I have prescribed you a medication called Tessalon Perles to help with your cough. Other patients sometimes find relief with cough drops, honey, and tea. Please follow-up with your primary care provider in the next few days to discuss this visit and any symptoms that change, worsen, or persist. Thank you for al lowing us to be part of your care. HPI General Date/Time Provider Initiated Documentation: 09/01/24 17:22 . Limitations to Documentation: no limitations . Information obtained by: patient and old records reviewed . HPI Narrative: HPI: This is a 54-year-old male patient with a past medical history of hypertension, diabetes, and history of pneumonia in the past, who is presenting for evaluation of 2 weeks of cough. He reports that he started coughing at that time and was doing quite well, but his coughing has worsened and today he developed nausea with vomiting. He did have an episode of diarrhea today, st ates that sometimes his vomiting occurs directly after a coughing fit, but not always. States that he has tried qakz-fcn-gseizni Robitussin without improvement. Had subjective fevers last night, did not measure temperature today and has not taken any antipyretics. The patient reports that he has not noted any significant increase in his work of breathing when he is not coughing, denies chest pain. Reports that he feels like he has mucus but is having difficulty getting it up. Exam: Gen: Awake and alert, in no apparent distress HEENT: Non-icteric sclera Neck: Supple Lungs: No apparent respiratory distress, normal respiratory effort. The patient has a frequent dry cough during this provider's examination. Lung sounds clear and equal CV: Appears well perfused, heart with regular rate and rhythm, strong distal pulses Abdomen: Non-distended, soft, nontender MSK: Moves 4 extremities without apparent limitation in ROM Skin: Visualized skin without rashes, cyanosis. Neuro: Normal Gait, no obvious focal deficits or facial asymmetry. Speaks in full, clear sentences. Psych: Appropriate for situation. MDM: This is a 54-year-old male patient presenting for evaluation of cough and nausea with vomiting and diarrhea. My differential includes but is not limited to viral upper respiratory infection, bronchitis, pneumonia. I considered reactive airway disease exacerbation, pulmonary edema, pleural effusion, pneumothorax of this is less consistent with the patient's history and physical examination. He has not had any exposures to unvaccinated individuals to increase my concern for pertussis. I considered viral syndrome, gastritis, hepatitis, cholecystitis, appendicitis, diverticulitis, gastroenteritis, though the patient's abdominal examination is quite benign and I suspect the vomiting is likely secondary to his acute cough. I will provide the patient with a dose of Zofran for additional management of nausea. Will obtain a chest x-ray, and laboratory studies to include CBC, CMP, magnesium, and a COVID/influenza test ED Course: COVID and influenza testing negative, the patient has no leukocytosis, anemia or thrombocytopenia. Chemistry panel without electrolyte d erangement other than hyperglycemia consistent history of diabetes. No evidence of renal dysfunction or liver disease. Independently interpreted the patient's chest x-ray, which shows no signs of concerning lobar consolidation suggestive of pneumonia, nor other abnormalities to account for his symptoms. On reassessment the patient has had improvement in his vomiting, and we discussed conservative management of coughing including axxl-nfa-ydxjraf medications, honey, tea, and good hydration. I provided him with a take-home dose of Zofran as well as a prescription for Tessalon Perles. Encouraged the patient to follow-up with his primary care provider next few days for reassessment. At this time, the patient has had a full medical evaluation and is safe for discharge to home. They are hemodynamically stable, ambulatory, and tolerating PO. They are understanding of the follow-up plan and return precautions. They left our facility without incident. Maggie Thomas MD Related Data Home Medications ?Medication ?Instructions ?Recorded ?Confirmed metformin 1,000 mg tablet 1,000 mg PO BID@0800,1700 05/02/13 08/20/24 (Glucophage) gabapentin 300 mg capsule 600 mg PO BID 09/22/13 08/20/24 albuterol sulfate 90 mcg/actuation 2 puff inhalation Q4H PRN 12/04/19 08/20/24 aerosol inhaler (Ventolin HFA) sertraline 50 mg tablet (Zoloft) 50 mg PO DAILY 12/04/19 08/20/24 terazosin 5 mg capsule 5 mg PO QHS 12/04/19 08/20/24 valacyclovir 500 mg tablet 500 mg PO BID 12/04/19 08/20/24 amlodipine 5 mg tablet 10 mg PO DAILY 12/13/19 08/20/24 losartan 100 1 tab PO DAILY 12/13/19 08/20/24 mg-hydrochlorothiazide 25 mg tablet magnesium oxide 400 mg (241.3 mg 200 mg PO DAILY 12/13/19 08/20/24 magnesium) tablet meloxicam 15 mg tablet 15 mg PO DAILY 08/31/23 08/20/24 methocarbamol 1,000 mg tablet 1,000 mg PO QID 08/31/23 08/20/24 insulin detemir U-100 100 unit/mL 80 unit subcut QHS 04/27/24 08/20/24 subcutaneous solution (Levemir U-100 Insulin) polyethylene glycol 3350 17 17 g PO ONCE #238 grams 04/27/24 08/20/24 gram/dose oral powder epinephrine 0.3 mg/0.3 mL 0.3 ml IM ONCE #2 ea 08/20/24 injection, auto-injector (EpiPen 2-Moiz) benzonatate 200 mg capsule 200 mg PO TID PRN #10 caps 09/01/24 Previous Rx's ?Medication ?Instructions ?Recorded polyethylene glycol 3350 17 17 g PO ONCE #238 grams 04/27/24 gram/dose oral powder epinephrine 0.3 mg/0.3 mL 0.3 ml IM ONCE #2 ea 08/20/24 injection, auto-injector (EpiPen 2-Moiz) benzonatate 200 mg capsule 200 mg PO TID PRN #10 caps 09/01/24 Allergies Allergy/AdvReac Type Severity Reaction Status Date / Time venom-honey bee Allergy Severe Anaphylaxis Verified 09/01/24 17:26 lisinopril AdvReac Mild Other (See Verified 09/01/24 17:26 Comment) General Stated Complaint: Nausea/Vomit/Diar KALIN: 3 Course Vital Signs Vital signs: Vital Signs Temperature 36.7 C 09/01/24 17:22 Pulse 90 09/01/24 17:22 Respiratory Rate 18 09/01/24 17:22 Blood Pressure 154/102 H 09/01/24 17:22 Pulse Oximetry 98 09/01/24 17:22 Temperature 36.7 C 09/01/24 17:22 Temperature Source Temporal Artery Scan 09/01/24 17:22 Pulse 90 09/01/24 17:22 Respiratory Rate 18 09/01/24 17:22 Respiratory Effort Normal, Non-Labored 09/01/24 17:26 Blood Pressure 154/102 H 09/01/24 17:22 Blood Pressure Position Sitting 09/01/24 17:22 Pulse Oximetry 98 09/01/24 17:22 Oxygen Delivery Method Room Air 09/01/24 17:22 Oxygen Flow Rate 0 09/01/24 17:22 Lab/Test Results Lab/Test Results: Laboratory Tests Range/Units 09/01/24 17:45 WBC (4.4-10.8) 10^3/uL 10.34 RBC (4.36-5.78) 10^6/uL 5.39 Hgb (13.5-17.5) g/dL 17.0 Hct (40.0-50.0) % 48.0 MCV (80-95) fL 89 MCH (27.0-33.0) pg 31.5 MCHC (32.0-36.0) % 35.4 RDW (11.8-14.1) % 12.2 Plt Count (130-400) 10^3/uL 205 MPV (8.0-11.0) fL 9.9 Immature Gran % % 0.2 Neutrophils % % 82.3 Lymphocytes % % 9.3 Monocytes % % 7.0 Eosinophils % % 0.5 Basophils % % 0.7 Nucleated RBC % (0.0-0.3) % 0.0 Absolute Neutrophils (1.2-6.7) 10^3/uL 8.52 H Absolute Lymphocytes (1.2-3.4) 10^3/uL 0.96 L Absolute Monocytes (0.1-0.8) 10^3/uL 0.72 Absolute Eosinophils (0.0-0.7) 10^3/uL 0.05 Absolute Basophils (0.0-0.2) 10^3/uL 0.07 Sodium (136-145) mmol/L 137 Potassium (3.5-5.1) mmol/L 4.6 Chloride (98-107) mmol/L 99 Carbon Dioxide (21.0-32.0) mmol/L 27.2 Anion Gap (3-11) mmol/L 10.8 BUN (7-18) mg/dL 12 Creatinine (0.70-1.30) mg/dL 1.3 Est GFR (CKD-EPI 2020) (mL/min/1.73m2) 66.10 Glucose (74-106) mg/dL 362 H Calcium (8.5-10.1) mg/dL 9.3 Magnesium (1.8-2.4) mg/dL 1.6 L Total Bilirubin (0.2-1.0) mg/dL 0.75 AST (15-37) U/L 25 ALT (16-63) U/L 16 Alkaline Phosphatase (46-116) U/L 104 Total Protein (6.4-8.2) g/dL 7.6 Albumin (3.4-5.0) g/dL 3.6 Medical Decision Making Quality:SDOH Health Related Social Needs: No Data to Display PFSH All Active Problems (Updated 09/01/24 @ 18:33 by Maggie Thomas MD) Nausea and vomiting (Acute) Cough (Acute) Anaphylaxis (Acute) Encounter for screening colonoscopy (Acute) Ulcer of other part of foot (Acute) Hematuria (Acute) Abscess of leg, right (Acute) Abscess of left thigh (Acute) Abscess of right thigh (Acute) Herniation of intervertebral disc between L5 and S1 (Acute) Type 2 diabetes mellitus (Chronic) Achilles rupture, left (Acute) Plantar fascial fibromatosis (Acute) Subcutaneous mass of right foot (Acute) plantar aspect Hypertension (Chronic) Depression (Chronic) Herpes, genital (Acute) Overweight (Acute) Diabetic retinopathy, background (Acute) Neck pain, chronic (Acute) Diabetic peripheral neuropathy (Acute) Night sweats (Acute) Tinea pedis (Acute) Preventative health care (Acute) Cough (Acute) Sexual dysfunction (Acute) Bronchial pneumonia (Acute) Syncope (Chronic) Tendonitis, Achilles, right (Acute) Medical History (Updated 09/01/24 @ 18:33 by Maggie Thomas MD) Tubular adenoma of colon (~05/2024) Family hx of colon cancer Brother Sleep apnea does not use device Diabetes Surgical History (Updated 05/23/24 @ 07:47 by Urmila Bundy) History of colonoscopy (~05/2024) Hx of foot surgery Hx of wisdom tooth extraction Hx of arthroscopy of shoulder Hx of elbow surgery torn tendon History of nasal surgery H/O arthroscopic knee surgery Family History (Updated 04/27/24 @ 13:47 by ERIC Evans) Brother Colon cancer Social History Smoking/Tobacco Use Status: Never Smoking risk assessment performed?: Yes Alcohol Intake: current Alcohol Intake frequency: holidays/special occasions only Alcohol type: beer Drug use: Never Substance use type: does not use Household members: none Housing: house Number of Children: 0 current occupation: employed - [employer]. Current gender identity: male Additional Social history: [employer]
[2024-09-01] MEDS: Ondansetron O.D.T. 4 MG TABEF, 3 TABS/BTL PO (18:47)
[2024-09-01] MEDS: Benzonatate 100 MG CAP PO (18:47)
== END 2024-09-01 18:50 | disposition home or self-care (01) ==
PROVIDERS: Emergency Provider Emergency Medicine; PCP Internal Medicine
DX: R05.9 Cough, unspecified (principal); R11.2 Nausea with vomiting, unspecified; E11.9 Type 2 diabetes mellitus without complications; I10 Essential (primary) hypertension; Z79.4 Long term (current) use of insulin; Z79.84 Long term (current) use of oral hypoglycemic drugs; Z87.01 Personal history of pneumonia (recurrent)
CPT/HCPCS: 36415; 80053; 87426; 96374; 99285; 71046; 83735; 85025; 99284; J2405

== ENCOUNTER 2024-09-06 12:42 | Outpatient (CLI) | payer BC, SELFPAY ==
--- OUTSIDE RECORDS SUMMARY | 2024-09-06 12:44 | XMS_ITS ---
Author Organization Unknown Address [address] [place] [address] [phone] Phone Care Team Providers Care Gas Plumber Name Role Phone DAVE Meza Attending Unavailable [...] Status Co de Code System LISINOPRIL Active 77446 RxNorm Plan of Treatment MRI LOWER EXT W/O CONTRAST 08/06/2023 Encounters Encounter Diagnosis Start Date Code Code Sys tem Chronic ulcer of foot 06/03/2023 [id number] SNOMED -CT Personal Care Team Section Performer Name Performer Role Active Date Inactive Da suresh
--- OUTSIDE RECORDS SUMMARY | 2024-09-06 12:44 | XMS_ITS ---
Author Organization Unknown Address [address] [place] [address] [phone] Phone Care Team Providers Care Director Of Operations For Therapy Name Role Phone DAVE Meza Attending Unavailable [...] Status Co de Code System LISINOPRIL Active 66681 RxNorm Plan of Treatment MRI LOWER EXT W/O CONTRAST 08/06/2023 Encounters Encounter Diagnosis Start Date Code Code Sys tem Chronic ulcer of foot 05/25/2023 221487046 SNOMED -CT Personal Care Team Section Performer Name Performer Role Active Date Inactive Da suresh
--- OUTSIDE RECORDS SUMMARY | 2024-09-06 12:45 | XMS_ITS ---
Author Organization Unknown Address [address] [place] [address] [phone] Phone Care Team Providers Care Pulmonologist Intensivist Name Role Phone DAVE Meza Attending Unavailable LOLA Herr Primary Unavailable Results XR TOE(S) 2V OR MORE LT* - C ompleted: 06/30/2023 14:40 [facility] [place], [place] [address] PACS IRRIGATION FOREMAN REPORT Patient Name: LUDY JARA MRN: Sex: : Age: [id number] M 1970 53 Account: Accession: Admit: StayType: [id number] 06/30/2023 CLINIC Ordered: Order ID: Submitted: Ordering Provider: 06/30/2023 14:28 [id number] [facility] MARTY ACOSTA Completed: Technologist: Resulted: 06/30/2023 14:40 [facility] 06/30/2023 15:15 Study Description: XR TOES [...] Status Co de Code System LISINOPRIL Active 95821 RxNorm Plan of Treatment MRI LOWER EXT W/O CONTRAST 08/06/2023 Encounters Encounter Diagnosis Start Date Code Code Sys tem Chronic ulcer of foot 06/30/2023 [id number] SNOMED -CT Personal Care Team Section Performer Name Performer Role Active Date Inactive Da te
--- OUTSIDE RECORDS SUMMARY | 2024-09-06 12:45 | XMS_ITS ---
Author Organization Unknown Address [address] [place] [phone] Phone Care Team Providers Care Surface Grinder Tender Name Role Phone DAVE Meza Attending Unavailable LOLA Herr Primary Unavailable Results HEMOGLOBIN A1C* - Collect Da te/Time: 06/30/2023 15:23 [facility] ID: [id number] [address] [place] [address], [address] LOINC: 4548-4 Test Value Unit Reference Range Code Code System Flag Hgb A1c 9.3 % L=3.8 H=5.7 4548-4 LOINC H MEAN BLOOD GLUCOSE 224 mg/dL 49440-3 LOINC COMPREHENSIVE METABOLIC PANE L (CMP) - Collect Date/Time: 06/30/2023 15:23 [facility] ID: [id number] [address] [place] [address], [address] LOINC: 73017-1 Test Value Unit Reference Range Code Code [...] H=34 2028-9 LOINC ANION GAP 6.0 mmol/L 08115-6 LOINC CALCIUM SERUM 9.0 mg/dL L=8.2 H=10.2 98270-3 LOINC BILIRUBIN TOTAL 0.6 mg/dL L=0.0 H=1.3 1975-2 LOINC ALK. PHOS. 86 U/L L=46 H=116 6768-6 LOINC SGOT (AST) 19 U/L L=15 H=37 1920-8 LOINC SGPT (ALT) 13 U/L L=12 H=78 1742-6 LOINC TOTAL PROTEIN 7.0 gm/dL L=6.0 H=8.0 2885-2 LOINC ALBUMIN 3.5 gm/dL L=3.4 H=5.0 1751-7 LOINC AGE 53 years eGFR (non-Afr.Amer.) 51 mL/min 81424-2 LOINC eGFR (Afr-Citizen Of [place]) 62 mL/min 25841-6 LOINC Social History Type Status Start Date [...] Status Co de Code System LISINOPRIL Active 45357 RxNorm Plan of Treatment MRI LOWER EXT W/O CONTRAST 08/06/2023 Encounters Encounter Diagnosis Start Date Code Code Sys tem Non-pressure chronic ulcer o f other part of left foot with fat layer exposed 06/30/2023 SNOMED-CT Personal Care Team Section Performer Name Performer Role Active Date Inactive Da te
--- OUTSIDE RECORDS SUMMARY | 2024-09-06 12:45 | XMS_ITS ---
Author Organization Unknown Address [address] [place] [address] [phone] Phone Care Team Providers Care Entertainment Dancer Name Role Phone DAVE Meza Attending Unavailable [...] Status Co de Code System LISINOPRIL Active 06124 RxNorm Plan of Treatment MRI LOWER EXT W/O CONTRAST 08/06/2023 Encounters Encounter Diagnosis Start Date Code Code Sys tem Chronic ulcer of foot 06/16/2023 541259808 SNOMED -CT Personal Care Team Section Performer Name Performer Role Active Date Inactive Da suresh
--- OUTSIDE RECORDS SUMMARY | 2024-09-06 12:46 | XMS_ITS ---
Author Organization Unknown Address [address] [place] [address] [phone] Phone Care Team Providers Care Cash Teller Name Role Phone DAVE Meza Attending Unavailable LOLAPIERRE FARRAR Nemesio Primary Unavailable Results GRAM STAIN* - Collect Date/T vito: 08/02/2023 15:05 [facility] ID: [id number] [address] [place] [address], [id number] LOINC: 664-3 Test Value Unit Reference Range [...] Status Co de Code System LISINOPRIL Active 82703 RxNorm Plan of Treatment MRI LOWER EXT W/O CONTRAST 08/06/2023 Encounters Encounter Diagnosis Start Date Code Code Sys tem Acute osteomyelitis of ankle and/or foot 08/02/2023 039751083 SNOMED-CT Personal Care Team Section Performer Name Performer Role Active Date Inactive Da te
--- OUTSIDE RECORDS SUMMARY | 2024-09-06 12:46 | XMS_ITS ---
Author Organization Unknown Address [address] [place] [address] [phone] Phone Care Team Providers Care Coding Auditor Name Role Phone DAVE Meza Attending Unavailable [...] Status Co de Code System LISINOPRIL Active 99648 RxNorm Plan of Treatment MRI LOWER EXT W/O CONTRAST 08/06/2023 Encounters Encounter Diagnosis Start Date Code Code Sys tem Canceled operative procedure 08/03/2023 62754812 SNOMED-CT Personal Care Team Section Performer Name Performer Role Active Date Inactive Da suresh
--- OUTSIDE RECORDS SUMMARY | 2024-09-06 12:46 | XMS_ITS ---
Author Organization Unknown Address [address] [place] [address] [phone] Phone Care Team Providers Care Hand Ii Blocker Name Role Phone DAVE Meza Attending Unavailable LOLA Herr Primary Unavailable Results XR TOE(S) 2V OR MORE LT* - C ompleted: 07/28/2023 15:54 [facility]: [place], [place] [address] PACS PROPERTY AND CASUALTY INSURANCE AGENT REPORT Patient Name: LUDY JARA MRN: Sex: : Age: [id number] M 1970 53 Account: Accession: Admit: StayType: [id number] 07/28/2023 CLINIC Ordered: Order ID: Submitted: Ordering Provider: 07/28/2023 14:41 [id number] [facility] MARTY ACOSTA Completed: Technologist: Resulted: 07/28/2023 [...] Status Co de Code System LISINOPRIL Active 50594 RxNorm Plan of Treatment MRI LOWER EXT W/O CONTRAST 08/06/2023 Encounters Encounter Diagnosis Start Date Code Code Sys tem Chronic ulcer of foot 07/28/2023 [id number] SNOMED -CT Personal Care Team Section Performer Name Performer Role Active Date Inactive Da te
--- OUTSIDE RECORDS SUMMARY | 2024-09-06 12:46 | XMS_ITS ---
Author Organization Unknown Address [address] [place] [address] [phone] Phone Care Team Providers Care Motor Coach Tour Operator Name Role Phone DAVE Meza Attending Unavailable LOLA Herr Primary Unavailable Results XR TOE(S) 2V OR MORE LT* - C ompleted: 07/14/2023 15:31 [facility]: [place], [place] [address] PACS SUPERVISOR GROUNDS REPORT Patient Name: LUDY JARA MRN: Sex: : Age: [id number] M 1970 53 Account: Accession: Admit: StayType: [id number] 07/14/2023 CLINIC Ordered: Order ID: Submitted: Ordering Provider: 07/14/2023 15:01 [id number] EXC MARTY ACOSTA Completed: Technologist: Resulted: 07/14/2023 [...] Status Co de Code System LISINOPRIL Active 35525 RxNorm Plan of Treatment MRI LOWER EXT W/O CONTRAST 08/06/2023 Encounters Encounter Diagnosis Start Date Code Code Sys tem Chronic ulcer of foot 07/14/2023 248012279 SNOMED -CT Personal Care Team Section Performer Name Performer Role Active Date Inactive Da te
--- OUTSIDE RECORDS SUMMARY | 2024-09-06 12:47 | XMS_ITS ---
Author Organization Unknown Address [address] [place] [address] [phone] Phone Care Team Providers Care Can Conveyor Feeder Name Role Phone DAVE Meza Attending Unavailable [...] Status Co de Code System LISINOPRIL Active 11189 RxNorm Plan of Treatment MRI LOWER EXT W/O CONTRAST 08/06/2023 Encounters Encounter Diagnosis Start Date Code Code Sys tem Acute osteomyelitis of ankle and/or foot 08/09/2023 870213649 SNOMED-CT Personal Care Team Section Performer Name Performer Role Active Date Inactive Da suresh
--- OUTSIDE RECORDS SUMMARY | 2024-09-06 12:47 | XMS_ITS ---
Author Organization Unknown Address [address] [place] [address] [phone] Phone Care Team Providers Care Collar Shaper Operator Name Role Phone DAVE Meza Attending Unavailable LOLA Herr Primary Unavailable Results MR LOWER EXT NOT JOINT LT WO CONTRAST - Completed: 08/06/2023 11:40 LOINC: [facility] [place], [place] [address] PACS CREPING MACHINE OPERATOR REPORT Patient Name: LUDY JARA MRN: Sex: : Age: [id number] M 1970 53 Account: Accession: Admit: StayType: [id number] 08/06/2023 E/R Ordered: Order ID: Submitted: Ordering Provider: 08/06/2023 10:54 [id number] [facility] MARTY ACOSTA Completed: Technologist: Resulted: 08/06/2023 [...] Status Co de Code System LISINOPRIL Active 08020 RxNorm Plan of Treatment MRI LOWER EXT W/O CONTRAST 08/06/2023 Encounters Encounter Diagnosis Start Date Code Code Sys tem Osteomyelitis, unspecified 08/06/2023 S NOMED-CT Personal Care Team Section Performer Name Performer Role Active Date Inactive Da te
--- OUTSIDE RECORDS SUMMARY | 2024-09-06 12:47 | XMS_ITS ---
Author Organization Unknown Address [address] [place] [address] [phone] Phone Care Team Providers Care Dietary Tech Name Role Phone DAVE Meza Attending Unavailable RUPERT Montenegro EAR SPECIALIST Unavailable LOLA Herr Primary Unavailable Results CULT ANAEROBIC ([facility]) CULTU RE - Collect Date/Time: 08/12/2023 08:46 [facility] ID: [id number] [address] [place] [address], [id number] LOINC: 635-3 Test Value Unit Reference Range Code Code System Flag Result ACTINOMYCES ODONTOLYTICUS A GRAM STAIN* - Collect Date/T vito: 08/12/2023 08:46 [facility] ID: [id number] [address] [place] [address], [id number] LOINC: 664-3 Test Value Unit Reference Range Code Code System Flag SOURCE- Other WBC s few PREDOMINANT ORGANISM Gram pos cocci GRAM STAIN* - Collect Date/T vito: 08/12/2023 08:46 [facility] ID: [id number] [address] [place] [address], [id number] LOINC: 664-3 Test Value Unit Reference Range Code Code System Flag SOURCE- Other WBC s few PREDOMINANT ORGANISM Gram pos cocci CULT ANAEROBIC ([facility]) CULTU RE - Collect Date/Time: 08/12/2023 08:46 [facility] ID: [id number] [address] [place] [address], [id number] LOINC: 635-3 Test Value Unit Reference Range Code Code System Flag Result IVON Meza BASIC METABOLIC PANEL (BMP) - Collect Date/Time: 08/12/2023 07:00 [facility] ID: [id number] [address] [place], [place], [address] LOINC: 06833-8 Test Value Unit Reference Range Code Code [...] H=34 2028-9 LOINC ANION GAP 9.0 mmol/L 08516-4 LOINC CALCIUM SERUM 9.1 mg/dL L=8.2 H=10.2 50353-4 LOINC AGE 53 years eGFR (non-Afr.Amer.) 79 mL/min 02030-9 LOINC eGFR (Afr-Guinean) 95 mL/min 89908-3 LOINC CBC W/ DIFFERENTIAL* - Colle ct Date/Time: 08/12/2023 07:00 [facility] ID: [id number] [address] [place] [address], [address] LOINC: 61872-1 Test Value Unit Reference Range Code Code System Flag WBC 5.01 th/cmm L=5.00 H=10.00 6690-2 LOINC NEUT % 60.9 % L=40.0 H=80.0 LYMPH % 25.9 % L=10.0 H=50.0 MONO % 9.6 % L=2.0 H=12.0 38428-1 LOINC EOS % 2.6 % L=0.0 H=8.0 BASO % 0.8 % L=0.0 H=3.0 IG % 0.2 % L=0.0 H=1.1 2514-8 LOINC NRBC % 0.0 % L=0.0 H=0.0 28143-1 LOINC NEUT abs count 3.1 th/cmm L=1.6 H=8.4 751-8 LOINC LYMPH abs count 1.3 th/cmm L=1.5 H=4.0 731-0 LOINC L MONO abs count 0.5 th/cmm L=0.2 H=1.0 742-7 LOINC EOS abs count 0.1 th/cmm L=0.0 H=0.5 711-2 LOINC BASO abs count 0.0 th/cmm L=0.0 H=0.2 704-7 LOINC IG abs count 0.0 th/cmm L=0.0 H=0.1 59578-8 LOINC NRBC abs count 0.0 mil/cmm L=0.0 H=0.0 33548-0 LOINC RBC 4.85 mil/cmm L=4.30 H=6.20 789-8 [...] CAP ILLARY - Collect Date/Time: 08/12/2023 06:55 [facility] ID: [id number] [address] [place], [place], [id number] LOINC: 30892-8 Test Value Unit Reference Range Code Code System Flag GLUCOSE CAP 236 mg/dL L=70 H=116 94813-0 LOINC H Social History Type Status Start Date End Date Code Code Rochelle em Sex Male Vital Signs Vital Sign Value Unit Durham Value Durham Unit Date/Time Recent/Initial? Code Code System Body Mass Index 32.19 kg/m2 08/04/2023 14:04 Initial 50013 -5 LOINC Systolic Blood Pressure 171 mm[Hg] 08/12/2023 09:13 Initial 8480- 6 LOINC Diastolic Blood Pressure 95 mm[Hg] 08/12/2023 09:13 Initial 8462- 4 LOINC Body Surface Area 2.19 m2 08/04/2023 14:04 Initial 3140- 1 LOINC Height 175.260 0 cm 69.00 in 08/04/2023 14:04 Initial 8302- 2 LOINC O2 Saturation 97 % 2022 09:13 Initial 63705 -5 LOINC Pulse 59.0 /min 08/12/2023 09:13 Initial 8867- 4 LOINC Respiration 10 /min 08/12/20 09:13 Initial 9279- 1 LOINC Temperature 36.3 Destiny 97.3 F 08/12/20 09:13 Initial 8310- 5 LOINC Weight 98.88 kg 217.99 lbs 08/04/2023 14:04 Initial 40986 -7 LOINC Hospital Discharge Instructions Should you have any questions prior to discharge, please contact a member of your healthcare team. If you have left the hospital and have any questions, please contact your primary care physician. Reason For Referral No Data Found Procedures Procedure Name Date Status Code Code Maite m Amputation, Toe; Interphalangeal Joint 08/12/2023 complete d 26948 CPT Anesthesia, Nerves/Muscles/T endons & Fascia, Lower Leg/Ankle/Foot; NOS 08/12/2023 completed 35608 CPT Allergies and Adverse Reactions Allergy Substance Reaction Severity Start Date Concern Status Co de Code System LISINOPRIL Active 36422 RxNorm Plan of Treatment MRI LOWER EXT W/O CONTRAST 08/06/2023 Encounters Encounter Diagnosis Start Date Code Code Sys tem Other acute osteomyelitis, left ankle and foot 023 SNOMED-CT Personal Care Team Section Performer Name Performer Role Active Date Inactive Da te
--- OUTSIDE RECORDS SUMMARY | 2024-09-06 12:47 | XMS_ITS ---
Author Organization Unknown Address [address] [place] [address] [phone] Phone Care Team Providers Care Toe Sewer Name Role Phone DAVE Meza Attending Unavailable [...] Status Co de Code System LISINOPRIL Active 37125 RxNorm Plan of Treatment MRI LOWER EXT W/O CONTRAST 08/06/2023 Encounters Encounter Diagnosis Start Date Code Code Sys tem Acute osteomyelitis of ankle and/or foot 08/12/2023 196401364 SNOMED-CT Personal Care Team Section Performer Name Performer Role Active Date Inactive Da te
--- OUTSIDE RECORDS SUMMARY | 2024-09-06 12:48 | XMS_ITS ---
Author Organization Unknown Address [address] [place] [address] [phone] Phone Care Team Providers Care Stage Settings Painter Name Role Phone DAVE Meza Attending Unavailable [...] Status Co de Code System LISINOPRIL Active 03872 RxNorm Plan of Treatment MRI LOWER EXT W/O CONTRAST 08/06/2023 Encounters Encounter Diagnosis Start Date Code Code Sys tem Acute osteomyelitis of ankle and/or foot 08/19/2023 858312468 SNOMED-CT Personal Care Team Section Performer Name Performer Role Active Date Inactive Da suresh
--- OUTSIDE RECORDS SUMMARY | 2024-09-06 12:48 | XMS_ITS ---
Author Organization Unknown Address [address] [place] [address] [phone] Phone Care Team Providers Care Mechanical Estimator Name Role Phone DAVE Meza Attending Unavailable [...] Status Co de Code System LISINOPRIL Active 72296 RxNorm Plan of Treatment MRI LOWER EXT W/O CONTRAST 08/06/2023 Encounters Encounter Diagnosis Start Date Code Code Sys tem Abscess of foot 09/22/2023 875925439 SNOMED-CT Personal Care Team Section Performer Name Performer Role Active Date Inactive Da suresh
--- OUTSIDE RECORDS SUMMARY | 2024-09-06 12:48 | XMS_ITS ---
Author Organization Unknown Address [address] [place] [address] [phone] Phone Care Team Providers Care Light Equipment Operator Name Role Phone DAVE Meza Attending Unavailable LOLA LENI Herr Primary Unavailable Results GRAM STAIN* - Collect Date/T vito: 09/15/2023 17:12 [facility] ID: [id number] [address] [place] [address], [id number] LOINC: 664-3 Test Value Unit Reference Range Code Code System Flag SOURCE- Other WBC s moderate PREDOMINANT ORGANISM Gram pos cocci SUSCEPTIBILITY OF BACTERIAL ORGANISM* - Collect Date/Time: 09/15/2023 16:00 [facility] ID: [id number] [address] [place] [address], [id number] LOINC: 89171-9 Test Value Unit Reference Range Code Code [...] Status Co de Code System LISINOPRIL Active 33646 RxNorm Plan of Treatment MRI LOWER EXT W/O CONTRAST 08/06/2023 Encounters Encounter Diagnosis Start Date Code Code Sys tem Abscess of foot 09/15/2023 572273733 SNOMED-CT Personal Care Team Section Performer Name Performer Role Active Date Inactive Da te
--- OUTSIDE RECORDS SUMMARY | 2024-09-06 12:49 | XMS_ITS ---
Author Organization Unknown Address [address] [place] [address] [phone] Phone Care Team Providers Care Unisaw Operator Name Role Phone DAVE Meza Attending [...] Status Co de Code System LISINOPRIL Active 84237 RxNorm Plan of Treatment MRI LOWER EXT W/O CONTRAST 08/06/2023 Encounters Encounter Diagnosis Start Date Code Code Sys tem Abscess of foot 10/07/2023 768007147 SNOMED-CT Personal Care Team Section Performer Name Performer Role Active Date Inactive Da suresh
--- OUTSIDE RECORDS SUMMARY | 2024-09-06 12:49 | XMS_ITS ---
Author Organization Unknown Address [address] [place] [address] [phone] Phone Care Team Providers Care Cat Breeder Name Role Phone DAVE Meza Attending Unavailable [...] Status Co de Code System LISINOPRIL Active 06976 RxNorm Plan of Treatment MRI LOWER EXT W/O CONTRAST 08/06/2023 Encounters Encounter Diagnosis Start Date Code Code Sys tem Acute osteomyelitis of ankle and/or foot 11/10/2023 320479980 SNOMED-CT Personal Care Team Section Performer Name Performer Role Active Date Inactive Da suresh
--- OUTSIDE RECORDS SUMMARY | 2024-09-06 12:49 | XMS_ITS ---
Author Organization Unknown Address [address] [place] [address] [phone] Phone Care Team Providers Care Feed Inspection Supervisor Name Role Phone DAVE Meza Attending [...] Status Co de Code System LISINOPRIL Active 60332 RxNorm Plan of Treatment MRI LOWER EXT W/O CONTRAST 08/06/2023 Encounters Encounter Diagnosis Start Date Code Code Sys tem Abscess of foot 09/29/2023 128922441 SNOMED-CT Personal Care Team Section Performer Name Performer Role Active Date Inactive Da suresh
--- OUTSIDE RECORDS SUMMARY | 2024-09-06 12:49 | XMS_ITS ---
Author Organization Unknown Address [address] [place] [address] [phone] Phone Care Team Providers Care Search Engine Optimizer Name Role Phone DAVE Meza Attending Unavailable [...] Status Co de Code System LISINOPRIL Active 96231 RxNorm Plan of Treatment MRI LOWER EXT W/O CONTRAST 08/06/2023 Encounters Encounter Diagnosis Start Date Code Code Sys tem 10/20/2023 [id number] SNOMED-CT Personal Care Team Section Performer Name Performer Role Active Date Inactive Da suresh
--- OUTSIDE RECORDS SUMMARY | 2024-09-06 12:50 | XMS_ITS ---
Author Organization Unknown Address [address] [place] [address] [phone] Phone Care Team Providers Care Manager Of Network Name Role Phone DAVE Meza Attending Unavailable LOLA Herr Primary Unavailable Results CBC W/ DIFFERENTIAL* - Colle ct Date/Time: 10/27/2023 11:36 [facility] ID: [id number] [address] [place] [address], [address] LOINC: 32622-6 Test Value Unit Reference Range Code Code System Flag WBC 5.47 th/cmm L=5.00 H=10.00 6690-2 LOINC NEUT % 64.0 % L=40.0 H=80.0 LYMPH % 25.8 % L=10.0 H=50.0 MONO % 7.7 % L=2.0 H=12.0 21461-7 LOINC EOS % 1.8 % L=0.0 H=8.0 BASO % 0.5 % L=0.0 H=3.0 IG % 0.2 % L=0.0 H=1.1 2514-8 LOINC NRBC % 0.0 % L=0.0 H=0.0 99768-5 LOINC NEUT abs count 3.5 th/cmm L=1.6 H=8.4 751-8 LOINC LYMPH abs count 1.4 th/cmm L=1.5 H=4.0 731-0 LOINC L MONO abs count 0.4 th/cmm L=0.2 H=1.0 742-7 LOINC EOS abs count 0.1 th/cmm L=0.0 H=0.5 711-2 LOINC BASO abs count 0.0 th/cmm L=0.0 H=0.2 704-7 LOINC IG abs count 0.0 th/cmm L=0.0 H=0.1 06941-7 LOINC NRBC abs count 0.0 mil/cmm L=0.0 H=0.0 86280-0 LOINC RBC 5.18 mil/cmm L=4.30 H=6.20 789-8 [...] PANEL (BMP) - Collect Date/Time: 10/27/2023 11:36 [facility] ID: [id number] [address] [place] [address], [address] LOINC: 90846-0 Test Value Unit Reference Range Code Code [...] H=34 2028-9 LOINC ANION GAP 4.7 mmol/L 73134-6 LOINC CALCIUM SERUM 8.8 mg/dL L=8.2 H=10.2 17753-6 LOINC AGE 53 years eGFR (non-Afr.Amer.) 56 mL/min 87532-4 LOINC eGFR (Afr-Bahraini) 68 mL/min 55111-4 LOINC XR TOE(S) 2V OR MORE LT* - C ompleted: 10/27/2023 11:21 LOINC: [facility] RADIOLOGY [place], [place] [address] PACS CUSTOMER RESOURCE SPECIALIST REPORT Patient Name: LUDY JARA MRN: Sex: : Age: [id number] M [id number] Account: Accession: Admit: StayType: [id number] 10/27/2023 CLINIC Ordered: Order ID: Submitted: Ordering Provider: 10/27/2023 08:04 [id number] MARTY WARD Completed: Technologist: Resulted: 10/27/2023 11:21 [...] Status Co de Code System LISINOPRIL Active 12179 RxNorm Plan of Treatment MRI LOWER EXT W/O CONTRAST 08/06/2023 Encounters Encounter Diagnosis Start Date Code Code Sys tem Acute osteomyelitis of ankle and/or foot 10/27/2023 888604695 SNOMED-CT Personal Care Team Section Performer Name Performer Role Active Date Inactive Da te
--- OUTSIDE RECORDS SUMMARY | 2024-09-06 12:50 | XMS_ITS ---
Author Organization Unknown Address [address] [place] [address] [phone] Phone Care Team Providers Care Diesel Roller Operator Name Role Phone DAVE Meza Attending [...] Status Co de Code System LISINOPRIL Active 17976 RxNorm Plan of Treatment MRI LOWER EXT W/O CONTRAST 08/06/2023 Encounters Encounter Diagnosis Start Date Code Code Sys tem 10/14/2023 [id number] SNOMED-CT Personal Care Team Section Performer Name Performer Role Active Date Inactive Da suresh
--- OUTSIDE RECORDS SUMMARY | 2024-09-06 12:51 | XMS_ITS | Encounter Summary ---
Author Organization [facility] Address [address] [place] [address] Care Team Providers Care Mfts Name Role Phone Mariella Ramon MD Primary Care Provider [phone] Reason for Visit * Reason Onset Date Comments Other 03/12/2022 Encounter Details Date Type Department Care Team (Late st Contact Info) Description 03/12/2022 Telephone [facility] Infectious Disease - [address] [phone] Jerry Sams, DO [address] [facility], Level [address] [place] [address] Other Social History Tobacco Use [...] order and faxed it to Radiology at [facility] @ [phone]. 10:50 am Lino had already heard from scheduling in radiology. * Telephone Encounter - Nona Coffman MA - 03/12/2022 1010 EDT Received call from patient who states [facility] does not have US order and patient is unable to scheduleappointment for procedure. Patient would like a call back to discuss. documented in this encounter Plan of Treatment Not on file documented as of this encounter Visit Diagnoses Not on filedocumented in this encounter Care Teams Mfts Relationship Specialty Start Date End Date Mariella Ramon MD [address] [place] [address] PCP - General Family Medicine - Primary Care 02/23/22 documented as of this encounter
--- OUTSIDE RECORDS SUMMARY | 2024-09-06 12:51 | XMS_ITS | Encounter Summary ---
Author Organization [facility] Address [address] [place] [phone] Care Team Providers Care Ceramic Coater Machine Name Role Phone Mariella Ramon MD Primary Care Provider [phone] Reason for Referral * Laboratory Services (Routine/Next Available) - New Request Specialty Diagnoses / Procedures Referred By Contac t Referred To Contact Diagnoses High risk medication use Procedures C REACTIVE PROTEIN Jerry Sams DO [address] [phone] Referral ID Status Reason Start Date Expiration Date V isits Requested Visits Authorized [id number] New Request 02/26/2022 1 1 * Laboratory Services (Routine/Next Available) - New Request Specialty Diagnoses / Procedures [facility] Referred To Contact Diagnoses High risk medication use Procedures SED RATE Jerry Sams DO [address] [phone] Referral ID Status Reason Start Date Expiration Date V isits Requested Visits Authorized [id number] New Request 02/26/2022 1 1 * Laboratory Services (Routine/Next Available) - New Request Specialty Diagnoses / Procedures [facility] Referred To Contact Diagnoses High risk medication use Procedures CREATININE Jerry Sams DO [address] [place] [phone] Referral ID Status Reason Start Date Expiration Date V isits Requested Visits Authorized [id number] New Request 02/26/2022 1 1 * Laboratory Services (Routine/Next Available) - New Request Specialty Diagnoses / Procedures Referred By Contkassandra shah Referred To Contact Diagnoses High risk medication use Procedures Jerry Mc DO [address] [place] [phone] Referral ID Status Reason Start Date Expiration Date V isits Requested Visits Authorized [id number] New Request 02/26/2022 1 1 * Laboratory Services (Routine/Next Available) - New Request Specialty Diagnoses / Procedures Referred By Salena shah Referred To Contact Diagnoses High risk medication use Procedures COMPLETE BLOOD COUNT AND DIFFERENTIAL Jerry Sams DO [address] [place] [phone] Referral ID Status Reason Start Date Expiration Date V isits Requested Visits Authorized [id number] New Request 02/26/2022 1 1 Reason for Visit * Reason Onset Date Comments Follow-up 02/26/2022 Switching care f [facility] Encounter Details Date Type Department Care Team (Late st Contact Info) Description 02/26/2022 Orders Only [facility] [place] [address] Irish Barrera RN Abscess of left thigh [...] documented in this encounter Progress Notes * rIish Barrera RN - 02/26/2022 1020 EDT Orders re-written and sent to [facility]. Weekly labs are cbc/d, BUN, Creatinine, Sed Rate, CRP also faxed. Order written for US of both thighs to be done week of . Has OPAT follow-up with Sylvie Olguin NP on 08/10/22. Also sent information on PICC insertion (02/18) at [facility]. documented in this encounter Plan of [...] Date End Date Mariella Ramon MD [address] [place] [address] PCP - General Family Medicine - Primary Care 02/23/22 documented as of this encounter
--- OUTSIDE RECORDS SUMMARY | 2024-09-06 12:51 | XMS_ITS | Encounter Summary ---
Author Organization [facility] Address [address] [place] [address] Care Team Providers Care Order Taker Name Role Phone Mariella Ramon MD Primary Care Provider [phone] Reason for Visit * Reason Comments Acute Illness * Consult (Routine) - Receiving Office to Obtain Authorization Specialty Diagnoses / Procedures Referred By Contac t Referred To Contact Infectious Disease Diagnoses MSSA bacteremia Thigh abscess Lizett Marmolejo MD [address] [place] [phone] [facility] Ep[facility] Infectious Disease [address] [place] [address] Referral ID Status Reason Start Date Expiration Date Visits Requested Visits Authorized [id number] Receiving Office to Obtain Authorization 1 1 Encounter Details Date Type Department Care Team (Late st Contact Info) Description 02/26/2022 9:30 EDT Office Visit [facility] Infectious Disease - [facility] [address] [place], [place] [address] Jerry Sams DO 111 [facility] [address] [place] [address] Staph aureus infection (Primary Dx) [...] Complaint: Hospital follow-up care, initial visit with [facility] ID HPI: Mr. Ruiz is a 51 y.o. male with a history of type 2 diabetes, HLD, status post left Achilles tendon repair, and sleep apnea was referred to [facility] infectious diseases clinic in follow-up of a prolonged admission earlier this month at [facility] for MSSA bacteremia and a bilateral thigh abscess. Records are limited but during his admission, ID at [facility] was consulted over the phone for antibiotic recommendations and patient transported briefly down to [facility] for IR guided right thigh drain placement and then returned to [facility] same day. [facility] was not able to provide TETO in setting of high-grade MSSA bacteremia. Patient was discharged home and referred to the [facility] system for ID follow-up and a [...] R>L bilateral thigh abscesses. Patient transported to [facility] briefly [address] for IR guided [...] for 4-6 weeks of IV antibiotics. Initially [facility] ID recommended TETO viaa phone consult but [facility] was unable to schedule patient for another month so upon discharge Apr, patient was scheduled to have follow-up with [facility] ID and then a TETO with [facility] cardiology. Currently, feels OK. No fevers, chills, night sweats. No nausea, vomiting or diarrhea. VNA visits weekly for dressing change on PICC. L thigh pain at site of known abcess is getting worse and making it difficult to walk. No other ortho or ENVIRONMENTAL COMPLIANCE OFFICER complaints. Pt R thigh pain has improved. [...] lift Relationships / Living Situation: Lives in [facility] [facility] [place], with . No kids Travel:Born [facility], came to [place] age 7. No overseas. Never lived anywhere [...] cultures MSSA 05 February blood cultures MSSA ([facility]) susceptible to Cipro, gentamicin, daptomycin, erythromycin, oxacillin, vancomycin 05 February blood cultures no growth 07 February blood cultures MSSA ( St ) 08 February blood cultures no growth 12 February right thigh abscess MSSA ([facility]) Radiology: 12 February ultrasound-guided right lateral thigh [...] down to 3.4 cm diameter. IR at [facility] determined this abscess was too small to drain. 8. PICC line placed 18 February Assessment 1. MSSA bacteremia 05 February, 07 February. Blood cultures cleared on 08 February. Etiology of bacteremia unclear but suspect lesion on R foot (see photo) resulted in skin breakdown etc. Admitted at [facility] 05 February-19 February surface echo unremarkable, TETO pending at [facility] this week per report but pt waiting for insurance paper work. TETO recommended by [facility] ID via phone call based on records [...] have left a message with hospitalists in [facility] and placed a page as well, awaiting their return call to clarify that the u/s done near d/c (20 February) did show the L thigh abscessas still not drainable as pt is concerned due to continued pain. Will ask our ID front facer team totry to get this u/s result [...] Repeat L/R thigh US around 5 week soot to measure progress ordered for [facility]. [...] very challenging. I dont think it will roll changer with regards to length of therapy, we are going with 6 weeks anyway due to thigh abscess. For these reasons, I think we can hold off on the TETO. 5. Follow up with [employer] 10 March for OPAT safety review, then me 20 March to review u/s and make plans to convert to PO. 6. Letter given to today excusing her from work. 7. [employer] DM management per PCM It has been a pleasure seeing Mr. Ruiz in clinic today. Jeryr Sams DO Pager [phone] Infectious Diseases documented in this encounter Plan [...] daily. added in this encounter Care Teams Order Taker Relationship Specialty Start Date End Date Mariella Ramon MD [address] [place] [address] PCP - General Family Medicine - Primary Care 02/23/22 documented as of this encounter
--- OUTSIDE RECORDS SUMMARY | 2024-09-06 12:51 | XMS_ITS | Referral Summary ---
Author Organization [facility] Address [address] [place] [address] Care Team Providers Care Skiver Sock Linings Name Role Phone Mariella Ramon MD Primary Care Provider [phone] Allergies Active Allergy Reactions Criticality Noted Date [...] of Treatment Not on file Care Teams Skiver Sock Linings Relationship Specialty Start Date End Date Mariella Ramon MD [address] [place] [phone] PCP - General Family Medicine - Primary Care 02/23/22
--- OUTSIDE RECORDS SUMMARY | 2024-09-06 12:51 | XMS_ITS ---
Author Organization Unknown Address [address] [place] [address] [phone] Phone Care Team Providers Care Primer Assembler Name Role Phone DAVE Meza Attending Unavailable [...] Amputation, Toe; Interphalangeal Joint 11/15/2023 complete d 83087 CPT Allergies and Adverse Reactions Allergy Substance Reaction Severity Start Date Concern Status Co de Code System LISINOPRIL Active 78847 RxNorm Plan of Treatment MRI LOWER EXT W/O CONTRAST 08/06/2023 Encounters Encounter Diagnosis Start Date Code Code Sys tem Other chronic osteomyelitis, left ankle and foot 11/15 SNOMED-CT Personal Care Team Section Performer Name Performer Role Active Date Inactive Da te
--- OUTSIDE RECORDS SUMMARY | 2024-09-06 12:51 | XMS_ITS | Encounter Summary ---
Author Organization [facility] Address [address] [place] [address] Care Team Providers Care Coiled Tubing Supervisor Name Role Phone Mariella Ramon MD Primary Care Provider [phone] Encounter Details Date Type Department Care Team (Late st Contact Info) Description 05/20/2024 Lab Requisition [facility] Pathology & Laboratory Medicine - [address] [address] Ozzy Garcia MD [address] [place] [address], [address] [place], [place] [address] Encounter for screening for malignant neoplasm of [...] explore management options, if applicable. 05/25/2024 14:22 [facility] Final Diagnosis A. COLON, 65 CM, POLYP, BIOPSY: - Tubular adenoma fragments. B. COLON, 40 CM, POLYP, BIOPSY: - Tubular adenoma fragments. 05/25/2024 14:22 [facility] Attestation By the signature below, the attending physician certifies that they have 1) personally conducted a gross and/or microscopic examination of the described specimen(s), and/or personally interpreted the results of laboratory testing of the described specimen(s), and 2) personally rendered or confirmed the above diagnosis. 05/25/2024 14:22 [facility] at 1422 Clinical History Screening colonoscopy, polyps 05/25/2024 14:22 [facility] Gross Description A. [...] B1. ERIC ABRAHAM(ASCP) 05/22/2024 7:34 05/25/2024 14:22 [facility] Performing Lab [facility] 05/25/2024 14:22 T [facility] Scanned Images 05/25/2024 14:22 [facility] Tissue POLYP OF COLON / Unknown 05/19/2024 9:44 EDT 05/20/2024 10:36 EDT Tissue specimen (specimen) POLYP OF COLON / Unknown 05/19/2024 9:44 EDT 05/20/2024 10:36 EDT Ozzy aGrcia MD PATHOLOGY ORDERABLES [facility] [address] [place] [address] documented in this encounter Visit Diagnoses Diagnosis Encounter for screening for malignant neoplasm of colon Special screening for malignant neoplasms, colon documented in this encounter Care Teams Coiled Tubing Supervisor Relationship Specialty Start Date End Date Mariella Ramon MD [address] [place] [address] PCP - General Family Medicine - Primary Care 02/23/22 documented as of this encounter
--- OUTSIDE RECORDS SUMMARY | 2024-09-06 12:51 | XMS_ITS | Encounter Summary ---
Author Organization [facility] Address [address] [place] [address] Care Team Providers Care Near East Archeology Professor Name Role Phone Unavailable Primary Care Provider Unavailabl e Reason for Visit * Cardiology (Routine/Next Available) - New Request Specialty Diagnoses / Procedures Referred By Salena shah Referred To Contact Procedures OUTSIDE IMAGES FOR ARCHIVE - ECHO Imaging, External Referral ID Status Reason Start Date Expiration Date V isits Requested Visits Authorized [id number] New Request 02/18/2022 1 1 Encounter Details Date Type Department Care Team (Latest Contact Info) Description 02/09/2022 - 02/09/2022 23:59 EDT Hospital Encounter [facility] Radiology - [place] [address] [place] [address] Discharge Disposition: Home or Self Care Social [...]
--- OUTSIDE RECORDS SUMMARY | 2024-09-06 12:51 | XMS_ITS | Encounter Summary ---
Author Organization [facility] Address [address] [place] [address] Care Team Providers Care Fibrous Wallboard Inspector Name Role Phone Mariella Ramon MD Primary Care Provider [phone] Reason for Visit * Reason Onset Date Comments Follow-up 02/26/2022 Encounter Details Date Type Department Care Team (Late st Contact Info) Description 02/26/2022 Telephone [facility] Infectious Disease - [facility] [address] [place], [place] [address] Jerry Sams, [address] [facility], [address] [place] [address] Follow-up Social History Tobacco Use [...] J's IM placed out pt consult at [facility] to have it drained as out pt. Case d/w IR at [facility]. They have received the consult from IM at [facility] yesterday which was placed last week and will contact the patient to schedule IR drainage at [facility]. Pt and family given this information and were relieved. His phone number is correct in [facility] and he knowsto await call. Labs from 24 February reviewed, creat 0.9. WBC 4.63. We have taken over his OPAT ordersand lab review. Will see us via zoom/phone call and 20 March to follow up on micro cultures if [facility] IR is able to drain his L abscess. Pt is afebrile, well appearing and clinically stable so I don'tthink this warrants emergent drainage today. Pt and family comfortable with plan. documented in this encounter Plan of Treatment Not on file documented as of this encounter Visit Diagnoses Not on filedocumented in this encounter Care Teams Fibrous Wallboard Inspector Relationship Specialty Start Date End Date Mariella Ramon MD [address] [place] [address] PCP - General Family Medicine - Primary Care 02/23/22 documented as of this encounter
--- OUTSIDE RECORDS SUMMARY | 2024-09-06 12:51 | XMS_ITS | Encounter Summary ---
Author Organization [facility] Address [address] [place] [address] Care Team Providers Care Director Video Name Role Phone Mariella Ramon MD Primary Care Provider [phone] Encounter Details Date Type Department Care Team (Late st Contact Info) Description 09/20/2023 Lab Requisition [facility] Pathology & Laboratory Medicine - [address] [address] Outr Resulting Lab, Provider Social History Tobacco [...] Staphylococcus caprae(A) VITEK SUSCEPTIBILITY 09/22/2023 7:48 EST [facility] Organism TOE STRUCTURE / Unknown [...] Outr Resulting Lab MICROBIOLOGY - GENERAL ORDERABLES [facility] [address] [place] [address] documented in this encounter Visit Diagnoses Not on filedocumented in this encounter Care Teams Director Video Relationship Specialty Start Date End Date Mariella Ramon MD [address] [place] [address] PCP - General Family Medicine - Primary Care 02/23/22 documented as of this encounter
--- OUTSIDE RECORDS SUMMARY | 2024-09-06 12:51 | XMS_ITS | Encounter Summary ---
Author Organization [facility] Address [address] [place] [address] Care Team Providers Care Hog Confinement System Manager Name Role Phone Mariella Ramon MD Primary Care Provider Reason for Visit * Reason Onset Date Comments Pharmacy 03/23/2022 Encounter Details Date Type Department Care Team (Late st Contact Info) Description 03/23/2022 Telephone [facility] Infectious Disease - [address] [id number] Jerry Sams, DO [address] [facility], [address] [place] [address] Pharmacy Social History Tobacco Use [...] Encounter - Haven Bolanos RN - 03/23/2022 3919 EDT Confirmed with pt PICC was removed today by PCP per plan Advised pt that we did fax order for ultrasound to [facility]- he should wait to hear for scheduling, butcall if has not heard by end of week I contacted [facility] to advise PICC is done, no longer need their services * Telephone Encounter - Payton Justice - 03/23/2022 1401 EDT Maria M from [facility] pharmacy states that end date of therapy was yesterday. Asking for plan. Would like a call back at [phone]. documented in this encounter Plan of Treatment Not on file documented as of this encounter Visit Diagnoses Not on filedocumented in this encounter Care Teams Hog Confinement System Manager Relationship Specialty Start Date End Date Mariella Ramon MD [address] [place] [address] PCP - General Family Medicine - Primary Care 02/23/22 documented as of this encounter
--- OUTSIDE RECORDS SUMMARY | 2024-09-06 12:51 | XMS_ITS | Encounter Summary ---
Author Organization [facility] Address [address] [place] [address] Care Team Providers Care Brick Extruder Operator Name Role Phone Unknown, Provider Primary Care Provider Mariella Haq MD Primary Care Provider [phone] Encounter Details Date Type Department Care Team (Late st Contact Info) Description 02/17/2022 Lab Requisition [facility] Pathology & Laboratory Medicine - [address] [address] Outr Resulting Lab, Provider Social History Tobacco [...] Surface Ag Negative Negative 02/19/20 10:41 EDT [facility] Hep B Surface Ab, Quantitative 4.4 See Note mIU/mL 02/18/2022 10:41 EDT [facility] Comment: Reference Range for Hep B Surface Ab, Quant: Positive: >= 10.0 mIU/mL Negative: ??< 10.0 mIU/mL Patient is presumed to not be immune to infection with Hepatitis B Virus. Hep B Surface Ab, Qualitative Negative See Note 02/18/2022 10:41 EDT [facility] Comment: Reference Range for Hep B Surface Ab, Qual: Unvaccinated: ??Negative Vaccinated: ??Positive Hepatitis B Core Ab, Total Negative Negative 02/18/2022 10:41 EDT [facility] Hep C Antibody Negative Negative 02/18/2022 10:41 EDT [facility] Blood VENOUS BLOOD / Unknown 02/17/2022 6:10 EDT 02/17/2022 17:43 EDT Provider Outr Resulting Lab CHEMISTRY & BLOOD GAS ORDERABLES Performing Organization Address City/State/[facility] Co de Phone Number [facility] [address] [place] [address] documented in this encounter Visit Diagnoses Not on filedocumented in this encounter Care Teams Brick Extruder Operator Relationship Specialty Start Date End Date Unknown, Provider, PCP - General 02/20/22 02/22/22 Mariella Ramon MD [address] [place] [address] PCP - General Family Medicine - Primary Care 02/23/22 documented as of this encounter
--- OUTSIDE RECORDS SUMMARY | 2024-09-06 12:51 | XMS_ITS | Encounter Summary ---
Author Organization [facility] Address [address] [place] [address] Care Team Providers Care Sanitor Name Role Phone Mariella Ramon MD Primary Care Provider Reason for Referral * Cardiology (STAT) - Authorized Specialty Diagnoses / Procedures Referred By Contac t Referred To Contact Diagnoses Bacteremia due to Staphylococcus aureus Procedures TRANSESOPHAGEAL ECHO (TETO) SD ECHO HEART XTHORACIC,COMPLETE W DOPPLER Lizett Marmolejo MD [address] [place] [address] [facility] Referral ID Status Reason Start Date Expiration Date V isits Requested Visits Authorized [id number] Authorized 02/23/2022 10/31/2023 1 1 Encounter Details Date Type Department Care Team (Latest Contact Info) Description 02/23/2022 Transcribe Orders [facility] Cardiology - [place] [address] [place] [address] Lizett Marmolejo MD [address] [place] [address] Bacteremia due to Staphylococcus aureus [...] Bacteremia documented in this encounter Care Teams Sanitor Relationship Specialty Start Date End Date Mariella Ramon MD [address] [place] [address] PCP - General Family Medicine - Primary Care 02/23/22 documented as of this encounter
--- OUTSIDE RECORDS SUMMARY | 2024-09-06 12:51 | XMS_ITS | Encounter Summary ---
Author Organization [facility] Address [address] [place] [address] Care Team Providers Care Diet Technician Registered Name Role Phone Mariella Ramon MD Primary Care Provider [phone] Encounter Details Date Type Department Care Team (Late st Contact Info) Description 08/12/2023 Lab Requisition [facility] Pathology & Laboratory Medicine - [address] [phone] Outr Resulting Lab, Provider Social History Tobacco [...] Few Actinomyces odontolyticus(A ) 08/19/2023 11:02 EDT [facility] Tissue TOE STRUCTURE / Unknown 08/12/2023 8:46 EDT 08/12/2023 22:49 EDT Provider Outr Resulting Lab MICROBIOLOGY - GENERAL ORDERABLES [facility] [address] [place] [address] documented in this encounter Visit Diagnoses Not on filedocumented in this encounter Care Teams Diet Technician Registered Relationship Specialty Start Date End Date Mariella Ramon MD [address] [place] [address] PCP - General Family Medicine - Primary Care 02/23/22 documented as of this encounter
--- OUTSIDE RECORDS SUMMARY | 2024-09-06 12:51 | XMS_ITS | Encounter Summary ---
Author Organization [facility] Address [address] [place] [address] Care Team Providers Care Tower Observer Name Role Phone Mariella Ramon MD Primary Care Provider [phone] Encounter Details Date Type Department Care Team (Late st Contact Info) Description 08/12/2023 Lab Requisition [facility] Pathology & Laboratory Medicine - [address] [address] Outr Resulting Lab, Provider Social History Tobacco [...] ID Few Deniseldia magna(A) 08/18/2023 13:55 EDT [facility] Tissue TOE STRUCTURE / Unknown 08/12/2023 8:46 EDT 08/12/2023 22:48 EDT Provider Outr Resulting Lab MICROBIOLOGY - GENERAL ORDERABLES [facility] [address] [place] [address] documented in this encounter Visit Diagnoses Not on filedocumented in this encounter Care Teams Tower Observer Relationship Specialty Start Date End Date Mariella Ramon MD [address] [place] [address] PCP - General Family Medicine - Primary Care 02/23/22 documented as of this encounter
--- OUTSIDE RECORDS SUMMARY | 2024-09-06 12:51 | XMS_ITS | Encounter Summary ---
Author Organization [facility] Address [address] [place] [address] Care Team Providers Care Manager Social Name Role Phone Unknown, Provider Primary Care Provider Mariella Haq MD Primary Care Provider [phone] Encounter Details Date Type Department Care Team (Late st Contact Info) Description 02/17/2022 Lab Requisition [facility] Pathology & Laboratory Medicine - [address] [address] Outr Resulting Lab, Provider Social History Tobacco [...] 81 - 157 mg/dL 02/18/2022 8:49 EDT [facility] Blood VENOUS BLOOD / Unknown 02/17/2022 6:10 EDT 02/17/2022 17:43 EDT Provider Outr Resulting Lab CHEMISTRY & BLOOD GAS ORDERABLES [facility] [address] [place] [address] documented in this encounter Visit Diagnoses Not on filedocumented in this encounter Care Teams Manager Social Relationship Specialty Start Date End Date Unknown, Provider, PCP - General 02/20/22 02/22/22 Mariella Ramon MD [address] [place] [address] PCP - General Family Medicine - Primary Care 02/23/22 documented as of this encounter
--- OUTSIDE RECORDS SUMMARY | 2024-09-06 12:51 | XMS_ITS | Encounter Summary ---
Author Organization [facility] Address [address] [place] [address] Care Team Providers Care Range Technician Name Role Phone Mariella Ramon MD Primary Care Provider [phone] Reason for Visit * (Routine/Next Available) - Receiving Office to Obtain Authorization Specialty Diagnoses / Procedures Referred By Contac t Referred To Contact Procedures US OUTSIDE IMAGES BODY Unknown, Provider, MAIN Referral ID Status Reason Start Date Expiration Date Visits Requested Visits Authorized [id number] Receiving Office to Obtain Authorization 03/16/2022 1 1 Encounter Details Date Type Department Care Team (Latest Contact Info) Description 03/16/2022 11:06 EDT - 03/16/2022 23:59 EDT Hospital Encounter [facility] Secondary Read[place] Discharge Disposition: Home [...] on filedocumented in this encounter Care Teams Range Technician Relationship Specialty Start Date End Date Mariella Ramon MD [address] [place] [address] PCP - General Family Medicine - Primary Care 02/23/22 documented as of this encounter
--- OUTSIDE RECORDS SUMMARY | 2024-09-06 12:51 | XMS_ITS ---
Author Organization Unknown Address [address] [place] [phone] Phone Care Team Providers Care Glass Decorator Name Role Phone DAVE Meza Attending Unavailable [...] Status Co de Code System LISINOPRIL Active 40826 RxNorm Plan of Treatment MRI LOWER EXT W/O CONTRAST 08/06/2023 Encounters Encounter Diagnosis Start Date Code Code Sys tem 12/16/2023 [id number] SNOMED-CT Personal Care Team Section Performer Name Performer Role Active Date Inactive Da suresh
--- OUTSIDE RECORDS SUMMARY | 2024-09-06 12:51 | XMS_ITS | Encounter Summary ---
Author Organization [facility] Address [address] [place] [address] Care Team Providers Care Fruit Harvest Machine Operator Name Role Phone Mareilla Ramon MD Primary Care Provider [phone] Reason for Visit * Reason Onset Date Comments Appointment Related 02/23/2022 Encounter Details Date Type Department Care Team (Late st Contact Info) Description 02/23/[address] [facility] Non-Invasive Cardiology - [facility] [address] [place], [place] [id number] Janae Ngo MD [address] [place] [address] Appointment Related Social History Tobacco Use Types [...] on filedocumented in this encounter Care Teams Fruit Harvest Machine Operator Relationship Specialty Start Date End Date Mariella Ramon MD [address] [place] [address] PCP - General Family Medicine - Primary Care 02/23/22 documented as of this encounter
--- OUTSIDE RECORDS SUMMARY | 2024-09-06 12:51 | XMS_ITS | Encounter Summary ---
Author Organization [facility] Address [address] [place] [address] Care Team Providers Care Retail Special Event Associate Name Role Phone Mariella Ramon MD Primary Care Provider Reason for Visit * Reason Comments Follow-up Encounter Details Date Type Department Care Team (Late st Contact Info) Description 03/20/2022 14:00 EDT Telemedicine [facility] Infectious Disease - [address] [address] Jerry Sams, DO [address] [facility], [address] [place] [address] MSSA bacteremia (Primary Dx) Social [...] 2 diabetes, sleep apnea, prolonged admission at [facility] for MSSA bacteremia that most likely resulted from diabetic foot ulcer and led to bilateral thigh abscesses. Please see initial ID note 26 February for fulldetails. Patient is on a 6-week course of IV Ancef which he will reach on 22 March. Since her last evaluation last month, patient was seen at [facility] 0 to March who performed drainage [...] MSSA 05 February blood cultures MSSA ([facility]) susceptible to Cipro, gentamicin, daptomycin, erythromycin, oxacillin, vancomycin 05 February blood cultures no growth 07 February blood cultures MSSA ( St ) 08 February blood cultures no growth 12 February right thigh abscess MSSA ([facility]) 02 March left thigh fluid collection no growth Radiology: See official report below 02 march IR report from [facility] 1. The anterior left thigh collection [...] Patient given 2-month supply. Prescription phoned into [facility] in [place]. 3. Repeat bilateral thigh ultrasound 5-6 weeks. 4. Repeat Zoom visit/phone call visit with me in about 6-7 weeks to review the results of the ultrasound. 5. We will fax my note to primary care provider so they can pull PICC line when he sees her on Wednesday. Dr Ramon [phone] It has been a pleasure seeing Mr. Ruiz in clinic today. Jerry Sams DO Pager [phone] Infectious Diseases documented in this encounter Plan of Treatment Not on file documented as of this encounter Visit Diagnoses Diagnosis MSSA bacteremia- Primary documented in this encounter Care Teams Retail Special Event Associate Relationship Specialty Start Date End Date Mariella Ramon MD [address] [place] [address] PCP - General Family Medicine - Primary Care 02/23/22 documented as of this encounter
--- OUTSIDE RECORDS SUMMARY | 2024-09-06 12:51 | XMS_ITS | Encounter Summary ---
Author Organization [facility] Address [address] [place] [address] Care Team Providers Care Hydroelectric Station Operator Chief Name Role Phone Mariella Ramon MD Primary Care Provider [phone] Reason for Visit * Reason Onset Date Comments Other 03/24/2022 Encounter Details Date Type Department Care Team (Late st Contact Info) Description 03/24/2022 Telephone [facility] Infectious Disease - [address] [address] Jerry Sams, DO [address] [facility], [address] [place] [address] Other Social History Tobacco Use [...] - 03/24/2022 1431 EDT Received call from [facility] nurse, Kathy, who confirms patients picc line has been removed andthey are discharging patient from services. Any additional jd and Kathy can be reached at [phone]. documented in this encounter Plan of Treatment Not on file documented as of this encounter Visit Diagnoses Not on filedocumented in this encounter Care Teams Hydroelectric Station Operator Chief Relationship Specialty Start Date End Date Mariella Ramon MD [address] [place] [address] PCP - General Family Medicine - Primary Care 02/23/22 documented as of this encounter
--- OUTSIDE RECORDS SUMMARY | 2024-09-06 12:51 | XMS_ITS | Clinical Summary ---
Author Organization [facility] Address [address] [place] [address] Care Team Providers Care Dry House Operator Name Role Phone Mariella Ramon MD Primary Care Provider [phone] Allergies Active Allergy Reactions Criticality Noted Date [...] COVID-19 Vaccine (2023- season) 2024 Care Teams Dry House Operator Relationship Specialty Start Date End Date Mariella Ramon MD [address] [place] [address] PCP - General Family Medicine - Primary Care 02/23/22
--- OUTSIDE RECORDS SUMMARY | 2024-09-06 12:51 | XMS_ITS | Encounter Summary ---
Author Organization [facility] Address [address] [place] [address] Care Team Providers Care Field Ring Assembler Name Role Phone Mariella Ramon MD Primary Care Provider [phone] Reason for Visit * Reason Comments Follow-up Encounter Details Date Type Department Care Team (Late st Contact Info) Description 03/10/2022 9:[address] [facility] Infectious Disease - [address] [id number] Sylvie Olguin NP [address] [facility], [address] [place] [address] MSSA bacteremia (Primary Dx); Abscess [...] his Left thigh which was drained at [facility]- cultures did not grow anything.He [...] MSSA 05 February blood cultures MSSA ([facility]) susceptible to Cipro, gentamicin, daptomycin, erythromycin, oxacillin, vancomycin 05 February blood cultures no growth 07 February blood cultures MSSA ( [facility]) 08 February blood cultures no growth 12 February right thigh abscess MSSA ([facility]) Assessment/Plan MSSA Bactermia, blood cultures positive on the . Cleared on February 08. Currently on IV Cefazolin for a six week total. Tolerating it well. Left thigh abscess- drained at [facility], no growth on cultures. Will complete an ultrasound around03/17 at [facility] to determine if abscess has cleared. If [...] foot documented in this encounter Care Teams Field Ring Assembler Relationship Specialty Start Date End Date Mariella Ramon MD [address] [place] [address] PCP - General Family Medicine - Primary Care 02/23/22 documented as of this encounter
--- OUTSIDE RECORDS SUMMARY | 2024-09-06 12:51 | XMS_ITS | Encounter Summary ---
Author Organization [facility] Address [address] [place] [address] Care Team Providers Care Outpatient Coding Specialist Name Role Phone Mariella Ramon MD Primary Care Provider [phone] Reason for Visit * Reason Onset Date Comments IV Maintenance 03/20/2022 Encounter Details Date Type Department Care Team (Late st Contact Info) Description 03/20/2022 Telephone [facility] Infectious Disease - [facility] [address] [place], [place] [id number] Jerry Sams, DO [address] [facility], Level [address] [place] [address] IV Maintenance Social History Tobacco [...] Encounter - Maryjane Arce RN - 03/20/2022 0603 EDT Please see plan below per Dr. Sams. Order placed for bilateral thigh ultrasound to be completed at [facility] hospital 5-6 weeks from now. Faxed order to [facility] Radiology. Phoned Dr. Ramon's office at [facility]. Confirmed with their office Dr. Ramon will [...] up at the hospital in [facility]? ?? ID RN team. ??Patient will finish his 6 weeks of Ancef on 22 March. ??Patient has a visit with his primary care provider on Wednesday, at the [facility], Dr. Ramon, who had already told the [...] 1323 EDT Received call from Nicki at [facility] stating they have orders for patient ending treatment on 03/22/22. Nicki would like to receive orders to discontinue IV antibiotics and picc line. Fax # [phone] documented in this encounter Plan of Treatment Not on file documented as of this encounter Visit Diagnoses Diagnosis Abscess- Primary Cellulitis and abscess of unspecified site Abscess of left thigh Cellulitis and abscess of leg, except foot Abscess of right thigh Cellulitis and abscess of leg, except foot MSSA bacteremia documented in this encounter Care Teams Outpatient Coding Specialist Relationship Specialty Start Date End Date Mariella Ramon MD [address] [place] [address] PCP - General Family Medicine - Primary Care 02/23/22 documented as of this encounter
--- OUTSIDE RECORDS SUMMARY | 2024-09-06 12:51 | XMS_ITS | Encounter Summary ---
Author Organization [facility] Address [address] [place] [address] Care Team Providers Care Call Center Recruiter Name Role Phone Mariella Ramon MD Primary Care Provider [phone] Reason for Visit * Reason Comments Follow-up Encounter Details Date Type Department Care Team (Late st Contact Info) Description 05/06/2022 11:00 EDT Telemedicine [facility] Infectious Disease - [address] [phone] Jerry Sams, [address] [facility], [address] [place] [address] MSSA bacteremia (Primary Dx) Social [...] no growth 12 February right thigh abscess MSSA??([facility]) 02 March left thigh fluid collection no growth ?? Radiology: See official report below ?? 02 march IR report from [facility] 1. ??The anterior left thigh [...] note to primary care provider, Dr Ramon [phone] ?? It has been a pleasure seeing Mr. Ruiz in clinic today. All questions answered. ?? Jerry Sams DO Pager [phone] Infectious Diseases documented in this encounter Plan of Treatment Not on file documented as of this encounter Visit Diagnoses Diagnosis MSSA bacteremia- Primary documented in this encounter Care Teams Call Center Recruiter Relationship Specialty Start Date End Date Mariella Ramon MD [address] [place] [phone] PCP - General Family Medicine - Primary Care 02/23/22 documented as of this encounter
--- OUTSIDE RECORDS SUMMARY | 2024-09-06 12:51 | XMS_ITS ---
Author Organization Unknown Address [address] [place] [phone] Phone Care Team Providers Care Forge Shop Supervisor Name Role Phone DAVE Meza Attending Unavailable EVELIN Javier TUG HAND Unavailable LOLA Herr Primary Unavailable Results GRAM STAIN* - Collect Date/T vito: 11/15/2023 11:15 [facility] ID: [id number] [address] [place], [place], [id number] LOINC: 664-3 Test Value Unit Reference Range Code Code System Flag SOURCE- Other WBC s few [employer] Gram pos cocci NOVA GLUCOSE FINGER HEEL CAP ILLARY - Collect Date/Time: 11/15/2023 08:56 [facility] ID: [id number] [address] [place], [place], [id number] LOINC: 84105-2 Test Value Unit Reference Range Code Code System Flag GLUCOSE CAP 244 mg/dL L=70 H=116 79961-1 LOINC H NOVA GLUCOSE FINGER HEEL CAP ILLARY - Collect Date/Time: 11/15/2023 07:31 [facility] ID: [id number] [address] [place] [address], [id number] LOINC: 65812-5 Test Value Unit Reference Range Code Code System Flag GLUCOSE CAP 267 mg/dL L=70 H=116 20597-2 LOINC H Social History Type Status Start Date End Date Code Code Syst em Sex Male Vital Signs Vital Sign Value Unit Republic Value Republic Unit Date/Time Recent/Initial? Code Code System Body Mass Index 33.23 kg/m2 11/10/2023 12:45 Initial 62146 -5 [facility] Systolic Blood Pressure 176 mm[Hg] 11/15/2023 10:15 Most Recent 8480- 6 LOINC Diastolic Blood Pressure 87 mm[Hg] 11/15/2023 10:15 Most Recent 8462- 4 [facility] Systolic Blood Pressure 93 mm[Hg] 11/15/2023 09:01 Initial 8480- 6 [facility] Diastolic Blood Pressure 57 mm[Hg] 11/15/2023 09:01 Initial 8462- 4 [facility] Body Surface Area 2.23 m2 11/10/2023 12:45 Initial 3140- 1 [facility] Height 175.260 0 cm 69.00 in 11/10/2023 12:45 Initial 8302- 2 [facility] O2 Saturation 95 % 2023 10:15 Most Recent 35977 -5 [facility] O2 Saturation 100 % 2023 09:01 Initial 97154 -5 [facility] Pulse 64.0 /min 11/15/2023 10:15 Most Recent 8867- 4 [facility] Pulse 65.0 /min 11/15/2023 09:01 Initial 8867- 4 INC Respiration 12 /min 11/15/19 24 10:15 Most Recent 9279- 1 [facility] Respiration 11 /min 11/15/19 24 09:01 Initial 9279- 1 [facility] Temperature 36.5 Destiny 97.7 F 11/15/19 24 09:01 Initial 8310- 5 INC Weight 102.06 kg 225.00 lbs 11/10/2023 12:45 Initial 99637 -7 [facility] Hospital Discharge Instructions Should you have any questions prior to discharge, please contact a member of your healthcare team. If you have left the hospital and have any questions, please contact your primary care physician. Reason For Referral No Data Found Procedures Procedure Name Date Status Code Code Syste m Amputation, Toe; Interphalangeal Joint 11/15/2023 complete d 36906 CPT Anesthesia, Nerves/Muscles/T endons & Fascia, Lower Leg/Ankle/Foot; NOS 11/15/2023 completed 94248 CPT Allergies and Adverse Reactions Allergy Substance Reaction Severity Start Date Concern Status Co de Code System LISINOPRIL Active 62712 RxNorm Plan of Treatment MRI LOWER EXT W/O CONTRAST 08/06/2023 Encounters Encounter Diagnosis Start Date Code Code Sys tem Other chronic osteomyelitis, left ankle and foot 11/15 SNOMED-CT Personal Care Team Section Performer Name Performer Role Active Date Inactive Da te
--- OUTSIDE RECORDS SUMMARY | 2024-09-06 12:51 | XMS_ITS | Encounter Summary ---
Author Organization [facility] Address [address] [place] [address] Care Team Providers Care Lay Out Former Name Role Phone Mariella Ramon MD Primary Care Provider [phone] Reason for Visit * (Routine/Next Available) - Receiving Office to Obtain Authorization Specialty Diagnoses / Procedures Referred By Contac t Referred To Contact Procedures US OUTSIDE IMAGES BODY Unknown, Provider, MAIN Referral ID Status Reason Start Date Expiration Date Visits Requested Visits Authorized [id number] Receiving Office to Obtain Authorization 05/01/2022 1 1 Encounter Details Date Type Department Care Team (Latest Contact Info) Description 05/01/2022 16:06 EDT - 05/01/2022 23:59 EDT Hospital Encounter [facility] Secondary [place] Discharge Disposition: Home or [...] on filedocumented in this encounter Care Teams Lay Out Former Relationship Specialty Start Date End Date Mariella Ramon MD [address] [place] [address] PCP - General Family Medicine - Primary Care 02/23/22 documented as of this encounter
--- OUTSIDE RECORDS SUMMARY | 2024-09-06 12:52 | XMS_ITS | Encounter Summary ---
Author Organization [facility] Address [address] [place] [address] Care Team Providers Care Import/Export Analyst Name Role Phone Unknown, Provider Primary Care Provider Mariella Haq MD Primary Care Provider [phone] Encounter Details Date Type Department Care Team (Late st Contact Info) Description 02/06/2022 Lab Requisition [facility] Pathology & Laboratory Medicine - [address] [address] Outr Resulting Lab, Provider Social History Tobacco [...] Lyme Ab Negative Negative 02/09/2022 10:43 EDT [facility] Blood VENOUS BLOOD / Unknown 02/06/2022 8:25 EDT 02/06/2022 16:51 EDT Provider Outr Resulting Lab IMMUNOLOGY A ND SEROLOGY ORDERABLES [facility] [address] [place] [address] documented in this encounter Visit Diagnoses Not on filedocumented in this encounter Care Teams Import/Export Analyst Relationship Specialty Start Date End Date Unknown, Provider, PCP - General 02/20/22 02/22/22 Mariella Ramon MD [address] [place] [phone] PCP - General Family Medicine - Primary Care 02/23/22 documented as of this encounter
--- OUTSIDE RECORDS SUMMARY | 2024-09-06 12:52 | XMS_ITS | Encounter Summary ---
[place] [address] Care Team Providers Care Occupational Therapy Aides Teacher Name Role Phone Mariella Ramon MD Primary Care Provider [phone] Reason for Referral * Diagnostic Test (Emergency) - Closed Specialty Diagnoses / Procedures Referred By Contac t Referred To Contact Radiology Diagnoses Abscess of left thigh Procedures IR All Drainage Procedures Jasson Greenberg MD [address] [place] [address] [place] [address] Referral ID Status Reason Start Date Expiration Date V isits Requested Visits Authorized [id number] Closed Specialty Service Requested 03/02/2022 10/31/2022 1 1 Reason for Visit * Diagnostic Test (Emergency) - Closed Specialty Diagnoses / Procedures Referred By Contac t Referred To Contact Radiology Diagnoses Abscess of left thigh Procedures IR All Drainage Procedures Jasson Greenberg MD [address] [place] [address] [place] [address] Referral ID Status Reason Start Date Expiration Date V isits Requested Visits Authorized [id number] Closed Specialty Service Requested 03/02/2022 10/31/2022 1 1 Encounter Details Date Type Department Care Team (Late st Contact Info) Description 03/02/2022 1:01 PM EDT - 03/02/2022 11:59 PM EDT Hospital Encounter Radiology at [facility] [place], [facility] [place] [address] Jasson Greenberg MD [facility] [place] [address] Abscess of left thigh Discharge Disposition: Home [...] is during regular office hours, please call [phone]. If it is after regular office hours, or on weekends or holidays, please call [phone] and ask to speak to the [place] Inspector environmental services lead for Interventional Radiology. You have received medication [...] of : 1970 AGE: 51 y.o. Address: [address] [place] [address] (home) [phone] (work) Mobile: Telephone Information: Referring Provider: Jasson Greenberg REASON FOR VISIT: Order Questions Answers Where will study be performed? [facility] Radiology [120] Is the patient on anticoagulant [...] All Drainage Procedures 02/12/2022 Wilfrido Rojo MD [facility] INTERVENTIONL RAD Date/Procedure Meds given/comments 03/02/22 left [...] Service contacted by Jerry Sams MD at [facility] Infectious Disease clinic regarding the procedure request below. There are no answered order specific questions. Presenting Diagnosis/ Complaint: Ludy Ruiz is a 51 y.o. male with past medical history of type2 diabetes, sleep apnea, recent admission to [facility] with MSSA bacteremia and UTI. MRI 02/09 showed bilateral thigh collections. Ultrasound 02/10 showed the right collection to be drainable but not the left. IR placed right-sided thigh drain on 02/12/2022. Patient is was readmitted at [facility] with increased pain, erythema, and tenderness of the left thigh. IR was contacted by about aspirating/draining the left thigh, on 02/[address] showed the collection was too small to drain, which was communicated to [facility] team as documented in a consult note written by myself. On day of discharge (02/20/22) the collection had increased in size on ultrasound and we agreed to complete an outpatient drain placement once we received a fax with an order and recent H&P. This is documented in Paul Ennis's consult note dated 02/20/22. Interval history: The order from [facility] was received on 02/25/22. Today, 02/26 we received a call from Per Sams MD from [facility] Infectious Disease about mr Ruiz who is currently in clinic and presenting with increasing size of the left thigh collection. Per Dr. Sams his labs today show a normal WBC, and additionally he has had no fevers. He is continuing on antibiotic therapy with ID at [facility], and they are requesting drain placement. Past Medical/Surgical History: There is no problem list on file for this patient. No past medical history on file. Past Surgical History: Procedure Laterality Date ??? IR ALL DRAINAGE PROCEDURES 02/12/2022 IR All Drainage Procedures 02/12/2022 Wilfrido Rojo MD [facility] RAD Medications: Current Outpatient Medications on [...] as per HPI Labs: normal WBC at [facility] ID clinic per Dr. Sams Imaging: OSH Ultrasound dated 02/20/22 Physical Exam: Pending (to be performed in angio the day of procedure) ASA: Pending (to be assessed in angio the day of procedure) Mallampati Class: Pending (to be assessed in angio the day of procedure) Assessment: 51 y.o. male with bilateral thigh soft tissue collections presenting to [facility] for drain placement in the setting [...] who have questions please contact the health health care social worker that requested your imaging first. ? Electronically signed by: Thompson Winslow MD, [facility] ([phone]), at 03/03/2022 8:52 AM Narrative 03/03/2022 8:52 [...] patients who have questions please contactthe health health care social worker that requested your imaging first. Electronically signed by: Thompson Winslow MD, [facility]([phone]), at 03/03/2022 8:52 AM Jasson Greenberg MD IMG IR ORDER NORMA * Anaerobic Culture (03/02/2022 2:28 PM EDT) Anaerobic Culture No anaerobic organisms isolated [facility] Abscess STRUCTURE OF LEFT THIGH / Unknown 03/02/2022 2:28 PM EDT 03/02/2022 3:47 PM EDT Comment:Anterior left thigh Narrative Resulting Agency Comment Spec In Lab Jerry Cruz MD MICROBIOLOGY - GENER AL ORDERABLES Performing Organization Address [facility] [place] [address] * Abscess/Wound Aspirate Culture (03/02/2022 2:28 PM EDT) Abscess/Wound Aspirate Culture No growth [facility] Gram Stain No Neutrophils seen. No microorganisms seen. [facility] Abscess STRUCTURE OF LEFT THIGH / Unknown 03/02/2022 2:28 PM EDT 03/02/2022 3:47 PM EDT Comment:Anterior left thigh Narrative Resulting Agency Comment Spec In Lab Jerry Cruz MD MICROBIOLOGY - GENER AL ORDERABLES Performing Organization Address City/[facility]/ZIP Co de Phone [place] [address] * Anaerobic Culture (03/02/2022 2:28 PM EDT) Anaerobic Culture No anaerobic organisms isolated [facility] Abscess STRUCTURE OF LEFT THIGH / Unknown 03/02/2022 2:28 PM EDT 03/02/2022 3:38 PM EDT Comment:Left lateral thigh Narrative Resulting Agency Comment Spec In Lab Jerry Cruz MD MICROBIOLOGY - GENER AL ORDERABLES Performing Organization Address [facility] Co de Phone Number [facility] [place] [address] * Abscess/Wound Aspirate Culture (03/02/2022 2:28 PM EDT) Abscess/Wound Aspirate Culture No growth [facility] Gram Stain No Neutrophils seen. No microorganisms seen. [facility] Abscess STRUCTURE OF LEFT THIGH / Unknown 03/02/2022 2:28 PM EDT 03/02/2022 3:38 PM EDT Comment:Left lateral thigh Narrative Resulting Agency Comment Spec In Lab Jerry Cruz MD MICROBIOLOGY - GENER AL ORDERABLES Performing Organization Address [facility] [place] [address] documented in this encounter Visit Diagnoses Diagnosis [...] mcg documented in this encounter Care Teams Occupational Therapy Aides Teacher Relationship Specialty Start Date End Date Mariella Ramon MD [address] [place] [address] PCP - General Family Medicine 06/01/19 documented as of this encounter
--- OUTSIDE RECORDS SUMMARY | 2024-09-06 12:52 | XMS_ITS | Encounter Summary ---
Author Organization [facility] [place] [address] Care Team Providers Care Hr Internship Name Role Phone Mariella Ramon MD Primary Care Provider [phone] Encounter Details Date Type Department Care Team (Late st Contact Info) Description 02/09/2022 Ancillary Procedure Radiology Library at [facility] [place], [facility] [place] [phone] Mariella Ramon MD [address] [place], [place] [id number] Social History Tobacco Use Types Packs/Day Years [...] Lower Extremity (02/09/2022 12:00 AM EDT) Narrative [facility] - 02/10/2022 8:41 AM EDT This exam is auto-finalizing. It's purpose is for storage only. Mariella Ramon MD G FILM LIBRARY ORD ERABLES [place], [place] documented in this encounter Visit Diagnoses Not on filedocumented in this encounter Care Teams Hr Internship Relationship Specialty Start Date End Date Mariella Ramon MD [address] [place] [address] PCP - General Family Medicine 06/01/19 documented as of this encounter
--- OUTSIDE RECORDS SUMMARY | 2024-09-06 12:52 | XMS_ITS | Encounter Summary ---
[place] [address] Care Team Providers Care Retail Consultant Name Role Phone Mariella Ramon MD Primary Care Provider [phone] Reason for Referral * Diagnostic Test (Routine) - Closed Specialty Diagnoses / Procedures Referred By Contac t Referred To Contact Radiology Diagnoses MSSA bacteremia Urinary tract infection without hematuria, site unspecified Abscess of thigh Pain of thigh, unspecified laterality Procedures IR All Drainage Procedures Navneet Murillo MD [address] [place] [address] [place] [address] Referral ID Status Reason Start Date Expiration Date V isits Requested Visits Authorized [id number] Closed Specialty Service Requested 02/12/2022 10/31/2022 1 1 Reason for Visit * Diagnostic Test (Routine) - Closed Specialty Diagnoses / Procedures Referred By Contac t Referred To Contact Radiology Diagnoses MSSA bacteremia Urinary tract infection without hematuria, site unspecified Abscess of thigh Pain of thigh, unspecified laterality Procedures IR All Drainage Procedures Navneet Murillo MD [address] [place] [address] [place] [address] Referral ID Status Reason Start Date Expiration Date V isits Requested Visits Authorized [id number] Closed Specialty Service Requested 02/12/2022 10/31/2022 1 1 Encounter Details Date Type Department Care Team (Latest Contact Info) Description 02/12/2022 9:23 AM EDT - 02/12/2022 11:59 PM EDT Hospital [place] [address] Navneet Murillo MD [address] [place] [address] MSSA bacteremia; Urinary tract infection without hematuria, [...] is during regular office hours, please call [phone]. If it is after regular office hours, or on weekends or holidays, please call [phone] and ask to speak to the [employer] underwriting operations manager for Interventional Radiology. XX You have received [...] data??Abscess/Wound Aspirate Culture Abscess; Leg, Right Order: [id number] Status: Final result ?? Visible to patient: No (not released) ?? Next appt: None ?? Specimen Information: Leg, Right; Abscess ?? 0 Result Notes Component 5 d ago Abscess/Wound Aspirate Culture Rare Staphylococcus aureus??Abnormal?? Gram Stain ??Abnormal?? Many Neutrophils seen Rare Gram Positive Cocci seen Organism Staphylococcus aureus??Abnormal?? Organism Gram Positive Cocci??Abnormal?? Resulting Agency [facility] Lab Susceptibility Staphylococcus aureus VITEK 2 METHOD Clindamycin Sensitive Erythromycin Sensitive Gentamicin Sensitive 1 Oxacillin Sensitive 2 Tetracycline Sensitive Trimethoprim/Sulfa Sensitive Vancomycin Sensitive ?? 1 Gentamicin is not appropriate for [place]-therapy. 2 Oxacillin (methicillin) susceptibility is a surrogate [...] Other Results from 02/12/2022 POCT Glucose Order: [id number] Status: Final result ?? Visible to patient: No (not released) ?? Next appt: None ?? 0 Result Notes Component Ref Range & Units 5 d ago POC Glucose 65 - 199 mg/dL 142 Comment: Supplemental ranges: <140 mg/dL before meals <180 mg/dL all other times of the day Resulting Agency [facility] Lab Specimen Collected: 02/12/22 10:16 Last [...] ?? 1 Gentamicin is not appropriate for [place]-therapy. 2 Oxacillin (methicillin) susceptibility is a surrogate for the oral and parenteral cephalosporins, beta-lactam combination agents (amoxicillin-clavulanate, ampicillin-sulbactam and piperacillin-tazobactam) and carbapenem agents. ??It is NOT a surrogate for penicillin, ampicillin or piperacillin susceptibility. Linear View Reference Links Lab Handbook ?? Lab Information Lab unless otherwise noted: [facility] [address] Housekeeping Director: Sierra Brandt M.D., M.Sc., F.R.C.Path ? Results Routing Details Abscess/Wound Aspirate Culture Abscess; Leg, Right (Order #[id number]) on 02/12/22 Base Name & eD-H Order Name Info Abscess/Wound Aspirate Culture Abscess; Leg, Right (Order #[id number]) on 02/12/22 Printer Friendly Result Report Printable Result Report * Julianne Hobbs RN - 02/12/2022 11:02 AM EDT [facility] Name: LINO RUIZ Date of : 1970 AGE: 51 y.o. Address: [address] [place] [address] (home) [phone] (work) Mobile: Telephone Information: Referring Provider: Navneet Murillo REASON FOR VISIT: U/S Guided Thigh Drain Placement Order Questions Answers Where will study be performed? [facility] Radiology [120] Is the patient on [...] DM and sleep apnea, currently admitted to [facility] with MSSA bacteremia and UTI.He has tenderness [...] see scanned docs for current medications at [facility] Current Outpatient Medications on File Prior to [...] DM and sleep apnea, currently admitted to [facility] with MSSA bacteremia and UTI. He appears [...] DM and sleep apnea. Currently admitted to [facility] with MSSA bacteremia and UTI. MRI concerning [...] EDT) Abscess/Wound Aspirate Culture Rare Staphylococcus aureus(A) [facility] Gram Stain Many Neutrophils seen Rare Gram Positive Cocci seen (A) [facility] Organism Staphylococcus aureus(A) [facility] Organism Gram Positive Cocci(A) [facility] Abscess STRUCTURE OF RIGHT LOWER LIMB / Unknown 02/12/2022 11:42 AM EDT 02/12/2022 12:23 PM EDT Narrative Resulting Agency Comment Spec In Lab Organism Antibiotic Method Susceptibility Staphylococcus aureus Clindamycin VITEK 2 METHOD Sensitive Staphylococcus aureus Erythromycin VITEK 2 METHOD Sensitive Staphylococcus aureus Gentamicin VITEK 2 METHOD Sensitive Comment:Gentamicin i s not appropriate for [place]-therapy. Staphylococcus aureus Oxacillin VITEK 2 METHOD Sensitive [...] - GENER AL ORDERABLES Performing Organization Address City/[facility]/ZIP Co de Phone Number [facility] [place] [address] * POCT Glucose (02/12/2022 10:16 AM EDT) Glucose, POC 142 65 - 199 mg/dL [facility] Comment: Supplemental ranges: <140 mg/dL before meals <180 mg/dL all other times of the day Blood 02/12/2022 10:1 6 AM EDT 02/12/2022 10:16 AM EDT Navneet Murillo MD POINT OF CARE TEST O RDERABLES Performing Organization Address [facility]/ZIP Co de Phone Number [facility] [place] [address] documented in this encounter Visit Diagnoses Diagnosis [...] mLs documented in this encounter Care Teams Retail Consultant Relationship Specialty Start Date End Date Mariella Ramon MD [address] [place] [address] PCP - General Family Medicine 06/01/19 documented as of this encounter
--- OUTSIDE RECORDS SUMMARY | 2024-09-06 12:52 | XMS_ITS | Encounter Summary ---
Author Organization [facility] Address [address] [place] [address] Care Team Providers Care Restaurant Associate Name Role Phone Unknown, Provider Primary Care Provider Mariella Haq MD Primary Care Provider [phone] Encounter Details Date Type Department Care Team (Late st Contact Info) Description 07/26/2021 Lab Requisition [facility] Pathology & Laboratory Medicine - [address] [address] Dexter Breen, DPZana [address] [place] [address] Plantar fascial fibromatosis; Achilles tendinitis, right [...] explore management options, if applicable. 07/30/2021 17:24 [facility] Final Diagnosis A. SOFT TISSUE, LEFT PLANTAR, EXCISION: - Plantar fibromatosis. 07/30/2021 17:24 [facility] Attestation There was significant resident/fellow involvement in the diagnostic evaluation of this case. By the signature below, the attending physician certifies that they have personally conducted a gross and/or microscopic examination of the described specimens and rendered or confirmed the above diagnosis. 07/30/2021 17:24 [facility] at 1724 Clinical History Left plantar fibrosis; clinical diagnosis code: M72.2, M76.61, S86.012A 07/30/2021 17:24 [facility] Gross Description A. Received [...] A1-A3. ERIC ABRAHAM(ASCP) 07/28/2021 8:43 07/30/2021 17:24 [facility] Resident/Danny w: Ben Zacarias DO 07/30/2021 17:24 [facility] Performing Lab [facility] 17:24 [facility] Scanned Images 07/30/2021 17:24 [facility] Tissue SOFT TISSUE / Unknown 07/25/2021 10:48 EDT 07/26/2021 10:52 EDT Dexter Breen DPM PATHOLOGY ORDERA BLES [facility] [address] [place] [address] documented in this encounter Visit Diagnoses Diagnosis Plantar fascial fibromatosis Achilles tendinitis, right leg Strain of left Achilles tendon, initial encounter documented in this encounter Care Teams Restaurant Associate Relationship Specialty Start Date End Date Unknown, Provider, PCP - General 02/20/22 02/22/22 Mariella Ramon MD [address] [place] [address] PCP - General Family Medicine - Primary Care 02/23/22 documented as of this encounter
--- OUTSIDE RECORDS SUMMARY | 2024-09-06 12:52 | XMS_ITS | Encounter Summary ---
Author Organization [facility] [place] [address] Care Team Providers Care Personal Investment Adviser Name Role Phone Mariella Ramon MD Primary Care Provider [phone] Encounter Details Date Type Department Care Team (Late st Contact Info) Description 02/16/2022 6:10 PM EDT Ancillary Procedure Radiology Library [place] [phone] Mariella Ramon MD [address] [place], [place] [id number] Social History Tobacco Use Types Packs/Day Years [...] auto-finalizing. It's purpose is for storage only. Mareilla Ramon MD G FILM LIBRARY ORD ERABLES [place], [place] documented in this encounter Visit Diagnoses Not on filedocumented in this encounter Care Teams Personal Investment Adviser Relationship Specialty Start Date End Date Mariella Ramon MD [address] [place] [address] PCP - General Family Medicine 06/01/19 documented as of this encounter
--- OUTSIDE RECORDS SUMMARY | 2024-09-06 12:52 | XMS_ITS | Encounter Summary ---
Author Organization [facility] [place] [address] Care Team Providers Care Director Ehs Name Role Phone Mariella Ramon MD Primary Care Provider [phone] Encounter Details Date Type Department Care Team (Late st Contact Info) Description 02/16/2022 8:45 PM EDT Ancillary Procedure Radiology Library at [facility] [place] [phone] Mariella Ramon MD [address] [place] [address] Social History Tobacco Use Types [...] Ramon MD IMG FILM LIBRARY ORD ERABLES [place], [place] documented in this encounter Visit Diagnoses Not on filedocumented in this encounter Care Teams Director Ehs Relationship Specialty Start Date End Date Mariella Ramon MD [address] [place] [address] PCP - General Family Medicine 06/01/19 documented as of this encounter
--- OUTSIDE RECORDS SUMMARY | 2024-09-06 12:52 | XMS_ITS | Encounter Summary ---
[place] [address] Care Team Providers Care Market Researcher Name Role Phone Mariella Ramon MD Primary Care Provider [phone] Encounter Details Date Type Department Care Team (Late st Contact Info) Description 02/16/2022 [place] [address] Calvin Randolph MD [facility] [place] [address] Abscess of thigh Social History Tobacco Use [...] Consult Note Patient Name: Lino Ruiz : [id number] MR#: [id number] Greenberg at [facility] regarding the left thigh fluid collection being [...] Interventional & Diagnostic Radiology IR Team Pager: [phone] 02/17/2022 documented in this encounter H&P Notes * Calvin Randolph MD - 02/16/2022 6:29 PM EDT INTERVENTIONAL RADIOLOGY FOCUSED H&P and PRE-PROCEDURE NOTE: PCP: Mariella Ramon MD Referring Provider: Dr. Hanley at [facility]. Planned Procedure: Planned procedure: Left thigh drain [...] 2 diabetes, sleep apnea, recent admission to [facility] with MSSA bacteremia and UTI. MRI 02/09 showed bilateral thigh collections. Ultrasound 02/10 showed the right collection to be drainable but not the left. IR placed right-sided thigh drain on 02/12/2022. Patient is now readmitted at [facility] with increased pain, erythema, and tenderness [...] to discontinue (and days held): None 02/16/2022 bAad Agustín PGY-6 Past Medical/Surgical History: There is no problem list on file for this patient. No past medical history on file. Past Surgical History: Procedure Laterality Date ??? IR ALL DRAINAGE PROCEDURES 02/12/2022 IR All Drainage Procedures 02/12/2022 Wilfrido Rojo MD [facility] INTERVENTIONL RAD Medications: Current Outpatient Medications on [...] foot documented in this encounter Care Teams Market Researcher Relationship Specialty Start Date End Date Mariella Ramon MD [address] [place] [address] PCP - General Family Medicine 06/01/19 documented as of this encounter
--- OUTSIDE RECORDS SUMMARY | 2024-09-06 12:52 | XMS_ITS | Encounter Summary ---
Author Organization [facility] [place] [address] Care Team Providers Care Lance Crewmember/Mlrs Sergeant Name Role Phone Mariella Ramon MD Primary Care Provider [phone] Encounter Details Date Type Department Care Team (Late st Contact Info) Description 02/07/2022 Ancillary Procedure Radiology Library at [facility] [place] [phone] Mariella Ramon MD [address] [place], [place] [phone] Social History Tobacco Use Types Packs/Day Years [...] Lower Extremity (02/07/2022 12:00 AM EDT) Narrative [facility] - 02/16/2022 6:07 PM EDT This exam is auto-finalizing. It's purpose is for storage only. Mariella Ramon MD G FILM LIBRARY ORD ERABLES [place], [place] documented in this encounter Visit Diagnoses Not on filedocumented in this encounter Care Teams Lance Crewmember/Mlrs Sergeant Relationship Specialty Start Date End Date Mariella Ramon MD [address] [place] [address] PCP - General Family Medicine 06/01/19 documented as of this encounter
--- OUTSIDE RECORDS SUMMARY | 2024-09-06 12:52 | XMS_ITS | Encounter Summary ---
Author Organization [facility] [place] [address] Care Team Providers Care Vacuum Forming Machine Operator Name Role Phone Mariella Ramon MD Primary Care Provider [phone] Encounter Details Date Type Department Care Team (Late st Contact Info) Description 02/06/2022 Ancillary Procedure Radiology Library at [facility] [place] [phone] Mariella Ramon MD [address] [place], [place] [phone] Social History Tobacco Use Types Packs/Day Years [...] Ramon MD G FILM LIBRARY ORD ERABLES [facility] [place] documented in this encounter Visit Diagnoses Not on filedocumented in this encounter Care Teams Vacuum Forming Machine Operator Relationship Specialty Start Date End Date Mariella Ramon MD [address] [place] [address] PCP - General Family Medicine 06/01/19 documented as of this encounter
--- OUTSIDE RECORDS SUMMARY | 2024-09-06 12:52 | XMS_ITS | Encounter Summary ---
Author Organization [facility] [place] [address] Care Team Providers Care Bow Making Machine Operator Name Role Phone Mariella Ramon MD Primary Care Provider [phone] Encounter Details Date Type Department Care Team (Late st Contact Info) Description 02/10/2022 1:40 PM EDT Ancillary Procedure Radiology Library at [facility] [place] [phone] Mariella Ramon MD [address] [place], [place] [phone] Social History Tobacco Use Types Packs/Day Years [...] Ramon MD G FILM LIBRARY ORD ERABLES [place], [place] documented in this encounter Visit Diagnoses Not on filedocumented in this encounter Care Teams Bow Making Machine Operator Relationship Specialty Start Date End Date Mariella Ramon MD [address] [place] [address] PCP - General Family Medicine 06/01/19 documented as of this encounter
--- OUTSIDE RECORDS SUMMARY | 2024-09-06 12:52 | XMS_ITS | Encounter Summary ---
Author Organization [facility] Address [address] [place] [address] Care Team Providers Care Manager Of Finance Name Role Phone Jerry Ibrahim MD Primary Care Provider [phone] Unknown, Provider Primary Care Provider Mariella Haq MD Primary Care Provider [phone] Encounter Details Date Type Department Care Team (Late st Contact Info) Description 01/09/2020 Lab Requisition [facility] Pathology & Laboratory Medicine - [address] [address] Andi Farrell MD [address] [place] [address] [place] [address] Encounter for other general examination [...] plantar fibromatosis. See comment. 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 Forestry Fire Aide slides of this case were reviewed at the intradepartmental consultation conference. 01/18/2020 9:47 [facility] Attestation There was significant resident/fellow involvement in the diagnostic evaluation of this case. By the signature below, the attending physician certifies that they have personally conducted a gross and/or microscopic examination of the described specimens and rendered or confirmed the above diagnosis. 01/18/2020 9:47 [facility] at 0947 Clinical History Mass arch right foot 01/18/2020 9:47 [facility] Gross Description Received in formalin [...] Goins MD 01/09/2020 14:51 01/18/2020 9:47 EDT [facility] Resident/Fell ow: Sudarshan Goins MD 01/18/2020 9:47 T [facility] Scanned Images 01/18/2020 9:47 [facility] Tissue SOFT TISSUE / Unknown 01/08/2020 15:35 EDT 01/09/2020 9:47 EDT Andi Farrell MD PATHOLOGY ORDERABLES [facility] [address] [place] [address] documented in this encounter Visit Diagnoses Diagnosis Encounter for other general examination documented in this encounter Care Teams Manager Of Finance Relationship Specialty Start Date End Date Jerry Ibrahim MD [address] [place] [address] PCP - General 11/01/19 02/11/20 Unknown, Provider, MD [address] [place] [address] PCP - General 02/20/22 02/22/22 Mariella Ramon MD [address] [place] [address] PCP - General Family Medicine - Primary Care 02/23/22 documented as of this encounter
--- OUTSIDE RECORDS SUMMARY | 2024-09-06 12:52 | XMS_ITS | Clinical Summary ---
Author Organization [facility] [place] [address] Care Team Providers Care Operations Agent Name Role Phone Mariella Ramon MD Primary Care Provider [phone] Allergies Active Allergy Reactions Criticality Noted Date [...] Status decision made by: Patient Care Teams Operations Agent Relationship Specialty Start Date End Date Mariella Ramon MD [address] [place], [place] [address] PCP - General Family Medicine 06/01/19
--- OUTSIDE RECORDS SUMMARY | 2024-09-06 12:52 | XMS_ITS | Encounter Summary ---
[place] [address] Care Team Providers Care Med Spa Manager Name Role Phone Mariella Ramon MD Primary Care Provider [phone] Encounter Details Date Type Department Care Team (Late st Contact Info) Description 02/26/2022 Orders [place] [address] Davi Bower MD [facility] [place] [address] Social History Tobacco Use Types Packs/Day Years [...] Service contacted by Jerry Sams MD at [facility] Infectious Disease clinic regarding the procedure request below. There are no answered order specific questions. Presenting Diagnosis/ Complaint: Lino Ruiz is a 51 y.o. male with past medical history of type2 diabetes, sleep apnea, recent admission to [facility] with MSSA bacteremia and UTI. MRI 02/09 showed bilateral thigh collections. Ultrasound 02/10 showed the right collection to be drainable but not the left. IR placed right-sided thigh drain on 02/12/2022. Patient is was readmitted at [facility] with increased pain, erythema, and tenderness of the left thigh. IR was contacted by about aspirating/draining the left thigh, on 02/[address] showed the collection was too small to drain, which was communicated to [facility] team as documented in a consult note written by myself. On day of discharge (02/20/22) the collection had increased in size on ultrasound and we agreed to complete an outpatient drain placement once we received a fax with an order and recent H&P. This is documented in Paul Ennis's consult note dated 02/20/22. Interval history: The order from [facility] was received on 02/25/22. Today, 02/26 we received a call from Per Sams MD from [facility] Infectious Disease about mr Ruiz who is currently in clinic and presenting with increasing size of the left thigh collection. Per Dr. Sams his labs today show a normal WBC, and additionally he has had no fevers. He is continuing on antibiotic therapy with ID at [facility], and they are requesting drain placement. Past Medical/Surgical History: There is no problem list on file for this patient. No past medical history on file. Past Surgical History: Procedure Laterality Date ??? IR ALL DRAINAGE PROCEDURES 02/12/2022 IR All Drainage Procedures 02/12/2022 Wilfrido Rojo MD [facility] INTERVENTIONL RAD Medications: Current Outpatient Medications [...] as per HPI Labs: normal WBC at [facility] ID clinic per Dr. Sams Imaging: OSH Ultrasound dated 02/20/22 Physical Exam: Pending (to be performed in angio the day of procedure) ASA: Pending (to be assessed in angio the day of procedure) Mallampati Class: Pending (to be assessed in angio the day of procedure) Assessment: 51 y.o. male with bilateral thigh soft tissue collections presenting to [facility] for drain placement in the setting [...] on filedocumented in this encounter Care Teams Med Spa Manager Relationship Specialty Start Date End Date Mariella Ramon MD [address] [place] [address] PCP - General Family Medicine 06/01/19 documented as of this encounter
--- OUTSIDE RECORDS SUMMARY | 2024-09-06 12:52 | XMS_ITS | Encounter Summary ---
Author Organization [facility] [place] [address] Care Team Providers Care Crop Pest Control Specialist Name Role Phone Mariella Ramon MD Primary Care Provider Encounter Details Date Type Department Care Team (Late st Contact Info) Description 02/17/2022 Telephone Cardiology at [address] [phone] Marizol Lu PA [address] [address] Social History Tobacco Use Types Packs/Day Years [...] AM Referring Provider: Dr. Greenberg Patient [facility]: [facility] Past Medical History: ?? DM ?? MSSA [...] the patient condition. ERIC Lorenzo 02/17/2022 Pager [phone] I have not personally reviewed EKGs. 02/17/2022 documented in this encounter Plan of Treatment Not on file documented as of this encounter Visit Diagnoses Not on filedocumented in this encounter Care Teams Crop Pest Control Specialist Relationship Specialty Start Date End Date Mariella Ramon MD [address] [place] [address] PCP - General Family Medicine 06/01/19 documented as of this encounter
--- OUTSIDE RECORDS SUMMARY | 2024-09-06 12:52 | XMS_ITS | Encounter Summary ---
[place] [address] Care Team Providers Care Machine Silk Screen Printer Name Role Phone Mariella Ramon MD Primary Care Provider [phone] Reason for Referral * Consultation (Routine) - Authorized Specialty Diagnoses / Procedures Referred By Contac t Referred To Contact [facility] Diagnoses Low back pain, unspecified back pain laterality, unspecified chronicity, unspecified whether sciatica present low back pain/h/o diabetic foot issues/MRI 02/22/24 in e-DH/Tried PT Mariella Ramon MD [address] [place] [address] [facility] [place] [address] Referral ID Status Reason Start Date Expiration Date Visits Requested Visits Authorized [id number] Authorized Consult, Test & Treat PCP Updated and/or Approved 02/14/2024 02/13/2025 1 1 Encounter Details Date Type Department Care Team (Latest Contact Info) Description 02/22/2024 Transcribe Orders eDH Incoming Referrals [phone] Mariella Ramon MD [address] [place] [address] Low back pain, unspecified back [...] present documented in this encounter Care Teams Machine Silk Screen Printer Relationship Specialty Start Date End Date Mariella Ramon MD [address] [place] [address] PCP - General Family Medicine 06/01/19 documented as of this encounter
--- OUTSIDE RECORDS SUMMARY | 2024-09-06 12:52 | XMS_ITS | Encounter Summary ---
[place] [address] Care Team Providers Care Edge Stainer Name Role Phone Mariella Ramon MD Primary Care Provider [phone] Reason for Referral * Diagnostic Test (Routine) - Closed Specialty Diagnoses / Procedures Referred By Contac t Referred To Contact Radiology Diagnoses Low back pain, unspecified back pain laterality, unspecified chronicity, unspecified whether sciatica present Procedures MRI Lumbar Spine wo Contrast (Generic) Mariella Ramon MD [address] [place] [address] [place] [address] Referral ID Status Reason Start Date Expiration Date V isits Requested Visits Authorized [id number] Closed Specialty Service Requested 02/15/2024 08/16/2025 1 1 Reason for Visit * Diagnostic Test (Routine) - Closed Specialty Diagnoses / Procedures Referred By Contac t Referred To Contact Radiology Diagnoses Low back pain, unspecified back pain laterality, unspecified chronicity, unspecified whether sciatica present Procedures MRI Lumbar Spine wo Contrast (Generic) Mariella Ramon MD [address] [place] [address] [place] [address] Referral ID Status Reason Start Date Expiration Date V isits Requested Visits Authorized [id number] Closed Specialty Service Requested 02/15/2024 08/16/2025 1 1 Encounter Details Date Type Department Care Team (Latest Contact Info) Description 02/22/2024 6:57 AM EDT - 02/22/2024 11:59 PM EDT [place] [address] Mariella Ramon MD [address] [place] [address] Low back pain, unspecified back pain laterality, [...] (Generic) (02/22/2024 7:50 AM EDT) WORKSTATION ID [id number] [facility] Anatomical Region Laterality Modality L-spine Magnetic Resonan [...] who have questions please contact the health animal care specialist that requested your imaging first. ? Electronically signed by: Navneet Gagnon MD, [facility] ([phone]), at 02/22/2024 3:08 PM Narrative 02/22/2024 3:08 [...] The normal appearing conus terminates at the [id number]. Visualized retroperitoneal structures are unremarkable. Findings at [...] the clinical situation (Reference- Michael Et Al, [email or web address]). Findings: (Prevalence in patients without low back [...] patients who have questions please contactthe health animal care specialist that requested your imaging first. Mariella Ramon MD IMG MRI ORDERABLES documented in this encounter Visit Diagnoses Diagnosis Low back pain, unspecified back pain laterality, unspecified chronicity, unspecified whether sciatica present documented in this encounter Care Teams Edge Stainer Relationship Specialty Start Date End Date Mariella Ramon MD [address] [place] [address] PCP - General Family Medicine 06/01/19 documented as of this encounter
--- OUTSIDE RECORDS SUMMARY | 2024-09-06 12:52 | XMS_ITS | Encounter Summary ---
Author Organization [facility] [place] [address] Care Team Providers Care Wash Oil Pump Operator Name Role Phone Mariella Ramon MD Primary Care Provider [phone] Encounter Details Date Type Department Care Team (Late st Contact Info) Description 02/07/2022 12:05 AM EDT Ancillary Procedure Radiology Library at [facility] [place] [phone] Mariella Ramon MD [address] [place], [place] [id number] Social History Tobacco Use Types Packs/Day Years [...] Ramon MD IMG FILM LIBRARY ORD ERABLES [place], [place] documented in this encounter Visit Diagnoses Not on filedocumented in this encounter Care Teams Wash Oil Pump Operator Relationship Specialty Start Date End Date Mariella Ramon MD [address] [place] [address] PCP - General Family Medicine 06/01/19 documented as of this encounter
--- OUTSIDE RECORDS SUMMARY | 2024-09-06 12:52 | XMS_ITS | Encounter Summary ---
Author Organization [facility] [place] [address] Care Team Providers Care Casino Floor Walker Name Role Phone Mariella Ramon MD Primary Care Provider [phone] Encounter Details Date Type Department Care Team (Late st Contact Info) Description 02/09/2022 12:05 AM EDT Ancillary Procedure Radiology Library at [facility] [place] [phone] Mariella Ramon MD [address] [place], [place] [id number] Social History Tobacco Use Types Packs/Day Years [...] MD G FILM LIBRARY ORD ERABLES [place] documented in this encounter Visit Diagnoses Not on filedocumented in this encounter Care Teams Casino Floor Walker Relationship Specialty Start Date End Date Mariella Ramon MD [address] [place] [address] PCP - General Family Medicine 06/01/19 documented as of this encounter
--- OUTSIDE RECORDS SUMMARY | 2024-09-06 12:52 | XMS_ITS | Encounter Summary ---
Author Organization [facility] [place] [address] Care Team Providers Care Boilermaker Central Steam Plant Name Role Phone Mariella Ramon MD Primary Care Provider [phone] Encounter Details Date Type Department Care Team (Late st Contact Info) Description 02/20/2022 11:05 AM EDT Ancillary Procedure Radiology Library at [facility] [place] [phone] Mariella Ramon MD [address] [place], [place] [id number] Social History Tobacco Use Types Packs/Day Years [...] G FILM LIBRARY ORD ERABLES [facility] [place] documented in this encounter Visit Diagnoses Not on filedocumented in this encounter Care Teams Boilermaker Central Steam Plant Relationship Specialty Start Date End Date Mariella Ramon MD [address] [place] [address] PCP - General Family Medicine 06/01/19 documented as of this encounter
--- OUTSIDE RECORDS SUMMARY | 2024-09-06 12:52 | XMS_ITS | Encounter Summary ---
[place] [address] Care Team Providers Care Manager Clinical Applications Name Role Phone Jerry Ibrahim MD Primary Care Provider [phone] Encounter Details Date Type Department Care Team (Late st Contact Info) Description 10/21/2013 Orders [place] [address] Edd Simmons MD [facility] [place] [address] Social History Tobacco Use Types Packs/Day Years [...] filedocumented in this encounter Care Teams Manager Clinical Applications Relationship Specialty Start Date End Date Jerry Ibrahim MD [address] [place], [place] [id number] PCP - General 09/23/10 05/31/19 documented as of this encounter
[2024-09-06 13:16] LABS: D-Dimer 425 ng/mlFEU (<500)
== END 2024-09-06 12:43 | disposition home or self-care (01) ==
LOC: LBO 12:42
PROVIDERS: PCP Internal Medicine; Visit Provider Nurse Practitioner Family
DX: R05.9 Cough, unspecified (principal)
CPT/HCPCS: 36415; 85379

== ENCOUNTER 2025-01-29 19:38 | Emergency (ER) | payer BC, SELFPAY ==
[2025-01-29] VITALS (43 sets, daily range): BP systolic 166–195; BP diastolic 88–97; PULSE 76–90; RESP 14–16; TEMP 35.8; O2SAT 92–97
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
[2025-01-29] MEDS: Acetaminophen 500 MG TAB 1000 MG PO (19:49)
--- NOTE | 2025-01-29 19:49 | ED.GENADUL_ITS ---
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 current Alcohol Intake frequency: holidays/special occasions only Alcohol type: beer Drug use: Never Substance use type: does not use Household members: none Housing: house Number of Children: 0 current occupation: employed - [employer]. Current gender identity: male Additional Social history: [employer]
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
[2025-01-29 20:55] LABS: Abs Immature Grans 0.02 10^3/uL (0.0-0.06); Absolute Basophil Count 0.04 10^3/uL (0.0-0.2); Absolute Eosinophil Count 0.06 10^3/uL (0.0-0.7); Absolute Lymphocyte Count 0.94 10^3/uL (1.2-3.4); Absolute Monocyte Count 0.49 10^3/uL (0.1-0.8); Absolute Neutrophil Count 4.89 10^3/uL (1.2-6.7); Basophils % 0.6 %; Eosinophils % 0.9 %; HCT 41.6 % (40.0-50.0); HGB 14.1 g/dL (13.5-17.5); Immature Grans % 0.3 %; Lymphocytes % 14.6 %; MCHC 33.9 % (32.0-36.0); MCV 91 fL (80-95); MPV 9.9 fL (8.0-11.0); Monocytes % 7.6 %; Platelet Count 223 10^3/uL (130-400); RBC 4.55 10^6/uL (4.36-5.78); RDW 12.6 % (11.8-14.1); RDW-SD 41.7 fL; WBC 6.44 10^3/uL (4.4-10.8)
[2025-01-29 21:09] LABS: PTT Activated 24.7 sec (20.6-30.2); Prothrombin Time 10.5 sec (9.1-11.1)
[2025-01-29 21:11] LABS: ALT 24 U/L (16-63); AST 21 U/L (15-37); Albumin 3.8 g/dL (3.4-5.0); Alkaline Phosphatase 87 U/L (46-116); Anion Gap 10.2 mmol/L (3-11); BUN 21 mg/dL (7-18); Bilirubin, Total 0.4 mg/dL (0.2-1.0); CO2 28.8 mmol/L (21.0-32.0); CREATININE 1.3 mg/dL (0.70-1.30); Calcium 9.3 mg/dL (8.5-10.1); Chloride 103 mmol/L (98-107); Glucose 261 mg/dL (74-106); Sodium 142 mmol/L (136-145); Total Protein 7.3 g/dL (6.4-8.2)
[2025-01-29] MEDS: Omnipaque 350 MG/ML 100 ML BTL IJ (21:36)
[2025-01-29] MEDS: Normal Saline - Diluent 50 ML VIAL IJ (21:37)
[2025-01-29] MEDS: Normal Saline Flush 10 ML SYR IVP (21:38)
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
== END 2025-01-29 22:39 | disposition home or self-care (01) ==
PROVIDERS: Emergency Provider Physician Assistant; PCP Internal Medicine
DX: S09.8XXA Other specified injuries of head, initial encounter (principal); R07.89 Other chest pain; Y04.8XXA Assault by other bodily force, initial encounter; Y93.F9 Activity, other caregiving; Y92.018 Other place in single-family (private) house as the place of occurrence of the external cause; Y99.0 Civilian activity done for income or pay
CPT/HCPCS: 36415; 70496; 70498; 80053; 86850; 86900; 86901; 99285; 70450; 73610; 85025; 85610; 85730; 99284; J3490

== ENCOUNTER 2025-02-26 13:06 | Outpatient (REF) | payer BC, SELFPAY ==
[2025-02-26 15:08] LABS: Microalb ug/mg Crea 14.2 ug/mg Cr
== END 2025-02-26 13:07 | disposition home or self-care (01) ==
LOC: NCHCN 13:06
PROVIDERS: PCP Internal Medicine; Visit Provider Family Medicine
DX: I10 Essential (primary) hypertension (principal)
CPT/HCPCS: 82043; 82570

== ENCOUNTER 2025-06-12 13:56 | Emergency (ER) | payer BC, SELFPAY ==
[2025-06-12 13:57] VITALS: BP 147/88; PULSE 82; RESP 18; TEMP 36.6; O2SAT 96
--- NOTE | 2025-06-12 14:05 | W.ED.GENAD ---
Discharge Plan Disposition Patient Disposition: Home Condition: Improving Discharge Details Clinical Impression: Headache, migraine Primary Care Provider: Jerry Ibrahim ED Provider: Osei Wells Home Meds and New Rx's Prescriptions: New sumatriptan 5 mg/actuation spray,non-aerosol 5 mg intranasal ONCE Qty: 1 0RF Rx Instructions: as a single dose; into each nostril naproxen 375 mg tablet 375 mg PO BID PRNQty: 20 0RF Continued magnesium oxide 400 mg (241.3 mg magnesium) tablet 200 mg PO DAILY losartan-hydrochlorothiazide 100-25 mg tablet 1 tab PO DAILY terazosin 5 mg capsule 5 mg PO QHS albuterol sulfate [Ventolin HFA] 90 mcg/actuation HFA aerosol inhaler 2 puff IH Q4H PRN sertraline [Zoloft] 50 mg tablet 50 mg PO DAILY methocarbamol 1,000 mg tablet 1,000 mg PO QID PRN meloxicam 15 mg tablet 15 mg PO DAILY Levemir U-100 Insulin 100 unit/mL solution 80 unit SC QHS Patient Comments: 40 U HS 05/18 metformin [Glucophage] 1,000 MG tablet 1,000 mg PO BID@0800,1700 gabapentin 300 MG capsule 600 mg PO BID amlodipine 5 mg tablet 10 mg PO DAILY epinephrine [EpiPen 2-Moiz] 0.3 mg/0.3 mL auto-injector 0.3 ml IM ONCE Qty: 2 0RF Rx Instructions: as a single dose; may repeat once (DME) Dexcom G7 Sensor Device MISCELLANEOUS Discharge Instructions Instructions: Migraine in adults, Headache, Adult ED Discharge Data Discharge Physician: Osei Wells HPI General Date/Time Provider Initiated Documentation: 06/12/25 14:03. HPI Narrative: Patient with a history of migraine headaches comes to the emergency department complaining of 2-day history of throbbing left-sided headache reports photophobia reports nausea and initially says he is has an hour vision disturbances. Weakness is blurred. Stated that he has had migraines in the past and had one done for 2 years and now they have recurred. Related Data Home Medications ?Medication ?Instructions ?Recorded ?Confirmed metformin 1,000 mg tablet 1,000 mg PO BID@0800,1700 05/02/13 06/12/25 (Glucophage) gabapentin 300 mg capsule 600 mg PO BID 09/22/13 06/12/25 albuterol sulfate 90 mcg/actuation 2 puff inhalation Q4H PRN 12/04/19 06/12/25 aerosol inhaler (Ventolin HFA) sertraline 50 mg tablet (Zoloft) 50 mg PO DAILY 12/04/19 06/12/25 terazosin 5 mg capsule 5 mg PO QHS 12/04/19 06/12/25 amlodipine 5 mg tablet 10 mg PO DAILY 12/13/19 06/12/25 losartan 100 1 tab PO DAILY 12/13/19 06/12/25 mg-hydrochlorothiazide 25 mg tablet magnesium oxide 400 mg (241.3 mg 200 mg PO DAILY 12/13/19 06/12/25 magnesium) tablet meloxicam 15 mg tablet 15 mg PO DAILY 08/31/23 06/12/25 methocarbamol 1,000 mg tablet 1,000 mg PO QID PRN 08/31/23 06/12/25 insulin detemir U-100 100 unit/mL 80 unit subcut QHS 04/27/24 06/12/25 subcutaneous solution (Levemir U-100 Insulin) epinephrine 0.3 mg/0.3 mL 0.3 ml IM ONCE #2 ea 08/20/24 06/12/25 injection, auto-injector (EpiPen 2-Moiz) blood-glucose sensor (ICAgen G7 01/29/25 06/12/25 Sensor device) naproxen 375 mg tablet 375 mg PO BID PRN #20 tabs 06/12/25 sumatriptan 5 mg/actuation nasal 5 mg intranasal ONCE #1 ea 06/12/25 spray Previous Rx's ?Medication ?Instructions ?Recorded epinephrine 0.3 mg/0.3 mL 0.3 ml IM ONCE #2 ea 08/20/24 injection, auto-injector (EpiPen 2-Moiz) naproxen 375 mg tablet 375 mg PO BID PRN #20 tabs 06/12/25 sumatriptan 5 mg/actuation nasal 5 mg intranasal ONCE #1 ea 06/12/25 spray Allergies Allergy/AdvReac Type Severity Reaction Status Date / Time venom-honey bee Allergy Severe Anaphylaxis Verified 06/12/25 14:01 lisinopril AdvReac Mild Other (See Verified 06/12/25 14:01 Comment) General Stated Complaint: Headache KALIN: 3 Review of Systems Narrative: Review of Systems: Constitutional: No fevers, chills, sweats Eye: No recent visual problems ENT: No ear pain, nasal congestion, sore throat Respiratory: No shortness of breath, cough Cardiovascular: No Chest pain, palpitations, syncope Gastrointestinal: No nausea, vomiting, diarrhea Genitourinary: No hematuria Jose/Lymph: Negative for bruising tendency, swollen lymph glands Endocrine: Negative for excessive thirst, excessive hunger Musculoskeletal: No back pain, neck pain, joint pain, muscle pain, decreased range of motion Integumentary: No rash, pruritus, abrasions Neurologic: Alert & oriented X 4 Psychiatric: No anxiety, depression Exam Narrative Exam Narrative: Exam; vitals signs as reported above normal Constitutional; In no acute distress, afebrile General: cooperative, healthy appearing, comfortable and no acute distress HEENT: Head: normal to inspection, no palpable skull fracture and normocephalic atraumatic Eyes: : appearance normal, both eyes and all related structures EOM intact bilaterally Pupils: PERRL : conjunctiva normal Direct ophthalmoscopy: normal light reflex, normal conjunctiva, normal visual acuity Ears: Normal TM, normal external canal Nose: normal no rhinorreha Neck no JVD, supple non tender Neck: normal visual inspection, full ROM and no lymphadenopathy Chest: normal inspection of the chest Respiratory : normal respiratory effort and able to speak in complete sentences no wheezing no rales Cardio Rate: regular rate, rhythm: regular rhythm normal heart sounds S1 and S2 no murmurs, gallops, or rubs GI : normal to inspection, normal bowel sounds, soft, non tender, non distended, no organomegaly Back/Spine/ no CVA tenderness Thoracic/Lumbar Spine: no tenderness or deformities Skin no rashes or lesions Neuro: patient alert oriented x 4 and no meningeal signs, Cranial Nerves: CN's II-XI intact bilaterally, Cognition: normal cognition, Speech: speech normal, Gait: normal gait, Depp tendon reflexes normal 2+ muscle strength 5/5 bilaterally Extremities, no edema, full range of motion, normal strength Course Vital Signs Vital signs: Vital Signs Temperature 36.6 C 06/12/25 13:57 Pulse 82 06/12/25 13:57 Respiratory Rate 18 06/12/25 13:57 Blood Pressure 147/88 H 06/12/25 13:57 Pulse Oximetry 96 06/12/25 13:57 Temperature 36.6 C 06/12/25 13:57 Temperature Source Temporal Artery Scan 06/12/25 13:57 Pulse 82 06/12/25 13:57 Respiratory Rate 18 06/12/25 13:57 Blood Pressure 147/88 H 06/12/25 13:57 Pulse Oximetry 96 06/12/25 13:57 Oxygen Delivery Method Room Air 06/12/25 13:57 Oxygen Flow Rate 0 06/12/25 13:57 Medical Decision Making MDM: Summary: Patient presents emergency department with a migraine headache who has had in the past. He had labs done which included sed rate CMP and CBC which were all normal. CT scan was read as negative. He was given IV normal saline, Toradol, Reglan, and Benadryl and acetaminophen with final resolution of his headache. He will be discharged home with sumatriptan inhaler and Naprosyn as needed Data Review Analysis All the data on this patient was reviewed by me including laboratory and imaging studies as well as bedside studies performed by me Independent review of Studies Imaging CT scan negative as reported above Lab: Labs are unremarkable Risk Stratification: Patient with a treated for migraine headache will be discharged home Differential Diagnosis: 1. Migraine headache 2. Tension headache 3. Cluster headache 4. Subarachnoid hemorrhage Consultants: Shared disposition: Patient is status post will follow accordingly Impression: Lab Data Lab results reviewed: Yes I reviewed the patient's lab results. [facility] All Active Problems (Updated 06/12/25 @ 17:45 by Osei Wells MD) Headache, migraine (Chronic) Encounter for screening colonoscopy (Acute) Ulcer of other part of foot (Acute) Hematuria (Acute) Abscess of leg, right (Acute) Abscess of left thigh (Acute) Abscess of right thigh (Acute) Herniation of intervertebral disc between L5 and S1 (Acute) Type 2 diabetes mellitus (Chronic) Achilles rupture, left (Acute) Plantar fascial fibromatosis (Acute) Subcutaneous mass of right foot (Acute) plantar aspect Hypertension (Chronic) Depression (Chronic) Herpes, genital (Acute) Overweight (Acute) Diabetic retinopathy, background (Acute) Neck pain, chronic (Acute) Diabetic peripheral neuropathy (Acute) Night sweats (Acute) Tinea pedis (Acute) Preventative health care (Acute) Cough (Acute) Sexual dysfunction (Acute) Bronchial pneumonia (Acute) Syncope (Chronic) Tendonitis, Achilles, right (Acute) Medical History Tubular adenoma of colon (~05/2024) Family hx of colon cancer Brother Sleep apnea does not use device Diabetes Surgical History History of colonoscopy (~05/2024) Hx of foot surgery Hx of wisdom tooth extraction Hx of arthroscopy of shoulder Hx of elbow surgery torn tendon History of nasal surgery H/O arthroscopic knee surgery Family History Brother Colon cancer Social History Smoking/Tobacco Use Status: Never Smoking risk assessment performed?: Yes Alcohol Intake: current Alcohol Intake frequency: holidays/special occasions only Alcohol type: beer Drug use: Never Substance use type: does not use Household members: none Housing: house Number of Children: 0 current occupation: employed - [employer]. Current gender identity: male Additional Social history: [employer]
[2025-06-12] MEDS: Ketorolac 30 MG/ML VIAL IVP (15:01)
[2025-06-12] MEDS: Metoclopramide 10 MG/2 ML VIAL IVP (15:02)
[2025-06-12] MEDS: Normal Saline 1,000 ML 1000 ML IV (15:02)
[2025-06-12 15:07] VITALS: BP 147/88; PULSE 82; RESP 18; TEMP 36.6; O2SAT 96
[2025-06-12 15:09] LABS: Abs Immature Grans 0.02 10^3/uL (0.0-0.06); HCT 38.0 % (40.0-50.0); HGB 13.3 g/dL (13.5-17.5); Immature Grans % 0.4 %; MCH 30.9 pg (27.0-33.0); MCHC 35.0 % (32.0-36.0); MCV 88 fL (80-95); MPV 10.2 fL (8.0-11.0); Platelet Count 177 10^3/uL (130-400); RBC 4.30 10^6/uL (4.36-5.78); RDW 12.4 % (11.8-14.1); RDW-SD 39.8 fL; WBC 5.05 10^3/uL (4.4-10.8)
[2025-06-12 15:14] LABS: ESR 6 mm/hr (0-20)
[2025-06-12 15:24] LABS: ALT 17 U/L (16-63); AST 21 U/L (15-37); Albumin 3.7 g/dL (3.4-5.0); Alkaline Phosphatase 66 U/L (46-116); Anion Gap 5.8 mmol/L (3-11); BUN 17 mg/dL (7-18); Bilirubin, Total 0.6 mg/dL (0.2-1.0); CO2 29.2 mmol/L (21.0-32.0); Calcium 8.7 mg/dL (8.5-10.1); Chloride 105 mmol/L (98-107); Estimated GFR 90.00 (mL/min/1.73m2); Glucose 136 mg/dL (74-106); Potassium 4.4 mmol/L (3.5-5.1); Sodium 140 mmol/L (136-145); Total Protein 6.8 g/dL (6.4-8.2)
--- NOTE | 2025-06-12 15:50 | DI.CT_ITS ---
Exam(s) CT HEAD WO EXAM: CT HEAD WO CLINICAL HISTORY: headache. TECHNIQUE: Imaging Protocol: Axial computed tomography images with coronal and sagittal reformatted images were created and reviewed COMPARISON: CT CT BRAIN NECK CTA from 01/29/[address] HEAD WO from 01/29/2025 FINDINGS: Ventricles and Extra axial spaces: Normal in size and morphology for the patient's age. Hemorrhage: None. Cerebral parenchyma: There is again seen a linear area of hyperdensity in the left temporal lobe consistent with the venous malformation. There is a normal schaffer-white matter differentiation. No evidence of an acute territorial infarct. Midline shift: None. Brainstem/Cerebellum: Normal. Calvarium: Normal. Visualized Paranasal sinuses/Mastoids: Clear. Soft Tissues: Unremarkable. IMPRESSION: No acute intracranial process. RADIATION DOSE DELIVERED: 908.25mGy.cm Total DLP DATA REPOSITORY: All CT scans at this facility are submitted to the National Radiology Data Registry (NRDR) Dose Index Registry (DIR) with the [employer] (ACR). RADIATION OPTIMIZATION: All CT scans at this facility use at least one of these dose optimization techniques: automated exposure control; mA and/or kV adjustment per patient size (includes targeted exams where dose is matched to clinical indication); or iterative reconstruction.
[2025-06-12] MEDS: diphenhydrAMINE 50 MG/ML VIAL IVP (16:03)
[2025-06-12 16:04] VITALS: BP 141/85; PULSE 74
[2025-06-12] MEDS: ACETAMINOPHEN 1,000 MG/100 ML BAG 400 MG IVPB (16:31)
[2025-06-12 17:25] VITALS: BP 135/70; PULSE 79; O2SAT 98
[2025-06-12 17:56] VITALS: BP 181/94; PULSE 68; TEMP 35.9; O2SAT 97
== END 2025-06-12 18:00 | disposition home or self-care (01) ==
PROVIDERS: Emergency Provider Emergency Medicine Emergency Medical Services; PCP Internal Medicine
DX: G43.909 Migraine, unspecified, not intractable, without status migrainosus (principal)
CPT/HCPCS: 99284 ×2; 96375; 80053; 85652; 96361; 96365; 70450; 85025; J0131; J1200; J1885; J2765

== ENCOUNTER 2025-10-08 10:35 | Emergency (ER) | payer BC, SELFPAY ==
[2025-10-08 11:09] VITALS: BP 148/87; PULSE 80; RESP 24; TEMP 37.2; O2SAT 95
--- NOTE | 2025-10-08 12:45 | RT.EKG_ITS ---
APPROVED REPORT Exam: Resting ECG Reason for Exam: CP Patient Location: E HR:72 bpm ECG Measurements Heart Rate 72 AXIS SC 178 P 38 QRSd 80 QRS 20 QT 370 T 55 QTc 407 Conclusion Sinus rhythm...normal P axis, V-rate 60- 99 No Occlusion ND
--- NOTE | 2025-10-08 12:49 | W.ED.GENAD ---
Discharge Plan Disposition Patient Disposition: Home Condition: Good Discharge Details Clinical Impression: URI (upper respiratory infection), Nausea & vomiting Primary Care Provider: Jerry Ibrahim ED Provider: Krupa Mock Home Meds and New Rx's Prescriptions: New ondansetron 4 mg tablet,disintegrating 4 mg PO Q6H PRN (Reason: nausea and vomiting) Qty: 10 0RF Continued magnesium oxide 400 mg (241.3 mg magnesium) tablet 200 mg PO DAILY losartan-hydrochlorothiazide 100-25 mg tablet 1 tab PO DAILY terazosin 5 mg capsule 5 mg PO QHS albuterol sulfate [Ventolin HFA] 90 mcg/actuation HFA aerosol inhaler 2 puff IH Q4H PRN sertraline [Zoloft] 50 mg tablet 50 mg PO DAILY methocarbamol 1,000 mg tablet 1,000 mg PO QID PRN meloxicam 15 mg tablet 15 mg PO DAILY Levemir U-100 Insulin 100 unit/mL solution 80 unit SC QHS Patient Comments: 40 U HS 718 metformin [Glucophage] 1,000 MG tablet 1,000 mg PO BID@0800,1700 gabapentin 300 MG capsule 600 mg PO BID amlodipine 5 mg tablet 10 mg PO DAILY epinephrine [EpiPen 2-Moiz] 0.3 mg/0.3 mL auto-injector 0.3 ml IM ONCE Qty: 2 0RF Rx Instructions: as a single dose; may repeat once (DME) Dexcom G7 Sensor Device MISCELLANEOUS sumatriptan 5 mg/actuation spray,non-aerosol 5 mg intranasal ONCE Qty: 1 0RF Rx Instructions: as a single dose; into each nostril naproxen 375 mg tablet 375 mg PO BID PRNQty: 20 0RF Discharge Instructions Instructions: Nausea and Vomiting, Adult ED Additional Instructions: As we discussed, your labs and imaging are very reassuring here today. Your symptoms are most consistent with a viral illness. Please continue to encourage hydration. You may use Tylenol and/or ibuprofen as needed for discomfort. Please take the Zofran as prescribed to help with any recurrent nausea or vomiting. You may advance your diet but please do so slowly with easy to digest foods such as bananas, rice, applesauce, toast. Please follow-up with primary care in 1 week for reevaluation. If you develop inability stay hydrated, difficulty breathing, shortness of breath or other new/worsening symptom please seek care urgently once again. Stand Alone Forms: Portal Information Referrals: Jerry Ibrahim MD [Primary Care Provider, Medicine] Discharge Data Discharge Date/Time-TO BE ENTERED AT DEPARTURE: 10/08/25 15:10 HPI General Date/Time Provider Initiated Documentation: 10/08/25 12:29. Limitations to Documentation: no limitations. Information obtained by: patient and RN notes reviewed. History of Present Illness 55 year old M presents to the emergency department with the chief complaint of nausea, vomiting, runny nose, cough, congestion, described as moderate, Patient started experiencing this day(s) (4) and it has been constant. No relieving factors improve symptom(s), No exacerbating factors reported . Patient notes cough, loss of appetite, malaise and nausea/vomiting; denies chest pain, fever/chills, headaches, rash, shortness of breath and weakness. Patient did receive the following treatments prior to arrival, none Related Data Home Medications ?Medication ?Instructions ?Recorded ?Confirmed metformin 1,000 mg tablet 1,000 mg PO BID@0800,1700 05/02/13 10/08/25 (Glucophage) gabapentin 300 mg capsule 600 mg PO BID 09/22/13 10/08/25 albuterol sulfate 90 mcg/actuation 2 puff inhalation Q4H PRN 12/04/19 10/08/25 aerosol inhaler (Ventolin HFA) sertraline 50 mg tablet (Zoloft) 50 mg PO DAILY 12/04/19 10/08/25 terazosin 5 mg capsule 5 mg PO QHS 12/04/19 10/08/25 amlodipine 5 mg tablet 10 mg PO DAILY 12/13/19 10/08/25 losartan 100 1 tab PO DAILY 12/13/19 10/08/25 mg-hydrochlorothiazide 25 mg tablet magnesium oxide 400 mg (241.3 mg 200 mg PO DAILY 12/13/19 10/08/25 magnesium) tablet meloxicam 15 mg tablet 15 mg PO DAILY 08/31/23 10/08/25 methocarbamol 1,000 mg tablet 1,000 mg PO QID PRN 08/31/23 10/08/25 insulin detemir U-100 100 unit/mL 80 unit subcut QHS 04/27/24 10/08/25 subcutaneous solution (Levemir U-100 Insulin) epinephrine 0.3 mg/0.3 mL 0.3 ml IM ONCE #2 ea 08/20/24 10/08/25 injection, auto-injector (EpiPen 2-Moiz) blood-glucose sensor (Dexcom G7 01/29/25 10/08/25 Sensor device) naproxen 375 mg tablet 375 mg PO BID PRN #20 tabs 06/12/25 10/08/25 sumatriptan 5 mg/actuation nasal 5 mg intranasal ONCE #1 ea 06/12/25 10/08/25 spray ondansetron 4 mg disintegrating 4 mg PO Q6H PRN nausea and 10/08/25 tablet vomiting #10 tabs Previous Rx's ?Medication ?Instructions ?Recorded epinephrine 0.3 mg/0.3 mL 0.3 ml IM ONCE #2 ea 08/20/24 injection, auto-injector (EpiPen 2-Moiz) naproxen 375 mg tablet 375 mg PO BID PRN #20 tabs 06/12/25 sumatriptan 5 mg/actuation nasal 5 mg intranasal ONCE #1 ea 06/12/25 spray ondansetron 4 mg disintegrating 4 mg PO Q6H PRN nausea and 10/08/25 tablet vomiting #10 tabs Allergies Allergy/AdvReac Type Severity Reaction Status Date / Time venom-honey bee Allergy Severe Anaphylaxis Verified 10/08/25 11:15 lisinopril AdvReac Mild Other (See Verified 10/08/25 11:15 Comment) General Stated Complaint: Nausea/Vomit/Diar KALIN: 3 Review of Systems Constitutional Constitutional: Reports as per HPI and Denies headache(s) Eyes Eyes: Reports as per HPI, Denies eye discharge and Denies irritation ENT Ears, Nose, Mouth, and Throat: Reports as per HPI and Denies headache(s) Cardiovascular Cardiovascular: Reports as per HPI, Denies chest pain and Denies dyspnea Respiratory Respiratory: Reports as per HPI and Denies dyspnea Gastrointestinal Gastrointestinal: Reports as per HPI, Denies abdominal pain and Denies change in bowel habits Integumentary/Breasts Skin/Breast: Reports as per HPI and Denies rash Neurologic Neurologic: Reports as per HPI and Denies headache(s) Exam Const General: cooperative, healthy appearing, comfortable, no acute distress, well developed and well groomed Nutritional Appearance: well nourished and overweight Orientation: alert and awake [facility] Head: normal to inspection, normocephalic and atraumatic Ears: hearing grossly normal bilaterally General nose exam: external nose normal and nares normal Face and sinus: sinuses nontender and face symmetric Mouth: oral mucosae normal, lip normal, tongue normal, oropharynx normal and moist mucous membranes Teeth and gingiva: dentition normal Throat: posterior oropharynx normal, tonsils normal and uvula midline Eyes General: appearance normal, both eyes and all related structures Neck Neck: normal visual inspection, full ROM, no lymphadenopathy and no meningeal signs Resp Effort & Inspection: normal respiratory effort, able to speak in complete sentences and no respiratory distress Auscultation: clear to auscultation bilaterally, no rales, no rhonchi and no wheezes Cardio Rate: regular rate Rhythm: regular rhythm Heart Sounds: S1 normal and S2 normal GI Inspection: normal to inspection Palpation: soft, not firm, no guarding, no pulsatile masses and nontender Percussion: normal to percussion Skin General skin exam: no rashes or lesions noted Neuro General: patient alert and patient awake Cognition: normal cognition Speech: speech normal Gait: normal gait Course Vital Signs Vital signs: Vital Signs Temperature 37.2 C 10/08/25 11:09 Pulse 80 10/08/25 11:09 Respiratory Rate 24 10/08/25 11:09 Blood Pressure 148/87 H 10/08/25 11:09 Pulse Oximetry 95 10/08/25 11:09 Temperature 37.2 C 10/08/25 11:09 Temperature Source Oral 10/08/25 11:09 Pulse 80 10/08/25 11:09 Respiratory Rate 24 10/08/25 11:09 Blood Pressure 148/87 H 10/08/25 11:09 Pulse Oximetry 95 10/08/25 11:09 Pain Level 0 10/08/25 11:09 Medical Decision Making Patient is a pleasant 55-year-old gentleman with past medical history significant for migraines, type 2 diabetes, hypertension, depression, peripheral neuropathy, presenting with chief complaint of GI upset for the past 2 days. He reports he has been having nausea and vomiting. No diarrhea. Normal bowel movements. No blood in his emesis. He denies any fevers at home. Denies any abdominal pain but states that has been uncomfortable with the severity of the nausea he has been experiencing. States that he is also has significant acid reflux which he reports is chronic for him but has been greatly exacerbated with the vomiting. States that this can radiate up into his chest. Also reports that he has had congestion and describes postnasal drip. On exam, patient appears nontoxic. Resting comfortably no acute distress. He is hemodynamically stable. He is lungs are clear although he did initially clear some sputum that sounded like it was in the upper airways, likely associated with the previously noted postnasal drip. He does not have any sinus tenderness he does have some cobblestoning of posterior pharynx. Normal cardiac exam. Abdomen is benign and nontender. Patient's primary concern seems to be associated with a URI, likely viral etiology. This could certainly be the source of the patient's nausea and vomiting as well. However, as the patient also has other comorbidities for ACS, in the setting of nausea and increased acid reflux, I do feel that EKG and troponin would be appropriate at this point. With the more significant malaise and what he is identifying as acid reflux, also considered pancreatitis and will obtain lipase. Labs reviewed. No leukocytosis. Stable H&H. CMP without significant abnormality. Lipase within normal limits. Troponin within normal limits. As the symptoms are going on for the past several days, I do not feel that repeat troponin is warranted at this time. He was negative for viral panel including RSV, COVID and flu. Chest x-ray reviewed by radiologist with no acute abnormality noted. Again, the patient's history and exam is most consistent with a viral etiology likely causing the cough, congestion, GI upset. I do not see indication at this point the patient is having any acute coronary syndrome, dissection, pulmonary emboli, sepsis, pancreatitis or other more emergent process. I feel that he can be treated as an outpatient with supportive care. Will prescribe Zofran in the event that he has recurrence of his nausea and vomiting. Encourage follow-up with primary care. Return precautions were discussed. All his questions and concerns were addressed and he is in agreement this plan. Dictation completed using [employer] dictation software. Please excuse any errors or permanent mold supervisor anomalies that may remain. PFSH All Active Problems (Updated 10/08/25 @ 14:58 by ERIC Nuñez) Nausea & vomiting (Acute) URI (upper respiratory infection) (Acute) Encounter for screening colonoscopy (Acute) Ulcer of other part of foot (Acute) Hematuria (Acute) Abscess of leg, right (Acute) Abscess of left thigh (Acute) Abscess of right thigh (Acute) Herniation of intervertebral disc between L5 and S1 (Acute) Type 2 diabetes mellitus (Chronic) Achilles rupture, left (Acute) Plantar fascial fibromatosis (Acute) Subcutaneous mass of right foot (Acute) plantar aspect Hypertension (Chronic) Depression (Chronic) Herpes, genital (Acute) Overweight (Acute) Diabetic retinopathy, background (Acute) Neck pain, chronic (Acute) Diabetic peripheral neuropathy (Acute) Night sweats (Acute) Tinea pedis (Acute) Preventative health care (Acute) Cough (Acute) Sexual dysfunction (Acute) Bronchial pneumonia (Acute) Syncope (Chronic) Tendonitis, Achilles, right (Acute) Medical History Tubular adenoma of colon (~05/2024) Family hx of colon cancer Brother Sleep apnea does not use device Diabetes Surgical History History of colonoscopy (~05/2024) Hx of foot surgery Hx of wisdom tooth extraction Hx of arthroscopy of shoulder Hx of elbow surgery torn tendon History of nasal surgery H/O arthroscopic knee surgery Family History Brother Colon cancer Social History Smoking/Tobacco Use Status: Never Smoking risk assessment performed?: Yes Alcohol Intake: current Alcohol Intake frequency: holidays/special occasions only Alcohol type: beer Drug use: Never Substance use type: does not use Household members: none Housing: house Number of Children: 0 current occupation: employed - [employer]. Current gender identity: male Do you feel safe at home: Yes Do you feel safe in your relationship?: Yes
[2025-10-08 13:25] LABS: Abs Immature Grans 0.02 10^3/uL (0.0-0.06); HCT 38.6 % (40.0-50.0); HGB 13.4 g/dL (13.5-17.5); Immature Grans % 0.2 %; MCH 31.0 pg (27.0-33.0); MCHC 34.7 % (32.0-36.0); MCV 89 fL (80-95); MPV 9.8 fL (8.0-11.0); Platelet Count 221 10^3/uL (130-400); RBC 4.32 10^6/uL (4.36-5.78); RDW 11.9 % (11.8-14.1); RDW-SD 39.0 fL; WBC 8.26 10^3/uL (4.4-10.8)
[2025-10-08] MEDS: Pantoprazole 40 MG VIAL IVP (13:29)
[2025-10-08] MEDS: Ondansetron 4 MG/2 ML VIAL IVP (13:30)
[2025-10-08] MEDS: Normal Saline 1,000 ML 1000 ML IV (13:30)
[2025-10-08 13:32] VITALS: BP 134/80; PULSE 85; RESP 18; TEMP 37.1; O2SAT 98
[2025-10-08 13:41] LABS: Lipase 26 U/L (<53); Magnesium 1.6 mg/dL (1.6-2.6)
[2025-10-08 13:43] LABS: ALT 14 U/L (10-49); AST 24 U/L (<34); Albumin 4.4 g/dL (3.2-5.0); Alkaline Phosphatase 77 U/L (46-116); Anion Gap 7.5 mmol/L (3-11); BUN 18 mg/dL (9-23); Bilirubin, Total 0.80 mg/dL (0.2-1.2); CO2 28.5 mmol/L (20.0-31.0); Calcium 8.9 mg/dL (8.3-10.6); Chloride 105 mmol/L (98-107); Glucose 106 mg/dL (74-106); Potassium 4.6 mmol/L (3.5-5.1); Sodium 141 mmol/L (136-145); Total Protein 7.1 g/dL (5.7-8.2)
[2025-10-08 13:44] LABS: Troponin I < 3 ng/L (<54)
--- NOTE | 2025-10-08 14:00 | DI.RAD_ITS ---
Exam(s) XR CHEST 2V PA LATERAL EXAM: XR CHEST 2V PA LATERAL CLINICAL HISTORY: cough TECHNIQUE: 2D digital imaging was performed. Two views. COMPARISON: CR XR CHEST 2V PA LATERAL from 09/01/2024 FINDINGS: HEART: Normal size. Aorta: Not dilated. PULMONARY VASCULATURE: Normal. MEDIASTINUM: Unremarkable. LUNGS: Suboptimally inflated but clear. PLEURAL SPACE: No pleural effusion or pneumothorax. BONE:Unremarkable for age. SOFT TISSUES: Unremarkable. IMPRESSION: No acute abnormality. DATA REPOSITORY: RADIATION DOSE DELIVERED:
[2025-10-08 14:06] LABS: COVID-19 PCR Negative (Negative); RSV PCR Negative (Negative)
[2025-10-08 15:09] VITALS: BP 151/83; PULSE 68; RESP 14; O2SAT 99
== END 2025-10-08 15:10 | disposition home or self-care (01) ==
PROVIDERS: Emergency Provider Physician Assistant; PCP Internal Medicine
DX: R11.2 Nausea with vomiting, unspecified (principal); J06.9 Acute upper respiratory infection, unspecified; E11.9 Type 2 diabetes mellitus without complications
CPT/HCPCS: 36415; 36416; 80053; 82962; 83690; 87637; 93005; 96361; 96374; 96375; 99284; 71046; 83735; 84484; 85025; 93010; 99283; J2405; J2470